=== PATIENT | female | born 1935 | race Caucasian/White ===

== ENCOUNTER 2016-04-11 16:10 | Emergency (ER) | payer MEDICARE ==
[2016-04-11 16:26] VITALS: TEMP 97
[2016-04-11] MEDS ORDERED: hydrALAZINE HCL 20 MG/ML 1 ML VIAL IVP STA ×3 (17:12→18:00)
[2016-04-11] MEDS ORDERED: SODIUM CHLORIDE 0.9% 1,000 ML IV STA (17:12)
--- NOTE | 2016-04-11 17:26 | ED ---
General Adult HPI - General Chief complaint: Headache Stated complaint: Dizzy, Blood Pressure Time Seen by Provider: 04/11/16 17:00 Source: patient, RN notes reviewed Mode of arrival: wheelchair Limitations: no limitations - History of Present Illness Initial comments: Patient is 80-year-old female who resents emergency room today with chief complaint of headaches off and on over the last week. She states seems to be there 1 day and gone the next. She states she noticed that today was elevated again. She states she talked to her niece who is a nurse [employer] to check her blood pressure. She states she noticed that her blood pressure was elevated. States is worse when she was standing better when she was laying down. She does admit that she's felt a little faint and dizzy today. Patient does admit to headache located in the front. She describes it as a sharp pain currently rates it a 4/10 and admitting that it does feel slightly better at this time. She denies any other complaints associated symptoms currently. - Related Data Home Medications Medication Instructions Recorded Confirmed Bimatoprost [Lumigan .01% Ophth 1 drop BOTH EYES HS 11/07/13 04/11/16 Soln] Furosemide [Lasix] 20 mg PO DAILY 11/07/13 04/11/16 Gabapentin [Neurontin] 600 mg PO DAILY 11/07/13 04/11/16 Isosorbide Mononitrate [Imdur] 60 mg PO QAM 11/07/13 04/11/16 Montelukast [Singulair] 10 mg PO HS 11/07/13 04/11/16 Warfarin [Coumadin] 5 mg PO SUWETHSA 11/07/13 04/11/16 Allopurinol [Zyloprim] 100 mg PO BID 07/09/14 04/11/16 Nitroglycerin Sl Tabs [Nitrostat] 0.4 mg SUBLINGUAL Q5M PRN 07/09/14 04/11/16 Warfarin [Coumadin] 2.5 mg PO MOTUFR 11/24/14 04/11/16 Budesonide [Pulmicort] 0.5 mg INHALATION RT-BID 03/29/16 04/11/16 HYDROcodone/APAP 7.5-325MG [[place] 1 tab PO Q6H PRN 03/29/16 04/11/16 7.5-325] Losartan-Hctz 50-12.5 mg [Hyzaar 1 tab PO DAILY 03/29/16 04/11/16 50-12.5] Meloxicam [Mobic] 15 mg PO DAILY 03/29/16 04/11/16 Metoprolol Tartrate [Lopressor] 25 mg PO BID 03/29/16 04/11/16 Omeprazole 20 mg PO BID 03/29/16 04/11/16 Simvastatin [Zocor] 40 mg PO HS 03/29/16 04/11/16 Sucralfate [Carafate] 1 gm PO AC-TID 03/29/16 04/11/16 traMADol HCL [Ultram] 50 mg PO Q8H PRN 03/29/16 04/11/16 Previous Rx's Medication Instructions Recorded Orphenadrine [Norflex] 100 mg PO Q12H #10 tablet.er 03/29/16 Allergies Allergy/AdvReac Type Severity Reaction Status Date / Time tape Allergy Unknown Uncoded 03/29/16 13:38 Review of Systems ROS Statement: Those systems with pertinent positive or pertinent negative responses have been documented in the HPI. ROS Other: All systems not noted in ROS Statement are negative. Past Medical History Past Medical History: Asthma, COPD, Hyperlipidemia, Hypertension, Osteoarthritis (OA) Additional Past Medical History / Comment(s): Hx. gout, osteoporosis, arthritis , deep venous thrombophletitis, hiatal hernial dermatitis glaucoma , pacemaker, degenerative disc disease History of Any Multi-Drug Resistant Organisms: None Reported Past Surgical History: Adenoidectomy, Appendectomy, Cholecystectomy, Hernia Repair, Orthopedic Surgery, Pacemaker, Tonsillectomy, Tubal Ligation Additional Past Surgical History / Comment(s): Hx throat nodule removed, mole left eye, D&C, bilat cataracts removed . RIGHT KNEE REPLACEMENT X 2. , hiatal hernia repair Past Anesthesia/Blood Transfusion Reactions: No Reported Reaction Type of Cardiac Device: Permanent Pacemaker Device Placement Date:: October 2012 Past Psychological History: No Psychological Hx Reported Smoking Status: Former smoker Past Alcohol Use History: None Reported Past Drug Use History: None Reported - Past Family History Father Additional Family Medical History / Comment(s): Mother-cardiac and cancer Father pulmonary fibrosis, Sister-melanoma 3 step siblings with cancer, dr oreilly told patient that she just clots fast but her siblings should be tested for MUTAHON-MTHFR gene General Exam - General Exam Comments Initial Comments: General: The patient is awake and alert, in no distress, and does not appear acutely ill. Eye: Pupils are equal, round and reactive to light, extra-ocular movements are intact. No nystagmus. There is normal conjunctiva bilaterally. No signs of icterus. Ears, nose, mouth and throat: There are moist mucous membranes and no oral lesions. Neck: The neck is supple, there is no tenderness or JVD. Cardiovascular: There is a regular rate and rhythm. No murmur, rub or gallop is appreciated. Respiratory: Lungs are clear to auscultation, respirations are non-labored, breath sounds are equal. No wheezes, stridor, rales, or rhonchi. Musculoskeletal: Normal ROM, no tenderness. Strength 5/5. Sensation intact. Pulses equal bilaterally 2+. Neurological: A&O x 3. CN II-XII intact, There are no obvious motor or sensory deficits. Coordination appears grossly intact. Speech is normal. Skin: Skin is warm and dry and no rashes or lesions are noted. Psychiatric: Cooperative, appropriate mood & affect, normal judgment. Limitations: no limitations Course Vital Signs 04/11/16 04/11/16 04/11/16 16:18 16:55 16:59 Temperature 97.0 F L Pulse Rate 80 77 65 Respiratory 16 18 18 Rate Blood Pressure 189/94 189/91 171/89 O2 Sat by Pulse 96 96 Oximetry 04/11/16 04/11/16 04/11/16 17:55 18:18 19:06 Temperature Pulse Rate 65 67 66 Respiratory 18 18 20 Rate Blood Pressure 176/87 160/76 188/76 O2 Sat by Pulse 98 98 98 Oximetry 04/11/16 04/11/16 04/11/16 19:31 19:55 20:25 Temperature Pulse Rate 77 76 79 Respiratory 20 18 22 Rate Blood Pressure 155/70 166/70 177/88 O2 Sat by Pulse 98 98 97 Oximetry EKG Findings - EKG Comments: EKG Findings:: EKG performed at 1900: Shows an electronically paced rhythm at 60 bpm. IL interval is 270. QRS 102. QT/QTc is 434/434. No acute ST changes. Medical Decision Making - Medical Decision Making Case discussed in detail with attending physician Dr. argueta. Patient's CAT scan negative for any acute abnormality. EKG shows electronically paced rhythm. Patient's labs been reviewed and are unremarkable. Patient blood pressure consistently 170s over 90s here in the emergency room. Given doses of hydralazine which she states made her feel "stuffy". Patient was given Benadryl which made her feel better. She was given her home medication as she states she is not taking her blood pressure medicines. She states she did not take them because she was not feeling well earlier. States she's noticed her blood pressure increases when she sits up or stands. Options were discussed with the patient about admission and stay in observation overnight if she was not feeling well. At this time she has been able to ambulate states she feels well to go home. Patient is advised to use her medications as prescribed and follow-up with her family doctor and room service waiter/waitress over the next 1-2 days. Advised to return if any symptoms increase or worsen or for any other concerns. - Lab Data Result diagrams: 04/11/16 Unknown 04/11/16 Unknown Lab Results 04/11/16 04/11/16 04/11/16 Range/Units Unknown Unknown Unknown WBC 8.4 (3.8-10.6) k/uL RBC 4.28 (3.80-5.40) m/uL Hgb 12.8 (11.4-16.0) gm/dL Hct 41.6 (34.0-46.0) % MCV 97.1 (80.0-100.0) fL MCH 29.8 (25.0-35.0) pg MCHC 30.7 L (31.0-37.0) g/dL RDW 14.3 (11.5-15.5) % Plt Count 403 (150-450) k/uL Neutrophils % 72 % Lymphocytes % 17 % Monocytes % 6 % Eosinophils % 3 % Basophils % 1 % Neutrophils # 6.0 (1.3-7.7) k/uL Lymphocytes # 1.5 (1.0-4.8) k/uL Monocytes # 0.5 (0-1.0) k/uL Eosinophils # 0.2 (0-0.7) k/uL Basophils # 0.1 (0-0.2) k/uL PT 11.9 (9.0-12.0) sec INR 1.2 (<1.1) APTT 26.1 (22.0-30.0) sec Sodium 142 (137-145) mmol/L Potassium 3.5 (3.5-5.1) mmol/L Chloride 107 (98-107) mmol/L Carbon Dioxide 25 (22-30) mmol/L Anion Gap 10 mmol/L BUN 20 H (7-17) mg/dL Creatinine 0.80 (0.52-1.04) mg/dL Est GFR (MDRD) Af Amer >60 (>60 ml/min/1.73 sqM) Est GFR (MDRD) Non-Af >60 (>60 ml/min/1.73 sqM) Glucose 86 (74-99) mg/dL Calcium 10.4 H (8.4-10.2) mg/dL Troponin I (0.000-0.034) ng/mL 04/11/16 Range/Units Unknown WBC (3.8-10.6) k/uL RBC (3.80-5.40) m/uL Hgb (11.4-16.0) gm/dL Hct (34.0-46.0) % MCV (80.0-100.0) fL MCH (25.0-35.0) pg MCHC (31.0-37.0) g/dL RDW (11.5-15.5) % Plt Count (150-450) k/uL Neutrophils % % Lymphocytes % % Monocytes % % Eosinophils % % Basophils % % Neutrophils # (1.3-7.7) k/uL Lymphocytes # (1.0-4.8) k/uL Monocytes # (0-1.0) k/uL Eosinophils # (0-0.7) k/uL Basophils # (0-0.2) k/uL PT (9.0-12.0) sec INR (<1.1) APTT (22.0-30.0) sec Sodium (137-145) mmol/L Potassium (3.5-5.1) mmol/L Chloride (98-107) mmol/L Carbon Dioxide (22-30) mmol/L Anion Gap mmol/L BUN (7-17) mg/dL Creatinine (0.52-1.04) mg/dL Est GFR (MDRD) Af Amer (>60 ml/min/1.73 sqM) Est GFR (MDRD) Non-Af (>60 ml/min/1.73 sqM) Glucose (74-99) mg/dL Calcium (8.4-10.2) mg/dL Troponin I <0.012 (0.000-0.034) ng/mL Disposition Clinical Impression: Hypertension, Lightheaded Disposition: HOME SELF-CARE Condition: Good Instructions: Lightheadedness (ED) Additional Instructions: Please follow-up with your family doctor and room service waiter/waitress over the next 1-2 days. Please use medications as previously prescribed for your blood pressure. Please return to emergency room if any symptoms increase or worsen or for any other concerns. Time of Disposition: 20:30
[2016-04-11 17:51] LABS: Basophils # (A) 0.1 k/uL (0-0.2); Basophils % (A) 1 %; CH 31.4; CHCM 32.5; Eosinophils # (A) 0.2 k/uL (0-0.7); Eosinophils % (A) 3 %; HCT 41.6 % (34.0-46.0); HDW 3.05; HGB 12.8 gm/dL (11.4-16.0); Luc # (Auto) 0.13; Luc % (Auto) 2; Lymphocytes # (A) 1.5 k/uL (1.0-4.8); Lymphocytes % (A) 17 %; MCH 29.8 pg (25.0-35.0); MCHC 30.7 g/dL (31.0-37.0); MCV 97.1 fL (80.0-100.0); Mean Platelet Volume 7.7; Monocytes # (A) 0.5 k/uL (0-1.0); Monocytes % (A) 6 %; Neutrophils % (A) 72 %; RBC 4.28 m/uL (3.80-5.40); RDW 14.3 % (11.5-15.5); WBC 8.4 k/uL (3.8-10.6); WBC (Perox) 8.53
--- NOTE | 2016-04-11 17:56 | CT ---
EXAMINATION TYPE: CT brain wo con DATE OF EXAM: 04/11/2016 5:48 PM COMPARISON: 02/15/2016 HISTORY: Patient complains of headache and high blood pressure. CT DLP: 1036 mGycm Automated exposure control for dose reduction was used. FINDINGS: There is cerebral cortical atrophy. There is no mass effect or midline shift. There is no sign of int racranial hemorrhage. The calvarium is intact. IMPRESSION: Cerebral atrophy. No acute intracranial abnormality. No change.
[2016-04-11 18:02] LABS: Anion Gap 10 mmol/L; Blood Urea Nitrogen 20 mg/dL (7-17); Calcium 10.4 mg/dL (8.4-10.2); Carbon Dioxide 25 mmol/L (22-30); Chloride 107 mmol/L (98-107); Glucose 86 mg/dL (74-99); INR 1.2 (<1.1); Non-African American GFR(MDRD) >60 (>60 ml/min/1.73 sqM); Partial Thromboplastin Time 26.1 sec (22.0-30.0); Potassium 3.5 mmol/L (3.5-5.1); Prothrombin Time 11.9 sec (9.0-12.0); Sodium 142 mmol/L (137-145)
[2016-04-11] MEDS ORDERED: diphenhydrAMINE 50 MG/ML 1 ML VIAL IVP STA (18:24)
[2016-04-11] MEDS ORDERED: ACETAMINOPHEN IV (For NPO) 1,000 MG in SALINE 100 100ML.BAG IVPB STA (18:36)
[2016-04-11] MEDS ORDERED: HYDROcodone/APAP 7.5-325MG 1 EACH TAB PO ONE (18:38)
[2016-04-11] MEDS ORDERED: LOSARTAN-HCTZ 50-12.5 MG 1 EACH TAB PO STA (19:09)
[2016-04-11] MEDS ORDERED: METOPROLOL TARTRATE 25 MG TAB PO STA (19:09)
[2016-04-11] MEDS ORDERED: LORazepam 2 MG/ML SYRINGE IV STA (19:10)
[2016-04-11 20:27] VITALS: BP 177/88; PULSE 79; RESP 22
== END 2016-04-11 20:46 | disposition home or self-care (01) ==
LOC: EC 16:10
DX: I10 Essential (primary) hypertension (principal); R51 Headache; G31.9 Degenerative disease of nervous system, unspecified; J44.9 Chronic obstructive pulmonary disease, unspecified; J45.909 Unspecified asthma, uncomplicated; M81.0 Age-related osteoporosis without current pathological fracture; M19.90 Unspecified osteoarthritis, unspecified site; H40.9 Unspecified glaucoma; Z95.0 Presence of cardiac pacemaker; Z79.01 Long term (current) use of anticoagulants; Z91.048 Other nonmedicinal substance allergy status; Z86.718 Personal history of other venous thrombosis and embolism; Z87.891 Personal history of nicotine dependence; Z79.899 Other long term (current) drug therapy
CPT/HCPCS: 99284; 96374; 96375 ×2; 96376; 96361 ×3; 36415; 93005; 80048; 84484; 85025; 85610; 85730; 70450; J2060; J0360; J1200

== ENCOUNTER 2016-04-12 09:36 | Observation (INO) | payer MEDICARE ==
[2016-04-12] MEDS ORDERED: METOCLOPRAMIDE 5 MG/ML 2 ML VIAL IVP STA (10:10)
[2016-04-12] MEDS ORDERED: MECLIZINE 12.5 MG TAB PO STA (10:10)
[2016-04-12] MEDS ORDERED: SODIUM CHLORIDE 0.9% 1,000 ML IV STA (10:10)
--- NOTE | 2016-04-12 10:51 | XR ---
EXAMINATION TYPE: XR chest 2V DATE OF EXAM: 04/12/2016 10:38 AM COMPARISON: November 26, 2014 HISTORY: Shortness of breath TECHNIQUE: Frontal and lateral views of the chest are obtained. FINDINGS: Scattered senescent parenchymal changes noted. Hyperinflation compatible with COPD. No evidence for infiltrate. No evidence for atelectasis. Heart size is stable. Mediastinal structures are stable and grossly unremarkable. No evidence for hilar prominence. Degenerative changes dorsal spine. IMPRESSION: 1. No evidence for acute pulmonary disease.
--- NOTE | 2016-04-12 10:52 | XR ---
EXAMINATION TYPE: XR KUB DATE OF EXAM: 04/12/2016 10:39 AM COMPARISON: NONE HISTORY: Pain TECHNIQUE: Single supine KUB image of the abdomen is obtained FINDINGS: Small bowel demonstrates no evidence for dilatation or air fluid levels. Gas and fecal material is seen in non-distended colon. No convincing evidence for pneumoperitoneum. No unusual calcifications. The lung bases are clear. The osseous structures are intact. IMPRESSION: 1. Overall nonobstructive bowel gas pattern.
[2016-04-12 10:54] LABS: Basophils # (A) 0.1 k/uL (0-0.2); Basophils % (A) 1 %; CHCM 32.7; Eosinophils # (A) 0.1 k/uL (0-0.7); Eosinophils % (A) 1 %; HCT 42.3 % (34.0-46.0); HDW 3.05; HGB 13.6 gm/dL (11.4-16.0); Luc # (Auto) 0.07; Luc % (Auto) 1; Lymphocytes # (A) 1.3 k/uL (1.0-4.8); Lymphocytes % (A) 13 %; MCH 30.8 pg (25.0-35.0); MCHC 32.2 g/dL (31.0-37.0); MCV 95.6 fL (80.0-100.0); Mean Platelet Volume 8.2; Monocytes # (A) 0.5 k/uL (0-1.0); Monocytes % (A) 6 %; Neutrophils # (A) 7.8 k/uL (1.3-7.7); Neutrophils % (A) 80 %; RBC 4.42 m/uL (3.80-5.40); RDW 14.5 % (11.5-15.5); WBC 9.8 k/uL (3.8-10.6); WBC (Perox) 9.77
[2016-04-12 11:03] LABS: ALT 37 U/L (9-52); AST 31 U/L (14-36); Alkaline Phosphatase 162 U/L (38-126); Amylase 115 U/L (30-110); Anion Gap 11 mmol/L; Blood Urea Nitrogen 16 mg/dL (7-17); Calcium 10.7 mg/dL (8.4-10.2); Carbon Dioxide 25 mmol/L (22-30); Chloride 108 mmol/L (98-107); Glucose 123 mg/dL (74-99); Non-African American GFR(MDRD) >60 (>60 ml/min/1.73 sqM); Potassium 4.1 mmol/L (3.5-5.1); Sodium 144 mmol/L (137-145); Total Bilirubin 0.7 mg/dL (0.2-1.3); Total Protein 7.5 g/dL (6.3-8.2)
--- NOTE | 2016-04-12 11:42 | ED ---
Nausea/Vomiting/Diarrhea HPI - General Chief complaint: Nausea/Vomiting/Diarrhea Stated complaint: Nausea/Vomiting Time Seen by Provider: 04/12/16 09:56 Source: patient, RN notes reviewed Mode of arrival: EMS Limitations: no limitations - History of Present Illness Initial comments: 80-year-old female presents emergency Department with chief complaint of nausea vomiting. Patient was seen here yesterday for dizziness. Patient states that she was not sent home been medications. He states that she continues to be dizzy. Patient states that she's been vomiting all night long. Patient states is exacerbated with movements. She denies any chest pain. Has any shortness of breath. Patient denies fever, chills, diarrhea. She states she is very nauseated and has a headache. Patient did have CT, lab work yesterday which showed no acute abnormality's. Patient states her blood pressure was elevated yesterday. - Related Data Home Medications Medication Instructions Recorded Confirmed Bimatoprost [[place] .01% Ophth 1 drop BOTH EYES HS 11/07/13 04/12/16 Soln] Furosemide [Lasix] 20 mg PO DAILY 11/07/13 04/12/16 Gabapentin [Neurontin] 600 mg PO DAILY 11/07/13 04/12/16 Isosorbide Mononitrate [Imdur] 60 mg PO QAM 11/07/13 04/12/16 Montelukast [Singulair] 10 mg PO HS 11/07/13 04/12/16 Warfarin [Coumadin] 5 mg PO SUWETHSA 11/07/13 04/12/16 Allopurinol [Zyloprim] 100 mg PO BID 07/09/14 04/12/16 Nitroglycerin Sl Tabs [Nitrostat] 0.4 mg SUBLINGUAL Q5M PRN 07/09/14 04/12/16 Warfarin [Coumadin] 2.5 mg PO MOTUFR 11/24/14 04/12/16 Budesonide [Pulmicort] 0.5 mg INHALATION RT-BID 03/29/16 04/12/16 HYDROcodone/APAP 7.5-325MG [[place] 1 tab PO Q6H PRN 03/29/16 04/12/16 7.5-325] Losartan-Hctz 50-12.5 mg [Hyzaar 1 tab PO DAILY 03/29/16 04/12/16 50-12.5] Meloxicam [Mobic] 15 mg PO DAILY 03/29/16 04/12/16 Metoprolol Tartrate [Lopressor] 25 mg PO BID 03/29/16 04/12/16 Omeprazole 20 mg PO BID 03/29/16 04/12/16 Simvastatin [Zocor] 40 mg PO HS 03/29/16 04/12/16 Sucralfate [Carafate] 1 gm PO AC-TID 03/29/16 04/12/16 traMADol HCL [Ultram] 50 mg PO Q8H PRN 03/29/16 04/12/16 Previous Rx's Medication Instructions Recorded Orphenadrine [Norflex] 100 mg PO Q12H #10 tablet.er 03/29/16 Allergies Allergy/AdvReac Type Severity Reaction Status Date / Time tape Allergy Unknown Uncoded 04/12/16 09:51 Review of Systems ROS Statement: Those systems with pertinent positive or pertinent negative responses have been documented in the HPI. ROS Other: All systems not noted in ROS Statement are negative. Past Medical History Past Medical History: Asthma, COPD, Hyperlipidemia, Hypertension, Osteoarthritis (OA) Additional Past Medical History / Comment(s): Hx. gout, osteoporosis, arthritis , deep venous thrombophletitis, hiatal hernial dermatitis glaucoma , pacemaker, degenerative disc disease History of Any Multi-Drug Resistant Organisms: None Reported Past Surgical History: Adenoidectomy, Appendectomy, Cholecystectomy, Hernia Repair, Orthopedic Surgery, Pacemaker, Tonsillectomy, Tubal Ligation Additional Past Surgical History / Comment(s): Hx throat nodule removed, mole left eye, D&C, bilat cataracts removed . RIGHT KNEE REPLACEMENT X 2. , hiatal hernia repair Past Anesthesia/Blood Transfusion Reactions: No Reported Reaction Type of Cardiac Device: Permanent Pacemaker Device Placement Date:: October 2012 Past Psychological History: No Psychological Hx Reported Smoking Status: Former smoker Past Alcohol Use History: None Reported Past Drug Use History: None Reported - Past Family History Father Additional Family Medical History / Comment(s): Mother-cardiac and cancer Father pulmonary fibrosis, Sister-melanoma 3 step siblings with cancer, dr oreilly told patient that she just clots fast but her siblings should be tested for MUTAHON-MTHFR gene General Exam Limitations: no limitations General appearance: alert, in no apparent distress Head exam: Present: atraumatic, normocephalic, normal inspection Eye exam: Present: normal appearance, PERRL, EOMI. Absent: scleral icterus, conjunctival injection, periorbital swelling ENT exam: Present: normal exam, normal oropharynx, mucous membranes moist, TM's normal bilaterally, normal external ear exam Neck exam: Present: normal inspection, full ROM. Absent: tenderness, meningismus, lymphadenopathy Respiratory exam: Present: normal lung sounds bilaterally. Absent: respiratory distress, wheezes, rales, rhonchi, stridor Cardiovascular Exam: Present: regular rate, normal rhythm, normal heart sounds. Absent: systolic murmur, diastolic murmur, rubs, gallop, clicks GI/Abdominal exam: Present: soft, normal bowel sounds. Absent: distended, tenderness, guarding, rebound, rigid Neurological exam: Present: alert, oriented X3, CN II-XII intact Skin exam: Present: warm, dry, intact, normal color. Absent: rash Course Vital Signs 04/12/16 09:48 Temperature 97 F L Pulse Rate 62 Respiratory 20 Rate Blood Pressure 184/82 O2 Sat by Pulse 96 Oximetry Medical Decision Making - Medical Decision Making 72-year-old female presented for dizziness. Patient UNABLE to ambulate here in emergency department. Patient fell outpatient treatment. Patient will be admitted at this time. - Lab Data Result diagrams: 04/12/16 10:23 04/12/16 10:23 Lab Results 04/12/16 04/12/16 04/12/16 Range/Units 10:23 10:23 10:23 WBC 9.8 (3.8-10.6) k/uL RBC 4.42 (3.80-5.40) m/uL Hgb 13.6 (11.4-16.0) gm/dL Hct 42.3 (34.0-46.0) % MCV 95.6 (80.0-100.0) fL MCH 30.8 (25.0-35.0) pg MCHC 32.2 (31.0-37.0) g/dL RDW 14.5 (11.5-15.5) % Plt Count 432 (150-450) k/uL Neutrophils % 80 % Lymphocytes % 13 % Monocytes % 6 % Eosinophils % 1 % Basophils % 1 % Neutrophils # 7.8 H (1.3-7.7) k/uL Lymphocytes # 1.3 (1.0-4.8) k/uL Monocytes # 0.5 (0-1.0) k/uL Eosinophils # 0.1 (0-0.7) k/uL Basophils # 0.1 (0-0.2) k/uL Sodium 144 (137-145) mmol/L Potassium 4.1 (3.5-5.1) mmol/L Chloride 108 H (98-107) mmol/L Carbon Dioxide 25 (22-30) mmol/L Anion Gap 11 mmol/L BUN 16 (7-17) mg/dL Creatinine 0.77 (0.52-1.04) mg/dL Est GFR (MDRD) Af Amer >60 (>60 ml/min/1.73 sqM) Est GFR (MDRD) Non-Af >60 (>60 ml/min/1.73 sqM) Glucose 123 H (74-99) mg/dL Calcium 10.7 H (8.4-10.2) mg/dL Total Bilirubin 0.7 (0.2-1.3) mg/dL AST 31 (14-36) U/L ALT 37 (9-52) U/L Alkaline Phosphatase 162 H (38-126) U/L Troponin I <0.012 (0.000-0.034) ng/mL Total Protein 7.5 (6.3-8.2) g/dL Albumin 4.1 (3.5-5.0) g/dL Amylase 115 H (30-110) U/L Lipase 86 (23-300) U/L Disposition Clinical Impression: Dizziness, Weakness, Hypertension Disposition: ADMITTED IP TO THIS [facility] Time of Disposition: 13:04
[2016-04-12] MEDS ORDERED: NALOXONE 0.4 MG/ML 1 ML VIAL IV PRN (13:04)
[2016-04-12] MEDS ORDERED: ONDANSETRON 4 MG/2 ML VIAL IVP PRN (13:04)
[2016-04-12] MEDS ORDERED: MECLIZINE 25 MG TAB PO PRN (13:05)
[2016-04-12 13:35] LABS: INR 1.2 (<1.1); Partial Thromboplastin Time 26.8 sec (22.0-30.0); Prothrombin Time 11.6 sec (9.0-12.0)
[2016-04-12] MEDS ORDERED: RX INFO: IV CONTRAST WAS GIVEN 1 EACH MISC MISCELLANE PRN (14:00)
[2016-04-12 14:08] LABS: Appearance,Urine Clear (Clear); Bilirubin,Urine Negative (Negative); Glucose,Urine (UA) Negative (Negative); Ketones,Urine Trace (Negative); Leukocyte Esterase,Urine Trace (Negative); Mucus,Urine Rare /hpf; Nitrite,Urine Negative (Negative); Particle Count 2494; Protein,Urine Negative (Negative); RBC,Urine 2 /hpf (0-5); Specific Gravity,Urine 1.015 (1.001-1.035); Squamous Epithelial Cell,Urine 3 /hpf (0-4); UA Billing (MACRO vs. MICRO) MICRO; Urobilinogen,Urine <2.0 mg/dL (<2.0); WBC,Urine 2 /hpf (0-5)
[2016-04-12] MEDS: SODIUM CHLORIDE 0.9% 1,000 ML IV SCH (14:20)
--- NOTE | 2016-04-12 15:09 | CT ---
EXAMINATION TYPE: CT brain w con DATE OF EXAM: 04/12/2016 2:56 PM COMPARISON: CT brain from yesterday HISTORY: Headache and dizziness. CT DLP: 1008.00 mGycm Automated exposure control for dose reduction was used. CONTRAST: CT scan of the head is performed with IV Contrast, patient injected with 100 mL of Omnipaque 300. FINDINGS: There is no abnormal enhancing mass or midline shift identified. There is ventricular and sulcal prom inence consistent with age-related cerebral atrophy. Neither lens is well-seen. Visualized paranasal sinuses are clear. IMPRESSION: No abnormal enhancing intraparenchymal mass is present. Moderate diffuse age-related atrophy is redem onstrated felt stable.
[2016-04-12] MEDS: PANTOPRAZOLE 40 MG TABLET PO SCH (17:19)
[2016-04-12] MEDS ORDERED: WARFARIN 2.5 MG TAB PO SCH (18:00)
[2016-04-12] MEDS ORDERED: traMADol 50 MG TAB PO PRN (19:48)
[2016-04-12] MEDS ORDERED: HYDROcodone/APAP 7.5-325MG 1 EACH TAB PO PRN (19:48)
[2016-04-12] MEDS: BUDESONIDE 0.5 MG/2 ML NEBU INHALATION SCH (20:23)
[2016-04-12] MEDS: WARFARIN 5 MG TAB PO SCH (20:48)
[2016-04-12] MEDS: ALLOPURINOL 100 MG TAB PO SCH (20:49)
[2016-04-12] MEDS: LOSARTAN-HCTZ 50-12.5 MG 1 EACH TAB PO SCH (20:49)
[2016-04-12] MEDS: CYCLOBENZAPRINE 10 MG TAB PO SCH (20:49)
[2016-04-12] MEDS: METOPROLOL TARTRATE 50 MG TAB PO SCH (20:49)
[2016-04-12] MEDS ORDERED: ATORVASTATIN 20 MG TAB PO SCH (21:00)
[2016-04-12] MEDS ORDERED: LATANOPROST 0.005% OPHTH DROPS 2.5 ML BTL BOTH EYES SCH (21:00)
[2016-04-12] MEDS ORDERED: METOPROLOL TARTRATE 25 MG TAB PO SCH (21:00)
[2016-04-12] MEDS ORDERED: MONTELUKAST 10 MG TAB PO SCH (21:00)
--- NOTE | 2016-04-12 22:57 | HP ---
DATE OF ADMISSION: 04/12/2016 PRESENTING COMPLAINT: Head trauma. HISTORY OF PRESENTING COMPLAINT: This is a 80-year-old patient of Dr. Cm whose chronic stable medical conditions include asthma, hyperlipidemia, osteoarthritis, irritable bowel syndrome. She states that her blood pressure runs on the higher side, presented with her head throbbing, n, and vomited last night, blood pressure was ( ) in the ER and patient admitted for the same. Denies any chest pain. Just feels rundown. No appetite, nauseated. REVIEW OF SYSTEMS: CONSTITUTIONAL: Tired. HEENT: As above. RESPIRATORY: None. CARDIOVASCULAR: None. GASTROINTESTINAL: As above. GENITOURINARY: None. MUSCULOSKELETAL: Aches and pains in multiple joints. Dermatological: None. HEMATOLOGICAL: None. LYMPHATICS: None. PSYCHIATRY: None. NEUROLOGICAL: No focal signs of headache is present. Past medical history of asthma, hyperlipidemia, hypertension, osteoarthritis, ( ) in the ( ) arm, permanent pacemaker, irritable bowel syndrome, osteoarthritis in hands, legs and the back. PAST SURGICAL HISTORY: Adenoidectomy, appendectomy, cholecystectomy, hernia repair, pacemaker, tonsillectomy, tubal ligation, history of throat nodule removed, molar left eyelid, bilateral cataract removal, right knee replacement x2, hiatal hernia repair, I&D of left ( ) abscess. Permanent pacemaker. SOCIAL HISTORY: Lives by herself. Uses a cane. Smoked a pack a day for 30 years; stopped in 1989. FAMILY HISTORY: Mother had ( ), father had pulmonary fibrosis, ( ) melanoma. Three stepsiblings also had cancer. Family is being checked for MTHFR gene mutation. HOME MEDICATIONS: 1. Ultram 50 mg p.o. q.8 p.r.n. 2. Coumadin 2.5 mg Tuesday, Tuesday, Tuesday and 5 mg on Tuesday, Tuesday and , Tuesday. 3. Carafate 1 gm p.o. a.c. t.i.d. 4. Zocor 40 mg p.o. q.h.s. 5. Norflex 1 mg p.o. q.12. 6. Omeprazole 20 mg p.o. b.i.d. 7. Nitrostat 0.4 sublingual q.5 p.r.n. 8. Singulair 10 mg at bedtime. 9. Lopressor 25 p.o. b.i.d. 10. Mobic 50 mg p.o. daily. 11. Hyzaar 50/12 .5, 1 tablet p.o. daily. 12. Imdur 60 mg p.o. daily. 13. [place] 7.5 1 tablets p.o. q.6 p.r.n. 14. Neurontin 600 mg p.o. daily. 15. Lasix 20 mg p.o. daily. 16. Pulmicort 0.5 mg inhalation b.i.d. 17. Lum[place] 0.01% one drop to both eyes q.h.s. 18. Allopurinol 100 mg p.o. b.i.d. ALLERGIES TO TAPE. On examination: vital signs: temperature 97, pulse 52, respiration 20, blood pressure 184/82, pulse ox 96% on room air. GENERAL APPEARANCE: Average build, sitting up, tired appearing. EYES: Pupils equal. Conjunctivae normal. HEENT: External appearance of nose and ears normal. Oral cavity normal. NECK: JVD not raised. Mass not palpable. RESPIRATORY: Effort normal. Lungs slight decreased breath sounds. CARDIOVASCULAR: First and second seconds are normal. No edema. ABDOMEN: Soft, nontender. Liver and spleen not palpable. LYMPHATIC: No lymph nodes palpable in the neck or axillae. PSYCHIATRY: Alert and oriented x3. Mood and affect normal. NEUROLOGICAL: Pupils equal. Cranial grossly intact. Power and sensation grossly intact. INVESTIGATIONS: White count 9.8, hemoglobin 13.6, potassium 4.1. BUN and creatinine normal. ASSESSMENT: 1. Accelerated hypertension, causing cephalgia. 2. Mild persistent asthma, chronic. 3. Hyperlipidemia. 4. Primary osteoarthritis in multiple joints including hands, legs, knees, bilateral. 5. Permanent pacemaker. 6. Chronic ( ). 7. Irritable bowel syndrome. PLAN: At this point, patient will be put on a full liquid diet, not able to tolerate much. We will increase the dose of Lopressor to 50 mg b.i.d. Also increase the Hyzaar to 50/12.5 twice a day. The patient also on Carafate that ( ) absorption of the medications, hence we will discontinue the Carafate. We will also discontinue patient's NSAIDS and give the patient Protonix and see how she fares. The patient INR on the lower side, we will increase Coumadin to 5 mg daily. Care was discussed with patient.
[2016-04-13] MEDS: SODIUM CHLORIDE 0.9% 1,000 ML IV SCH ×2 (05:02→14:20)
[2016-04-13 07:48] VITALS: RESP 16
[2016-04-13] MEDS: METOPROLOL TARTRATE 50 MG TAB PO SCH (08:23)
[2016-04-13] MEDS: ALLOPURINOL 100 MG TAB PO SCH (08:23)
[2016-04-13] MEDS: CYCLOBENZAPRINE 10 MG TAB PO SCH (08:23)
[2016-04-13] MEDS: PANTOPRAZOLE 40 MG TABLET PO SCH ×2 (08:24→17:23)
[2016-04-13] MEDS: LOSARTAN-HCTZ 50-12.5 MG 1 EACH TAB PO SCH (08:24)
[2016-04-13] MEDS ORDERED: LOSARTAN-HCTZ 50-12.5 MG 1 EACH TAB PO SCH (09:00)
[2016-04-13] MEDS ORDERED: MELOXICAM 7.5 MG TAB PO SCH (09:00)
[2016-04-13] MEDS ORDERED: ISOSORBIDE MONONITRATE ER 60 MG TAB.ER.24H PO SCH (09:00)
[2016-04-13] MEDS ORDERED: GABAPENTIN 300 MG CAP PO SCH (09:00)
[2016-04-13] MEDS ORDERED: FUROSEMIDE 20 MG TAB PO SCH (09:00)
[2016-04-13] MEDS: BUDESONIDE 0.5 MG/2 ML NEBU INHALATION SCH (10:06)
--- NOTE | 2016-04-13 10:23 | ECHOF ---
Referral Reason:htn MEASUREMENTS -------- HEIGHT: 154.9 cm WEIGHT: 93.9 kg BP: 143/64 RVIDd: 3.4 cm (< 3.3) IVSd: 1.3 cm (0.6 - 1.1) LVIDd: 4.4 cm (3.9 - 5.3) LVPWd: 1.3 cm (0.6 - 1.1) IVSs: 1.9 cm LVIDs: 3.2 cm LVPWs: 2.0 cm LA Diam: 3.8 cm (2.7 - 3.8) LAESV Index (A-L): 29.64 ml/m Ao Diam: 3.4 cm (2.0 - 3.7) AV Cusp: 2.2 cm (1.5 - 2.6) MV EXCURSION: 10.325 mm (> 18.000) MV EF SLOPE: 80 mm/s (70 - 150) EPSS: 0.8 cm MV E Juarez: 0.78 m/s MV DecT: 361 ms MV A Juarez: 1.13 m/s MV E/A Ratio: 0.69 RAP: 5.00 mmHg RVSP: 32.66 mmHg FINDINGS -------- Sinus rhythm. This was a technically good study. The left ventricular size is normal. There is mild concentric left ventricular hypertrophy. Overall left ventricular systolic function is normal with, an EF between 60 - 65 %. The right ventricle is mildly enlarged. LA is midly dilated 29-33ml/m2. The right atrium is normal in size. There is mild aortic valve sclerosis. The mitral valve leaflets are mildly thickened. Mild mitral annular calcification present. There is trace to mild mitral regurgitation. Mild tricuspid regurgitation present. Right ventricular systolic pressure is normal at < 35 mmHg. The pulmonic valve was not well visualized. The aortic root size is normal. The inferior vena cava is mildly dilated. There is no pericardial effusion. CONCLUSIONS -------- 1. Sinus rhythm. 2. The mitral valve leaflets are mildly thickened. 3. Mild mitral annular calcification present. 4. There is trace to mild mitral regurgitation. 5. Mild tricuspid regurgitation present. 6. Right ventricular systolic pressure is normal at < 35 mmHg. 7. The pulmonic valve was not well visualized. 8. The aortic root size is normal. 9. The inferior vena cava is mildly dilated. 10. There is no pericardial effusion. 11. This was a technically good study. 12. The left ventricular size is normal. 13. There is mild concentric left ventricular hypertrophy. 14. Overall left ventricular systolic function is normal with, an EF between 60 - 65 %. 15. The right ventricle is mildly enlarged. 16. LA is midly dilated 29-33ml/m2. 17. The right atrium is normal in size. 18. There is mild aortic valve sclerosis. TEMPLATE MAKER: Romelia Yang RDCS
[2016-04-13 10:27] VITALS: BMI 32.4
[2016-04-13 16:11] VITALS: BP 109/55; PULSE 67; TEMP 97.7
[2016-04-13] MEDS: WARFARIN 5 MG TAB PO SCH (17:23)
[2016-04-14] MEDS ORDERED: WARFARIN 5 MG TAB PO SCH (18:00)
--- NOTE | 2016-04-15 07:49 | DS ---
DATE OF ADMISSION: 04/12/2016 DATE OF DISCHARGE: 04/13/2016 FINAL DIAGNOSES: 1. Accelerated hypertension, causing cephalgia, present on admission. 2. Mild persistent asthma, chronic. 3. Hyperlipidemia. 4. Primary osteoarthritis multiple joints, hands, legs and knees, bilateral. 5. Permanent pacemaker. 6. Irritable bowel syndrome. HOSPITAL COURSE: This patient presented with uncontrolled blood pressure causing headache. Blood pressure medication adjusted to which she responded well, feeling much better. A 2-D echocardiogram showed EF of 60% to 65%. Patient was also taking Carafate, which ( ) interfere with absorption of the medication and that could be contributing to her high blood pressure; hence, that was discontinued. Also the patient is taking Mobic and given a history of GI bleed in the past, I did stop the Mobic too as patient is also taking Coumadin. This was explained to the patient in detail on the day of discharge. Patient has had other pain medications for her arthritis. Care was discussed. Patient feeling much better at the time of discharge. On examination, lungs are clear. CARDIOVASCULAR: First and second sounds normal. Discharge planning more than 35 minutes. DISCHARGE MEDICATIONS: 1. Lumigan 0.01% one drop to both eyes q.h.s. 2. Neurontin 600 mg p.o. daily. 3. Imdur 60 mg daily. 4. Singulair 10 mg p.o. q.h.s. 5. Coumadin 5 mg on Tuesday, Tuesday, , and Tuesday. 6. Allopurinol 100 mg p.o. b.i.d. 7. Nitrostat 0.4 sublingual q.5 p.r.n. 8. Coumadin 2.5 mg Tuesday, Tuesday, Tuesday. 9. Pulmicort 0.5 mg inhalation b.i.d. 10. [place] 7.5 one tablet q.6 p.r.n. 11. Omeprazole 20 mg p.o. b.i.d. 12. Norflex 100 mg q.12, ten tablets. 13. Zocor 40 mg p.o. q.h.s. 14. Ultram 50 mg q.8 p.r.n. 15. Hyzaar 50/12 .5 one tablet p.o. b.i.d. 16. Lopressor 25 p.o. t.i.d. Follow up with Dr. Cm on 04/20/16. Discharge planning more than 35 minutes.
== END 2016-04-13 17:43 | disposition home or self-care (01) ==
LOC: EC 09:36 → 4MS4W 13:04
PROVIDERS: ADMIT Hospitalist; ATTEND Hospitalist
DX: I10 Essential (primary) hypertension (principal); R51 Headache; J45.30 Mild persistent asthma, uncomplicated; E78.5 Hyperlipidemia, unspecified; M15.9 Polyosteoarthritis, unspecified; K58.0 Irritable bowel syndrome with diarrhea; J44.9 Chronic obstructive pulmonary disease, unspecified; M10.9 Gout, unspecified; M81.0 Age-related osteoporosis without current pathological fracture; H40.9 Unspecified glaucoma; Z95.0 Presence of cardiac pacemaker; Z96.651 Presence of right artificial knee joint; Z87.891 Personal history of nicotine dependence; Z79.899 Other long term (current) drug therapy; Z79.01 Long term (current) use of anticoagulants; Z82.49 Family history of ischemic heart disease and other diseases of the circulatory system; Z80.8 Family history of malignant neoplasm of other organs or systems
CPT/HCPCS: 99285; 96374; 96361; 36415; 94640 ×2; 93005; 93306; 80053; 82150; 83690; 84484; 85025; 85610; 85730; 81001; 71020; 74000; 70460; G0378 ×2; J2765; J2405; Q9967

== ENCOUNTER → 2016-05-13 | Outpatient (CLI) | payer MEDICARE ==
--- NOTE | 2016-05-13 16:26 | CT ---
EXAMINATION TYPE: CT cervical spine wo con DATE OF EXAM: 05/13/2016 2:55 PM COMPARISON: NONE HISTORY: Cervical radiculopathy CT DLP: 618 mGycm CONTRAST: Noncontrast CT of the cervical spine is performed in the axial plane at 2 mm thick sections. Reconstructed image s in the coronal, and sagittal plane are reviewed on the computer. No acute fractures are evident. Vertebral body alignment is straightened. There may be a mild anterior listhesis of C7 anterior and T 1 There is loss of disc height C4-5 C5-6. Endplate spurring is present C4-5. Vertebral body heights are preserved. No spinal canal stenosis is evident There is mild left foraminal narrowing C2-C3 secondary to facet hypertrophy at that level. Uncoverteb ral joint hypertrophy is present C4-C5 mild bilateral foraminal narrowing. Uncovertebral joint hypert rophy is present C5-6 without significant foraminal narrowing. Left C6-7 uncovertebral joint hypertro phy is present. IMPRESSIONS: 1. Degenerative disc changes greatest at C5-6 C6-7. 2. Grade 1 spondylolisthesis C7 on T1. 3. Mild foraminal narrowing within the mid cervical spine discussed above.
== END | disposition home or self-care (01) ==
LOC: RADCTMAIN 14:32
PROVIDERS: ATTEND Anesthesiology Pain Medicine
DX: M99.71 Connective tissue and disc stenosis of intervertebral foramina of cervical region (principal); M43.13 Spondylolisthesis, cervicothoracic region; M50.122 Cervical disc disorder at C5-C6 level with radiculopathy
CPT/HCPCS: 72125

== ENCOUNTER → 2016-06-21 | Outpatient (CLI) | payer MEDICARE ==
--- NOTE | 2016-06-21 10:34 | MM ---
Reason for exam: follow-up at short interval from prior study. Last mammogram was performed 1 year ago. History: Patient is postmenopausal. Physical Findings: Nurse did not find any significant physical abnormalities on exam. MG 3D Diag Mammo W/Cad STEPHANIE Bilateral CC and MLO view(s) were taken. Prior study comparison: June 12, 2015, bilateral MG 3d diag mammo w/cad STEPHANIE. December 31, 2010, mammogram, performed at [facility]. There are scattered fibroglandular densities. Finding: There are typically benign vascular, round calcifications in both breasts. There is no discrete abnormality. Left axillary pacemaker. These results were verbally communicated with the patient and result sheet given to the patient on 06/21/16. ASSESSMENT: Benign, BI-RAD 2 RECOMMENDATION: Routine screening mammogram of both breasts in 1 year.
--- NOTE | 2016-06-21 10:35 | USB ---
Reason for exam: follow-up at short interval from prior study. History: Patient is postmenopausal. US Breast LT Left breast ultrasound includes all four quadrants, the retroareolar region and axilla. Finding demonstrates no cystic or solid lesion seen. These results were verbally communicated with the patient and result sheet given to the patient on 06/21/16. ASSESSMENT: Negative, BI-RAD 1 RECOMMENDATION: Routine screening mammogram of both breasts in 1 year.
== END | disposition home or self-care (01) ==
LOC: RADMAMWWP 08:38
PROVIDERS: ATTEND Family Medicine
DX: N64.9 Disorder of breast, unspecified (principal)
CPT/HCPCS: 76641; G0204; G0279

== ENCOUNTER → 2017-01-10 | Outpatient (CLI) | payer MEDICARE ==
[~2017-01-10] MED LIST: DENOSUMAB 60 MG/ML 1 ML SYRINGE SQ ONE
[2017-01-10 10:24] VITALS: BP 150/75; PULSE 64; RESP 16; TEMP 98
== END | disposition home or self-care (01) ==
LOC: PROCWHC3 10:10
PROVIDERS: ATTEND Family Medicine
DX: M81.0 Age-related osteoporosis without current pathological fracture (principal)
CPT/HCPCS: 96372; J0897

== ENCOUNTER → 2017-04-28 | Outpatient (CLI) | payer MEDICARE ==
--- NOTE | 2017-04-28 16:40 | XR ---
EXAMINATION TYPE: XR hand complete LT DATE OF EXAM: 04/28/2017 CLINICAL HISTORY: pain TECHNIQUE: Frontal, lateral and oblique images of the left hand are obtained. COMPARISON: None. FINDINGS: There is no acute fracture/dislocation evident. The joint spaces appear moderately narrowe d. The overlying soft tissue appears unremarkable. IMPRESSION: There is no acute fracture or dislocation. ICD 10 NO FRACTURE, INITIAL EVALUATION
== END | disposition home or self-care (01) ==
LOC: RADXRMAIN 15:12
PROVIDERS: ATTEND Family Medicine
DX: M13.842 Other specified arthritis, left hand (principal)

== ENCOUNTER → 2017-07-01 | Outpatient (CLI) | payer MEDICARE ==
--- NOTE | 2017-07-01 12:54 | XR ---
EXAMINATION TYPE: XR knee complete LT DATE OF EXAM: 07/01/2017 CLINICAL HISTORY: pain TECHNIQUE: Three views of the left knee are obtained. COMPARISON: None. FINDINGS: There is no acute fracture/dislocation. The tri-compartment joint spaces appear moderatel y narrowed. Chondrocalcinosis of the menisci. Lateral subluxation of the patella. Severe narrowing pa tellofemoral joint space. Suprapatellar joint effusion with multiple small loose bodies suggested. IMPRESSION: There is no acute fracture or dislocation ICD 10 NO FRACTURE, INITIAL EVALUATION
== END | disposition home or self-care (01) ==
LOC: RADXRMAIN 12:00
PROVIDERS: ATTEND Physician Assistant
DX: M25.562 Pain in left knee (principal)

== ENCOUNTER → 2017-07-12 | Outpatient (CLI) | payer MEDICARE ==
[~2017-07-12] MED LIST changes: +DENOSUMAB 60 MG/ML 1 ML SYRINGE SQ NR; -DENOSUMAB 60 MG/ML 1 ML SYRINGE SQ ONE
[2017-07-12 11:16] VITALS: BP 141/69; PULSE 66; RESP 18; TEMP 98.5
== END | disposition home or self-care (01) ==
LOC: PROCWHC3 10:22
PROVIDERS: ATTEND Family Medicine
DX: M81.0 Age-related osteoporosis without current pathological fracture (principal)
CPT/HCPCS: 96372; J0897

== ENCOUNTER → 2017-07-29 | Outpatient (CLI) | payer MEDICARE ==
--- NOTE | 2017-07-29 11:17 | XR ---
EXAMINATION TYPE: XR bone survey complete DATE OF EXAM: 07/29/2017 COMPARISON: CT brain April 11, 2016. CT cervical spine May 13, 2016. Chest x-ray April 12, 2016 . HISTORY: Deep vein thrombosis of upper extremity, monoclonal gammopathy per order. Bony calvarium : 2 views of the bony calvarium demonstrate diffuse demineralization without discrete suspicious focal lytic lesion. Spine: Two views of the cervical, thoracic and lumbar spines are submitted. There is moderate to adv anced spurring and disc space narrowing C4-C5 through C6-C7 levels. Straightening alignment is presen t. Thoracic spine shows S-shaped scoliotic curvature upper to mid levels with moderate to severe spur ring lower thoracic levels. Lumbar spine shows moderate to advanced multilevel spurring and disc spac e narrowing. Chest x-ray: There is dual lead pacemaker in normal size heart. There is eventration of right hemidia phragm. There is chronic parenchymal change. No suspicious focal lytic or expansile lesion is clearly seen in the ribs. PELVIS: Single view of the pelvis demonstrates moderate to advanced joint space loss in both hips. Th ere is overlying vascular calcification. Demineralization is present. No suspicious focal lytic lesio ns clearly seen. Some lucency from overlying bowel gas makes evaluation suboptimal. UPPER EXTREMITIES: Two views of the bilateral upper extremities show demineralization without suspici ous focal lytic lesion. LOWER EXTREMITIES: 2 views of the lower extremities show advanced degenerative change left knee joint . There is metallic hardware right knee joint. Vascular calcification is present. Demineralization is seen. No discrete lucency is present. IMPRESSION: No definitive suspicious focal lytic lesion identified.
== END | disposition home or self-care (01) ==
LOC: RADXRMAIN 10:04
PROVIDERS: ATTEND Internal Medicine Hematology & Oncology
DX: I82.729 Chronic embolism and thrombosis of deep veins of unspecified upper extremity (principal); D47.2 Monoclonal gammopathy; M10.9 Gout, unspecified; J44.1 Chronic obstructive pulmonary disease with (acute) exacerbation
CPT/HCPCS: 77075

== ENCOUNTER 2017-08-30 11:22 | Inpatient (IN) | payer MEDICARE ==
[2017-08-30 13:06] VITALS: BMI 33.0
[2017-08-30] MEDS ORDERED: NALOXONE 0.4 MG/ML 1 ML VIAL IV PRN (16:22)
[2017-08-30] MEDS ORDERED: CALCIUM CARBONATE 500 MG CHEWABLE PO PRN (16:22)
[2017-08-30] MEDS ORDERED: MAGNESIUM HYDROXIDE 2,400 MG/10 ML CUP PO PRN (16:22)
[2017-08-30] MEDS ORDERED: ALPRAZolam 0.25 MG TAB PO PRN (16:22)
[2017-08-30] MEDS ORDERED: LACTULOSE 20 GM/30 ML CUP PO PRN (16:22)
[2017-08-30] MEDS ORDERED: ACETAMINOPHEN TAB 325 MG TAB PO PRN (16:22)
[2017-08-30] MEDS ORDERED: ONDANSETRON 4 MG/2 ML VIAL IVP PRN (16:22)
[2017-08-30] MEDS ORDERED: MELATONIN 3 MG TABLET PO PRN (16:22)
[2017-08-30 17:08] LABS: Basophils % (A) 0 %; Eosinophils # (A) 0.2 k/uL (0-0.7); Eosinophils % (A) 3 %; HGB 11.8 gm/dL (11.4-16.0); Lymphocytes # (A) 1.2 k/uL (1.0-4.8); Lymphocytes % (A) 16 %; MCH 31.3 pg (25.0-35.0); MCHC 32.8 g/dL (31.0-37.0); MCV 95.6 fL (80.0-100.0); Mean Platelet Volume 7.1; Monocytes # (A) 0.5 k/uL (0-1.0); Monocytes % (A) 7 %; Neutrophils # (A) 5.5 k/uL (1.3-7.7); Neutrophils % (A) 73 %; Platelet Count 290 k/uL (150-450); RBC 3.76 m/uL (3.80-5.40); RDW 14.6 % (11.5-15.5); WBC 7.5 k/uL (3.8-10.6)
[2017-08-30 17:20] LABS: INR 2.9 (<1.2); Prothrombin Time 25.7 sec (9.0-12.0)
[2017-08-30 17:25] LABS: Calcium 9.3 mg/dL (8.4-10.2); Total Bilirubin 0.2 mg/dL (0.2-1.3); Total Protein 5.4 g/dL (6.3-8.2)
[2017-08-30] MEDS: LACTATED RINGERS 1,000 ML IV SCH (17:25)
[2017-08-30] MEDS: PANTOPRAZOLE 40 MG TABLET PO SCH (17:49)
[2017-08-30] MEDS: WARFARIN 5 MG TAB PO SCH (17:49)
[2017-08-30] MEDS: METOPROLOL TARTRATE 25 MG TAB PO SCH ×2 (17:49→21:46)
[2017-08-30] MEDS: BUDESONIDE 0.5 MG/2 ML NEBU INHALATION SCH (19:40)
--- NOTE | 2017-08-30 21:07 | HP ---
HISTORY AND PHYSICAL DATE OF ADMISSION: August 30, 2017. DATE OF SERVICE: August 30, 2017. PRESENTING COMPLAINT: Positive blood culture in the left knee joint. HISTORY OF PRESENTING COMPLAINT: This 82-year-old patient of Dr. mC whose chronic stable medical conditions include hypertension, mild intermittent asthma, hyperlipidemia, irritable bowel syndrome. The patient also got osteoarthritis. For 4 weeks, having increasing pain in the left knee. The patient was sent by Dr. Cm down to non destructive evaluation technician Dr. Potter. Knee was tapped twice. Dr. Cm's PA Jean Carlos called me today that the cultures come back showing E coli and patient being admitted for septic arthritis. The patient denies any fever, chills, has had pain in the left knee and skin was not very red she describes. 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 Denies any chills. REVIEW OF SYSTEMS: Constitutional: No fever, chills. HEENT none. Respiratory none. Cardiovascular none. Gastrointestinal none. Genitourinary none. Musculoskeletal: Arthritic pain in joints especially the left knee. Dermatological none. Hematological none. Lymphatics none. Psychiatry none. Neurological none. 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 PAST SURGICAL HISTORY: Adenoidectomy, appendectomy, cholecystectomy, hernia repair, tubal ligation, throat nodule removed, mole of the left eyelid, bilateral cataract removed, right knee replacement x2, hiatal hernia repair, I and D of left inguinal abscess. SOCIAL HISTORY: Walks with a cane and a walker. The patient smoked from teens up to 1989. FAMILY HISTORY: Father pulmonary fibrosis. Sister had melanoma. Three stepsiblings with cancer. HOME MEDICATIONS: 1. Ultram 100 mg q.8h p.r.n. 2. Coumadin 2.5 mg Tuesday, Tuesday and 5 mg on Tuesday, Tuesday, Tuesday, , Tuesday. 3. Carafate 1 g p.o. daily. 4. Zocor 40 mg q.h.s. 5. Omeprazole 20 mg b.i.d. 6. Xolair 150 mg subcu Q 14 days. 7. Nitrostat 0.4 sublingual q.5 p.r.n. 8. Multivitamin 1 tablet p.o. daily. 9. Singulair 10 mg q.h.s. 10.Lopressor 25 p.o. t.i.d. 11.Hyzaar 50/12.5 one tab p.o. b.i.d. 12.Imdur 60 mg p.o. daily. 13.Neurontin 600 mg p.o. daily. 14.Prolia 60 mg subcu q 180 days. 15.Vitamin D3 1000 units p.o. daily. 16.Calcium 600 mg p.o. daily. 17.Pulmicort 0.5 inhalation b.i.d. 18.Lumigan 0.01% 1 drop to both eyes q.h.s. 19.Allopurinol 100 mg b.i.d. ALLERGIES: TO LUNA INHIBITOR, CODEINE, TAPE. PHYSICAL EXAMINATION: Temperature 97.7, pulse 72, respiration 16, blood pressure 130/76, pulse ox 96% on room air. GENERAL APPEARANCE: Average build, lying in bed, comfortable. BMI 33.3. EYES: Pupils equal. Conjunctivae normal. HEENT: External appearance of nose and ears normal. Oral cavity normal. NECK: JVD not raised. Mass not palpable. RESPIRATORY: Effort normal. LUNGS: Fair entry. CARDIOVASCULAR: 1st and second sounds normal. No edema. ABDOMEN: Soft, nontender. Liver and spleen not palpable. LYMPHATICS: No lymph nodes palpable in the neck, axillae or groin. PSYCHIATRY: Alert and oriented x3. Mood and affect normal. NEUROLOGICAL: Pupils equal. Cranial nerves grossly intact. Power and sensation grossly intact. MUSCULOSKELETAL: Bony prominences on the left knee, minimal increased local temperature. Minimal tenderness. Some limitation of movement of the left knee joint. Fullness in the back of the knee. INVESTIGATIONS: White count 7.5, hemoglobin 11.8, platelets 290. No left shift. INR 2.9, potassium 4, BUN 24, creatinine 0.90. ASSESSMENT: 1. Questionable septic arthritis. This is a patient with significant osteoarthritis of the left knee joint, has been tapped twice. The patient denies any fever, chills, but she was admitted for the cultures coming back positive for E coli. Though any organism is possible, gram-negative organism felt to be less likely in the clinical setting. Also having my doubts if this is really septic arthritis, but still possible and we cannot ignore positive culture. I will talk to Dr. Potter and find more of the clinical scenario around the presentation. 2. Essential hypertension. 3. Mild intermittent asthma. 4. Hyperlipidemia. 5. Primary osteoarthritis. 6. Permanent pacemaker. 7. History of deep vein thrombosis, left upper extremity with a clotting disorder for which patient is chronically on Coumadin. 8. Coumadin monitoring. 9. Irritable bowel syndrome. PLAN: Home medications are resumed. We will also order a [facility] Infectious Disease consultation. Care was discussed with the patient. Copy to Dr. Cm. MMJESSIL / RICHARDN: [id number] /
--- NOTE | 2017-08-30 21:13 | HP ---
HISTORY AND PHYSICAL ADDENDUM: DATE OF SERVICE: August 30, [address] Potter over the phone. She had tapped the knee on 08/08/17 and steroid injection was given. Subsequently the patient had presented to her again on August 24, 2017. The knee was rather inflamed, red, very painful, tender. At that time, labs were again done and the cell count came back now 26,000 up from 2600 from the previous visit. Crystals were negative. The cultures did come back from E coli. Also the fluid was rather cloudy. These labs had been done at [facility]. I am requesting these labs from there. MMJESSIL / IJN: [id number] /
[2017-08-30] MEDS: ATORVASTATIN 20 MG TAB PO SCH (21:45)
[2017-08-30] MEDS: MONTELUKAST 10 MG TAB PO SCH (21:45)
[2017-08-30] MEDS: ALLOPURINOL 100 MG TAB PO SCH (21:46)
[2017-08-30] MEDS: LOSARTAN-HCTZ 50-12.5 MG 1 EACH TAB PO SCH (21:46)
[2017-08-30] MEDS: LATANOPROST 0.005% OPHTH DROPS 2.5 ML BTL BOTH EYES SCH (22:14)
[2017-08-31] MEDS: LACTATED RINGERS 1,000 ML IV SCH ×2 (06:09→18:14)
[2017-08-31] MEDS: PANTOPRAZOLE 40 MG TABLET PO SCH (07:15)
[2017-08-31] MEDS: traMADol 50 MG TAB PO PRN ×2 (07:15→21:35)
[2017-08-31] MEDS: BUDESONIDE 0.5 MG/2 ML NEBU INHALATION SCH ×2 (07:34→19:31)
[2017-08-31] MEDS: LOSARTAN-HCTZ 50-12.5 MG 1 EACH TAB PO SCH ×2 (08:10→21:36)
[2017-08-31] MEDS: ALLOPURINOL 100 MG TAB PO SCH ×2 (08:10→21:36)
[2017-08-31] MEDS: GABAPENTIN 300 MG CAP PO SCH (08:10)
[2017-08-31] MEDS: ISOSORBIDE MONONITRATE ER 60 MG TAB.ER.24H PO SCH (08:10)
[2017-08-31] MEDS: METOPROLOL TARTRATE 25 MG TAB PO SCH ×3 (08:10→21:36)
[2017-08-31] MEDS: SUCRALFATE 1 GM TAB PO SCH (08:11)
[2017-08-31 08:44] LABS: INR 2.5 (<1.2); Prothrombin Time 22.3 sec (9.0-12.0)
--- NOTE | 2017-08-31 09:11 | XR ---
EXAMINATION TYPE: XR knee complete LT DATE OF EXAM: 08/31/2017 COMPARISON: 07/01/2017 HISTORY: Pain TECHNIQUE: 3 views left knee FINDINGS: There is joint space narrowing. Small calcifications are along the medial aspect of the humberto nt space. Some calcification may be within the lateral meniscus. The patella also is present on the o blique view. This is more normal appearance on the lateral view. No joint effusion is evident. No acute fractures are identified. IMPRESSION: 1. Moderate degenerative joint changes. 2. No acute osseous abnormality. 3. Exam is stable from comparison.
--- NOTE | 2017-08-31 09:22 | P.CONS ---
History of Present Illness - Reason for Consult Consult date: 08/31/17 Septic knee - History of Present Illness This is an 82-year-old female patient who gives history that for the past 6 weeks she has had what started out as edema to the lateral upper left knee. She went to Dr. Gibson and saw the PA or nurse practitioner and x-rays were done. She was ordered for physical therapy and at that time she had good range of motion. She continued to have problems and then was sent to Dr. Potter who she is seen in the past to rule out rheumatoid arthritis. Patient has not been diagnosed with rheumatoid arthritis but does have significant arthritis in her hands and wrist. Dr. Potter drained her left knee 2 weeks ago and she had some improvement and then it was done again last Tuesday which she did have significant improvement after that. She states she had full range of motion and it was not painful but the day before she could actually feel the knee filling up with fluid and it was so painful that she could not put any weight on it. She denies having any fever or chills. She does state a little off and not quite herself. She was then called by Dr. Potter that she has an infection in her left knee and her PCP was contacted and arrangements were made for her to be admitted. On her chart, there is an anaerobic culture that is showing no growth at 2 days. No aerobic culture is currently on her chart. Review of Systems All systems: negative Constitutional: Reports malaise, Denies anorexia, Denies chills, Denies fatigue , Denies fever, Denies lethargy, Denies poor appetite, Denies weakness, Denies weight loss Eyes: denies blurred vision, denies pain Ears, nose, mouth and throat: Denies dental pain, Denies headache, Denies mouth pain, Denies sore throat Cardiovascular: Denies chest pain, Denies decreased exercise tolerance, Denies dyspnea on exertion, Denies edema, Denies leg edema, Denies lightheadedness, Denies shortness of breath, Denies syncope Respiratory: Denies cough Gastrointestinal: Denies abdominal pain, Denies diarrhea, Denies nausea, Denies vomiting Genitourinary: Denies dysuria, Denies hematuria, Denies urgency Musculoskeletal: Denies myalgias Musculoskeletal: right: knee pain, knee stiffness, knee swelling Integumentary: Denies pruritus, Denies rash, Denies wounds Neurological: Denies numbness, Denies weakness Psychiatric: Denies anxiety, Denies depression Endocrine: Denies fatigue, Denies weight change Past Medical History Past Medical History: Asthma, COPD, Hyperlipidemia, Hypertension, Osteoarthritis (OA) Additional Past Medical History / Comment(s): Hx. gout, osteoporosis, arthritis , DVT L upper arm, "clots fast" pt states per Dr. Beatty, dermatitis, bilateral glaucoma, bradycardia- pacemaker, degenerative disc disease, cervical and back pain, History of Any Multi-Drug Resistant Organisms: None Reported Past Surgical History: Adenoidectomy, Appendectomy, Cholecystectomy, Hernia Repair, Orthopedic Surgery, Pacemaker, Tonsillectomy, Tubal Ligation Additional Past Surgical History / Comment(s): Hx throat nodule removed, mole left eyelid, D&C, bilat cataracts removed . RIGHT KNEE REPLACEMENT X 2. , hiatal hernia repair, I&D L inguinal abscess, aspiration left knee 2 in August 2017. Past Anesthesia/Blood Transfusion Reactions: No Reported Reaction, Motion Sickness Type of Cardiac Device: Permanent Pacemaker Device Placement Date:: October 2012 Past Psychological History: No Psychological Hx Reported Additional Psychological History / Comment(s): Pt resides alone. She has a cane and a walker. She ambulates usually with the walker. She drives. Smoking Status: Former smoker Past Alcohol Use History: None Reported Additional Past Alcohol Use History / Comment(s): Pt states she started smoking in her teens and quit in 1989 Past Drug Use History: None Reported - Past Family History Father Additional Family Medical History / Comment(s): Father pulmonary fibrosis, Sister-melanoma 3 step siblings with cancer, dr beatty told patient that she just clots fast but her siblings should be tested for MUTAHON-MTHFR gene Mother Family Medical History: Cancer Medications and Allergies Home Medications Medication Instructions Recorded Confirmed Type Bimatoprost [Lumigan .01% Ophth 1 drop BOTH EYES HS 11/07/13 08/30/17 History Soln] Gabapentin [Neurontin] 600 mg PO DAILY 11/07/13 08/30/17 History Isosorbide Mononitrate [Imdur] 60 mg PO QAM 11/07/13 08/30/17 History Montelukast [Singulair] 10 mg PO HS 11/07/13 08/30/17 History Warfarin [Coumadin] 5 mg PO SUTUWETHSA 11/07/13 08/30/17 History Allopurinol [Zyloprim] 100 mg PO BID 07/09/14 08/30/17 History Nitroglycerin Sl Tabs [Nitrostat] 0.4 mg SUBLINGUAL Q5M PRN 07/09/14 08/30/17 History Warfarin [Coumadin] 2.5 mg PO MOFR 11/24/14 08/30/17 History Budesonide [Pulmicort] 0.5 mg INHALATION RT-BID 03/29/16 08/30/17 History Omeprazole 20 mg PO BID 03/29/16 08/30/17 History Simvastatin [Zocor] 40 mg PO HS 03/29/16 08/30/17 History traMADol HCL [Ultram] 100 mg PO Q8H PRN 03/29/16 08/30/17 History Metoprolol Tartrate [Lopressor] 25 mg PO TID #0 04/13/16 08/30/17 Rx Calcium Carbonate [Calcium] 600 mg PO DAILY 08/30/17 08/30/17 History Cholecalciferol [Vitamin D3] 1,000 unit PO DAILY 08/30/17 08/30/17 History Denosumab [Prolia] 60 mg SQ Q180D 08/30/17 08/30/17 History Losartan-Hctz 50-12.5 mg [Hyzaar 1 tab PO BID 08/30/17 08/30/17 History 50-12.5] Multivitamins, Thera [Multivitamin 1 tab PO DAILY 08/30/17 08/30/17 History (formulary)] Omalizumab [Xolair] 150 mg SQ Q14D 08/30/17 08/30/17 History Sucralfate [Carafate] 1 gm PO DAILY 08/30/17 08/30/17 History Allergies Allergy/AdvReac Type Severity Reaction Status Date / Time LUNA Inhibitors AdvReac Cough Verified 08/30/17 13:04 codeine AdvReac Nausea Verified 08/30/17 13:04 tape Allergy Unknown Uncoded 07/12/17 11:01 Physical Exam Vitals: Vital Signs Temp Pulse Pulse Resp BP Pulse Ox 08/31/17 07:43 70 08/31/17 07:35 70 08/31/17 07:20 63 16 08/31/17 05:00 97.8 F 63 16 128/62 94 L 08/30/17 21:30 97.5 F L 64 17 128/71 97 08/30/17 19:51 68 08/30/17 19:40 64 08/30/17 15:15 70 16 08/30/17 12:18 97.7 F 70 16 138/76 96 Intake and Output 08/30/17 08/31/17 08/31/17 22:59 06:59 14:59 Intake Total 225 600 Balance 225 600 Intake: Intake, IV Titration 225 600 Amount Lactated Ringers 1,000 ml 225 600 @ 75 mls/hr IV .[id number] [facility] Rx#:[id number] Other: Voiding Method Toilet Toilet Toilet # Voids 1 1 Gen: This is an 82-year-old female. She is found sitting on the edge of the bed and appears to be comfortable and in no acute distress. HEENT: Head is atraumatic, normocephalic. Pupils equal, round. Sclerae is anicteric. Conjunctiva pink. Mucous members of the mouth are moist. No thrush noted. NECK: Supple. No JVD. No lymphadenopathy. No thyromegaly. LUNGS: Clear to auscultation. No wheezes or rhonchi. No intercostal retractions. HEART: Regular rate and rhythm. No murmur. ABDOMEN: Soft. Bowel sounds are present. No masses. No tenderness. EXTREMITIES: No pedal edema. No calf tenderness. Patient has noted to have surgical scar to the right knee. She has mild edema to the lateral upper area as well as the same on the left. Full range of motion to the left knee. No warmth to touch. No wounds. No erythema. Dorsalis pedis +2 bilaterally. NEUROLOGICAL: Patient is awake, alert and oriented x3. Cranial nerves 2 through 12 are grossly intact. Results Results: Laboratory Results WBC 7.5 k/uL (3.8-10.6) 08/30/17 16:43 RBC 3.76 m/uL (3.80-5.40) L 08/30/17 16:43 Hgb 11.8 gm/dL (11.4-16.0) 08/30/17 16:43 Hct 36.0 % (34.0-46.0) 08/30/17 16:43 MCV 95.6 fL (80.0-100.0) 08/30/17 16:43 MCH 31.3 pg (25.0-35.0) 08/30/17 16:43 MCHC 32.8 g/dL (31.0-37.0) 08/30/17 16:43 RDW 14.6 % (11.5-15.5) 08/30/17 16:43 Plt Count 290 k/uL (150-450) 08/30/17 16:43 Neutrophils % 73 % 08/30/17 16:43 Lymphocytes % 16 % 08/30/17 16:43 Monocytes % 7 % 08/30/17 16:43 Eosinophils % 3 % 08/30/17 16:43 Basophils % 0 % 08/30/17 16:43 Neutrophils # 5.5 k/uL (1.3-7.7) 08/30/17 16:43 Lymphocytes # 1.2 k/uL (1.0-4.8) 08/30/17 16:43 Monocytes # 0.5 k/uL (0-1.0) 08/30/17 16:43 Eosinophils # 0.2 k/uL (0-0.7) 08/30/17 16:43 Basophils # 0.0 k/uL (0-0.2) 08/30/17 16:43 ESR 50 mm/hr (0-20) H 08/30/17 16:43 PT 22.3 sec (9.0-12.0) H 08/31/17 08:18 INR 2.5 (<1.2) H 08/31/17 08:18 Sodium 140 mmol/L (137-145) 08/30/17 16:43 Potassium 4.0 mmol/L (3.5-5.1) 08/30/17 16:43 Chloride 105 mmol/L (98-107) 08/30/17 16:43 Carbon Dioxide 26 mmol/L (22-30) 08/30/17 16:43 Anion Gap 9 mmol/L 08/30/17 16:43 BUN 34 mg/dL (7-17) H 08/30/17 16:43 Creatinine 0.90 mg/dL (0.52-1.04) 08/30/17 16:43 Est GFR (CKD-EPI)AfAm 70 (>60 ml/min/1.73 sqM) 08/30/17 16:43 Est GFR (CKD-EPI)NonAf 61 (>60 ml/min/1.73 sqM) 08/30/17 16:43 Glucose 93 mg/dL (74-99) 08/30/17 16:43 Calcium 9.3 mg/dL (8.4-10.2) 08/30/17 16:43 Total Bilirubin 0.2 mg/dL (0.2-1.3) 08/30/17 16:43 AST 28 U/L (14-36) 08/30/17 16:43 ALT 51 U/L (9-52) 08/30/17 16:43 Alkaline Phosphatase 82 U/L (38-126) 08/30/17 16:43 Total Protein 5.4 g/dL (6.3-8.2) L 08/30/17 16:43 Albumin 3.0 g/dL (3.5-5.0) L 08/30/17 16:43 CBC & Chem 7: 08/30/17 16:43 08/30/17 16:43 Labs: Abnormal Lab Results - Last 24 Hours (Table) 08/30/17 08/30/17 08/30/17 Range/Units 16:43 16:43 16:43 RBC 3.76 L (3.80-5.40) m/uL ESR (0-20) mm/hr PT 25.7 H (9.0-12.0) sec INR 2.9 H (<1.2) BUN 34 H (7-17) mg/dL Total Protein 5.4 L (6.3-8.2) g/dL Albumin 3.0 L (3.5-5.0) g/dL 08/30/17 08/31/17 Range/Units 16:43 08:18 RBC (3.80-5.40) m/uL ESR 50 H (0-20) mm/hr PT 22.3 H (9.0-12.0) sec INR 2.5 H (<1.2) BUN (7-17) mg/dL Total Protein (6.3-8.2) g/dL Albumin (3.5-5.0) g/dL Assessment and Plan Plan: This is an 82-year-old female patient who has had problems with swelling to the left knee and has had aspiration done 2. She has been sent into the hospital as a reported E. coli in aspirate culture with concern for septic left knee. On her chart is an anaerobic culture that are showing no growth at 2 days. We will ask nursing staff to obtain aerobic culture from Dr. Potter's office. Antibiotics will be addressed. Consult is in place with orthopedics who is also evaluated the patient. Continue supportive care. Further recommendations as patient progresses. The above dictated assessment and findings were discussed with Dr. Patrick. The impression and plan of care have been directed as dictated. Alta Elder nurse practitioner acting as scribe for Dr. Patrick.
--- NOTE | 2017-08-31 10:56 | P.CNOR ---
History of Present Illness - HPI Consult date: 08/31/17 History of present illness: This is an 82-year-old female who is admitted for possible infection of the left knee. Patient states that she had her left knee aspirated and injected with cortisone by Dr. Potter. Patient states that the cultures taken from her left knee aspiration were positive. Patient states that she sees Dr. Cm as her primary care physician who admitted the patient for further evaluation of possible left knee infection. Patient states that the knee has been painful. Patient denies any swelling, erythema, fever or chills. Patient denies any injury of the left knee. Review of Systems See HPI. Past Medical History Past Medical History: Asthma, COPD, Hyperlipidemia, Hypertension, Osteoarthritis (OA) Additional Past Medical History / Comment(s): Hx. gout, osteoporosis, arthritis , DVT L upper arm, "clots fast" pt states per Dr. Beatty, dermatitis, bilateral glaucoma, bradycardia- pacemaker, degenerative disc disease, cervical and back pain, History of Any Multi-Drug Resistant Organisms: None Reported Past Surgical History: Adenoidectomy, Appendectomy, Cholecystectomy, Hernia Repair, Orthopedic Surgery, Pacemaker, Tonsillectomy, Tubal Ligation Additional Past Surgical History / Comment(s): Hx throat nodule removed, mole left eyelid, D&C, bilat cataracts removed . RIGHT KNEE REPLACEMENT X 2. , hiatal hernia repair, I&D L inguinal abscess. Past Anesthesia/Blood Transfusion Reactions: No Reported Reaction, Motion Sickness Type of Cardiac Device: Permanent Pacemaker Device Placement Date:: October 2012 Past Psychological History: No Psychological Hx Reported Additional Psychological History / Comment(s): Pt resides alone. She has a cane and a walker. She ambulates usually with the walker. She drives. Smoking Status: Former smoker Past Alcohol Use History: None Reported Additional Past Alcohol Use History / Comment(s): Pt states she started smoking in her teens and quit in 1989 Past Drug Use History: None Reported - Past Family History Father Additional Family Medical History / Comment(s): Father pulmonary fibrosis, Sister-melanoma 3 step siblings with cancer, dr beatty told patient that she just clots fast but her siblings should be tested for MUTAHON-MTHFR gene Mother Family Medical History: Cancer Medications and Allergies Home Medications Medication Instructions Recorded Confirmed Type Bimatoprost [Lumigan .01% Ophth 1 drop BOTH EYES HS 11/07/13 08/30/17 History Soln] Gabapentin [Neurontin] 600 mg PO DAILY 11/07/13 08/30/17 History Isosorbide Mononitrate [Imdur] 60 mg PO QAM 11/07/13 08/30/17 History Montelukast [Singulair] 10 mg PO HS 11/07/13 08/30/17 History Warfarin [Coumadin] 5 mg PO SUTUWETHSA 11/07/13 08/30/17 History Allopurinol [Zyloprim] 100 mg PO BID 07/09/14 08/30/17 History Nitroglycerin Sl Tabs [Nitrostat] 0.4 mg SUBLINGUAL Q5M PRN 07/09/14 08/30/17 History Warfarin [Coumadin] 2.5 mg PO MOFR 11/24/14 08/30/17 History Budesonide [Pulmicort] 0.5 mg INHALATION RT-BID 03/29/16 08/30/17 History Omeprazole 20 mg PO BID 03/29/16 08/30/17 History Simvastatin [Zocor] 40 mg PO HS 03/29/16 08/30/17 History traMADol HCL [Ultram] 100 mg PO Q8H PRN 03/29/16 08/30/17 History Metoprolol Tartrate [Lopressor] 25 mg PO TID #0 04/13/16 08/30/17 Rx Calcium Carbonate [Calcium] 600 mg PO DAILY 08/30/17 08/30/17 History Cholecalciferol [Vitamin D3] 1,000 unit PO DAILY 08/30/17 08/30/17 History Denosumab [Prolia] 60 mg SQ Q180D 08/30/17 08/30/17 History Losartan-Hctz 50-12.5 mg [Hyzaar 1 tab PO BID 08/30/17 08/30/17 History 50-12.5] Multivitamins, Thera [Multivitamin 1 tab PO DAILY 08/30/17 08/30/17 History (formulary)] Omalizumab [Xolair] 150 mg SQ Q14D 08/30/17 08/30/17 History Sucralfate [Carafate] 1 gm PO DAILY 08/30/17 08/30/17 History Allergies Allergy/AdvReac Type Severity Reaction Status Date / Time LUNA Inhibitors AdvReac Cough Verified 08/30/17 13:04 codeine AdvReac Nausea Verified 08/30/17 13:04 tape Allergy Unknown Uncoded 07/12/17 11:01 Physical Examination On exam patient is alert and oriented 3, lying in bed in no acute distress. On inspection of the left knee there is no erythema, effusion or ecchymosis. There is no tenderness to palpation. Calf is soft and nontender to palpation. Patient has full foot and ankle motion of the left lower extremity without pain or difficulty. Sensation intact. Neurovascular status and circulatory status are intact. Results X-rays of the left knee show moderate arthritic changes. No fracture or dislocation. - Labs Labs: Abnormal Lab Results - Last 24 Hours (Table) 08/30/17 08/30/17 08/30/17 Range/Units 16:43 16:43 16:43 RBC 3.76 L (3.80-5.40) m/uL ESR (0-20) mm/hr PT 25.7 H (9.0-12.0) sec INR 2.9 H (<1.2) BUN 34 H (7-17) mg/dL Total Protein 5.4 L (6.3-8.2) g/dL Albumin 3.0 L (3.5-5.0) g/dL 08/30/17 08/31/17 Range/Units 16:43 08:18 RBC (3.80-5.40) m/uL ESR 50 H (0-20) mm/hr PT 22.3 H (9.0-12.0) sec INR 2.5 H (<1.2) BUN (7-17) mg/dL Total Protein (6.3-8.2) g/dL Albumin (3.5-5.0) g/dL H & H 08/30/17 Range/Units 16:43 Hgb 11.8 (11.4-16.0) gm/dL Hct 36.0 (34.0-46.0) % Coagulation 08/30/17 08/31/17 Range/Units 16:43 08:18 INR 2.9 H 2.5 H (<1.2) Result Diagrams: 08/30/17 16:43 08/30/17 16:43 Assessment and Plan (1) Knee pain, left Current Visit: No Status: Acute Code(s): M25.562 - PAIN IN LEFT KNEE SNOMED Code(s): 35309458 (2) Primary osteoarthritis of left knee Current Visit: Yes Status: Acute Code(s): M17.12 - UNILATERAL PRIMARY OSTEOARTHRITIS, LEFT KNEE SNOMED Code(s): 482699427236210 Plan: 1. X-rays of the left knee show osteoarthritis. 2. Patient is well-appearing, afebrile and has a normal white blood cell count. On exam the left knee is negative for erythema, effusion or significant pain. Positive left knee culture for E. coli is likely contaminant. Low suspicion for septic arthritis. 3. No surgical intervention planned at this time. We'll continue to follow the patient closely.
[2017-08-31] MEDS: MULTIVITAMINS, THERA 1 EACH TAB PO SCH (11:09)
--- NOTE | 2017-08-31 12:59 | P.CONS ---
History of Present Illness - Reason for Consult Consult date: 08/31/17 possible septic arthritis Requesting physician: Ozzy Kitchen - Chief Complaint knee effusion and pain - History of Present Illness Patient is seen today as an inpatient consult. Patient is an 82 year old female with PMH of osteoarthritis, HTN, asthma, HLD, and IBS. Patient has been seen at our office for left knee effusion and osteoarthritis. Patient presented for follow up at our office on 08/08 and was found to have significant effusion of left knee which was aspirated and 52 cc of fluid was drained and a steroid was injected. Appearance of synovial fluid was hazy and cell count revealed WBC of 2,660 and culture was negative at that time. Patient returned on 08/24 for significant pain and was unable to bear any weight on the knee. Knee was significantly swollen and effusion was noted on the lateral part and was very tender to touch and warm as well. Patient was unable to ambulate at the time and needed a wheelchair. Aspiration was performed today and 35 cc of extremely cloudy fluid was obtained and I injected her left knee with steroid. Cell count of synovial fluid revealed WBC of 26,417 which may have been muted due to the steroid injections. Culture revealed 1+ E. Coli and anaerobic culture after 2 days was negative. Based on clinical findings at the time of aspiration there was high suspicion of septic arthritis. When E. coli cultures returned on Tuesday patient was notified of results and our office contacted patient's PCP to facilitate admission and orthopedic consult. Today patient states she feels fine and patient was prescribed [place] at our office for pain relief and was also prescribed tramadol for pain control by Dr. Cm. Patient in general feels well with no pain and has not noticed any swelling of the knee. Review of Systems Constitutional: Reports as per HPI Past Medical History Past Medical History: Asthma, COPD, Hyperlipidemia, Hypertension, Osteoarthritis (OA) Additional Past Medical History / Comment(s): Hx. gout, osteoporosis, arthritis , DVT L upper arm, "clots fast" pt states per Dr. Beatty, dermatitis, bilateral glaucoma, bradycardia- pacemaker, degenerative disc disease, cervical and back pain, History of Any Multi-Drug Resistant Organisms: None Reported Past Surgical History: Adenoidectomy, Appendectomy, Cholecystectomy, Hernia Repair, Orthopedic Surgery, Pacemaker, Tonsillectomy, Tubal Ligation Additional Past Surgical History / Comment(s): Hx throat nodule removed, mole left eyelid, D&C, bilat cataracts removed . RIGHT KNEE REPLACEMENT X 2. , hiatal hernia repair, I&D L inguinal abscess. Past Anesthesia/Blood Transfusion Reactions: No Reported Reaction, Motion Sickness Type of Cardiac Device: Permanent Pacemaker Device Placement Date:: October 2012 Past Psychological History: No Psychological Hx Reported Additional Psychological History / Comment(s): Pt resides alone. She has a cane and a walker. She ambulates usually with the walker. She drives. Smoking Status: Former smoker Past Alcohol Use History: None Reported Additional Past Alcohol Use History / Comment(s): Pt states she started smoking in her teens and quit in 1989 Past Drug Use History: None Reported - Past Family History Father Additional Family Medical History / Comment(s): Father pulmonary fibrosis, Sister-melanoma 3 step siblings with cancer, dr beatty told patient that she just clots fast but her siblings should be tested for MUTAHON-MTHFR gene Mother Family Medical History: Cancer Medications and Allergies Home Medications Medication Instructions Recorded Confirmed Type Bimatoprost [Lumigan .01% Ophth 1 drop BOTH EYES HS 11/07/13 08/30/17 History Soln] Gabapentin [Neurontin] 600 mg PO DAILY 11/07/13 08/30/17 History Isosorbide Mononitrate [Imdur] 60 mg PO QAM 11/07/13 08/30/17 History Montelukast [Singulair] 10 mg PO HS 11/07/13 08/30/17 History Warfarin [Coumadin] 5 mg PO SUTUWETHSA 11/07/13 08/30/17 History Allopurinol [Zyloprim] 100 mg PO BID 07/09/14 08/30/17 History Nitroglycerin Sl Tabs [Nitrostat] 0.4 mg SUBLINGUAL Q5M PRN 07/09/14 08/30/17 History Warfarin [Coumadin] 2.5 mg PO MOFR 11/24/14 08/30/17 History Budesonide [Pulmicort] 0.5 mg INHALATION RT-BID 03/29/16 08/30/17 History Omeprazole 20 mg PO BID 03/29/16 08/30/17 History Simvastatin [Zocor] 40 mg PO HS 03/29/16 08/30/17 History traMADol HCL [Ultram] 100 mg PO Q8H PRN 03/29/16 08/30/17 History Metoprolol Tartrate [Lopressor] 25 mg PO TID #0 04/13/16 08/30/17 Rx Calcium Carbonate [Calcium] 600 mg PO DAILY 08/30/17 08/30/17 History Cholecalciferol [Vitamin D3] 1,000 unit PO DAILY 08/30/17 08/30/17 History Denosumab [Prolia] 60 mg SQ Q180D 08/30/17 08/30/17 History Losartan-Hctz 50-12.5 mg [Hyzaar 1 tab PO BID 08/30/17 08/30/17 History 50-12.5] Multivitamins, Thera [Multivitamin 1 tab PO DAILY 08/30/17 08/30/17 History (formulary)] Omalizumab [Xolair] 150 mg SQ Q14D 08/30/17 08/30/17 History Sucralfate [Carafate] 1 gm PO DAILY 08/30/17 08/30/17 History Allergies Allergy/AdvReac Type Severity Reaction Status Date / Time LUNA Inhibitors AdvReac Cough Verified 08/30/17 13:04 codeine AdvReac Nausea Verified 08/30/17 13:04 tape Allergy Unknown Uncoded 07/12/17 11:01 Physical Exam Vitals: Vital Signs Temp Pulse Pulse Resp BP Pulse Ox 08/31/17 07:43 70 08/31/17 07:35 70 08/31/17 07:20 63 16 08/31/17 05:00 97.8 F 63 16 128/62 94 L 08/30/17 21:30 97.5 F L 64 17 128/71 97 08/30/17 19:51 68 08/30/17 19:40 64 08/30/17 15:15 70 16 Intake and Output 08/30/17 08/31/17 08/31/17 22:59 06:59 14:59 Intake Total 225 600 Balance 225 600 Intake: Intake, IV Titration 225 600 Amount Lactated Ringers 1,000 ml 225 600 @ 75 mls/hr IV .[id number] SUBHASH Rx#:[id number] Other: Voiding Method Toilet Toilet Toilet # Voids 1 1 On exam there is no palpable effusion and patient has good range of motion of bilateral knees with crepitus of the left. - EENT Eyes: no abnormal pupil, no anicteric sclerae, no disc margins sharp, no edentulous, EOMI, no PERRLA, no fundus normal, no photophobia, no dentition normal, no poor dentition, no ptosis, no scleral icterus, no normal appearance - Cardiovascular Rhythm: regular Heart sounds: normal: S1, S2 Abnormal Heart Sounds: no systolic murmur, no diastolic murmur, no rub, no S3 Gallop, no S4 Gallop, no click, no other - Musculoskeletal There is no palpable effusion of the knees bilaterally. Musculoskeletal: no gait normal, no generalized weakness, no strength equal bilaterally, no right sided weakness, no left sided weakness Results CBC & Chem 7: 08/30/17 16:43 08/30/17 16:43 Labs: Abnormal Lab Results - Last 24 Hours (Table) 08/30/17 08/30/17 08/30/17 Range/Units 16:43 16:43 16:43 RBC 3.76 L (3.80-5.40) m/uL ESR (0-20) mm/hr PT 25.7 H (9.0-12.0) sec INR 2.9 H (<1.2) BUN 34 H (7-17) mg/dL Total Protein 5.4 L (6.3-8.2) g/dL Albumin 3.0 L (3.5-5.0) g/dL 08/30/17 08/31/17 Range/Units 16:43 08:18 RBC (3.80-5.40) m/uL ESR 50 H (0-20) mm/hr PT 22.3 H (9.0-12.0) sec INR 2.5 H (<1.2) BUN (7-17) mg/dL Total Protein (6.3-8.2) g/dL Albumin (3.5-5.0) g/dL Assessment and Plan (1) Knee pain, acute Current Visit: Yes Status: Acute Priority: High Code(s): M25.569 - PAIN IN UNSPECIFIED KNEE SNOMED Code(s): 74776410 (2) Knee effusion, left Current Visit: Yes Status: Acute Priority: High Code(s): M25.462 - EFFUSION, LEFT KNEE SNOMED Code(s): 508996786 (3) Primary osteoarthritis of left knee Current Visit: Yes Status: Chronic Priority: Medium Code(s): M17.12 - UNILATERAL PRIMARY OSTEOARTHRITIS, LEFT KNEE SNOMED Code(s): 952713267433435 (4) Septic arthritis Current Visit: Yes Status: Suspected Priority: High Code(s): M00.9 - PYOGENIC ARTHRITIS, UNSPECIFIED SNOMED Code(s): 327725350 Plan: Patient is seen today as an inpatient consult. Patient is an 82 year old female with PMH of osteoarthritis, HTN, asthma, HLD, and IBS. Patient has been seen at our office for left knee effusion and osteoarthritis. Patient presented for follow up at our office on 08/08 and was found to have significant effusion of left knee which was aspirated and 52 cc of fluid was drained and a steroid was injected. Appearance of synovial fluid was hazy and cell count revealed WBC of 2,660 and culture was negative at that time. Patient returned on 08/24 for significant pain and was unable to bear any weight on the knee. Knee was significantly swollen and effusion was noted on the lateral part and was very tender to touch and warm as well. Patient was unable to ambulate at the time and needed a wheelchair. Aspiration was performed today and 35 cc of extremely cloudy fluid was obtained and I injected her left knee with steroid. Cell count of synovial fluid revealed WBC of 26,417 which may have been muted due to the steroid injections. Culture revealed 1+ E. Coli and anaerobic culture after 2 days was negative. Based on clinical findings at the time of aspiration there was high suspicion of septic arthritis. When E. coli cultures returned on Tuesday patient was notified of results and our office contacted patient's PCP to facilitate admission and orthopedic consult. Today patient states she feels fine and patient was prescribed [place] at our office for pain relief and was also prescribed tramadol for pain control by Dr. Cm. Patient in general feels well with no pain and has not noticed any swelling of the knee. On exam there is no palpable effusion and patient has good range of motion of bilateral knees with crepitus of the left. On review of labs, patient's WBC is 7.5, CBC otherwise is Patient's ESR is 50. Patient has had knee x-ray which revealed moderate arthritis and orthopedic consult states that most likely E. coli finding was a contaminant. Infectious disease has been consulted. Patient is currently afebrile and WBC is within normal limits. As patient had increasing WBC in synovial fluid of left knee and clinically presented with high suspicion of septic arthritis, I will order a UA for possible UTI due to E.coli culture and I recommend blood cultures x 2 for further evaluation. Time with Patient: Greater than 30
[2017-08-31 17:06] LABS: Appearance,Urine Clear (Clear); Bilirubin,Urine Negative (Negative); Blood,Urine Negative (Negative); Color,Urine Light Yellow; Glucose,Urine (UA) Negative (Negative); Ketones,Urine Negative (Negative); Leukocyte Esterase,Urine Negative (Negative); Nitrite,Urine Negative (Negative); Protein,Urine Negative (Negative); Specific Gravity,Urine 1.012 (1.001-1.035); Urobilinogen,Urine <2.0 mg/dL (<2.0)
[2017-08-31] MEDS: WARFARIN 5 MG TAB PO SCH (17:42)
[2017-08-31] MEDS ORDERED: cefTRIAXone 2,000 MG in SODIUM CHLORIDE 0.9% 100 ML IVPB SCH (19:45)
[2017-08-31] MEDS: cefTRIAXone IN SWFI 2,000 MG/20 ML SYRINGE IVP SCH (21:35)
[2017-08-31] MEDS: MONTELUKAST 10 MG TAB PO SCH (21:36)
[2017-08-31] MEDS: ATORVASTATIN 20 MG TAB PO SCH (21:36)
[2017-08-31] MEDS: LATANOPROST 0.005% OPHTH DROPS 2.5 ML BTL BOTH EYES SCH (21:36)
--- NOTE | 2017-08-31 22:37 | P.CON ---
Consult Note - . Consult date: 08/31/17 Assessment/Plan:: This is an 82-year-old female patient who gives history that for the past 6 weeks she has had what started out as edema to the lateral upper left knee. She went to Dr. Gibson and saw the PA or nurse practitioner and x-rays were done. She was ordered for physical therapy and at that time she had good range of motion. She continued to have problems and then was sent to Dr. Potter who she is seen in the past to rule out rheumatoid arthritis. Patient has not been diagnosed with rheumatoid arthritis but does have significant arthritis in her hands and wrist. Dr. Potter drained her left knee 2 weeks ago and she had some improvement and then it was done again last Tuesday which she did have significant improvement after that. She states she had full range of motion and it was not painful but the day before she could actually feel the knee filling up with fluid and it was so painful that she could not put any weight on it. She denies having any fever or chills. She does state a little off and not quite herself. She was then called by Dr. Potter that she has an infection in her left knee and her PCP was contacted and arrangements were made for her to be admitted. On her chart, there is an anaerobic culture that is showing no growth at 2 days. No aerobic culture is currently on her chart. Please see the consult note is dictated by nurse practitioner Alta Garciazack. This pleasant woman relates that last week she is having severe pain to her knee. Is able to bear weight to the knee and was seen by the scuba diving teacher. Joint fluid was aspirated sent to the laboratory and steroid with injection to the knee. Within 24 hours her pain was considerably improved after the aspiration and steroid injection although still painful she's had some ongoing improvement. The patient was directed to the hospital when he became evidence of E. coli within her knee joint evidence of a high white blood cell count of the joint fluid. She's now been admitted and infectious diseases consultation was requested. The patient's knee is still somewhat tender effusion is improved. The culture shows evidence of a gram-negative bacilli which is E. coli and will require treatment. Regretfully it is fluoroquinolone resistant and consequently well require intravenous antibiotic therapy. The patient is independent and drives. She is willing to drive to the infusion facility on a daily basis for the next several weeks to complete a course of treatment for what appears to be a gram-negative septic arthritis of her knee. We discussed that without antibiotic therapy she developed severe progressive arthritis of her knee and could require extensive surgical interventions in the future. She understands the importance of antibiotic therapy and agrees. Orthopedic has evaluated and does not believe she needs surgical intervention. I agree with evaluation, assessment and plan as dictated by nurse practitioner Mrs. Alta Elder.
--- NOTE | 2017-09-01 05:13 | PN ---
PROGRESS NOTE DATE OF SERVICE: 08/31/2017 PRESENTING COMPLAINT: Septic arthritis. INTERVAL HISTORY: This patient presented with septic arthritis of the left knee. Cultures positive for E coli. Seen by Dr. Patrick. The patient will be getting IV antibiotics. Pain is well controlled. Tolerating a diet. No fever or chills. REVIEW OF SYSTEMS: Review of systems done for constitutional, cardiovascular, GI, pulmonary; relevant findings as above. CURRENT MEDICATIONS: Current medications are reviewed that include IV ceftriaxone. PHYSICAL EXAMINATION: On examination, temperature 97.9, pulse 62, respiration 18, blood pressure 128/57, pulse ox 92% on room air. GENERAL APPEARANCE: Sitting up on the edge of the bed, comfortable. EYES: Pupils equal. Conjunctivae normal. HEENT: External appearance of nose and ears normal. Oral cavity normal. NECK: JVD not raised. Mass not palpable. RESPIRATORY: Effort normal. Lungs are clear. CARDIOVASCULAR: First and second sounds normal. No edema. ABDOMEN: Soft, nontender. Liver and spleen not palpable. PSYCHIATRY: Alert and oriented x3. Mood and affect normal. MUSCULOSKELETAL: Some tenderness on the left knee. INVESTIGATIONS: INR 2.5. UA negative. ASSESSMENT: 1. Left knee septic arthritis from Escherichia coli. 2. Essential hypertension. 3. Mild intermittent asthma. 4. Hyperlipidemia. 5. Primary osteoarthritis. 6. Permanent pacemaker. 7. 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 8. Coumadin monitoring. 9. Irritable bowel syndrome. PLAN: Continue current medication and treatment plan. Antibiotics have been coordinated by Dr. Patrick. Care was discussed with the patient. MMODL / IJN: [id number] /
[2017-09-01] MEDS: LACTATED RINGERS 1,000 ML IV SCH ×2 (07:12→20:06)
[2017-09-01] MEDS: ISOSORBIDE MONONITRATE ER 60 MG TAB.ER.24H PO SCH (07:13)
[2017-09-01] MEDS: ALLOPURINOL 100 MG TAB PO SCH ×2 (07:13→20:12)
[2017-09-01] MEDS: PANTOPRAZOLE 40 MG TABLET PO SCH (07:13)
[2017-09-01] MEDS: GABAPENTIN 300 MG CAP PO SCH (07:13)
[2017-09-01] MEDS: LOSARTAN-HCTZ 50-12.5 MG 1 EACH TAB PO SCH ×2 (07:13→20:12)
[2017-09-01] MEDS: METOPROLOL TARTRATE 25 MG TAB PO SCH ×3 (07:14→20:12)
[2017-09-01] MEDS: SUCRALFATE 1 GM TAB PO SCH (07:14)
[2017-09-01 07:23] LABS: INR 2.4 (<1.2); Prothrombin Time 21.2 sec (9.0-12.0)
[2017-09-01] MEDS: BUDESONIDE 0.5 MG/2 ML NEBU INHALATION SCH ×2 (07:32→20:21)
--- NOTE | 2017-09-01 08:21 | P.PN ---
Subjective Progress Note Date: 09/01/17 This is an 82-year-old female admitted for left knee infection. Patient states that today she is not having any pain in the left knee. Patient denies any new complaints. Patient denies any fever/chills, numbness, weakness, tingling, abdominal pain, shortness of breath or chest pain. Objective - Vital Signs Vital signs: Vital Signs Temp 97.1 F L 09/01/17 05:30 Pulse 68 09/01/17 07:40 Resp 16 09/01/17 05:30 BP 136/69 09/01/17 05:30 Pulse Ox 94 L 09/01/17 05:30 Intake & Output 08/31/17 09/01/17 09/01/17 18:59 06:59 18:59 Intake Total 815 Balance 815 Intake: Intake, IV Titration 225 Amount Lactated Ringers 1,000 ml 225 @ 75 mls/hr IV .[id number] SUBHASH Rx#:[id number] Oral 590 Other: Voiding Method Toilet Toilet Toilet # Voids 1 2 # Bowel Movements 1 - Exam On exam patient is alert and oriented 3 and lying comfortably in bed in no acute distress. There is no effusion, erythema or ecchymosis of the left knee. There is no tenderness to palpation. Calf is soft and nontender to palpation. Sensation intact. Neurovascular status and circulatory status are intact. - Labs CBC & Chem 7: 08/30/17 16:43 08/30/17 16:43 Labs: Abnormal Lab Results - Last 24 Hours (Table) 08/31/17 09/01/17 Range/Units 08:18 06:59 PT 22.3 H 21.2 H (9.0-12.0) sec INR 2.5 H 2.4 H (<1.2) Microbiology - Last 24 Hours (Table) 08/31/17 16:10 Urine Culture - Preliminary Urine,Clean Catch Assessment and Plan (1) Knee pain, left Current Visit: No Status: Acute Code(s): M25.562 - PAIN IN LEFT KNEE SNOMED Code(s): 55828552 (2) Primary osteoarthritis of left knee Current Visit: Yes Status: Chronic Priority: Medium Code(s): M17.12 - UNILATERAL PRIMARY OSTEOARTHRITIS, LEFT KNEE SNOMED Code(s): 527460601729253 Plan: 1. X-ray results were discussed with the patient. X-rays of the left knee show osteoarthritis. 2. No surgical intervention planned. Patient may follow up as an outpatient on an as-needed basis.
[2017-09-01] MEDS: MULTIVITAMINS, THERA 1 EACH TAB PO SCH (11:16)
[2017-09-01] MEDS ORDERED: LIDOCAINE 2% INJ 20 MG/ML (20 ML MDV) ONE (13:41)
[2017-09-01] MEDS ORDERED: LIDOCAINE 2% INJ 20 MG/ML SQ ONE (14:03)
--- NOTE | 2017-09-01 15:15 | IR ---
EXAMINATION TYPE: IR cvc insert >=5 years DATE OF EXAM: 09/01/2017 COMPARISON: NONE CLINICAL HISTORY: Infection Needs long-term intravenous access for antibiotics. PROCEDURE: After informed consent, the skin overlying the right basilic vein was localized with ultrasound and n oted to be compressible and patent. An ultrasound image was obtained and submitted on the patient's chart. The overlying skin was prepped and draped and Lidocaine was used for local anesthesia. A ski n mary was made with a scalpel. Access was gained to the vein under ultrasound guidance with a 21 ga uge needle and a 0.018 inch wire was advanced. Access site was dilated with Peel-Away sheath and cat heter tailored to the appropriate length and advanced such that the distal tip is at the cavoatrial j unction. Spot image was obtained verifying placement. Catheter was fixed to the skin and a sterile dressing was placed following hemostasis. Catheter was aspirated and flushed with saline. Patient w as discharged in stable condition without complication. Maximal barrier technique is utilized. Ultra sound image is documented on the chart. Ultrasound used with sterile technique. Fluoro time and fluoroscopic images submitted to document procedure: 0.2 minutes fluoroscopy time, 73 intraoperative images IMPRESSION: STATUS POST ULTRASOUND AND FLUOROSCOPIC GUIDED PICC LINE PLACEMENT, READY FOR USE. THIS PROCEDURE WAS PERFORMED BY THE UNDERSIGNED.
--- NOTE | 2017-09-01 17:44 | PN ---
PROGRESS NOTE DATE OF SERVICE: 09/01/2017. PRESENTING COMPLAINT: Septic arthritis. INTERVAL HISTORY: The patient with septic arthritis of the left knee. Pain is controlled. Getting treated for E coli. This afternoon patient is supposed to be going down for a PICC line. Otherwise patient is tolerating a diet. No other issues. REVIEW OF SYSTEMS: Done for constitutional, cardiovascular, GI, pulmonary, musculoskeletal; relevant findings as above. CURRENT MEDICATIONS: Reviewed, include IV ceftriaxone. PHYSICAL EXAMINATION: Temperature 97.5 pulse 55, respiratory rate 18, blood pressure 121/66, pulse 94%. GENERAL APPEARANCE: Sitting up at the edge of the bed, comfortable. EYES: Pupils equal. Conjunctivae normal. HEENT: External appearance of nose and ears normal. Oral cavity normal. NECK: JVD not raised. Mass not palpable. Respiratory effort normal. LUNGS: Clear. CARDIOVASCULAR: 1st and 2nd sounds normal. No edema. ABDOMEN: Soft, nontender. Liver and spleen not palpable. PSYCHIATRY: Alert and oriented x3. Mood and affect normal. INVESTIGATIONS: INR 2.4. ESR 39. ASSESSMENT: 1. Left knee septic arthritis. Cultures growing E coli. 2. Essential hypertension. 3. Mild intermittent asthma. 4. Hyperlipidemia. 5. Primary osteoarthritis. 6. Permanent pacemaker. 7. 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 8. Coumadin monitoring. 9. Irritable bowel syndrome. PLAN: Spoke to Dr. Brendan Mcclain earlier today. The patient will have a PICC line placed this afternoon. second worker is coordinating home antibiotics. Care was discussed with the patient with her friend at the bedside. MMODL / IJN: [id number] /
[2017-09-01] MEDS ORDERED: WARFARIN 5 MG TAB PO SCH (18:00)
[2017-09-01] MEDS: cefTRIAXone IN SWFI 2,000 MG/20 ML SYRINGE IVP SCH (20:11)
[2017-09-01] MEDS: ATORVASTATIN 20 MG TAB PO SCH (20:12)
[2017-09-01] MEDS: MONTELUKAST 10 MG TAB PO SCH (20:12)
[2017-09-01] MEDS: LATANOPROST 0.005% OPHTH DROPS 2.5 ML BTL BOTH EYES SCH (20:12)
--- NOTE | 2017-09-01 23:58 | P.PN ---
Subjective Progress Note Date: 09/01/17 This is an 82-year-old female patient who gives history that for the past 6 weeks she has had what started out as edema to the lateral upper left knee. She went to Dr. Gibson and saw the PA or nurse practitioner and x-rays were done. She was ordered for physical therapy and at that time she had good range of motion. She continued to have problems and then was sent to Dr. Potter who she is seen in the past to rule out rheumatoid arthritis. Patient has not been diagnosed with rheumatoid arthritis but does have significant arthritis in her hands and wrist. Dr. Potter drained her left knee 2 weeks ago and she had some improvement and then it was done again last Tuesday which she did have significant improvement after that. She states she had full range of motion and it was not painful but the day before she could actually feel the knee filling up with fluid and it was so painful that she could not put any weight on it. She denies having any fever or chills. She does state a little off and not quite herself. She was then called by Dr. Potter that she has an infection in her left knee and her PCP was contacted and arrangements were made for her to be admitted. On her chart, there is an anaerobic culture that is showing no growth at 2 days. No aerobic culture is currently on her chart. 09/01/2017 reveals the patient is feeling better. With antibiotic therapy in the recent steroid injection her pain is improved. She still elevating the knee and ice as needed times. Still has some pain with ambulation but is much better than she was last week. Wound culture shows evidence of E. coli from the aspiration of the knee. Objective - Vital Signs Vital signs: Vital Signs Temp 97.6 F 09/01/17 20:10 Pulse 61 09/01/17 23:09 Resp 17 09/01/17 23:09 BP 130/62 09/01/17 20:10 Pulse Ox 95 09/01/17 20:10 Intake & Output 09/01/17 09/01/17 09/02/17 06:59 18:59 06:59 Intake Total 815 300 Balance 815 300 Weight 92.76 kg Intake: Intake, IV Titration 225 300 Amount Lactated Ringers 1,000 ml 225 300 @ 75 mls/hr IV .[id number] [facility] Rx#:[id number] Oral 590 Other: Voiding Method Toilet Toilet Toilet # Voids 2 3 - Exam Gen: This is an 82-year-old female. She is found sitting on the edge of the bed and appears to be comfortable and in no acute distress. HEENT: Head is atraumatic, normocephalic. Pupils equal, round. Sclerae is anicteric. Conjunctiva pink. Mucous members of the mouth are moist. No thrush noted. NECK: Supple. No JVD. No lymphadenopathy. No thyromegaly. LUNGS: Clear to auscultation. No wheezes or rhonchi. No intercostal retractions. HEART: Regular rate and rhythm. No murmur. ABDOMEN: Soft. Bowel sounds are present. No masses. No tenderness. EXTREMITIES: No pedal edema. No calf tenderness. Patient has noted to have surgical scar to the right knee. She has mild edema to the lateral upper area as well as the same on the left. Full range of motion to the left knee. No warmth to touch. No wounds. No erythema. Dorsalis pedis +2 bilaterally. The left knee remains tender along the lateral aspect upon palpation. NEUROLOGICAL: Patient is awake, alert and oriented x3. - Labs CBC & Chem 7: 08/30/17 16:43 08/30/17 16:43 Labs: Abnormal Lab Results - Last 24 Hours (Table) 09/01/17 09/01/17 Range/Units 06:59 06:59 ESR 39 H (0-20) mm/hr PT 21.2 H (9.0-12.0) sec INR 2.4 H (<1.2) Microbiology - Last 24 Hours (Table) 08/31/17 16:10 Urine Culture - Final Urine,Clean Catch Laboratory Results WBC 7.5 k/uL (3.8-10.6) 08/30/17 16:43 RBC 3.76 m/uL (3.80-5.40) L 08/30/17 16:43 Hgb 11.8 gm/dL (11.4-16.0) 08/30/17 16:43 Hct 36.0 % (34.0-46.0) 08/30/17 16:43 MCV 95.6 fL (80.0-100.0) 08/30/17 16:43 MCH 31.3 pg (25.0-35.0) 08/30/17 16:43 MCHC 32.8 g/dL (31.0-37.0) 08/30/17 16:43 RDW 14.6 % (11.5-15.5) 08/30/17 16:43 Plt Count 290 k/uL (150-450) 08/30/17 16:43 Neutrophils % 73 % 08/30/17 16:43 Lymphocytes % 16 % 08/30/17 16:43 Monocytes % 7 % 08/30/17 16:43 Eosinophils % 3 % 08/30/17 16:43 Basophils % 0 % 08/30/17 16:43 Neutrophils # 5.5 k/uL (1.3-7.7) 08/30/17 16:43 Lymphocytes # 1.2 k/uL (1.0-4.8) 08/30/17 16:43 Monocytes # 0.5 k/uL (0-1.0) 08/30/17 16:43 Eosinophils # 0.2 k/uL (0-0.7) 08/30/17 16:43 Basophils # 0.0 k/uL (0-0.2) 08/30/17 16:43 ESR 39 mm/hr (0-20) H 09/01/17 06:59 PT 21.2 sec (9.0-12.0) H 09/01/17 06:59 INR 2.4 (<1.2) H 09/01/17 06:59 Sodium 140 mmol/L (137-145) 08/30/17 16:43 Potassium 4.0 mmol/L (3.5-5.1) 08/30/17 16:43 Chloride 105 mmol/L (98-107) 08/30/17 16:43 Carbon Dioxide 26 mmol/L (22-30) 08/30/17 16:43 Anion Gap 9 mmol/L 08/30/17 16:43 BUN 34 mg/dL (7-17) H 08/30/17 16:43 Creatinine 0.90 mg/dL (0.52-1.04) 08/30/17 16:43 Est GFR (CKD-EPI)AfAm 70 (>60 ml/min/1.73 sqM) 08/30/17 16:43 Est GFR (CKD-EPI)NonAf 61 (>60 ml/min/1.73 sqM) 08/30/17 16:43 Glucose 93 mg/dL (74-99) 08/30/17 16:43 Calcium 9.3 mg/dL (8.4-10.2) 08/30/17 16:43 Total Bilirubin 0.2 mg/dL (0.2-1.3) 08/30/17 16:43 AST 28 U/L (14-36) 08/30/17 16:43 ALT 51 U/L (9-52) 08/30/17 16:43 Alkaline Phosphatase 82 U/L (38-126) 08/30/17 16:43 C-Reactive Protein <5.0 mg/L (<10.0) 09/01/17 06:59 Total Protein 5.4 g/dL (6.3-8.2) L 08/30/17 16:43 Albumin 3.0 g/dL (3.5-5.0) L 08/30/17 16:43 Urine Color Light Yellow 08/31/17 16:10 Urine Appearance Clear (Clear) 08/31/17 16:10 Urine pH 6.0 (5.0-8.0) 08/31/17 16:10 Ur Specific [place] 1.012 (1.001-1.035) 08/31/17 16:10 Urine Protein Negative (Negative) 08/31/17 16:10 Urine Glucose (UA) Negative (Negative) 08/31/17 16:10 Urine Ketones Negative (Negative) 08/31/17 16:10 Urine Blood Negative (Negative) 08/31/17 16:10 Urine Nitrite Negative (Negative) 08/31/17 16:10 Urine Bilirubin Negative (Negative) 08/31/17 16:10 Urine Urobilinogen <2.0 mg/dL (<2.0) 08/31/17 16:10 Ur Leukocyte Esterase Negative (Negative) 08/31/17 16:10 Microbiology 08/31/17 16:10 Urine,Clean Catch Urine Culture - Final Outpatient culture synovial fluid left knee Escherichia coli. White blood cell count of 26,000 of the synovial fluid. Assessment and Plan (1) Septic arthritis Narrative/Plan: This pleasant woman relates that last week she is having severe pain to her knee. Is able to bear weight to the knee and was seen by the street department dispatcher. Joint fluid was aspirated sent to the laboratory and steroid with injection to the knee. Within 24 hours her pain was considerably improved after the aspiration and steroid injection although still painful she's had some ongoing improvement. The patient was directed to the hospital when he became evidence of E. coli within her knee joint evidence of a high white blood cell count of the joint fluid. She's now been admitted and infectious diseases consultation was requested. The patient's knee is still somewhat tender effusion is improved. The culture shows evidence of a gram-negative bacilli which is E. coli and will require treatment. Regretfully it is fluoroquinolone resistant and consequently well require intravenous antibiotic therapy. The patient is independent and drives. She is willing to drive to the infusion facility on a daily basis for the next several weeks to complete a course of treatment for what appears to be a gram-negative septic arthritis of her knee. We discussed that without antibiotic therapy she developed severe progressive arthritis of her knee and could require extensive surgical interventions in the future. She understands the importance of antibiotic therapy and agrees. Orthopedic has evaluated and does not believe she needs surgical intervention. 5 06/02/2017 the patient has improved. She has received her PICC line for her outpatient intravenous antibiotic therapy. Receiving insurance approval is occurring for her outpatient treatment. The patient has evidence of the outpatient culture with E. coli, this would never be considered a contaminant since gram-negative bacilli are never present in joint fluid unless there is an infection. Consequently 3 course of therapy is being planned at this point in time. Current Visit: Yes Status: Suspected Priority: High Code(s): M00.9 - PYOGENIC ARTHRITIS, UNSPECIFIED SNOMED Code(s): 216472605
[2017-09-02 06:05] VITALS: BP 157/77; TEMP 97.7
[2017-09-02] MEDS: BUDESONIDE 0.5 MG/2 ML NEBU INHALATION SCH (07:05)
[2017-09-02 07:07] VITALS: RESP 16
[2017-09-02 07:15] VITALS: PULSE 72
[2017-09-02] MEDS: GABAPENTIN 300 MG CAP PO SCH (07:26)
[2017-09-02] MEDS: ALLOPURINOL 100 MG TAB PO SCH (07:26)
[2017-09-02] MEDS: SUCRALFATE 1 GM TAB PO SCH (07:27)
[2017-09-02] MEDS: LOSARTAN-HCTZ 50-12.5 MG 1 EACH TAB PO SCH (07:27)
[2017-09-02] MEDS: METOPROLOL TARTRATE 25 MG TAB PO SCH (07:27)
[2017-09-02] MEDS: PANTOPRAZOLE 40 MG TABLET PO SCH (07:27)
[2017-09-02] MEDS: ISOSORBIDE MONONITRATE ER 60 MG TAB.ER.24H PO SCH (07:27)
[2017-09-02] MEDS: LACTATED RINGERS 1,000 ML IV SCH (07:29)
--- NOTE | 2017-09-02 08:27 | P.PN ---
Subjective Progress Note Date: 09/02/17 This is an 82-year-old female admitted for left knee infection. Patient denies any pain in the left knee today. Patient denies any new complaints today. Patient denies any fever/chills, numbness, weakness, tingling, abdominal pain, shortness of breath or chest pain. Objective - Vital Signs Vital signs: Vital Signs Temp 97.7 F 09/02/17 05:00 Pulse 72 09/02/17 07:15 Resp 16 09/02/17 07:15 BP 157/77 09/02/17 05:00 Pulse Ox 95 09/02/17 07:07 Intake & Output 09/01/17 09/02/17 09/02/17 18:59 06:59 18:59 Intake Total 1630 Balance 1630 Weight 92.76 kg Intake: Intake, IV Titration 1050 Amount Lactated Ringers 1,000 ml 1050 @ 75 mls/hr IV .[id number] [facility] Rx#:[id number] Oral 580 Other: Voiding Method Toilet Toilet Toilet # Voids 3 2 - Exam Vital signs are stable. On exam patient is alert and oriented 3 and sitting up in bed in no acute distress. There is no effusion, erythema or ecchymosis of the left knee. There is minimal tenderness to palpation along the medial joint line. Calf is soft and nontender to palpation. Sensation intact. Patient has full range of motion of the left lower extremity without pain or difficulty. Neurovascular status and circulatory status are intact. - Labs CBC & Chem 7: 08/30/17 16:43 08/30/17 16:43 Labs: Abnormal Lab Results - Last 24 Hours (Table) 09/01/17 Range/Units 06:59 ESR 39 H (0-20) mm/hr Microbiology - Last 24 Hours (Table) 08/31/17 16:10 Urine Culture - Final Urine,Clean Catch Assessment and Plan (1) Knee pain, left Current Visit: No Status: Acute Code(s): M25.562 - PAIN IN LEFT KNEE SNOMED Code(s): 28853746 (2) Primary osteoarthritis of left knee Current Visit: Yes Status: Chronic Priority: Medium Code(s): M17.12 - UNILATERAL PRIMARY OSTEOARTHRITIS, LEFT KNEE SNOMED Code(s): 914531107872506 Plan: 1. X-rays of the left knee show osteoarthritis. 2. No surgical intervention planned. Patient may follow up as an outpatient on an as-needed basis.
[2017-09-02 10:25] LABS: INR 2.3 (<1.2); Prothrombin Time 20.8 sec (9.0-12.0)
[2017-09-02] MEDS: MULTIVITAMINS, THERA 1 EACH TAB PO SCH (10:42)
[2017-09-02] MEDS: cefTRIAXone IN SWFI 2,000 MG/20 ML SYRINGE IVP SCH (15:25)
[2017-09-02] MEDS ORDERED: WARFARIN 2.5 MG TAB PO SCH ×2 (18:00)
--- NOTE | 2017-09-02 23:16 | DS ---
DISCHARGE SUMMARY DATE OF ADMISSION: 08/30/2017. DATE OF DISCHARGE: 09/02/2017 FINAL DIAGNOSES: 1. Left knee septic arthritis, cultures growing Escherichia coli. 2. Essential hypertension. 3. Mild intermittent asthma. 4. Hyperlipidemia. 5. Primary osteoarthritis, multiple joints. 6. Permanent pacemaker. 7. 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 8. Coumadin monitoring. 9. Irritable bowel syndrome .. CONSULTATIONS: Dr. Patrick from infectious disease, Dr. Fuller from orthopedics and Dr. Potter from rheumatology. HOSPITAL COURSE: This patient, who has had pain, swelling in the left knee saw Dr. Potter in the office, who had tapped the knee. The patient did get a steroid injection x2. The fluid was cloudy-appearing. Cultures did come back showing E coli for which the patient is admitted for septic arthritis, started on antibiotics by Dr. Patrick. Did get a PICC line placed. Doing much better at the time of discharge afebrile, normal white count. INR was therapeutic. EXAM: Lungs are clear. CARDIOVASCULAR: First and second sounds normal. Minimal tenderness in the left knee. DISCHARGE MEDICATIONS: 1. Lumigan 0.01% 1 drop to both eyes q.h.s. 2. Neurontin 600 mg p.o. daily. 3. Imdur 60 mg daily. 4. Singulair 10 mg q.h.s. 5. Coumadin 5 mg Tuesday, Tuesday, Tuesday, , Tuesday. 6. Allopurinol 100 mg p.o. b.i.d. 7. Nitrostat 0.4 sublingual q.5 p.r.n. 8. Coumadin 2.5 mg Tuesday and Tuesday. 9. Pulmicort 0.5 mg b.i.d. 10.Omeprazole 20 mg b.i.d. 11.Zocor 40 mg q.h.s. 12.Ultram 100 mg q.8h p.r.n. 13.Lopressor 25 p.o. t.i.d. 14.Calcium 600 mg p.o. daily. 15.Vitamin D3 1000 units p.o. daily. 16.Prolia 60 mg subcu every 180 days. 17.Hyzaar 50/12.5 one tab p.o. b.i.d. 18.Multivitamin 1 tablet p.o. daily. 19.Xolair 150 mg subcu 14 days. 20.Carafate 1 g p.o. daily. 21.Ceftriaxone 2 g IV piggyback q.24 for a total of 21 days. FOLLOWUP: With Dr. Patrick on 09/21/2017, Dr. Cm on 09/03/2017, Dr. Leonel Birch p.r.nGeno LABS: BMP, CBC in 1 week. The patient will be followed by Dr. Patrick' office for the infusion. Discussion and discharge planning more than 35 minutes. MMODL / IJN: [id number] /
== END 2017-09-02 16:20 | disposition home or self-care (01) | DRG 549 ==
LOC: 5MS5E 12:06
PROVIDERS: ADMIT Hospitalist; ATTEND Hospitalist
PROC: 02HV33Z Insertion of Infusion Device into Superior Vena Cava, Percutaneous Approach (ICD-10-PCS; principal; 2017-09-01 11:30)
DX: M00.9 Pyogenic arthritis, unspecified (principal); D68.9 Coagulation defect, unspecified; I10 Essential (primary) hypertension; J45.20 Mild intermittent asthma, uncomplicated; E78.5 Hyperlipidemia, unspecified; K58.9 Irritable bowel syndrome, unspecified; B96.20 Unspecified Escherichia coli [E. coli] as the cause of diseases classified elsewhere; Z96.651 Presence of right artificial knee joint; Z16.23 Resistance to quinolones and fluoroquinolones; M81.0 Age-related osteoporosis without current pathological fracture; M10.9 Gout, unspecified; J44.9 Chronic obstructive pulmonary disease, unspecified; H40.9 Unspecified glaucoma; M17.12 Unilateral primary osteoarthritis, left knee; M71.20 Synovial cyst of popliteal space [Baker], unspecified knee; M50.30 Other cervical disc degeneration, unspecified cervical region; M19.042 Primary osteoarthritis, left hand; M19.041 Primary osteoarthritis, right hand; M19.039 Primary osteoarthritis, unspecified wrist; Z87.891 Personal history of nicotine dependence; Z80.8 Family history of malignant neoplasm of other organs or systems; Z79.899 Other long term (current) drug therapy; Z95.0 Presence of cardiac pacemaker; Z86.718 Personal history of other venous thrombosis and embolism; Z79.01 Long term (current) use of anticoagulants; Z98.42 Cataract extraction status, left eye; Z98.41 Cataract extraction status, right eye; Z98.51 Tubal ligation status
CPT/HCPCS: 36569; 76937; 77001; 80053; 81003; 85025; 85610; 85652; 86140; 87086; 94640; 94760

== ENCOUNTER 2017-10-03 12:36 | Emergency (ER) | payer MEDICARE ==
[2017-10-03 13:04] VITALS: RESP 16
[2017-10-03] MEDS ORDERED: OXYMETAZOLINE 0.05% NASL SPRAY 1 SPRAY BOTTLE NASAL STA (14:03)
--- NOTE | 2017-10-03 14:20 | ED ---
ENT HPI - General Chief complaint: ENT Stated complaint: bloody nose Time Seen by Provider: 10/03/17 13:52 Source: patient, RN notes reviewed Mode of arrival: ambulatory Limitations: no limitations - History of Present Illness Initial comments: This is a 82-year-old female past medical history of atrial fibrillation on Coumadin who presents today for chief complaint of nosebleed 6 hours. Patient states that she woke up this morning and when she sat her nose began to moderately bleed she believes that it started some time shortly before she woke up, there is no evidence of bleeding on her pillow or bedding. Patient denies any fall or trauma. Patient had an appointment in [facility] for her atrial fibrillation where she had her INR checked she states that it was around 3. Is instructed to skip her dosage of Coumadin for the day. Patient was bleeding at the time of the appointment and was instructed to emergency department if it didn't stop. Patient presents to the emergency department today in stable condition with mild active nosebleed. Patient denies dizziness , chest pain, palpitations, difficulty breathing, dyspnea, fever, chills, back pain, abdominal pain, nausea or vomiting, numbness or tingling, dysuria or hematuria, constipation or diarrhea, headaches or visual changes, or any other complaints. - Related Data Home Medications Medication Instructions Recorded Confirmed Bimatoprost [Lumigan .01% Ophth 1 drop BOTH EYES HS 11/07/13 10/03/17 Soln] Gabapentin [Neurontin] 600 mg PO DAILY 11/07/13 10/03/17 Isosorbide Mononitrate [Imdur] 60 mg PO QAM 11/07/13 10/03/17 Montelukast [Singulair] 10 mg PO HS 11/07/13 10/03/17 Warfarin [Coumadin] 5 mg PO SUTUWETHSA 11/07/13 10/03/17 Allopurinol [Zyloprim] 200 mg PO BID 07/09/14 10/03/17 Nitroglycerin Sl Tabs [Nitrostat] 0.4 mg SUBLINGUAL Q5M PRN 07/09/14 10/03/17 Warfarin [Coumadin] 2.5 mg PO MOFR 11/24/14 10/03/17 Budesonide [Pulmicort] 0.5 mg INHALATION RT-BID 03/29/16 10/03/17 Omeprazole 20 mg PO BID 03/29/16 10/03/17 Simvastatin [Zocor] 40 mg PO HS 03/29/16 10/03/17 Calcium Carbonate [Calcium] 600 mg PO DAILY 08/30/17 10/03/17 Cholecalciferol [Vitamin D3] 1,000 unit PO DAILY 08/30/17 10/03/17 Denosumab [Prolia] 60 mg SQ Q180D 08/30/17 10/03/17 Losartan-Hctz 50-12.5 mg [Hyzaar 1 tab PO BID 08/30/17 10/03/17 50-12.5] Multivitamins, Thera [Multivitamin 1 tab PO DAILY 08/30/17 10/03/17 (formulary)] Sucralfate [Carafate] 1 gm PO DAILY 08/30/17 10/03/17 Cefadroxil [Duricef] 500 mg PO Q12HR 10/03/17 10/03/17 Previous Rx's Medication Instructions Recorded Metoprolol Tartrate [Lopressor] 25 mg PO TID #0 04/13/16 Allergies Allergy/AdvReac Type Severity Reaction Status Date / Time LUNA Inhibitors AdvReac Cough Verified 10/03/17 14:00 codeine AdvReac Nausea Verified 10/03/17 14:00 tape Allergy Unknown Uncoded 10/03/17 13:04 Review of Systems ROS Statement: Those systems with pertinent positive or pertinent negative responses have been documented in the HPI. ROS Other: All systems not noted in ROS Statement are negative. Constitutional: Denies: fever, chills Cardiovascular: Denies: chest pain, palpitations, dyspnea on exertion Past Medical History Past Medical History: Asthma, COPD, Hyperlipidemia, Hypertension, Osteoarthritis (OA) Additional Past Medical History / Comment(s): Hx. gout, osteoporosis, arthritis , DVT L upper arm, "clots fast" pt states per Dr. Beatty, dermatitis, bilateral glaucoma, bradycardia- pacemaker, degenerative disc disease, cervical and back pain History of Any Multi-Drug Resistant Organisms: None Reported Past Surgical History: Adenoidectomy, Appendectomy, Cholecystectomy, Hernia Repair, Orthopedic Surgery, Pacemaker, Tonsillectomy, Tubal Ligation Additional Past Surgical History / Comment(s): Hx throat nodule removed, mole left eyelid, D&C, bilat cataracts removed . RIGHT KNEE REPLACEMENT X 2. , hiatal hernia repair, I&D L inguinal abscess, aspiration left knee 2 in August 2017. Past Anesthesia/Blood Transfusion Reactions: No Reported Reaction, Motion Sickness Type of Cardiac Device: Permanent Pacemaker Device Placement Date:: October 2012 Past Psychological History: No Psychological Hx Reported Smoking Status: Former smoker Past Alcohol Use History: None Reported Past Drug Use History: None Reported - Past Family History Father Additional Family Medical History / Comment(s): Father pulmonary fibrosis, Sister-melanoma 3 step siblings with cancer, dr beatty told patient that she just clots fast but her siblings should be tested for MUTAHON-MTHFR gene Mother Family Medical History: Cancer General Exam - General Exam Comments Initial Comments: General: The patient is awake and alert, in no distress, and does not appear acutely ill. Eye: Pupils are equal, round and reactive to light, extra-ocular movements are intact. No nystagmus. There is normal conjunctiva bilaterally. No signs of icterus. Ears, nose, mouth and throat: There are moist mucous membranes and no oral lesions. Nose and midline, No lesions masses or external nares. There is mild bleeding present in the nares bilaterally, no evidence of septal hematoma. There is no displacement of the bone or cartilage, septum midline. Patient denies any tenderness to palpation of the nares. There is very mild posterior epistaxis, on oropharynx examination. Source of anterior bleeding not identified. Neck: The neck is supple, there is no tenderness or JVD. Cardiovascular: There is a irregular rhythm with regular rate- this is patients baseline. No murmur, rub or gallop is appreciated. Respiratory: Lungs are clear to auscultation, respirations are non-labored, breath sounds are equal. No wheezes, stridor, rales, or rhonchi. Gastrointestinal: [Soft, non-distended, non-tender abdomen without masses or organomegaly noted. There is no rebound or guarding present. No CVA tenderness. Bowel sounds are unremarkable.] Musculoskeletal: Normal ROM, no tenderness. Strength 5/5. Sensation intact. Pulses equal bilaterally 2+. Neurological: A&O x 3. CN II-XII intact, There are no obvious motor or sensory deficits. Coordination appears grossly intact. Speech is normal. Skin: Skin is warm and dry and no rashes or lesions are noted. Psychiatric: Cooperative, appropriate mood & affect, normal judgment. Limitations: no limitations Course Vital Signs 10/03/17 10/03/17 13:02 15:31 Temperature 98.2 F 97 F L Pulse Rate 78 71 Respiratory 16 16 Rate Blood Pressure 151/76 126/69 O2 Sat by Pulse 96 97 Oximetry Medical Decision Making - Medical Decision Making This is a 82-year-old female past medical history of atrial fibrillation on Coumadin who presents today for chief complaint of nosebleed 6 hours. Patient states that she woke up this morning and when she sat her nose began to moderately bleed she believes that it started some time shortly before she woke up, there is no evidence of bleeding on her pillow or bedding. Patient denies any fall or trauma. Patient had an appointment in cardiology associates for her atrial fibrillation where she had her INR checked she states that it was around 3. Is instructed to skip her dosage of Coumadin for the day. Patient was bleeding at the time of the appointment and was instructed to emergency department if it didn't stop. Patient presents to the emergency department today in stable condition with mild active nosebleed. Patient denies dizziness , chest pain, palpitations, difficulty breathing, dyspnea, fever, chills, back pain, abdominal pain, nausea or vomiting, numbness or tingling, dysuria or hematuria, constipation or diarrhea, headaches or visual changes, or any other complaints. Upon presentation to the emergency department patient's vital signs stable. Upon physical examination here are moist mucous membranes and no oral lesions. Nose and midline, no lesions masses of the internal or external nares. There is mild bleeding present in the nares bilaterally, no evidence of septal hematoma. There is no displacement of the bone or cartilage, septum midline. Patient denies any tenderness to palpation of the nares. There is very mild posterior epistaxis, on oropharynx examination. Source of anterior bleeding not identified. Pressure was applied using nasal clamp for 15-20 minutes the nares, after pressure continued to bleed very mildly, Afrin was applied to the nares bilaterally by the patient continued to apply pressure with a nasal clamp. A CBC and coags were obtained. INR elevated at 3.1, PT elevated at 28.1, APTT 34.2. Hemoglobin 12.2. After the Afrin spray was applied and he continues pressure to the nares anterior bleeding. There is no evidence of active posterior bleeding. Patient states that she is ready for discharge the case was discussed in detail with Dr. Sanchez physician assessment the patient is stable and ready for discharge. She is to return if the bleeding returns and is not relieved with 20 minutes of direct pressure. Patient is advised to follow up with ENT as well as her family practitioner - Lab Data Result diagrams: 10/03/17 14:14 Lab Results 10/03/17 10/03/17 Range/Units 14:14 14:14 WBC 10.5 (3.8-10.6) k/uL RBC 3.87 (3.80-5.40) m/uL Hgb 12.2 (11.4-16.0) gm/dL Hct 37.4 (34.0-46.0) % MCV 96.5 (80.0-100.0) fL MCH 31.6 (25.0-35.0) pg MCHC 32.7 (31.0-37.0) g/dL RDW 15.9 H (11.5-15.5) % Plt Count 307 (150-450) k/uL PT 28.1 H (9.0-12.0) sec INR 3.1 H (<1.2) APTT 34.2 H (22.0-30.0) sec Disposition Clinical Impression: Epistaxis not due to trauma Disposition: HOME SELF-CARE Condition: Good Instructions: Nosebleed (ED) Additional Instructions: Please use medication and nose clamp as discussed. Please follow-up with family doctor in the next 2 days of symptoms have not improved, please contact ENT for follow-up in problem persists. Please return to emergency room if the symptoms increase or worsen or for any other concerns. Is patient prescribed a controlled substance at d/c from ED?: No Referrals: Chalo Cm DO [Primary Care Provider] - 1-2 days Esau Gomez MD [STAFF PHYSICIAN] - 1-2 days Time of Disposition: 15:36
[2017-10-03 14:32] LABS: HCT 37.4 % (34.0-46.0); HGB 12.2 gm/dL (11.4-16.0); MCH 31.6 pg (25.0-35.0); MCHC 32.7 g/dL (31.0-37.0); MCV 96.5 fL (80.0-100.0); Mean Platelet Volume 7.5; Platelet Count 307 k/uL (150-450); RBC 3.87 m/uL (3.80-5.40); RDW 15.9 % (11.5-15.5); WBC 10.5 k/uL (3.8-10.6)
[2017-10-03 14:40] LABS: INR 3.1 (<1.2); Partial Thromboplastin Time 34.2 sec (22.0-30.0); Prothrombin Time 28.1 sec (9.0-12.0)
[2017-10-03 15:33] VITALS: BP 126/69; PULSE 71; TEMP 97
== END 2017-10-03 15:59 | disposition home or self-care (01) ==
LOC: EC 12:36
DX: R04.0 Epistaxis (principal); J44.9 Chronic obstructive pulmonary disease, unspecified; I48.91 Unspecified atrial fibrillation; E78.5 Hyperlipidemia, unspecified; I10 Essential (primary) hypertension; M19.90 Unspecified osteoarthritis, unspecified site; M10.9 Gout, unspecified; M81.0 Age-related osteoporosis without current pathological fracture; Z86.718 Personal history of other venous thrombosis and embolism; Z87.891 Personal history of nicotine dependence; Z90.49 Acquired absence of other specified parts of digestive tract; Z98.51 Tubal ligation status; Z98.890 Other specified postprocedural states; Z79.01 Long term (current) use of anticoagulants; Z79.899 Other long term (current) drug therapy; Z88.5 Allergy status to narcotic agent; Z88.8 Allergy status to other drugs, medicaments and biological substances; Z91.048 Other nonmedicinal substance allergy status
CPT/HCPCS: 36415; 85027; 85610; 85730; 99283

== ENCOUNTER 2017-10-22 23:22 | Observation (INO) | payer MEDICARE ==
--- NOTE | 2017-10-23 00:22 | ED ---
General Adult HPI - General Chief complaint: Chest Pain Stated complaint: heart racing Time Seen by Provider: 10/22/17 23:27 Source: patient, family Mode of arrival: ambulatory Limitations: no limitations - History of Present Illness Initial comments: Fabby is an 82-year-old female who lives independently, she presents to the emergency department today via private vehicle for evaluation of chest pain and palpitations. Patient reports that she underwent a cardiac evaluation earlier in the week, she states she had a stress test on Tuesday and an echo on Tuesday but has not received results of either she has scheduled follow-up with her customer marketing intern on Tuesday of this week. Patient reports that she was in her usual state of health throughout the week. She is feeling quite well today, she did perform some normal activities including cleaning her home. She states that she eat a normal diet and this evening she laid down to go to bed when she began experiencing palpitations. Patient reports that she felt as though her heart was racing and that it began beating so fast that she began to have aching in her chest. Patient reports that this went on for long enough that she became concerned and called her son so that she wanted be alone. Her son states that his mother rarely complains so when she called late at night to see she's had a chest pain he rushed over. She was still complaining of some aching in her chest when he arrives we brought her to the ER for further evaluation. Patient reports upon arrival her palpitations have subsided significantly, she is no longer having aching in her chest. The symptoms were not associated with any diaphoresis, lightheadedness or shortness of breath. Patient reports that she drinks 2 cups of coffee daily, no other caffeine intake , no dietary supplements or stimulant intake, no alcohol intake. No history of palpitations in the past. - Related Data Home Medications Medication Instructions Recorded Confirmed Bimatoprost [Lumigan .01% Ophth 1 drop BOTH EYES HS 11/07/13 10/22/17 Soln] Gabapentin [Neurontin] 600 mg PO DAILY 11/07/13 10/22/17 Isosorbide Mononitrate [Imdur] 60 mg PO QAM 11/07/13 10/22/17 Montelukast [Singulair] 10 mg PO HS 11/07/13 10/22/17 Warfarin [Coumadin] 5 mg PO SUTUWETHSA 11/07/13 10/22/17 Allopurinol [Zyloprim] 200 mg PO BID 07/09/14 10/22/17 Nitroglycerin Sl Tabs [Nitrostat] 0.4 mg SUBLINGUAL Q5M PRN 07/09/14 10/22/17 Warfarin [Coumadin] 2.5 mg PO MOFR 11/24/14 10/22/17 Budesonide [Pulmicort] 0.5 mg INHALATION RT-BID 03/29/16 10/22/17 Omeprazole 20 mg PO BID 03/29/16 10/22/17 Simvastatin [Zocor] 40 mg PO HS 03/29/16 10/22/17 Calcium Carbonate [Calcium] 600 mg PO DAILY 08/30/17 10/22/17 Cholecalciferol [Vitamin D3] 1,000 unit PO DAILY 08/30/17 10/22/17 Denosumab [Prolia] 60 mg SQ Q180D 08/30/17 10/22/17 Losartan-Hctz 50-12.5 mg [Hyzaar 1 tab PO BID 08/30/17 10/22/17 50-12.5] Multivitamins, Thera [Multivitamin 1 tab PO DAILY 08/30/17 10/22/17 (formulary)] Sucralfate [Carafate] 1 gm PO DAILY 08/30/17 10/22/17 Cefadroxil [Duricef] 500 mg PO Q12HR 10/03/17 10/22/17 Previous Rx's Medication Instructions Recorded Metoprolol Tartrate [Lopressor] 25 mg PO TID #0 04/13/16 Allergies Allergy/AdvReac Type Severity Reaction Status Date / Time LUNA Inhibitors AdvReac Cough Verified 10/22/17 23:28 codeine AdvReac Nausea Verified 10/22/17 23:28 tape Allergy Unknown Uncoded 10/22/17 23:28 Review of Systems ROS Statement: Those systems with pertinent positive or pertinent negative responses have been documented in the HPI. ROS Other: All systems not noted in ROS Statement are negative. Constitutional: Denies: fever, chills ENT: Denies: throat pain Respiratory: Denies: cough, dyspnea Cardiovascular: Reports: chest pain, palpitations. Denies: dyspnea on exertion , syncope Endocrine: Denies: fatigue Gastrointestinal: Denies: abdominal pain, nausea, vomiting Genitourinary: Denies: urgency, dysuria Musculoskeletal: Denies: back pain Skin: Denies: rash Neurological: Denies: headache Psychiatric: Denies: anxiety, depression Hematological/Lymphatic: Reports: easy bleeding, easy bruising Past Medical History Past Medical History: Asthma, COPD, Hyperlipidemia, Hypertension, Osteoarthritis (OA) Additional Past Medical History / Comment(s): Hx. gout, osteoporosis, arthritis , DVT L upper arm, "clots fast" pt states per Dr. Beatty, dermatitis, bilateral glaucoma, bradycardia- pacemaker, degenerative disc disease, cervical and back pain History of Any Multi-Drug Resistant Organisms: None Reported Past Surgical History: Adenoidectomy, Appendectomy, Cholecystectomy, Hernia Repair, Orthopedic Surgery, Pacemaker, Tonsillectomy, Tubal Ligation Additional Past Surgical History / Comment(s): Hx throat nodule removed, mole left eyelid, D&C, bilat cataracts removed . RIGHT KNEE REPLACEMENT X 2. , hiatal hernia repair, I&D L inguinal abscess, aspiration left knee 2 in August 2017. Past Anesthesia/Blood Transfusion Reactions: No Reported Reaction, Motion Sickness Type of Cardiac Device: Permanent Pacemaker Device Placement Date:: October 2012 Past Psychological History: No Psychological Hx Reported Smoking Status: Former smoker Past Alcohol Use History: None Reported Past Drug Use History: None Reported - Past Family History Father Additional Family Medical History / Comment(s): Father pulmonary fibrosis, Sister-melanoma 3 step siblings with cancer, dr beatty told patient that she just clots fast but her siblings should be tested for MUTAHON-MTHFR gene Mother Family Medical History: Cancer General Exam Limitations: no limitations General appearance: alert, in no apparent distress Head exam: Present: atraumatic, normocephalic Eye exam: Present: normal appearance, PERRL ENT exam: Present: normal exam Neck exam: Present: normal inspection Respiratory exam: Absent: respiratory distress Cardiovascular Exam: Present: regular rate, normal rhythm GI/Abdominal exam: Present: soft. Absent: distended Rectal exam: Present: deferred Extremities exam: Present: full ROM Back exam: Present: normal inspection Neurological exam: Present: alert, oriented X3 Psychiatric exam: Present: normal affect, normal mood Skin exam: Present: warm, dry, other (Small bruises on bilateral arms, patient is on Coumadin) Course Vital Signs 10/22/17 10/22/17 23:25 23:38 Temperature 97.7 F Pulse Rate 67 Pulse Rate [ 63 Pulse Oximetery ] Respiratory 20 Rate Blood Pressure 164/85 O2 Sat by Pulse 97 Oximetry EKG Findings - EKG Comments: EKG Findings:: EKG reveals a atrial paced rhythm with induction, prolonged TX, no acute ST elevations or depressions. When compared to previous EKG the paced rhythm has replaced the sinus rhythm previously noted however the patient continues to have TX prolongation. Medical Decision Making - Medical Decision Making The patient was seen and evaluated, history is obtained from the patient and son at bedside. 82-year-old female presenting with palpitations and chest pressure she describes as aching which occurred after the palpitations started Patient symptoms resolved prior to arrival She with no shortness of breath, no palpitations or tachycardia on arrival here , patient is anticoagulated on Coumadin reports she has been compliant with this medication Labs and imaging were ordered Chest x-ray is unremarkable EKG with no significant change from previous Labs reveal elevated INR at 3.2, normal troponin Considering the patient's advanced age and development of chest pain while having episodes of palpitations do feel that she should be evaluated by cardiology. Patient agreeable to staying in observation unit for evaluation by cardiology. - Lab Data Result diagrams: 10/22/17 23:45 10/22/17 23:45 Lab Results 10/22/17 10/22/17 10/22/17 Range/Units 23:45 23:45 23:45 WBC 7.4 (3.8-10.6) k/uL RBC 3.83 (3.80-5.40) m/uL Hgb 11.9 (11.4-16.0) gm/dL Hct 37.0 (34.0-46.0) % MCV 96.7 (80.0-100.0) fL MCH 31.1 (25.0-35.0) pg MCHC 32.2 (31.0-37.0) g/dL RDW 15.5 (11.5-15.5) % Plt Count 323 (150-450) k/uL Neutrophils % 63 % Lymphocytes % 21 % Monocytes % 9 % Eosinophils % 3 % Basophils % 1 % Neutrophils # 4.7 (1.3-7.7) k/uL Lymphocytes # 1.6 (1.0-4.8) k/uL Monocytes # 0.7 (0-1.0) k/uL Eosinophils # 0.2 (0-0.7) k/uL Basophils # 0.1 (0-0.2) k/uL PT (9.0-12.0) sec INR (<1.2) APTT (22.0-30.0) sec Sodium 141 (137-145) mmol/L Potassium 3.8 (3.5-5.1) mmol/L Chloride 111 H (98-107) mmol/L Carbon Dioxide 23 (22-30) mmol/L Anion Gap 7 mmol/L BUN 25 H (7-17) mg/dL Creatinine 1.10 H (0.52-1.04) mg/dL Est GFR (CKD-EPI)AfAm 55 (>60 ml/min/1.73 sqM) Est GFR (CKD-EPI)NonAf 48 (>60 ml/min/1.73 sqM) Glucose 97 (74-99) mg/dL Calcium 10.1 (8.4-10.2) mg/dL Magnesium 1.2 L (1.6-2.3) mg/dL Total Bilirubin 0.3 (0.2-1.3) mg/dL AST 27 (14-36) U/L ALT 38 (9-52) U/L Alkaline Phosphatase 96 (38-126) U/L Total Creatine Kinase 38 (30-135) U/L CK-MB (CK-2) 1.1 (0.0-2.4) ng/mL CK-MB (CK-2) Rel Index 2.9 Troponin I <0.012 (0.000-0.034) ng/mL Total Protein 6.6 (6.3-8.2) g/dL Albumin 4.0 (3.5-5.0) g/dL 10/22/17 Range/Units 23:45 WBC (3.8-10.6) k/uL RBC (3.80-5.40) m/uL Hgb (11.4-16.0) gm/dL Hct (34.0-46.0) % MCV (80.0-100.0) fL MCH (25.0-35.0) pg MCHC (31.0-37.0) g/dL RDW (11.5-15.5) % Plt Count (150-450) k/uL Neutrophils % % Lymphocytes % % Monocytes % % Eosinophils % % Basophils % % Neutrophils # (1.3-7.7) k/uL Lymphocytes # (1.0-4.8) k/uL Monocytes # (0-1.0) k/uL Eosinophils # (0-0.7) k/uL Basophils # (0-0.2) k/uL PT 30.2 H (9.0-12.0) sec INR 3.4 H (<1.2) APTT 34.8 H (22.0-30.0) sec Sodium (137-145) mmol/L Potassium (3.5-5.1) mmol/L Chloride (98-107) mmol/L Carbon Dioxide (22-30) mmol/L Anion Gap mmol/L BUN (7-17) mg/dL Creatinine (0.52-1.04) mg/dL Est GFR (CKD-EPI)AfAm (>60 ml/min/1.73 sqM) Est GFR (CKD-EPI)NonAf (>60 ml/min/1.73 sqM) Glucose (74-99) mg/dL Calcium (8.4-10.2) mg/dL Magnesium (1.6-2.3) mg/dL Total Bilirubin (0.2-1.3) mg/dL AST (14-36) U/L ALT (9-52) U/L Alkaline Phosphatase (38-126) U/L Total Creatine Kinase (30-135) U/L CK-MB (CK-2) (0.0-2.4) ng/mL CK-MB (CK-2) Rel Index Troponin I (0.000-0.034) ng/mL Total Protein (6.3-8.2) g/dL Albumin (3.5-5.0) g/dL Disposition Clinical Impression: Chest pain, Heart palpitations Disposition: ADMITTED IP TO THIS HOSP Condition: Good Referrals: Chalo Cm DO [Primary Care Provider] - 1-2 days Decision Time: 01:02
[2017-10-23 00:25] LABS: Basophils # (A) 0.1 k/uL (0-0.2); Basophils % (A) 1 %; Eosinophils # (A) 0.2 k/uL (0-0.7); Eosinophils % (A) 3 %; HGB 11.9 gm/dL (11.4-16.0); Lymphocytes # (A) 1.6 k/uL (1.0-4.8); Lymphocytes % (A) 21 %; MCH 31.1 pg (25.0-35.0); MCHC 32.2 g/dL (31.0-37.0); MCV 96.7 fL (80.0-100.0); Mean Platelet Volume 7.4; Monocytes # (A) 0.7 k/uL (0-1.0); Monocytes % (A) 9 %; Neutrophils # (A) 4.7 k/uL (1.3-7.7); Neutrophils % (A) 63 %; Platelet Count 323 k/uL (150-450); RBC 3.83 m/uL (3.80-5.40); RDW 15.5 % (11.5-15.5); WBC 7.4 k/uL (3.8-10.6)
[2017-10-23 00:33] LABS: INR 3.4 (<1.2); Partial Thromboplastin Time 34.8 sec (22.0-30.0); Prothrombin Time 30.2 sec (9.0-12.0)
[2017-10-23 00:39] LABS: Calcium 10.1 mg/dL (8.4-10.2); Magnesium 1.2 mg/dL (1.6-2.3); Potassium 3.8 mmol/L (3.5-5.1); Total Bilirubin 0.3 mg/dL (0.2-1.3); Total Protein 6.6 g/dL (6.3-8.2)
[2017-10-23 00:46] LABS: Creatine Kinase 38 U/L (30-135)
[2017-10-23] MEDS ORDERED: NITROGLYCERIN SL TABS 0.4 MG TAB SUBLINGUAL PRN (00:51)
[2017-10-23 00:59] LABS: Creatine Kinase MB 1.1 ng/mL (0.0-2.4); Troponin I <0.012 ng/mL (0.000-0.034)
--- NOTE | 2017-10-23 01:27 | XR ---
EXAMINATION TYPE: XR chest 2V DATE OF EXAM: 10/23/2017 COMPARISON: 04/12/2016 HISTORY: Chest pain TECHNIQUE: Frontal and lateral views of the chest are obtained. FINDINGS: There is no heart failure nor confluent pneumonic infiltrate. Heart size is normal. There is left axillary pacemaker with the lead tips in the right ventricle. There is some scalloping of the right hemidiaphragm. Bony thorax appears intact. IMPRESSION: No active cardiopulmonary disease. No change.
[2017-10-23 02:58] VITALS: BMI 34.3
[2017-10-23 04:17] VITALS: PULSE 69; RESP 17
[2017-10-23 06:24] LABS: Creatine Kinase 28 U/L (30-135)
[2017-10-23 06:37] LABS: Creatine Kinase MB 0.8 ng/mL (0.0-2.4); Troponin I <0.012 ng/mL (0.000-0.034)
--- NOTE | 2017-10-23 11:22 | CONS ---
CONSULTATION ATTENDING PHYSICIAN: Dr. Cm Mrs. Hanley is an 82-year-old female with known history of hypertension, paroxysmal atrial fibrillation, permanent pacemaker implantation, who is followed by Dr. Trotter on a regular basis, who presented with symptoms of palpitations. When she went to bed, she felt palpitation, was anxious and came into the emergency room. She has no symptoms of chest pain. She has no change in breathing. No dizziness. No syncope. No PND, orthopnea, or peripheral edema. She has underwent stress test and echocardiogram last year, but the results are not available. Her coronary risk factors are remarkable for the hypertension and hyperlipidemia. She is a nonsmoker and nondiabetic. MEDICATION: Include Coumadin, Carafate, Zocor 40 mg daily, singular 10 mg daily, metoprolol tartrate 25 mg 3 times a day, losartan HCT 50/12.5 mg daily, Imdur, Prolia, vitamin D, calcium, Pulmicort and Zyloprim. REVIEW OF SYSTEMS: RESPIRATORY system: No recent wheezing. No cough. No history of documented obstructive lung disease. GI system: No recent GI bleed. No peptic ulcer disease. system: No dysuria or hematuria. Nervous system: No stroke or seizure. PHYSICAL EXAMINATION: 82-year-old female, alert, oriented, in no apparent distress. Blood pressure 162/70 with a heart rate in the 60s. HEAD: Normocephalic. Eyes sclerae anicteric. Neck good upstroke. No jugular venous distention. Lungs clear to auscultation. HEART: Regular rate and rhythm, S1, S2. No S3. No rub. ABDOMEN: Soft, nontender, obese. Positive bowel sounds. No organomegaly. EXTREMITIES: No edema. Intact distal pulses. LAB DATA: Lab data revealed troponin less than 0.012 for 2 samples, BUN and creatinine 25 and 1.1. INR of 3.4, hemoglobin of 11.9. EKG reveals sinus mechanism with rare PACs with a borderline left axis deviation. Evidence left ventricular hypertrophy. Chest x-ray shows no infiltrate. IMPRESSION: 1. Symptoms of palpitation in a patient with history of paroxysmal fibrillation, anticoagulated with no evidence of recurrent atrial fibrillation at this time. 2. Hypertension. 3. Hyperlipidemia. RECOMMENDATION: From the cardiac standpoint, I will resume her present medical regimen. Increase her level of activity. If she is stable, I would expect she should be able to be discharged home and follow up as an outpatient with Dr. Trotter as scheduled this coming Tuesday to review the results of her testing. JHOANA / NOEMÍ: [id number] /
[2017-10-23] MEDS ORDERED: ISOSORBIDE MONONITRATE ER 60 MG TAB.ER.24H PO SCH (12:00)
[2017-10-23] MEDS ORDERED: CHOLECALCIFEROL 1,000 UNIT TAB PO SCH (12:00)
[2017-10-23] MEDS ORDERED: PANTOPRAZOLE 40 MG TABLET PO SCH ×2 (12:00→21:00)
[2017-10-23] MEDS ORDERED: ALLOPURINOL 100 MG TAB PO SCH ×2 (12:00→21:00)
[2017-10-23] MEDS ORDERED: METOPROLOL TARTRATE 25 MG TAB PO SCH ×2 (12:00→16:00)
[2017-10-23] MEDS ORDERED: SUCRALFATE 1 GM TAB PO SCH (12:00)
[2017-10-23] MEDS ORDERED: CALCIUM CARBONATE 500 MG CHEWABLE PO SCH (12:00)
[2017-10-23] MEDS ORDERED: GABAPENTIN 300 MG CAP PO SCH (12:00)
[2017-10-23] MEDS ORDERED: LOSARTAN-HCTZ 50-12.5 MG 1 EACH TAB PO SCH ×2 (12:00→21:00)
[2017-10-23 12:58] LABS: Creatine Kinase 34 U/L (30-135)
[2017-10-23 13:12] LABS: Creatine Kinase MB 0.8 ng/mL (0.0-2.4); Troponin I <0.012 ng/mL (0.000-0.034)
[2017-10-23 14:00] VITALS: BP 165/77; TEMP 97.6
--- NOTE | 2017-10-23 15:43 | P.HPIM ---
History of Present Illness 82-year-old female came in with compensative palpitations, and chest pressure like sensation patient had a recent stress test is negative. Patient spontaneously converted to sinus rhythm. Patient's INR is bit elevated about 3 because of which are patient's 5 mg daily Coumadin is being changed to 5 mg 5 times a week and 2.5 mg for restless rest of the 2 days in a week. And patient will need a repeat INR which is patient is chest pain-free patient denied any shortness of breath fever chills or signs or symptoms of sepsis and patient was evaluated by cardiology cleared for discharge patient is being discharged in stable medical condition to home patient is presently sinus rhythm with rare PACs not in significant A. fib even on the admission EKG. Review of Systems REVIEW OF SYSTEMS: CONSTITUTIONAL: No fever, no malaise, no fatigue. HEENT: No recent visual problems or hearing problems. Denied any sore throat. CARDIOVASCULAR: No chest pain, orthopnea, PND, no syncope. PULMONARY: No shortness of breath, no cough, no hemoptysis. GASTROINTESTINAL: No diarrhea, no nausea, no vomiting, no abdominal pain. Normoactive bowel sounds. NEUROLOGICAL: No headaches, no weakness, no numbness. HEMATOLOGICAL: Denies any bleeding or petechiae. GENITOURINARY: Denies any burning micturition, frequency, or urgency. MUSCULOSKELETAL/RHEUMATOLOGICAL: Denies any joint pain, swelling, or any muscle pain. ENDOCRINE: Denies any polyuria or polydipsia. The rest of the 14-point review of systems is negative. Past Medical History Past Medical History: Asthma, COPD, Hyperlipidemia, Hypertension, Osteoarthritis (OA) Additional Past Medical History / Comment(s): Hx. gout, osteoporosis, arthritis , DVT L upper arm, "clots fast" pt states per Dr. Beatty, dermatitis, bilateral glaucoma, bradycardia- pacemaker, degenerative disc disease, cervical and back pain History of Any Multi-Drug Resistant Organisms: None Reported Past Surgical History: Adenoidectomy, Appendectomy, Cholecystectomy, Hernia Repair, Orthopedic Surgery, Pacemaker, Tonsillectomy, Tubal Ligation Additional Past Surgical History / Comment(s): Hx throat nodule removed, mole left eyelid, D&C, bilat cataracts removed . RIGHT KNEE REPLACEMENT X 2. , hiatal hernia repair, I&D L inguinal abscess, aspiration left knee 2 in August 2017. Past Anesthesia/Blood Transfusion Reactions: No Reported Reaction Type of Cardiac Device: Permanent Pacemaker Device Placement Date:: October 2012 Smoking Status: Former smoker - Past Family History Father Additional Family Medical History / Comment(s): Father pulmonary fibrosis Mother Family Medical History: Cancer Sister(s) Additional Family Medical History / Comment(s): melanoma Medications and Allergies Home Medications Medication Instructions Recorded Confirmed Type Bimatoprost [Lumigan .01% Ophth 1 drop BOTH EYES HS 11/07/13 10/23/17 History Soln] Gabapentin [Neurontin] 600 mg PO DAILY 11/07/13 10/23/17 History Isosorbide Mononitrate [Imdur] 60 mg PO QAM 11/07/13 10/23/17 History Montelukast [Singulair] 10 mg PO HS 11/07/13 10/23/17 History Allopurinol [Zyloprim] 200 mg PO BID 07/09/14 10/23/17 History Nitroglycerin Sl Tabs [Nitrostat] 0.4 mg SUBLINGUAL Q5M PRN 07/09/14 10/23/17 History Budesonide [Pulmicort] 0.5 mg INHALATION RT-BID 03/29/16 10/23/17 History Omeprazole 20 mg PO BID 03/29/16 10/23/17 History Simvastatin [Zocor] 40 mg PO HS 03/29/16 10/23/17 History Metoprolol Tartrate [Lopressor] 25 mg PO TID #0 04/13/16 10/23/17 Rx Calcium Carbonate [Calcium] 600 mg PO DAILY 08/30/17 10/23/17 History Cholecalciferol [Vitamin D3] 1,000 unit PO DAILY 08/30/17 10/23/17 History Denosumab [Prolia] 60 mg SQ Q180D 08/30/17 10/23/17 History Losartan-Hctz 50-12.5 mg [Hyzaar 1 tab PO BID 08/30/17 10/23/17 History 50-12.5] Multivitamins, Thera [Multivitamin 1 tab PO DAILY 08/30/17 10/23/17 History (formulary)] Sucralfate [Carafate] 1 gm PO DAILY 08/30/17 10/23/17 History Warfarin [Coumadin] 2.5 mg PO MoFr@1800 tab 10/23/17 Rx Warfarin [Coumadin] 5 mg PO SuTuWeThSa@1800 tab 10/23/17 Rx Allergies Allergy/AdvReac Type Severity Reaction Status Date / Time LUNA Inhibitors AdvReac Cough Verified 10/23/17 12:11 codeine AdvReac Nausea Verified 10/23/17 12:11 tape Allergy Unknown Uncoded 10/23/17 02:50 Physical Exam Vitals: Vital Signs Temp Pulse Pulse Resp BP BP Pulse Ox 10/23/17 12:00 97.6 F 67 16 165/77 97 10/23/17 07:39 98.1 F 66 16 162/75 95 10/23/17 04:00 97.1 F L 69 17 185/82 96 10/22/17 23:38 63 10/22/17 23:25 97.7 F 67 20 164/85 97 Intake and Output 10/23/17 10/23/17 10/23/17 06:59 14:59 22:59 Intake Total 240 Balance 240 Intake: Oral 240 Other: Voiding Method Toilet Toilet # Voids 0 Weight 96.5 kg PHYSICAL EXAMINATION: GENERAL: The patient is alert and oriented x3, not in any acute distress. Well developed, well nourished. HEENT: Pupils are round and equally reacting to light. EOMI. No scleral icterus. No conjunctival pallor. Normocephalic, atraumatic. No pharyngeal erythema. No thyromegaly. CARDIOVASCULAR: S1 and S2 present. No murmurs, rubs, or gallops. PULMONARY: Chest is clear to auscultation, no wheezing or crackles. ABDOMEN: Soft, nontender, nondistended, normoactive bowel sounds. No palpable organomegaly. MUSCULOSKELETAL: No joint swelling or deformity. EXTREMITIES: No cyanosis, clubbing, or pedal edema. NEUROLOGICAL: Gross neurological examination did not reveal any focal deficits. SKIN: No rashes. Results CBC & Chem 7: 10/22/17 23:45 10/22/17 23:45 Labs: Abnormal Lab Results - Last 24 Hours (Table) 10/22/17 10/22/17 10/23/17 Range/Units 23:45 23:45 05:20 PT 30.2 H (9.0-12.0) sec INR 3.4 H (<1.2) APTT 34.8 H (22.0-30.0) sec Chloride 111 H (98-107) mmol/L BUN 25 H (7-17) mg/dL Creatinine 1.10 H (0.52-1.04) mg/dL Magnesium 1.2 L (1.6-2.3) mg/dL Total Creatine Kinase 28 L (30-135) U/L Thrombosis Risk Factor Assmnt - Choose All That Apply Any of the Below Risk Factors Present?: Yes Each Factor Represents 1 point: Obesity (BMI >25) Each Risk Factor Represents 3 Points: Age 75 years or older, History of DVT/PE Other congenital or acquired thrombophilia - If yes, enter type in comment: No Thrombosis Risk Factor Assessment Total Risk Factor Score: 7 Thrombosis Risk Factor Assessment Level: High Risk Assessment and Plan Plan: -Palpitations: Patient had mostly PACs but does have history of atrial fibrillation so further but cannot further management as mentioned above no change in rate control medications are being made at this time -Hypertension -Hyperlipidemia -Mild intermittent asthma without any acute exacerbation Primary osteoarthritis -Pacemaker -History of DVT in the past -Valvular proximal A. fib
--- NOTE | 2017-10-23 15:44 | P.DS ---
Providers Date of admission: 10/23/17 00:53 Attending physician: Justice Cortez Consults: 10/23/17 00:51 Consult Physician Urgent Consulting Provider: [facility] Consult Reason/Comments: established patient, chest pain/palpitations Do you want consulting provider notified?: Yes, Notify in am Primary care physician: Chalo [facility] Course: Please refer to my HPI Patient Condition at Discharge: Good Plan - Discharge Summary New Discharge Prescriptions: New Warfarin [Coumadin] 2.5 mg PO MoFr@1800 tab Warfarin [Coumadin] 5 mg PO SuTuWeThSa@1800 tab Continue Gabapentin [Neurontin] 600 mg PO DAILY Isosorbide Mononitrate [Imdur] 60 mg PO QAM Bimatoprost [Lumigan .01% Ophth Soln] 1 drop BOTH EYES HS Montelukast [Singulair] 10 mg PO HS Nitroglycerin Sl Tabs [Nitrostat] 0.4 mg SUBLINGUAL Q5M PRN PRN Reason: Chest Pain Allopurinol [Zyloprim] 200 mg PO BID Simvastatin [Zocor] 40 mg PO HS Omeprazole 20 mg PO BID Budesonide [Pulmicort] 0.5 mg INHALATION RT-BID Metoprolol Tartrate [Lopressor] 25 mg PO TID #0 Cholecalciferol [Vitamin D3] 1,000 unit PO DAILY Sucralfate [Carafate] 1 gm PO DAILY Multivitamins, Thera [Multivitamin (formulary)] 1 tab PO DAILY Denosumab [Prolia] 60 mg SQ Q180D Calcium Carbonate [Calcium] 600 mg PO DAILY Losartan-Hctz 50-12.5 mg [Hyzaar 50-12.5] 1 tab PO BID Discontinued Warfarin [Coumadin] 5 mg PO HS Cefadroxil [Duricef] 500 mg PO Q12HR Discharge Medication List Bimatoprost [Lumigan .01% Ophth Soln] 1 drop BOTH EYES HS 11/07/13 [History] Gabapentin [Neurontin] 600 mg PO DAILY 11/07/13 [History] Isosorbide Mononitrate [Imdur] 60 mg PO QAM 11/07/13 [History] Montelukast [Singulair] 10 mg PO HS 11/07/13 [History] Allopurinol [Zyloprim] 200 mg PO BID 07/09/14 [History] Nitroglycerin Sl Tabs [Nitrostat] 0.4 mg SUBLINGUAL Q5M PRN 07/09/14 [History] Budesonide [Pulmicort] 0.5 mg INHALATION RT-BID 03/29/16 [History] Omeprazole 20 mg PO BID 03/29/16 [History] Simvastatin [Zocor] 40 mg PO HS 03/29/16 [History] Metoprolol Tartrate [Lopressor] 25 mg PO TID #0 04/13/16 [Rx] Calcium Carbonate [Calcium] 600 mg PO DAILY 08/30/17 [History] Cholecalciferol [Vitamin D3] 1,000 unit PO DAILY 08/30/17 [History] Denosumab [Prolia] 60 mg SQ Q180D 08/30/17 [History] Losartan-Hctz 50-12.5 mg [Hyzaar 50-12.5] 1 tab PO BID 08/30/17 [History] Multivitamins, Thera [Multivitamin (formulary)] 1 tab PO DAILY 08/30/17 [History ] Sucralfate [Carafate] 1 gm PO DAILY 08/30/17 [History] Warfarin [Coumadin] 2.5 mg PO MoFr@1800 tab 10/23/17 [Rx] Warfarin [Coumadin] 5 mg PO SuTuWeThSa@1800 tab 10/23/17 [Rx] Follow up Appointment(s)/Referral(s): Chalo Cm DO [Primary Care Provider] - 3 Days (call tuesday for appt) Discharge Disposition: HOME SELF-CARE
[2017-10-23] MEDS ORDERED: BUDESONIDE 0.5 MG/2 ML NEBU INHALATION SCH (20:00)
[2017-10-23] MEDS ORDERED: MONTELUKAST 10 MG TAB PO SCH (21:00)
[2017-10-23] MEDS ORDERED: ATORVASTATIN 20 MG TAB PO SCH (21:00)
[2017-10-23] MEDS ORDERED: LATANOPROST 0.005% OPHTH DROPS 2.5 ML BTL BOTH EYES SCH (21:00)
[2017-10-24] MEDS ORDERED: ASPIRIN 325 MG TAB PO SCH (09:00)
[2017-10-24] MEDS ORDERED: GABAPENTIN 300 MG CAP PO SCH (09:00)
[2017-10-24] MEDS ORDERED: SUCRALFATE 1 GM TAB PO SCH (09:00)
[2017-10-24] MEDS ORDERED: CHOLECALCIFEROL 1,000 UNIT TAB PO SCH (09:00)
[2017-10-24] MEDS ORDERED: CALCIUM CARBONATE 500 MG CHEWABLE PO SCH (09:00)
[2017-10-24] MEDS ORDERED: ISOSORBIDE MONONITRATE ER 60 MG TAB.ER.24H PO SCH (09:00)
[2017-10-24] MEDS ORDERED: WARFARIN 2.5 MG TAB PO SCH (18:00)
[2017-10-25] MEDS ORDERED: WARFARIN 5 MG TAB PO SCH (18:00)
== END 2017-10-23 14:24 | disposition home or self-care (01) ==
LOC: EC 23:22 → 6SEL 10-23 00:53
PROVIDERS: ADMIT Hospitalist; ATTEND Hospitalist
DX: R07.89 Other chest pain (principal); I49.3 Ventricular premature depolarization; R79.1 Abnormal coagulation profile; J44.9 Chronic obstructive pulmonary disease, unspecified; I48.0 Paroxysmal atrial fibrillation; J45.20 Mild intermittent asthma, uncomplicated; M19.91 Primary osteoarthritis, unspecified site; I10 Essential (primary) hypertension; E78.5 Hyperlipidemia, unspecified; M19.90 Unspecified osteoarthritis, unspecified site; M81.0 Age-related osteoporosis without current pathological fracture; H40.9 Unspecified glaucoma; M54.9 Dorsalgia, unspecified; M50.30 Other cervical disc degeneration, unspecified cervical region; E66.9 Obesity, unspecified; Z68.34 Body mass index [BMI] 34.0-34.9, adult; M10.9 Gout, unspecified; Z79.01 Long term (current) use of anticoagulants; Z79.51 Long term (current) use of inhaled steroids; Z79.899 Other long term (current) drug therapy; Z88.5 Allergy status to narcotic agent; Z88.8 Allergy status to other drugs, medicaments and biological substances; Z91.048 Other nonmedicinal substance allergy status; Z95.0 Presence of cardiac pacemaker; Z90.49 Acquired absence of other specified parts of digestive tract; Z98.42 Cataract extraction status, left eye; Z98.41 Cataract extraction status, right eye; Z96.651 Presence of right artificial knee joint; Z90.89 Acquired absence of other organs; Z87.891 Personal history of nicotine dependence; Z86.718 Personal history of other venous thrombosis and embolism; Z80.8 Family history of malignant neoplasm of other organs or systems; Z83.6 Family history of other diseases of the respiratory system
CPT/HCPCS: 99285 ×2; 36415; 93005; 80053; 84443; 82550; 82553; 83735; 84484; 85025; 85610; 85730; 71046; G0378

== ENCOUNTER → 2018-01-12 | Outpatient (CLI) | payer MEDICARE ==
[~2018-01-12] MED LIST changes: -DENOSUMAB 60 MG/ML 1 ML SYRINGE SQ NR; +DENOSUMAB 60 MG/ML 1 ML SYRINGE SQ ONE
[2018-01-12 10:37] VITALS: BP 131/78; PULSE 68; RESP 16; TEMP 98
== END | disposition home or self-care (01) ==
LOC: PROCWHC3 10:16
PROVIDERS: ATTEND Family Medicine
DX: M81.0 Age-related osteoporosis without current pathological fracture (principal)
CPT/HCPCS: 96372; J0897

== ENCOUNTER → 2018-02-28 | Outpatient (CLI) | payer MEDICARE ==
[2018-02-28 12:27] LABS: HCT 38.4 % (34.0-46.0); HGB 12.7 gm/dL (11.4-16.0); MCH 32.3 pg (25.0-35.0); MCHC 33.1 g/dL (31.0-37.0); MCV 97.5 fL (80.0-100.0); Mean Platelet Volume 7.1; Platelet Count 278 k/uL (150-450); RBC 3.94 m/uL (3.80-5.40); RDW 14.5 % (11.5-15.5); WBC 8.6 k/uL (3.8-10.6)
[2018-02-28 17:49] LABS: Anion Gap 6.4 mmol/L (4.00-12.00); Carbon Dioxide 27.6 mmol/L (21.6-31.8)
== END | disposition home or self-care (01) ==
LOC: LABPAT 11:16
PROVIDERS: ATTEND Internal Medicine Interventional Cardiology
DX: Z01.812 Encounter for preprocedural laboratory examination (principal); E78.1 Pure hyperglyceridemia; I10 Essential (primary) hypertension; I25.10 Atherosclerotic heart disease of native coronary artery without angina pectoris
CPT/HCPCS: 36415; 80051; 82565; 84520; 85027

== ENCOUNTER → 2018-07-17 | Outpatient (CLI) | payer MEDICARE ==
[2018-07-17 13:04] VITALS: BP 119/73; PULSE 63; RESP 16; TEMP 97.4
== END ==
LOC: PROCWHC3 12:48
PROVIDERS: ATTEND Family Medicine
DX: M81.0 Age-related osteoporosis without current pathological fracture (principal)
CPT/HCPCS: 96372; J0897

== ENCOUNTER 2018-11-22 14:39 | Emergency (ER) | payer MEDICARE ==
[2018-11-22 15:08] VITALS: RESP 18
[2018-11-22 16:30] LABS: Anisocytosis Slight; Basophils % (A) 1 %; Eosinophils # (A) 0.2 k/uL (0-0.7); Eosinophils % (A) 3 %; HCT 32.8 % (34.0-46.0); HGB 10.7 gm/dL (11.4-16.0); Lymphocytes % (A) 13 %; MCH 32.1 pg (25.0-35.0); MCHC 32.7 g/dL (31.0-37.0); MCV 98.2 fL (80.0-100.0); Macrocytosis Slight; Mean Platelet Volume 7.4; Monocytes # (A) 0.5 k/uL (0-1.0); Monocytes % (A) 7 %; Neutrophils # (A) 5.6 k/uL (1.3-7.7); Neutrophils % (A) 74 %; Platelet Count 438 k/uL (150-450); RBC 3.34 m/uL (3.80-5.40); RDW 16.2 % (11.5-15.5); WBC 7.5 k/uL (3.8-10.6)
[2018-11-22] MEDS ORDERED: MORPHINE SULFATE 2 MG/ML SYRINGE IVP STA (16:37)
[2018-11-22] MEDS ORDERED: DIPH,PERTUS(ACELL)TETVAC-LF 0.5 ML VIAL IM ONE (16:37)
[2018-11-22 16:38] LABS: INR 2.5 (<1.2); Partial Thromboplastin Time 41.5 sec (22.0-30.0); Prothrombin Time 24.5 sec (9.0-12.0)
--- NOTE | 2018-11-22 16:42 | ED ---
General Adult HPI - General Chief complaint: Extremity Injury, Lower Stated complaint: Infection on leg Time Seen by Provider: 11/22/18 15:28 Source: patient, RN notes reviewed, old records reviewed Mode of arrival: wheelchair Limitations: no limitations - History of Present Illness Initial comments: 83-year-old female patient anticoagulated on Coumadin for previous DVT approximately 5 years ago presents to ED for left lower extremity pain and discomfort. Patient reports that she has an abrasion on the posterior aspect of her left calf from when she bumped it on her scooter. Patient reports that she has had pain in her posterior left calf as well as her groin region on the left side. Patient denies any chest pain or shortness of breath. Patient reports that this abrasion occurred approximately one week ago. Denies any other complaints at this time. Deneis any systemic signs of infection. Systemic: Pt denies fatigue, fever/chills, rash. Pt denies weakness, night sweats, weight loss. Neuro: Pt denies headache, visual disturbances, syncope or pre-syncope. HEENT: Pt denies ocular discharge or irritation, otalgia, rhinorrhea, pharyngitis or notable lymphadenopathy. Cardiopulmonary: Pt denies chest pain, SOB, heart palpitations, dyspnea on exertion. Abdominal/GI: Pt denies abdominal pain, n/v/d. : Pt denies dysuria, burning w/ urination, frequency/urgency. Denies new onset urinary or bowel incontinence. MSK: Pt denies myalgia, loss of strength or function in extremities. Neuro: Pt denies new onset weakness, paresthesias. - Related Data Home Medications Medication Instructions Recorded Confirmed Bimatoprost [Lumigan .01% Ophth 1 drop BOTH EYES HS 11/07/13 11/22/18 Soln] Gabapentin [Neurontin] 600 mg PO BID 11/07/13 11/22/18 Isosorbide Mononitrate [Imdur] 60 mg PO DAILY 11/07/13 11/22/18 Montelukast [Singulair] 10 mg PO HS 11/07/13 11/22/18 Allopurinol [Zyloprim] 100 mg PO BID 07/09/14 11/22/18 Budesonide [Pulmicort] 0.5 mg INHALATION RT-BID 03/29/16 11/22/18 Omeprazole 20 mg PO BID 03/29/16 11/22/18 Simvastatin [Zocor] 40 mg PO HS 03/29/16 11/22/18 Sucralfate [Carafate] 1 gm PO DAILY 08/30/17 11/22/18 ALPRAZolam [Xanax] 0.25 mg PO HS PRN 07/17/18 11/22/18 Folic Acid 1 mg PO DAILY 07/17/18 11/22/18 Methotrexate Sodium [Methotrexate] 17.5 mg PO MO 07/17/18 11/22/18 DULoxetine HCL [Cymbalta] 60 mg PO HS 11/22/18 11/22/18 Hydrochlorothiazide [Hydrodiuril] 12.5 mg PO BID 11/22/18 11/22/18 Losartan [Cozaar] 50 mg PO BID 11/22/18 11/22/18 Warfarin [Coumadin] 2.5 mg PO MO@1800 11/22/18 11/22/18 Warfarin [Coumadin] 5 mg PO SUTUWETHFRSA@1800 11/22/18 11/22/18 Previous Rx's Medication Instructions Recorded Metoprolol Tartrate [Lopressor] 25 mg PO TID #0 04/13/16 Cephalexin [Keflex] 500 mg PO Q6HR 10 Days #40 cap 11/22/18 Allergies Allergy/AdvReac Type Severity Reaction Status Date / Time LUNA Inhibitors AdvReac Cough Verified 11/22/18 15:40 codeine AdvReac Nausea Verified 11/22/18 15:40 tape Allergy Unknown Uncoded 07/17/18 12:52 Review of Systems ROS Statement: Those systems with pertinent positive or pertinent negative responses have been documented in the HPI. ROS Other: All systems not noted in ROS Statement are negative. Past Medical History Past Medical History: Asthma, COPD, Hyperlipidemia, Hypertension, Osteoarthritis (OA) Additional Past Medical History / Comment(s): Hx. gout, osteoporosis, arthritis, DVT L upper arm, "clots fast" pt states per Dr. Beatty, dermatitis, bilateral glaucoma, bradycardia- pacemaker, degenerative disc disease, cervical and back pain, History of Any Multi-Drug Resistant Organisms: None Reported Past Surgical History: Adenoidectomy, Appendectomy, Cholecystectomy, Hernia Repair, Orthopedic Surgery, Pacemaker, Tonsillectomy, Tubal Ligation Additional Past Surgical History / Comment(s): Hx throat nodule removed, mole left eyelid, D&C, bilat cataracts removed . RIGHT KNEE REPLACEMENT X 2. , hiatal hernia repair, I&D L inguinal abscess. Past Anesthesia/Blood Transfusion Reactions: No Reported Reaction, Motion Sickness Type of Cardiac Device: Permanent Pacemaker Device Placement Date:: October 2012 Past Psychological History: No Psychological Hx Reported Smoking Status: Former smoker Past Alcohol Use History: None Reported Past Drug Use History: None Reported - Past Family History Father Additional Family Medical History / Comment(s): Father pulmonary fibrosis Mother Family Medical History: Cancer Sister(s) Additional Family Medical History / Comment(s): melanoma General Exam - General Exam Comments Initial Comments: Constitutional: NAD, AOX3, Pt has pleasant affect. HEENT: NC/AT, trachea midline, neck supple, no lymphadenopathy. Posterior pharynx non erythematous, without exudates. External ears appear normal, without discharge. Mucous membranes moist. Eyes PERRLA, EOM intact. There is no scleral icterus. No pallor noted. Cardiopulmonary: RRR, no murmurs, rubs or gallops, no JVD noted. Lungs CTAB in anterior and posterior monique. No peripheral edema. Abdominal exam: Abdomen soft and non-distended. Abdomen non-tender to palpation in all 4 quadrants. Bowel sounds active in LLQ. No hepatosplenomegaly. No ecchymosis Neuro: CN II-XII grossly intact. No nuchal rigidity. No raccon eyes, no sultana sign, no hemotympanum. No cervical spinal tenderness. MSK: Left posterior calf mildly tender to palpation, Homans sign negative. Right posterior calf nontender to palpation, Homans sign negative. Distal pulses intact and equal. Abrasion mild amount of erythema around abrasion, no streaking, no fluctuance. Sensation intact in upper and lower extremities. Full active ROM in upper and lower extremities, 5/5 stregnth. Limitations: no limitations Course Vital Signs 11/22/18 11/22/18 15:01 17:00 Temperature 98.6 F 97.9 F Pulse Rate 74 73 Respiratory 18 18 Rate Blood Pressure 133/74 110/55 O2 Sat by Pulse 96 98 Oximetry Medical Decision Making - Medical Decision Making 83-year-old female patient anticoagulated on Coumadin for previous DVT approximately 5 years ago presents to ED for left lower extremity pain and disc omfort. Patient reports that she has an abrasion on the posterior aspect of her left calf from when she bumped it on her scooter. Patient reports that she has had pain in her posterior left calf as well as her groin region on the left side. Patient denies any chest pain or shortness of breath. Patient reports that this abrasion occurred approximately one week ago. Denies any other complaints at this time. Deneis any systemic signs of infection. Pt VSS, afebrile. Physical exam displayed: Left posterior calf mildly tender to palpation, Homans sign negative. Right posterior calf nontender to palpation, Homans sign negative. Distal pulses intact and equal. Abrasion mild amount of erythema around abrasion, no streaking, no fluctuance. Sensation intact in upper and lower extremities. Full active ROM in upper and lower extremities, 5/5 stregnth. Laboratory investigations noncompressive, patient therapeutic INR. Her son negative for DVT, patient discharged with Keflex for sialitis, close outpatient follow-up with primary care provider, return precautions discussed, case discussed with Dr. Pascal. - Lab Data Result diagrams: 11/22/18 16:25 11/22/18 16:25 Lab Results 11/22/18 11/22/18 11/22/18 Range/Units 16:25 16:25 16:25 WBC 7.5 (3.8-10.6) k/uL RBC 3.34 L (3.80-5.40) m/uL Hgb 10.7 L (11.4-16.0) gm/dL Hct 32.8 L (34.0-46.0) % MCV 98.2 (80.0-100.0) fL MCH 32.1 (25.0-35.0) pg MCHC 32.7 (31.0-37.0) g/dL RDW 16.2 H (11.5-15.5) % Plt Count 438 (150-450) k/uL Neutrophils % 74 % Lymphocytes % 13 % Monocytes % 7 % Eosinophils % 3 % Basophils % 1 % Neutrophils # 5.6 (1.3-7.7) k/uL Lymphocytes # 1.0 (1.0-4.8) k/uL Monocytes # 0.5 (0-1.0) k/uL Eosinophils # 0.2 (0-0.7) k/uL Basophils # 0.0 (0-0.2) k/uL Anisocytosis Slight Macrocytosis Slight PT 24.5 H (9.0-12.0) sec INR 2.5 H (<1.2) APTT 41.5 H (22.0-30.0) sec Sodium 138 (137-145) mmol/L Potassium 3.7 (3.5-5.1) mmol/L Chloride 105 (98-107) mmol/L Carbon Dioxide 27 (22-30) mmol/L Anion Gap 6 mmol/L BUN 36 H (7-17) mg/dL Creatinine 0.89 (0.52-1.04) mg/dL Est GFR (CKD-EPI)AfAm 70 (>60 ml/min/1.73 sqM) Est GFR (CKD-EPI)NonAf 61 (>60 ml/min/1.73 sqM) Glucose 98 (74-99) mg/dL Calcium 9.7 (8.4-10.2) mg/dL Total Bilirubin 0.4 (0.2-1.3) mg/dL AST 28 (14-36) U/L ALT 34 (9-52) U/L Alkaline Phosphatase 110 (38-126) U/L Total Protein 6.3 (6.3-8.2) g/dL Albumin 3.5 (3.5-5.0) g/dL Disposition Clinical Impression: Cellulitis, Myalgia Disposition: HOME SELF-CARE Condition: Stable Instructions (If sedation given, give patient instructions): Cellulitis (ED) Additional Instructions: Patient to adhere to previously discussed treatment plan and will take medication(s) as directed. Patient to follow up with PCP in 1-2 days. Patient to return to ED if symptoms do not improve. Prescriptions: Cephalexin [Keflex] 500 mg PO Q6HR 10 Days #40 cap Is patient prescribed a controlled substance at d/c from ED?: No Referrals: Chalo Cm DO [Primary Care Provider] - 1-2 days
[2018-11-22 16:49] LABS: Albumin 3.5 g/dL (3.5-5.0); Calcium 9.7 mg/dL (8.4-10.2); Potassium 3.7 mmol/L (3.5-5.1); Total Bilirubin 0.4 mg/dL (0.2-1.3); Total Protein 6.3 g/dL (6.3-8.2)
[2018-11-22] MEDS ORDERED: CEPHALEXIN 500MG STARTER PACK 4 CAP BTL PO STA (17:20)
[2018-11-22] MEDS ORDERED: CEPHALEXIN 500 MG CAP PO STA (17:20)
--- NOTE | 2018-11-22 17:20 | US ---
EXAMINATION TYPE: US venous doppler duplex LE LT DATE OF EXAM: 11/22/2018 5:06 PM COMPARISON: NONE CLINICAL HISTORY: Pain. SIDE PERFORMED: Left TECHNIQUE: The lower extremity deep venous system is examined utilizing real time linear array sonog yissel with graded compression, doppler sonography and color-flow sonography. VESSELS IMAGED: External Iliac Vein (EIV) Common Femoral Vein Deep Femoral Vein Greater Saphenous Vein * Femoral Vein Popliteal Vein Small Saphenous Vein * Proximal Calf Veins (* superficial vessels) Left Leg: Negative for DVT IMPRESSION: Normal left leg duplex venous sonogram.
[2018-11-22] MEDS ORDERED: ACET/COD 300 MG/30 MG STARTER PACK 6 TAB BTL PO STA (17:26)
[2018-11-22] MEDS ORDERED: MORPHINE SULFATE 2 MG/ML SYRINGE IM STA (17:50)
[2018-11-22 17:55] VITALS: BP 110/55; PULSE 73; TEMP 97.9
== END 2018-11-22 17:55 | disposition home or self-care (01) ==
LOC: EC 14:39
DX: L03.116 Cellulitis of left lower limb (principal); M79.10 Myalgia, unspecified site; S80.812A Abrasion, left lower leg, initial encounter; R10.32 Left lower quadrant pain; J44.9 Chronic obstructive pulmonary disease, unspecified; E78.5 Hyperlipidemia, unspecified; I10 Essential (primary) hypertension; M10.9 Gout, unspecified; H40.9 Unspecified glaucoma; M19.90 Unspecified osteoarthritis, unspecified site; Z86.718 Personal history of other venous thrombosis and embolism; Z23 Encounter for immunization; Z95.0 Presence of cardiac pacemaker; Z96.651 Presence of right artificial knee joint; Z87.891 Personal history of nicotine dependence; Z79.51 Long term (current) use of inhaled steroids; Z79.01 Long term (current) use of anticoagulants; Z79.899 Other long term (current) drug therapy; Z88.8 Allergy status to other drugs, medicaments and biological substances; Z88.5 Allergy status to narcotic agent; Z91.048 Other nonmedicinal substance allergy status; W22.8XXA Striking against or struck by other objects, initial encounter; Z53.8 Procedure and treatment not carried out for other reasons
CPT/HCPCS: 36415; 80053; 85025; 85610; 85730; 90471; 90715; 99284

== ENCOUNTER → 2019-01-23 | Outpatient (CLI) | payer MEDICARE ==
[2019-01-23 14:04] VITALS: BP 122/58; PULSE 63; RESP 16; TEMP 97.8
== END | disposition home or self-care (01) ==
LOC: PROCWHC3 13:30
PROVIDERS: ATTEND Family Medicine
DX: M81.0 Age-related osteoporosis without current pathological fracture (principal)
CPT/HCPCS: 96372; J0897

== ENCOUNTER 2019-06-10 16:58 | Emergency (ER) | payer MEDICARE ==
[2019-06-10 17:04] VITALS: BP 136/79; PULSE 75; RESP 20; TEMP 97.9
--- NOTE | 2019-06-10 17:26 | ED ---
General Adult HPI - General Chief complaint: Skin/Abscess/Foreign Body Stated complaint: Left Arm Laceration Time Seen by Provider: 06/10/19 17:04 Source: patient, RN notes reviewed Mode of arrival: ambulatory Limitations: no limitations - History of Present Illness Initial comments: Patient is a pleasant 83-year-old female presenting to the emergency Department with skin tears the left arm. Incident occurred 8 days ago. Patient fell and struck a railing. Patient has been gently washing it and using some Neosporin ointment. Patient has noticed some mild redness over the past day to 2. No history of similar symptoms previously. No other area of injury or concern. Last immunization of tetanus was less than one year - Related Data Home Medications Medication Instructions Recorded Confirmed Bimatoprost [Lumigan .01% Ophth 1 drop BOTH EYES HS 11/07/13 01/23/19 Soln] Gabapentin [Neurontin] 600 mg PO BID 11/07/13 01/23/19 Isosorbide Mononitrate [Imdur] 60 mg PO DAILY 11/07/13 01/23/19 Montelukast [Singulair] 10 mg PO HS 11/07/13 01/23/19 Allopurinol [Zyloprim] 100 mg PO BID 07/09/14 01/23/19 Budesonide [Pulmicort] 0.5 mg INHALATION RT-BID 03/29/16 01/23/19 Omeprazole 20 mg PO BID 03/29/16 01/23/19 Simvastatin [Zocor] 40 mg PO HS 03/29/16 01/23/19 Sucralfate [Carafate] 1 gm PO DAILY 08/30/17 01/23/19 ALPRAZolam [Xanax] 0.25 mg PO HS PRN 07/17/18 01/23/19 Folic Acid 1 mg PO DAILY 07/17/18 01/23/19 Methotrexate Sodium [Methotrexate] 17.5 mg PO MO 07/17/18 01/23/19 DULoxetine HCL [Cymbalta] 60 mg PO HS 11/22/18 01/23/19 Hydrochlorothiazide [Hydrodiuril] 12.5 mg PO BID 11/22/18 01/23/19 Losartan [Cozaar] 50 mg PO BID 11/22/18 01/23/19 Warfarin [Coumadin] 2.5 mg PO MO@1800 11/22/18 01/23/19 Warfarin [Coumadin] 5 mg PO SUTUWETHFRSA@1800 11/22/18 01/23/19 Previous Rx's Medication Instructions Recorded Metoprolol Tartrate [Lopressor] 25 mg PO TID #0 04/13/16 Cephalexin [Keflex] 500 mg PO Q6HR 10 Days #40 cap 11/22/18 Cephalexin [Keflex] 500 mg PO TID #21 cap 06/10/19 Mupirocin 2% Oint [Bactroban 2% 1 applic TOPICAL BID #30 gm 06/10/19 Oint] Allergies Allergy/AdvReac Type Severity Reaction Status Date / Time LUNA Inhibitors AdvReac Cough Verified 06/10/19 17:04 codeine AdvReac Nausea Verified 06/10/19 17:04 tape Allergy Unknown Uncoded 06/10/19 17:04 Review of Systems ROS Statement: Those systems with pertinent positive or pertinent negative responses have been documented in the HPI. ROS Other: All systems not noted in ROS Statement are negative. Constitutional: Denies: fever Eyes: Denies: eye pain ENT: Denies: ear pain Respiratory: Denies: cough Cardiovascular: Denies: chest pain Endocrine: Denies: fatigue Gastrointestinal: Denies: abdominal pain Genitourinary: Denies: dysuria Musculoskeletal: Denies: back pain Skin: Reports: rash Neurological: Denies: weakness Past Medical History Past Medical History: Asthma, COPD, Deep Vein Thrombosis (DVT), Hyperlipidemia, Hypertension, Osteoarthritis (OA), Skin Disorder Additional Past Medical History / Comment(s): Hx. gout, osteoporosis, arthritis, DVT L upper arm, dermatitis, bilateral glaucoma, bradycardia- pacemaker, degenerative disc disease, cervical and back pain, History of Any Multi-Drug Resistant Organisms: None Reported Past Surgical History: Adenoidectomy, Appendectomy, Cholecystectomy, Hernia Repair, Orthopedic Surgery, Pacemaker, Tonsillectomy, Tubal Ligation Additional Past Surgical History / Comment(s): Hx throat nodule removed, mole left eyelid, D&C, bilat cataracts removed . RIGHT KNEE REPLACEMENT X 2. , hiatal hernia repair, I&D L inguinal abscess. Past Anesthesia/Blood Transfusion Reactions: No Reported Reaction, Motion Sickness Type of Cardiac Device: Permanent Pacemaker Device Placement Date:: October 2012 Past Psychological History: No Psychological Hx Reported Smoking Status: Former smoker Past Alcohol Use History: None Reported Past Drug Use History: None Reported - Past Family History Father Additional Family Medical History / Comment(s): Father pulmonary fibrosis Mother Family Medical History: Cancer Sister(s) Additional Family Medical History / Comment(s): melanoma General Exam Limitations: no limitations General appearance: alert, in no apparent distress Head exam: Present: normocephalic Eye exam: Present: normal appearance Respiratory exam: Present: normal lung sounds bilaterally Cardiovascular Exam: Present: regular rate, normal rhythm Extremities exam: Present: other (Left forearm with approximately 5 cm skin tear. There is minimal surrounding erythema. Distally the extremity is neurovascularly intact) Neurological exam: Present: alert Psychiatric exam: Present: normal affect, normal mood Skin exam: Present: erythema (Surrounding skin tear) Course Vital Signs 06/10/19 17:00 Temperature 97.9 F Pulse Rate 75 Respiratory 20 Rate Blood Pressure 136/79 O2 Sat by Pulse 96 Oximetry Procedures - Procedures Initial comment: Verbal informed consent given. Timeout done. Skin debridement: Area was cleansed with water and gauze. Small amount of skin was dried and using forceps and scissors. Wound was dressed. No Complication. Disposition Clinical Impression: Cellulitis Disposition: HOME SELF-CARE Condition: Stable Instructions (If sedation given, give patient instructions): Cellulitis (ED) Additional Instructions: Please follow-up with primary care physician in the next couple of days for recheck. Twice daily wash arm with soap and water, apply antibiotic ointment, and bandage. Return for fevers, increased pain or redness or swelling, worsening symptoms or other concerns. Prescription sent to [facility] on Prescriptions: Mupirocin 2% Oint [Bactroban 2% Oint] 1 applic TOPICAL BID #30 gm Cephalexin [Keflex] 500 mg PO TID #21 cap Is patient prescribed a controlled substance at d/c from ED?: No Referrals: Chalo Cm DO [Primary Care Provider] - 1-2 days Time of Disposition: 17:26
[2019-06-10] MEDS ORDERED: CEPHALEXIN 500MG STARTER PACK 4 CAP BTL PO STA (17:28)
== END 2019-06-10 17:45 | disposition home or self-care (01) ==
LOC: EC 16:58
DX: L03.114 Cellulitis of left upper limb (principal); S41.112A Laceration without foreign body of left upper arm, initial encounter; E78.5 Hyperlipidemia, unspecified; I10 Essential (primary) hypertension; J44.9 Chronic obstructive pulmonary disease, unspecified; M10.9 Gout, unspecified; M19.90 Unspecified osteoarthritis, unspecified site; M81.0 Age-related osteoporosis without current pathological fracture; H40.9 Unspecified glaucoma; Z79.01 Long term (current) use of anticoagulants; Z79.899 Other long term (current) drug therapy; Z88.5 Allergy status to narcotic agent; Z91.048 Other nonmedicinal substance allergy status; Z88.8 Allergy status to other drugs, medicaments and biological substances; Z96.653 Presence of artificial knee joint, bilateral; Z86.718 Personal history of other venous thrombosis and embolism; Z95.0 Presence of cardiac pacemaker; Z87.891 Personal history of nicotine dependence; Z98.890 Other specified postprocedural states; W18.09XA Striking against other object with subsequent fall, initial encounter; Y92.69 Other specified industrial and construction area as the place of occurrence of the external cause
CPT/HCPCS: 11042; 99282

== ENCOUNTER → 2019-09-13 | Outpatient (CLI) | payer MEDICARE ==
[~2019-09-13] MED LIST changes: +DENOSUMAB 60 MG/ML 1 ML SYRINGE SQ NR
[2019-09-13 10:20] VITALS: BP 138/79; PULSE 62; RESP 16; TEMP 98.1
== END | disposition home or self-care (01) ==
LOC: PROCWHC3 10:01
PROVIDERS: ATTEND Family Medicine
DX: M81.0 Age-related osteoporosis without current pathological fracture (principal)
CPT/HCPCS: 96372; J0897

== ENCOUNTER 2019-12-31 17:14 | Emergency (ER) | payer OTHER, MEDICARE ==
[2019-12-31 17:22] VITALS: RESP 16; TEMP 97
[2019-12-31 18:33] LABS: INR 2.7 (<1.2); Partial Thromboplastin Time 37.7 sec (22.0-30.0)
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
[2019-12-31 19:48] VITALS: BP 148/81; PULSE 67
== END 2019-12-31 19:55 | disposition home or self-care (01) ==
LOC: EC 17:14
DX: S46.912A Strain of unspecified muscle, fascia and tendon at shoulder and upper arm level, left arm, initial encounter (principal); J44.9 Chronic obstructive pulmonary disease, unspecified; E78.5 Hyperlipidemia, unspecified; I10 Essential (primary) hypertension; M19.90 Unspecified osteoarthritis, unspecified site; Z95.0 Presence of cardiac pacemaker; Z79.51 Long term (current) use of inhaled steroids; Z79.899 Other long term (current) drug therapy; Z79.01 Long term (current) use of anticoagulants; Z86.718 Personal history of other venous thrombosis and embolism; Z88.5 Allergy status to narcotic agent; Z88.8 Allergy status to other drugs, medicaments and biological substances; Z91.048 Other nonmedicinal substance allergy status; Z98.42 Cataract extraction status, left eye; Z98.41 Cataract extraction status, right eye; Z96.651 Presence of right artificial knee joint; V43.52XA Car driver injured in collision with other type car in traffic accident, initial encounter; Y93.89 Activity, other specified; Y92.410 Unspecified street and highway as the place of occurrence of the external cause; Y99.9 Unspecified external cause status
CPT/HCPCS: 36415; 70450; 72125; 85610; 85730; 99285

== ENCOUNTER 2020-01-27 08:53 | Emergency (ER) | payer MEDICARE ==
[2020-01-27 08:59] VITALS: RESP 18
[2020-01-27] MEDS ORDERED: HYDROmorphone 1 MG/ML 1 ML SYRINGE IM STA (09:10)
--- NOTE | 2020-01-27 09:44 | ED ---
Extremity Problem HPI - General Chief complaint: Extremity Problem,Nontraumatic Stated complaint: L Wrist Injury Time Seen by Provider: 01/27/20 09:01 Source: patient, RN notes reviewed Mode of arrival: wheelchair Limitations: physical limitation - History of Present Illness Initial comments: This an 84-year-old female presents emergency Department with chief complaint of left wrist pain. Patient states that woke her up around 2:30 with severe pain. Patient states that she tripped a few days ago of her door wall and caught herself with her left arm states that she did not have this pain but it was sore. Patient states that she wear brace on her last night to help with symptoms. It is better once elevated. She has any discoloration significant swelling fevers or chills. She has meant that she has rheumatoid arthritis and her wrists are usually mildly swollen. Patient denies upper arm pain, chest pain, shortness of breath - Related Data Home Medications Medication Instructions Recorded Confirmed Bimatoprost [Lumigan .01% Ophth 1 drop BOTH EYES HS 11/07/13 01/27/20 Soln] Gabapentin [Neurontin] 600 mg PO BID 11/07/13 01/27/20 Isosorbide Mononitrate [Imdur] 60 mg PO DAILY 11/07/13 01/27/20 Montelukast [Singulair] 10 mg PO HS 11/07/13 01/27/20 allopurinoL [Zyloprim] 100 mg PO BID 07/09/14 01/27/20 Budesonide [Pulmicort] 0.5 mg INHALATION RT-BID 03/29/16 01/27/20 Omeprazole 20 mg PO BID 03/29/16 01/27/20 Sucralfate [Carafate] 3 mg PO DAILY 08/30/17 01/27/20 ALPRAZolam [Xanax] 0.25 mg PO HS PRN 07/17/18 01/27/20 metHOTREXate sodium [Methotrexate] 25 mg PO FR 07/17/18 01/27/20 DULoxetine HCL [Cymbalta] 60 mg PO HS 11/22/18 01/27/20 Losartan [Cozaar] 50 mg PO DAILY 11/22/18 01/27/20 Warfarin [Coumadin] 5 mg PO SUMOTUWETHSA 11/22/18 01/27/20 Buprenorphine [Butrans 5 MCG/HR] 1 patch TRANSDERM TU 01/27/20 01/27/20 Simvastatin [Zocor] 40 mg PO HS 01/27/20 01/27/20 Warfarin [Coumadin] 2.5 mg PO FR 01/27/20 01/27/20 hydroCHLOROthiazide [Hydrodiuril] 12.5 mg PO BID 01/27/20 01/27/20 Previous Rx's Medication Instructions Recorded Metoprolol Tartrate [Lopressor] 25 mg PO TID #0 04/13/16 Cephalexin [Keflex] 500 mg PO Q6HR #28 cap 01/27/20 Allergies Allergy/AdvReac Type Severity Reaction Status Date / Time LUNA Inhibitors AdvReac Cough Verified 01/27/20 10:09 codeine AdvReac Nausea Verified 01/27/20 10:09 tape Allergy Unknown Uncoded 01/27/20 08:58 Review of Systems ROS Statement: Those systems with pertinent positive or pertinent negative responses have been documented in the HPI. ROS Other: All systems not noted in ROS Statement are negative. Past Medical History Past Medical History: Asthma, COPD, Deep Vein Thrombosis (DVT), Hyperlipidemia, Hypertension, Osteoarthritis (OA), Skin Disorder Additional Past Medical History / Comment(s): Hx. gout, osteoporosis, arthritis, DVT L upper arm, dermatitis, bilateral glaucoma, bradycardia- pacemaker, degenerative disc disease, cervical and back pain, History of Any Multi-Drug Resistant Organisms: None Reported Past Surgical History: Adenoidectomy, Appendectomy, Cholecystectomy, Hernia Repair, Orthopedic Surgery, Pacemaker, Tonsillectomy, Tubal Ligation Additional Past Surgical History / Comment(s): Hx throat nodule removed, mole left eyelid, D&C, bilat cataracts removed . RIGHT KNEE REPLACEMENT X 2. , hia taiwo hernia repair, I&D L inguinal abscess. Past Anesthesia/Blood Transfusion Reactions: No Reported Reaction, Motion Sickness Type of Cardiac Device: Permanent Pacemaker Device Placement Date:: October 2012 Past Psychological History: No Psychological Hx Reported Smoking Status: Never smoker Past Alcohol Use History: None Reported Past Drug Use History: None Reported - Past Family History Father Additional Family Medical History / Comment(s): Father pulmonary fibrosis Mother Family Medical History: Cancer Sister(s) Additional Family Medical History / Comment(s): melanoma General Exam Limitations: physical limitation General appearance: alert, in no apparent distress Head exam: Present: atraumatic, normocephalic, normal inspection Eye exam: Present: normal appearance, PERRL, EOMI. Absent: scleral icterus, conjunctival injection, periorbital swelling ENT exam: Present: normal exam, normal oropharynx, mucous membranes moist Neck exam: Present: full ROM. Absent: tenderness Respiratory exam: Present: normal lung sounds bilaterally. Absent: respiratory distress, wheezes, rales, rhonchi, stridor Cardiovascular Exam: Present: regular rate, normal rhythm, normal heart sounds. Absent: systolic murmur, diastolic murmur, rubs, gallop, clicks Extremities exam: Present: other (There is minimal swelling to the left wrist both wrists are deformed secondary to arthritis, radial pulses equal bilaterally Refill less than 2 seconds patient's pain with range of motion of the wrist there is small abrasion noted no significant erythema extending) Skin exam: Present: warm, dry, intact, normal color. Absent: rash Course Vital Signs 01/27/20 08:56 Temperature 97.6 F Pulse Rate 71 Respiratory 18 Rate Blood Pressure 154/81 O2 Sat by Pulse 96 Oximetry Medical Decision Making - Medical Decision Making 84-year-old female presents emergency from with chief complaint of left wrist pain. X-ray shows no acute changes. Patient pain may related to her rheumatoid arthritis there is small abrasion on the dorsal aspect of the wrist which also raises suspicion for infection though felt less likely. Patient will be started antibiotics, follow-up with Dr. 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 - Lab Data Result diagrams: 01/27/20 10:34 Lab Results 01/27/20 Range/Units 10:34 WBC 12.4 H (3.8-10.6) k/uL RBC 3.64 L (3.80-5.40) m/uL Hgb 12.0 (11.4-16.0) gm/dL Hct 37.5 (34.0-46.0) % MCV 102.8 H (80.0-100.0) fL MCH 32.9 (25.0-35.0) pg MCHC 32.0 (31.0-37.0) g/dL RDW 15.4 (11.5-15.5) % Plt Count 412 (150-450) k/uL Neutrophils % 84 % Lymphocytes % 9 % Monocytes % 4 % Eosinophils % 1 % Basophils % 1 % Neutrophils # 10.3 H (1.3-7.7) k/uL Lymphocytes # 1.1 (1.0-4.8) k/uL Monocytes # 0.5 (0-1.0) k/uL Eosinophils # 0.2 (0-0.7) k/uL Basophils # 0.1 (0-0.2) k/uL Hypochromasia Slight Macrocytosis Slight Disposition Clinical Impression: Left wrist pain Disposition: HOME SELF-CARE Condition: Stable Instructions (If sedation given, give patient instructions): Swollen Joint (ED) Additional Instructions: Please return to the Emergency Department if symptoms worsen or any other concerns. Prescriptions: Cephalexin [Keflex] 500 mg PO Q6HR #28 cap Is patient prescribed a controlled substance at d/c from ED?: No Referrals: Chalo Cm DO [Primary Care Provider] - 1-2 days Monique Oliveira DO [Doctor of Osteopathic Medicine] - 1-2 days Marylin Potter MD [STAFF PHYSICIAN] - 1-2 days Time of Disposition: 10:52
--- NOTE | 2020-01-27 09:47 | XR ---
EXAMINATION TYPE: XR wrist complete LT DATE OF EXAM: 01/27/2020 CLINICAL HISTORY: Pain and swelling. TECHNIQUE: Frontal, lateral and oblique images of the left wrist are obtained. COMPARISON: Left hand x-ray April 28, 2017 FINDINGS: There is no acute fracture/dislocation evident in the left wrist. Osseous structures ar e demineralized. Moderate to severe narrowing and spurring base of first metacarpal redemonstrated. M oderate to severe triscaphe joint space loss redemonstrated. Radiocarpal joint space narrowing redemo nstrated. Persistent scapholunate joint space widening. Stable volar positioning or angulation of the lunate. Mild to moderate diffuse subcutaneous edema. IMPRESSION: As above. No significant change from 2018 hand xray.
[2020-01-27 10:41] LABS: Basophils # (A) 0.1 k/uL (0-0.2); Basophils % (A) 1 %; Eosinophils # (A) 0.2 k/uL (0-0.7); Eosinophils % (A) 1 %; HCT 37.5 % (34.0-46.0); Hypochromasia Slight; Lymphocytes # (A) 1.1 k/uL (1.0-4.8); Lymphocytes % (A) 9 %; MCH 32.9 pg (25.0-35.0); MCV 102.8 fL (80.0-100.0); Macrocytosis Slight; Mean Platelet Volume 7.6; Monocytes # (A) 0.5 k/uL (0-1.0); Monocytes % (A) 4 %; Neutrophils # (A) 10.3 k/uL (1.3-7.7); Neutrophils % (A) 84 %; Platelet Count 412 k/uL (150-450); RBC 3.64 m/uL (3.80-5.40); RDW 15.4 % (11.5-15.5); WBC 12.4 k/uL (3.8-10.6)
[2020-01-27] MEDS ORDERED: DEXAMETHASONE SOD PHOSPHATE 10 MG/ML 1 ML VIAL IV STA (10:50)
[2020-01-27] MEDS ORDERED: cefTRIAXone IN SWFI 1,000 MG/10 ML SYRINGE IVP STA (10:50)
[2020-01-27] MEDS ORDERED: traMADol 50 MG STARTER PACK 3 TAB BTL PO STA (10:50)
[2020-01-27] MEDS ORDERED: HYDROmorphone 0.5 MG/0.5 ML SYRINGE IVP STA (10:50)
[2020-01-27 11:00] LABS: Potassium 3.8 mmol/L (3.5-5.1)
[2020-01-27 11:42] VITALS: BP 149/79; PULSE 62
[2020-01-27 11:43] VITALS: TEMP 98.2
== END 2020-01-27 11:30 | disposition home or self-care (01) ==
LOC: EC 08:53
DX: S60.812A Abrasion of left wrist, initial encounter (principal); I10 Essential (primary) hypertension; J44.9 Chronic obstructive pulmonary disease, unspecified; H40.9 Unspecified glaucoma; E78.5 Hyperlipidemia, unspecified; M10.9 Gout, unspecified; M19.90 Unspecified osteoarthritis, unspecified site; M54.2 Cervicalgia; M54.9 Dorsalgia, unspecified; M81.0 Age-related osteoporosis without current pathological fracture; Z79.899 Other long term (current) drug therapy; Z79.01 Long term (current) use of anticoagulants; Z79.891 Long term (current) use of opiate analgesic; Z79.51 Long term (current) use of inhaled steroids; Z88.8 Allergy status to other drugs, medicaments and biological substances; Z88.5 Allergy status to narcotic agent; Z91.048 Other nonmedicinal substance allergy status; Z86.718 Personal history of other venous thrombosis and embolism; Z96.651 Presence of right artificial knee joint; W22.8XXA Striking against or struck by other objects, initial encounter
CPT/HCPCS: 36415; 80048; 85025; 87040; 73110; 99284; 96374; 96375 ×2; 96372; J1100; J0696; J1170 ×2

== ENCOUNTER 2020-02-10 09:10 | Inpatient (IN) | payer MEDICARE ==
[2020-02-10] MEDS ORDERED: SODIUM CHLORIDE 0.9% 1,000 ML IV STA ×2 (09:47)
[2020-02-10] MEDS ORDERED: KETOROLAC 15 MG/ML 1 ML VIAL IVP STA (09:49)
--- NOTE | 2020-02-10 09:51 | ED ---
Abdominal Pain HPI - General Chief Complaint: Abdominal Pain Stated Complaint: Constipation Time Seen by Provider: 02/10/20 09:25 Source: patient, RN notes reviewed Mode of arrival: wheelchair Limitations: no limitations - History of Present Illness Initial Comments: This 84-year-old female with a prior history of cholecystectomy and appendectomy who states she's had 2 days of abdominal pain mostly lower most and the left she states she has no prior history of diverticular disease. Just the pain is sometimes sharp stabbing sometimes achy and is worse 10/10 currently she is about 5-6/10 severity. No dysuria no hematuria no overt fevers chills or sweats some nausea. He states she's had prior to this some episodes of diarrhea with alternate cycles of hard stool. No other complaints or modifying factors at this time MD Complaint: abdominal pain - Related Data Home Medications Medication Instructions Recorded Confirmed Bimatoprost [Lumigan .01% Ophth 1 drop BOTH EYES HS 11/07/13 01/27/20 Soln] Gabapentin [Neurontin] 600 mg PO BID 11/07/13 01/27/20 Isosorbide Mononitrate [Imdur] 60 mg PO DAILY 11/07/13 01/27/20 Montelukast [Singulair] 10 mg PO HS 11/07/13 01/27/20 allopurinoL [Zyloprim] 100 mg PO BID 07/09/14 01/27/20 Budesonide [Pulmicort] 0.5 mg INHALATION RT-BID 03/29/16 01/27/20 Omeprazole 20 mg PO BID 03/29/16 01/27/20 Sucralfate [Carafate] 3 mg PO DAILY 08/30/17 01/27/20 ALPRAZolam [Xanax] 0.25 mg PO HS PRN 07/17/18 01/27/20 metHOTREXate sodium [Methotrexate] 25 mg PO FR 07/17/18 01/27/20 DULoxetine HCL [Cymbalta] 60 mg PO HS 11/22/18 01/27/20 Losartan [Cozaar] 50 mg PO DAILY 11/22/18 01/27/20 Warfarin [Coumadin] 5 mg PO SUMOTUWETHSA 11/22/18 01/27/20 Buprenorphine [Butrans 5 MCG/HR] 1 patch TRANSDERM TU 01/27/20 01/27/20 Simvastatin [Zocor] 40 mg PO HS 01/27/20 01/27/20 Warfarin [Coumadin] 2.5 mg PO FR 01/27/20 01/27/20 hydroCHLOROthiazide [Hydrodiuril] 12.5 mg PO BID 01/27/20 01/27/20 Previous Rx's Medication Instructions Recorded Metoprolol Tartrate [Lopressor] 25 mg PO TID #0 04/13/16 Cephalexin [Keflex] 500 mg PO Q6HR #28 cap 01/27/20 Allergies Allergy/AdvReac Type Severity Reaction Status Date / Time LUNA Inhibitors AdvReac Cough Verified 02/10/20 09:14 codeine AdvReac Nausea Verified 02/10/20 09:14 tape Allergy Unknown Uncoded 02/10/20 09:14 Review of Systems ROS Statement: Those systems with pertinent positive or pertinent negative responses have been documented in the HPI. ROS Other: All systems not noted in ROS Statement are negative. Past Medical History Past Medical History: Asthma, COPD, Deep Vein Thrombosis (DVT), Hyperlipidemia, Hypertension, Osteoarthritis (OA), Skin Disorder Additional Past Medical History / Comment(s): Hx. gout, osteoporosis, arthritis, DVT L upper arm, dermatitis, bilateral glaucoma, bradycardia- pacemaker, degenerative disc disease, cervical and back pain, History of Any Multi-Drug Resistant Organisms: None Reported Past Surgical History: Adenoidectomy, Appendectomy, Cholecystectomy, Hernia Repair, Orthopedic Surgery, Pacemaker, Tonsillectomy, Tubal Ligation Additional Past Surgical History / Comment(s): Hx throat nodule removed, mole left eyelid, D&C, bilat cataracts removed . RIGHT KNEE REPLACEMENT X 2. , hiatal hernia repair, I&D L inguinal abscess. Past Anesthesia/Blood Transfusion Reactions: No Reported Reaction, Motion Sickness Type of Cardiac Device: Permanent Pacemaker Device Placement Date:: October 2012 Past Psychological History: No Psychological Hx Reported Smoking Status: Former smoker Past Alcohol Use History: None Reported Past Drug Use History: None Reported - Past Family History Father Additional Family Medical History / Comment(s): Father pulmonary fibrosis Mother Family Medical History: Cancer Sister(s) Additional Family Medical History / Comment(s): melanoma General Exam - General Exam Comments Initial Comments: This is a well-developed well-nourished awake alert oriented 3 female Limitations: no limitations General appearance: alert, in no apparent distress Head exam: Present: atraumatic, normocephalic, normal inspection Eye exam: Present: normal appearance, PERRL, EOMI. Absent: scleral icterus, conjunctival injection, periorbital swelling ENT exam: Present: mucous membranes dry Neck exam: Present: normal inspection. Absent: tenderness, meningismus, lymphadenopathy Respiratory exam: Present: normal lung sounds bilaterally. Absent: respiratory distress, wheezes, rales, rhonchi, stridor Cardiovascular Exam: Present: regular rate, normal rhythm, normal heart sounds. Absent: systolic murmur, diastolic murmur, rubs, gallop, clicks GI/Abdominal exam: Present: soft, tenderness (Tennis palpation along the left lower quadrant and some over the mid and right lower quadrant area. No overt guarding rebound masses or bruits however.), normal bowel sounds. Absent: distended, guarding, rebound, rigid Rectal exam: Present: deferred Extremities exam: Present: normal inspection, full ROM, normal capillary refill. Absent: tenderness, pedal edema, joint swelling, calf tenderness Back exam: Present: normal inspection Neurological exam: Present: alert, oriented X3, CN II-XII intact Psychiatric exam: Present: normal affect, normal mood Skin exam: Present: warm, dry, intact, normal color. Absent: rash Course Vital Signs 02/10/20 02/10/20 09:12 11:38 Temperature 97.0 F L Pulse Rate 53 L 66 Respiratory 18 16 Rate Blood Pressure 104/54 111/58 O2 Sat by Pulse 97 99 Oximetry Medical Decision Making - Medical Decision Making I did review the imaging and report evidence of diverticulitis with no perforation. I did discuss the case with Dr. Arellano. Also with patient she'll be admitted for IV antibiotics - Lab Data Result diagrams: 02/10/20 10:10 02/10/20 10:10 Lab Results 02/10/20 02/10/20 02/10/20 Range/Units 10:10 10:10 10:10 WBC 19.4 H (3.8-10.6) k/uL RBC 4.08 (3.80-5.40) m/uL Hgb 12.9 (11.4-16.0) gm/dL Hct 42.0 (34.0-46.0) % MCV 102.9 H (80.0-100.0) fL MCH 31.5 (25.0-35.0) pg MCHC 30.6 L (31.0-37.0) g/dL RDW 16.1 H (11.5-15.5) % Plt Count 364 (150-450) k/uL Neutrophils % 86 % Lymphocytes % 7 % Monocytes % 3 % Eosinophils % 2 % Basophils % 0 % Neutrophils # 16.7 H (1.3-7.7) k/uL Lymphocytes # 1.4 (1.0-4.8) k/uL Monocytes # 0.6 (0-1.0) k/uL Eosinophils # 0.4 (0-0.7) k/uL Basophils # 0.1 (0-0.2) k/uL Anisocytosis Slight Macrocytosis Moderate Sodium 135 L (137-145) mmol/L Potassium 4.3 (3.5-5.1) mmol/L Chloride 102 (98-107) mmol/L Carbon Dioxide 26 (22-30) mmol/L Anion Gap 7 mmol/L BUN 31 H (7-17) mg/dL Creatinine 0.91 (0.52-1.04) mg/dL Est GFR (CKD-EPI)AfAm 68 (>60 ml/min/1.73 sqM) Est GFR (CKD-EPI)NonAf 59 (>60 ml/min/1.73 sqM) Glucose 104 H (74-99) mg/dL Plasma Lactic Acid Lalit (0.7-2.0) mmol/L Calcium 9.9 (8.4-10.2) mg/dL Total Bilirubin 0.5 (0.2-1.3) mg/dL AST 33 (14-36) U/L ALT 28 (4-34) U/L Alkaline Phosphatase 105 (38-126) U/L Creatine Kinase 27 L (30-135) U/L Total Protein 6.7 (6.3-8.2) g/dL Albumin 3.8 (3.5-5.0) g/dL Amylase 88 (30-110) U/L Lipase 100 (23-300) U/L Urine Color Yellow Urine Appearance Clear (Clear) Urine pH 6.0 (5.0-8.0) Ur Specific [place] 1.025 (1.001-1.035) Urine Protein Trace H (Negative) Urine Glucose (UA) Negative (Negative) Urine Ketones Negative (Negative) Urine Blood Trace H (Negative) Urine Nitrite Negative (Negative) Urine Bilirubin Negative (Negative) Urine Urobilinogen 2.0 (<2.0) mg/dL Ur Leukocyte Esterase Small H (Negative) Urine RBC 4 (0-5) /hpf Urine WBC 5 (0-5) /hpf Ur Squamous Epith Cells 3 (0-4) /hpf Hyaline Casts 1 (0-2) /lpf Urine Mucus Rare H (None) /hpf 02/10/20 Range/Units 10:10 WBC (3.8-10.6) k/uL RBC (3.80-5.40) m/uL Hgb (11.4-16.0) gm/dL Hct (34.0-46.0) % MCV (80.0-100.0) fL MCH (25.0-35.0) pg MCHC (31.0-37.0) g/dL RDW (11.5-15.5) % Plt Count (150-450) k/uL Neutrophils % % Lymphocytes % % Monocytes % % Eosinophils % % Basophils % % Neutrophils # (1.3-7.7) k/uL Lymphocytes # (1.0-4.8) k/uL Monocytes # (0-1.0) k/uL Eosinophils # (0-0.7) k/uL Basophils # (0-0.2) k/uL Anisocytosis Macrocytosis Sodium (137-145) mmol/L Potassium (3.5-5.1) mmol/L Chloride (98-107) mmol/L Carbon Dioxide (22-30) mmol/L Anion Gap mmol/L BUN (7-17) mg/dL Creatinine (0.52-1.04) mg/dL Est GFR (CKD-EPI)AfAm (>60 ml/min/1.73 sqM) Est GFR (CKD-EPI)NonAf (>60 ml/min/1.73 sqM) Glucose (74-99) mg/dL Plasma Lactic Acid Lalit 1.4 (0.7-2.0) mmol/L Calcium (8.4-10.2) mg/dL Total Bilirubin (0.2-1.3) mg/dL AST (14-36) U/L ALT (4-34) U/L Alkaline Phosphatase (38-126) U/L Creatine Kinase (30-135) U/L Total Protein (6.3-8.2) g/dL Albumin (3.5-5.0) g/dL Amylase (30-110) U/L Lipase (23-300) U/L Urine Color Urine Appearance (Clear) Urine pH (5.0-8.0) Ur Specific [place] (1.001-1.035) Urine Protein (Negative) Urine Glucose (UA) (Negative) Urine Ketones (Negative) Urine Blood (Negative) Urine Nitrite (Negative) Urine Bilirubin (Negative) Urine Urobilinogen (<2.0) mg/dL Ur Leukocyte Esterase (Negative) Urine RBC (0-5) /hpf Urine WBC (0-5) /hpf Ur Squamous Epith Cells (0-4) /hpf Hyaline Casts (0-2) /lpf Urine Mucus (None) /hpf - Radiology Data Radiology results: report reviewed (I did review the imaging and report evidence of diverticulitis no evidence of perforation.), image reviewed Disposition Clinical Impression: Diverticulitis, Abdominal pain, Leukocytosis Disposition: ADMITTED IP TO THIS [facility] Condition: Fair Referrals: Chalo Cm DO [Primary Care Provider] - 1-2 days
[2020-02-10 10:19] LABS: Anisocytosis Slight; Basophils # (A) 0.1 k/uL (0-0.2); Basophils % (A) 0 %; Eosinophils # (A) 0.4 k/uL (0-0.7); Eosinophils % (A) 2 %; HGB 12.9 gm/dL (11.4-16.0); Lymphocytes # (A) 1.4 k/uL (1.0-4.8); Lymphocytes % (A) 7 %; MCH 31.5 pg (25.0-35.0); MCHC 30.6 g/dL (31.0-37.0); MCV 102.9 fL (80.0-100.0); Macrocytosis Moderate; Mean Platelet Volume 7.4; Monocytes # (A) 0.6 k/uL (0-1.0); Monocytes % (A) 3 %; Neutrophils # (A) 16.7 k/uL (1.3-7.7); Neutrophils % (A) 86 %; Platelet Count 364 k/uL (150-450); RBC 4.08 m/uL (3.80-5.40); RDW 16.1 % (11.5-15.5); WBC 19.4 k/uL (3.8-10.6)
[2020-02-10 10:23] LABS: Appearance,Urine Clear (Clear); Bilirubin,Urine Negative (Negative); Blood,Urine Trace (Negative); Color,Urine Yellow; Glucose,Urine (UA) Negative (Negative); Hyaline Casts,Urine 1 /lpf (0-2); Ketones,Urine Negative (Negative); Leukocyte Esterase,Urine Small (Negative); Mucus,Urine Rare /hpf; Nitrite,Urine Negative (Negative); Protein,Urine Trace (Negative); RBC,Urine 4 /hpf (0-5); Specific Gravity,Urine 1.025 (1.001-1.035); Squamous Epithelial Cell,Urine 3 /hpf (0-4); WBC,Urine 5 /hpf (0-5)
--- NOTE | 2020-02-10 10:38 | XR ---
EXAMINATION TYPE: XR KUB DATE OF EXAM: 02/10/2020 COMPARISON: 04/12/2016 HISTORY: Pain TECHNIQUE: Single supine KUB image of the abdomen is obtained FINDINGS: Small bowel demonstrates no evidence for dilatation or air fluid levels. Gas and fecal material is seen in non-distended colon. No convincing evidence for pneumoperitoneum. No unusual calcifications. The lung bases are clear. The osseous structures are intact. IMPRESSION: 1. Overall nonobstructive bowel gas pattern.
[2020-02-10 10:40] LABS: Albumin 3.8 g/dL (3.5-5.0); Calcium 9.9 mg/dL (8.4-10.2); Potassium 4.3 mmol/L (3.5-5.1); Total Bilirubin 0.5 mg/dL (0.2-1.3); Total Protein 6.7 g/dL (6.3-8.2)
--- NOTE | 2020-02-10 12:24 | CT ---
EXAMINATION TYPE: CT abdomen pelvis w con DATE OF EXAM: 02/10/2020 COMPARISON: None HISTORY: LLQ pain CT DLP: 1813.1 mGycm CONTRAST: CT scan of the abdomen and pelvis is performed without Oral Contrast and with IV Contrast, patient in jected with 100 mL of Isovue 300. FINDINGS: LUNG BASES-: No visible nodule. No infiltrate. LIVER/GB: The gallbladder is surgically absent. No space occupying hepatic lesion. Biliary tree is of normal caliber. PANCREAS: No inflammation. No distinct mass. SPLEEN: No splenic enlargement. No lesion seen. ADRENALS: No nodule. No thickening. KIDNEYS/BLADDER: No hydronephrosis. No nephrolithiasis. Renal cystic changes are noted. Urinary izabela dder grossly unremarkable. BOWEL: Normal appendix. There is inflammatory change noted adjacent to the distal descending colon co mpatible with acute diverticulitis. No evidence for abscess or free air at this time. GENITAL ORGANS: No gross abnormality. LYMPH NODES: No greater than 1cm abdominal or pelvic lymph nodes are appreciated. AORTA: No significant abnormality. OSSEOUS STRUCTURES: No significant abnormality is seen. OTHER: No significant additional abnormality is seen. IMPRESSION: 1. There is inflammatory change noted adjacent to the distal descending colon compatible with acute d iverticulitis.
[2020-02-10] MEDS ORDERED: PIPERACILLIN-TAZOBACTAM 3.375 GM in SODIUM CHLORIDE 0.9% 100 ML IVPB STA (12:38)
[2020-02-10] MEDS ORDERED: ONDANSETRON 4 MG/2 ML VIAL IVP PRN (13:06)
[2020-02-10] MEDS ORDERED: NALOXONE 0.4 MG/ML 1 ML VIAL IV PRN (13:06)
[2020-02-10] MEDS ORDERED: ALPRAZolam 0.25 MG TAB PO PRN (13:08)
[2020-02-10] MEDS ORDERED: WARFARIN 5 MG TAB PO SCH (13:15)
[2020-02-10 14:52] LABS: INR 3.8 (<1.2); Prothrombin Time 37.7 sec (9.0-12.0)
[2020-02-10] MEDS: SODIUM CHLORIDE 0.9% 1,000 ML IV SCH (15:45)
[2020-02-10] MEDS: METOPROLOL TARTRATE 25 MG TAB PO SCH ×2 (16:10→20:49)
[2020-02-10] MEDS: HYDROmorphone 1 MG/ML 1 ML SYRINGE IVP PRN ×2 (16:24→19:10)
[2020-02-10] MEDS ORDERED: WARFARIN 0.5 MG TAB PO ONE (18:00)
[2020-02-10] MEDS: BUDESONIDE 0.5 MG/2 ML NEBU INHALATION SCH (20:36)
[2020-02-10] MEDS: ATORVASTATIN 20 MG TAB PO SCH (20:48)
[2020-02-10] MEDS: MONTELUKAST 10 MG TAB PO SCH (20:49)
[2020-02-10] MEDS: allopurinoL 100 MG TAB PO SCH (20:49)
[2020-02-10] MEDS: PIPERACILLIN-TAZOBACTAM 3.375 GM in SODIUM CHLORIDE 0.9% 100 ML IVPB SCH (20:49)
[2020-02-10] MEDS: hydroCHLOROthiazide 12.5 MG CAP PO SCH (20:49)
[2020-02-10] MEDS: DULoxetine HCL 60 MG CAPSULE.DR PO SCH (20:49)
[2020-02-10] MEDS: GABAPENTIN 300 MG CAP PO SCH (20:49)
[2020-02-10] MEDS: LATANOPROST 0.005% OPHTH DROPS 2.5 ML BTL BOTH EYES SCH (21:25)
--- NOTE | 2020-02-11 00:05 | P.HPIM ---
History of Present Illness H&P Date: 02/10/20 Chief Complaint: Left lower abdominal pain Ms. Hanley is an 84-year-old female with a past medical history of out,c PT, DVT, hypertension, hyperlipidemia, osteoarthritis, degenerative joint disease, bradycardia status post pacemaker placement, admitted to the hospital with a chief complaint of left lower abdominal pain for the past 2 days. Patient states that she started to notice mild pain in the left lower quadrant of her abdomen that has progressively gotten worse. Patient states that her pain was 10 out of 10 associated with some nausea. Patient denies having any episodes of throwing up. She denies having any diarrhea or constipation. Her last bowel movement was yesterday morning. She denies having any blood in her stool. Patient denies having any hematuria or dysuria. No vaginal discharge. She denies having any fevers chills or rigors. In the emergency at the time of admission patient's vitals temperature [id number] respiratory rate 18 blood pressure 104/54, saturating at 92%. She had KUB x-ray showing nonobstructive bowel gas pattern and an abdominal CAT scan inflammatory images adjacent to the distal descending colon compatible with acute diverticulitis. Patient had labs done showing white count of 19.4, hemoglobin 12.9, platelets 364. Sodium of 135, potassium 4.3, chloride 102, bicarb 26, BUN 31, creatinine 0.91. Lactic acid of 1.4 urine analysis showing small leukocyte esterase and negative for nitrites. Review of Systems REVIEW OF SYSTEMS: CONSTITUTIONAL: No fever, no malaise, no fatigue. HEENT: No recent visual problems or hearing problems. Denied any sore throat. CARDIOVASCULAR: No chest pain or palpitations PULMONARY: no cough, no hemoptysis. GASTROINTESTINAL: As per HPI. NEUROLOGICAL: No headaches, no weakness, no numbness. HEMATOLOGICAL: Denies any bleeding or petechiae. GENITOURINARY: Denies any burning micturition, frequency, or urgency. MUSCULOSKELETAL/RHEUMATOLOGICAL: Denies any acute joint pain, swelling, or any muscle pain. ENDOCRINE: Denies any polyuria or polydipsia. The rest of the 14-point review of systems is negative. Past Medical History Past Medical History: Asthma, COPD, Deep Vein Thrombosis (DVT), Hyperlipidemia, Hypertension, Osteoarthritis (OA), Skin Disorder Additional Past Medical History / Comment(s): Hx. gout, osteoporosis, arthritis, DVT L upper arm, dermatitis, bilateral glaucoma, bradycardia- pacemaker, degenerative disc disease, cervical and back pain, History of Any Multi-Drug Resistant Organisms: None Reported Past Surgical History: Adenoidectomy, Appendectomy, Cholecystectomy, Hernia Repair, Orthopedic Surgery, Pacemaker, Tonsillectomy, Tubal Ligation Additional Past Surgical History / Comment(s): Hx throat nodule removed, mole left eyelid, D&C, bilat cataracts removed . RIGHT KNEE REPLACEMENT X 2. , hiatal hernia repair, I&D L inguinal abscess. Past Anesthesia/Blood Transfusion Reactions: No Reported Reaction, Motion Sickness Type of Cardiac Device: Permanent Pacemaker Device Placement Date:: October 2012 Past Psychological History: No Psychological Hx Reported Smoking Status: Former smoker Past Alcohol Use History: None Reported Past Drug Use History: None Reported - Past Family History Father Additional Family Medical History / Comment(s): Father pulmonary fibrosis Mother Family Medical History: Cancer Sister(s) Additional Family Medical History / Comment(s): melanoma Medications and Allergies Home Medications Medication Instructions Recorded Confirmed Type Bimatoprost [Lumigan .01% Ophth 1 drop BOTH EYES HS 11/07/13 02/10/20 History Soln] Gabapentin [Neurontin] 600 mg PO BID 11/07/13 02/10/20 History Isosorbide Mononitrate [Imdur] 60 mg PO DAILY 11/07/13 02/10/20 History Montelukast [Singulair] 10 mg PO HS 11/07/13 02/10/20 History allopurinoL [Zyloprim] 100 mg PO BID 07/09/14 02/10/20 History Budesonide [Pulmicort] 0.5 mg INHALATION RT-BID 03/29/16 02/10/20 History Omeprazole 20 mg PO BID 03/29/16 02/10/20 History Metoprolol Tartrate [Lopressor] 25 mg PO TID #0 04/13/16 02/10/20 Rx Sucralfate [Carafate] 1 gm PO TID 08/30/17 02/10/20 History ALPRAZolam [Xanax] 0.25 mg PO HS PRN 07/17/18 02/10/20 History metHOTREXate sodium [Methotrexate] 25 mg PO FR 07/17/18 02/10/20 History DULoxetine HCL [Cymbalta] 60 mg PO HS 11/22/18 02/10/20 History Losartan [Cozaar] 50 mg PO DAILY 11/22/18 02/10/20 History Warfarin [Coumadin] 5 mg PO SUMOTUWETHSA@1700 11/22/18 02/10/20 History Simvastatin [Zocor] 40 mg PO W/SUPPER 01/27/20 02/10/20 History Warfarin [Coumadin] 2.5 mg PO FR@1700 01/27/20 02/10/20 History hydroCHLOROthiazide [Hydrodiuril] 12.5 mg PO BID 01/27/20 02/10/20 History Buprenorphine [Butrans 10 MCG/HOUR] 1 patch TRANSDERM TU 02/10/20 02/10/20 History Calcium Carbonate/Vitamin D3 1 tab PO DAILY 02/10/20 02/10/20 History [Calcium 600-D3 20Mcg(800 Unit)] Denosumab [Prolia] 60 mg SQ Q180D 02/10/20 02/10/20 History Folic Acid 1 mg PO DAILY 02/10/20 02/10/20 History L.acidoph,Paracasei, B.lactis 1 cap PO DAILY 02/10/20 02/10/20 History [Probiotic] Multivitamins, Thera [Multivitamin 1 tab PO DAILY 02/10/20 02/10/20 History (formulary)] Nitroglycerin Sl Tabs [Nitrostat] 0.4 mg SUBLINGUAL Q5M PRN 02/10/20 02/10/20 History Allergies Allergy/AdvReac Type Severity Reaction Status Date / Time LUNA Inhibitors AdvReac Cough Verified 02/10/20 14:29 codeine AdvReac Nausea Verified 02/10/20 14:29 tape Allergy Unknown Uncoded 02/10/20 14:29 Physical Exam Vitals: Vital Signs Temp Pulse Pulse Resp BP BP Pulse Ox 02/10/20 17:50 97.8 F 62 18 138/78 97 02/10/20 15:45 97.6 F 65 17 120/60 96 02/10/20 11:38 66 16 111/58 99 02/10/20 09:12 97.0 F L 53 L 18 104/54 97 Intake and Output 02/10/20 02/10/20 02/10/20 06:59 14:59 22:59 Other: Weight 92.533 kg PHYSICAL EXAMINATION: GENERAL: The patient is alert and oriented x3, not in any acute distress. Well developed, well nourished. HEENT: Pupils are round and equally reacting to light. EOMI. No scleral icterus. No conjunctival pallor. Normocephalic, atraumatic. No pharyngeal erythema. No thyromegaly. CARDIOVASCULAR: S1 and S2 present. Tachycardia PULMONARY: Bilateral BS positive, no wheeze or crackles ABDOMEN: Soft, + tenderness in th eleft lower quadrant , nondistended, hypoactive bowel sounds. MUSCULOSKELETAL: No joint swelling or deformity. EXTREMITIES: no pedal edema NEUROLOGICAL: Gross neurological examination did not reveal any focal deficits. SKIN: No rashes. Results CBC & Chem 7: 02/10/20 10:10 02/10/20 10:10 Labs: Abnormal Lab Results - Last 24 Hours (Table) 02/10/20 02/10/20 02/10/20 Range/Units 10:10 10:10 10:10 WBC 19.4 H (3.8-10.6) k/uL MCV 102.9 H (80.0-100.0) fL MCHC 30.6 L (31.0-37.0) g/dL RDW 16.1 H (11.5-15.5) % Neutrophils # 16.7 H (1.3-7.7) k/uL PT (9.0-12.0) sec INR (<1.2) Sodium 135 L (137-145) mmol/L BUN 31 H (7-17) mg/dL Glucose 104 H (74-99) mg/dL Creatine Kinase 27 L (30-135) U/L Urine Protein Trace H (Negative) Urine Blood Trace H (Negative) Ur Leukocyte Esterase Small H (Negative) Urine Mucus Rare H (None) /hpf 02/10/20 Range/Units 14:32 WBC (3.8-10.6) k/uL MCV (80.0-100.0) fL MCHC (31.0-37.0) g/dL RDW (11.5-15.5) % Neutrophils # (1.3-7.7) k/uL PT 37.7 H (9.0-12.0) sec INR 3.8 H (<1.2) Sodium (137-145) mmol/L BUN (7-17) mg/dL Glucose (74-99) mg/dL Creatine Kinase (30-135) U/L Urine Protein (Negative) Urine Blood (Negative) Ur Leukocyte Esterase (Negative) Urine Mucus (None) /hpf Assessment and Plan Assessment: ASSESSMENT Acute left-sided diverticulitis Atrial fibrillation on anticoagulation with Coumadin Hypertension Hyperlipidemia Mild intermittent asthma without acute exacerbation Multiple joint osteoarthritis History of DVT Osteoporosis Bilateral glaucoma Right knee replacement x2 Obesity with BMI of 32.9 PLAN: Patient has been started on Zosyn for acute diverticulitis. Symptomatic management of pain. Patient's INR is 3.8, will hold the dose of Coumadin today. Patient has been restarted on home medications. Further recommendations depending on the progress of the patient.
[2020-02-11] MEDS: HYDROmorphone 1 MG/ML 1 ML SYRINGE IVP PRN ×5 (03:01→21:38)
[2020-02-11] MEDS: SODIUM CHLORIDE 0.9% 1,000 ML IV SCH ×3 (05:01→19:25)
[2020-02-11] MEDS: PIPERACILLIN-TAZOBACTAM 3.375 GM in SODIUM CHLORIDE 0.9% 100 ML IVPB SCH ×3 (05:44→21:32)
[2020-02-11 06:33] LABS: Basophils # (A) 0.1 k/uL (0-0.2); Basophils % (A) 1 %; Eosinophils # (A) 0.3 k/uL (0-0.7); Eosinophils % (A) 3 %; HCT 36.7 % (34.0-46.0); HGB 11.6 gm/dL (11.4-16.0); Hypochromasia Slight; Lymphocytes # (A) 1.1 k/uL (1.0-4.8); Lymphocytes % (A) 13 %; MCH 32.6 pg (25.0-35.0); MCHC 31.6 g/dL (31.0-37.0); MCV 103.2 fL (80.0-100.0); Macrocytosis Moderate; Mean Platelet Volume 7.7; Monocytes # (A) 0.3 k/uL (0-1.0); Monocytes % (A) 3 %; Neutrophils % (A) 79 %; Platelet Count 284 k/uL (150-450); RBC 3.56 m/uL (3.80-5.40); RDW 15.5 % (11.5-15.5); WBC 8.9 k/uL (3.8-10.6)
[2020-02-11] MEDS: BUDESONIDE 0.5 MG/2 ML NEBU INHALATION SCH ×2 (09:21→20:27)
[2020-02-11 09:25] LABS: INR 2.86 (0.90-1.11); Prothrombin Time 29.1 sec (9.9-11.9)
[2020-02-11] MEDS: ISOSORBIDE MONONITRATE ER 60 MG TAB.ER.24H PO SCH (09:33)
[2020-02-11] MEDS: GABAPENTIN 300 MG CAP PO SCH ×2 (09:33→21:32)
[2020-02-11] MEDS: allopurinoL 100 MG TAB PO SCH ×2 (09:34→21:31)
[2020-02-11] MEDS: METOPROLOL TARTRATE 25 MG TAB PO SCH ×3 (09:34→21:31)
[2020-02-11] MEDS: hydroCHLOROthiazide 12.5 MG CAP PO SCH ×2 (09:34→21:32)
[2020-02-11] MEDS: LOSARTAN 50 MG TAB PO SCH (09:34)
[2020-02-11] MEDS: PANTOPRAZOLE 40 MG TABLET PO SCH (09:35)
[2020-02-11] MEDS: SUCRALFATE 1 GM TAB PO SCH (09:35)
[2020-02-11] MEDS: FOLIC ACID 1 MG TAB PO SCH (09:35)
[2020-02-11 10:13] LABS: African American GFR (CKD) 79.6 (60.0-200.0); Anion Gap 6.7 mmol/L (4.00-12.00); BUN/Creat Ratio 27.5 Ratio (12.00-20.00); Calcium 9.2 mg/dL (8.7-10.3); Carbon Dioxide 25.3 mmol/L (21.6-31.8); Non-African American GFR(CKD) 68.7 (60.0-200.0); Potassium 4.5 mmol/L (3.5-5.5)
--- NOTE | 2020-02-11 14:46 | P.GSCN ---
<Avani Travis - Last Filed: 02/11/20 14:36> History of Present Illness Consult date: 02/11/20 History of present illness: CHIEF COMPLAINT: Abdominal pain HISTORY OF PRESENT ILLNESS: This is a 84-year-old female with a known history of DVT, hypertension, hyperlipidemia, atrial fibrillation anticoagulated with Coumadin, repair of large hiatal hernia with mesh, appendectomy and cholecystectomy. Patient presents to the emergency room with complaints of left lower quadrant abdominal pain for 2 days. She has no prior history of diverticulitis. She reported the pain as sharp and stabbing and radiated at 10 out of 10. She did have nausea. Her pain has shown improvement since admission. She had a computed tomography scan of the abdomen and pelvis showing inflammatory change noted adjacent to the distal descending colon compatible with acute diverticulitis. WBC elevated at 19.4 on admission. She had been started on IV Zosyn. She denies any fever, chills or sweats. Denies any blood in her stools. PAST MEDICAL HISTORY: See list. PAST SURGICAL HISTORY: See list. MEDICATIONS: See list. ALLERGIES: See list. SOCIAL HISTORY: No illicit drug use. REVIEW OF SYSTEMS: CONSTITUTIONAL: Denies fever or chills. HEENT: Denies blurred vision, vision changes, or eye pain. Denies hemoptysis CARDIOVASCULAR: Denies chest pain or pressure. RESPIRATORY: No shortness of breath. GASTROINTESTINAL: See HPI for pertinent findings HEMATOLOGIC: Denies bleeding disorders. GENITOURINARY: Denies any blood in urine or increased urinary frequency. SKIN: Denies pruitis. Denies rash. PHYSICAL EXAM: VITAL SIGNS: Reviewed GENERAL: Well-developed in no acute distress. HEENT: No sclera icterus. Extraocular movements grossly intact. Moist buccal mucosa. Head is atraumatic, normocephalic. No nasal drainage. ABDOMEN: Soft. Nondistended. Left lower quadrant tenderness with palpation. Right-sided abdominal wall hernia present NEUROLOGIC: Alert and oriented. Cranial nerves II through XII grossly intact. LABORATORY DATA: WBC 19.4 down to 8.9 hemoglobin 11.6 INR 2.86 LFTs normal lipase 100 IMAGING: computed tomography scan of the abdomen and pelvis showing inflammatory change noted adjacent to the distal descending colon compatible with acute diverticulitis ASSESSMENT: 1. Acute diverticulitis of the distal descending colon 2. History of paroxysmal atrial fibrillation anticoagulated with Coumadin 3. History of repair of large hiatal hernia with mesh in 2013 PLAN: -Continue conservative management of diverticulitis -Continue IV Zosyn -Continue IV fluids -Continue pain medication as needed -Continue a clear liquid diet Thank you for this consultation Physician Medical Superintendent note has been reviewed by physician. Signing provider agrees with the documented findings, assessment, and plan of care. Past Medical History Past Medical History: Asthma, COPD, Deep Vein Thrombosis (DVT), Hyperlipidemia, Hypertension, Osteoarthritis (OA), Skin Disorder Additional Past Medical History / Comment(s): Hx. gout, osteoporosis, arthritis, DVT L upper arm, dermatitis, bilateral glaucoma, bradycardia- pacemaker, degenerative disc disease, cervical and back pain, History of Any Multi-Drug Resistant Organisms: None Reported Past Surgical History: Adenoidectomy, Appendectomy, Cholecystectomy, Hernia Repair, Orthopedic Surgery, Pacemaker, Tonsillectomy, Tubal Ligation Additional Past Surgical History / Comment(s): Hx throat nodule removed, mole left eyelid, D&C, bilat cataracts removed . RIGHT KNEE REPLACEMENT X 2. , hiatal hernia repair, I&D L inguinal abscess. Past Anesthesia/Blood Transfusion Reactions: No Reported Reaction, Motion Sickness Type of Cardiac Device: Permanent Pacemaker Device Placement Date:: October 2012 Past Psychological History: No Psychological Hx Reported Smoking Status: Former smoker Past Alcohol Use History: None Reported Past Drug Use History: None Reported - Past Family History Father Additional Family Medical History / Comment(s): Father pulmonary fibrosis Mother Family Medical History: Cancer Sister(s) Additional Family Medical History / Comment(s): melanoma Medications and Allergies Home Medications Medication Instructions Recorded Confirmed Type Bimatoprost [Lumigan .01% Ophth 1 drop BOTH EYES HS 11/07/13 02/10/20 History Soln] Gabapentin [Neurontin] 600 mg PO BID 11/07/13 02/10/20 History Isosorbide Mononitrate [Imdur] 60 mg PO DAILY 11/07/13 02/10/20 History Montelukast [Singulair] 10 mg PO HS 11/07/13 02/10/20 History allopurinoL [Zyloprim] 100 mg PO BID 07/09/14 02/10/20 History Budesonide [Pulmicort] 0.5 mg INHALATION RT-BID 03/29/16 02/10/20 History Omeprazole 20 mg PO BID 03/29/16 02/10/20 History Metoprolol Tartrate [Lopressor] 25 mg PO TID #0 04/13/16 02/10/20 Rx Sucralfate [Carafate] 1 gm PO TID 08/30/17 02/10/20 History ALPRAZolam [Xanax] 0.25 mg PO HS PRN 07/17/18 02/10/20 History metHOTREXate sodium [Methotrexate] 25 mg PO FR 07/17/18 02/10/20 History DULoxetine HCL [Cymbalta] 60 mg PO HS 11/22/18 02/10/20 History Losartan [Cozaar] 50 mg PO DAILY 11/22/18 02/10/20 History Warfarin [Coumadin] 5 mg PO SUMOTUWETHSA@1700 11/22/18 02/10/20 History Simvastatin [Zocor] 40 mg PO W/SUPPER 01/27/20 02/10/20 History Warfarin [Coumadin] 2.5 mg PO FR@1700 01/27/20 02/10/20 History hydroCHLOROthiazide [Hydrodiuril] 12.5 mg PO BID 01/27/20 02/10/20 History Buprenorphine [Butrans 10 MCG/HOUR] 1 patch TRANSDERM TU 02/10/20 02/10/20 History Calcium Carbonate/Vitamin D3 1 tab PO DAILY 02/10/20 02/10/20 History [Calcium 600-D3 20Mcg(800 Unit)] Denosumab [Prolia] 60 mg SQ Q180D 02/10/20 02/10/20 History Folic Acid 1 mg PO DAILY 02/10/20 02/10/20 History L.acidoph,Paracasei, B.lactis 1 cap PO DAILY 02/10/20 02/10/20 History [Probiotic] Multivitamins, Thera [Multivitamin 1 tab PO DAILY 02/10/20 02/10/20 History (formulary)] Nitroglycerin Sl Tabs [Nitrostat] 0.4 mg SUBLINGUAL Q5M PRN 02/10/20 02/10/20 History Allergies Allergy/AdvReac Type Severity Reaction Status Date / Time LUNA Inhibitors AdvReac Cough Verified 02/10/20 14:29 codeine AdvReac Nausea Verified 02/10/20 14:29 tape Allergy Unknown Uncoded 02/10/20 14:29 Surgical - Exam Vital Signs Temp Pulse Resp BP Pulse Ox 97.0 F L 53 L 18 104/54 97 02/10/20 09:12 02/10/20 09:12 02/10/20 09:12 02/10/20 09:12 02/10/20 09:12 Results - Labs 02/11/20 05:33 02/11/20 05:33 Abnormal Lab Results - Last 24 Hours (Table) 02/10/20 02/11/20 02/11/20 Range/Units 14:32 05:33 05:33 RBC 3.56 L (3.80-5.40) m/uL MCV 103.2 H (80.0-100.0) fL PT 37.7 H 29.1 H (9.0-12.0) sec INR 3.8 H 2.86 H (<1.2) BUN/Creatinine Ratio (12.00-20.00) Ratio 02/11/20 Range/Units 05:33 RBC (3.80-5.40) m/uL MCV (80.0-100.0) fL PT (9.0-12.0) sec INR (<1.2) BUN/Creatinine Ratio 27.50 H (12.00-20.00) Ratio Diabetes panel 02/11/20 Range/Units 05:33 Sodium 138 (135-145) mmol/L Potassium 4.5 (3.5-5.5) mmol/L Chloride 106 (96-109) mmol/L Carbon Dioxide 25.3 (21.6-31.8) mmol/L BUN 22.0 (9.0-27.0) mg/dL Creatinine 0.8 (0.6-1.5) mg/dL Glucose 87 (70-110) mg/dL Calcium 9.2 (8.7-10.3) mg/dL Calcium panel 02/11/20 Range/Units 05:33 Calcium 9.2 (8.7-10.3) mg/dL Pituitary panel 02/11/20 Range/Units 05:33 Sodium 138 (135-145) mmol/L Potassium 4.5 (3.5-5.5) mmol/L Chloride 106 (96-109) mmol/L Carbon Dioxide 25.3 (21.6-31.8) mmol/L BUN 22.0 (9.0-27.0) mg/dL Creatinine 0.8 (0.6-1.5) mg/dL Glucose 87 (70-110) mg/dL Calcium 9.2 (8.7-10.3) mg/dL Adrenal panel 02/11/20 Range/Units 05:33 Sodium 138 (135-145) mmol/L Potassium 4.5 (3.5-5.5) mmol/L Chloride 106 (96-109) mmol/L Carbon Dioxide 25.3 (21.6-31.8) mmol/L BUN 22.0 (9.0-27.0) mg/dL Creatinine 0.8 (0.6-1.5) mg/dL Glucose 87 (70-110) mg/dL Calcium 9.2 (8.7-10.3) mg/dL <Edgardo Mancuso - Last Filed: 02/11/20 14:54> History of Present Illness History of present illness: As above. Patient with left lower quadrant pain and tenderness. CAT scan findings reviewed with the patient. Patient with mild to moderate diverticulitis involving the distals descending colon. No free air seen. Continue antibiotics. Continue liquid diet. We'll follow. Surgical - Exam Vital Signs Temp Pulse Resp BP Pulse Ox 97.0 F L 53 L 18 104/54 97 02/10/20 09:12 02/10/20 09:12 02/10/20 09:12 02/10/20 09:12 02/10/20 09:12 Results - Labs 02/11/20 05:33 02/11/20 05:33 Abnormal Lab Results - Last 24 Hours (Table) 02/10/20 02/11/20 02/11/20 Range/Units 14:32 05:33 05:33 RBC 3.56 L (3.80-5.40) m/uL MCV 103.2 H (80.0-100.0) fL PT 37.7 H 29.1 H (9.0-12.0) sec INR 3.8 H 2.86 H (<1.2) BUN/Creatinine Ratio (12.00-20.00) Ratio 02/11/20 Range/Units 05:33 RBC (3.80-5.40) m/uL MCV (80.0-100.0) fL PT (9.0-12.0) sec INR (<1.2) BUN/Creatinine Ratio 27.50 H (12.00-20.00) Ratio Diabetes panel 02/11/20 Range/Units 05:33 Sodium 138 (135-145) mmol/L Potassium 4.5 (3.5-5.5) mmol/L Chloride 106 (96-109) mmol/L Carbon Dioxide 25.3 (21.6-31.8) mmol/L BUN 22.0 (9.0-27.0) mg/dL Creatinine 0.8 (0.6-1.5) mg/dL Glucose 87 (70-110) mg/dL Calcium 9.2 (8.7-10.3) mg/dL Calcium panel 02/11/20 Range/Units 05:33 Calcium 9.2 (8.7-10.3) mg/dL Pituitary panel 02/11/20 Range/Units 05:33 Sodium 138 (135-145) mmol/L Potassium 4.5 (3.5-5.5) mmol/L Chloride 106 (96-109) mmol/L Carbon Dioxide 25.3 (21.6-31.8) mmol/L BUN 22.0 (9.0-27.0) mg/dL Creatinine 0.8 (0.6-1.5) mg/dL Glucose 87 (70-110) mg/dL Calcium 9.2 (8.7-10.3) mg/dL Adrenal panel 02/11/20 Range/Units 05:33 Sodium 138 (135-145) mmol/L Potassium 4.5 (3.5-5.5) mmol/L Chloride 106 (96-109) mmol/L Carbon Dioxide 25.3 (21.6-31.8) mmol/L BUN 22.0 (9.0-27.0) mg/dL Creatinine 0.8 (0.6-1.5) mg/dL Glucose 87 (70-110) mg/dL Calcium 9.2 (8.7-10.3) mg/dL
[2020-02-11] MEDS ORDERED: WARFARIN 2.5 MG TAB PO ONE (18:00)
[2020-02-11] MEDS: LATANOPROST 0.005% OPHTH DROPS 2.5 ML BTL BOTH EYES SCH (21:29)
[2020-02-11] MEDS: MONTELUKAST 10 MG TAB PO SCH (21:32)
[2020-02-11] MEDS: ATORVASTATIN 20 MG TAB PO SCH (21:32)
[2020-02-11] MEDS: DULoxetine HCL 60 MG CAPSULE.DR PO SCH (21:32)
--- NOTE | 2020-02-12 00:17 | P.PN ---
Subjective Progress Note Date: 02/11/20 Principal diagnosis: Acute Diverticulitis Ms. Hanley is an 84-year-old female with a past medical history of out,c PT, DVT, hypertension, hyperlipidemia, osteoarthritis, degenerative joint disease, bradycardia status post pacemaker placement, admitted to the hospital with a chief complaint of left lower abdominal pain for the past 2 days. Patient states that she started to notice mild pain in the left lower quadrant of her abdomen that has progressively gotten worse. Patient states that her pain was 10 out of 10 associated with some nausea. Patient denies having any episodes of throwing up. She denies having any diarrhea or constipation. Her last bowel m ovement was yesterday morning. She denies having any blood in her stool. Patient denies having any hematuria or dysuria. No vaginal discharge. She denies having any fevers chills or rigors. In the emergency at the time of admission patient's vitals temperature 9753 respiratory rate 18 blood pressure 104/54, saturating at 92%. She had KUB x-ray showing nonobstructive bowel gas pattern and an abdominal CAT scan inflammatory images adjacent to the distal descending colon compatible with acute diverticulitis. Patient had labs done showing white count of 19.4, hemoglobin 12.9, platelets 364. Sodium of 135, potassium 4.3, chloride 102, bicarb 26, BUN 31, creatinine 0.91. Lactic acid of 1.4 urine analysis showing small leukocyte esterase and negative for nitrites. On 02/11/2020 patient is sitting up in her bed appears to be in no acute distress. She states that her left lower quadrant abdominal pain is improving but still has tenderness on bending towards the left side. Patient denies having any fevers chills or rigors. No nausea or vomiting. She did not have a bowel movement. On reviewing the vitals T-max of 97.9, heart rate of 68 respiratory rate of 18, blood pressure 141 x 83 saturating at 96% on room air. On reviewing the labs white count decreased from 19-8.9. Hemoglobin is 9.6, platelets 284. INR of 2.83. Sodium 138, potassium 4.8, chloride 106, bicarb 25, BUN 22, creatinine 0.8. Active Medications Allopurinol (Allopurinol 100 Mg Tab) 100 mg PO BID [facility] Last Admin: 02/11/20 21:31 Dose: 100 mg Documented by: Alprazolam (Alprazolam 0.25 Mg Tab) 0.25 mg PO HS PRN PRN Reason: Insomnia Atorvastatin Calcium (Atorvastatin 20 Mg Tab) 20 mg PO HS [facility] Last Admin: 02/11/20 21:32 Dose: 20 mg Documented by: Budesonide (Budesonide 0.5 Mg/2 Ml Nebu) 0.5 mg INHALATION RT-BID [facility] Last Admin: 02/11/20 20:27 Dose: 0.5 mg Documented by: Duloxetine HCl (Duloxetine Hcl 60 Mg Capsule.Dr) 60 mg PO HS [facility] Last Admin: 02/11/20 21:32 Dose: 60 mg Documented by: Folic Acid (Folic Acid 1 Mg Tab) 1 mg PO DAILY [facility] Last Admin: 02/11/20 09:35 Dose: 1 mg Documented by: Gabapentin (Gabapentin 300 Mg Cap) 600 mg PO BID [facility] Last Admin: 02/11/20 21:32 Dose: 600 mg Documented by: Hydrochlorothiazide (Hydrochlorothiazide 12.5 Mg Cap) 12.5 mg PO BID [facility] Last Admin: 02/11/20 21:32 Dose: 12.5 mg Documented by: Hydromorphone HCl (Hydromorphone 1 Mg/Ml 1 Ml Syringe) 1 mg IVP Q3HR PRN PRN Reason: Severe Pain Last Admin: 02/11/20 21:38 Dose: 1 mg Documented by: Sodium Chloride (Saline 0.9%) 1,000 mls @ 100 mls/hr IV .Q10H [facility] Last Admin: 02/11/20 19:25 Dose: Not Given Documented by: Piperacillin Sod/Tazobactam (Sod 3.375 gm/ Sodium Chloride) 100 mls @ 25 mls/hr IVPB Q8H [facility] Last Admin: 02/11/20 21:32 Dose: 25 mls/hr Documented by: Isosorbide Mononitrate (Isosorbide Mononitrate Er 60 Mg Tab.Er.24h) 60 mg PO DAILY [facility] Last Admin: 02/11/20 09:33 Dose: 60 mg Documented by: Latanoprost (Latanoprost 0.005% Ophth Drops 2.5 Ml Btl) 1 drops BOTH EYES [facility] Last Admin: 02/11/20 21:29 Dose: 1 drops Documented by: Losartan Potassium (Losartan 50 Mg Tab) 50 mg PO DAILY [facility] Last Admin: 02/11/20 09:34 Dose: 50 mg Documented by: Metoprolol Tartrate (Metoprolol Tartrate 25 Mg Tab) 25 mg PO TID [facility] Last Admin: 02/11/20 21:31 Dose: 25 mg Documented by: Miscellaneous Information (Warfarin Per Pharmacy) 0 each MISCELLANE DIRECTED PRN PRN Reason: ANTICOAG Montelukast Sodium (Montelukast 10 Mg Tab) 10 mg PO [facility] Last Admin: 02/11/20 21:32 Dose: 10 mg Documented by: Naloxone HCl (Naloxone 0.4 Mg/Ml 1 Ml Vial) 0.2 mg IV Q2M PRN PRN Reason: Opioid Reversal Non-Formulary Medication (Buprenorphine [Butrans 5 Mcg/Hr]) 1 [place] [facility] [place]ine [ Butrans 10 Mcg/Hour] 10 Mcg/Hour Patch. [facility] 1 patch [place] [facility] [place] Ondansetron HCl (Ondansetron 4 Mg/2 Ml Vial) 4 mg IVP Q8HR PRN PRN Reason: Nausea And Vomiting Pantoprazole Sodium (Pantoprazole 40 Mg Tablet) 40 mg PO AC-BRKFST [facility] Last Admin: 02/11/20 09:35 Dose: 40 mg Documented by: Sucralfate (Sucralfate 1 Gm Tab) 1 gm PO DAILY [facility] Last Admin: 02/11/20 09:35 Dose: 1 gm Documented by: Objective - Vital Signs Vital signs: Vital Signs Temp 97.9 F 02/11/20 07:00 Pulse 68 02/11/20 09:30 Resp 18 02/11/20 07:00 BP 120/67 02/11/20 07:00 Pulse Ox 97 02/11/20 07:00 Intake & Output 02/10/20 02/11/20 02/11/20 18:59 06:59 18:59 Weight 92.533 kg Other: Voiding Method Toilet # Voids 1 - Exam PHYSICAL EXAMINATION: GENERAL: The patient is alert and oriented x3, not in any acute distress. Well developed, well nourished. HEENT: No pallor or icterus CARDIOVASCULAR: S1 and S2 present. PULMONARY: Bilateral BS positive, no wheeze or crackles ABDOMEN: Soft, + tenderness in the left lower quadrant , nondistended, hypoactive bowel sounds. MUSCULOSKELETAL: No joint swelling or deformity. EXTREMITIES: no pedal edema NEUROLOGICAL: Gross neurological examination did not reveal any focal deficits. - Labs CBC & Chem 7: 02/11/20 05:33 02/11/20 05:33 Labs: Abnormal Lab Results - Last 24 Hours (Table) 02/10/20 02/11/20 02/11/20 Range/Units 14:32 05:33 05:33 RBC 3.56 L (3.80-5.40) m/uL MCV 103.2 H (80.0-100.0) fL PT 37.7 H 29.1 H (9.0-12.0) sec INR 3.8 H 2.86 H (<1.2) BUN/Creatinine Ratio (12.00-20.00) Ratio 02/11/20 Range/Units 05:33 RBC (3.80-5.40) m/uL MCV (80.0-100.0) fL PT (9.0-12.0) sec INR (<1.2) BUN/Creatinine Ratio 27.50 H (12.00-20.00) Ratio Assessment and Plan Assessment: ASSESSMENT Acute left-sided diverticulitis Atrial fibrillation on anticoagulation with Coumadin Hypertension Hyperlipidemia Mild intermittent asthma without acute exacerbation Multiple joint osteoarthritis History of DVT Osteoporosis Bilateral glaucoma Right knee replacement x2 Obesity with BMI of 32.9 PLAN: Patient's white count has been trending down from 19-8.9 today. Patient has been afebrile. Blood cultures still pending. Continue with Zosyn for now. Patient's Coumadin INR was elevated at 3.8 yesterday. Today it is at 2.86. General surgery consult was obtained as the patient still has some residual pain. If there are no plans of any surgical intervention patient can be restart ed on her Coumadin. Continue with the rest of her current medication regimen. Further recommendations depending on the progress of the patient.
[2020-02-12] MEDS: PIPERACILLIN-TAZOBACTAM 3.375 GM in SODIUM CHLORIDE 0.9% 100 ML IVPB SCH ×3 (04:17→21:00)
[2020-02-12] MEDS: SODIUM CHLORIDE 0.9% 1,000 ML IV SCH ×2 (04:17→16:42)
[2020-02-12] MEDS: HYDROmorphone 1 MG/ML 1 ML SYRINGE IVP PRN ×3 (04:49→18:18)
[2020-02-12] MEDS: BUDESONIDE 0.5 MG/2 ML NEBU INHALATION SCH ×2 (07:29→21:48)
[2020-02-12 08:27] LABS: Basophils # (A) 0.2 k/uL (0-0.2); Basophils % (A) 2 %; Eosinophils # (A) 0.4 k/uL (0-0.7); Eosinophils % (A) 6 %; HCT 37.6 % (34.0-46.0); HGB 11.5 gm/dL (11.4-16.0); Hypochromasia Marked; Lymphocytes # (A) 0.8 k/uL (1.0-4.8); Lymphocytes % (A) 11 %; MCH 34.1 pg (25.0-35.0); MCHC 30.6 g/dL (31.0-37.0); Macrocytosis Marked; Mean Platelet Volume 8.5; Monocytes # (A) 0.3 k/uL (0-1.0); Monocytes % (A) 4 %; Neutrophils # (A) 5.2 k/uL (1.3-7.7); Neutrophils % (A) 75 %; Platelet Count 332 k/uL (150-450); RBC 3.38 m/uL (3.80-5.40); RDW 15.5 % (11.5-15.5)
[2020-02-12 08:29] LABS: MCV 111.5 fL (80.0-100.0)
[2020-02-12] MEDS: GABAPENTIN 300 MG CAP PO SCH ×2 (08:33→20:53)
[2020-02-12] MEDS: hydroCHLOROthiazide 12.5 MG CAP PO SCH ×2 (08:33→20:52)
[2020-02-12] MEDS: ISOSORBIDE MONONITRATE ER 60 MG TAB.ER.24H PO SCH (08:33)
[2020-02-12] MEDS: METOPROLOL TARTRATE 25 MG TAB PO SCH ×3 (08:34→21:02)
[2020-02-12] MEDS: PANTOPRAZOLE 40 MG TABLET PO SCH (08:34)
[2020-02-12] MEDS: SUCRALFATE 1 GM TAB PO SCH (08:34)
[2020-02-12] MEDS: LOSARTAN 50 MG TAB PO SCH (08:34)
[2020-02-12] MEDS: FOLIC ACID 1 MG TAB PO SCH (08:35)
[2020-02-12] MEDS: allopurinoL 100 MG TAB PO SCH ×2 (08:56→20:53)
[2020-02-12] MEDS ORDERED: BUPRENORPHINE TOPICAL SCH ×2 (09:00)
[2020-02-12 10:50] LABS: African American GFR (CKD) 79.6 (60.0-200.0); Anion Gap 8.2 mmol/L (4.00-12.00); Calcium 8.8 mg/dL (8.7-10.3); Carbon Dioxide 23.8 mmol/L (21.6-31.8); Non-African American GFR(CKD) 68.7 (60.0-200.0); Potassium 4.1 mmol/L (3.5-5.5)
[2020-02-12 10:53] LABS: INR 2.9 (0.90-1.11); Prothrombin Time 28.9 sec (9.9-11.9)
--- NOTE | 2020-02-12 15:00 | P.PN ---
Subjective Progress Note Date: 02/12/20 Principal diagnosis: Diverticulitis Patient doing better today. Says her pain has moved up somewhat to the left midabdomen. Left lower quadrant pain she says has resolved. Pain is 4 out of 10 today. It was worse yesterday. She is tolerating clear liquids. She has had bowel movements today. She is afebrile. White blood cell count is normal. Objective - Vital Signs Vital signs: Vital Signs Temp 97.4 F L 02/12/20 14:37 Pulse 60 02/12/20 14:37 Resp 18 02/12/20 14:37 BP 107/60 02/12/20 14:37 Pulse Ox 94 L 02/12/20 14:37 Intake & Output 02/11/20 02/12/20 02/12/20 18:59 06:59 18:59 Intake Total 900 Balance 900 Intake: Intake, IV Titration 900 Amount Piperacillin-Tazobactam 3 100 .375 gm In Sodium Chloride 0.9% 100 ml @ 25 mls/hr IVPB Q8H [facility] Rx#: [id number] Sodium Chloride 0.9% 1, 800 000 ml @ 100 mls/hr IV . Q10H [facility] Rx#:[id number] Other: Voiding Method Toilet # Voids 2 2 # Bowel Movements 0 - Exam Abdomen: Soft, nondistended, left mid abdominal tenderness noted - Labs CBC & Chem 7: 02/12/20 06:35 02/12/20 06:35 Labs: Abnormal Lab Results - Last 24 Hours (Table) 02/12/20 02/12/20 Range/Units 06:35 06:35 RBC 3.38 L (3.80-5.40) m/uL MCV 111.5 H D (80.0-100.0) fL MCHC 30.6 L (31.0-37.0) g/dL Lymphocytes # 0.8 L (1.0-4.8) k/uL Macrocytosis Marked A PT 28.9 H (9.9-11.9) sec INR 2.90 H (0.90-1.11) Microbiology - Last 24 Hours (Table) 02/10/20 13:04 Blood Culture - Preliminary Blood No Growth after 24 hours Assessment and Plan (1) Diverticulitis Narrative/Plan: Patient overall doing fairly well. Will increase diet. Continue IV antibiotics. Current Visit: Yes Status: Acute Code(s): K57.92 - DVTRCLI OF INTEST, PART UNSP, W/O PERF OR ABSCESS W/O BLEED SNOMED Code(s): 929223272
[2020-02-12] MEDS ORDERED: WARFARIN 2.5 MG TAB PO ONE (18:00)
--- NOTE | 2020-02-12 20:21 | P.PN ---
Subjective Ms. Hanley is an 84-year-old female with a past medical history of out,c PT, DVT, hypertension, hyperlipidemia, osteoarthritis, degenerative joint disease, bradycardia status post pacemaker placement, admitted to the hospital with a chief complaint of left lower abdominal pain for the past 2 days. Patient states that she started to notice mild pain in the left lower quadrant of her abdomen that has progressively gotten worse. Patient states that her pain was 10 out of 10 associated with some nausea. Patient denies having any episodes of throwing up. She denies having any diarrhea or constipation. Her last bowel movement was yesterday morning. She denies having any blood in her stool. Patient denies having any hematuria or dysuria. No vaginal discharge. She denies having any fevers chills or rigors. In the emergency at the time of admission patient's vitals temperature 9753 respiratory rate 18 blood pressure 104/54, saturating at 92%. She had KUB x-ray showing nonobstructive bowel gas pattern and an abdominal CAT scan inflammatory images adjacent to the distal descending colon compatible with acute diverticulitis. Patient had labs done showing white count of 19.4, hemoglobin 12.9, platelets 364. Sodium of 135, potassium 4.3, chloride 102, bicarb 26, BUN 31, creatinine 0.91. Lactic acid of 1.4 urine analysis showing small leukocyte esterase and negative for nitrites. 02/12/2020 This is a pleasant 84 years old female with multiple medical problems she was admitted with left lower quadrant abdominal pain secondary to diverticulitis, she still rates her abdominal pain is 4/10 which causing her some distress. Patient however had a good bowel movement this afternoon, it was very loose but no blood. The patient continue a liquid diet with no nausea vomiting. She is hemodynamically stable. No changes in the labs. Surgery team R following the case closely Patient remains on Zosyn and normal saline at 130, which is stopped today Review of Systems malaise, no fatigue. HEENT: No recent visual problems or hearing problems. Denied any sore throat. CARDIOVASCULAR: No chest pain or palpitations PULMONARY: no cough, no hemoptysis. GASTROINTESTINAL: As per HPI. NEUROLOGICAL: No headaches, no weakness, no numbness. Active Medications Generic Name Dose Route Start Last Admin Trade Name Freq PRN Reason Stop Dose Admin Allopurinol 100 mg 02/10/20 21:00 02/12/20 08:56 Allopurinol 100 Mg Tab PO 100 mg BID [facility] Administration Alprazolam 0.25 mg 02/10/20 13:08 Alprazolam 0.25 Mg Tab PO HS PRN Insomnia Atorvastatin Calcium 20 mg 02/10/20 21:00 02/11/20 21:32 Atorvastatin 20 Mg Tab PO 20 mg HS [facility] Administration Budesonide 0.5 mg 02/10/20 20:00 02/12/20 07:29 Budesonide 0.5 Mg/2 Ml Nebu INHALATION 0.5 mg RT-BID [facility] Administration Duloxetine HCl 60 mg 02/10/20 21:00 02/11/20 21:32 Duloxetine Hcl 60 Mg Capsule.Dr PO 60 mg HS [facility] Administration Folic Acid 1 mg 02/11/20 09:00 02/12/20 08:35 Folic Acid 1 Mg Tab PO 1 mg DAILY [facility] Administration Gabapentin 600 mg 02/10/20 21:00 02/12/20 08:33 Gabapentin 300 Mg Cap PO 600 mg BID [facility] Administration Hydrochlorothiazide 12.5 mg 02/10/20 21:00 02/12/20 08:33 Hydrochlorothiazide 12.5 Mg Cap PO 12.5 mg BID [facility] Administration Hydromorphone HCl 1 mg 02/10/20 13:06 02/12/20 18:18 Hydromorphone 1 Mg/Ml 1 Ml Syringe IVP 1 mg Q3HR PRN Administration Severe Pain Sodium Chloride 1,000 mls @ 100 mls/hr 02/10/20 13:15 02/12/20 16:42 Saline 0.9% IV 100 mls/hr .Q10H [facility] Administration Piperacillin Sod/Tazobactam 100 mls @ 25 mls/hr 02/10/20 21:00 02/12/20 12:40 Sod 3.375 gm/ Sodium Chloride IVPB 25 mls/hr Q8H [facility] Administration Isosorbide Mononitrate 60 mg 02/11/20 09:00 02/12/20 08:33 Isosorbide Mononitrate Er 60 Mg Tab.Er.24h PO 60 mg DAILY [facility] Administration Latanoprost 1 drops 02/10/20 21:00 02/11/20 21:29 Latanoprost 0.005% Ophth Drops 2.5 Ml Btl BOTH EYES 1 drops HS [facility] Administration Losartan Potassium 50 mg 02/11/20 09:00 02/12/20 08:34 Losartan 50 Mg Tab PO 50 mg DAILY [facility] Administration Metoprolol Tartrate 25 mg 02/10/20 16:00 02/12/20 16:41 Metoprolol Tartrate 25 Mg Tab PO 25 mg TID [facility] Administration Miscellaneous Information 0 each 02/10/20 16:11 Warfarin Per Pharmacy MISCELLANE DIRECTED PRN ANTICOAG Montelukast Sodium 10 mg 02/10/20 21:00 02/11/20 21:32 Montelukast 10 Mg Tab PO 10 mg HS [facility] Administration Naloxone HCl 0.2 mg 02/10/20 13:06 Naloxone 0.4 Mg/Ml 1 Ml Vial IV Q2M PRN Opioid Reversal Non-Formulary Medication 1 patch 02/12/20 09:00 02/12/20 08:35 Buprenorphine [Butrans 5 Mcg/Hr] TOPICAL Not Given [facility] [place] Buprenorphine [ 1 patch 02/12/20 09:00 02/12/20 08:35 Butrans 10 Mcg/Hour] TOPICAL Not Given 10 Mcg/Hour Patch. [facility] [place] Tdwk Ondansetron HCl 4 mg 02/10/20 13:06 Ondansetron 4 Mg/2 Ml Vial IVP Q8HR PRN Nausea And Vomiting Pantoprazole Sodium 40 mg 02/11/20 07:30 02/12/20 08:34 Pantoprazole 40 Mg Tablet PO 40 mg AC-BRKFST [facility] Administration Sucralfate 1 gm 02/11/20 09:00 02/12/20 08:34 Sucralfate 1 Gm Tab PO 1 gm DAILY [facility] Administration Objective - Vital Signs Vital signs: Vital Signs Temp 97.4 F L 02/12/20 14:37 Pulse 60 02/12/20 14:37 Resp 18 02/12/20 16:00 BP 107/60 02/12/20 14:37 Pulse Ox 94 L 02/12/20 14:37 Intake & Output 02/12/20 02/12/20 02/13/20 06:59 18:59 06:59 Intake Total 900 Balance 900 Intake: Intake, IV Titration 900 Amount Piperacillin-Tazobactam 3 100 .375 gm In Sodium Chloride 0.9% 100 ml @ 25 mls/hr IVPB Q8H [facility] Rx#: [id number] Sodium Chloride 0.9% 1, 800 000 ml @ 100 mls/hr IV . Q10H [facility] Rx#:[id number] Other: Voiding Method Toilet # Voids 2 1 # Bowel Movements 0 2 - Exam -GENERAL: The patient is alert and oriented x3, not in any acute distress. Obese HEENT: Pupils are round and equally reacting to light. EOMI. No scleral icterus. No conjunctival pallor. Normocephalic, atraumatic. No pharyngeal erythema. No thyromegaly. CARDIOVASCULAR: S1 and S2 present. No murmurs, rubs, or gallops. PULMONARY: Chest is clear to auscultation, no wheezing or crackles. -ABDOMEN: Soft, LLQ tenderness, nondistended, normoactive bowel sounds. No palpable organomegaly. MUSCULOSKELETAL: No joint swelling or deformity. EXTREMITIES: No cyanosis, clubbing, or pedal edema. NEUROLOGICAL: Gross neurological examination did not reveal any focal deficits. SKIN: No rashes. no petechiae. - Labs CBC & Chem 7: 02/12/20 06:35 02/12/20 06:35 Labs: Abnormal Lab Results - Last 24 Hours (Table) 02/12/20 02/12/20 Range/Units 06:35 06:35 RBC 3.38 L (3.80-5.40) m/uL MCV 111.5 H D (80.0-100.0) fL MCHC 30.6 L (31.0-37.0) g/dL Lymphocytes # 0.8 L (1.0-4.8) k/uL Macrocytosis Marked A PT 28.9 H (9.9-11.9) sec INR 2.90 H (0.90-1.11) Microbiology - Last 24 Hours (Table) 02/10/20 13:04 Blood Culture - Preliminary Blood No Growth after 48 hours Assessment and Plan Assessment: Acute left-sided diverticulitis Atrial fibrillation on anticoagulation with Coumadin Hypertension Hyperlipidemia Mild intermittent asthma without acute exacerbation Multiple joint osteoarthritis History of DVT Osteoporosis Bilateral glaucoma Right knee replacement x2 Obesity with BMI of 32.9 Plan: PLAN: Patient has been started on Zosyn for acute diverticulitis. Symptomatic management of pain. Patient's INR is 3.8, will hold the dose of Coumadin today. Patient has been restarted on home medications. Further recommendations depending on the progress of the patient. This is a pleasant 84 years old female who presents with acute diverticulitis, continue with antibiotic, advance diet as tolerated. Surgery team on the case. Continue to monitor the patient. Follow-up INR level Labs and medication were reviewed.. Continue same treatment. Continue with symptomatic treatment. Resume home medication. Monitor lytes and vitals. DVT and GI prophylaxis. Further recommendationsas per clinical course of the patient DVT prophylaxis: Warfarin GI Prophylaxis: Ppi
[2020-02-12] MEDS: MONTELUKAST 10 MG TAB PO SCH (20:52)
[2020-02-12] MEDS: DULoxetine HCL 60 MG CAPSULE.DR PO SCH (20:53)
[2020-02-12] MEDS: ATORVASTATIN 20 MG TAB PO SCH (20:53)
[2020-02-12] MEDS: LATANOPROST 0.005% OPHTH DROPS 2.5 ML BTL BOTH EYES SCH (20:54)
[2020-02-13] MEDS: SODIUM CHLORIDE 0.9% 1,000 ML IV SCH ×3 (02:04→16:29)
[2020-02-13] MEDS: PIPERACILLIN-TAZOBACTAM 3.375 GM in SODIUM CHLORIDE 0.9% 100 ML IVPB SCH ×3 (04:10→21:21)
[2020-02-13] MEDS: BUDESONIDE 0.5 MG/2 ML NEBU INHALATION SCH ×2 (07:09→21:18)
[2020-02-13] MEDS: GABAPENTIN 300 MG CAP PO SCH ×2 (08:23→21:31)
[2020-02-13] MEDS: hydroCHLOROthiazide 12.5 MG CAP PO SCH ×2 (08:23→21:22)
[2020-02-13] MEDS: FOLIC ACID 1 MG TAB PO SCH (08:23)
[2020-02-13] MEDS: allopurinoL 100 MG TAB PO SCH ×2 (08:23→21:22)
[2020-02-13] MEDS: PANTOPRAZOLE 40 MG TABLET PO SCH (08:23)
[2020-02-13] MEDS: LOSARTAN 50 MG TAB PO SCH (08:24)
[2020-02-13] MEDS: METOPROLOL TARTRATE 25 MG TAB PO SCH ×3 (08:24→21:23)
[2020-02-13] MEDS: ISOSORBIDE MONONITRATE ER 60 MG TAB.ER.24H PO SCH (08:24)
[2020-02-13] MEDS: SUCRALFATE 1 GM TAB PO SCH (08:24)
--- NOTE | 2020-02-13 09:33 | P.PN ---
Subjective Progress Note Date: 02/13/20 CHIEF COMPLAINT: Diverticulitis HISTORY OF PRESENT ILLNESS: Patient is feeling better today. She has had some improvement in her pain. Her pain is located in left mid abdomen pain. She is tolerating a full liquid diet. She is having bowel movements that are loose. No blood noted in stool. Afebrile. PHYSICAL EXAM: VITAL SIGNS: Reviewed. GENERAL: Well-developed in no acute distress. HEENT: No sclera icterus. Extraocular movements grossly intact. Moist buccal mucosa. Head is atraumatic, normocephalic. ABDOMEN: Soft. Nondistended. Left mid abdominal tenderness NEUROLOGIC: Alert and oriented. Cranial nerves II through XII grossly intact. ASSESSMENT: 1. Acute diverticulitis PLAN: -Advance diet to regular -Continue IV antibiotics Physician Validation Intern note has been reviewed by physician. Signing provider agrees with the documented findings, assessment, and plan of care. Objective - Vital Signs Vital signs: Vital Signs Temp 98.2 F 02/13/20 07:16 Pulse 64 02/13/20 07:24 Resp 16 02/13/20 07:16 BP 130/67 02/13/20 07:16 Pulse Ox 97 02/13/20 07:16 Intake & Output 02/12/20 02/13/20 02/13/20 18:59 06:59 18:59 Intake Total 900 Balance 900 Intake: Intake, IV Titration 900 Amount Piperacillin-Tazobactam 3 100 .375 gm In Sodium Chloride 0.9% 100 ml @ 25 mls/hr IVPB Q8H [facility] Rx#: [id number] Sodium Chloride 0.9% 1, 800 000 ml @ 100 mls/hr IV . Q10H [facility] Rx#:[id number] Other: Voiding Method Toilet # Voids 1 1 # Bowel Movements 2 - Labs CBC & Chem 7: 02/12/20 06:35 02/12/20 06:35 Labs: Abnormal Lab Results - Last 24 Hours (Table) 02/12/20 Range/Units 06:35 PT 28.9 H (9.9-11.9) sec INR 2.90 H (0.90-1.11) Microbiology - Last 24 Hours (Table) 02/10/20 13:04 Blood Culture - Preliminary Blood No Growth after 48 hours
[2020-02-13 11:12] LABS: INR 2.63 (0.90-1.11); Prothrombin Time 26.4 sec (9.9-11.9)
--- NOTE | 2020-02-13 11:33 | P.PN ---
Subjective Ms. Hanley is an 84-year-old female with a past medical history of out,c PT, DVT, hypertension, hyperlipidemia, osteoarthritis, degenerative joint disease, bradycardia status post pacemaker placement, admitted to the hospital with a chief complaint of left lower abdominal pain for the past 2 days. Patient states that she started to notice mild pain in the left lower quadrant of her abdomen that has progressively gotten worse. Patient states that her pain was 10 out of 10 associated with some nausea. Patient denies having any episodes of throwing up. She denies having any diarrhea or constipation. Her last bowel movement was yesterday morning. She denies having any blood in her stool. Patient denies having any hematuria or dysuria. No vaginal discharge. She denies having any fevers chills or rigors. In the emergency at the time of admission patient's vitals temperature 9753 respiratory rate 18 blood pressure 104/54, saturating at 92%. She had KUB x-ray showing nonobstructive bowel gas pattern and an abdominal CAT scan inflammatory images adjacent to the distal descending colon compatible with acute diverticulitis. Patient had labs done showing white count of 19.4, hemoglobin 12.9, platelets 364. Sodium of 135, potassium 4.3, chloride 102, bicarb 26, BUN 31, creatinine 0.91. Lactic acid of 1.4 urine analysis showing small leukocyte esterase and negative for nitrites. 02/12/2020 This is a pleasant 84 years old female with multiple medical problems she was admitted with left lower quadrant abdominal pain secondary to diverticulitis, she still rates her abdominal pain is 4/10 which causing her some distress. Patient however had a good bowel movement this afternoon, it was very loose but no blood. The patient continue a liquid diet with no nausea vomiting. She is hemodynamically stable. No changes in the labs. Surgery team R following the case closely Patient remains on Zosyn and normal saline at 130, which is stopped today 02/13/2020 Patient feels better today and her left lower quadrant abdominal pain is down to 3/10, she has frequent bowel movements which were watery and loose pieces yesterday she had 5 and this morning she has 1. No nausea vomiting and she is tolerating full liquid diet. However patient does not feel she is ready to go home yet and she wants to wait for 1-2 days. Surgery team on the case as well and they haven't cleared the patient for discharge at. INR is 2.6 today. Objective - Vital Signs Vital signs: Vital Signs Temp 98.2 F 02/13/20 07:16 Pulse 64 02/13/20 07:24 Resp 16 02/13/20 07:16 BP 130/67 02/13/20 07:16 Pulse Ox 97 02/13/20 07:16 Intake & Output 02/12/20 02/13/20 02/13/20 18:59 06:59 18:59 Intake Total 900 Balance 900 Intake: Intake, IV Titration 900 Amount Piperacillin-Tazobactam 3 100 .375 gm In Sodium Chloride 0.9% 100 ml @ 25 mls/hr IVPB Q8H SUBH[facility] Rx#: [id number] Sodium Chloride 0.9% 1, 800 000 ml @ 100 mls/hr IV . Q10H [facility] Rx#:[id number] Other: Voiding Method Toilet Toilet # Voids 1 1 # Bowel Movements 2 - Exam -GENERAL: The patient is alert and oriented x3, not in any acute distress. Obese HEENT: Pupils are round and equally reacting to light. EOMI. No scleral icterus. No conjunctival pallor. Normocephalic, atraumatic. No pharyngeal erythema. No thyromegaly. CARDIOVASCULAR: S1 and S2 present. No murmurs, rubs, or gallops. PULMONARY: Chest is clear to auscultation, no wheezing or crackles. -ABDOMEN: Soft, LLQ tenderness, nondistended, normoactive bowel sounds. No palpable organomegaly. MUSCULOSKELETAL: No joint swelling or deformity. EXTREMITIES: No cyanosis, clubbing, or pedal edema. NEUROLOGICAL: Gross neurological examination did not reveal any focal deficits. SKIN: No rashes. no petechiae. - Labs CBC & Chem 7: 02/12/20 06:35 02/12/20 06:35 Labs: Abnormal Lab Results - Last 24 Hours (Table) 02/13/20 Range/Units 06:55 PT 26.4 H (9.9-11.9) sec INR 2.63 H (0.90-1.11) Microbiology - Last 24 Hours (Table) 02/10/20 13:04 Blood Culture - Preliminary Blood No Growth after 48 hours Assessment and Plan Assessment: Acute left-sided diverticulitis Atrial fibrillation on anticoagulation with Coumadin Hypertension Hyperlipidemia Mild intermittent asthma without acute exacerbation Multiple joint osteoarthritis History of DVT Osteoporosis Bilateral glaucoma Right knee replacement x2 Obesity with BMI of 32.9 Plan: PLAN: Patient has been started on Zosyn for acute diverticulitis. Symptomatic management of pain. Patient's INR is 3.8, will hold the dose of Coumadin today. Patient has been restarted on home medications. Further recommendations depending on the progress of the patient. This is a pleasant 84 years old female who presents with acute diverticulitis, continue with antibiotic, advance diet as tolerated. Surgery team on the case. Continue to monitor the patient. Follow-up INR level Labs and medication were reviewed.. Continue same treatment. Continue with symptomatic treatment. Resume home medication. Monitor lytes and vitals. DVT and GI prophylaxis. Further recommendationsas per clinical course of the patient DVT prophylaxis: Warfarin GI Prophylaxis: Ppi
--- NOTE | 2020-02-13 16:53 | CDI ---
Documentation Clarification Form Date: 02/13/2020 04:43:19 PM From: Simran Key CCS, CCDS Admit Date: 02/10/2020 01:11:00 PM Patient Name: Fabby Hanley I Visit Number: [id number] Discharge Date: ATTENTION: The Clinical Documentation Specialists (CDI) and [facility] Coding Staff appreciate your assistance in clarifying documentation. Please respond to the clarification below the line at the bottom and electronically sign. The CDI & [facility] Coding staff will review the response and follow-up if needed. Please note: Queries are made part of the Legal Health Record. If you have any questions, please contact the author of this message via ITS. Dr. Cooper Amaya. Sheet: Per the 02/09 History & Physical and subsequent Progress Notes: "Patient has been started on Zosyn for acute diverticulitis. Symptomatic management of pain. Patient's INR is 3.8, will hold the dose of Coumadin today." History/Risk Factors: Paroxysmal Atrial Fibrillation on penitentiary anticoagulation, DVT, COPD, Obesity w/BMI >30, Mild Intermittent Asthma, Hyperlipidemia, Hypertension. Clinical indicators: Presented to the ED on 02/09 with abdominal pain & constipation, some diarrhea. Admitted with Diverticulitis. Labs 02/09: PT 37.7^, INR 3.8^. 02/10: PT 29.1^, INR 2.86^ 02/11: PT 28.9^, INR 2.90^ 02/12: PT 26.4^, INR 2.63^ Treatment on admission: IV fluid 1,000 mls @ 999 mls/hr, IV fluid 1,000 mls @ 130, IV Toradol, IV Zosyn, IV Dilaudid. Coumadin held, restarted 02/10: 2.5 mg po daily. Clinical significance of diagnostic testing and treatment CANNOT be assumed or coded without physician documentation of significance if any. Please clarify what abnormal laboratory signifies: Abnormal Lab Value, please specify associated condition: Other, please specify Unable to determine (Last Revision: January 2017) the lab value is theraputic level rather than abnormal MTDD
[2020-02-13] MEDS: HYDROcodone/APAP 5-325MG 1 EACH TAB PO PRN ×2 (17:14→21:23)
[2020-02-13] MEDS ORDERED: WARFARIN 2.5 MG TAB PO ONE (18:00)
[2020-02-13 21:21] VITALS: RESP 16
[2020-02-13] MEDS: ATORVASTATIN 20 MG TAB PO SCH (21:22)
[2020-02-13] MEDS: DULoxetine HCL 60 MG CAPSULE.DR PO SCH (21:22)
[2020-02-13] MEDS: LATANOPROST 0.005% OPHTH DROPS 2.5 ML BTL BOTH EYES SCH (21:23)
[2020-02-13] MEDS: MONTELUKAST 10 MG TAB PO SCH (21:23)
[2020-02-14] MEDS: PIPERACILLIN-TAZOBACTAM 3.375 GM in SODIUM CHLORIDE 0.9% 100 ML IVPB SCH ×2 (04:12→13:36)
[2020-02-14] MEDS: FOLIC ACID 1 MG TAB PO SCH (07:11)
[2020-02-14] MEDS: ISOSORBIDE MONONITRATE ER 60 MG TAB.ER.24H PO SCH (07:11)
[2020-02-14] MEDS: PANTOPRAZOLE 40 MG TABLET PO SCH (07:11)
[2020-02-14] MEDS: GABAPENTIN 300 MG CAP PO SCH (07:11)
[2020-02-14] MEDS: hydroCHLOROthiazide 12.5 MG CAP PO SCH (07:11)
[2020-02-14] MEDS: LOSARTAN 50 MG TAB PO SCH (07:11)
[2020-02-14] MEDS: METOPROLOL TARTRATE 25 MG TAB PO SCH (07:11)
[2020-02-14] MEDS: SUCRALFATE 1 GM TAB PO SCH (07:12)
[2020-02-14] MEDS: allopurinoL 100 MG TAB PO SCH (07:12)
[2020-02-14 07:46] VITALS: BP 158/82; TEMP 97.9
[2020-02-14] MEDS: BUDESONIDE 0.5 MG/2 ML NEBU INHALATION SCH (08:30)
[2020-02-14 08:49] VITALS: PULSE 76
[2020-02-14 10:45] LABS: INR 2.6 (<1.2); Prothrombin Time 25.6 sec (9.0-12.0)
--- NOTE | 2020-02-14 13:41 | P.PN ---
Subjective Progress Note Date: 02/14/20 CHIEF COMPLAINT: Diverticulitis HISTORY OF PRESENT ILLNESS: Patient is followed for her diverticulitis. She has no abdominal pain this morning. She was able to tolerate a regular diet at dinner. She denies any nausea vomiting. She has been having loose stools. She had 3 loose stools yesterday. No blood reported. Denies any nausea or vomiting. Afebrile INR 2.6 PHYSICAL EXAM: VITAL SIGNS: Reviewed. GENERAL: Well-developed in no acute distress. HEENT: No sclera icterus. Extraocular movements grossly intact. Moist buccal mucosa. Head is atraumatic, normocephalic. ABDOMEN: Soft. Nondistended. Nontender NEUROLOGIC: Alert and oriented. Cranial nerves II through XII grossly intact. ASSESSMENT: 1. Acute diverticulitis PLAN: -Continue regular diet -Continue Augmentin for 7 days -Okay to discharge from surgical standpoint Physician Youth Manager note has been reviewed by physician. Signing provider agrees with the documented findings, assessment, and plan of care. Objective - Vital Signs Vital signs: Vital Signs Temp 97.9 F 02/14/20 07:00 Pulse 76 02/14/20 08:48 Resp 16 02/14/20 00:00 BP 158/82 02/14/20 07:00 Pulse Ox 93 L 02/14/20 07:00 Intake & Output 02/13/20 02/14/20 02/14/20 18:59 06:59 18:59 Other: Voiding Method Toilet Toilet # Voids 2 1 - Labs CBC & Chem 7: 02/12/20 06:35 02/12/20 06:35 Labs: Abnormal Lab Results - Last 24 Hours (Table) 02/14/20 Range/Units 09:53 PT 25.6 H (9.0-12.0) sec INR 2.6 H (<1.2) Microbiology - Last 24 Hours (Table) 02/10/20 13:04 Blood Culture - Preliminary Blood No Growth after 72 hours
[2020-02-14] MEDS ORDERED: WARFARIN 2.5 MG TAB PO ONE (18:00)
[2020-02-15] MEDS ORDERED: WARFARIN 5 MG TAB PO SCH (13:08)
--- NOTE | 2020-02-15 21:42 | P.DS ---
Providers Date of admission: 02/10/20 13:11 Expected date of discharge: 02/14/20 Attending physician: Ozzy Kitchen Consults: 02/11/20 14:35 Consult Physician Routine Consulting Provider: Edgardo Mancuso Consult Reason/Comments: abdominal pain Do you want consulting provider notified?: Already Contacted Primary care physician: Chalo [facility] Course: Presenting complaint: Abdominal pain History of presenting complaint: Ms. Hanley is an 84-year-old female with a past medical history of COPD,, DVT, hypertension, hyperlipidemia, osteoarthritis, degenerative joint disease, bradycardia status post pacemaker placement, admitted to the hospital with a chief complaint of left lower abdominal pain for the past 2 days. Patient states that she started to notice mild pain in the left lower quadrant of her abdomen that has progressively gotten worse. Patient states that her pain was 10 out of 10 associated with some nausea. Patient denies having any episodes of throwing up. She denies having any diarrhea or constipation. Her last bowel movement was yesterday morning. She denies having any blood in her stool. Patient denies having any hematuria or dysuria. No vaginal discharge. She denies having any fevers chills or rigors. Admitted with acute diverticulitis. Started on Zosyn Today-doing well. Tolerating a regular diet. Had a soft bowel movement. No abdominal pain. No fever no chills. Cleared by general surgery. Care was discussed with the patient. Questions answered. Consultation: Dr. Mata from general surgery On examination: VITAL SIGNS: 97.9, 81, 16, 158/82, 93% room air GENERAL APPEARANCE: Sitting up in a chair, comfortable HEENT: Normal external appearance of nose and ear. Oral cavity normal EYES: Pupils equal. Conjunctiva normal. NECK: JVD not raised. Mass not palpable. RESPIRATORY: Respiratory effort normal. Lungs clear to auscultation. CARDIOVASCULAR: First and second sounds normal. No edema. ABDOMEN: Soft. Liver and spleen not palpable. No tenderness. No mass palpable. PSYCHIATRY: Alert and oriented x3. Mood and affect normal. Investigations: White count 7 hemoglobin 11.5 platelets 332 INR 2.6 creatinine 0.8 Computed tomography scan of the abdomen-inflammatory changes in the distal descending colon. No evidence of abscess or free air. Assessment: -Acute colonic diverticulitis -COPD in an ex-smoker -Essential hypertension-hyperlipidemia -Primary osteoarthritis -Pacemaker for bradycardia -DJD -Chronic DVT for which patient is on Coumadin Disposition: Home Patient Condition at Discharge: Stable Plan - Discharge Summary Discharge Rx Participant: Yes New Discharge Prescriptions: New Amoxicillin/Potassium Clav [Augmentin 875-125 Tablet] 1 tab PO BID #14 tab Continue Gabapentin [Neurontin] 600 mg PO BID Isosorbide Mononitrate [Imdur] 60 mg PO DAILY Bimatoprost [Lumigan .01% Ophth Soln] 1 drop BOTH EYES HS Montelukast [Singulair] 10 mg PO HS allopurinoL [Zyloprim] 100 mg PO BID Omeprazole 20 mg PO BID Budesonide [Pulmicort] 0.5 mg INHALATION RT-BID Metoprolol Tartrate [Lopressor] 25 mg PO TID #0 ALPRAZolam [Xanax] 0.25 mg PO HS PRN PRN Reason: Insomnia DULoxetine HCL [Cymbalta] 60 mg PO HS Losartan [Cozaar] 50 mg PO DAILY Warfarin [Coumadin] 5 mg PO SUMOTUWETHSA@1700 hydroCHLOROthiazide [Hydrodiuril] 12.5 mg PO BID Simvastatin [Zocor] 40 mg PO W/SUPPER Warfarin [Coumadin] 2.5 mg PO FR@1700 Buprenorphine [Butrans 10 MCG/HOUR] 1 patch TRANSDERM TU Nitroglycerin Sl Tabs [Nitrostat] 0.4 mg SUBLINGUAL Q5M PRN PRN Reason: Chest Pain Denosumab [Prolia] 60 mg SQ Q180D Multivitamins, Thera [Multivitamin (formulary)] 1 tab PO DAILY L.acidoph,Paracasei, B.lactis [Probiotic] 1 cap PO DAILY Folic Acid 1 mg PO DAILY Calcium Carbonate/Vitamin D3 [Calcium 600-D3 20Mcg(800 Unit)] 1 tab PO DAILY Discontinued Sucralfate [Carafate] 1 gm PO TID No Action metHOTREXate sodium [Methotrexate] 25 mg PO FR Discharge Medication List Bimatoprost [Lumigan .01% Ophth Soln] 1 drop BOTH EYES HS 11/07/13 [History] Gabapentin [Neurontin] 600 mg PO BID 11/07/13 [History] Isosorbide Mononitrate [Imdur] 60 mg PO DAILY 11/07/13 [History] Montelukast [Singulair] 10 mg PO HS 11/07/13 [History] allopurinoL [Zyloprim] 100 mg PO BID 07/09/14 [History] Budesonide [Pulmicort] 0.5 mg INHALATION RT-BID 03/29/16 [History] Omeprazole 20 mg PO BID 03/29/16 [History] Metoprolol Tartrate [Lopressor] 25 mg PO TID #0 04/13/16 [Rx] ALPRAZolam [Xanax] 0.25 mg PO HS PRN 07/17/18 [History] metHOTREXate sodium [Methotrexate] 25 mg PO FR 07/17/18 [History] DULoxetine HCL [Cymbalta] 60 mg PO HS 11/22/18 [History] Losartan [Cozaar] 50 mg PO DAILY 11/22/18 [History] Warfarin [Coumadin] 5 mg PO SUMOTUWETHSA@1700 11/22/18 [History] Simvastatin [Zocor] 40 mg PO W/SUPPER 01/27/20 [History] Warfarin [Coumadin] 2.5 mg PO FR@1700 01/27/20 [History] hydroCHLOROthiazide [Hydrodiuril] 12.5 mg PO BID 01/27/20 [History] Buprenorphine [Butrans 10 MCG/HOUR] 1 patch TRANSDERM TU 02/10/20 [History] Calcium Carbonate/Vitamin D3 [Calcium 600-D3 20Mcg(800 Unit)] 1 tab PO DAILY 02/10/20 [History] Denosumab [Prolia] 60 mg SQ Q180D 02/10/20 [History] Folic Acid 1 mg PO DAILY 02/10/20 [History] L.acidoph,Paracasei, B.lactis [Probiotic] 1 cap PO DAILY 02/10/20 [History] Multivitamins, Thera [Multivitamin (formulary)] 1 tab PO DAILY 02/10/20 [History] Nitroglycerin Sl Tabs [Nitrostat] 0.4 mg SUBLINGUAL Q5M PRN 02/10/20 [History] Amoxicillin/Potassium Clav [Augmentin 875-125 Tablet] 1 tab PO BID #14 tab 02/14/20 [Rx] Follow up Appointment(s)/Referral(s): Edgardo Mancuso MD [Medical Doctor] - 02/21/20 10:45 am Chalo Cm DO [Primary Care Provider] - 02/19/20 10:15 am (This will be a telehealth visit. Dr. Cm will call you at this time and date for your appointment. Thank you.) Patient Instructions/Handouts: Diverticulitis (DC), Diverticulitis Diet (DC) Activity/Diet/Wound Care/Special Instructions: soft bland diet Discharge Disposition: HOME SELF-CARE
== END 2020-02-14 14:55 | disposition home or self-care (01) | DRG 392 ==
LOC: EC 09:10 → 4SSUR 13:11
PROVIDERS: ADMIT Hospitalist; ATTEND Hospitalist
DX: K57.32 Diverticulitis of large intestine without perforation or abscess without bleeding (principal); K59.00 Constipation, unspecified; I48.0 Paroxysmal atrial fibrillation; E66.9 Obesity, unspecified; Z68.32 Body mass index [BMI] 32.0-32.9, adult; E78.5 Hyperlipidemia, unspecified; G47.00 Insomnia, unspecified; H40.9 Unspecified glaucoma; I10 Essential (primary) hypertension; J44.9 Chronic obstructive pulmonary disease, unspecified; J45.20 Mild intermittent asthma, uncomplicated; M81.0 Age-related osteoporosis without current pathological fracture; M50.30 Other cervical disc degeneration, unspecified cervical region; M54.9 Dorsalgia, unspecified; M10.9 Gout, unspecified; Z88.5 Allergy status to narcotic agent; Z88.0 Allergy status to penicillin; Z79.01 Long term (current) use of anticoagulants; Z79.51 Long term (current) use of inhaled steroids; Z79.899 Other long term (current) drug therapy; K43.9 Ventral hernia without obstruction or gangrene; Z80.8 Family history of malignant neoplasm of other organs or systems; Z83.6 Family history of other diseases of the respiratory system; Z86.718 Personal history of other venous thrombosis and embolism; Z87.891 Personal history of nicotine dependence; Z90.49 Acquired absence of other specified parts of digestive tract; Z95.0 Presence of cardiac pacemaker; Z96.651 Presence of right artificial knee joint; Z98.42 Cataract extraction status, left eye; Z98.41 Cataract extraction status, right eye; Z90.89 Acquired absence of other organs
CPT/HCPCS: 36415; 74018; 74177; 80048; 80053; 81001; 82150; 82550; 83605; 83690; 85025; 85610; 87040; 94640; 96361; 96365; 96366; 96375; 99285

== ENCOUNTER 2020-02-27 13:42 | Inpatient (IN) | payer MEDICARE ==
[2020-02-27] MEDS ORDERED: MORPHINE SULFATE 2 MG/ML SYRINGE IVP STA (14:28)
[2020-02-27] MEDS ORDERED: ONDANSETRON 4 MG/2 ML VIAL IVP STA (14:28)
[2020-02-27] MEDS ORDERED: SODIUM CHLORIDE 0.9% 500 ML 500 ML IV STA (14:28)
--- NOTE | 2020-02-27 15:21 | ED ---
General Adult HPI <Pete Ambrosio - Last Filed: 02/27/20 17:34> - General Source: patient Mode of arrival: ambulatory Limitations: no limitations <Kelly Cantor - Last Filed: 02/27/20 19:02> - General Chief complaint: Weakness Stated complaint: Weakness Time Seen by Provider: 02/27/20 14:07 - History of Present Illness Initial comments: 84-year-old female presents to the emergency Department with complaints of left lower quadrant abdominal pain accompanied by nausea and weakness. States she w as hospitalized 2 weeks ago for diverticulitis and continues to have discomfort associated with this diagnosis; denies taking any medication to treat discomfort. Patient also states that she has become progressively weaker since discharge from the hospital. Reports multiple episodes of diarrhea per day and is experiencing fatigue and dizziness. Also complains of a poor appetite. Patient denies any recent rash, fever, chills, cough, shortness of breath, chest pain, constipation, back pain, numbness, tingling, hematuria, dysuria, urinary urgency, urinary frequency, headache, visual changes, or any other complaints. (Kelly Cantor) - Related Data Home Medications Medication Instructions Recorded Confirmed Bimatoprost [Lumigan .01% Ophth 1 drop BOTH EYES HS 11/07/13 02/27/20 Soln] Gabapentin [Neurontin] 600 mg PO BID 11/07/13 02/27/20 Isosorbide Mononitrate [Imdur] 60 mg PO DAILY 11/07/13 02/27/20 Montelukast [Singulair] 10 mg PO HS 11/07/13 02/27/20 allopurinoL [Zyloprim] 100 mg PO BID 07/09/14 02/27/20 Budesonide [Pulmicort] 0.5 mg INHALATION RT-BID 03/29/16 02/27/20 Omeprazole 20 mg PO BID 03/29/16 02/27/20 metHOTREXate sodium [Methotrexate] 25 mg PO FR 07/17/18 02/27/20 DULoxetine HCL [Cymbalta] 60 mg PO HS 11/22/18 02/27/20 Losartan [Cozaar] 50 mg PO DAILY 11/22/18 02/27/20 Warfarin [Coumadin] 5 mg PO SUMOTUWETHSA@1700 11/22/18 02/27/20 Simvastatin [Zocor] 40 mg PO W/SUPPER 01/27/20 02/27/20 Warfarin [Coumadin] 2.5 mg PO FR@1700 01/27/20 02/27/20 hydroCHLOROthiazide [Hydrodiuril] 12.5 mg PO BID 01/27/20 02/27/20 Buprenorphine [Butrans 10 MCG/HOUR] 1 patch TRANSDERM TH 02/10/20 02/27/20 Calcium Carbonate/Vitamin D3 1 tab PO DAILY 02/10/20 02/27/20 [Calcium 600-D3 20Mcg(800 Unit)] Denosumab [Prolia] 60 mg SQ Q180D 02/10/20 02/27/20 Folic Acid 1 mg PO DAILY 02/10/20 02/27/20 L.acidoph,Paracasei, B.lactis 1 cap PO DAILY 02/10/20 02/27/20 [Probiotic] Multivitamins, Thera [Multivitamin 1 tab PO DAILY 02/10/20 02/27/20 (formulary)] Nitroglycerin Sl Tabs [Nitrostat] 0.4 mg SUBLINGUAL Q5M PRN 02/10/20 02/27/20 Ondansetron Odt [Zofran Odt] 4 mg PO Q4H PRN 02/27/20 02/27/20 Triamcinolone 0.1% Cream [Kenalog 1 applicatio TOPICAL BID PRN 02/27/20 02/27/20 0.1% Cream] Previous Rx's Medication Instructions Recorded Metoprolol Tartrate [Lopressor] 25 mg PO TID #0 04/13/16 Allergies Allergy/AdvReac Type Severity Reaction Status Date / Time LUNA Inhibitors AdvReac Cough Verified 02/27/20 15:54 codeine AdvReac Nausea Verified 02/27/20 15:54 tape Allergy Unknown Uncoded 02/27/20 13:54 Review of Systems ROS Other: All systems not noted in ROS Statement are negative. <Pete Ambrosio - Last Filed: 02/27/20 17:34> ROS Other: All systems not noted in ROS Statement are negative. <Kelly Cantor - Last Filed: 02/27/20 19:02> ROS Statement: Those systems with pertinent positive or pertinent negative responses have been documented in the HPI. Past Medical History Past Medical History: Asthma, COPD, Deep Vein Thrombosis (DVT), Hyperlipidemia, Hypertension, Osteoarthritis (OA), Skin Disorder Additional Past Medical History / Comment(s): Hx. gout, osteoporosis, arthritis, DVT L upper arm, dermatitis, bilateral glaucoma, bradycardia- pacemaker, degenerative disc disease, cervical and back pain, History of Any Multi-Drug Resistant Organisms: None Reported Past Surgical History: Adenoidectomy, Appendectomy, Cholecystectomy, Hernia Repair, Orthopedic Surgery, Pacemaker, Tonsillectomy, Tubal Ligation Additional Past Surgical History / Comment(s): Hx throat nodule removed, mole left eyelid, D&C, bilat cataracts removed . RIGHT KNEE REPLACEMENT X 2. , hiatal hernia repair, I&D L inguinal abscess. Past Anesthesia/Blood Transfusion Reactions: No Reported Reaction, Motion Sickness Type of Cardiac Device: Permanent Pacemaker Device Placement Date:: October 2012 Past Psychological History: No Psychological Hx Reported Smoking Status: Former smoker Past Alcohol Use History: None Reported Past Drug Use History: None Reported - Past Family History Father Additional Family Medical History / Comment(s): Father pulmonary fibrosis Mother Family Medical History: Cancer Sister(s) Additional Family Medical History / Comment(s): melanoma <Kelly Cantor - Last Filed: 02/27/20 19:02> General Exam Limitations: no limitations (Well-developed, well-nourished female in no acute distress. Initial temperature 98.2, pulse 64, respirations 18, blood pressure 84/53, pulse ox 98% on room air.) General appearance: alert, in no apparent distress Eye exam: Present: normal appearance, PERRL ENT exam: Present: mucous membranes dry Respiratory exam: Present: normal lung sounds bilaterally. Absent: respiratory distress, wheezes, rales, rhonchi, stridor Cardiovascular Exam: Present: regular rate, normal rhythm, normal heart sounds. Absent: systolic murmur, diastolic murmur, rubs, gallop, clicks GI/Abdominal exam: Present: soft, tenderness (Left lower quadrant abdominal tenderness upon palpation), normal bowel sounds Neurological exam: Present: alert, oriented X3, CN II-XII intact Psychiatric exam: Present: normal affect, normal mood Skin exam: Present: warm, dry, intact, pallor <Kelly Cantor Last Filed: 02/27/20 19:02> Course <Pete Ambrosio - Last Filed: 02/27/20 17:34> Vital Signs 02/27/20 02/27/20 02/27/20 13:52 16:34 17:00 Temperature 98.2 F Pulse Rate 64 61 62 Respiratory 18 16 16 Rate Blood Pressure 84/53 100/47 112/49 O2 Sat by Pulse 98 95 94 L Oximetry 02/27/20 18:45 Temperature Pulse Rate 60 Respiratory 16 Rate Blood Pressure 124/62 O2 Sat by Pulse 97 Oximetry - Reevaluation(s) Reevaluation #1: 02/27/20 17:34 [employer] provision: Did review the case and did discuss the findings the patient will be admitted to Dr. Cortez's group. (HebertPete) Medical Decision Making - Lab Data Result diagrams: 02/27/20 15:06 02/27/20 15:06 <Pete Ambrosio - Last Filed: 02/27/20 17:34> - Lab Data Result diagrams: 02/27/20 15:06 02/27/20 15:06 - EKG Data EKG shows normal: sinus rhythm (Atrial paced), axis (Left axis deviation) Rate: normal - Radiology Data Radiology results: report reviewed <Kelly Cantor - Last Filed: 02/27/20 19:02> - Medical Decision Making 84-year-old female with a history of multiple abdominal surgeries, diverticulitis, COPD, and chronic DVT presents to the emergency department with complaints of left lower quadrant abdominal pain accompanied by persistent weakness, nausea, and decreased appetite. Patient states she was recently hospitalized for diverticulitis and has continued to have up to 4 episodes of diarrhea per day. Patient does appear pale and moderately uncomfortable; initially she was hypotensive which resolved with IV fluids. Patient was given morphine and Zofran with much improvement in discomfort. CT of the abdomen and pelvis was obtained with contrast and shows evidence of sigmoid diverticulosis and improving diverticulitis. Patient was found to have an elevated PT and INR, and a magnesium of 1.3. 2 g of magnesium were administered in the emergency department. This patient's care was discussed with my attending. Patient will be admitted for further evaluation and treatment; she is agreeable with this plan. (Kelly Cantor) - Lab Data Lab Results 11/25/20 11/25/20 11/25/20 Range/Units 15:06 15:06 15:06 WBC 5.9 (3.8-10.6) k/uL RBC 3.97 (3.80-5.40) m/uL Hgb 12.6 (11.4-16.0) gm/dL Hct 38.8 (34.0-46.0) % MCV 97.7 D (80.0-100.0) fL MCH 31.8 (25.0-35.0) pg MCHC 32.5 (31.0-37.0) g/dL RDW 15.8 H (11.5-15.5) % Plt Count 291 (150-450) k/uL MPV 7.9 Neutrophils % 61 % Lymphocytes % 20 % Monocytes % 17 % Eosinophils % 0 % Basophils % 1 % Neutrophils # 3.6 (1.3-7.7) k/uL Lymphocytes # 1.2 (1.0-4.8) k/uL Monocytes # 1.0 (0-1.0) k/uL Eosinophils # 0.0 (0-0.7) k/uL Basophils # 0.0 (0-0.2) k/uL Macrocytosis Slight PT 76.1 H (9.0-12.0) sec INR 7.4 H* (<1.2) APTT 55.3 H (22.0-30.0) sec Sodium (137-145) mmol/L Potassium (3.5-5.1) mmol/L Chloride (98-107) mmol/L Carbon Dioxide (22-30) mmol/L Anion Gap mmol/L BUN (7-17) mg/dL Creatinine (0.52-1.04) mg/dL Est GFR (CKD-EPI)AfAm (>60 ml/min/1.73 sqM) Est GFR (CKD-EPI)NonAf (>60 ml/min/1.73 sqM) Glucose (74-99) mg/dL Plasma Lactic Acid Lalit (0.7-2.0) mmol/L Calcium (8.4-10.2) mg/dL Magnesium (1.6-2.3) mg/dL Total Bilirubin (0.2-1.3) mg/dL AST (14-36) U/L ALT (4-34) U/L Alkaline Phosphatase (38-126) U/L Troponin I (0.000-0.034) ng/mL Total Protein (6.3-8.2) g/dL Albumin (3.5-5.0) g/dL Urine Color Yellow Urine Appearance Clear (Clear) Urine pH 5.5 (5.0-8.0) Ur Specific [place] 1.017 (1.001-1.035) Urine Protein Trace H (Negative) Urine Glucose (UA) Negative (Negative) Urine Ketones Negative (Negative) Urine Blood Negative (Negative) Urine Nitrite Negative (Negative) Urine Bilirubin Negative (Negative) Urine Urobilinogen <2.0 (<2.0) mg/dL Ur Leukocyte Esterase Negative (Negative) 02/27/20 02/27/20 02/27/20 Range/Units 15:06 15:06 15:06 WBC (3.8-10.6) k/uL RBC (3.80-5.40) m/uL Hgb (11.4-16.0) gm/dL Hct (34.0-46.0) % MCV (80.0-100.0) fL MCH (25.0-35.0) pg MCHC (31.0-37.0) g/dL RDW (11.5-15.5) % Plt Count (150-450) k/uL MPV Neutrophils % % Lymphocytes % % Monocytes % % Eosinophils % % Basophils % % Neutrophils # (1.3-7.7) k/uL Lymphocytes # (1.0-4.8) k/uL Monocytes # (0-1.0) k/uL Eosinophils # (0-0.7) k/uL Basophils # (0-0.2) k/uL Macrocytosis PT (9.0-12.0) sec INR (<1.2) APTT (22.0-30.0) sec Sodium 133 L (137-145) mmol/L Potassium 3.6 (3.5-5.1) mmol/L Chloride 100 (98-107) mmol/L Carbon Dioxide 25 (22-30) mmol/L Anion Gap 8 mmol/L BUN 31 H (7-17) mg/dL Creatinine 1.35 H (0.52-1.04) mg/dL Est GFR (CKD-EPI)AfAm 42 (>60 ml/min/1.73 sqM) Est GFR (CKD-EPI)NonAf 37 (>60 ml/min/1.73 sqM) Glucose 105 H (74-99) mg/dL Plasma Lactic Acid Lalit 1.6 (0.7-2.0) mmol/L Calcium 9.0 (8.4-10.2) mg/dL Magnesium 1.3 L (1.6-2.3) mg/dL Total Bilirubin 0.4 (0.2-1.3) mg/dL AST 43 H (14-36) U/L ALT 33 (4-34) U/L Alkaline Phosphatase 122 (38-126) U/L Troponin I <0.012 (0.000-0.034) ng/mL Total Protein 6.3 (6.3-8.2) g/dL Albumin 3.5 (3.5-5.0) g/dL Urine Color Urine Appearance (Clear) Urine pH (5.0-8.0) Ur Specific [place] (1.001-1.035) Urine Protein (Negative) Urine Glucose (UA) (Negative) Urine Ketones (Negative) Urine Blood (Negative) Urine Nitrite (Negative) Urine Bilirubin (Negative) Urine Urobilinogen (<2.0) mg/dL Ur Leukocyte Esterase (Negative) - EKG Data EKG Comments: EKG was obtained at 1453 and shows an atrial paced rhythm with prolonged AV conduction, left axis deviation, and right bundle branch block. Ventricular rate is 60, NJ interval 220, QRS duration 168, QT/QTc 430/130. Interpretation is abnormal ECG (Kelly Cantor) - Radiology Data CT of the abdomen and pelvis was obtained with contrast. Impression per Dr. Hayes includes sigmoid diverticulosis. There is clearing of the divert iculitis of the proximal sigmoid colon compared to prior imaging. (Kelly Cantor) Disposition <Peet Ambrosio - Last Filed: 02/27/20 17:34> Decision to Admit Reason: Admit from EC Decision Date: 02/27/20 Decision Time: 17:51 <Kelly Cantor - Last Filed: 02/27/20 19:02> Clinical Impression: Hypomagnesemia, Abdominal pain, Hypercoagulopathy, Diarrhea Disposition: ADMITTED IP TO THIS [facility] Condition: Serious
[2020-02-27 15:33] LABS: Basophils % (A) 1 %; Eosinophils % (A) 0 %; HCT 38.8 % (34.0-46.0); HGB 12.6 gm/dL (11.4-16.0); Lymphocytes # (A) 1.2 k/uL (1.0-4.8); Lymphocytes % (A) 20 %; MCH 31.8 pg (25.0-35.0); MCHC 32.5 g/dL (31.0-37.0); Macrocytosis Slight; Mean Platelet Volume 7.9; Monocytes % (A) 17 %; Neutrophils # (A) 3.6 k/uL (1.3-7.7); Neutrophils % (A) 61 %; Partial Thromboplastin Time 55.3 sec (22.0-30.0); Platelet Count 291 k/uL (150-450); Prothrombin Time 76.1 sec (9.0-12.0); RBC 3.97 m/uL (3.80-5.40); RDW 15.8 % (11.5-15.5); WBC 5.9 k/uL (3.8-10.6)
[2020-02-27 15:37] LABS: INR 7.4 (<1.2)
[2020-02-27 15:38] LABS: MCV 97.7 fL (80.0-100.0)
[2020-02-27 15:51] LABS: Albumin 3.5 g/dL (3.5-5.0); Magnesium 1.3 mg/dL (1.6-2.3); Potassium 3.6 mmol/L (3.5-5.1); Total Bilirubin 0.4 mg/dL (0.2-1.3); Total Protein 6.3 g/dL (6.3-8.2)
[2020-02-27 16:22] LABS: Appearance,Urine Clear (Clear); Bilirubin,Urine Negative (Negative); Blood,Urine Negative (Negative); Color,Urine Yellow; Glucose,Urine (UA) Negative (Negative); Ketones,Urine Negative (Negative); Leukocyte Esterase,Urine Negative (Negative); Nitrite,Urine Negative (Negative); PH, Urine 5.5 (5.0-8.0); Protein,Urine Trace (Negative); Specific Gravity,Urine 1.017 (1.001-1.035); Urobilinogen,Urine <2.0 mg/dL (<2.0)
--- NOTE | 2020-02-27 17:01 | CT ---
EXAMINATION TYPE: CT abdomen pelvis wo con DATE OF EXAM: 02/27/2020 COMPARISON: 02/10/2020 HISTORY: Left lower quadrant abdominal pain. History of diverticulitis. CT DLP: 964.8 mGycm Automated exposure control for dose reduction was used. Images obtained from the diaphragm to the floor the pelvis without contrast. There is some fibrotic changes at the lung bases. There is subsegmental atelectasis. There is pulmona ry emphysema. There is no pericardial effusion. There is no pleural effusion. There is mild pleural t hickening at the lung bases. There are clips from cholecystectomy. Liver shows no focal defect. Spleen is intact. There is no evid ence of pancreatic mass. Stomach is intact. There is no adrenal mass. Kidneys have normal size. There is 3 similar cortical cyst anterior upper p ole left kidney unchanged. There is no hydronephrosis. Ureters are not dilated. There is no retroperi toneal adenopathy. Bladder distends smoothly. There is no inguinal hernia. There is no free fluid in the pelvis. There are sigmoid diverticula without sign of diverticulitis. There is no mesenteric edema. There is no ascites or free air. There is no sign of a bowel obstructio n. Appendix is not seen. There is no sign of thickened appendix. There is marked thinning of the ante rior abdominal wall on the right side with atrophy of the anterior abdominal wall musculature. The lumbar vertebra show normal alignment. There is narrowing of disc spaces throughout the lumbar sp ine. There is no compression fracture. The hip joints are intact. Pelvic ring is intact. IMPRESSION: Sigmoid diverticulosis. There is clearing of the diverticulitis of the proximal sigmoid colon compare d to recent exam. COPD and pulmonary fibrosis. Atherosclerotic vascular disease.
[2020-02-27] MEDS: MAGNESIUM SULFATE-D5W PMX 1 GM in DEXTROSE/WATER 1 100ML.BAG IVPB SCH ×2 (17:41→18:45)
[2020-02-27] MEDS ORDERED: NALOXONE 0.4 MG/ML 1 ML VIAL IV PRN (17:49)
[2020-02-27] MEDS ORDERED: ONDANSETRON 4 MG/2 ML VIAL IVP PRN (17:49)
[2020-02-27] MEDS ORDERED: MORPHINE SULFATE 4 MG/ML SYRINGE IV PRN (17:49)
[2020-02-27] MEDS ORDERED: TRIAMCINOLONE 0.1% CREAM 80 GM TUBE TOPICAL PRN (19:04)
[2020-02-27] MEDS ORDERED: NITROGLYCERIN SL TABS 0.4 MG TAB SUBLINGUAL PRN (19:04)
[2020-02-27] MEDS ORDERED: ALPRAZolam 0.25 MG TAB PO PRN (19:07)
[2020-02-27] MEDS ORDERED: TEMAZEPAM 15 MG CAP PO PRN (19:07)
[2020-02-27] MEDS ORDERED: Potassium Replacement Protocol 1 EACH MISC MISCELLANE PRN (19:09)
[2020-02-27] MEDS ORDERED: Magnesium Replacement Protocol 1 EACH MISC MISCELLANE PRN (19:09)
[2020-02-27] MEDS: SODIUM CHLORIDE 0.9% 1,000 ML IV SCH (19:40)
[2020-02-27] MEDS ORDERED: BUDESONIDE 0.5 MG/2 ML NEBU INHALATION SCH (20:00)
[2020-02-27] MEDS: allopurinoL 100 MG TAB PO SCH (20:25)
[2020-02-27] MEDS: GABAPENTIN 300 MG CAP PO SCH (20:25)
[2020-02-27] MEDS: DULoxetine HCL 60 MG CAPSULE.DR PO SCH (20:25)
[2020-02-27] MEDS: MONTELUKAST 10 MG TAB PO SCH (20:25)
[2020-02-27] MEDS: METOPROLOL TARTRATE 25 MG TAB PO SCH (20:26)
[2020-02-27] MEDS: PANTOPRAZOLE 40 MG/10 ML VIAL IVP SCH (20:26)
[2020-02-27] MEDS: LATANOPROST 0.005% OPHTH DROPS 2.5 ML BTL BOTH EYES SCH (20:26)
[2020-02-27] MEDS: VANCOMYCIN ORAL SOLUTION 250 MG/5 ML BOTTLE PO SCH (20:50)
--- NOTE | 2020-02-27 20:57 | HP ---
HISTORY AND PHYSICAL CHIEF COMPLAINTS: Diarrhea, abdominal discomfort and weakness. HISTORY OF PRESENT ILLNESS: This 84-year-old woman with a past medical history of multiple medical problems, including asthma, COPD, DVT, hypertension, hyperlipidemia, DJD, being followed by Dr. Chalo Cm in the outpatient setting, was recently admitted with features of diverticulitis. Patient was treated with antibiotics. Patient was also given a course of Augmentin. The patient continued to have diarrhea, nausea and weakness, and because of increasing difficulty, the patient went to Dr. Mancuso's office and was directed to report to [facility] as a direct admission at this time. A CT scan of the abdomen was repeated which showed resolution of the colitis process. The patient is admitted for further evaluation and treatment. There is no history of any fever, rigor or chills. No history of headache, loss of consciousness, seizures. The patient also was noted to have Coumadin coagulopathy. PAST MEDICAL HISTORY: Asthma, COPD, DVT, hypertension, hyperlipidemia, history of DJD. HOME MEDICATIONS: Home medications are reviewed and include methotrexate, HydroDIURIL, Zyloprim, Coumadin, Kenalog, Zocor, Zofran, Nitrostat, multivitamins, Singulair, Lopressor, Cozaar, probiotic, Imdur, Neurontin, folic acid, Prolia, Cymbalta, calcium with vitamin D, Butrans, Pulmicort, Lumigan. ALLERGIES: LUNA INHIBITORS, CODEINE and TAPE. FAMILY HISTORY: History of cancer and pulmonary fibrosis in the family. SOCIAL HISTORY: Previous history of smoking. No history of current smoking or alcohol intake. REVIEW OF SYSTEMS: ENT: Diminished hearing. Diminished vision. CARDIOVASCULAR SYSTEM: No angina, palpitations. RESPIRATORY SYSTEM: No cough, hemoptysis. GI: As mentioned earlier. : No dysuria or retention. NERVOUS SYSTEM: No numbness, weakness. ALLERGY/IMMUNOLOGY: No asthma, hayfever. MUSCULOSKELETAL: As mentioned earlier. HEMATOLOGY/ONCOLOGY: No history of anemia. ENDOCRINE: No history of diabetes, hypothyroidism. CONSTITUTIONAL: As mentioned earlier. DERMATOLOGY: Negative. RHEUMATOLOGY: Negative. PSYCHIATRY: As mentioned earlier. PHYSICAL EXAMINATION: Patient is alert, oriented x3. Pulse 60, blood pressure 124/62, respirations 16, temperature 98.2, pulse ox 97% on 2 L. HEENT: Conjunctivae normal. NECK: No jugular venous distention. CARDIOVASCULAR SYSTEM: S1, S2 muffled. RESPIRATORY SYSTEM: Breath sounds diminished at the bases. A few scattered rhonchi and crackles. ABDOMEN: Soft. Mild diffuse discomfort. No guarding. No rigidity. No mass palpable. LEGS: No edema. No swelling. NERVOUS SYSTEM: Higher functions as mentioned earlier. Moves all 4 limbs. No focal motor or sensory deficit. LYMPHATICS: No lymph node palpable in neck, axillae or groin. SKIN: No ulcer, rash, bleeding. JOINTS: No active deforming arthropathy. LABS: CBC within normal limits. INR 7.4. Sodium 133, creatinine 1.35. Other labs are noted. ASSESSMENT: 1. Acute diarrhea, weakness with severe dehydration. 2. Acute renal failure secondary to prerenal acute tubular necrosis. 3. Hypomagnesemia. 4. Coumadin coagulopathy. 5. History of recent diverticulitis. 6. History of asthma, chronic obstructive pulmonary disease. 7. History of deep venous thrombosis. 8. Hypertension. 9. Hyperlipidemia. 10.History of degenerative joint disease. 11.History of gout. 12.History of dermatitis. 13.History of bilateral glaucoma. 14.History of bradycardia and pacemaker implantation. 15.History of cholecystectomy. 16.Remote history of nicotine dependence. 17.Obesity with body mass index of 33.9. 18.FULL CODE. RECOMMENDATIONS AND DISCUSSION: In this 84-year-old woman who presented with multiple complex medical issues, we will monitor the patient closely, continue the current medications, supplement magnesium. Will check the magnesium and monitor closely. Otherwise, continue the IV fluids. PT/OT evaluation. I would also recommend stool for C difficile colitis and I would also recommend COVID-19 testing. We will follow the patient closely with Dr. Mancuso. Prognosis is guarded because of multiple complex medical issues. Discussed with the patient and family at the bedside. A copy of this dictation is being forwarded to Dr. Cm, who is the primary physician. MMODL / IJN: [id number] /
[2020-02-28] MEDS: VANCOMYCIN ORAL SOLUTION 250 MG/5 ML BOTTLE PO SCH ×4 (03:10→20:39)
[2020-02-28] MEDS: CHERRY FLAVOR 60 ML BOTTLE PO PRN ×2 (03:10→20:39)
[2020-02-28] MEDS: MULTIVITAMINS, THERA 1 EACH TAB PO SCH (08:51)
[2020-02-28] MEDS: FOLIC ACID 1 MG TAB PO SCH (08:51)
[2020-02-28] MEDS: ISOSORBIDE MONONITRATE ER 60 MG TAB.ER.24H PO SCH (08:52)
[2020-02-28] MEDS: LACTOBACILLUS ACIDOPH & BULGAR 1 EACH PACKET PO SCH (08:52)
[2020-02-28] MEDS: CALCIUM CARB-VIT D 500MG-200UN 1 EACH TAB PO SCH (08:52)
[2020-02-28] MEDS: METOPROLOL TARTRATE 25 MG TAB PO SCH ×3 (08:52→23:49)
[2020-02-28] MEDS: GABAPENTIN 300 MG CAP PO SCH ×2 (08:52→20:40)
[2020-02-28] MEDS: SODIUM CHLORIDE 0.9% 1,000 ML IV SCH ×2 (08:52→23:52)
[2020-02-28] MEDS: allopurinoL 100 MG TAB PO SCH ×2 (08:52→20:40)
[2020-02-28] MEDS ORDERED: BUPRENORPHINE TOPICAL SCH (09:00)
[2020-02-28 09:06] LABS: Basophils % (A) 1 %; Eosinophils % (A) 1 %; HCT 33.3 % (34.0-46.0); HGB 10.7 gm/dL (11.4-16.0); Lymphocytes # (A) 0.9 k/uL (1.0-4.8); Lymphocytes % (A) 25 %; MCH 31.8 pg (25.0-35.0); MCV 99.2 fL (80.0-100.0); Macrocytosis Slight; Monocytes # (A) 0.6 k/uL (0-1.0); Monocytes % (A) 17 %; Neutrophils # (A) 1.8 k/uL (1.3-7.7); Neutrophils % (A) 54 %; Platelet Count 247 k/uL (150-450); RBC 3.36 m/uL (3.80-5.40); RDW 15.7 % (11.5-15.5); WBC 3.4 k/uL (3.8-10.6)
[2020-02-28] MEDS: FLUTICASONE 110 MCG INHALER INHALATION SCH ×2 (09:41→18:56)
[2020-02-28] MEDS: PANTOPRAZOLE 40 MG/10 ML VIAL IVP SCH ×2 (09:58→20:39)
--- NOTE | 2020-02-28 11:10 | P.GSCN ---
History of Present Illness Consult date: 02/28/20 Reason for Consult: Diarrhea History of present illness: This is an 84-year-old female who has a known history of diverticulitis. Patient presented to the hospital with complaints of abdominal pain and diarrhea. The patient's current CAT scan shows evidence of diverticulosis without evidence of diverticulitis. Patient states that she has had no further diarrhea since admission last night. Past Medical History Past Medical History: Asthma, COPD, Deep Vein Thrombosis (DVT), Hyperlipidemia, Hypertension, Osteoarthritis (OA), Skin Disorder Additional Past Medical History / Comment(s): Hx. gout, osteoporosis, RA, DVT L upper arm, dermatitis, bilateral glaucoma, bradycardia- pacemaker, degenerative disc disease, cervical and back pain History of Any Multi-Drug Resistant Organisms: None Reported Past Surgical History: Adenoidectomy, Appendectomy, Cholecystectomy, Hernia Repair, Orthopedic Surgery, Pacemaker, Tonsillectomy, Tubal Ligation Additional Past Surgical History / Comment(s): Hx throat nodule removed, mole left eyelid, D&C, bilat cataracts removed . RIGHT KNEE REPLACEMENT X 2., sh oulder surgeries , hiatal hernia repair, I&D L inguinal abscess. Past Anesthesia/Blood Transfusion Reactions: No Reported Reaction Type of Cardiac Device: Permanent Pacemaker Device Placement Date:: October 2012 Past Psychological History: No Psychological Hx Reported Additional Psychological History / Comment(s): . Smoking Status: Former smoker Past Alcohol Use History: None Reported Additional Past Alcohol Use History / Comment(s): Pt states she started smoking in her teens and quit in 1989 Past Drug Use History: None Reported - Past Family History Father Additional Family Medical History / Comment(s): Father pulmonary fibrosis Mother Family Medical History: Cancer Sister(s) Additional Family Medical History / Comment(s): melanoma Medications and Allergies Home Medications Medication Instructions Recorded Confirmed Type Bimatoprost [[place]umigan .01% Ophth 1 drop BOTH EYES HS 11/07/13 02/27/20 History Soln] Gabapentin [Neurontin] 600 mg PO BID 11/07/13 02/27/20 History Isosorbide Mononitrate [Imdur] 60 mg PO DAILY 11/07/13 02/27/20 History Montelukast [Singulair] 10 mg PO HS 11/07/13 02/27/20 History allopurinoL [Zyloprim] 100 mg PO BID 07/09/14 02/27/20 History Budesonide [Pulmicort] 0.5 mg INHALATION RT-BID 03/29/16 02/27/20 History Omeprazole 20 mg PO BID 03/29/16 02/27/20 History Metoprolol Tartrate [Lopressor] 25 mg PO TID #0 04/13/16 02/27/20 Rx metHOTREXate sodium [Methotrexate] 25 mg PO FR 07/17/18 02/27/20 History DULoxetine HCL [Cymbalta] 60 mg PO HS 11/22/18 02/27/20 History Losartan [Cozaar] 50 mg PO DAILY 11/22/18 02/27/20 History Warfarin [Coumadin] 5 mg PO SUMOTUWETHSA@1700 11/22/18 02/27/20 History Simvastatin [Zocor] 40 mg PO W/SUPPER 01/27/20 02/27/20 History Warfarin [Coumadin] 2.5 mg PO FR@1700 01/27/20 02/27/20 History hydroCHLOROthiazide [Hydrodiuril] 12.5 mg PO BID 01/27/20 02/27/20 History Buprenorphine [Butrans 10 MCG/HOUR] 1 patch TRANSDERM TH 02/10/20 02/27/20 History Calcium Carbonate/Vitamin D3 1 tab PO DAILY 02/10/20 02/27/20 History [Calcium 600-D3 20Mcg(800 Unit)] Denosumab [Prolia] 60 mg SQ Q180D 02/10/20 02/27/20 History Folic Acid 1 mg PO DAILY 02/10/20 02/27/20 History L.acidoph,Paracasei, B.lactis 1 cap PO DAILY 02/10/20 02/27/20 History [Probiotic] Multivitamins, Thera [Multivitamin 1 tab PO DAILY 02/10/20 02/27/20 History (formulary)] Nitroglycerin Sl Tabs [Nitrostat] 0.4 mg SUBLINGUAL Q5M PRN 02/10/20 02/27/20 History Ondansetron Odt [Zofran Odt] 4 mg PO Q4H PRN 02/27/20 02/27/20 History Triamcinolone 0.1% Cream [Kenalog 1 applicatio TOPICAL BID PRN 02/27/20 02/27/20 History 0.1% Cream] Allergies Allergy/AdvReac Type Severity Reaction Status Date / Time LUNA Inhibitors AdvReac Cough Verified 02/27/20 15:54 codeine AdvReac Nausea Verified 02/27/20 15:54 tape Allergy Unknown Uncoded 02/27/20 13:54 Surgical - Exam Vital Signs Temp Pulse Resp BP Pulse Ox 98.2 F 64 18 84/53 98 02/27/20 13:52 02/27/20 13:52 02/27/20 13:52 02/27/20 13:52 02/27/20 13:52 - General well developed, well nourished, no distress - Eyes PERRL - ENT normal pinna - Neck no masses - Respiratory normal expansion - Cardiovascular Rhythm: regular - Abdomen Abdomen: soft, non tender Results - Labs 02/28/20 07:21 02/27/20 15:06 Abnormal Lab Results - Last 24 Hours (Table) 02/27/20 02/27/20 02/27/20 Range/Units 15:06 15:06 15:06 WBC (3.8-10.6) k/uL RBC (3.80-5.40) m/uL Hgb (11.4-16.0) gm/dL Hct (34.0-46.0) % RDW 15.8 H (11.5-15.5) % Lymphocytes # (1.0-4.8) k/uL PT 76.1 H (9.0-12.0) sec INR 7.4 H* (<1.2) APTT 55.3 H (22.0-30.0) sec Sodium (137-145) mmol/L BUN (7-17) mg/dL Creatinine (0.52-1.04) mg/dL Glucose (74-99) mg/dL Magnesium (1.6-2.3) mg/dL AST (14-36) U/L Urine Protein Trace H (Negative) Coronavirus (PCR) (Not Detectd) 02/27/20 02/27/20 02/28/20 Range/Units 15:06 22:33 07:21 WBC 3.4 L (3.8-10.6) k/uL RBC 3.36 L (3.80-5.40) m/uL Hgb 10.7 L (11.4-16.0) gm/dL Hct 33.3 L (34.0-46.0) % RDW 15.7 H (11.5-15.5) % Lymphocytes # 0.9 L (1.0-4.8) k/uL PT (9.0-12.0) sec INR (<1.2) APTT (22.0-30.0) sec Sodium 133 L (137-145) mmol/L BUN 31 H (7-17) mg/dL Creatinine 1.35 H (0.52-1.04) mg/dL Glucose 105 H (74-99) mg/dL Magnesium 1.3 L (1.6-2.3) mg/dL AST 43 H (14-36) U/L Urine Protein (Negative) Coronavirus (PCR) Detected A (Not Detectd) Diabetes panel 02/27/20 Range/Units 15:06 Sodium 133 L (137-145) mmol/L Potassium 3.6 (3.5-5.1) mmol/L Chloride 100 (98-107) mmol/L Carbon Dioxide 25 (22-30) mmol/L BUN 31 H (7-17) mg/dL Creatinine 1.35 H (0.52-1.04) mg/dL Glucose 105 H (74-99) mg/dL Calcium 9.0 (8.4-10.2) mg/dL AST 43 H (14-36) U/L ALT 33 (4-34) U/L Alkaline Phosphatase 122 (38-126) U/L Total Protein 6.3 (6.3-8.2) g/dL Albumin 3.5 (3.5-5.0) g/dL Calcium panel 02/27/20 Range/Units 15:06 Calcium 9.0 (8.4-10.2) mg/dL Albumin 3.5 (3.5-5.0) g/dL Pituitary panel 02/27/20 Range/Units 15:06 Sodium 133 L (137-145) mmol/L Potassium 3.6 (3.5-5.1) mmol/L Chloride 100 (98-107) mmol/L Carbon Dioxide 25 (22-30) mmol/L BUN 31 H (7-17) mg/dL Creatinine 1.35 H (0.52-1.04) mg/dL Glucose 105 H (74-99) mg/dL Calcium 9.0 (8.4-10.2) mg/dL Adrenal panel 02/27/20 Range/Units 15:06 Sodium 133 L (137-145) mmol/L Potassium 3.6 (3.5-5.1) mmol/L Chloride 100 (98-107) mmol/L Carbon Dioxide 25 (22-30) mmol/L BUN 31 H (7-17) mg/dL Creatinine 1.35 H (0.52-1.04) mg/dL Glucose 105 H (74-99) mg/dL Calcium 9.0 (8.4-10.2) mg/dL Total Bilirubin 0.4 (0.2-1.3) mg/dL AST 43 H (14-36) U/L ALT 33 (4-34) U/L Alkaline Phosphatase 122 (38-126) U/L Total Protein 6.3 (6.3-8.2) g/dL Albumin 3.5 (3.5-5.0) g/dL Assessment and Plan Assessment: Resolving diarrhea. Patient will receive port therapy. No surgical intervention is planned.
[2020-02-28 12:16] LABS: African American GFR (CKD) 54.1 (60.0-200.0); Anion Gap 5.4 mmol/L (4.00-12.00); BUN/Creat Ratio 21.82 Ratio (12.00-20.00); Calcium 8.2 mg/dL (8.7-10.3); Carbon Dioxide 26.6 mmol/L (21.6-31.8); Magnesium 1.5 mg/dL (1.5-2.4); Non-African American GFR(CKD) 46.7 (60.0-200.0); Potassium 3.3 mmol/L (3.5-5.5)
[2020-02-28] MEDS: ATORVASTATIN 20 MG TAB PO SCH (15:50)
[2020-02-28] MEDS: HYDROcodone/APAP 5-325MG 1 EACH TAB PO PRN (15:55)
--- NOTE | 2020-02-28 16:06 | XR ---
EXAMINATION TYPE: XR knee 4V LT DATE OF EXAM: 02/28/2020 CLINICAL HISTORY: Pain. TECHNIQUE: Four views of the left knee are obtained. COMPARISON: Left knee x-ray August 31, 2017 FINDINGS: There is no acute fracture/dislocation evident in left knee. Meniscal calcification. Moder ate to severe tricompartment joint space loss greatest patellofemoral compartment with interval progr ession from 2018 study. Patellar articulation satisfactory and stable on the sunrise view. Overlying soft tissue is unremarkable. IMPRESSION: As above.
[2020-02-28] MEDS: MAGNESIUM SULFATE-D5W PMX 1 GM in DEXTROSE/WATER 1 100ML.BAG IVPB SCH ×2 (17:10→17:58)
--- NOTE | 2020-02-28 19:39 | XR ---
EXAMINATION TYPE: XR chest 1V portable DATE OF EXAM: 02/28/2020 CLINICAL HISTORY: Difficulty breathing progress study. TECHNIQUE: Single AP portable upright view of the chest is obtained. COMPARISON: Chest x-ray from October 23, 2017 FINDINGS: Elevated and eventrated right hemidiaphragm redemonstrated. Chronic right pleural changes bilaterally without suspicious new focal airspace opacity, pleural effusion, or pneumothorax seen. Mi ld cardiomegaly with dual-lead pacemaker and atherosclerotic aorta. Cholecystectomy clips. Degenerati ve change bilateral shoulders. IMPRESSION: Chronic changes and mild cardiomegaly without new suspicious acute pulmonary process.
[2020-02-28] MEDS: LATANOPROST 0.005% OPHTH DROPS 2.5 ML BTL BOTH EYES SCH (20:39)
[2020-02-28] MEDS: POTASSIUM CHLORIDE ER 20 MEQ TAB.ER PO SCH ×2 (20:40→23:49)
[2020-02-28] MEDS: MONTELUKAST 10 MG TAB PO SCH (20:40)
[2020-02-28] MEDS: DULoxetine HCL 60 MG CAPSULE.DR PO SCH (20:40)
[2020-02-28 20:42] LABS: C Reactive Protein 9.4 mg/L (<10.0)
[2020-02-28 20:49] LABS: Glucose,Whole Blood 111 mg/dL (75-99)
[2020-02-28] MEDS: INSULIN ASPART (NovoLOG) 100 UNIT/ML VIAL SQ SCH (21:31)
--- NOTE | 2020-02-28 23:39 | PN ---
PROGRESS NOTE DATE OF SERVICE: 02/28/2020 This 84-year-old woman was admitted with acute diarrhea, was found to be COVID- 19 positive, which could be an unusual presentation of COVID. The patient is complaining of severe tiredness and weakness because of diarrhea. Patient also complaining of significant swelling of the left knee also. The knee x-ray was done today which showed significant to moderate to severe intracompartmental joint space DJD, which is progress from the previous study. No joint effusion is obvious from the clinical exam. Orthopedic consultation has been sought. Patient will be closely monitored. Patient also had a surgical evaluation as well and as well as infectious disease evaluation. PAST MEDICAL HISTORY: Reviewed. REVIEW OF SYSTEMS: CARDIOVASCULAR SYSTEM: No angina. RESPIRATORY SYSTEM: As mentioned earlier. GI: As mentioned earlier. : No dysuria. NERVOUS SYSTEM: No numbness, weakness. CURRENT MEDICATIONS: Current medications are reviewed and include: [place], Zyloprim, Xanax, Lipitor, Os-Pablito with vitamin D5, folic acid, Neurontin, Imdur, Lactinex. PHYSICAL EXAMINATION: Patient is alert and oriented x3. Pulse is 64, blood pressure 128/67, respiration 20, temperature 98.3, pulse ox 97% on 2 L. HEENT: Conjunctivae normal. NECK: No jugular venous distention. CARDIOVASCULAR: S1, S2 muffled. RESPIRATORY: Breath sounds diminished at the bases. Scattered rhonchi and crackles. ABDOMEN: Soft, nontender. LEGS: No edema. No swelling. NERVOUS SYSTEM: No focal deficits. LABS: WBC 3.4, hemoglobin 10.7. INR is 6.71. Creatinine is . COVID-19 is positive from the [facility]. ASSESSMENT: 1. Acute COVID-19 infection with significant diarrhea, weakness, and severe dehydration with possibly gastrointestinal involvement. 2. Acute renal failure secondary to prerenal acute tubular necrosis. 3. Coumadin coagulopathy. 4. Hypomagnesemia. 5. Coumadin coagulopathy. 6. History of recent diverticulitis. 7. History of asthma, chronic obstructive pulmonary disease. 8. History of deep vein thrombosis. 9. Hypertension. 10.Hyperlipidemia. 11.History of degenerative joint disease. 12.History of gout. 13.History of dermatitis. 14.History of bilateral glaucoma. 15.History of bradycardia with pacemaker implantation. 16.History of cholecystectomy. 17.Remote history of nicotine dependence. 18.Obesity with body mass index of 33.9. 19.FULL CODE. RECOMMENDATIONS AND DISCUSSION: Recommend to continue current medications, continue symptomatic treatment. Otherwise, I would initiate symptomatic treatment including empiric vancomycin. Otherwise, continue with zinc and other conservative line of management. Prognosis guarded. Further recommendations to follow. MMODL / IJN: [id number] / MTDD
[2020-02-28] MEDS: ZINC SULFATE 220 MG CAP PO SCH (23:49)
[2020-02-28] MEDS: dexAMETHasone 2 MG TAB PO SCH (23:49)
[2020-02-29] MEDS: CHERRY FLAVOR 60 ML BOTTLE PO PRN (02:33)
[2020-02-29] MEDS: VANCOMYCIN ORAL SOLUTION 250 MG/5 ML BOTTLE PO SCH ×4 (02:33→20:39)
[2020-02-29 07:00] LABS: Basophils # (A) 0.1 k/uL (0-0.2); Basophils % (A) 1 %; Eosinophils % (A) 0 %; HCT 33.1 % (34.0-46.0); HGB 10.9 gm/dL (11.4-16.0); Lymphocytes # (A) 0.6 k/uL (1.0-4.8); Lymphocytes % (A) 10 %; MCH 32.3 pg (25.0-35.0); MCV 97.7 fL (80.0-100.0); Mean Platelet Volume 7.5; Monocytes # (A) 0.6 k/uL (0-1.0); Monocytes % (A) 10 %; Neutrophils # (A) 4.6 k/uL (1.3-7.7); Neutrophils % (A) 78 %; Platelet Count 281 k/uL (150-450); RBC 3.39 m/uL (3.80-5.40); RDW 15.2 % (11.5-15.5); WBC 5.9 k/uL (3.8-10.6)
[2020-02-29 07:27] LABS: Glucose,Whole Blood 177 mg/dL (75-99)
[2020-02-29] MEDS: FLUTICASONE 110 MCG INHALER INHALATION SCH ×2 (08:25→19:49)
[2020-02-29] MEDS: ZINC SULFATE 220 MG CAP PO SCH (08:42)
[2020-02-29] MEDS: FOLIC ACID 1 MG TAB PO SCH (08:42)
[2020-02-29] MEDS: GABAPENTIN 300 MG CAP PO SCH ×2 (08:42→20:39)
[2020-02-29] MEDS: METOPROLOL TARTRATE 25 MG TAB PO SCH ×3 (08:42→20:39)
[2020-02-29] MEDS: ISOSORBIDE MONONITRATE ER 60 MG TAB.ER.24H PO SCH (08:42)
[2020-02-29] MEDS: dexAMETHasone 2 MG TAB PO SCH (08:42)
[2020-02-29] MEDS: LACTOBACILLUS ACIDOPH & BULGAR 1 EACH PACKET PO SCH (08:42)
[2020-02-29] MEDS: CALCIUM CARB-VIT D 500MG-200UN 1 EACH TAB PO SCH (08:42)
[2020-02-29] MEDS: CHOLECALCIFEROL 1,000 UNIT TAB PO SCH (08:42)
[2020-02-29] MEDS: MULTIVITAMINS, THERA 1 EACH TAB PO SCH (08:42)
[2020-02-29] MEDS: allopurinoL 100 MG TAB PO SCH ×2 (08:43→20:39)
[2020-02-29] MEDS: ASCORBIC ACID 500 MG TAB PO SCH (08:43)
[2020-02-29] MEDS: INSULIN ASPART (NovoLOG) 100 UNIT/ML VIAL SQ SCH ×4 (08:43→20:40)
[2020-02-29] MEDS: PANTOPRAZOLE 40 MG/10 ML VIAL IVP SCH ×2 (08:43→20:39)
[2020-02-29 08:58] LABS: INR 6.71 (0.90-1.11); Prothrombin Time 62.9 sec (9.9-11.9)
[2020-02-29] MEDS: HYDROcodone/APAP 5-325MG 1 EACH TAB PO PRN ×2 (09:01→16:50)
[2020-02-29 09:30] LABS: African American GFR (CKD) 60.8 (60.0-200.0); Anion Gap 4.7 mmol/L (4.00-12.00); Calcium 8.4 mg/dL (8.7-10.3); Carbon Dioxide 26.3 mmol/L (21.6-31.8); Non-African American GFR(CKD) 52.4 (60.0-200.0); Potassium 3.7 mmol/L (3.5-5.5)
[2020-02-29] MEDS ORDERED: Magnesium Replacement Protocol 1 EACH MISC MISCELLANE PRN (11:33)
[2020-02-29 11:43] LABS: Glucose,Whole Blood 136 mg/dL (75-99)
[2020-02-29] MEDS: SODIUM CHLORIDE 0.9% 1,000 ML IV SCH (11:43)
[2020-02-29] MEDS: MAGNESIUM SULFATE-D5W PMX 1 GM in DEXTROSE/WATER 1 100ML.BAG IVPB SCH ×2 (11:43→13:54)
--- NOTE | 2020-02-29 11:46 | CONS ---
CONSULTATION DATE OF SERVICE: 02/28/2020. REASON FOR CONSULTATION: COVID-19 infection. HISTORY OF PRESENT ILLNESS: The patient is an 84-year-old female who was recently admitted to this facility and was treated for diverticulitis and subsequently discharged home on oral antibiotic. Patient now presenting back to the hospital yesterday after for evaluation of left lower quadrant abdominal pain and associated nausea and vomiting that has been progressing getting worse for the last week since the patient discharged from the hospital. The patient is currently complaining of pain to the left lower quadrant, more of a dull aching intensity about 5 to 6/10 and no radiation. No associated nausea, vomiting. Denies having any constipation. Did have some diarrhea. The patient denies having any chest pain. She also complaining of minimal shortness of breath and occasional cough. No sputum production. No URI symptoms. The patient is also complaining of pain to the left knee area that has been getting worse for the last few days. The patient denies any history of any trauma and extremity pain to the knee to be more of a sharp to dull aching and worse with movement or touching the knee. Currently did not have any swelling or redness to the knee area. On arrival to the ER, the patient was afebrile and no fever has been recorded. She is currently on 2 L nasal cannula saturating 97%. The patient did have a normal white count. Did not have admission. D-dimer was normal. CRP 9.4. Urine is negative. The patient did have a positive COVID testing. The patient did have a CT of abdomen and pelvis showing mild diverticulosis and clearing of the diverticulitis of proximal sigmoid colon compared to the recent exam. Significant pulmonary fibrosis. The patient did have a chest x-ray, chronic changes and mild cardiomegaly without new suspicion of acute pulmonary process. Infectious Disease was consulted with concern for positive COVID testing. REVIEW OF SYSTEMS: Positive points have been mentioned in HPI. Rest of the systems are negative. PAST MEDICAL HISTORY: Asthma, COPD, DVT, hypertension, hyperlipidemia, osteoarthritis and diverticulitis. PAST SURGICAL HISTORY: Adenoidectomy, appendectomy, cholecystectomy, hernia repair, pacemaker placement, tonsillectomy, tubal ligation. SOCIAL HISTORY: Remote history of smoking. No drinking or drug use. FAMILY HISTORY: Father with history of pulmonary fibrosis. ALLERGIES: LUNA INHIBITORS AND CODEINE. MEDICATIONS: The patient is currently on [place], Zyloprim, Xanax, vitamin C, Lipitor, dexamethasone, NovoLog, Lopressor. Singulair, Narcan, Nitrostat, Zofran, Protonix, Restoril, zinc sulfate and vancomycin 250 p.o. q.6 hours. PHYSICAL EXAMINATION: VITAL SIGNS: Blood pressure 128/67 with a pulse of 64, temperature 98.2. She is 97% on 2 L nasal cannula. GENERAL DESCRIPTION: An elderly female lying in bed in no distress. No tachypnea or accessory muscles of respiration use. HEENT: Shows pallor. No scleral icterus. Oral mucous membranes are dry. NECK: Trachea central. No thyromegaly. LUNGS: Unlabored breathing, decreased breath sounds in the base, with no wheeze. HEART S1, S2. Regular rate and rhythm. ABDOMEN: Soft, no tenderness. No guarding or rigidity. EXTREMITIES: No edema of the feet. SKIN: No rash or mass palpable. NEUROLOGICAL: The patient is awake, alert, oriented. Mood and affect normal. LABS: Hemoglobin is 10.8, white count 3.4, , INR 6.7. D-dimer is normal. Liver enzymes and AST mildly elevated, CRP is only 9.4. Urine is negative. Chest x-ray not showing acute changes. IMPRESSION/PLAN: 1. Patient admitted to the hospital with predominantly left lower abdominal pain and this patient with recent admission for acute diverticulitis with overall clearing of the diverticulitis on the CT. 2. The patient with COVID testing positive. Mild respiratory symptoms. No significant hypoxemia and the patient did have a normal CRP and chest x-ray was negative for any acute infiltrate. Clinically doubt acute COVID-19 infection with the positive test from infection that the patient may have acquired previously and already recovered from it. PLAN: 1. The patient has been started on dexamethasone and she is to continue. She is already supratherapeutic on her INR. 2. Droplet isolation and respiratory support. 3. We will follow on her clinical condition to further adjust medication if needed. Thank you for this consultation. Will follow this patient along with you. MMODL / IJN: [id number] /
--- NOTE | 2020-02-29 12:09 | P.PN ---
Progress Note - Text Progress Note Date: 02/29/20 Patient states he feels better. She denies any significant bowel movements. On exam her vital signs are stable. Abdomen soft. Resolving diarrhea. Patient will have her diet advanced.
[2020-02-29] MEDS: DOCUSATE 100 MG CAP PO SCH ×2 (13:53→13:59)
[2020-02-29] MEDS ORDERED: DOCUSATE 100 MG CAP PO PRN (13:59)
[2020-02-29 16:14] LABS: INR 6.14 (0.90-1.11)
[2020-02-29 16:43] LABS: Glucose,Whole Blood 141 mg/dL (75-99)
[2020-02-29] MEDS: ATORVASTATIN 20 MG TAB PO SCH (16:43)
--- NOTE | 2020-02-29 16:43 | PN ---
PROGRESS NOTE DATE OF SERVICE: 02/29/2020 This 84-year-old woman who was admitted with acute COVID-19 infection and significant diarrhea also had possibly an abnormal presentation of COVID-19. The patient also had severe dehydration and gastrointestinal involvement. The patient also has significant gait dysfunction and significant difficulties with left knee joint with swelling. Orthopedics has recommended outpatient followup. Past medical history reviewed. Dr. Salas has also seen the patient. REVIEW OF SYSTEMS: CARDIOVASCULAR SYSTEM: No angina, palpitations. RESPIRATORY SYSTEM: As mentioned earlier. GI: As mentioned earlier. : No dysuria or retention. NERVOUS SYSTEM: No numbness, weakness. CURRENT MEDICATIONS: Reviewed. They include [place], Zyloprim, Xanax, vitamin C, Lipitor, Os-Pablito with vitamin D, michelle syrup, vitamin D3, Hexadrol, NovoLog, Imdur. Doses are reviewed. PHYSICAL EXAMINATION: Patient is alert, oriented x3. The pulse is 64, blood pressure 120/66, respirations 16, temperature 98.1, pulse ox 94% on room air. HEENT: Conjunctivae normal. NECK: No jugular venous distention. CARDIOVASCULAR SYSTEM: S1, S2 muffled. RESPIRATORY SYSTEM: Breath sounds diminished at the bases. A few scattered rhonchi. ABDOMEN: Soft, non-tender. NERVOUS SYSTEM: No focal deficit. LABS: Hemoglobin 10.9, INR 6.14. Otherwise, Accu-Cheks are noted. ASSESSMENT: 1. Acute COVID-19 infection with significant diarrhea, weakness, severe dehydration with possible gastrointestinal involvement. 2. Acute renal failure, possibly secondary to prerenal acute tubular necrosis. 3. Coumadin coagulopathy. 4. Hypomagnesemia. 5. History of recent diverticulitis. 6. History of asthma, chronic obstructive pulmonary disease. 7. History of deep vein thrombosis. 8. Hypertension. 9. Hyperlipidemia. 10.History of degenerative joint disease. 11.History of gout. 12.History of dermatitis. 13.History of bilateral glaucoma. 14.History of bradycardia and pacemaker implantation. 15.History of cholecystectomy. 16.Remote history of nicotine dependence. 17.Obesity with a body mass index of 33.9. 18.FULL CODE. RECOMMENDATIONS AND DISCUSSION: I recommend to continue current medications, continue with the monitoring, symptomatic treatment. Continue with dexamethasone. Hold Coumadin. Monitor PT and INR closely. There is no active bleeding. Prognosis is extremely guarded because of multiple complex medical issues, as mentioned earlier. Closely follow with Infectious Disease. Guarded prognosis. Further recommendations to follow. MMODL / IJN: [id number] /
[2020-02-29 20:12] LABS: Glucose,Whole Blood 156 mg/dL (75-99)
[2020-02-29] MEDS: MONTELUKAST 10 MG TAB PO SCH (20:39)
[2020-02-29] MEDS: LATANOPROST 0.005% OPHTH DROPS 2.5 ML BTL BOTH EYES SCH (21:21)
[2020-02-29] MEDS: DULoxetine HCL 60 MG CAPSULE.DR PO SCH (21:21)
--- NOTE | 2020-02-29 22:46 | PN ---
PROGRESS NOTE DATE OF SERVICE: 02/29/2020 REASON FOR FOLLOWUP: [id number]. INTERVAL HISTORY: The patient is currently afebrile. The patient is feeling better. She is breathing comfortably, currently on room air. Denies having any chest pain or cough. No nausea, no vomiting. Abdominal pain is improved. No diarrhea. PHYSICAL EXAMINATION: Blood pressure 137/73 with a pulse of 63, temperature 98.2. She is 94% on room air. General description is an elderly female lying in bed in no distress. RESPIRATORY SYSTEM: Unlabored breathing with decreased intensity of breath sounds. No wheeze. HEART: S1, S2. Regular rate and rhythm. ABDOMEN: Soft. No tenderness. LABS: Hemoglobin is 10.9, white count 5.9. D-dimer was negative. Creatinine 1.0. DIAGNOSTIC IMPRESSION AND PLAN: 1. Patient admitted to hospital predominantly with abdominal pain in this patient recently treated for diverticulitis. CT did show overall resolution of diverticulitis and there was no evidence of any colitis. Clinically doubt C difficile colitis; hence vancomycin should be discontinued. 2. Positive COVID testing with minimal infiltrate on chest x-ray. Patient's symptoms have resolved and she is feeling better. Currently being treated with dexamethasone, zinc sulfate and Lovenox; to continue and monitor her clinical course closely. MMODL / IJN: [id number] /
[2020-03-01] MEDS: SODIUM CHLORIDE 0.9% 1,000 ML IV SCH ×3 (02:49→23:56)
[2020-03-01 06:45] LABS: Basophils % (A) 0 %; Eosinophils % (A) 0 %; HCT 33.2 % (34.0-46.0); HGB 10.9 gm/dL (11.4-16.0); Lymphocytes # (A) 0.6 k/uL (1.0-4.8); Lymphocytes % (A) 9 %; MCV 97.1 fL (80.0-100.0); Mean Platelet Volume 7.3; Monocytes # (A) 0.5 k/uL (0-1.0); Monocytes % (A) 8 %; Neutrophils # (A) 5.9 k/uL (1.3-7.7); Neutrophils % (A) 83 %; Platelet Count 302 k/uL (150-450); RBC 3.41 m/uL (3.80-5.40); RDW 15.2 % (11.5-15.5); WBC 7.2 k/uL (3.8-10.6)
[2020-03-01 07:08] LABS: Glucose,Whole Blood 141 mg/dL (75-99)
[2020-03-01] MEDS: FLUTICASONE 110 MCG INHALER INHALATION SCH ×2 (08:10→19:12)
[2020-03-01] MEDS: PANTOPRAZOLE 40 MG/10 ML VIAL IVP SCH ×2 (08:49→20:35)
[2020-03-01] MEDS: ASCORBIC ACID 500 MG TAB PO SCH (08:49)
[2020-03-01] MEDS: dexAMETHasone 2 MG TAB PO SCH (08:49)
[2020-03-01] MEDS: CALCIUM CARB-VIT D 500MG-200UN 1 EACH TAB PO SCH (08:49)
[2020-03-01] MEDS: ZINC SULFATE 220 MG CAP PO SCH (08:49)
[2020-03-01] MEDS: CHOLECALCIFEROL 1,000 UNIT TAB PO SCH (08:50)
[2020-03-01] MEDS: FOLIC ACID 1 MG TAB PO SCH (08:50)
[2020-03-01] MEDS: MULTIVITAMINS, THERA 1 EACH TAB PO SCH (08:50)
[2020-03-01] MEDS: GABAPENTIN 300 MG CAP PO SCH ×2 (08:50→20:34)
[2020-03-01] MEDS: INSULIN ASPART (NovoLOG) 100 UNIT/ML VIAL SQ SCH ×4 (08:50→20:35)
[2020-03-01] MEDS: ISOSORBIDE MONONITRATE ER 60 MG TAB.ER.24H PO SCH (08:50)
[2020-03-01] MEDS: LACTOBACILLUS ACIDOPH & BULGAR 1 EACH PACKET PO SCH (08:50)
[2020-03-01] MEDS: METOPROLOL TARTRATE 25 MG TAB PO SCH ×3 (08:50→20:34)
[2020-03-01] MEDS: allopurinoL 100 MG TAB PO SCH ×2 (08:50→20:34)
[2020-03-01 08:53] LABS: African American GFR (CKD) 93.5 (60.0-200.0); BUN/Creat Ratio 27.14 Ratio (12.00-20.00); Calcium 8.4 mg/dL (8.7-10.3); Magnesium 1.7 mg/dL (1.5-2.4); Non-African American GFR(CKD) 80.7 (60.0-200.0); Potassium 3.9 mmol/L (3.5-5.5)
[2020-03-01 11:18] LABS: Glucose,Whole Blood 113 mg/dL (75-99)
[2020-03-01] MEDS ORDERED: PHYTONADIONE ORAL 5 MG/5 ML ORAL.SYRG PO STA ×2 (12:15→19:54)
--- NOTE | 2020-03-01 12:22 | P.PN ---
Progress Note - Text Progress Note Date: 03/01/20 The patient is doing better. She's had a few bowel movements overnight. On exam vital signs are stable. Abdomen soft. Resolving diarrhea. Patient will mostly be discharged home the next 48 hours.
[2020-03-01] MEDS ORDERED: PHYTONADIONE ORAL 5 MG/5 ML ORAL.SYRG PO ONE (13:45)
[2020-03-01 16:38] LABS: Glucose,Whole Blood 118 mg/dL (75-99)
[2020-03-01] MEDS: ATORVASTATIN 20 MG TAB PO SCH (16:55)
[2020-03-01 19:29] LABS: Prothrombin Time 56.9 sec (9.0-12.0)
[2020-03-01 19:43] LABS: INR 5.7 (<1.2)
[2020-03-01 20:28] LABS: Glucose,Whole Blood 124 mg/dL (75-99)
[2020-03-01] MEDS: MONTELUKAST 10 MG TAB PO SCH (20:34)
[2020-03-01] MEDS: LATANOPROST 0.005% OPHTH DROPS 2.5 ML BTL BOTH EYES SCH (20:34)
[2020-03-01] MEDS: DULoxetine HCL 60 MG CAPSULE.DR PO SCH (20:34)
--- NOTE | 2020-03-01 23:04 | PN ---
PROGRESS NOTE DATE OF SERVICE: 03/01/2020 This 84-year-old woman who was admitted Covid 19 infection with significant diarrhea and GI manifestation. Patient being closely monitored. Patient also had acute renal failure. The patient also has significant diarrhea, which is improving at this time. Dr. Salas is following the patient. INR is 6.20. The patient has epistaxis. Vitamin K has been given. Past medical history reviewed. REVIEW OF SYSTEMS: ENT as mentioned earlier. Cardiovascular: No angina or palpitations. Respirations as mentioned earlier. GI: As mentioned earlier. : No dysuria. MEDICATIONS: Reviewed and include: [place] 5 mg. Zyloprim, Xanax. Vitamin C, Lipitor, Os-Pablito with vitamin D, Colace, Cymbalta, folic acid, Lactinex, Lopressor, multivitamins, Narcan, Zofran. Protonix. PHYSICAL EXAM: Patient is alert and oriented times three. Pulse 68, blood pressure 172/80, respiration 18, temperature 97.2, pulse ox 94% on room air. HEENT: Conjunctivae normal. NECK: No JVD. CARDIOVASCULAR: S1, S2 muffled. RESPIRATORY SYSTEM: Breath sounds diminished at the bases. A few scattered rhonchi and crackles. ABDOMEN: Soft. Nervous system: No focal deficits. LABS: Labs are at this time shows WBC 7.2, hemoglobin 10.9. Yesterday's hemoglobin was 10.9 and INR 6.2. Sodium 130, potassium 3.9, glucose 146 and calcium is 8.4, and COVID-19 positive. ASSESSMENT: 1. Acute COVID-19 infection with significant diarrhea, weakness, severe dehydration with possible GI symptoms involvement. 2. Acute renal failure possibly secondary to prerenal acute tubular necrosis. 3. Acute epistaxis. 4. Coumadin coagulopathy. 5. Hypomagnesemia. 6. History of recent diverticulitis. 7. History of asthma, chronic obstructive pulmonary disease. 8. History of deep vein thrombosis. 9. Hypertension. 10.Hyperlipidemia. 11.Gait dysfunction. 12.History of degenerative joint disease. 13.History of gout. 14.History of dermatitis. 15.History of bilateral glaucoma. 16.History of bradycardia. Pacemaker implantation. 17.History of cholecystectomy. 18.Remote history of nicotine dependence. 19.Obesity with body mass index of 33.9. 20.FULL CODE. RECOMMENDATIONS AND DISCUSSION: I recommend to continue current medications, management and symptomatic treatment. Otherwise at this time, the CRP is within normal limits. I would also recommend serum uric acid. Otherwise, vitamin K 5 mg and repeat PT/INR and local treatment for epistaxis. Guarded prognosis. Further recommendations will follow. Repeat labs will be ordered. MMODL / IJN: [id number] /
--- NOTE | 2020-03-02 04:43 | PN ---
PROGRESS NOTE DATE OF SERVICE: 03/01/2020 REASON FOR FOLLOW UP: 1. Positive COVID-19 testing. 2. Diarrhea. INTERVAL HISTORY: The patient is currently afebrile. She is breathing comfortably. Patient denies having any chest pain, shortness of breath or cough. No abdominal pain. Did have some diarrhea, about three stools today. PHYSICAL EXAMINATION: Her blood pressure is 148/84 with a pulse of 61, temperature 97.6. She is 95% on room air. General description is a middle-aged female lying in bed in no distress. Respiratory system: Unlabored breathing, decreased breath sounds at the bases. No wheeze. HEART: S1, S2. Regular rate and rhythm. ABDOMEN: Soft, no tenderness. LABS: No new labs have been obtained today. IMPRESSION/PLAN: 1. Patient admitted to the hospital with generalized weakness, no energy and abdominal pain with recent treatment for diverticulitis and also complaining of some diarrhea. Will add Questran for symptomatic relief. 2. Patient with positive COVID testing. No evidence of multifocal infiltrate seen on the chest x-ray and patient not hypoxic. Continue with dexamethasone, zinc and Lovenox and continue supportive care. MMODL / IJN: [id number] /
[2020-03-02 05:58] LABS: Basophils % (A) 0 %; Eosinophils % (A) 0 %; HCT 30.8 % (34.0-46.0); HGB 10.3 gm/dL (11.4-16.0); Lymphocytes # (A) 0.6 k/uL (1.0-4.8); Lymphocytes % (A) 8 %; MCH 32.4 pg (25.0-35.0); MCHC 33.6 g/dL (31.0-37.0); MCV 96.5 fL (80.0-100.0); Mean Platelet Volume 7.8; Monocytes # (A) 0.7 k/uL (0-1.0); Monocytes % (A) 9 %; Neutrophils # (A) 6.7 k/uL (1.3-7.7); Neutrophils % (A) 82 %; Platelet Count 349 k/uL (150-450); RBC 3.19 m/uL (3.80-5.40); RDW 15.2 % (11.5-15.5); WBC 8.1 k/uL (3.8-10.6)
[2020-03-02 07:05] LABS: Glucose,Whole Blood 125 mg/dL (75-99)
[2020-03-02] MEDS: INSULIN ASPART (NovoLOG) 100 UNIT/ML VIAL SQ SCH ×4 (08:03→20:44)
[2020-03-02] MEDS: allopurinoL 100 MG TAB PO SCH ×2 (08:33→20:43)
[2020-03-02] MEDS: METOPROLOL TARTRATE 25 MG TAB PO SCH ×3 (08:33→20:43)
[2020-03-02] MEDS: PANTOPRAZOLE 40 MG/10 ML VIAL IVP SCH (08:33)
[2020-03-02] MEDS: MULTIVITAMINS, THERA 1 EACH TAB PO SCH (08:33)
[2020-03-02] MEDS: LACTOBACILLUS ACIDOPH & BULGAR 1 EACH PACKET PO SCH (08:33)
[2020-03-02] MEDS: FOLIC ACID 1 MG TAB PO SCH (08:33)
[2020-03-02] MEDS: dexAMETHasone 2 MG TAB PO SCH (08:33)
[2020-03-02] MEDS: CALCIUM CARB-VIT D 500MG-200UN 1 EACH TAB PO SCH (08:34)
[2020-03-02] MEDS: ISOSORBIDE MONONITRATE ER 60 MG TAB.ER.24H PO SCH (08:34)
[2020-03-02] MEDS: CHOLECALCIFEROL 1,000 UNIT TAB PO SCH (08:34)
[2020-03-02] MEDS: ZINC SULFATE 220 MG CAP PO SCH (08:34)
[2020-03-02] MEDS: GABAPENTIN 300 MG CAP PO SCH ×2 (08:34→20:44)
[2020-03-02] MEDS: FLUTICASONE 110 MCG INHALER INHALATION SCH ×2 (08:35→19:23)
[2020-03-02] MEDS: CHOLESTYRAMINE (WITH SUGAR) 4 GM PACKET PO SCH ×2 (10:12→17:25)
[2020-03-02 10:49] LABS: INR 2.45 (0.90-1.11); Prothrombin Time 24.8 sec (9.9-11.9)
[2020-03-02 11:06] LABS: African American GFR (CKD) 79.6 (60.0-200.0); Anion Gap 6.6 mmol/L (4.00-12.00); Calcium 8.5 mg/dL (8.7-10.3); Carbon Dioxide 23.4 mmol/L (21.6-31.8); Non-African American GFR(CKD) 68.7 (60.0-200.0); Potassium 3.8 mmol/L (3.5-5.5)
[2020-03-02 11:38] LABS: Glucose,Whole Blood 101 mg/dL (75-99)
[2020-03-02] MEDS: HYDROcodone/APAP 5-325MG 1 EACH TAB PO PRN (11:38)
[2020-03-02] MEDS: SODIUM CHLORIDE 0.9% 1,000 ML IV SCH (11:38)
[2020-03-02] MEDS ORDERED: FUROSEMIDE 10 MG/ML 4 ML VIAL IV STA (13:31)
--- NOTE | 2020-03-02 13:59 | P.PN ---
Progress Note - Text Progress Note Date: 03/02/20 Patient states her diarrhea is improved. Her stool is more formed. On exam vital signs are stable. Abdomen soft. Resolving diarrhea. Patiently discharged home per medicine.
--- NOTE | 2020-03-02 13:59 | XR ---
EXAMINATION TYPE: XR chest 1V portable DATE OF EXAM: 03/02/2020 CLINICAL HISTORY: Difficulty breathing an CHF progress study. TECHNIQUE: Single AP portable upright view of the chest is obtained. COMPARISON: Chest x-ray from 3 days earlier and older studies FINDINGS: Elevated and eventrated right hemidiaphragm redemonstrated. Chronic parenchymal changes bi laterally without suspicious new focal airspace opacity, pleural effusion, or pneumothorax seen bilat erally. Mild cardiomegaly with dual-lead pacemaker and atherosclerotic aorta is redemonstrated. Ximena cystectomy clips. Degenerative change bilateral shoulders. Osseous structures are demineralized. IMPRESSION: Chronic parenchymal changes and mild cardiomegaly without acute pulmonary process. No sig nificant change from most recent prior chest x-ray.
[2020-03-02 16:34] LABS: Glucose,Whole Blood 107 mg/dL (75-99)
[2020-03-02] MEDS: ATORVASTATIN 20 MG TAB PO SCH (17:25)
--- NOTE | 2020-03-02 17:50 | PN ---
PROGRESS NOTE DATE OF SERVICE: 03/02/2020 INTERVAL HISTORY: This 84-year-old woman who was admitted with acute COVID-19 pneumonia also had significant dehydration also. The patient also has some diarrhea. The patient also had acute renal failure. Patient also had epistaxis, which is improving at this time on Coumadin. The patient also had Coumadin coagulopathy. Vitamin K has been given yesterday and today the INR is 2.45 at this time. Accu-Cheks elevated. Past medical history reviewed. REVIEW OF SYSTEMS: ENT as mentioned. Cardiovascular as mentioned. RESPIRATORY as mentioned earlier. GI: As mentioned earlier. Nervous system: Very diffusely significant weakness. CURRENT MEDICATIONS: [place] 5 mg. Zyloprim, Xanax. Lipitor. Os-[place] with vitamin D, Colace, Cymbalta, Flovent, NovoLog, p.r.n. medications. Doses are reviewed. PHYSICAL EXAMINATION: Alert and oriented times three. Pulse 61, blood pressure 176/86, respirations 16, temperature 97.9, pulse ox 98% on room air. HEENT: Conjunctivae normal. NECK: No JVD. CARDIOVASCULAR: S1, S2 muffled. RESPIRATORY: Breath sounds diminished in the bases. A few scattered rhonchi and crackles. ABDOMEN: Soft, nontender. LEGS are no edema. No swelling. NERVOUS SYSTEM: Diffusely weak. LABS: INR 2.4, hemoglobin 10.8. Accu-Cheks noted. ASSESSMENT: 1. Acute COVID-19 infection with significant diarrhea, weakness, severe dehydration with possible gastrointestinal involvement. 2. Acute renal failure possibly secondary to prerenal acute tubular necrosis. 3. Acute epistaxis, controlled. 4. Coumadin coagulopathy, improved. 5. Hypomagnesemia. 6. History of recent diverticulitis. 7. History of asthma/chronic obstructive pulmonary disease. 8. History of deep vein thrombosis. 9. Hypertension. 10.Hyperlipidemia. 11.Gait dysfunction. 12.History of degenerative joint disease. 13.History of gout. 14.History of dermatitis. 15.History of bilateral glaucoma. 16.History of bradycardia/pacemaker implantation. 17.History of cholecystectomy. 18.Remote history of nicotine dependence. 19.Obesity with body mass index of 33.9. 20.FULL CODE. RECOMMENDATIONS AND DISCUSSION: In this 84-year-old woman who presented with multiple medical issues, at this time I recommend to continue current medications, symptomatic treatment. Otherwise at this time, PT/OT evaluation, possible ECF rehab. Monitor labs closely. We will repeat PT/INR and hold off antiplatelet agents. Otherwise guarded prognosis because of multiple complex medical issues. Further recommendations to follow. We will closely follow with multiple consultants. JHOANA / NOEMÍ: [id number] /
[2020-03-02 20:09] LABS: Glucose,Whole Blood 119 mg/dL (75-99)
[2020-03-02] MEDS: PANTOPRAZOLE 40 MG TABLET PO SCH (20:43)
[2020-03-02] MEDS: DULoxetine HCL 60 MG CAPSULE.DR PO SCH (20:43)
[2020-03-02] MEDS: MONTELUKAST 10 MG TAB PO SCH (20:43)
[2020-03-02] MEDS: LATANOPROST 0.005% OPHTH DROPS 2.5 ML BTL BOTH EYES SCH (20:44)
--- NOTE | 2020-03-03 04:28 | PN ---
PROGRESS NOTE DATE OF SERVICE: 03/02/2020 REASON FOR FOLLOW UP: 1. Positive COVID test. 2. Diarrhea. INTERVAL HISTORY: The patient is currently afebrile. The patient is breathing comfortably. Denies having any chest pain. Minimal cough. No nausea, no vomiting, no abdominal pain. Diarrhea has improved. PHYSICAL EXAMINATION: Blood pressure 155/87, pulse of 60, temperature 97.8. She is 95% on room air. General description is an elderly female lying in bed in no distress. Respiratory system: Unlabored breathing, decreased breath sounds in the base, no wheeze. Heart S1, S2. Regular rate and rhythm. Abdomen soft, no tenderness. LABS: Hemoglobin is 10.1, white count of 8.1. BUN of 28, creatinine 0.8. DIAGNOSTIC IMPRESSION AND PLAN: 1. Patient with a positive COVID test and this patient currently did not have significant respiratory symptoms. Chest x-ray negative for any acute findings. The patient is on room air. She is already on Coumadin and is covered with dexamethasone, to continue. 2. Diarrhea. Continue with symptomatic treatment with Lactinex and Questran as the patient seemed to have shown overall clinical improvement. MMODL / IJN: [id number] /
[2020-03-03 06:53] LABS: Basophils % (A) 0 %; Eosinophils % (A) 0 %; HGB 10.9 gm/dL (11.4-16.0); Lymphocytes # (A) 0.8 k/uL (1.0-4.8); Lymphocytes % (A) 11 %; MCHC 32.1 g/dL (31.0-37.0); MCV 96.6 fL (80.0-100.0); Mean Platelet Volume 7.4; Monocytes # (A) 0.6 k/uL (0-1.0); Monocytes % (A) 9 %; Neutrophils # (A) 5.7 k/uL (1.3-7.7); Neutrophils % (A) 79 %; Platelet Count 355 k/uL (150-450); RBC 3.53 m/uL (3.80-5.40); RDW 15.2 % (11.5-15.5); WBC 7.3 k/uL (3.8-10.6)
[2020-03-03 07:01] LABS: Glucose,Whole Blood 130 mg/dL (75-99)
[2020-03-03] MEDS: INSULIN ASPART (NovoLOG) 100 UNIT/ML VIAL SQ SCH ×4 (07:09→21:04)
[2020-03-03] MEDS: MULTIVITAMINS, THERA 1 EACH TAB PO SCH (08:46)
[2020-03-03] MEDS: ISOSORBIDE MONONITRATE ER 60 MG TAB.ER.24H PO SCH (08:46)
[2020-03-03] MEDS: LACTOBACILLUS ACIDOPH & BULGAR 1 EACH PACKET PO SCH (08:46)
[2020-03-03] MEDS: GABAPENTIN 300 MG CAP PO SCH ×2 (08:46→20:03)
[2020-03-03] MEDS: CHOLECALCIFEROL 1,000 UNIT TAB PO SCH (08:46)
[2020-03-03] MEDS: allopurinoL 100 MG TAB PO SCH ×2 (08:46→20:03)
[2020-03-03] MEDS: CALCIUM CARB-VIT D 500MG-200UN 1 EACH TAB PO SCH (08:46)
[2020-03-03] MEDS: ZINC SULFATE 220 MG CAP PO SCH (08:46)
[2020-03-03] MEDS: PANTOPRAZOLE 40 MG TABLET PO SCH ×2 (08:46→20:04)
[2020-03-03] MEDS: FOLIC ACID 1 MG TAB PO SCH (08:46)
[2020-03-03] MEDS: CHOLESTYRAMINE (WITH SUGAR) 4 GM PACKET PO SCH ×2 (08:46→17:09)
[2020-03-03] MEDS: dexAMETHasone 2 MG TAB PO SCH (08:47)
[2020-03-03] MEDS: METOPROLOL TARTRATE 25 MG TAB PO SCH ×3 (08:47→20:03)
[2020-03-03 09:52] LABS: African American GFR (CKD) 79.6 (60.0-200.0); Anion Gap 8.1 mmol/L (4.00-12.00); BUN/Creat Ratio 37.5 Ratio (12.00-20.00); Calcium 8.8 mg/dL (8.7-10.3); Carbon Dioxide 23.9 mmol/L (21.6-31.8); Non-African American GFR(CKD) 68.7 (60.0-200.0); Potassium 3.6 mmol/L (3.5-5.5)
[2020-03-03] MEDS: FLUTICASONE 110 MCG INHALER INHALATION SCH ×2 (09:57→19:32)
[2020-03-03 10:17] VITALS: RESP 18
[2020-03-03 10:18] LABS: INR 6.2 (0.90-1.11); Prothrombin Time 58.5 sec (9.9-11.9)
[2020-03-03 11:40] LABS: Glucose,Whole Blood 83 mg/dL (75-99)
--- NOTE | 2020-03-03 11:42 | P.PN ---
Subjective Progress Note Date: 03/03/20 Principal diagnosis: Recent diverticulitis Patient hospitalized last week after being seen in the office. Patient was found to be Covid positive. Says her profound fatigue has improved. Denies abdominal pain. Is having some constipation issues. Small bowel movement earlier today. Objective - Vital Signs Vital signs: Vital Signs Temp 98.6 F 03/03/20 10:00 Pulse 65 03/03/20 10:00 Resp 18 03/03/20 10:00 BP 186/100 03/03/20 10:00 Pulse Ox 97 03/03/20 10:00 Intake & Output 03/02/20 03/03/20 03/03/20 18:59 06:59 18:59 Intake Total 1320 400 Output Total 4 300 Balance 1316 400 -300 Intake: Intake, IV Titration 600 Amount Sodium Chloride 0.9% 1, 600 000 ml @ 75 mls/hr IV . [id number] [facility] Rx#:[id number] Oral 720 400 Output: Urine 300 Urine/Stool Mix 4 Other: # Voids 7 1 1 # Bowel Movements 1 - Exam Abdomen: Soft, nontender, nondistended - Labs CBC & Chem 7: 03/03/20 06:03 03/03/20 06:03 Labs: Abnormal Lab Results - Last 24 Hours (Table) 03/01/20 03/02/20 03/02/20 Range/Units 06:25 16:33 20:03 RBC (3.80-5.40) m/uL Hgb (11.4-16.0) gm/dL Lymphocytes # (1.0-4.8) k/uL PT 58.5 H* (9.9-11.9) sec INR 6.20 H* (0.90-1.11) BUN (9.0-27.0) mg/dL BUN/Creatinine Ratio (12.00-20.00) Ratio Glucose (70-110) mg/dL POC Glucose (mg/dL) 107 H 119 H (75-99) mg/dL 03/03/20 03/03/20 03/03/20 Range/Units 06:03 06:03 06:54 RBC 3.53 L (3.80-5.40) m/uL Hgb 10.9 L (11.4-16.0) gm/dL Lymphocytes # 0.8 L (1.0-4.8) k/uL PT (9.9-11.9) sec INR (0.90-1.11) BUN 30.0 H (9.0-27.0) mg/dL BUN/Creatinine Ratio 37.50 H (12.00-20.00) Ratio Glucose 149 H (70-110) mg/dL POC Glucose (mg/dL) 130 H (75-99) mg/dL Microbiology - Last 24 Hours (Table) 02/27/20 15:06 Blood Culture - Preliminary Blood No Growth after 96 hours Assessment and Plan (1) Diverticulitis Narrative/Plan: Continue diet as ordered. Increased stool softeners for now. Continue physical therapy. Current Visit: No Status: Acute Code(s): K57.92 - DVTRCLI OF INTEST, PART UNSP, W/O PERF OR ABSCESS W/O BLEED SNOMED Code(s): 734674727
[2020-03-03 16:25] LABS: Glucose,Whole Blood 96 mg/dL (75-99)
[2020-03-03] MEDS: ATORVASTATIN 20 MG TAB PO SCH (17:09)
[2020-03-03] MEDS: DULoxetine HCL 60 MG CAPSULE.DR PO SCH (20:03)
[2020-03-03] MEDS: LATANOPROST 0.005% OPHTH DROPS 2.5 ML BTL BOTH EYES SCH (20:04)
[2020-03-03] MEDS: MONTELUKAST 10 MG TAB PO SCH (20:04)
[2020-03-03 21:00] LABS: Glucose,Whole Blood 105 mg/dL (75-99)
--- NOTE | 2020-03-03 23:18 | P.PN ---
Progress Note - Text Progress Note Date: 03/03/20 presenting complaint: Tired Interval history: Ms. Hanley is an 84-year-old female with a past medical history of COPD,, DVT, hypertension, hyperlipidemia, osteoarthritis, degenerative joint disease, bradycardia status post pacemaker placement, . Recently discharged from the hospital on February 14 with acute diverticulitis. now presented with weakness tiredness. Some abdominal pain.computed tomography scan of the abdomen showed clearing of diverticulitis.patient also tested for COVID without any pages symptoms. Also some diarrhea that was treated symptomatically. Today-feeling better.slight nausea.oral intake is really improved. Up to the bathroom. No bowel movement today. Review of systems: Was done for constitutional, cardiovascular, GI, pulmonary. relevant finding as above Active Medications Allopurinol (Allopurinol 100 Mg Tab) 100 mg PO BID [facility] Last Admin: 03/03/20 20:03 Dose: 100 mg Documented by: Alprazolam (Alprazolam 0.25 Mg Tab) 0.25 mg PO TID PRN PRN Reason: Anxiety Atorvastatin Calcium (Atorvastatin 20 Mg Tab) 20 mg PO W/SUPPER [facility] Last Admin: 03/03/20 17:09 Dose: 20 mg Documented by: Calcium Carbonate (Calcium Carb-Vit D 500mg-200un 1 Each Tab) 1 each PO DAILY [facility] Last Admin: 03/03/20 08:46 Dose: 1 each Documented by: [place] Syrup ([place] Flavor 60 Ml Bottle) 5 ml PO Q6H PRN PRN Reason: FOR TASTE WITH ORAL VANCO Last Admin: 02/29/20 02:33 Dose: 5 ml Documented by: Cholecalciferol (Cholecalciferol 1,000 Unit Tab) 1,000 unit PO DAILY [facility] Last Admin: 03/03/20 08:46 Dose: 1,000 unit Documented by: Cholestyramine Resin (Cholestyramine (With Sugar) 4 Gm Packet) 4 gm PO BID@1000,1800 [facility] Last Admin: 03/03/20 17:09 Dose: 4 gm Documented by: Dexamethasone (Dexamethasone 2 Mg Tab) 6 mg PO DAILY [facility] Last Admin: 03/03/20 08:47 Dose: 6 mg Documented by: Docusate Sodium (Docusate 100 Mg Cap) 100 mg PO BID PRN PRN Reason: Constipation Duloxetine HCl (Duloxetine Hcl 60 Mg Capsule.Dr) 60 mg PO HS [facility] Last Admin: 03/03/20 20:03 Dose: 60 mg Documented by: Fluticasone Propionate (Fluticasone 110 Mcg Inhaler) 2 puff INHALATION RT-BID [facility] Last Admin: 03/03/20 19:32 Dose: 2 puff Documented by: Folic Acid (Folic Acid 1 Mg Tab) 1 mg PO DAILY [facility] Last Admin: 03/03/20 08:46 Dose: 1 mg Documented by: Gabapentin (Gabapentin 300 Mg Cap) 600 mg PO BID [facility] Last Admin: 03/03/20 20:03 Dose: 600 mg Documented by: Insulin Aspart (Insulin Aspart (Novolog) 100 Unit/Ml Vial) 0 unit SQ ACHS [facility]; Protocol Last Admin: 03/03/20 21:04 Dose: Not Given Documented by: Isosorbide Mononitrate (Isosorbide Mononitrate Er 60 Mg Tab.Er.24h) 60 mg PO DAILY [facility] Last Admin: 03/03/20 08:46 Dose: 60 mg Documented by: Lactobacillus Acidoph/Bulgaricus (Lactobacillus Acidoph & Bulgar 1 Each Packet) 1 each PO DAILY [facility] Last Admin: 03/03/20 08:46 Dose: 1 each Documented by: Latanoprost (Latanoprost 0.005% Ophth Drops 2.5 Ml Btl) 1 drops BOTH EYES [facility] Last Admin: 03/03/20 20:04 Dose: 1 drops Documented by: Metoprolol Tartrate (Metoprolol Tartrate 25 Mg Tab) 25 mg PO TID [facility] Last Admin: 03/03/20 20:03 Dose: 25 mg Documented by: Miscellaneous Information (Magnesium Replacement Protocol 1 Each Misc) 1 each MISCELLANE DAILY PRN; Protocol PRN Reason: Per Protocol Miscellaneous Information (Potassium Replacement Protocol 1 Each Misc) 1 each MISCELLANE DAILY PRN; Protocol PRN Reason: Per Protocol Miscellaneous Information (Magnesium Replacement Protocol 1 Each Misc) 1 each MISCELLANE DAILY PRN; Protocol PRN Reason: Per Protocol Montelukast Sodium (Montelukast 10 Mg Tab) 10 mg PO [facility] Last Admin: 03/03/20 20:04 Dose: 10 mg Documented by: Multivitamins (Multivitamins, Thera 1 Each Tab) 1 each PO DAILY [facility] Last Admin: 03/03/20 08:46 Dose: 1 each Documented by: Naloxone HCl (Naloxone 0.4 Mg/Ml 1 Ml Vial) 0.2 mg IV Q2M PRN PRN Reason: Opioid Reversal Nitroglycerin (Nitroglycerin Sl Tabs 0.4 Mg Tab) 0.4 mg SUBLINGUAL Q5M PRN PRN Reason: Chest Pain Buprenorphine [ Butrans 10 Mcg/Hour] 10 Mcg/Hour Patch. Tdwk) 1 patch TOPICAL TH [facility] Last Admin: 02/28/20 08:52 Dose: Not Given Documented by: Ondansetron HCl (Ondansetron 4 Mg/2 Ml Vial) 4 mg IVP Q8HR PRN PRN Reason: Nausea And Vomiting Pantoprazole Sodium (Pantoprazole 40 Mg Tablet) 40 mg PO BID [facility] Last Admin: 03/03/20 20:04 Dose: 40 mg Documented by: Temazepam (Temazepam 15 Mg Cap) 15 mg PO HS PRN PRN Reason: Insomnia Triamcinolone Acetonide (Triamcinolone 0.1% Cream 80 Gm Tube) 1 applic TOPICAL BID PRN PRN Reason: Rash Zinc Sulfate (Zinc Sulfate 220 Mg Cap) 220 mg PO DAILY [facility] Last Admin: 03/03/20 08:46 Dose: 220 mg Documented by: On examination: VITAL SIGNS: 97.7, 66, 18, 1 53 x 84, 95% room air GENERAL APPEARANCE: Sitting up in a chair, comfortable PSYCHIATRY: Alert and oriented x3. Mood and affect normal. rest of the examper other consultants Investigations: white count 7.3 hemoglobin 10.9 potassium 3.6 creatinine 0.8INR 2.45 Computed tomography scan of the abdomen-no diabetes mellitus Previous testing: INR 5.7 uric acid is 4.7 COVID 19 P/Cr-detected Assessment: -Acute diarrhea likely from COVID 19. Symptomatic management -Sigmoid diverticulosis -COPD in an ex-smoker -Essential hypertension --hyperlipidemia -Primary osteoarthritis -Pacemaker for bradycardia -DJD -Chronic DVT for which patient is on Coumadin -Coumadin toxicity, for which patient received vitamin K Plan: Oral patient doing better. Oral intake is improving. Encouraged to move about. Hopefully can be discharged tomorrow. Follow INR.
--- NOTE | 2020-03-04 00:12 | PN ---
PROGRESS NOTE DATE OF SERVICE: 03/03/2020 REASON FOR FOLLOWUP: COVID-19 vomiting and diarrhea. INTERVAL HISTORY: The patient is currently afebrile. Patient has been breathing comfortably, currently on 96% on room air. The patient denies having any chest pain. Minimal shortness of breath on exertion. No nausea, no vomiting. No abdominal pain and diarrhea has resolved. PHYSICAL EXAMINATION: Blood pressure 160/78 with a pulse of 68, temperature 97.8. She is 96% on room air. General description is an elderly female lying in bed in no distress. RESPIRATORY SYSTEM: Unlabored breathing, decreased intensity of breath sounds. No wheeze. HEART: S1, S2. Regular rate and rhythm. ABDOMEN: Soft, no tenderness. LABS: Hemoglobin is 10.9, white count 7.3, BUN of 30, creatinine 0.8. Blood culture has been negative. DIAGNOSTIC IMPRESSION AND PLAN: 1. Patient with positive COVID test in this patient did not have significant respiratory distress or acute finding on the x-ray, saturating currently 98% on room air. The patient has been treated with dexamethasone, Lovenox and zinc sulfate to continue. 2. Patient with diarrhea resolved currently on Questran to use as needed. MMODL / IJN: [id number] /
[2020-03-04 06:16] LABS: Basophils # (A) 0.2 k/uL (0-0.2); Basophils % (A) 2 %; Eosinophils % (A) 0 %; Lymphocytes # (A) 0.9 k/uL (1.0-4.8); Lymphocytes % (A) 9 %; MCH 31.3 pg (25.0-35.0); MCHC 32.5 g/dL (31.0-37.0); MCV 96.5 fL (80.0-100.0); Mean Platelet Volume 7.3; Monocytes % (A) 10 %; Neutrophils # (A) 7.7 k/uL (1.3-7.7); Neutrophils % (A) 78 %; Platelet Count 364 k/uL (150-450); RBC 3.84 m/uL (3.80-5.40); RDW 15.2 % (11.5-15.5)
[2020-03-04 07:11] LABS: Glucose,Whole Blood 109 mg/dL (75-99)
[2020-03-04] MEDS: INSULIN ASPART (NovoLOG) 100 UNIT/ML VIAL SQ SCH (07:19)
[2020-03-04] MEDS: MULTIVITAMINS, THERA 1 EACH TAB PO SCH (08:35)
[2020-03-04] MEDS: ISOSORBIDE MONONITRATE ER 60 MG TAB.ER.24H PO SCH (08:35)
[2020-03-04] MEDS: PANTOPRAZOLE 40 MG TABLET PO SCH (08:35)
[2020-03-04] MEDS: dexAMETHasone 2 MG TAB PO SCH (08:35)
[2020-03-04] MEDS: GABAPENTIN 300 MG CAP PO SCH (08:35)
[2020-03-04] MEDS: ZINC SULFATE 220 MG CAP PO SCH (08:35)
[2020-03-04] MEDS: METOPROLOL TARTRATE 25 MG TAB PO SCH (08:36)
[2020-03-04] MEDS: LACTOBACILLUS ACIDOPH & BULGAR 1 EACH PACKET PO SCH (08:36)
[2020-03-04] MEDS: CALCIUM CARB-VIT D 500MG-200UN 1 EACH TAB PO SCH (08:36)
[2020-03-04] MEDS: CHOLESTYRAMINE (WITH SUGAR) 4 GM PACKET PO SCH (08:36)
[2020-03-04] MEDS: allopurinoL 100 MG TAB PO SCH (08:36)
[2020-03-04] MEDS: FOLIC ACID 1 MG TAB PO SCH (08:36)
[2020-03-04] MEDS: CHOLECALCIFEROL 1,000 UNIT TAB PO SCH (08:36)
[2020-03-04] MEDS: FLUTICASONE 110 MCG INHALER INHALATION SCH (08:45)
[2020-03-04 10:14] LABS: African American GFR (CKD) 79.6 (60.0-200.0); Anion Gap 7.3 mmol/L (4.00-12.00); BUN/Creat Ratio 36.25 Ratio (12.00-20.00); Carbon Dioxide 25.7 mmol/L (21.6-31.8); Non-African American GFR(CKD) 68.7 (60.0-200.0)
[2020-03-04 11:03] LABS: INR 1.32 (0.90-1.11)
[2020-03-04 11:04] VITALS: BP 152/91; PULSE 67; TEMP 97.8
[2020-03-04] MEDS ORDERED: CHLORTHALIDONE 25 MG TAB PO SCH (11:15)
[2020-03-04] MEDS ORDERED: LOSARTAN 50 MG TAB PO SCH (11:15)
[2020-03-04 11:47] LABS: Glucose,Whole Blood 88 mg/dL (75-99)
--- NOTE | 2020-03-04 20:58 | P.DS ---
Providers Date of admission: 02/27/20 17:33 Expected date of discharge: 03/04/20 Attending physician: Ozzy Kitchen Consults: 02/27/20 17:57 Consult Physician Stat Consulting Provider: Edgardo Mancuso Consult Reason/Comments: Abd pain; diarrhea Do you want consulting provider notified?: Yes 02/28/20 15:09 Consult Physician Routine Consulting Provider: Flower Salas Consult Reason/Comments: Covid Do you want consulting provider notified?: Yes Primary care physician: Chalo [facility] Course: presenting complaint: Tired Interval history: Ms. Hanley is an 84-year-old female with a past medical history of COPD,, DVT, hypertension, hyperlipidemia, osteoarthritis, degenerative joint disease, bradycardia status post pacemaker placement, . Recently discharged from the hospital on February 14 with acute diverticulitis. now presented with weakness tiredness. Some abdominal pain.computed tomography scan of the abdomen showed clearing of diverticulitis.patient also tested for COVID without any respiratory symptoms. Also some diarrhea that was treated symptomatically. Blood cultures negative Today-sitting up in a chair. Much improved. Oral intake is good. Care was discussed with the patient. Patient told to hold off on methotrexate to follow- up with PCP-until infection is cleared. Consultation: Dr. Salas from ID Dr. Mata from general surgery On examination: VITAL SIGNS: 97.8, 67, 18, 152/91, 98% room air GENERAL APPEARANCE: Sitting up in a chair, feeling much improved PSYCHIATRY: Alert and oriented x3. Mood and affect normal. rest of the exam per other consultants Investigations: White count and hemoglobin 12 potassium 4 creatinine 0.8 INR 1.3 to white count 7.3 hemoglobin 10.9 potassium 3.6 creatinine 0.8INR 2.45 Computed tomography scan of the abdomen-no diabetes mellitus Previous testing: INR 5.7 uric acid is 4.7 Coronavirus PCR-detected Blood culture-negative Assessment: -Acute diarrhea likely from COVID 19. Symptomatic management -Sigmoid diverticulosis -COPD in an ex-smoker -Essential hypertension --hyperlipidemia -Primary osteoarthritis -Pacemaker for bradycardia -DJD -Chronic DVT for which patient is on Coumadin -Coumadin toxicity, for which patient received vitamin K Disposition: Home Labs: CBC, BMP, INR-in 5 days Patient Condition at Discharge: Stable Plan - Discharge Summary New Discharge Prescriptions: New Melatonin 3 mg PO HS #30 tablet Zinc Sulfate [Orazinc] 220 mg PO DAILY #30 cap Cholecalciferol [Vitamin D3 (25 Mcg = 1000 Iu)] 1,000 unit PO DAILY #30 tab Diclofenac Sodium Gel [Voltaren Gel] 4 gm TOPICAL QID #1 tub Chlorthalidone 25 mg PO DAILY #30 tab Continue Gabapentin [Neurontin] 600 mg PO BID Isosorbide Mononitrate [Imdur] 60 mg PO DAILY Bimatoprost [[place] .01% Ophth Soln] 1 drop BOTH EYES HS Montelukast [Singulair] 10 mg PO HS allopurinoL [Zyloprim] 100 mg PO BID Omeprazole 20 mg PO BID Budesonide [Pulmicort] 0.5 mg INHALATION RT-BID Metoprolol Tartrate [Lopressor] 25 mg PO TID #0 DULoxetine HCL [Cymbalta] 60 mg PO HS Losartan [Cozaar] 50 mg PO DAILY Simvastatin [Zocor] 40 mg PO W/SUPPER Buprenorphine [Butrans 10 MCG/HOUR] 1 patch TRANSDERM TH Nitroglycerin Sl Tabs [Nitrostat] 0.4 mg SUBLINGUAL Q5M PRN PRN Reason: Chest Pain Multivitamins, Thera [Multivitamin (formulary)] 1 tab PO DAILY L.acidoph,Paracasei, B.lactis [Probiotic] 1 cap PO DAILY Folic Acid 1 mg PO DAILY Calcium Carbonate/Vitamin D3 [Calcium 600-D3 20Mcg(800 Unit)] 1 tab PO DAILY Triamcinolone 0.1% Cream [Kenalog 0.1% Cream] 1 applicatio TOPICAL BID PRN PRN Reason: Rash Ondansetron Odt [Zofran ODT] 4 mg PO Q4H PRN PRN Reason: Nausea Changed Warfarin [Coumadin] 2.5 mg PO DAILY #0 Discontinued Warfarin [Coumadin] 5 mg PO SUMOTUWETHSA@1700 hydroCHLOROthiazide [Hydrodiuril] 12.5 mg PO BID No Action metHOTREXate sodium [Methotrexate] 25 mg PO FR Denosumab [Prolia] 60 mg SQ Q180D Discharge Medication List Bimatoprost [[place] .01% Ophth Soln] 1 drop BOTH EYES HS 11/07/13 [History] Gabapentin [Neurontin] 600 mg PO BID 11/07/13 [History] Isosorbide Mononitrate [Imdur] 60 mg PO DAILY 11/07/13 [History] Montelukast [Singulair] 10 mg PO HS 11/07/13 [History] allopurinoL [Zyloprim] 100 mg PO BID 07/09/14 [History] Budesonide [Pulmicort] 0.5 mg INHALATION RT-BID 03/29/16 [History] Omeprazole 20 mg PO BID 03/29/16 [History] Metoprolol Tartrate [Lopressor] 25 mg PO TID #0 04/13/16 [Rx] metHOTREXate sodium [Methotrexate] 25 mg PO FR 07/17/18 [History] DULoxetine HCL [Cymbalta] 60 mg PO HS 11/22/18 [History] Losartan [Cozaar] 50 mg PO DAILY 11/22/18 [History] Simvastatin [Zocor] 40 mg PO W/SUPPER 01/27/20 [History] Buprenorphine [Butrans 10 MCG/HOUR] 1 patch TRANSDERM TH 02/10/20 [History] Calcium Carbonate/Vitamin D3 [Calcium 600-D3 20Mcg(800 Unit)] 1 tab PO DAILY 02/10/20 [History] Denosumab [Prolia] 60 mg SQ Q180D 02/10/20 [History] Folic Acid 1 mg PO DAILY 02/10/20 [History] L.acidoph,Paracasei, B.lactis [Probiotic] 1 cap PO DAILY 02/10/20 [History] Multivitamins, Thera [Multivitamin (formulary)] 1 tab PO DAILY 02/10/20 [History] Nitroglycerin Sl Tabs [Nitrostat] 0.4 mg SUBLINGUAL Q5M PRN 02/10/20 [History] Ondansetron Odt [Zofran ODT] 4 mg PO Q4H PRN 02/27/20 [History] Triamcinolone 0.1% Cream [Kenalog 0.1% Cream] 1 applicatio TOPICAL BID PRN 02/27/20 [History] Chlorthalidone 25 mg PO DAILY #30 tab 03/04/20 [Rx] Cholecalciferol [Vitamin D3 (25 Mcg = 1000 Iu)] 1,000 unit PO DAILY #30 tab 03/04/20 [Rx] Diclofenac Sodium Gel [Voltaren Gel] 4 gm TOPICAL QID #1 tub 03/04/20 [Rx] Melatonin 3 mg PO HS #30 tablet 03/04/20 [Rx] Warfarin [Coumadin] 2.5 mg PO DAILY #0 03/04/20 [Rx] Zinc Sulfate [Orazinc] 220 mg PO DAILY #30 cap 03/04/20 [Rx] Follow up Appointment(s)/Referral(s): Chalo Cm DO [Primary Care Provider] - 03/05/20 1:45 pm (The office pipe call tomorrow at given time for telehealth) Accredited [facility], [REFERRING] - Patient Instructions/Handouts: Viral Pneumonia (DC) Activity/Diet/Wound Care/Special Instructions: cbc/bmp/inr - 5 days hold methotrexate till cleared by pcp edgardo instructiuomelvi Discharge Disposition: HOME SELF-CARE
--- NOTE | 2020-03-05 07:43 | P.PN ---
Subjective Progress Note Date: 03/04/20 HISTORY OF PRESENT ILLNESS This is an 84-year-old female admitted to hospital for COVID- 19 vomi ting and diarrhea. Patient has not developed any respiratory symptoms no respiratory distress. Diarrhea has completely resolved. No abdominal pain. She states she has occasional cough, no chest pain, no shortness of breath. Lungs are clear to auscultation. Patient has been afebrile, heart rate 67, blood pressure 152/91, pulse ox 98% on room air. PHYSICAL EXAMINATION Gen: This is an 84-year-old female. She is resting in bed appears to be comfortable and in no acute distress. HEENT: Head is atraumatic, normocephalic. Pupils equal, round. Sclerae is anicteric. NECK: Supple. No JVD. No lymphadenopathy. No thyromegaly. LUNGS: Clear to auscultation. No wheezes or rhonchi. No intercostal retractions. HEART: Regular rate and rhythm. No murmur. ABDOMEN: Soft. Bowel sounds are present. No masses. No tenderness. EXTREMITIES: No pedal edema. No calf tenderness. NEUROLOGICAL: Patient is awake, alert and oriented x3. Cranial nerves 2 through 12 are grossly intact. ASSESSMENT Covid 19 infection with GI symptoms Diarrhea resolved PLAN Questran can be discontinued Patient may be continued on zinc, vitamin D after discharge Patient is cleared for discharge from infectious disease The above dictated assessment and findings were discussed with Dr. Salas. The impression and plan of care have been directed as dictated. Alta Elder nurse practitioner acting as scribe for Dr. Salas. Objective - Vital Signs Vital signs: Vital Signs Temp 97.8 F 03/04/20 10:00 Pulse 67 03/04/20 10:00 Resp 18 03/04/20 10:00 BP 152/91 03/04/20 10:00 Pulse Ox 98 03/04/20 10:00 Intake & Output 03/03/20 03/04/20 03/04/20 18:59 06:59 18:59 Intake Total 1200 900 Output Total 300 Balance 900 900 Intake: Oral 1200 900 Output: Urine 300 Other: # Voids 1 1 - Labs CBC & Chem 7: 03/04/20 05:59 03/04/20 05:59 Labs: Abnormal Lab Results - Last 24 Hours (Table) 1103/04/20 03/04/20 Range/Units 20:59 05:59 05:59 Lymphocytes # 0.9 L (1.0-4.8) k/uL PT (9.9-11.9) sec INR (0.90-1.11) BUN 29.0 H (9.0-27.0) mg/dL BUN/Creatinine Ratio 36.25 H (12.00-20.00) Ratio Glucose 111 H (70-110) mg/dL POC Glucose (mg/dL) 105 H (75-99) mg/dL 03/04/20 03/04/20 Range/Units 05:59 07:10 Lymphocytes # (1.0-4.8) k/uL PT 14.0 H (9.9-11.9) sec INR 1.32 H (0.90-1.11) BUN (9.0-27.0) mg/dL BUN/Creatinine Ratio (12.00-20.00) Ratio Glucose (70-110) mg/dL POC Glucose (mg/dL) 109 H (75-99) mg/dL Microbiology - Last 24 Hours (Table) 02/27/20 15:06 Blood Culture - Preliminary Blood No Growth after 120 hours
== END 2020-03-04 14:14 | disposition home or self-care (01) | DRG 177 ==
LOC: EC 13:42 → 5NMEDONC 17:33 → 4SSUR 02-28 03:06
PROVIDERS: ADMIT Hospitalist; ATTEND Hospitalist
DX: U07.1 COVID-19 (principal); N17.0 Acute kidney failure with tubular necrosis; I82.509 Chronic embolism and thrombosis of unspecified deep veins of unspecified lower extremity; M19.91 Primary osteoarthritis, unspecified site; K57.30 Diverticulosis of large intestine without perforation or abscess without bleeding; E78.5 Hyperlipidemia, unspecified; E66.9 Obesity, unspecified; E83.42 Hypomagnesemia; E86.0 Dehydration; I10 Essential (primary) hypertension; K59.00 Constipation, unspecified; R04.0 Epistaxis; R79.1 Abnormal coagulation profile; T45.515A Adverse effect of anticoagulants, initial encounter; M10.9 Gout, unspecified; J44.9 Chronic obstructive pulmonary disease, unspecified; M81.0 Age-related osteoporosis without current pathological fracture; Z96.651 Presence of right artificial knee joint; Z79.01 Long term (current) use of anticoagulants; Z79.899 Other long term (current) drug therapy; Z88.5 Allergy status to narcotic agent; Z88.8 Allergy status to other drugs, medicaments and biological substances; Z91.09 Other allergy status, other than to drugs and biological substances; Z80.8 Family history of malignant neoplasm of other organs or systems; Z87.891 Personal history of nicotine dependence; Z90.49 Acquired absence of other specified parts of digestive tract; Z95.0 Presence of cardiac pacemaker; Z68.33 Body mass index [BMI] 33.0-33.9, adult; Z90.89 Acquired absence of other organs; Z98.51 Tubal ligation status; Z98.42 Cataract extraction status, left eye; Z98.41 Cataract extraction status, right eye; Z98.890 Other specified postprocedural states; Z83.6 Family history of other diseases of the respiratory system
CPT/HCPCS: 36415; 71045; 74176; 80048; 80053; 81003; 82728; 83605; 83615; 83735; 84484; 84550; 85025; 85379; 85610; 85730; 86140; 87040; 87635; 93005; 94640; 96365; 96366; 96375; 99285

== ENCOUNTER 2020-03-07 11:34 | Inpatient (IN) | payer MEDICARE ==
[2020-03-07] MEDS ORDERED: SODIUM CHLORIDE 0.9% 1,000 ML IV STA (13:02)
--- NOTE | 2020-03-07 13:10 | XR ---
EXAMINATION TYPE: XR chest 1V portable DATE OF EXAM: 03/07/2020 COMPARISON: Chest x-ray March 02, 2020 and older studies. HISTORY: Weakness and shortness of breath. TECHNIQUE: Single frontal view of the chest is obtained. FINDINGS: There is chronic parenchymal changes bilaterally with increased opacities in the periphery of the lower lungs left greater than right redemonstrated. The cardiac silhouette size remains mild ly enlarged with dual lead pacemaker. Cholecystectomy clips are redemonstrated. The osseous structur es remain demineralized. IMPRESSION: Chronic parenchymal changes and mild cardiomegaly with suggestion of developing peripher al acute infiltrates in the mid to lower lungs left greater than right suspicious for covid 19 infect ion.
[2020-03-07 13:14] LABS: INR 1.5 (<1.2); Partial Thromboplastin Time 26.6 sec (22.0-30.0); Prothrombin Time 14.6 sec (9.0-12.0)
--- NOTE | 2020-03-07 13:18 | ED ---
General Adult HPI - General Chief complaint: Weakness Stated complaint: fall/weakness-revisit COVID+ Time Seen by Provider: 03/07/20 11:56 Source: patient Mode of arrival: wheelchair Limitations: no limitations - History of Present Illness Initial comments: 84-year-old female with history of A. fib and currently on Coumadin presenting to the emergency department with chief complaint of weakness and shortness of breath. Patient states she was discharged 3 days ago from the hospital after being admitted for covid-19d pneumonia. Patient states she continues to feel weak. States she currently lives alone in an apartment and has no help. States that she can't stand long enough to make food for herself. Patient states that she continues to feel short of breath and that has actually increased in severity over since she was discharged. She does report having chills but denies any fevers at home. States that she doesn't have anybody to help her. States he had a home health nurse come to see her today and she fell on the way down as she walked to the door. Patient states that her "knees crumbled" because she so weak. She denies any nausea vomiting diarrhea. She states that the nurse call the primary care physician who advised them to come to the emergency department for admission. - Related Data Home Medications Medication Instructions Recorded Confirmed Bimatoprost [Lumigan .01% Ophth 1 drop BOTH EYES HS 11/07/13 03/07/20 Soln] Gabapentin [Neurontin] 600 mg PO BID 11/07/13 03/07/20 Isosorbide Mononitrate [Imdur] 60 mg PO DAILY 11/07/13 03/07/20 Montelukast [Singulair] 10 mg PO HS 11/07/13 03/07/20 allopurinoL [Zyloprim] 100 mg PO BID 07/09/14 03/07/20 Budesonide [Pulmicort] 0.5 mg INHALATION RT-BID 03/29/16 03/07/20 Omeprazole 20 mg PO BID 03/29/16 03/07/20 metHOTREXate sodium [Methotrexate] 25 mg PO FR 07/17/18 03/07/20 DULoxetine HCL [Cymbalta] 60 mg PO HS 11/22/18 03/07/20 Losartan [Cozaar] 50 mg PO DAILY 11/22/18 03/07/20 Simvastatin [Zocor] 40 mg PO W/SUPPER 01/27/20 03/07/20 Buprenorphine [Butrans 10 MCG/HOUR] 1 patch TRANSDERM TH 02/10/20 03/07/20 Calcium Carbonate/Vitamin D3 1 tab PO DAILY 02/10/20 03/07/20 [Calcium 600-D3 20Mcg(800 Unit)] Denosumab [Prolia] 60 mg SQ Q180D 02/10/20 03/07/20 Folic Acid 1 mg PO DAILY 02/10/20 03/07/20 L.acidoph,Paracasei, B.lactis 1 cap PO DAILY 02/10/20 03/07/20 [Probiotic] Multivitamins, Thera [Multivitamin 1 tab PO DAILY 02/10/20 03/07/20 (formulary)] Nitroglycerin Sl Tabs [Nitrostat] 0.4 mg SUBLINGUAL Q5M PRN 02/10/20 03/07/20 Ondansetron Odt [Zofran ODT] 4 mg PO Q4H PRN 02/27/20 03/07/20 Triamcinolone 0.1% Cream [Kenalog 1 applicatio TOPICAL BID PRN 02/27/20 03/07/20 0.1% Cream] ALPRAZolam [Xanax] 0.25 mg PO DAILY PRN 03/07/20 03/07/20 Warfarin [Coumadin] 2.5 mg PO HS 03/07/20 03/07/20 Previous Rx's Medication Instructions Recorded Metoprolol Tartrate [Lopressor] 25 mg PO TID #0 04/13/16 Chlorthalidone 25 mg PO DAILY #30 tab 03/04/20 Cholecalciferol [Vitamin D3 (25 1,000 unit PO DAILY #30 tab 03/04/20 Mcg = 1000 Iu)] Diclofenac Sodium Gel [Voltaren 4 gm TOPICAL QID #1 tub 03/04/20 Gel] Melatonin 3 mg PO HS #30 tablet 03/04/20 Zinc Sulfate [Orazinc] 220 mg PO DAILY #30 cap 03/04/20 Allergies Allergy/AdvReac Type Severity Reaction Status Date / Time LUNA Inhibitors AdvReac Cough Verified 03/07/20 13:46 codeine AdvReac Nausea Verified 03/07/20 13:46 tape Allergy Unknown Uncoded 02/27/20 13:54 Review of Systems ROS Statement: Those systems with pertinent positive or pertinent negative responses have been documented in the HPI. ROS Other: All systems not noted in ROS Statement are negative. Past Medical History Past Medical History: Asthma, COPD, Deep Vein Thrombosis (DVT), Hyperlipidemia, Hypertension, Osteoarthritis (OA), Skin Disorder Additional Past Medical History / Comment(s): Hx. gout, osteoporosis, RA, DVT L upper arm, dermatitis, bilateral glaucoma, bradycardia- pacemaker, degenerative disc disease, cervical and back pain History of Any Multi-Drug Resistant Organisms: None Reported Past Surgical History: Adenoidectomy, Appendectomy, Cholecystectomy, Hernia Repair, Orthopedic Surgery, Pacemaker, Tonsillectomy, Tubal Ligation Additional Past Surgical History / Comment(s): Hx throat nodule removed, mole left eyelid, D&C, bilat cataracts removed . RIGHT KNEE REPLACEMENT X 2., shoulder surgeries , hiatal hernia repair, I&D L inguinal abscess. Past Anesthesia/Blood Transfusion Reactions: No Reported Reaction Type of Cardiac Device: Permanent Pacemaker Device Placement Date:: October 2012 Past Psychological History: No Psychological Hx Reported Smoking Status: Former smoker Past Alcohol Use History: None Reported Past Drug Use History: None Reported - Past Family History Father Additional Family Medical History / Comment(s): Father pulmonary fibrosis Mother Family Medical History: Cancer Sister(s) Additional Family Medical History / Comment(s): melanoma General Exam Limitations: no limitations General appearance: alert, in no apparent distress Head exam: Present: atraumatic, normocephalic, normal inspection Eye exam: Present: normal appearance, PERRL, EOMI Pupils: Present: normal accommodation ENT exam: Present: normal exam, normal oropharynx, mucous membranes moist, TM's normal bilaterally, normal external ear exam Neck exam: Present: normal inspection, full ROM. Absent: tenderness Respiratory exam: Present: normal lung sounds bilaterally. Absent: respiratory distress, wheezes, rales, rhonchi, stridor Cardiovascular Exam: Present: regular rate, normal rhythm, normal heart sounds. Absent: systolic murmur, diastolic murmur GI/Abdominal exam: Present: soft. Absent: distended, tenderness, guarding, rebound Extremities exam: Present: normal inspection, full ROM, normal capillary refill. Absent: tenderness, pedal edema, joint swelling, calf tenderness Back exam: Present: normal inspection, full ROM. Absent: tenderness, CVA tenderness (R), CVA tenderness (L) Neurological exam: Present: alert, oriented X3, normal gait Psychiatric exam: Present: normal affect, normal mood Skin exam: Present: warm, dry, intact, normal color Course Vital Signs 03/07/20 03/07/20 03/07/20 11:41 13:03 13:15 Temperature 98.9 F Pulse Rate 76 78 Respiratory 18 20 Rate Blood Pressure 103/45 86/43 O2 Sat by Pulse 95 Oximetry 03/07/20 03/07/20 13:52 15:14 Temperature 98.1 F Pulse Rate 69 72 Respiratory 18 20 Rate Blood Pressure 105/57 118/89 O2 Sat by Pulse 98 98 Oximetry Medical Decision Making - Medical Decision Making 84-year-old female presenting to emergency Department with a chief complaint of shortness of breath and weakness. On physical examination, patient is visibly short of breath. She cannot finish a full sentence. Although, she has oxygen saturation of 98 percent on room air. CBC reveals leukocytosis 16.5 which was not present 3 days ago when she was discharged. Patient also had a positive dimer which was not elevated during her inpatient admission. CT reveals nonspecific diffuse infiltrates. Patient has stable vitals. Patient is not safe to go home due to weakness and no one being able to help her. Patient will be admitted for further medical management. Initial troponin is negative. Elevated INR due to Coumadin. Case discussed with Admitting is Dr Kitchen Social work on consult - Lab Data Result diagrams: 03/07/20 12:27 03/07/20 13:10 Lab Results 03/07/20 03/07/20 03/07/20 Range/Units 12:27 12: 12: WBC 16.1 H (3.8-10.6) k/uL RBC 4.28 (3.80-5.40) m/uL Hgb 13.3 (11.4-16.0) gm/dL Hct 41.5 (34.0-46.0) % MCV 96.9 (80.0-100.0) fL MCH 31.0 (25.0-35.0) pg MCHC 32.0 (31.0-37.0) g/dL RDW 15.9 H (11.5-15.5) % Plt Count 406 (150-450) k/uL MPV 8.0 Neutrophils % 80 % Lymphocytes % 8 % Monocytes % 10 % Eosinophils % 1 % Basophils % 0 % Neutrophils # 12.9 H (1.3-7.7) k/uL Lymphocytes # 1.3 (1.0-4.8) k/uL Monocytes # 1.5 H (0-1.0) k/uL Eosinophils # 0.2 (0-0.7) k/uL Basophils # 0.1 (0-0.2) k/uL PT 14.6 H (9.0-12.0) sec INR 1.5 H (<1.2) APTT 26.6 (22.0-30.0) sec D-Dimer 1.01 H (<0.60) mg/L FEU Sodium (137-145) mmol/L Potassium (3.5-5.1) mmol/L Chloride (98-107) mmol/L Carbon Dioxide (22-30) mmol/L Anion Gap mmol/L BUN (7-17) mg/dL Creatinine (0.52-1.04) mg/dL Est GFR (CKD-EPI)AfAm (>60 ml/min/1.73 sqM) Est GFR (CKD-EPI)NonAf (>60 ml/min/1.73 sqM) Glucose (74-99) mg/dL Lactic Ac Sepsis Rflx Plasma Lactic Acid Lalit 2.4 H* (0.7-2.0) mmol/L Calcium (8.4-10.2) mg/dL Magnesium (1.6-2.3) mg/dL Total Bilirubin (0.2-1.3) mg/dL AST (14-36) U/L ALT (4-34) U/L Alkaline Phosphatase (38-126) U/L Lactate Dehydrogenase (313-618) U/L Troponin I (0.000-0.034) ng/mL C-Reactive Protein (<10.0) mg/L Total Protein (6.3-8.2) g/dL Albumin (3.5-5.0) g/dL 03/07/20 03/07/20 03/07/20 Range/Units 13:10 13:10 13:14 WBC (3.8-10.6) k/uL RBC (3.80-5.40) m/uL Hgb (11.4-16.0) gm/dL Hct (34.0-46.0) % MCV (80.0-100.0) fL MCH (25.0-35.0) pg MCHC (31.0-37.0) g/dL RDW (11.5-15.5) % Plt Count (150-450) k/uL MPV Neutrophils % % Lymphocytes % % Monocytes % % Eosinophils % % Basophils % % Neutrophils # (1.3-7.7) k/uL Lymphocytes # (1.0-4.8) k/uL Monocytes # (0-1.0) k/uL Eosinophils # (0-0.7) k/uL Basophils # (0-0.2) k/uL PT (9.0-12.0) sec INR (<1.2) APTT (22.0-30.0) sec D-Dimer (<0.60) mg/L FEU Sodium 135 L (137-145) mmol/L Potassium 4.1 (3.5-5.1) mmol/L Chloride 104 (98-107) mmol/L Carbon Dioxide 26 (22-30) mmol/L Anion Gap 5 mmol/L BUN 28 H (7-17) mg/dL Creatinine 1.00 (0.52-1.04) mg/dL Est GFR (CKD-EPI)AfAm 61 (>60 ml/min/1.73 sqM) Est GFR (CKD-EPI)NonAf 53 (>60 ml/min/1.73 sqM) Glucose 102 H (74-99) mg/dL Lactic Ac Sepsis Rflx Y Plasma Lactic Acid Lalit (0.7-2.0) mmol/L Calcium 9.5 (8.4-10.2) mg/dL Magnesium 1.4 L (1.6-2.3) mg/dL Total Bilirubin 0.7 (0.2-1.3) mg/dL AST 27 (14-36) U/L ALT 37 H (4-34) U/L Alkaline Phosphatase 100 (38-126) U/L Lactate Dehydrogenase 557 (313-618) U/L Troponin I <0.012 (0.000-0.034) ng/mL C-Reactive Protein 16.0 H (<10.0) mg/L Total Protein 5.7 L (6.3-8.2) g/dL Albumin 3.0 L (3.5-5.0) g/dL Disposition Clinical Impression: Weakness, Hypomagnesemia, Shortness of breath Disposition: ADMITTED IP TO THIS [facility] Condition: Fair Is patient prescribed a controlled substance at d/c from ED?: No Referrals: Chalo Cm DO [Primary Care Provider] - 1-2 days Time of Disposition: 16:13
[2020-03-07 13:22] LABS: Basophils # (A) 0.1 k/uL (0-0.2); Basophils % (A) 0 %; Eosinophils # (A) 0.2 k/uL (0-0.7); Eosinophils % (A) 1 %; HCT 41.5 % (34.0-46.0); HGB 13.3 gm/dL (11.4-16.0); Lymphocytes # (A) 1.3 k/uL (1.0-4.8); Lymphocytes % (A) 8 %; MCV 96.9 fL (80.0-100.0); Monocytes # (A) 1.5 k/uL (0-1.0); Monocytes % (A) 10 %; Neutrophils # (A) 12.9 k/uL (1.3-7.7); Neutrophils % (A) 80 %; Platelet Count 406 k/uL (150-450); RBC 4.28 m/uL (3.80-5.40); RDW 15.9 % (11.5-15.5); WBC 16.1 k/uL (3.8-10.6)
[2020-03-07 13:25] LABS: D-Dimer 1.01 mg/L FEU (<0.60)
[2020-03-07] MEDS ORDERED: cefTRIAXone IN SWFI 1,000 MG/10 ML SYRINGE IVP STA (13:28)
[2020-03-07 13:49] LABS: Calcium 9.5 mg/dL (8.4-10.2); Magnesium 1.4 mg/dL (1.6-2.3); Potassium 4.1 mmol/L (3.5-5.1); Total Bilirubin 0.7 mg/dL (0.2-1.3); Total Protein 5.7 g/dL (6.3-8.2)
[2020-03-07] MEDS ORDERED: MAGNESIUM SULFATE-D5W PMX 1 GM in DEXTROSE/WATER 1 100ML.BAG IVPB ONE (15:07)
--- NOTE | 2020-03-07 15:33 | CT ---
CT CHEST FOR PULMONARY EMBOLISM. EXAMINATION TYPE: CT chest angio for PE DATE OF EXAM: 03/07/2020 INDICATION: Shortness of breath and weakness CT DLP: 519.5 mGycm, Automated exposure control for dose reduction was used. CONTRAST: Patient injected with 100 mL of Isovue 370. COMPARISON: None TECHNIQUE: CT of the chest is performed on a spiral scan at 2 mm thick sections. Study is performed with intravenous contrast timed for evaluation for pulmonary embolism. This will limit additional po rtions of the evaluation. 3-D MIP images reconstructed by the technologist are reviewed on the compu ter in the coronal and sagittal planes. FINDINGS: No persistent filling defects are evident to suggest an acute pulmonary embolism. No mediastinal or hilar adenopathy enlarged by CT criteria is evident. The ascending aorta diameter at the level of the main pulmonary artery is 3.5 cm. The main pulmonary artery diameter at the bifur cation is 2.5 cm. There is some vague opacity in the periphery of the left upper lung field. Series 406 image 43. Mild groundglass opacities are in the perihilar region slightly greater on the right and posterior right l ower lobe. There may be some minimal compressive atelectasis within the posterior right lung base. Limited CT section through the upper abdomen are unremarkable. IMPRESSIONS: 1. No acute pulmonary embolism. 2. Scattered mild infiltrates which are nonspecific. Consider atypical pneumonia.
[2020-03-07] MEDS ORDERED: ACETAMINOPHEN TAB 325 MG TAB PO PRN (16:08)
[2020-03-07] MEDS ORDERED: LORazepam 2 MG/ML INJ IV PRN (16:08)
[2020-03-07] MEDS ORDERED: MORPHINE SULFATE 4 MG/ML SYRINGE IV PRN (16:08)
[2020-03-07] MEDS ORDERED: NALOXONE 0.4 MG/ML 1 ML VIAL IV PRN (16:08)
[2020-03-07] MEDS ORDERED: SODIUM CHLORIDE 0.9% 1,000 ML IV SCH (16:15)
[2020-03-07] MEDS ORDERED: ALPRAZolam 0.25 MG TAB PO PRN (21:33)
[2020-03-07] MEDS ORDERED: ONDANSETRON ODT 4 MG TAB PO PRN (21:33)
[2020-03-07] MEDS ORDERED: TRIAMCINOLONE 0.1% CREAM 80 GM TUBE TOPICAL PRN (21:33)
[2020-03-07] MEDS ORDERED: NITROGLYCERIN SL TABS 0.4 MG TAB SUBLINGUAL PRN (21:33)
[2020-03-07] MEDS ORDERED: WARFARIN 2.5 MG TAB PO SCH (21:45)
[2020-03-08] MEDS: DULoxetine HCL 60 MG CAPSULE.DR PO SCH ×2 (00:03→20:56)
[2020-03-08] MEDS: SODIUM CHLORIDE 0.9% 1,000 ML IV SCH ×4 (00:03→23:10)
[2020-03-08] MEDS: GABAPENTIN 300 MG CAP PO SCH ×3 (00:03→20:56)
[2020-03-08] MEDS: allopurinoL 100 MG TAB PO SCH ×3 (00:04→20:56)
[2020-03-08 01:37] LABS: Ferritin 295.7 ng/mL (10.0-291.0)
[2020-03-08] MEDS: LATANOPROST 0.005% OPHTH DROPS 2.5 ML BTL BOTH EYES SCH ×2 (05:12→20:57)
[2020-03-08] MEDS: DICLOFENAC SODIUM GEL 100 GM TUBE TOPICAL SCH ×5 (05:12→20:56)
[2020-03-08] MEDS: MULTIVITAMINS, THERA 1 EACH TAB PO SCH (08:23)
[2020-03-08] MEDS: ISOSORBIDE MONONITRATE ER 60 MG TAB.ER.24H PO SCH (08:23)
[2020-03-08] MEDS: LACTOBACILLUS ACIDOPH & BULGAR 1 EACH PACKET PO SCH (08:23)
[2020-03-08] MEDS: PANTOPRAZOLE 40 MG TABLET PO SCH (08:23)
[2020-03-08] MEDS: FOLIC ACID 1 MG TAB PO SCH (08:23)
[2020-03-08] MEDS: CHOLECALCIFEROL 1,000 UNIT TAB PO SCH (08:23)
[2020-03-08] MEDS: CALCIUM CARB-VIT D 500MG-200UN 1 EACH TAB PO SCH (08:23)
[2020-03-08] MEDS: BUDESONIDE 0.5 MG/2 ML NEBU INHALATION SCH ×3 (11:33→19:31)
[2020-03-08] MEDS ORDERED: methylPREDNISolone SOD SUCCI 125 MG/2 ML VIAL IV STA (11:46)
[2020-03-08] MEDS ORDERED: FAMOTIDINE 20 MG TAB PO SCH (12:00)
[2020-03-08] MEDS: FAMOTIDINE 20 MG TAB PO SCH (13:25)
[2020-03-08] MEDS: ASCORBIC ACID 500 MG TAB PO SCH (13:25)
[2020-03-08] MEDS: methylPREDNISolone SOD SUCCI 40 MG/ML 1 ML VIAL IV SCH ×2 (16:40→23:09)
[2020-03-08] MEDS: ATORVASTATIN 20 MG TAB PO SCH (17:18)
[2020-03-08] MEDS: ZINC SULFATE 220 MG CAP PO SCH (17:18)
[2020-03-08] MEDS ORDERED: WARFARIN 5 MG TAB PO ONE (18:00)
[2020-03-08] MEDS: MELATONIN 1 MG TAB PO SCH (20:55)
[2020-03-08] MEDS: MONTELUKAST 10 MG TAB PO SCH (20:56)
--- NOTE | 2020-03-08 22:51 | P.HPIM ---
History of Present Illness H&P Date: 03/08/20 Chief Complaint: Weakness History of presenting complaint: Ms. Hanley is an 84-year-old female with a past medical history of COPD,, DVT, hypertension, hyperlipidemia, atrial fibrillation, osteoarthritis, degenerative joint disease, bradycardia status post pacemaker placement, . Recently discharged from the hospital on February 14 with acute diverticulitis. Readmitted on February 26 through March 04 with weakness and tiredness. Has some diarrhea. Diverticulitis.. Patient tested positive for COVID without any respiratory symptoms. Diarrhea improved. Patient now presents with decreased appetite. No diarrhea. No fever no chills. No loss of smell or taste. Tired rundown. Does use a walker. To go to the bathroom. Lives alone. 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 Recent COVID 19 diagnosis. Gout, osteoporosis. Glaucoma. 7) back pain. Social history: Patient smoked for 30 years. Stopped in 1989. Lives alone. Uses a walker. Physical examination: VITAL SIGNS: 98.1, 69, 18, 105/57, 98% on 2 L GENERAL: BMI 33.9, laying in bed, tired appearing awake comfortable. EYES: Pupils equal. Conjunctiva normal. HEENT: External appearance of nose and ears normal, oral cavity grossly normal. NECK: JVD not raised; masses not palpable. HEART: First and second heart sounds are normal; no edema. LUNGS: Respiratory rate increased, decreased breath sounds. ABDOMEN: Soft, nontender, liver spleen not palpable, no masses palpable. PSYCH: Alert and oriented x3; mood and affect anxiousl. MUSCULAR skeletal: Evidence of OA NEUROLOGICAL: Cranial nerves grossly intact; no facial asymmetry, power and sensation grossly intact. LYMPHATICS: No lymph nodes palpable in the axilla and neck Investigations: White count 16.1 hemoglobin 13.3 neutrophils 12.9 potassium 4.1 creatinine 1.0 Lactic acid 2.4 CRP 16 pro-calcitonin 0.12 EKG tracing personally reviewed by me-atrial fibrillation rate 92 CC chest angina for PE-no PE. Scattered minor infiltrates Assessment: -Acute post COVID 19 syndrome This patient recently a diagnosis of COVID 19. Had diarrhea. No respiratory symptoms. Presents now with weakness tiredness. Does not have any fever or chills. Limited history symptoms if any. This includes asthenia, loss of appetite -Metabolic myopathy: From recent COVID 19 infection. An medical debility -Sigmoid diverticulosis -Some COPD exacerbation in an ex-smoker Continue with Pulmicort. Add IV Solu-Medrol -Essential hypertension Continue with Lopressor, Cozaar --hyperlipidemia Continue with Zocor -Primary osteoarthritis Continue pain medications as necessary and Voltaren gel -Pacemaker for bradycardia -Chronic DVT: for which patient is on Coumadin -Persistent atrial fibrillation Continue with Coumadin -Chronic gait dysfunction: Continue using a walker -Acute medical debility from recent episode of diverticulitis and COVID 19 PT OT consulted -Disposition: analytical research program managermanager agency worker to be consulted. Discussion: This was done with the patient. Plan was discussed. Questions were answered. Patient did at least 2 nights stay in the hospital given the, co- morbidities. I do not see the patient to be safe to return home at this point. Past Medical History Past Medical History: Asthma, COPD, Deep Vein Thrombosis (DVT), Hyperlipidemia, Hypertension, Osteoarthritis (OA), Skin Disorder Additional Past Medical History / Comment(s): Hx. gout, osteoporosis, RA, DVT L upper arm, dermatitis, bilateral glaucoma, bradycardia- pacemaker, degenerative disc disease, cervical and back pain History of Any Multi-Drug Resistant Organisms: None Reported Past Surgical History: Adenoidectomy, Appendectomy, Cholecystectomy, Hernia Repair, Orthopedic Surgery, Pacemaker, Tonsillectomy, Tubal Ligation Additional Past Surgical History / Comment(s): Hx throat nodule removed, mole left eyelid, D&C, bilat cataracts removed . RIGHT KNEE REPLACEMENT X 2., shoulder surgeries , hiatal hernia repair, I&D L inguinal abscess. Past Anesthesia/Blood Transfusion Reactions: No Reported Reaction Type of Cardiac Device: Permanent Pacemaker Device Placement Date:: October 2012 Past Psychological History: No Psychological Hx Reported Smoking Status: Former smoker Past Alcohol Use History: None Reported Additional Past Alcohol Use History / Comment(s): Pt states she started smoking in her teens and quit in 1989 Past Drug Use History: None Reported - Past Family History Father Additional Family Medical History / Comment(s): Father pulmonary fibrosis Mother Family Medical History: Cancer Sister(s) Additional Family Medical History / Comment(s): melanoma Medications and Allergies Home Medications Medication Instructions Recorded Confirmed Type Bimatoprost [Lumigan .01% Ophth 1 drop BOTH EYES HS 11/07/13 03/07/20 History Soln] Gabapentin [Neurontin] 600 mg PO BID 11/07/13 03/07/20 History Isosorbide Mononitrate [Imdur] 60 mg PO DAILY 11/07/13 03/07/20 History Montelukast [Singulair] 10 mg PO HS 11/07/13 03/07/20 History allopurinoL [Zyloprim] 100 mg PO BID 07/09/14 03/07/20 History Budesonide [Pulmicort] 0.5 mg INHALATION RT-BID 03/29/16 03/07/20 History Omeprazole 20 mg PO BID 03/29/16 03/07/20 History Metoprolol Tartrate [Lopressor] 25 mg PO TID #0 04/13/16 03/07/20 Rx metHOTREXate sodium [Methotrexate] 25 mg PO FR 07/17/18 03/07/20 History DULoxetine HCL [Cymbalta] 60 mg PO HS 11/22/18 03/07/20 History Losartan [Cozaar] 50 mg PO DAILY 11/22/18 03/07/20 History Simvastatin [Zocor] 40 mg PO W/SUPPER 01/27/20 03/07/20 History Buprenorphine [Butrans 10 MCG/HOUR] 1 patch TRANSDERM TH 02/10/20 03/07/20 History Calcium Carbonate/Vitamin D3 1 tab PO DAILY 02/10/20 03/07/20 History [Calcium 600-D3 20Mcg(800 Unit)] Denosumab [Prolia] 60 mg SQ Q180D 02/10/20 03/07/20 History Folic Acid 1 mg PO DAILY 02/10/20 03/07/20 History L.acidoph,Paracasei, B.lactis 1 cap PO DAILY 02/10/20 03/07/20 History [Probiotic] Multivitamins, Thera [Multivitamin 1 tab PO DAILY 02/10/20 03/07/20 History (formulary)] Nitroglycerin Sl Tabs [Nitrostat] 0.4 mg SUBLINGUAL Q5M PRN 02/10/20 03/07/20 History Ondansetron Odt [Zofran ODT] 4 mg PO Q4H PRN 02/27/20 03/07/20 History Triamcinolone 0.1% Cream [Kenalog 1 applicatio TOPICAL BID PRN 02/27/20 03/07/20 History 0.1% Cream] Chlorthalidone 25 mg PO DAILY #30 tab 03/04/20 03/07/20 Rx Cholecalciferol [Vitamin D3 (25 1,000 unit PO DAILY #30 tab 03/04/20 03/07/20 Rx Mcg = 1000 Iu)] Diclofenac Sodium Gel [Voltaren 4 gm TOPICAL QID #1 tub 03/04/20 03/07/20 Rx Gel] Melatonin 3 mg PO HS #30 tablet 03/04/20 03/07/20 Rx Zinc Sulfate [Orazinc] 220 mg PO DAILY #30 cap 03/04/20 03/07/20 Rx ALPRAZolam [Xanax] 0.25 mg PO DAILY PRN 03/07/20 03/07/20 History Warfarin [Coumadin] 2.5 mg PO HS 03/07/20 03/07/20 History Allergies Allergy/AdvReac Type Severity Reaction Status Date / Time LUNA Inhibitors AdvReac Cough Verified 03/07/20 13:46 codeine AdvReac Nausea Verified 03/07/20 13:46 tape Allergy Unknown Uncoded 02/27/20 13:54 Physical Exam Vitals: Vital Signs Temp Pulse Pulse Resp BP BP Pulse Ox 03/08/20 08:00 97.7 F 93 20 72/50 97 03/08/20 05:50 97.6 F 90 17 103/54 96 03/08/20 02:20 97.6 F 107 H 18 86/53 93 L 03/07/20 22:15 97.9 F 105 H 19 96/52 94 L 03/07/20 20:34 89 19 03/07/20 20:02 97.7 F 89 19 102/53 97 03/07/20 20:00 97.9 F 91 18 106/67 98 03/07/20 16:12 98.2 F 84 18 128/69 98 03/07/20 15:14 72 20 118/89 98 03/07/20 13:52 98.1 F 69 18 105/57 98 03/07/20 13:15 78 20 03/07/20 13:03 86/43 03/07/20 11:41 98.9 F 76 18 103/45 95 Intake and Output 03/07/20 03/08/20 03/08/20 22:59 06:59 14:59 Intake Total 1200 1300 200 Balance 1200 1300 200 Intake: Amount of Fluid Infused ( 1200 ml) Intake, IV Titration 1000 Amount Sodium Chloride 0.9% 1, 1000 000 ml @ 100 mls/hr IV . Q10H [facility]BHASH Rx#:[id number] Oral 300 200 Other: # Voids 1 Weight 95.254 kg Results CBC & Chem 7: 03/07/20 12:27 03/07/20 13:10 Labs: Abnormal Lab Results - Last 24 Hours (Table) 03/07/20 03/07/20 03/07/20 Range/Units 12:27 12:27 12:27 WBC 16.1 H (3.8-10.6) k/uL RDW 15.9 H (11.5-15.5) % Neutrophils # 12.9 H (1.3-7.7) k/uL Monocytes # 1.5 H (0-1.0) k/uL PT 14.6 H (9.0-12.0) sec INR 1.5 H (<1.2) D-Dimer 1.01 H (<0.60) mg/L FEU Sodium (137-145) mmol/L BUN (7-17) mg/dL Glucose (74-99) mg/dL Plasma Lactic Acid Lalit 2.4 H* (0.7-2.0) mmol/L Magnesium (1.6-2.3) mg/dL Ferritin (10.0-291.0) ng/mL ALT (4-34) U/L C-Reactive Protein (<10.0) mg/L Total Protein (6.3-8.2) g/dL Albumin (3.5-5.0) g/dL Procalcitonin (0.02-0.09) ng/mL 03/07/20 03/07/20 Range/Units 13:10 13:10 WBC (3.8-10.6) k/uL RDW (11.5-15.5) % Neutrophils # (1.3-7.7) k/uL Monocytes # (0-1.0) k/uL PT (9.0-12.0) sec INR (<1.2) D-Dimer (<0.60) mg/L FEU Sodium 135 L (137-145) mmol/L BUN 28 H (7-17) mg/dL Glucose 102 H (74-99) mg/dL Plasma Lactic Acid Lalit (0.7-2.0) mmol/L Magnesium 1.4 L (1.6-2.3) mg/dL Ferritin 295.7 H (10.0-291.0) ng/mL ALT 37 H (4-34) U/L C-Reactive Protein 16.0 H (<10.0) mg/L Total Protein 5.7 L (6.3-8.2) g/dL Albumin 3.0 L (3.5-5.0) g/dL Procalcitonin 0.12 H (0.02-0.09) ng/mL Thrombosis Risk Factor Assmnt - Choose All That Apply Each Risk Factor Represents 3 Points: Age 75 years or older Thrombosis Risk Factor Assessment Total Risk Factor Score: 3 Thrombosis Risk Factor Assessment Level: Moderate Risk
[2020-03-09] MEDS: BUDESONIDE 0.5 MG/2 ML NEBU INHALATION SCH ×2 (08:00→19:36)
[2020-03-09] MEDS: CALCIUM CARB-VIT D 500MG-200UN 1 EACH TAB PO SCH (08:30)
[2020-03-09] MEDS: methylPREDNISolone SOD SUCCI 40 MG/ML 1 ML VIAL IV SCH ×2 (08:30→16:10)
[2020-03-09] MEDS: CHOLECALCIFEROL 1,000 UNIT TAB PO SCH (08:31)
[2020-03-09] MEDS: allopurinoL 100 MG TAB PO SCH ×2 (08:31→21:30)
[2020-03-09] MEDS: MULTIVITAMINS, THERA 1 EACH TAB PO SCH (08:31)
[2020-03-09] MEDS: DICLOFENAC SODIUM GEL 100 GM TUBE TOPICAL SCH ×4 (08:31→21:40)
[2020-03-09] MEDS: ISOSORBIDE MONONITRATE ER 60 MG TAB.ER.24H PO SCH (08:31)
[2020-03-09] MEDS: FOLIC ACID 1 MG TAB PO SCH (08:31)
[2020-03-09] MEDS: LACTOBACILLUS ACIDOPH & BULGAR 1 EACH PACKET PO SCH (08:31)
[2020-03-09] MEDS: GABAPENTIN 300 MG CAP PO SCH ×2 (08:31→21:30)
[2020-03-09] MEDS: FAMOTIDINE 20 MG TAB PO SCH (08:31)
[2020-03-09] MEDS: ASCORBIC ACID 500 MG TAB PO SCH (08:31)
[2020-03-09] MEDS: PANTOPRAZOLE 40 MG TABLET PO SCH (08:32)
[2020-03-09 12:01] LABS: INR 1.33 (0.90-1.11); Prothrombin Time 14.1 sec (9.9-11.9)
[2020-03-09] MEDS: SODIUM CHLORIDE 0.9% 1,000 ML IV SCH ×2 (13:00→21:40)
[2020-03-09] MEDS: ZINC SULFATE 220 MG CAP PO SCH (16:10)
[2020-03-09] MEDS: ATORVASTATIN 20 MG TAB PO SCH (16:10)
[2020-03-09] MEDS ORDERED: WARFARIN 5 MG TAB PO ONE (18:00)
[2020-03-09] MEDS: DULoxetine HCL 60 MG CAPSULE.DR PO SCH (21:30)
[2020-03-09] MEDS: MONTELUKAST 10 MG TAB PO SCH (21:30)
[2020-03-09] MEDS: MELATONIN 1 MG TAB PO SCH (21:30)
[2020-03-09] MEDS: LATANOPROST 0.005% OPHTH DROPS 2.5 ML BTL BOTH EYES SCH (21:31)
--- NOTE | 2020-03-10 00:38 | P.PN ---
Progress Note - Text Progress Note Date: 03/10/20 Chief Complaint: Weakness History of presenting complaint: Ms. Hanley is an 84-year-old female with a past medical history of COPD,, DVT, hypertension, hyperlipidemia, atrial fibrillation, osteoarthritis, degenerative joint disease, bradycardia status post pacemaker placement, . Recently discharged from the hospital on February 14 with acute diverticulitis. Readmitted on February 26 through March 04 with weakness and tiredness. Has some diarrhea. Diverticulitis.. Patient tested positive for COVID without any respiratory symptoms. Diarrhea improved. Patient now presents with decreased appetite. No diarrhea. No fever no chills. No loss of smell or taste. Tired rundown. Does use a walker. To go to the bathroom. Lives alone. Admitted with post COVID 19 syndrome. Weakness tiredness rundown. Looking to go to inpatient rehab. Today-feeling better. Eating most of her meals. Discussed with the patient. No new issues. Review of systems: Was done for constitutional, cardiovascular, GI, pulmonary. relevant finding as above Active Medications Acetaminophen (Acetaminophen Tab 325 Mg Tab) 650 mg PO Q6HR PRN PRN Reason: Mild Pain or Fever > 100.5 Allopurinol (Allopurinol 100 Mg Tab) 100 mg PO BID [facility] Last Admin: 03/09/20 21:30 Dose: 100 mg Documented by: Alprazolam (Alprazolam 0.25 Mg Tab) 0.25 mg PO DAILY PRN PRN Reason: Anxiety Last Admin: 03/08/20 00:04 Dose: 0.25 mg Documented by: Ascorbic Acid (Ascorbic Acid 500 Mg Tab) 500 mg PO DAILY [facility] Last Admin: 03/09/20 08:31 Dose: 500 mg Documented by: Atorvastatin Calcium (Atorvastatin 20 Mg Tab) 20 mg PO W/SUPPER [facility] Last Admin: 03/09/20 16:10 Dose: 20 mg Documented by: Budesonide (Budesonide 0.5 Mg/2 Ml Nebu) 0.5 mg INHALATION RT-BID [facility] Last Admin: 03/09/20 19:36 Dose: 0.5 mg Documented by: Calcium Carbonate (Calcium Carb-Vit D 500mg-200un 1 Each Tab) 1 each PO DAILY [facility] Last Admin: 03/09/20 08:30 Dose: 1 each Documented by: Cholecalciferol (Cholecalciferol 1,000 Unit Tab) 1,000 unit PO DAILY [facility] Last Admin: 03/09/20 08:31 Dose: 1,000 unit Documented by: Diclofenac Sodium (Diclofenac Sodium Gel 100 Gm Tube) 4 gm TOPICAL QID [facility] Last Admin: 03/09/20 21:40 Dose: Not Given Documented by: Duloxetine HCl (Duloxetine Hcl 60 Mg Capsule.Dr) 60 mg PO [facility] Last Admin: 03/09/20 21:30 Dose: 60 mg Documented by: Famotidine (Famotidine 20 Mg Tab) 20 mg PO DAILY [facility] Last Admin: 03/09/20 08:31 Dose: 20 mg Documented by: Folic Acid (Folic Acid 1 Mg Tab) 1 mg PO DAILY [facility] Last Admin: 03/09/20 08:31 Dose: 1 mg Documented by: Gabapentin (Gabapentin 300 Mg Cap) 600 mg PO BID [facility] Last Admin: 03/09/20 21:30 Dose: 600 mg Documented by: Sodium Chloride (Saline 0.9%) 1,000 mls @ 100 mls/hr IV .Q10H [facility] Last Admin: 03/09/20 21:40 Dose: Not Given Documented by: Isosorbide Mononitrate (Isosorbide Mononitrate Er 60 Mg Tab.Er.24h) 60 mg PO DAILY [facility] Last Admin: 03/09/20 08:31 Dose: 60 mg Documented by: Lactobacillus Acidoph/Bulgaricus (Lactobacillus Acidoph & Bulgar 1 Each Packet) 1 each PO W/BRKFST [facility] Last Admin: 03/09/20 08:31 Dose: 1 each Documented by: Latanoprost (Latanoprost 0.005% Ophth Drops 2.5 Ml Btl) 1 drops BOTH EYES [facility] Last Admin: 03/09/20 21:31 Dose: 1 drops Documented by: Melatonin (Melatonin 1 Mg Tab) 3 mg PO [facility] Last Admin: 03/09/20 21:30 Dose: 3 mg Documented by: Methylprednisolone Sodium Succinate (Methylprednisolone Sod Succi 40 Mg/Ml 1 Ml Vial) 40 mg IV Q8HR [facility] Last Admin: 03/09/20 16:10 Dose: 40 mg Documented by: Miscellaneous Information (Warfarin Per Pharmacy) 0 each MISCELLANE DIRECTED PRN PRN Reason: PHARMACY DOSING WARFARIN Montelukast Sodium (Montelukast 10 Mg Tab) 10 mg PO [facility] Last Admin: 03/09/20 21:30 Dose: 10 mg Documented by: Multivitamins (Multivitamins, Thera 1 Each Tab) 1 each PO DAILY [facility] Last Admin: 03/09/20 08:31 Dose: 1 each Documented by: Naloxone HCl (Naloxone 0.4 Mg/Ml 1 Ml Vial) 0.2 mg IV Q2M PRN PRN Reason: Opioid Reversal Nitroglycerin (Nitroglycerin Sl Tabs 0.4 Mg Tab) 0.4 mg SUBLINGUAL Q5M PRN PRN Reason: Chest Pain Non-Formulary Medication (Buprenorphine [Butrans 10 Mcg/Hour]) 1 patch TOPICAL TH [facility] Ondansetron HCl (Ondansetron Odt 4 Mg Tab) 4 mg PO Q4H PRN PRN Reason: Nausea Pantoprazole Sodium (Pantoprazole 40 Mg Tablet) 40 mg PO DAILY [facility] Last Admin: 03/09/20 08:32 Dose: 40 mg Documented by: Triamcinolone Acetonide (Triamcinolone 0.1% Cream 80 Gm Tube) 1 applic TOPICAL BID PRN PRN Reason: Rash Zinc Sulfate (Zinc Sulfate 220 Mg Cap) 220 mg PO W/SUPPER [facility] Last Admin: 03/09/20 16:10 Dose: 220 mg Documented by: Physical examination: VITAL SIGNS: 97.4, 92, 20, 125/75, 97% on 3 L GENERAL: BMI 33.9, laying in bed, awake comfortable. EYES: Pupils equal. Conjunctiva normal. NECK: JVD not raised; masses not palpable. HEART: First and second heart sounds are normal; no edema. LUNGS: Respiratory rate increased, decreased breath sounds. ABDOMEN: Soft, nontender, liver spleen not palpable, no masses palpable. PSYCH: Alert and oriented x3; mood and affect anxiousl. MUSCULAR skeletal: Evidence of OA Investigations: White count 16.1 hemoglobin 13.3 neutrophils 12.9 potassium 4.1 creatinine 1.0 Lactic acid 2.4 CRP 16 pro-calcitonin 0.12 EKG tracing personally reviewed by me-atrial fibrillation rate 92 CC chest angina for PE-no PE. Scattered minor infiltrates Assessment: -Acute post COVID 19 syndrome This patient recently a diagnosis of COVID 19. Had diarrhea. No respiratory symptoms. Presents now with weakness tiredness. Does not have any fever or chills. Limited history symptoms if any. This includes asthenia, loss of appetite. No appetite improving. -Metabolic myopathy: From recent COVID 19 infection. An medical debility -Sigmoid diverticulosis -Some COPD exacerbation in an ex-smoker Continue with Pulmicort. Add IV Solu-Medrol -Essential hypertension Continue with Lopressor, Cozaar --hyperlipidemia Continue with Zocor -Primary osteoarthritis Continue pain medications as necessary and Voltaren gel -Pacemaker for bradycardia -Chronic DVT: for which patient is on Coumadin -Persistent atrial fibrillation Continue with Coumadin -Chronic gait dysfunction: Continue using a walker -Acute medical debility from recent episode of diverticulitis and COVID 19 PT OT consulted -Disposition: transport company managermanager party worker to be consulted. Discussion: Current diagnoses Solu-Medrol. Other medications to continue. Await PTOT determination to see patient can go to PT rehab
[2020-03-10] MEDS: methylPREDNISolone SOD SUCCI 40 MG/ML 1 ML VIAL IV SCH ×3 (03:18→21:36)
[2020-03-10 08:37] LABS: INR 1.9 (<1.2); Prothrombin Time 18.2 sec (9.0-12.0)
[2020-03-10] MEDS: ASCORBIC ACID 500 MG TAB PO SCH (08:44)
[2020-03-10] MEDS: allopurinoL 100 MG TAB PO SCH ×2 (08:44→21:36)
[2020-03-10] MEDS: PANTOPRAZOLE 40 MG TABLET PO SCH (08:44)
[2020-03-10] MEDS: FAMOTIDINE 20 MG TAB PO SCH (08:44)
[2020-03-10] MEDS: CHOLECALCIFEROL 1,000 UNIT TAB PO SCH (08:44)
[2020-03-10] MEDS: CALCIUM CARB-VIT D 500MG-200UN 1 EACH TAB PO SCH (08:44)
[2020-03-10] MEDS: LACTOBACILLUS ACIDOPH & BULGAR 1 EACH PACKET PO SCH (08:44)
[2020-03-10] MEDS: MULTIVITAMINS, THERA 1 EACH TAB PO SCH (08:44)
[2020-03-10] MEDS: GABAPENTIN 300 MG CAP PO SCH ×2 (08:44→21:35)
[2020-03-10] MEDS: ISOSORBIDE MONONITRATE ER 60 MG TAB.ER.24H PO SCH (08:44)
[2020-03-10] MEDS: FOLIC ACID 1 MG TAB PO SCH (08:44)
[2020-03-10] MEDS: DICLOFENAC SODIUM GEL 100 GM TUBE TOPICAL SCH ×4 (08:45→21:48)
[2020-03-10] MEDS: BUDESONIDE 0.5 MG/2 ML NEBU INHALATION SCH (09:08)
[2020-03-10] MEDS: FLUTICASONE 110 MCG INHALER INHALATION SCH ×2 (09:25→20:59)
[2020-03-10] MEDS: ZINC SULFATE 220 MG CAP PO SCH (17:22)
[2020-03-10] MEDS: ATORVASTATIN 20 MG TAB PO SCH (17:22)
[2020-03-10] MEDS ORDERED: WARFARIN 2 MG TAB PO ONE (18:00)
[2020-03-10] MEDS: DULoxetine HCL 60 MG CAPSULE.DR PO SCH (21:35)
[2020-03-10] MEDS: MELATONIN 1 MG TAB PO SCH (21:36)
[2020-03-10] MEDS: MONTELUKAST 10 MG TAB PO SCH (21:36)
[2020-03-10] MEDS: LATANOPROST 0.005% OPHTH DROPS 2.5 ML BTL BOTH EYES SCH (21:37)
[2020-03-10] MEDS: SODIUM CHLORIDE 0.9% 1,000 ML IV SCH ×2 (21:37→21:48)
--- NOTE | 2020-03-10 23:32 | P.PN ---
Progress Note - Text Progress Note Date: 03/10/20 Chief Complaint: Weakness History of presenting complaint: Ms. Hanley is an 84-year-old female with a past medical history of COPD,, DVT, hypertension, hyperlipidemia, atrial fibrillation, osteoarthritis, degenerative joint disease, bradycardia status post pacemaker placement, . Recently discharged from the hospital on February 14 with acute diverticulitis. Readmitted on February 26 through March 04 with weakness and tiredness. Has some diarrhea. Diverticulitis.. Patient tested positive for COVID without any respiratory symptoms. Diarrhea improved. Patient now presents with decreased appetite. No diarrhea. No fever no chills. No loss of smell or taste. Tired rundown. Does use a walker. To go to the bathroom. Lives alone. Admitted with post COVID 19 syndrome. Weakness tiredness rundown. Looking to go to inpatient rehab. Today-tolerating diet. Sitting up. No new issues. Working with PT OT. Review of systems: Was done for constitutional, cardiovascular, GI, pulmonary. relevant finding as above Active Medications Acetaminophen (Acetaminophen Tab 325 Mg Tab) 650 mg PO Q6HR PRN PRN Reason: Mild Pain or Fever > 100.5 Allopurinol (Allopurinol 100 Mg Tab) 100 mg PO BID [facility] Last Admin: 03/10/20 21:36 Dose: 100 mg Documented by: Alprazolam (Alprazolam 0.25 Mg Tab) 0.25 mg PO DAILY PRN PRN Reason: Anxiety Last Admin: 03/08/20 00:04 Dose: 0.25 mg Documented by: Ascorbic Acid (Ascorbic Acid 500 Mg Tab) 500 mg PO DAILY [facility] Last Admin: 03/10/20 08:44 Dose: 500 mg Documented by: Atorvastatin Calcium (Atorvastatin 20 Mg Tab) 20 mg PO W/SUPPER [facility] Last Admin: 03/10/20 17:22 Dose: 20 mg Documented by: Calcium Carbonate (Calcium Carb-Vit D 500mg-200un 1 Each Tab) 1 each PO DAILY [facility] Last Admin: 03/10/20 08:44 Dose: 1 each Documented by: Cholecalciferol (Cholecalciferol 1,000 Unit Tab) 1,000 unit PO DAILY [facility] Last Admin: 03/10/20 08:44 Dose: 1,000 unit Documented by: Diclofenac Sodium (Diclofenac Sodium Gel 100 Gm Tube) 4 gm TOPICAL QID [facility] Last Admin: 03/10/20 21:48 Dose: Not Given Documented by: Duloxetine HCl (Duloxetine Hcl 60 Mg Capsule.Dr) [address] [facility] Last Admin: 03/10/20 21:35 Dose: 60 mg Documented by: Famotidine (Famotidine 20 Mg Tab) 20 mg PO DAILY [facility] Last Admin: 03/10/20 08:44 Dose: 20 mg Documented by: Fluticasone Propionate (Fluticasone 110 Mcg Inhaler) 2 puff INHALATION RT-BID [facility] Last Admin: 03/10/20 20:59 Dose: 2 puff Documented by: Folic Acid (Folic Acid 1 Mg Tab) 1 mg PO DAILY [facility] Last Admin: 03/10/20 08:44 Dose: 1 mg Documented by: Gabapentin (Gabapentin 300 Mg Cap) 600 mg PO BID [facility] Last Admin: 03/10/20 21:35 Dose: 600 mg Documented by: Sodium Chloride (Saline 0.9%) 1,000 mls @ 100 mls/hr IV .Q10H [facility] Last Admin: 03/10/20 21:48 Dose: Not Given Documented by: Isosorbide Mononitrate (Isosorbide Mononitrate Er 60 Mg Tab.Er.24h) 60 mg PO DAILY [facility] Last Admin: 03/10/20 08:44 Dose: 60 mg Documented by: Lactobacillus Acidoph/Bulgaricus (Lactobacillus Acidoph & Bulgar 1 Each Packet) 1 each PO W/BRKFST [facility] Last Admin: 03/10/20 08:44 Dose: 1 each Documented by: Latanoprost (Latanoprost 0.005% Ophth Drops 2.5 Ml Btl) [address] [facility] Last Admin: 03/10/20 21:37 Dose: 1 drops Documented by: Melatonin (Melatonin 1 Mg Tab) [address] [facility] Last Admin: 03/10/20 21:36 Dose: 3 mg Documented by: Methylprednisolone Sodium Succinate (Methylprednisolone Sod Succi 40 Mg/Ml 1 Ml Vial) 40 mg IV BID [facility] Last Admin: 03/10/20 21:36 Dose: 40 mg Documented by: Miscellaneous Information (Warfarin Per Pharmacy) 0 each MISCELLANE DIRECTED PRN PRN Reason: PHARMACY DOSING WARFARIN Montelukast Sodium (Montelukast 10 Mg Tab) [address] [facility] Last Admin: 03/10/20 21:36 Dose: 10 mg Documented by: Multivitamins (Multivitamins, Thera 1 Each Tab) 1 each PO DAILY [facility] Last Admin: 03/10/20 08:44 Dose: 1 each Documented by: Naloxone HCl (Naloxone 0.4 Mg/Ml 1 Ml Vial) 0.2 mg IV Q2M PRN PRN Reason: Opioid Reversal Nitroglycerin (Nitroglycerin Sl Tabs 0.4 Mg Tab) 0.4 mg SUBLINGUAL Q5M PRN PRN Reason: Chest Pain Non-Formulary Medication (Buprenorphine [Butrans 10 Mcg/Hour]) 1 patch TOPICAL TH [facility] Ondansetron HCl (Ondansetron Odt 4 Mg Tab) 4 mg PO Q4H PRN PRN Reason: Nausea Pantoprazole Sodium (Pantoprazole 40 Mg Tablet) 40 mg PO DAILY [facility] Last Admin: 03/10/20 08:44 Dose: 40 mg Documented by: Triamcinolone Acetonide (Triamcinolone 0.1% Cream 80 Gm Tube) 1 applic TOPICAL BID PRN PRN Reason: Rash Zinc Sulfate (Zinc Sulfate 220 Mg Cap) 220 mg PO W/SUPPER [facility] Last Admin: 03/10/20 17:22 Dose: 220 mg Documented by: Physical examination: VITAL SIGNS: 97.9, 96, 18, 151/89, 100% on 3 L GENERAL: BMI 33.9, sitting up in a chair, eating, comfortable EYES: Pupils equal. Conjunctiva normal. NECK: JVD not raised; masses not palpable. HEART: First and second heart sounds are normal; no edema. LUNGS: Respiratory rate increased, decreased breath sounds. ABDOMEN: Soft, nontender, liver spleen not palpable, no masses palpable. PSYCH: Alert and oriented x3; mood and affect anxiousl. MUSCULAR skeletal: Evidence of OA Investigations: March 10: INR 1.9 White count 16.1 hemoglobin 13.3 neutrophils 12.9 potassium 4.1 creatinine 1.0 Lactic acid 2.4 CRP 16 pro-calcitonin 0.12 EKG tracing personally reviewed by me-atrial fibrillation rate 92 CC chest angina for PE-no PE. Scattered minor infiltrates Assessment: -Acute post COVID 19 syndrome This patient recently a diagnosis of COVID 19. Had diarrhea. No respiratory symptoms. Presents now with weakness tiredness. Does not have any fever or chills. Limited history symptoms if any. This includes asthenia, loss of appetite. appetite is improved -Metabolic myopathy: From recent COVID 19 infection. An medical debility -Sigmoid diverticulosis -Some COPD exacerbation in an ex-smoker Continue with Pulmicort. Add IV Solu-Medrol. Cutback dose -Essential hypertension Continue with Lopressor, Cozaar --hyperlipidemia Continue with Zocor -Primary osteoarthritis Continue pain medications as necessary and Voltaren gel -Pacemaker for bradycardia -Chronic DVT: for which patient is on Coumadin -Persistent atrial fibrillation Continue with Coumadin -Chronic gait dysfunction: Continue using a walker -Acute medical debility from recent episode of diverticulitis and COVID 19 PT OT consulted -Disposition: games managerdistrict branch manager worker to be consulted. Discussion: decrease Solu-Medrol. Other medications to continue. await determination of placement.
[2020-03-11] MEDS ORDERED: predniSONE 20 MG TAB PO SCH (09:00)
[2020-03-11] MEDS: ISOSORBIDE MONONITRATE ER 60 MG TAB.ER.24H PO SCH (09:20)
[2020-03-11] MEDS: allopurinoL 100 MG TAB PO SCH (09:20)
[2020-03-11] MEDS: ASCORBIC ACID 500 MG TAB PO SCH (09:20)
[2020-03-11] MEDS: MULTIVITAMINS, THERA 1 EACH TAB PO SCH (09:20)
[2020-03-11] MEDS: FOLIC ACID 1 MG TAB PO SCH (09:20)
[2020-03-11] MEDS: CALCIUM CARB-VIT D 500MG-200UN 1 EACH TAB PO SCH (09:20)
[2020-03-11] MEDS: GABAPENTIN 300 MG CAP PO SCH (09:20)
[2020-03-11] MEDS: PANTOPRAZOLE 40 MG TABLET PO SCH (09:20)
[2020-03-11] MEDS: FAMOTIDINE 20 MG TAB PO SCH (09:21)
[2020-03-11] MEDS: CHOLECALCIFEROL 1,000 UNIT TAB PO SCH (09:21)
[2020-03-11] MEDS: LACTOBACILLUS ACIDOPH & BULGAR 1 EACH PACKET PO SCH (09:21)
[2020-03-11] MEDS: DICLOFENAC SODIUM GEL 100 GM TUBE TOPICAL SCH ×3 (09:21→17:28)
[2020-03-11] MEDS: FLUTICASONE 110 MCG INHALER INHALATION SCH (09:37)
[2020-03-11 10:09] LABS: INR 2.09 (0.90-1.11); Prothrombin Time 21.4 sec (9.9-11.9)
[2020-03-11 10:57] VITALS: RESP 16
[2020-03-11] MEDS ORDERED: METOPROLOL TARTRATE 25 MG TAB PO SCH (12:00)
--- NOTE | 2020-03-11 14:21 | P.DS ---
Providers Date of admission: 03/07/20 16:26 Expected date of discharge: 03/11/20 Attending physician: Ozzy Kitchen Primary care physician: Chalo Toi [facility] Course: Chief Complaint: Weakness History of presenting complaint: Ms. Hanley is an 84-year-old female with a past medical history of COPD,, DVT, hypertension, hyperlipidemia, atrial fibrillation, osteoarthritis, degenerative joint disease, bradycardia status post pacemaker placement, . Recently discharged from the hospital on February 14 with acute diverticulitis. Readmitted on February 26 through March 04 with weakness and tiredness. Has some diarrhea. Diverticulitis.. Patient tested positive for COVID without any respiratory symptoms. Diarrhea improved. Patient now presents with decreased appetite. No diarrhea. No fever no chills. No loss of smell or taste. Tired rundown. Does use a walker. To go to the bathroom. Lives alone. Admitted with post COVID 19 syndrome. Acute COPD exacerbation. Weakness tiredness rundown. Looking to go to inpatient rehab. Today-seen by PT OT. Feeling better. Steroids being tapered down. Eating well Physical examination: VITAL SIGNS: 98.2, 72, 20, 1 33 x 32, 98% on 2 L GENERAL: BMI 33.9, sitting up in a chair, eating, comfortable EYES: Pupils equal. Conjunctiva normal. NECK: JVD not raised; masses not palpable. HEART: First and second heart sounds are normal; no edema. LUNGS: Respiratory rate increased, decreased breath sounds. ABDOMEN: Soft, nontender, liver spleen not palpable, no masses palpable. PSYCH: Alert and oriented x3; mood and affect anxiousl. MUSCULAR skeletal: Evidence of OA Investigations: March 11: INR 2.09 March 10: INR 1.9 White count 16.1 hemoglobin 13.3 neutrophils 12.9 potassium 4.1 creatinine 1.0 Lactic acid 2.4 CRP 16 pro-calcitonin 0.12 EKG tracing personally reviewed by me-atrial fibrillation rate 92 CC chest angina for PE-no PE. Scattered minor infiltrates Assessment: -Acute post COVID 19 syndrome This patient recently a diagnosis of COVID 19. Had diarrhea. No respiratory symptoms. Presents now with weakness tiredness. Does not have any fever or chills. Limited history symptoms if any. This includes asthenia, loss of appetite. appetite is improved -Metabolic myopathy: From recent COVID 19 infection. medical debility -Sigmoid diverticulosis -Some COPD exacerbation in an ex-smoker Continue with Pulmicort. Add IV Solu-Medrol. Cutback dose -Essential hypertension Continue with Lopressor, Cozaar --hyperlipidemia Continue with Zocor -Primary osteoarthritis Continue pain medications as necessary and Voltaren gel -Pacemaker for bradycardia -Chronic DVT: for which patient is on Coumadin -Persistent atrial fibrillation Continue with Coumadin -Chronic gait dysfunction: Continue using a walker -Acute medical debility from recent episode of diverticulitis and COVID 19 PT OT Disposition: [facility] Patient Condition at Discharge: Stable Plan - Discharge Summary Discharge Rx Participant: No New Discharge Prescriptions: New Atorvastatin [Lipitor] 20 mg PO W/SUPPER tab Famotidine [Pepcid] 20 mg PO DAILY tab Acetaminophen Tab [Tylenol] 650 mg PO Q6HR PRN tab PRN Reason: Mild Pain Or Fever > 100.5 Ascorbic Acid [Vitamin C] 500 mg PO DAILY tab predniSONE 10 mg PO DAILY #30 tab Continue Isosorbide Mononitrate [Imdur] 60 mg PO DAILY Bimatoprost [Lumigan .01% Ophth Soln] 1 drop BOTH EYES HS Montelukast [Singulair] 10 mg PO HS allopurinoL [Zyloprim] 100 mg PO BID Omeprazole 20 mg PO BID Budesonide [Pulmicort] 0.5 mg INHALATION RT-BID DULoxetine HCL [Cymbalta] 60 mg PO HS Losartan [Cozaar] 50 mg PO DAILY Buprenorphine [Butrans 10 MCG/HOUR] 1 patch TRANSDERM TH Nitroglycerin Sl Tabs [Nitrostat] 0.4 mg SUBLINGUAL Q5M PRN PRN Reason: Chest Pain Denosumab [Prolia] 60 mg SQ Q180D Multivitamins, Thera [Multivitamin (formulary)] 1 tab PO DAILY L.acidoph,Paracasei, B.lactis [Probiotic] 1 cap PO DAILY Folic Acid 1 mg PO DAILY Calcium Carbonate/Vitamin D3 [Calcium 600-D3 20Mcg(800 Unit)] 1 tab PO DAILY Triamcinolone 0.1% Cream [Kenalog 0.1% Cream] 1 applicatio TOPICAL BID PRN PRN Reason: Rash Ondansetron Odt [Zofran ODT] 4 mg PO Q4H PRN PRN Reason: Nausea Melatonin 3 mg PO HS #30 tablet Zinc Sulfate [Orazinc] 220 mg PO DAILY #30 cap Cholecalciferol [Vitamin D3 (25 Mcg = 1000 Iu)] 1,000 unit PO DAILY #30 tab Diclofenac Sodium Gel [Voltaren Gel] 4 gm TOPICAL QID #1 tub Chlorthalidone 25 mg PO DAILY #30 tab Warfarin [Coumadin] 2.5 mg PO HS Gabapentin [Neurontin] 600 mg PO BID #6 tab ALPRAZolam [Xanax] 0.25 mg PO DAILY PRN #3 tab PRN Reason: Anxiety Changed Metoprolol Tartrate [Lopressor] 25 mg PO BID #0 Discontinued metHOTREXate sodium [Methotrexate] 25 mg PO FR Simvastatin [Zocor] 40 mg PO W/SUPPER Discharge Medication List Bimatoprost [Lumigan .01% Ophth Soln] 1 drop BOTH EYES HS 11/07/13 [History] Isosorbide Mononitrate [Imdur] 60 mg PO DAILY 11/07/13 [History] Montelukast [Singulair] 10 mg PO HS 11/07/13 [History] allopurinoL [Zyloprim] 100 mg PO BID 07/09/14 [History] Budesonide [Pulmicort] 0.5 mg INHALATION RT-BID 03/29/16 [History] Omeprazole 20 mg PO BID 03/29/16 [History] DULoxetine HCL [Cymbalta] 60 mg PO HS 11/22/18 [History] Losartan [Cozaar] 50 mg PO DAILY 11/22/18 [History] Buprenorphine [Butrans 10 MCG/HOUR] 1 patch TRANSDERM TH 02/10/20 [History] Calcium Carbonate/Vitamin D3 [Calcium 600-D3 20Mcg(800 Unit)] 1 tab PO DAILY 02/10/20 [History] Denosumab [Prolia] 60 mg SQ Q180D 02/10/20 [History] Folic Acid 1 mg PO DAILY 02/10/20 [History] L.acidoph,Paracasei, B.lactis [Probiotic] 1 cap PO DAILY 02/10/20 [History] Multivitamins, Thera [Multivitamin (formulary)] 1 tab PO DAILY 02/10/20 [History] Nitroglycerin Sl Tabs [Nitrostat] 0.4 mg SUBLINGUAL Q5M PRN 02/10/20 [History] Ondansetron Odt [Zofran ODT] 4 mg PO Q4H PRN 02/27/20 [History] Triamcinolone 0.1% Cream [Kenalog 0.1% Cream] 1 applicatio TOPICAL BID PRN 02/27/20 [History] Chlorthalidone 25 mg PO DAILY #30 tab 03/04/20 [Rx] Cholecalciferol [Vitamin D3 (25 Mcg = 1000 Iu)] 1,000 unit PO DAILY #30 tab 03/04/20 [Rx] Diclofenac Sodium Gel [Voltaren Gel] 4 gm TOPICAL QID #1 tub 03/04/20 [Rx] Melatonin 3 mg PO HS #30 tablet 03/04/20 [Rx] Zinc Sulfate [Orazinc] 220 mg PO DAILY #30 cap 03/04/20 [Rx] Warfarin [Coumadin] 2.5 mg PO HS 03/07/20 [History] ALPRAZolam [Xanax] 0.25 mg PO DAILY PRN #3 tab 03/11/20 [Rx] Acetaminophen Tab [Tylenol] 650 mg PO Q6HR PRN tab 03/11/20 [Rx] Ascorbic Acid [Vitamin C] 500 mg PO DAILY tab 03/11/20 [Rx] Atorvastatin [Lipitor] 20 mg PO W/SUPPER tab 03/11/20 [Rx] Famotidine [Pepcid] 20 mg PO DAILY tab 03/11/20 [Rx] Gabapentin [Neurontin] 600 mg PO BID #6 tab 03/11/20 [Rx] Metoprolol Tartrate [Lopressor] 25 mg PO BID #0 03/11/20 [Rx] predniSONE 10 mg PO DAILY #30 tab 03/11/20 [Rx] Follow up Appointment(s)/Referral(s): Royer Rayo DO [STAFF PHYSICIAN] - 1-2 Days Melissa Barrera [NON-STAFF] - As Needed Chalo Cm DO [Primary Care Provider] - As Needed
[2020-03-11 15:21] VITALS: BP 159/98; PULSE 94; TEMP 98.5
[2020-03-11] MEDS: ZINC SULFATE 220 MG CAP PO SCH (17:27)
[2020-03-11] MEDS: ATORVASTATIN 20 MG TAB PO SCH (17:27)
[2020-03-11] MEDS ORDERED: WARFARIN 2.5 MG TAB PO ONE (18:00)
[2020-03-13] MEDS ORDERED: BUPRENORPHINE TOPICAL SCH (09:00)
== END 2020-03-11 18:17 | DRG 92 ==
LOC: EC 11:34 → 6NMEDSUR 16:26 → 4SSUR 19:38
PROVIDERS: ADMIT Hospitalist; ATTEND Hospitalist
DX: G72.89 Other specified myopathies (principal); J44.1 Chronic obstructive pulmonary disease with (acute) exacerbation; I48.19 Other persistent atrial fibrillation; K57.30 Diverticulosis of large intestine without perforation or abscess without bleeding; I10 Essential (primary) hypertension; E78.5 Hyperlipidemia, unspecified; R26.9 Unspecified abnormalities of gait and mobility; M81.0 Age-related osteoporosis without current pathological fracture; M10.9 Gout, unspecified; M06.9 Rheumatoid arthritis, unspecified; H40.9 Unspecified glaucoma; D72.829 Elevated white blood cell count, unspecified; E83.42 Hypomagnesemia; R53.1 Weakness; R63.0 Anorexia; M19.91 Primary osteoarthritis, unspecified site; R53.81 Other malaise; Z79.01 Long term (current) use of anticoagulants; Z71.3 Dietary counseling and surveillance; Z79.899 Other long term (current) drug therapy; Z95.0 Presence of cardiac pacemaker; Z86.718 Personal history of other venous thrombosis and embolism; Z90.49 Acquired absence of other specified parts of digestive tract; Z87.19 Personal history of other diseases of the digestive system; Z98.890 Other specified postprocedural states; Z98.51 Tubal ligation status; Z98.42 Cataract extraction status, left eye; Z98.41 Cataract extraction status, right eye; Z96.651 Presence of right artificial knee joint; Z86.19 Personal history of other infectious and parasitic diseases; Z87.01 Personal history of pneumonia (recurrent); Z87.891 Personal history of nicotine dependence; Z80.8 Family history of malignant neoplasm of other organs or systems; Z83.6 Family history of other diseases of the respiratory system
CPT/HCPCS: 36415; 71045; 71275; 80053; 82728; 83605; 83615; 83735; 84145; 84484; 85025; 85379; 85610; 85730; 86140; 87040; 93005; 94640; 96361; 96365; 96366; 96375; 99285

== ENCOUNTER → 2020-06-25 | Outpatient (CLI) | payer MEDICARE ==
[~2020-06-25] MED LIST changes: -DENOSUMAB 60 MG/ML 1 ML SYRINGE SQ ONE
[2020-06-25 10:42] VITALS: BP 122/78; PULSE 77; RESP 16; TEMP 98
== END ==
LOC: PROCWHC3 10:20
PROVIDERS: ATTEND Family Medicine
DX: M81.0 Age-related osteoporosis without current pathological fracture (principal)
CPT/HCPCS: 96372; J0897

== ENCOUNTER 2020-08-31 12:30 | Inpatient (IN) | payer MEDICARE ==
[2020-08-31] MEDS ORDERED: SODIUM CHLORIDE 0.9% 1,000 ML IV STA (12:49)
[2020-08-31] MEDS ORDERED: MORPHINE SULFATE 4 MG/ML SYRINGE IV STA (12:49)
[2020-08-31] MEDS ORDERED: PANTOPRAZOLE 40 MG/10 ML VIAL IVP STA (12:49)
--- NOTE | 2020-08-31 12:53 | ED ---
General Adult HPI - General Chief complaint: Abdominal Pain Stated complaint: Abd Pain Time Seen by Provider: 08/31/20 12:38 Source: patient, RN notes reviewed Mode of arrival: ambulatory Limitations: no limitations - History of Present Illness Initial comments: Patient is a pleasant 85-year-old female presenting to the emergency Department with complaints of abdominal discomfort. Onset of symptoms was a couple of days ago. Patient has lower abdominal discomfort similar to previous diverticulitis. No nausea vomiting. No change in appetite. Patient has had some mixed constipation or diarrhea. No fevers. Discomfort is moderate. - Related Data Home Medications Medication Instructions Recorded Confirmed Bimatoprost [Lumigan .01% Ophth 1 drop BOTH EYES HS 11/07/13 06/25/20 Soln] Isosorbide Mononitrate [Imdur] 60 mg PO DAILY 11/07/13 06/25/20 Montelukast [Singulair] 10 mg PO HS 11/07/13 06/25/20 allopurinoL [Zyloprim] 100 mg PO BID 07/09/14 06/25/20 Budesonide [Pulmicort] 0.5 mg INHALATION RT-BID 03/29/16 06/25/20 Omeprazole 20 mg PO BID 03/29/16 06/25/20 DULoxetine HCL [Cymbalta] 60 mg PO HS 11/22/18 06/25/20 Losartan [Cozaar] 50 mg PO DAILY 11/22/18 06/25/20 Buprenorphine [Butrans 10 MCG/HOUR] 1 patch TRANSDERM TH 02/10/20 06/25/20 Calcium Carbonate/Vitamin D3 1 tab PO DAILY 02/10/20 06/25/20 [Calcium 600-D3 20 mcg (800 Unit)] Denosumab [Prolia] 60 mg SQ Q180D 02/10/20 06/25/20 Folic Acid 1 mg PO DAILY 02/10/20 06/25/20 L.acidoph,Paracasei, B.lactis 1 cap PO DAILY 02/10/20 06/25/20 [Probiotic] Multivitamins, Thera [Multivitamin 1 tab PO DAILY 02/10/20 06/25/20 (formulary)] Nitroglycerin Sl Tabs [Nitrostat] 0.4 mg SUBLINGUAL Q5M PRN 02/10/20 06/25/20 Ondansetron Odt [Zofran ODT] 4 mg PO Q4H PRN 02/27/20 06/25/20 Triamcinolone 0.1% Cream [Kenalog 1 applicatio TOPICAL BID PRN 02/27/20 06/25/20 0.1% Cream] Warfarin [Coumadin] 2.5 mg PO HS 03/07/20 06/25/20 Previous Rx's Medication Instructions Recorded Chlorthalidone 25 mg PO DAILY #30 tab 03/04/20 Cholecalciferol [Vitamin D3 (25 1,000 unit PO DAILY #30 tab 03/04/20 Mcg = 1000 Iu)] Diclofenac Sodium Gel [Voltaren 4 gm TOPICAL QID #1 tub 03/04/20 Gel] Melatonin 3 mg PO HS #30 tablet 03/04/20 Zinc Sulfate [Orazinc] 220 mg PO DAILY #30 cap 03/04/20 ALPRAZolam [Xanax] 0.25 mg PO DAILY PRN #3 tab 03/11/20 Acetaminophen Tab [Tylenol] 650 mg PO Q6HR PRN tab 03/11/20 Ascorbic Acid [Vitamin C] 500 mg PO DAILY tab 03/11/20 Atorvastatin [Lipitor] 20 mg PO W/SUPPER tab 03/11/20 Famotidine [Pepcid] 20 mg PO DAILY tab 03/11/20 Gabapentin [Neurontin] 600 mg PO BID #6 tab 03/11/20 Metoprolol Tartrate [Lopressor] 25 mg PO BID #0 03/11/20 predniSONE 10 mg PO DAILY #30 tab 03/11/20 Allergies Allergy/AdvReac Type Severity Reaction Status Date / Time LUNA Inhibitors AdvReac Cough Verified 06/25/20 10:23 codeine AdvReac Nausea Verified 06/25/20 10:23 tape Allergy Unknown Uncoded 06/25/20 10:23 Review of Systems ROS Statement: Those systems with pertinent positive or pertinent negative responses have been documented in the HPI. ROS Other: All systems not noted in ROS Statement are negative. Constitutional: Denies: fever Eyes: Denies: eye pain ENT: Denies: ear pain Respiratory: Denies: cough Cardiovascular: Denies: chest pain Endocrine: Denies: fatigue Gastrointestinal: Reports: as per HPI, abdominal pain, diarrhea, constipation Genitourinary: Denies: dysuria Musculoskeletal: Denies: back pain Skin: Denies: rash Neurological: Denies: weakness Past Medical History Past Medical History: Asthma, COPD, Deep Vein Thrombosis (DVT), Hyperlipidemia, Hypertension, Osteoarthritis (OA), Skin Disorder Additional Past Medical History / Comment(s): Hx. gout, osteoporosis, RA, DVT L upper arm, dermatitis, bilateral glaucoma, bradycardia- pacemaker, degenerative disc disease, cervical and back pain History of Any Multi-Drug Resistant Organisms: None Reported Past Surgical History: Adenoidectomy, Appendectomy, Cholecystectomy, Hernia Repair, Orthopedic Surgery, Pacemaker, Tonsillectomy, Tubal Ligation Additional Past Surgical History / Comment(s): Hx throat nodule removed, mole left eyelid, D&C, bilat cataracts removed . RIGHT KNEE REPLACEMENT X 2., shoulder surgeries , hiatal hernia repair, I&D L inguinal abscess. Past Anesthesia/Blood Transfusion Reactions: No Reported Reaction Type of Cardiac Device: Permanent Pacemaker Device Placement Date:: October 2012 Past Psychological History: No Psychological Hx Reported Smoking Status: Former smoker Past Alcohol Use History: None Reported Past Drug Use History: None Reported - Past Family History Father Additional Family Medical History / Comment(s): Father pulmonary fibrosis Mother Family Medical History: Cancer Sister(s) Additional Family Medical History / Comment(s): melanoma General Exam Limitations: no limitations General appearance: alert, in no apparent distress Head exam: Present: normocephalic Eye exam: Present: normal appearance Neck exam: Present: normal inspection Respiratory exam: Present: normal lung sounds bilaterally Cardiovascular Exam: Present: regular rate, normal rhythm Expanded Peripheral pulses: 2+: Dorsalis Pedis (R), Dorsalis Pedis (L) GI/Abdominal exam: Present: soft, tenderness (Moderate lower abdominal tenderness to palpate), normal bowel sounds. Absent: distended, guarding, rebound, rigid, pulsatile mass Extremities exam: Present: normal inspection Neurological exam: Present: alert Psychiatric exam: Present: normal affect, normal mood Skin exam: Present: abrasion (Left lower leg) Course Vital Signs 08/31/20 12:31 Temperature 98.6 F Pulse Rate 92 Respiratory 16 Rate Blood Pressure 111/70 O2 Sat by Pulse 97 Oximetry Medical Decision Making - Medical Decision Making Patient reevaluated and updated. Patient is still having some discomfort of the lower abdomen. Patient would prefer seeing hospital. Case was discussed with Dr. Vasquez, covering for Dr. Cm, who will admit. - Lab Data Result diagrams: 08/31/20 13:11 08/31/20 13:11 Lab Results 08/31/20 08/31/20 08/31/20 Range/Units 13:11 13:11 13:11 WBC 10.5 (3.8-10.6) k/uL RBC 3.66 L (3.80-5.40) m/uL Hgb 10.9 L (11.4-16.0) gm/dL Hct 34.6 (34.0-46.0) % MCV 94.7 (80.0-100.0) fL MCH 29.8 (25.0-35.0) pg MCHC 31.4 (31.0-37.0) g/dL RDW 18.0 H (11.5-15.5) % Plt Count 348 (150-450) k/uL MPV 7.3 Neutrophils % 78 % Lymphocytes % 14 % Monocytes % 5 % Eosinophils % 1 % Basophils % 0 % Neutrophils # 8.3 H (1.3-7.7) k/uL Lymphocytes # 1.4 (1.0-4.8) k/uL Monocytes # 0.5 (0-1.0) k/uL Eosinophils # 0.1 (0-0.7) k/uL Basophils # 0.0 (0-0.2) k/uL Hypochromasia Slight Anisocytosis Slight Macrocytosis Slight PT 22.9 H (9.0-12.0) sec INR 2.4 H (<1.2) APTT 38.7 H (22.0-30.0) sec Sodium (137-145) mmol/L Potassium (3.5-5.1) mmol/L Chloride (98-107) mmol/L Carbon Dioxide (22-30) mmol/L Anion Gap mmol/L BUN (7-17) mg/dL Creatinine (0.52-1.04) mg/dL Est GFR (CKD-EPI)AfAm (>60 ml/min/1.73 sqM) Est GFR (CKD-EPI)NonAf (>60 ml/min/1.73 sqM) Glucose (74-99) mg/dL Calcium (8.4-10.2) mg/dL Total Bilirubin (0.2-1.3) mg/dL AST (14-36) U/L ALT (4-34) U/L Alkaline Phosphatase (38-126) U/L Total Protein (6.3-8.2) g/dL Albumin (3.5-5.0) g/dL Amylase (30-110) U/L Lipase (23-300) U/L Urine Color Yellow Urine Appearance Clear (Clear) Urine pH 6.0 (5.0-8.0) Ur Specific [place] 1.017 (1.001-1.035) Urine Protein Trace H (Negative) Urine Glucose (UA) Negative (Negative) Urine Ketones Negative (Negative) Urine Blood Small H (Negative) Urine Nitrite Negative (Negative) Urine Bilirubin Negative (Negative) Urine Urobilinogen <2.0 (<2.0) mg/dL Ur Leukocyte Esterase Trace H (Negative) Urine RBC <1 (0-5) /hpf Urine WBC 1 (0-5) /hpf Ur Squamous Epith Cells <1 (0-4) /hpf Urine Bacteria Rare H (None) /hpf Urine Mucus Rare H (None) /hpf 08/31/20 Range/Units 13:11 WBC (3.8-10.6) k/uL RBC (3.80-5.40) m/uL Hgb (11.4-16.0) gm/dL Hct (34.0-46.0) % MCV (80.0-100.0) fL MCH (25.0-35.0) pg MCHC (31.0-37.0) g/dL RDW (11.5-15.5) % Plt Count (150-450) k/uL MPV Neutrophils % % Lymphocytes % % Monocytes % % Eosinophils % % Basophils % % Neutrophils # (1.3-7.7) k/uL Lymphocytes # (1.0-4.8) k/uL Monocytes # (0-1.0) k/uL Eosinophils # (0-0.7) k/uL Basophils # (0-0.2) k/uL Hypochromasia Anisocytosis Macrocytosis PT (9.0-12.0) sec INR (<1.2) APTT (22.0-30.0) sec Sodium 135 L (137-145) mmol/L Potassium 4.0 (3.5-5.1) mmol/L Chloride 102 (98-107) mmol/L Carbon Dioxide 27 (22-30) mmol/L Anion Gap 6 mmol/L BUN 21 H (7-17) mg/dL Creatinine 0.72 (0.52-1.04) mg/dL Est GFR (CKD-EPI)AfAm >90 (>60 ml/min/1.73 sqM) Est GFR (CKD-EPI)NonAf 78 (>60 ml/min/1.73 sqM) Glucose 93 (74-99) mg/dL Calcium 9.2 (8.4-10.2) mg/dL Total Bilirubin 0.5 (0.2-1.3) mg/dL AST 40 H (14-36) U/L ALT 23 (4-34) U/L Alkaline Phosphatase 107 (38-126) U/L Total Protein 6.1 L (6.3-8.2) g/dL Albumin 3.4 L (3.5-5.0) g/dL Amylase 67 (30-110) U/L Lipase 67 (23-300) U/L Urine Color Urine Appearance (Clear) Urine pH (5.0-8.0) Ur Specific [place] (1.001-1.035) Urine Protein (Negative) Urine Glucose (UA) (Negative) Urine Ketones (Negative) Urine Blood (Negative) Urine Nitrite (Negative) Urine Bilirubin (Negative) Urine Urobilinogen (<2.0) mg/dL Ur Leukocyte Esterase (Negative) Urine RBC (0-5) /hpf Urine WBC (0-5) /hpf Ur Squamous Epith Cells (0-4) /hpf Urine Bacteria (None) /hpf Urine Mucus (None) /hpf - Radiology Data Radiology results: report reviewed (Computed tomography scan abdomen pelvis concerning for diverticulitis. Mild fluid.) Disposition Clinical Impression: Diverticulitis Disposition: ADMITTED IP TO THIS HOSP Is patient prescribed a controlled substance at d/c from ED?: No Referrals: Chalo Cm DO [Primary Care Provider] - 1-2 days Decision Time: 15:42
[2020-08-31 13:36] LABS: ALT 23 U/L (4-34); AST 40 U/L (14-36); African American GFR (CKD) >90 (>60 ml/min/1.73 sqM); Albumin 3.4 g/dL (3.5-5.0); Alkaline Phosphatase 107 U/L (38-126); Amylase 67 U/L (30-110); Anion Gap 6 mmol/L; Blood Urea Nitrogen 21 mg/dL (7-17); Calcium 9.2 mg/dL (8.4-10.2); Carbon Dioxide 27 mmol/L (22-30); Chloride 102 mmol/L (98-107); Glucose 93 mg/dL (74-99); Lipase 67 U/L (23-300); Non-African American GFR(CKD) 78 (>60 ml/min/1.73 sqM); Sodium 135 mmol/L (137-145); Total Bilirubin 0.5 mg/dL (0.2-1.3); Total Protein 6.1 g/dL (6.3-8.2)
[2020-08-31 13:39] LABS: INR 2.4 (<1.2); Partial Thromboplastin Time 38.7 sec (22.0-30.0); Prothrombin Time 22.9 sec (9.0-12.0)
[2020-08-31 13:50] LABS: Appearance,Urine Clear (Clear); Bacteria,Urine Rare /hpf; Bilirubin,Urine Negative (Negative); Blood,Urine Small (Negative); Color,Urine Yellow; Glucose,Urine (UA) Negative (Negative); Ketones,Urine Negative (Negative); Leukocyte Esterase,Urine Trace (Negative); Mucus,Urine Rare /hpf; Nitrite,Urine Negative (Negative); Protein,Urine Trace (Negative); RBC,Urine <1 /hpf (0-5); Specific Gravity,Urine 1.017 (1.001-1.035); Squamous Epithelial Cell,Urine <1 /hpf (0-4); Urobilinogen,Urine <2.0 mg/dL (<2.0); WBC,Urine 1 /hpf (0-5)
[2020-08-31 13:51] LABS: Anisocytosis Slight; Basophils % (A) 0 %; Eosinophils # (A) 0.1 k/uL (0-0.7); Eosinophils % (A) 1 %; HCT 34.6 % (34.0-46.0); HGB 10.9 gm/dL (11.4-16.0); Hypochromasia Slight; Lymphocytes # (A) 1.4 k/uL (1.0-4.8); Lymphocytes % (A) 14 %; MCH 29.8 pg (25.0-35.0); MCHC 31.4 g/dL (31.0-37.0); MCV 94.7 fL (80.0-100.0); Macrocytosis Slight; Mean Platelet Volume 7.3; Monocytes # (A) 0.5 k/uL (0-1.0); Monocytes % (A) 5 %; Neutrophils # (A) 8.3 k/uL (1.3-7.7); Neutrophils % (A) 78 %; Platelet Count 348 k/uL (150-450); RBC 3.66 m/uL (3.80-5.40); WBC 10.5 k/uL (3.8-10.6)
--- NOTE | 2020-08-31 15:05 | CT ---
EXAMINATION TYPE: CT abdomen pelvis w con DATE OF EXAM: 08/31/2020 COMPARISON: 02/27/2020 HISTORY: Lower abdominal pain. CT DLP: 1407.4 mGycm Automated exposure control for dose reduction was used. CONTRAST: Performed with IV Contrast, patient injected with 100 mL of Isovue 300. Images obtained from the diaphragm to the floor the pelvis with IV contrast. There is some mild interstitial density at the lung bases consistent with scarring and subsegmental a telectasis. There is no pleural effusion. Heart is slightly enlarged. There are surgical clips at the gastroesophageal junction. There are clips from cholecystectomy. Liver spleen stomach pancreas appear intact. The bile ducts are not dilated. There is no adrenal mass. There is 3 cm cortical cyst medial upper pole left kidney. De layed images show fairly normal renal excretion. There is no hydronephrosis. There is no retroperiton eal adenopathy. Abdominal aorta is atheromatous. There is thinning of the anterior abdominal wall. There is small amount of free fluid in the pelvis. Bladder distends smoothly. There is no inguinal he rnia. There is fat stranding around the mid sigmoid colon with multiple diverticula. There is wall thickeni ng. Appendix is not seen. There is no sign of thickened appendix. There is mild lumbar levoscoliosis. The re is multilevel degenerative disc space narrowing. There is no compression fracture. There is a mini mal first-degree degenerative L5-S1 spondylolisthesis. The hip joints are intact. IMPRESSION: Sigmoid diverticulitis. Mild free fluid in the pelvis. Cardiomegaly. Fibrotic changes and subsegmental atelectasis at the lung bases. Lung disease not significantly different than old exam. There is clearing of the diverticulitis of the proximal sigmoid colon compared to old exam. Diverticu litis in the mid sigmoid colon is new compared to old exam.
[2020-08-31] MEDS ORDERED: PIPERACILLIN-TAZOBACTAM 3.375 GM in SODIUM CHLORIDE 0.9% 100 ML IVPB STA (15:47)
[2020-08-31] MEDS ORDERED: NALOXONE 0.4 MG/ML 1 ML VIAL IV PRN (15:48)
[2020-08-31] MEDS: SODIUM CHLORIDE 0.9% 1,000 ML IV SCH ×2 (16:27→20:17)
[2020-08-31] MEDS: MORPHINE SULFATE 4 MG/ML SYRINGE IV PRN (16:45)
--- NOTE | 2020-08-31 21:24 | P.HPIM ---
History of Present Illness H&P Date: 08/31/20 Chief Complaint: Abdominal pain 85-year-old female, history of COPD/asthma, hypertension, hyperlipidemia and DVT; presenting to the emergency Department with complaints of abdominal discomfort. Onset of symptoms was a couple of days ago. Patient has lower abdominal discomfort similar to previous diverticulitis. No nausea vomiting. No change in appetite. Patient has had some mixed constipation or diarrhea. No fevers. Discomfort is moderate. Patient was worked up in ED with a CT of the abdomen which was positive for acute diverticulitis; lab work was done and revealed the WBC of 10.5, hemoglobin of 10.9 and platelet count of 348; chemical profile so shows sodium of 135, potassium 4.0, BUN of 21 with creatinine of 0.7 to Review of Systems REVIEW OF SYSTEMS: CONSTITUTIONAL: No fever, no malaise, no fatigue. HEENT: No recent visual problems or hearing problems. Denied any sore throat. CARDIOVASCULAR: No chest pain, orthopnea, PND, no palpitations, no syncope. PULMONARY: No shortness of breath, no cough, no hemoptysis. GASTROINTESTINAL: No diarrhea, no nausea, no vomiting, no abdominal pain. NEUROLOGICAL: No headaches, no weakness, no numbness. HEMATOLOGICAL: Denies any bleeding or petechiae. GENITOURINARY: Denies any burning micturition, frequency, or urgency. MUSCULOSKELETAL/RHEUMATOLOGICAL: Denies any joint pain, swelling, or any muscle pain. ENDOCRINE: Denies any polyuria or polydipsia. The rest of the 14-point review of systems is negative. Past Medical History Past Medical History: Asthma, COPD, Deep Vein Thrombosis (DVT), Hyperlipidemia, Hypertension, Osteoarthritis (OA), Rheumatoid Arthritis (RA), Skin Disorder Additional Past Medical History / Comment(s): Hx. gout, DVT L upper arm, dermatitis, bilateral glaucoma, bradycardia- pacemaker, degenerative disc disease, cervical and back pain History of Any Multi-Drug Resistant Organisms: None Reported Past Surgical History: Adenoidectomy, Appendectomy, Cholecystectomy, Hernia Repair, Orthopedic Surgery, Pacemaker, Tonsillectomy, Tubal Ligation Additional Past Surgical History / Comment(s): Hx throat nodule removed, mole left eyelid, D&C, bilat cataracts removed . RIGHT KNEE REPLACEMENT X 2., shoulder surgeries , hiatal hernia repair, I&D L inguinal abscess, right wrist surgery Past Anesthesia/Blood Transfusion Reactions: No Reported Reaction Type of Cardiac Device: Permanent Pacemaker Device Placement Date:: October 2012 Past Psychological History: No Psychological Hx Reported Smoking Status: Former smoker Past Alcohol Use History: None Reported Past Drug Use History: None Reported - Past Family History Father Additional Family Medical History / Comment(s): Father pulmonary fibrosis Mother Family Medical History: Cancer Sister(s) Additional Family Medical History / Comment(s): melanoma Medications and Allergies Home Medications Medication Instructions Recorded Confirmed Type Bimatoprost [Lumigan .01% Ophth 1 drop BOTH EYES HS 11/07/13 08/31/20 History Soln] Isosorbide Mononitrate [Imdur] 60 mg PO DAILY 11/07/13 08/31/20 History Montelukast [Singulair] 10 mg PO HS 11/07/13 08/31/20 History allopurinoL [Zyloprim] 100 mg PO BID 07/09/14 08/31/20 History Budesonide [Pulmicort] 0.5 mg INHALATION RT-BID 03/29/16 08/31/20 History Omeprazole 20 mg PO BID 03/29/16 08/31/20 History DULoxetine HCL [Cymbalta] 60 mg PO HS 11/22/18 08/31/20 History Denosumab [Prolia] 60 mg SQ Q180D 02/10/20 08/31/20 History Folic Acid 1 mg PO DAILY 02/10/20 08/31/20 History Multivitamins, Thera [Multivitamin 1 tab PO DAILY 02/10/20 08/31/20 History (formulary)] Nitroglycerin Sl Tabs [Nitrostat] 0.4 mg SUBLINGUAL Q5M PRN 02/10/20 08/31/20 History Warfarin [Coumadin] 2.5 mg PO FR@1800 03/07/20 08/31/20 History Famotidine [Pepcid] 20 mg PO DAILY tab 03/11/20 08/31/20 Rx Gabapentin [Neurontin] 600 mg PO BID #6 tab 03/11/20 08/31/20 Rx Atorvastatin [Lipitor] 20 mg PO HS 08/31/20 08/31/20 History Calcium Carbonate [Calcium] 600 mg PO DAILY 08/31/20 08/31/20 History Cholecalciferol [Vitamin D3 (25 25 mcg PO DAILY 08/31/20 08/31/20 History Mcg = 1000 Iu)] Metoprolol Tartrate [Lopressor] 25 mg PO TID 08/31/20 08/31/20 History Sucralfate [Carafate] 1 gm PO DAILY 08/31/20 08/31/20 History Warfarin [Coumadin] 5 mg PO SUMOTUWETHSA@1800 08/31/20 08/31/20 History hydroCHLOROthiazide 25 mg PO DAILY 08/31/20 08/31/20 History metHOTREXate sodium [Methotrexate] 25 mg PO FR 08/31/20 08/31/20 History Allergies Allergy/AdvReac Type Severity Reaction Status Date / Time LUNA Inhibitors AdvReac Cough Verified 08/31/20 17:50 tape Allergy Unknown Uncoded 08/31/20 17:50 Physical Exam Vitals: Vital Signs Temp Pulse Pulse Resp BP BP Pulse Ox 08/31/20 19:57 18 08/31/20 19:50 98.1 F 79 18 95/53 98 08/31/20 17:45 97.7 F 88 18 129/67 99 08/31/20 16:37 97.8 F 78 18 122/66 99 08/31/20 15:00 98.1 F 93 16 128/84 99 08/31/20 12:31 98.6 F 92 16 111/70 97 Intake and Output 08/31/20 08/31/20 08/31/20 06:59 14:59 22:59 Other: Voiding Method Toilet # Voids 1 Weight 89.811 kg 90.718 kg - Constitutional General appearance: Present: average body habitus, cooperative, no acute distre ss - EENT Eyes: Present: anicteric sclerae, EOMI, PERRLA, normal appearance ENT: Present: hearing grossly normal, normal oropharynx Ears: bilateral: normal - Neck Neck: Present: normal ROM. Absent: lymphadenopathy, rigidity, thyromegaly Carotids: negative: bruit present Thyroid: bilateral: normal size, negative: enlarged, nodule - Respiratory Respiratory: bilateral: CTA, negative: rales, rhonchi, wheezing - Cardiovascular Rhythm: regular Heart sounds: normal: S1, S2 Abnormal Heart Sounds: Absent: systolic murmur, diastolic murmur - Gastrointestinal General gastrointestinal: Present: normal bowel sounds, soft. Absent: distended, organomegaly, tenderness - Genitourinary Genitourinary Comment(s): deferred - Integumentary Integumentary: Present: normal turgor. Absent: jaundiced, rash, ulcer - Neurologic Neurologic: Present: CNII-XII intact. Absent: focal deficits - Musculoskeletal Musculoskeletal: Present: gait normal, strength equal bilaterally - Psychiatric Psychiatric: Present: A&O x's 3, appropriate affect, intact judgment & insight Results CBC & Chem 7: 08/31/20 13:11 08/31/20 13:11 Labs: Abnormal Lab Results - Last 24 Hours (Table) 08/31/20 08/31/20 08/31/20 Range/Units 13:11 13:11 13:11 RBC 3.66 L (3.80-5.40) m/uL Hgb 10.9 L (11.4-16.0) gm/dL RDW 18.0 H (11.5-15.5) % Neutrophils # 8.3 H (1.3-7.7) k/uL PT 22.9 H (9.0-12.0) sec INR 2.4 H (<1.2) APTT 38.7 H (22.0-30.0) sec Sodium (137-145) mmol/L BUN (7-17) mg/dL AST (14-36) U/L Total Protein (6.3-8.2) g/dL Albumin (3.5-5.0) g/dL Urine Protein Trace H (Negative) Urine Blood Small H (Negative) Ur Leukocyte Esterase Trace H (Negative) Urine Bacteria Rare H (None) /hpf Urine Mucus Rare H (None) /hpf 08/31/20 Range/Units 13:11 RBC (3.80-5.40) m/uL Hgb (11.4-16.0) gm/dL RDW (11.5-15.5) % Neutrophils # (1.3-7.7) k/uL PT (9.0-12.0) sec INR (<1.2) APTT (22.0-30.0) sec Sodium 135 L (137-145) mmol/L BUN 21 H (7-17) mg/dL AST 40 H (14-36) U/L Total Protein 6.1 L (6.3-8.2) g/dL Albumin 3.4 L (3.5-5.0) g/dL Urine Protein (Negative) Urine Blood (Negative) Ur Leukocyte Esterase (Negative) Urine Bacteria (None) /hpf Urine Mucus (None) /hpf Thrombosis Risk Factor Assmnt - Choose All That Apply Any of the Below Risk Factors Present?: Yes Each Factor Represents 1 point: Abnormal pulmonary function (COPD), Obesity (BMI >25) Other Risk Factors: Yes Each Risk Factor Represents 3 Points: Age 75 years or older, History of DVT/PE Thrombosis Risk Factor Assessment Total Risk Factor Score: 8 Thrombosis Risk Factor Assessment Level: High Risk Assessment and Plan Assessment: 1. Acute diverticulitis - Patient is started on IV Zosyn at 3.375 g IV every 12 hours; IV fluid hydration with normal saline at a rate of 75 mL an hour - Pain controlled with morphine for gram IV every 4 hours when necessary - Patient is to start on Protonix 40 mg daily 2. Anemia; not short of baseline hemoglobin; we will monitor CBC closely; stool occult blood; iron studies 3. Mild renal injury/dehydration; IV fluid hydration with normal saline as indicated above; monitor strict SADIE's, daily weights, renal function and electrolytes; avoid nephrotoxins and hypotension 4. Hyperlipidemia; Lipitor 40 mg by mouth daily at bedtime 5. Hypertension; continue with home dose of metoprolol 25 mg 3 times a day, Imdur 60 mg daily; hold hydrochlorothiazide 6. COPD/asthma; continue with home inhaler regimen 7. Depression; Cymbalta 60 mg by mouth daily at bedtime DVT prophylaxis; SCDs/subcu heparin CODE STATUS; full code
[2020-08-31] MEDS ORDERED: WARFARIN 2.5 MG TAB PO SCH (22:00)
[2020-08-31] MEDS: METOPROLOL TARTRATE 25 MG TAB PO SCH (22:30)
[2020-09-01] MEDS: PIPERACILLIN-TAZOBACTAM 3.375 GM in SODIUM CHLORIDE 0.9% 100 ML IVPB SCH ×2 (05:47→18:12)
[2020-09-01 07:13] LABS: Anisocytosis Slight; Basophils # (A) 0.1 k/uL (0-0.2); Basophils % (A) 1 %; Eosinophils # (A) 0.2 k/uL (0-0.7); Eosinophils % (A) 2 %; HCT 32.2 % (34.0-46.0); HGB 10.4 gm/dL (11.4-16.0); Hypochromasia Slight; Lymphocytes # (A) 1.4 k/uL (1.0-4.8); Lymphocytes % (A) 17 %; MCH 30.9 pg (25.0-35.0); MCHC 32.4 g/dL (31.0-37.0); MCV 95.4 fL (80.0-100.0); Macrocytosis Slight; Mean Platelet Volume 7.5; Monocytes # (A) 0.6 k/uL (0-1.0); Monocytes % (A) 7 %; Neutrophils % (A) 71 %; Platelet Count 317 k/uL (150-450); RBC 3.38 m/uL (3.80-5.40); RDW 17.5 % (11.5-15.5); WBC 8.5 k/uL (3.8-10.6)
[2020-09-01 07:29] LABS: African American GFR (CKD) >90 (>60 ml/min/1.73 sqM); Anion Gap 5 mmol/L; Blood Urea Nitrogen 16 mg/dL (7-17); Calcium 8.6 mg/dL (8.4-10.2); Carbon Dioxide 27 mmol/L (22-30); Chloride 104 mmol/L (98-107); Glucose 87 mg/dL (74-99); Non-African American GFR(CKD) 78 (>60 ml/min/1.73 sqM); Potassium 3.8 mmol/L (3.5-5.1); Sodium 136 mmol/L (137-145)
[2020-09-01] MEDS: MORPHINE SULFATE 4 MG/ML SYRINGE IV PRN (08:30)
[2020-09-01] MEDS: BUDESONIDE 0.5 MG/2 ML NEBU INHALATION SCH ×2 (08:42→20:58)
[2020-09-01] MEDS: PANTOPRAZOLE 40 MG/10 ML VIAL IV SCH (09:43)
[2020-09-01] MEDS: SODIUM CHLORIDE 0.9% 1,000 ML IV SCH (09:44)
[2020-09-01] MEDS: GABAPENTIN 300 MG CAP PO SCH ×2 (09:45→21:21)
[2020-09-01] MEDS: SUCRALFATE 1 GM TAB PO SCH (09:45)
[2020-09-01] MEDS: METOPROLOL TARTRATE 25 MG TAB PO SCH ×3 (09:45→21:20)
[2020-09-01] MEDS: ISOSORBIDE MONONITRATE ER 60 MG TAB.ER.24H PO SCH (09:45)
[2020-09-01 11:13] LABS: INR 2.4 (<1.2)
[2020-09-01] MEDS ORDERED: WARFARIN 5 MG TAB PO SCH (18:00)
[2020-09-01] MEDS: LATANOPROST 0.005% OPHTH DROPS 2.5 ML BTL BOTH EYES SCH (21:00)
[2020-09-01] MEDS: DULoxetine HCL 60 MG CAPSULE.DR PO SCH (21:20)
[2020-09-01] MEDS: MONTELUKAST 10 MG TAB PO SCH (21:21)
--- NOTE | 2020-09-01 22:28 | P.PN ---
Subjective 85-year-old female, history of COPD/asthma, hypertension, hyperlipidemia and DVT; presenting to the emergency Department with complaints of abdominal discomfort. Onset of symptoms was a couple of days ago. Patient has lower abdominal discomfort similar to previous diverticulitis. No nausea vomiting. No change in appetite. Patient has had some mixed constipation or diarrhea. No fevers. Discomfort is moderate. Patient was worked up in ED with a CT of the abdomen which was positive for acute diverticulitis; lab work was done and revealed the WBC of 10.5, hemoglobin of 10.9 and platelet count of 348; chemical profile so shows sodium of 135, potassium 4.0, BUN of 21 with creatinine of 0.7 to 09/01/2020 Patient still complaining from left lower quadrant pain and tenderness, no rebound tenderness, she says her pain is improving slightly. She is hemodynamically stable and left showing no leukocytosis and patient is already covered with Zosyn. We going to consult surgical team Also patient has a wound in her left anterior cowart with some purulent discharge. Patient is already covered with Zosyn and normal saline at 75 mL/h. We will send for wound culture and ask for a wound consult The patient is on warfarin for her history of A. fib and her INR therapeutic at 2.4 Objective - Vital Signs Vital signs: Vital Signs Temp 97.8 F 09/01/20 01:50 Pulse 78 09/01/20 09:10 Resp 16 09/01/20 09:10 BP 122/74 09/01/20 09:10 Pulse Ox 97 09/01/20 09:10 Intake & Output 08/31/20 09/01/20 09/01/20 18:59 06:59 18:59 Weight 90.718 kg Other: Voiding Method Toilet # Voids 1 1 1 - Exam GENERAL: The patient is alert and oriented x3, not in any acute distress. Well developed, well nourished. HEENT: Pupils are round and equally reacting to light. EOMI. No scleral icterus. No conjunctival pallor. Normocephalic, atraumatic. No pharyngeal erythema. No thyromegaly. CARDIOVASCULAR: S1 and S2 present. No murmurs, rubs, or gallops. PULMONARY: Chest is clear to auscultation, no wheezing or crackles. -ABDOMEN: Soft, LLQ tenderness, no rebound tenderness ended, normoactive bowel sounds. No palpable organomegaly. MUSCULOSKELETAL: No joint swelling or deformity. -EXTREMITIES: No cyanosis, clubbing, or pedal edema. Left leg superficial ulcer about 2 inches in diameter and 1 inch in width. With some yellow purulent discharge at the base and no surrounding cellulitis NEUROLOGICAL: Gross neurological examination did not reveal any focal deficits. SKIN: No rashes. no petechiae. - Labs CBC & Chem 7: 09/01/20 06:12 09/01/20 06:12 Labs: Abnormal Lab Results - Last 24 Hours (Table) 08/31/20 08/31/20 08/31/20 Range/Units 13:11 13:11 13:11 RBC 3.66 L (3.80-5.40) m/uL Hgb 10.9 L (11.4-16.0) gm/dL Hct (34.0-46.0) % RDW 18.0 H (11.5-15.5) % Neutrophils # 8.3 H (1.3-7.7) k/uL PT 22.9 H (9.0-12.0) sec INR 2.4 H (<1.2) APTT 38.7 H (22.0-30.0) sec Sodium (137-145) mmol/L BUN (7-17) mg/dL AST (14-36) U/L C-Reactive Protein (<1.0) mg/dL Total Protein (6.3-8.2) g/dL Albumin (3.5-5.0) g/dL Urine Protein Trace H (Negative) Urine Blood Small H (Negative) Ur Leukocyte Esterase Trace H (Negative) Urine Bacteria Rare H (None) /hpf Urine Mucus Rare H (None) /hpf 08/31/20 09/01/20 09/01/20 Range/Units 13:11 06:12 06:12 RBC 3.38 L (3.80-5.40) m/uL Hgb 10.4 L (11.4-16.0) gm/dL Hct 32.2 L (34.0-46.0) % RDW 17.5 H (11.5-15.5) % Neutrophils # (1.3-7.7) k/uL PT (9.0-12.0) sec INR (<1.2) APTT (22.0-30.0) sec Sodium 135 L 136 L (137-145) mmol/L BUN 21 H (7-17) mg/dL AST 40 H (14-36) U/L C-Reactive Protein 8.0 H (<1.0) mg/dL Total Protein 6.1 L (6.3-8.2) g/dL Albumin 3.4 L (3.5-5.0) g/dL Urine Protein (Negative) Urine Blood (Negative) Ur Leukocyte Esterase (Negative) Urine Bacteria (None) /hpf Urine Mucus (None) /hpf Assessment and Plan Assessment: 1. Acute diverticulitis - Patient is started on IV Zosyn at 3.375 g IV every 12 hours; IV fluid hydration with normal saline at a rate of 75 mL an hour - Pain controlled with morphine for gram IV every 4 hours when necessary - Patient is to start on Protonix 40 mg daily - Surgical team consult 2. Anemia; not short of baseline hemoglobin; we will monitor CBC closely; stool occult blood; iron studies 3. Mild renal injury/dehydration; IV fluid hydration with normal saline as indicated above; monitor strict SADIE's, daily weights, renal function and electrolytes; avoid nephrotoxins and hypotension 4. Hyperlipidemia; Lipitor 40 mg by mouth daily at bedtime 5. Hypertension; continue with home dose of metoprolol 25 mg 3 times a day, Imdur 60 mg daily; hold hydrochlorothiazide 6. COPD/asthma; continue with home inhaler regimen 7. Depression; Cymbalta 60 mg by mouth daily at bedtime 8. Left leg wound, sent for wound culture, wound consult DVT prophylaxis; SCDs/subcu heparin CODE STATUS; full code
[2020-09-02] MEDS: PIPERACILLIN-TAZOBACTAM 3.375 GM in SODIUM CHLORIDE 0.9% 100 ML IVPB SCH ×2 (05:43→18:09)
[2020-09-02 07:55] LABS: Anisocytosis Slight; Basophils % (A) 0 %; Eosinophils # (A) 0.2 k/uL (0-0.7); Eosinophils % (A) 3 %; HCT 35.5 % (34.0-46.0); HGB 11.1 gm/dL (11.4-16.0); Hypochromasia Slight; Lymphocytes # (A) 1.4 k/uL (1.0-4.8); Lymphocytes % (A) 14 %; MCH 30.1 pg (25.0-35.0); MCHC 31.4 g/dL (31.0-37.0); Macrocytosis Slight; Mean Platelet Volume 7.5; Monocytes # (A) 0.7 k/uL (0-1.0); Monocytes % (A) 7 %; Neutrophils # (A) 7.3 k/uL (1.3-7.7); Neutrophils % (A) 74 %; Platelet Count 398 k/uL (150-450); RDW 17.9 % (11.5-15.5); WBC 9.8 k/uL (3.8-10.6)
[2020-09-02 08:12] LABS: INR 2.9 (<1.2)
[2020-09-02 08:29] LABS: African American GFR (CKD) >90 (>60 ml/min/1.73 sqM); Anion Gap 6 mmol/L; Blood Urea Nitrogen 10 mg/dL (7-17); Calcium 8.5 mg/dL (8.4-10.2); Carbon Dioxide 28 mmol/L (22-30); Chloride 103 mmol/L (98-107); Glucose 105 mg/dL (74-99); Magnesium 1.2 mg/dL (1.6-2.3); Non-African American GFR(CKD) 81 (>60 ml/min/1.73 sqM); Potassium 3.6 mmol/L (3.5-5.1); Sodium 137 mmol/L (137-145)
[2020-09-02] MEDS: MORPHINE SULFATE 4 MG/ML SYRINGE IV PRN ×2 (08:35→13:57)
[2020-09-02] MEDS: PANTOPRAZOLE 40 MG/10 ML VIAL IV SCH (08:36)
[2020-09-02] MEDS: GABAPENTIN 300 MG CAP PO SCH ×2 (08:36→20:18)
[2020-09-02] MEDS: METOPROLOL TARTRATE 25 MG TAB PO SCH ×3 (08:37→21:14)
[2020-09-02] MEDS: ISOSORBIDE MONONITRATE ER 60 MG TAB.ER.24H PO SCH (08:37)
[2020-09-02] MEDS: SUCRALFATE 1 GM TAB PO SCH (08:37)
[2020-09-02] MEDS: BUDESONIDE 0.5 MG/2 ML NEBU INHALATION SCH ×2 (09:24→19:38)
[2020-09-02 10:03] VITALS: BMI 32.3
--- NOTE | 2020-09-02 10:29 | P.CONS ---
History of Present Illness - Reason for Consult Consult date: 09/02/20 wound care - History of Present Illness This is an 85-year-old pleasant female being seen on [facility] for nonhealing ulceration to the left anterior lower extremity. Patient states that the ulceration started last Tuesday. She ran into the edge of her hospital bed at home creating a ulceration. Patient states that she has only put on triple antibiotic ointment and a dressing to the site. Ulceration measures approximately 3 x 1.5 x 0.1 cm with significant amount of slough throughout the wound bed and no granulation seen. Patient has minimal serous drainage. Noted to have ecchymosis to the periwound. Patient's past medical history significant for asthma, COPD, DVT, hyperlipidemia, hypertension, DVT to the left upper arm, and a former smoker quit in 1989. Review Of Systems: Constitutional: No fever, no chills, no night sweats. No weight change. No weakness, fatigue or lethargy. No daytime sleepiness. Integumentary:reports wounds, no lesions. No rash or pruritus. No unusual bruising. No change in hair or nails. Physical exam: General Appearance: Alert, cooperative, no distress, appears stated age. Skin: See HPI all other Skin color, texture, tugor normal, no rashes or lesions. Neurologic: Alert oriented x3 Assessment: 1. Nonhealing nonpressure ulcerations that layer exposure to the left anterior lower extremity 2. Laceration resulting from trauma no foreign body Plan: 1. Apply honey alginate, saline moistened gauze, dry gauze, rolled gauze secured paper tape. Change Tuesday. Patient is more than welcome to follow-up in the wound care center for continued wound treatment we will be happy to see her. Thank you for the consultation any questions please contact the wound care center DNP note has been reviewed and discussed with Dr. Rucker and the impression and plan of care has been directed as dictated. Past Medical History Past Medical History: Asthma, COPD, Deep Vein Thrombosis (DVT), Hyperlipidemia, Hypertension, Osteoarthritis (OA), Rheumatoid Arthritis (RA), Skin Disorder Additional Past Medical History / Comment(s): Hx. gout, DVT L upper arm, dermatitis, bilateral glaucoma, bradycardia- pacemaker, degenerative disc disease, cervical and back pain History of Any Multi-Drug Resistant Organisms: None Reported Past Surgical History: Adenoidectomy, Appendectomy, Cholecystectomy, Hernia Repair, Orthopedic Surgery, Pacemaker, Tonsillectomy, Tubal Ligation Additional Past Surgical History / Comment(s): Hx throat nodule removed, mole left eyelid, D&C, bilat cataracts removed . RIGHT KNEE REPLACEMENT X 2., shoulder surgeries , hiatal hernia repair, I&D L inguinal abscess, right wrist surgery Past Anesthesia/Blood Transfusion Reactions: No Reported Reaction Type of Cardiac Device: Permanent Pacemaker Device Placement Date:: October 2012 Past Psychological History: No Psychological Hx Reported Smoking Status: Former smoker Past Alcohol Use History: None Reported Past Drug Use History: None Reported - Past Family History Father Additional Family Medical History / Comment(s): Father pulmonary fibrosis Mother Family Medical History: Cancer Sister(s) Additional Family Medical History / Comment(s): melanoma Medications and Allergies Home Medications Medication Instructions Recorded Confirmed Type Bimatoprost [Lumigan .01% Ophth 1 drop BOTH EYES HS 11/07/13 08/31/20 History Soln] Isosorbide Mononitrate [Imdur] 60 mg PO DAILY 11/07/13 08/31/20 History Montelukast [Singulair] 10 mg PO HS 11/07/13 08/31/20 History allopurinoL [Zyloprim] 100 mg PO BID 07/09/14 08/31/20 History Budesonide [Pulmicort] 0.5 mg INHALATION RT-BID 03/29/16 08/31/20 History Omeprazole 20 mg PO BID 03/29/16 08/31/20 History DULoxetine HCL [Cymbalta] 60 mg PO HS 11/22/18 08/31/20 History Denosumab [Prolia] 60 mg SQ Q180D 02/10/20 08/31/20 History Folic Acid 1 mg PO DAILY 02/10/20 08/31/20 History Multivitamins, Thera [Multivitamin 1 tab PO DAILY 02/10/20 08/31/20 History (formulary)] Nitroglycerin Sl Tabs [Nitrostat] 0.4 mg SUBLINGUAL Q5M PRN 02/10/20 08/31/20 History Warfarin [Coumadin] 2.5 mg PO FR@1800 03/07/20 08/31/20 History Famotidine [Pepcid] 20 mg PO DAILY tab 12/08/20 05/30/21 Rx Gabapentin [Neurontin] 600 mg PO BID #6 tab 03/11/20 08/31/20 Rx Atorvastatin [Lipitor] 20 mg PO HS 08/31/20 08/31/20 History Calcium Carbonate [Calcium] 600 mg PO DAILY 08/31/20 08/31/20 History Cholecalciferol [Vitamin D3 (25 25 mcg PO DAILY 08/31/20 08/31/20 History Mcg = 1000 Iu)] Metoprolol Tartrate [Lopressor] 25 mg PO TID 08/31/20 08/31/20 History Sucralfate [Carafate] 1 gm PO DAILY 08/31/20 08/31/20 History Warfarin [Coumadin] 5 mg PO SUMOTUWETHSA@1800 08/31/20 08/31/20 History hydroCHLOROthiazide 25 mg PO DAILY 08/31/20 08/31/20 History metHOTREXate sodium [Methotrexate] 25 mg PO FR 08/31/20 08/31/20 History Allergies Allergy/AdvReac Type Severity Reaction Status Date / Time LUNA Inhibitors AdvReac Cough Verified 08/31/20 17:50 tape Allergy Unknown Uncoded 08/31/20 17:50 Physical Exam Vitals: Vital Signs Temp Pulse Pulse Resp BP Pulse Ox 09/02/20 09:38 85 09/02/20 09:25 89 09/02/20 08:00 97.9 F 94 18 124/58 98 09/02/20 00:52 97.7 F 98 20 127/66 96 09/01/20 21:09 82 09/01/20 20:58 80 09/01/20 19:20 97.8 F 73 18 148/78 96 09/01/20 16:35 97.9 F 65 16 138/70 97 Intake and Output 09/01/20 09/02/20 09/02/20 22:59 06:59 14:59 Other: Voiding Method Toilet # Voids 1 1 Weight 90.718 kg Results CBC & Chem 7: 09/02/20 07:36 09/02/20 07:36 Labs: Abnormal Lab Results - Last 24 Hours (Table) 09/01/20 09/02/20 09/02/20 Range/Units 10:44 07:36 07:36 RBC 3.70 L (3.80-5.40) m/uL Hgb 11.1 L (11.4-16.0) gm/dL RDW 17.9 H (11.5-15.5) % PT 23.0 H 28.0 H (9.0-12.0) sec INR 2.4 H 2.9 H (<1.2) Glucose (74-99) mg/dL Magnesium (1.6-2.3) mg/dL 09/02/20 Range/Units 07:36 RBC (3.80-5.40) m/uL Hgb (11.4-16.0) gm/dL RDW (11.5-15.5) % PT (9.0-12.0) sec INR (<1.2) Glucose 105 H (74-99) mg/dL Magnesium 1.2 L (1.6-2.3) mg/dL Microbiology - Last 24 Hours (Table) 09/01/20 12:25 Gram Stain - Preliminary Leg - Left Wound Culture - Preliminary Presumptive Staph aureus 09/01/20 12:25 Anaerobic Culture - Preliminary Leg - Left Assessment and Plan (1) Nonhealing ulcer of left lower extremity with fat layer exposed Current Visit: Yes Status: Acute Code(s): L97.922 - NON-PRS CHR ULC UNSP PRT OF L LOW LEG W FAT LAYER EXPOSED SNOMED Code(s): 25625162 (2) Laceration of left lower leg without foreign body Current Visit: Yes Status: Acute Code(s): S81.812A - LACERATION WITHOUT FOREIGN BODY, LEFT LOWER LEG, INIT ENCNTR SNOMED Code(s): 476199211
--- NOTE | 2020-09-02 11:02 | P.GSCN ---
<Avani Travis - Last Filed: 09/02/20 10:49> History of Present Illness Consult date: 09/02/20 History of present illness: CHIEF COMPLAINT: Abdominal pain HISTORY OF PRESENT ILLNESS: This is a 85-year-old female with a known past medical history of diverticulitis, atrial fibrillation in which she is anticoagulated with Coumadin, pacemaker, hypertension and hyperlipidemia. She has a past surgical history of repair of large hiatal hernia with mesh, appendectomy and cholecystectomy. Patient presents to the hospital with complaints of mid lower abdominal pain and left lower quadrant abdominal pain that started on Tuesday. Eyes she reports the pain across the lower abdomen and is now located in the left lower quadrant. Her pain was severe she rated it 10 out of 10. She felt that this was similar to her prior diverticulitis flareup. This is her second episode of diverticulitis in which she recently required hospitalization. She denies any fever chills or sweats. Denies any nausea or vomiting. Denies any blood in her stools. She did have 2 bowel movements this morning 1 was normal the other loose. Her pain has greatly improved since being hospitalized. However, she does report pain after having the bowel movements this morning. She is currently on clear liquid diet. She had a computed tomography scan of the abdomen and pelvis showing sigmoid diverticulitis. Mild free fluid in the pelvis. There is clearing of the diverticulitis of the proximal sigmoid colon compared to old exam. Diverticulitis in the mid sigmoid colon is new compared to old exam. Patient reports that she is due for a colonoscopy but was unable to have it completed due to her having Covid in March. PAST MEDICAL HISTORY: See list. PAST SURGICAL HISTORY: See list. MEDICATIONS: See list. ALLERGIES: See list. SOCIAL HISTORY: No illicit drug use. REVIEW OF SYSTEMS: CONSTITUTIONAL: Denies fever or chills. HEENT: Denies blurred vision, vision changes, or eye pain. Denies hemoptysis CARDIOVASCULAR: Denies chest pain or pressure. RESPIRATORY: No shortness of breath. GASTROINTESTINAL: See HPI for pertinent findings HEMATOLOGIC: Denies bleeding disorders. GENITOURINARY: Denies any blood in urine or increased urinary frequency. SKIN: Denies pruitis. Denies rash. PHYSICAL EXAM: VITAL SIGNS: Reviewed GENERAL: Well-developed in no acute distress. HEENT: No sclera icterus. Extraocular movements grossly intact. Moist buccal mucosa. Head is atraumatic, normocephalic. No nasal drainage. ABDOMEN: Soft. Nondistended. Tenderness with palpation of the left lower quad rant NEUROLOGIC: Alert and oriented. Cranial nerves II through XII grossly intact. LABORATORY DATA: WBC 9.8 hemoglobin 11.1 platelets 398 INR 2.9 sodium 137 potassium 3.6 BUN 10 creatinine 0.68 magnesium 1.2 IMAGING: computed tomography scan of the abdomen and pelvis showing sigmoid diverticulit is. Mild free fluid in the pelvis. There is clearing of the diverticulitis of the proximal sigmoid colon compared to old exam. Diverticulitis in the mid sigmoid colon is new compared to old exam. ASSESSMENT: 1. Acute diverticulitis of the mid sigmoid colon 2. Prior diverticulitis infection in February 3. Atrial fibrillation anticoagulated with Coumadin 4. Hypomagnesemia PLAN: -Continue supportive care -Continue IV antibiotics -Continue pain medication as needed -Continue clear liquid diet -Replace magnesium -Further recommendations forthcoming per surgeon Thank you for this consultation Physician [facility] Administrator note has been reviewed by physician. Signing provider agrees with the documented findings, assessment, and plan of care. Past Medical History Past Medical History: Asthma, COPD, Deep Vein Thrombosis (DVT), Hyperlipidemia, Hypertension, Osteoarthritis (OA), Rheumatoid Arthritis (RA), Skin Disorder Additional Past Medical History / Comment(s): Hx. gout, DVT L upper arm, dermatitis, bilateral glaucoma, bradycardia- pacemaker, degenerative disc disease, cervical and back pain History of Any Multi-Drug Resistant Organisms: None Reported Past Surgical History: Adenoidectomy, Appendectomy, Cholecystectomy, Hernia Repair, Orthopedic Surgery, Pacemaker, Tonsillectomy, Tubal Ligation Additional Past Surgical History / Comment(s): Hx throat nodule removed, mole left eyelid, D&C, bilat cataracts removed . RIGHT KNEE REPLACEMENT X 2., shoulder surgeries , hiatal hernia repair, I&D L inguinal abscess, right wrist surgery Past Anesthesia/Blood Transfusion Reactions: No Reported Reaction Type of Cardiac Device: Permanent Pacemaker Device Placement Date:: October 2012 Past Psychological History: No Psychological Hx Reported Smoking Status: Former smoker Past Alcohol Use History: None Reported Past Drug Use History: None Reported - Past Family History Father Additional Family Medical History / Comment(s): Father pulmonary fibrosis Mother Family Medical History: Cancer Sister(s) Additional Family Medical History / Comment(s): melanoma Medications and Allergies Home Medications Medication Instructions Recorded Confirmed Type Bimatoprost [Lumigan .01% Ophth 1 drop BOTH EYES HS 11/07/13 08/31/20 History Soln] Isosorbide Mononitrate [Imdur] 60 mg PO DAILY 11/07/13 08/31/20 History Montelukast [Singulair] 10 mg PO HS 11/07/13 08/31/20 History allopurinoL [Zyloprim] 100 mg PO BID 07/09/14 08/31/20 History Budesonide [Pulmicort] 0.5 mg INHALATION RT-BID 03/29/16 08/31/20 History Omeprazole 20 mg PO BID 03/29/16 08/31/20 History DULoxetine HCL [Cymbalta] 60 mg PO HS 11/22/18 08/31/20 History Denosumab [Prolia] 60 mg SQ Q180D 02/10/20 08/31/20 History Folic Acid 1 mg PO DAILY 02/10/20 08/31/20 History Multivitamins, Thera [Multivitamin 1 tab PO DAILY 02/10/20 08/31/20 History (formulary)] Nitroglycerin Sl Tabs [Nitrostat] 0.4 mg SUBLINGUAL Q5M PRN 02/10/20 08/31/20 History Warfarin [Coumadin] 2.5 mg PO FR@1800 03/07/20 08/31/20 History Famotidine [Pepcid] 20 mg PO DAILY tab 03/11/20 08/31/20 Rx Gabapentin [Neurontin] 600 mg PO BID #6 tab 03/11/20 08/31/20 Rx Atorvastatin [Lipitor] 20 mg PO HS 08/31/20 08/31/20 History Calcium Carbonate [Calcium] 600 mg PO DAILY 08/31/20 08/31/20 History Cholecalciferol [Vitamin D3 (25 25 mcg PO DAILY 08/31/20 08/31/20 History Mcg = 1000 Iu)] Metoprolol Tartrate [Lopressor] 25 mg PO TID 08/31/20 08/31/20 History Sucralfate [Carafate] 1 gm PO DAILY 08/31/20 08/31/20 History Warfarin [Coumadin] 5 mg PO SUMOTUWETHSA@1800 08/31/20 08/31/20 History hydroCHLOROthiazide 25 mg PO DAILY 08/31/20 08/31/20 History metHOTREXate sodium [Methotrexate] 25 mg PO FR 08/31/20 08/31/20 History Allergies Allergy/AdvReac Type Severity Reaction Status Date / Time LUNA Inhibitors AdvReac Cough Verified 08/31/20 17:50 tape Allergy Unknown Uncoded 08/31/20 17:50 Surgical - Exam Vital Signs Temp Pulse Resp BP Pulse Ox 98.6 F 92 16 111/70 97 08/31/20 12:31 08/31/20 12:31 08/31/20 12:31 08/31/20 12:31 08/31/20 12:31 Results - Labs 09/02/20 07:36 09/02/20 07:36 Abnormal Lab Results - Last 24 Hours (Table) 09/01/20 09/02/20 09/02/20 Range/Units 10:44 07:36 07:36 RBC 3.70 L (3.80-5.40) m/uL Hgb 11.1 L (11.4-16.0) gm/dL RDW 17.9 H (11.5-15.5) % PT 23.0 H 28.0 H (9.0-12.0) sec INR 2.4 H 2.9 H (<1.2) Glucose (74-99) mg/dL Magnesium (1.6-2.3) mg/dL 09/02/20 Range/Units 07:36 RBC (3.80-5.40) m/uL Hgb (11.4-16.0) gm/dL RDW (11.5-15.5) % PT (9.0-12.0) sec INR (<1.2) Glucose 105 H (74-99) mg/dL Magnesium 1.2 L (1.6-2.3) mg/dL Microbiology - Last 24 Hours (Table) 09/01/20 12:25 Gram Stain - Preliminary Leg - Left Wound Culture - Preliminary Presumptive Staph aureus 09/01/20 12:25 Anaerobic Culture - Preliminary Leg - Left Diabetes panel 09/02/20 Range/Units 07:36 Sodium 137 (137-145) mmol/L Potassium 3.6 (3.5-5.1) mmol/L Chloride 103 (98-107) mmol/L Carbon Dioxide 28 (22-30) mmol/L BUN 10 (7-17) mg/dL Creatinine 0.68 (0.52-1.04) mg/dL Glucose 105 H (74-99) mg/dL Calcium 8.5 (8.4-10.2) mg/dL Calcium panel 09/02/20 Range/Units 07:36 Calcium 8.5 (8.4-10.2) mg/dL Pituitary panel 09/02/20 Range/Units 07:36 Sodium 137 (137-145) mmol/L Potassium 3.6 (3.5-5.1) mmol/L Chloride 103 (98-107) mmol/L Carbon Dioxide 28 (22-30) mmol/L BUN 10 (7-17) mg/dL Creatinine 0.68 (0.52-1.04) mg/dL Glucose 105 H (74-99) mg/dL Calcium 8.5 (8.4-10.2) mg/dL Adrenal panel 09/02/20 Range/Units 07:36 Sodium 137 (137-145) mmol/L Potassium 3.6 (3.5-5.1) mmol/L Chloride 103 (98-107) mmol/L Carbon Dioxide 28 (22-30) mmol/L BUN 10 (7-17) mg/dL Creatinine 0.68 (0.52-1.04) mg/dL Glucose 105 H (74-99) mg/dL Calcium 8.5 (8.4-10.2) mg/dL <Edgardo Mancuso - Last Filed: 09/02/20 12:19> History of Present Illness History of present illness: As above. Patient with 2-3 day history of lower quadrant abdominal pain. CAT scan reviewed. Mild diverticulitis noted. Continue IV antibiotics. Increase diet to full liquids. Will follow. Surgical - Exam Vital Signs Temp Pulse Resp BP Pulse Ox 98.6 F 92 16 111/70 97 08/31/20 12:31 08/31/20 12:31 08/31/20 12:31 08/31/20 12:31 08/31/20 12:31 Results - Labs 09/02/20 07:36 09/02/20 07:36 Abnormal Lab Results - Last 24 Hours (Table) 09/02/20 09/02/20 09/02/20 Range/Units 07:36 07:36 07:36 RBC 3.70 L (3.80-5.40) m/uL Hgb 11.1 L (11.4-16.0) gm/dL RDW 17.9 H (11.5-15.5) % PT 28.0 H (9.0-12.0) sec INR 2.9 H (<1.2) Glucose 105 H (74-99) mg/dL Magnesium 1.2 L (1.6-2.3) mg/dL Microbiology - Last 24 Hours (Table) 09/01/20 12:25 Gram Stain - Preliminary Leg - Left Wound Culture - Preliminary Presumptive Staph aureus 09/01/20 12:25 Anaerobic Culture - Preliminary Leg - Left Diabetes panel 09/02/20 Range/Units 07:36 Sodium 137 (137-145) mmol/L Potassium 3.6 (3.5-5.1) mmol/L Chloride 103 (98-107) mmol/L Carbon Dioxide 28 (22-30) mmol/L BUN 10 (7-17) mg/dL Creatinine 0.68 (0.52-1.04) mg/dL Glucose 105 H (74-99) mg/dL Calcium 8.5 (8.4-10.2) mg/dL Calcium panel 09/02/20 Range/Units 07:36 Calcium 8.5 (8.4-10.2) mg/dL Pituitary panel 09/02/20 Range/Units 07:36 Sodium 137 (137-145) mmol/L Potassium 3.6 (3.5-5.1) mmol/L Chloride 103 (98-107) mmol/L Carbon Dioxide 28 (22-30) mmol/L BUN 10 (7-17) mg/dL Creatinine 0.68 (0.52-1.04) mg/dL Glucose 105 H (74-99) mg/dL Calcium 8.5 (8.4-10.2) mg/dL Adrenal panel 09/02/20 Range/Units 07:36 Sodium 137 (137-145) mmol/L Potassium 3.6 (3.5-5.1) mmol/L Chloride 103 (98-107) mmol/L Carbon Dioxide 28 (22-30) mmol/L BUN 10 (7-17) mg/dL Creatinine 0.68 (0.52-1.04) mg/dL Glucose 105 H (74-99) mg/dL Calcium 8.5 (8.4-10.2) mg/dL
[2020-09-02] MEDS: SODIUM CHLORIDE 0.9% 1,000 ML IV SCH ×2 (14:54→21:07)
[2020-09-02] MEDS: MAGNESIUM SULFATE-D5W PMX 1 GM in DEXTROSE/WATER 1 100ML.BAG IVPB SCH ×2 (14:57→16:04)
[2020-09-02] MEDS ORDERED: WARFARIN 2 MG TAB PO ONE (18:00)
[2020-09-02] MEDS ORDERED: POTASSIUM CHLORIDE ER 20 MEQ TAB.ER PO STA (20:16)
[2020-09-02] MEDS: DULoxetine HCL 60 MG CAPSULE.DR PO SCH (20:18)
[2020-09-02] MEDS: LATANOPROST 0.005% OPHTH DROPS 2.5 ML BTL BOTH EYES SCH (20:18)
[2020-09-02] MEDS: MONTELUKAST 10 MG TAB PO SCH (20:18)
[2020-09-02] MEDS ORDERED: Magnesium Replacement Protocol 1 EACH MISC MISCELLANE PRN (20:20)
[2020-09-02] MEDS ORDERED: Potassium Replacement Protocol 1 EACH MISC MISCELLANE PRN (20:20)
--- NOTE | 2020-09-02 20:21 | P.PN ---
Subjective 85-year-old female, history of COPD/asthma, hypertension, hyperlipidemia and DVT; presenting to the emergency Department with complaints of abdominal discomfort. Onset of symptoms was a couple of days ago. Patient has lower abdominal discomfort similar to previous diverticulitis. No nausea vomiting. No change in appetite. Patient has had some mixed constipation or diarrhea. No fevers. Discomfort is moderate. Patient was worked up in ED with a CT of the abdomen which was positive for acute diverticulitis; lab work was done and revealed the WBC of 10.5, hemoglobin of 10.9 and platelet count of 348; chemical profile so shows sodium of 135, potassium 4.0, BUN of 21 with creatinine of 0.7 to 09/01/2020 Patient still complaining from left lower quadrant pain and tenderness, no rebound tenderness, she says her pain is improving slightly. She is hemodynamically stable and left showing no leukocytosis and patient is already covered with Zosyn. We going to consult surgical team Also patient has a wound in her left anterior cowart with some purulent discharge. Patient is already covered with Zosyn and normal saline at 75 mL/h. We will send for wound culture and ask for a wound consult The patient is on warfarin for her history of A. fib and her INR therapeutic at 2.4 09/02/2020 Patient improving left lower quadrant abdominal pain down from 7/10 down to 0/10 TODAY. NO NAUSEA VOMITING. PATIENT HAD 2 BOWEL MOVEMENTS ONE OF THEM IS FORMED AND THE SECOND ONE IS LOOSE. pt is with left leg wound growing staph, rule out MRSA react patient is currently on Zosyn for her diverticulitis. Consult appreciated. Surgery team recommended conservative treatment Patient currently is maintained on Zosyn and normal sinus at 75 and warfarin pharmacy to dose with INR today is 2.9 Objective - Vital Signs Vital signs: Vital Signs Temp 98.1 F 09/02/20 19:37 Pulse 82 09/02/20 19:48 Resp 18 09/02/20 19:37 BP 135/72 09/02/20 19:37 Pulse Ox 97 09/02/20 19:37 Intake & Output 09/02/20 09/02/20 09/03/20 06:59 18:59 06:59 Weight 90.718 kg Other: Voiding Method Toilet Toilet # Voids 1 1 1 # Bowel Movements 1 - Exam GENERAL: The patient is alert and oriented x3, not in any acute distress. Well developed, well nourished. HEENT: Pupils are round and equally reacting to light. EOMI. No scleral icterus. No conjunctival pallor. Normocephalic, atraumatic. No pharyngeal erythema. No thyromegaly. CARDIOVASCULAR: S1 and S2 present. No murmurs, rubs, or gallops. PULMONARY: Chest is clear to auscultation, no wheezing or crackles. -ABDOMEN: Soft, LLQ tenderness, no rebound tenderness ended, normoactive bowel sounds. No palpable organomegaly. MUSCULOSKELETAL: No joint swelling or deformity. -EXTREMITIES: No cyanosis, clubbing, or pedal edema. Left leg superficial ulcer about 2 inches in diameter and 1 inch in width. With some yellow purulent discharge at the base and no surrounding cellulitis NEUROLOGICAL: Gross neurological examination did not reveal any focal deficits. SKIN: No rashes. no petechiae. - Labs CBC & Chem 7: 09/02/20 07:36 09/02/20 07:36 Labs: Abnormal Lab Results - Last 24 Hours (Table) 09/02/20 09/02/20 09/02/20 Range/Units 07:36 07:36 07:36 RBC 3.70 L (3.80-5.40) m/uL Hgb 11.1 L (11.4-16.0) gm/dL RDW 17.9 H (11.5-15.5) % PT 28.0 H (9.0-12.0) sec INR 2.9 H (<1.2) Glucose 105 H (74-99) mg/dL Magnesium 1.2 L (1.6-2.3) mg/dL Microbiology - Last 24 Hours (Table) 09/01/20 12:25 Gram Stain - Preliminary Leg - Left Wound Culture - Preliminary Presumptive Staph aureus 09/01/20 12:25 Anaerobic Culture - Preliminary Leg - Left Assessment and Plan Assessment: 1. Acute diverticulitis - Patient is started on IV Zosyn at 3.375 g IV every 12 hours; IV fluid hydration with normal saline at a rate of 75 mL an hour - Pain controlled with morphine for gram IV every 4 hours when necessary - Patient is to start on Protonix 40 mg daily - Surgical team consult 2. Anemia; not short of baseline hemoglobin; we will monitor CBC closely; stool occult blood; iron studies 3. Mild renal injury/dehydration; IV fluid hydration with normal saline as indicated above; monitor strict SADIE's, daily weights, renal function and electrolytes; avoid nephrotoxins and hypotension 4. Hyperlipidemia; Lipitor 40 mg by mouth daily at bedtime 5. Hypertension; continue with home dose of metoprolol 25 mg 3 times a day, Imdur 60 mg daily; hold hydrochlorothiazide 6. COPD/asthma; continue with home inhaler regimen 7. Depression; Cymbalta 60 mg by mouth daily at bedtime 8. Left leg wound, sent for wound culture, wound consult DVT prophylaxis; SCDs/subcu heparin CODE STATUS; full code
[2020-09-02] MEDS ORDERED: MAGNESIUM SULFATE-D5W PMX 1 GM in DEXTROSE/WATER 1 100ML.BAG IVPB ONE (21:00)
[2020-09-02] MEDS: AMPICILLIN-SULBACTAM 3 GM in SODIUM CHLORIDE 0.9% 100 ML IVPB SCH (23:20)
[2020-09-03] MEDS: AMPICILLIN-SULBACTAM 3 GM in SODIUM CHLORIDE 0.9% 100 ML IVPB SCH ×4 (05:13→23:38)
--- NOTE | 2020-09-03 05:22 | CONS ---
CONSULTATION DATE OF SERVICE: 09/02/2020 REASON FOR CONSULTATION: 1. Left leg wound positive culture with Staph aureus. 2. Diverticulitis. HISTORY OF PRESENT ILLNESS: The patient is an 85-year-old female with multiple comorbidities, presented to the [facility] ER 2 days ago for evaluation of abdominal pain. The patient said it has been going on for a few days before presentation to hospital. The patient's pain has been mostly lower abdomina area, described to be more of a dull aching times quality. Intensity 6 to 7/10 and no radiation with associated nausea but no vomiting. Did have some constipation mixed with the diarrhea. With these symptoms the patient was evaluated by the ER physician. On arrival to the ER, the patient was afebrile and no fever has been recorded subsequently. The patient did have a normal white count. The patient did have a CT of abdomen and pelvis completed with evidence of diverticulitis in the sigmoid colon compared to old exam. The patient was admitted to the hospital and started on Zosyn. The patient also noticed to have a wound to the left leg with apparently started about a week ago when the patient did injure her left leg with the side of the bed with laceration. The patient has been complaining of pain to the left leg wound area to be more of a dull aching, 3 to 4/10, no radiation. Local culture now showing Staph aureus and has prompted this infectious disease consultation. REVIEW OF SYSTEMS: Positive points have been mentioned in HPI. Other systems are negative. PAST MEDICAL HISTORY: Asthma, COPD, DVT, hyperlipidemia, hypertension, osteoarthritis, gout, osteoporosis, diverticulitis. PAST SURGICAL HISTORY: Adenoidectomy, appendectomy, cholecystectomy, hernia repair, ( ), tonsillectomy tubal ligation. SOCIAL HISTORY: Remote history of smoking. No drinking or drug use. FAMILY HISTORY: Father with history of pulmonary fibrosis. ALLERGIES: LUNA INHIBITOR. MEDICATIONS: Currently the patient is on Tylenol, Pulmicort, Cymbalta, Neurontin, Lopressor, Coumadin, Singulair, morphine sulfate, Xanax, Protonix, Zosyn and IV fluid. PHYSICAL EXAMINATION: Blood pressure 110/62 with a pulse of 93, temperature 97.9. She is 98% on room air. General description is an elderly female lying in bed in no distress. No tachypnea or accessory muscles of respiration use. HEENT examination shows slight pallor. No scleral icterus. Oral mucous membrane is dry. NECK: Trachea is central, no thyromegaly. LUNGS: Unlabored breathing, clear to auscultation anteriorly. HEART: S1, S2. Regular rate and rhythm. ABDOMEN: Soft with mild tenderness in the ( ). No guarding, no rigidity. EXTREMITIES: Left leg did have a wound with soft tissue surrounding redness. No foul- smelling drainage. NEUROLOGIC: Patient is awake, alert, oriented. Mood and affect normal. LABS: Hemoglobin is 11.1, white count 9.8. BUN of 10, creatinine 0.68. Coronavirus PCR is negative. Left leg is showing Staph aureus. DIAGNOSTIC IMPRESSION AND PLAN: 1. Patient with left leg wound infected started as a laceration with evidence of Staph aureus, possible MSSA. 2. Patient with acute diverticulitis. No evidence of any abscess. PLAN: 1. Discontinue Zosyn. 2. Start the patient on Unasyn 3 g q.6h. This should cover the diverticulitis as well as left leg cellulitis. 3. Armand the area of the redness on left leg. 4. Local wound care with Medihoney followed by moist dressing. 5. We will follow on clinical condition and culture to further adjust medication if needed. Thank you for this consultation, will follow this patient along with you. MMODL / IJN: [id number] /
[2020-09-03 06:36] LABS: Anisocytosis Slight; Basophils # (A) 0.1 k/uL (0-0.2); Basophils % (A) 1 %; Eosinophils # (A) 0.2 k/uL (0-0.7); Eosinophils % (A) 3 %; HGB 9.9 gm/dL (11.4-16.0); Hypochromasia Slight; Lymphocytes # (A) 1.2 k/uL (1.0-4.8); Lymphocytes % (A) 16 %; MCH 30.6 pg (25.0-35.0); MCV 95.5 fL (80.0-100.0); Macrocytosis Slight; Mean Platelet Volume 7.5; Monocytes # (A) 0.7 k/uL (0-1.0); Monocytes % (A) 10 %; Neutrophils % (A) 69 %; Platelet Count 332 k/uL (150-450); RBC 3.25 m/uL (3.80-5.40); RDW 17.8 % (11.5-15.5); WBC 7.3 k/uL (3.8-10.6)
[2020-09-03 06:44] LABS: INR 3.7 (<1.2); Prothrombin Time 35.7 sec (9.0-12.0)
[2020-09-03 06:49] LABS: African American GFR (CKD) >90 (>60 ml/min/1.73 sqM); Anion Gap 4 mmol/L; Blood Urea Nitrogen 8 mg/dL (7-17); Calcium 7.8 mg/dL (8.4-10.2); Carbon Dioxide 25 mmol/L (22-30); Chloride 106 mmol/L (98-107); Glucose 101 mg/dL (74-99); Non-African American GFR(CKD) 85 (>60 ml/min/1.73 sqM); Potassium 3.8 mmol/L (3.5-5.1); Sodium 135 mmol/L (137-145)
[2020-09-03] MEDS: BUDESONIDE 0.5 MG/2 ML NEBU INHALATION SCH ×2 (08:57→19:03)
[2020-09-03] MEDS: PANTOPRAZOLE 40 MG TABLET PO SCH (09:14)
[2020-09-03] MEDS: GABAPENTIN 300 MG CAP PO SCH ×2 (09:14→21:24)
[2020-09-03] MEDS: ISOSORBIDE MONONITRATE ER 60 MG TAB.ER.24H PO SCH (09:14)
[2020-09-03] MEDS: METOPROLOL TARTRATE 25 MG TAB PO SCH ×3 (09:14→21:25)
[2020-09-03] MEDS: SUCRALFATE 1 GM TAB PO SCH (09:14)
--- NOTE | 2020-09-03 11:35 | P.PN ---
<MyavilmaAvani - Last Filed: 09/03/20 11:29> Subjective Progress Note Date: 09/03/20 CHIEF COMPLAINT: Abdominal pain HISTORY OF PRESENT ILLNESS: Surgical services following in regards to patient's diverticulitis. Patient reports that the left lower quadrant pain has resolved. She is tolerating a full liquid diet. She is having bowel movements without pain. She denies any blood in her stools. She is hungry and asking for transfer out of her diet. She's afebrile. WBC 7.3 hemoglobin is down from 11.1 to 9.9, INR 3.7 magnesium 2.0 PHYSICAL EXAM: VITAL SIGNS: Reviewed. GENERAL: Well-developed in no acute distress. HEENT: No sclera icterus. Extraocular movements grossly intact. Moist buccal mucosa. Head is atraumatic, normocephalic. ABDOMEN: Soft. Nondistended. Nontender. NEUROLOGIC: Alert and oriented. Cranial nerves II through XII grossly intact. ASSESSMENT: 1. Acute diverticulitis of the mid sigmoid colon improving 2. Prior diverticulitis infection in February 3. Atrial fibrillation anticoagulated with Coumadin 4. Hypomagnesemia improved with supplement PLAN: -Continue conservative management -Advance diet to low fiber -Continue antibiotics Physician Face Man note has been reviewed by physician. Signing provider agrees with the documented findings, assessment, and plan of care. Objective - Vital Signs Vital signs: Vital Signs Temp 97.5 F L 09/03/20 01:34 Pulse 86 09/03/20 09:03 Resp 18 09/03/20 08:45 BP 114/84 09/03/20 08:45 Pulse Ox 98 09/03/20 08:45 Intake & Output 09/02/20 09/03/20 09/03/20 18:59 06:59 18:59 Weight 90.718 kg Other: Voiding Method Toilet # Voids 1 1 # Bowel Movements 1 1 - Labs CBC & Chem 7: 09/03/20 06:02 09/03/20 06:02 Labs: Abnormal Lab Results - Last 24 Hours (Table) 09/03/20 09/03/20 09/03/20 Range/Units 06:02 06:02 06:02 RBC 3.25 L (3.80-5.40) m/uL Hgb 9.9 L (11.4-16.0) gm/dL Hct 31.0 L (34.0-46.0) % RDW 17.8 H (11.5-15.5) % PT 35.7 H (9.0-12.0) sec INR 3.7 H (<1.2) Sodium 135 L (137-145) mmol/L Glucose 101 H (74-99) mg/dL Calcium 7.8 L (8.4-10.2) mg/dL Microbiology - Last 24 Hours (Table) 09/01/20 12:25 Gram Stain - Preliminary Leg - Left Wound Culture - Preliminary Presumptive Staph aureus <Edgardo Mancuso - Last Filed: 09/03/20 12:21> Subjective As above. Patient doing well. Denies pain. Agree with advancing diet. May discharge tolerates. 1 week course of antibiotics postdischarge. Objective - Vital Signs Vital signs: Vital Signs Temp 97.5 F L 09/03/20 01:34 Pulse 86 09/03/20 09:03 Resp 18 09/03/20 08:45 BP 114/84 09/03/20 08:45 Pulse Ox 98 09/03/20 08:45 Intake & Output 09/02/20 09/03/20 09/03/20 18:59 06:59 18:59 Weight 90.718 kg Other: Voiding Method Toilet # Voids 1 1 # Bowel Movements 1 1 - Labs CBC & Chem 7: 09/03/20 06:02 09/03/20 06:02 Labs: Abnormal Lab Results - Last 24 Hours (Table) 09/03/20 09/03/20 09/03/20 Range/Units 06:02 06:02 06:02 RBC 3.25 L (3.80-5.40) m/uL Hgb 9.9 L (11.4-16.0) gm/dL Hct 31.0 L (34.0-46.0) % RDW 17.8 H (11.5-15.5) % PT 35.7 H (9.0-12.0) sec INR 3.7 H (<1.2) Sodium 135 L (137-145) mmol/L Glucose 101 H (74-99) mg/dL Calcium 7.8 L (8.4-10.2) mg/dL
[2020-09-03] MEDS: SODIUM CHLORIDE 0.9% 1,000 ML IV SCH (12:09)
--- NOTE | 2020-09-03 13:15 | PN ---
PROGRESS NOTE DATE OF SERVICE: 09/03/2020 REASON FOR FOLLOWUP: 1. Acute diverticulitis. 2. Left leg wound with secondary cellulitis. INTERVAL HISTORY: The patient is currently afebrile. The patient is breathing comfortably. Denies having any chest pain. No shortness of breath or cough. No nausea, vomiting. Abdominal pain is improved and pain to the left leg has decreased in intensity. PHYSICAL EXAMINATION: Blood pressure 114/84, pulse of 85. Temperature is 97.5. She is 98% on room air. General description: The patient is an elderly female up in the in no distress. Respiratory system: Unlabored breathing, clear to auscultation anteriorly. Heart S1, S2. Regular rate and rhythm. Abdomen soft, no tenderness. Left leg wound is currently dressed. No obvious drainage on the dressing. LABS: Hemoglobin is 9.1, white count 9.2, BUN of 8, creatinine 0.59. Left leg with presumptive Staph aureus. Sensitivities pending. DIAGNOSTIC IMPRESSION AND PLAN: 1. Patient admitted to the hospital with diverticulitis. No evidence of any abscess, on Unasyn to continue. 2. Left leg wound culture with Staph aureus, possible MSSA to continue with Unasyn. 3. Discharge antibiotics medications depend upon the culture report. 4. Continue supportive care. MMODL / IJN: [id number] /
--- NOTE | 2020-09-03 13:34 | P.PN ---
Subjective 85-year-old female, history of COPD/asthma, hypertension, hyperlipidemia and DVT; presenting to the emergency Department with complaints of abdominal discomfort. Onset of symptoms was a couple of days ago. Patient has lower abdominal discomfort similar to previous diverticulitis. No nausea vomiting. No change in appetite. Patient has had some mixed constipation or diarrhea. No fevers. Discomfort is moderate. Patient was worked up in ED with a CT of the abdomen which was positive for acute diverticulitis; lab work was done and revealed the WBC of 10.5, hemoglobin of 10.9 and platelet count of 348; chemical profile so shows sodium of 135, potassium 4.0, BUN of 21 with creatinine of 0.7 to 09/01/2020 Patient still complaining from left lower quadrant pain and tenderness, no rebound tenderness, she says her pain is improving slightly. She is hemodynamically stable and left showing no leukocytosis and patient is already covered with Zosyn. We going to consult surgical team Also patient has a wound in her left anterior cowart with some purulent discharge. Patient is already covered with Zosyn and normal saline at 75 mL/h. We will send for wound culture and ask for a wound consult The patient is on warfarin for her history of A. fib and her INR therapeutic at 2.4 09/02/2020 Patient improving left lower quadrant abdominal pain down from 7/10 down to 0/10 TODAY. NO NAUSEA VOMITING. PATIENT HAD 2 BOWEL MOVEMENTS ONE OF THEM IS FORMED AND THE SECOND ONE IS LOOSE. pt is with left leg wound growing staph, rule out MRSA react patient is currently on Zosyn for her diverticulitis. Consult appreciated. Surgery team recommended conservative treatment Patient currently is maintained on Zosyn and normal sinus at 75 and warfarin pharmacy to dose with INR today is 2.9 09/03/2020 Patient with no abdominal pain today as 0/10, no left lower quadrant tenderness. She has 2 loose bowel movement and her diet been advised today to regular diet. Left leg culture came back as MSSA, patient is currently on Unasyn Also she has left upper extremity redness and swelling around the elbow, most likely superficial thrombophlebitis, check Doppler and ultrasound. Also we'll do left elbow x-ray hemodynamically stable, labs including CBC and BMP are unremarkable and low magnesium corrected up to 2.0 today. Her INR is 3.7. Hold Coumadin tonight and check INR tomorrow. Objective - Vital Signs Vital signs: Vital Signs Temp 97.5 F L 09/03/20 01:34 Pulse 86 09/03/20 09:03 Resp 18 09/03/20 08:45 BP 114/84 09/03/20 08:45 Pulse Ox 98 09/03/20 08:45 Intake & Output 09/02/20 09/03/20 09/03/20 18:59 06:59 18:59 Weight 90.718 kg Other: Voiding Method Toilet # Voids 1 1 # Bowel Movements 1 1 - Exam GENERAL: The patient is alert and oriented x3, not in any acute distress. Well developed, well nourished. HEENT: Pupils are round and equally reacting to light. EOMI. No scleral icterus. No conjunctival pallor. Normocephalic, atraumatic. No pharyngeal erythema. No thyromegaly. CARDIOVASCULAR: S1 and S2 present. No murmurs, rubs, or gallops. PULMONARY: Chest is clear to auscultation, no wheezing or crackles. -ABDOMEN: Soft, LLQ tenderness, no rebound tenderness ended, normoactive bowel sounds. No palpable organomegaly. MUSCULOSKELETAL: No joint swelling or deformity. -EXTREMITIES: No cyanosis, clubbing, or pedal edema. Left leg superficial ulcer about 2 inches in diameter and 1 inch in width. With some yellow purulent discharge at the base and no surrounding cellulitis NEUROLOGICAL: Gross neurological examination did not reveal any focal deficits. SKIN: No rashes. no petechiae. - Labs CBC & Chem 7: 09/03/20 06:02 09/03/20 06:02 Labs: Abnormal Lab Results - Last 24 Hours (Table) 09/03/20 09/03/20 09/03/20 Range/Units 06:02 06:02 06:02 RBC 3.25 L (3.80-5.40) m/uL Hgb 9.9 L (11.4-16.0) gm/dL Hct 31.0 L (34.0-46.0) % RDW 17.8 H (11.5-15.5) % PT 35.7 H (9.0-12.0) sec INR 3.7 H (<1.2) Sodium 135 L (137-145) mmol/L Glucose 101 H (74-99) mg/dL Calcium 7.8 L (8.4-10.2) mg/dL Microbiology - Last 24 Hours (Table) 09/01/20 12:25 Gram Stain - Final Leg - Left Wound Culture - Final Staphylococcus aureus Assessment and Plan Assessment: 1. Acute diverticulitis - Change antibiotics to Unasyn - Pain controlled with morphine for gram IV every 4 hours when necessary - Patient is to start on Protonix 40 mg daily - Surgical team consult 2. Anemia; not short of baseline hemoglobin; we will monitor CBC closely; stool occult blood; iron studies 3. Mild renal injury/dehydration; IV fluid hydration with normal saline as indicated above; monitor strict SADIE's, daily weights, renal function and electrolytes; avoid nephrotoxins and hypotension 4. Hyperlipidemia; Lipitor 40 mg by mouth daily at bedtime 5. Hypertension; continue with home dose of metoprolol 25 mg 3 times a day, Imdur 60 mg daily; hold hydrochlorothiazide 6. COPD/asthma; continue with home inhaler regimen 7. Depression; Cymbalta 60 mg by mouth daily at bedtime 8. Left leg wound, sent for wound culture, wound consult . Unasyn 9. Left arm swelling and tenderness. Check ultrasound and x-ray DVT prophylaxis; SCDs/subcu heparin CODE STATUS; full code
--- NOTE | 2020-09-03 14:14 | US ---
EXAMINATION TYPE: US venous doppler duplex UE LT DATE OF EXAM: 09/03/2020 COMPARISON: NONE CLINICAL HISTORY: ultrasound of left arm (soft tissue) erythema/edema. edema and redness left arm. re cent IV left arm. Patient on coumadin - AFIB SIDE PERFORMED: left Left Arm: no evidence of DVT as visualized Grayscale, color doppler, spectral doppler imaging performed of the deep veins of the left upper extr emity. There is normal flow, compressibility and vascular waveforms. IMPRESSION: No ultrasound evidence for acute deep or superficial venous thrombosis in the left upper extremity and images saved.
--- NOTE | 2020-09-03 16:53 | XR ---
EXAMINATION TYPE: XR elbow limited LT DATE OF EXAM: 09/03/2020 CLINICAL HISTORY: Redness and swelling around the joint. TECHNIQUE: Frontal, lateral and oblique images of the left elbow are obtained. COMPARISON: None FINDINGS: There is no acute fracture/dislocation evident in the left elbow. There is an elevated ant erior fat pad. No radial head fracture is seen; however an occult fracture cannot be excluded. Altern atively this may represent joint effusion due to infectious/inflammatory process, such as infectious process of the joint. IMPRESSION: 1. Elevated anterior fat pad. An occult fracture of the radial head is not excluded. No discrete frac ture is seen. Joint effusion due to Underlying joint infection is not excluded.
[2020-09-03] MEDS: MORPHINE SULFATE 4 MG/ML SYRINGE IV PRN ×2 (17:48→22:44)
[2020-09-03] MEDS ORDERED: WARFARIN 0.5 MG TAB PO ONE (18:00)
[2020-09-03] MEDS: MONTELUKAST 10 MG TAB PO SCH (21:24)
[2020-09-03] MEDS: DULoxetine HCL 60 MG CAPSULE.DR PO SCH (21:25)
[2020-09-03] MEDS: ACETAMINOPHEN TAB 325 MG TAB PO PRN (21:25)
[2020-09-03] MEDS: LATANOPROST 0.005% OPHTH DROPS 2.5 ML BTL BOTH EYES SCH (21:34)
[2020-09-04] MEDS ORDERED: MORPHINE SULFATE 2 MG/ML SYRINGE IVP STA (01:13)
[2020-09-04] MEDS: SODIUM CHLORIDE 0.9% 1,000 ML IV SCH ×2 (01:20→13:08)
[2020-09-04] MEDS: ACETAMINOPHEN TAB 325 MG TAB PO PRN (03:42)
[2020-09-04] MEDS: AMPICILLIN-SULBACTAM 3 GM in SODIUM CHLORIDE 0.9% 100 ML IVPB SCH ×4 (05:27→23:04)
[2020-09-04] MEDS: oxyCODONE-APAP 10-325MG 1 EACH TAB PO PRN ×3 (06:55→17:56)
[2020-09-04] MEDS: BUDESONIDE 0.5 MG/2 ML NEBU INHALATION SCH ×2 (07:15→19:17)
--- NOTE | 2020-09-04 07:47 | US ---
EXAMINATION TYPE: US extremity nonvascular ltd LT DATE OF EXAM: 09/04/2020 COMPARISON: NONE CLINICAL HISTORY: Edema and pain. Venous doppler done yesterday was negative for DVT, still having sw elling near antecubital fossa and hand Soft tissue scan of antecubital fossa as well at patients hand showed edema with no focal fluid colle ction or abnormality noted. IMPRESSION: 1. There is subcutaneous soft tissue edema within the left hand and the left antecubital fossa. No di screte fluid collection identified on sonography to suggest abscess.
[2020-09-04 08:11] LABS: INR 3.3 (<1.2); Prothrombin Time 32.2 sec (9.0-12.0)
[2020-09-04] MEDS: ISOSORBIDE MONONITRATE ER 60 MG TAB.ER.24H PO SCH (09:31)
[2020-09-04] MEDS: METOPROLOL TARTRATE 25 MG TAB PO SCH ×3 (09:31→21:32)
[2020-09-04] MEDS: SUCRALFATE 1 GM TAB PO SCH (09:32)
[2020-09-04] MEDS: PANTOPRAZOLE 40 MG TABLET PO SCH (09:32)
[2020-09-04] MEDS: GABAPENTIN 300 MG CAP PO SCH ×2 (09:32→21:32)
[2020-09-04] MEDS: MORPHINE SULFATE 4 MG/ML SYRINGE IV PRN (09:42)
--- NOTE | 2020-09-04 10:05 | P.CNOR ---
History of Present Illness - [facility] Consult date: 09/04/20 Consult reason: other (Left upper extremity pain and swelling) History of present illness: Patient is a very pleasant 85-year-old female who was admitted to the hospital. Days ago in regards to her diverticulitis. She has been managing that with medicine service and surgical service and has been making some improvement. However last night she started having problems in her left upper extremity wrist hand and elbow. She denies any specific accident. She denies any prior trauma. She is right-hand dominant. She says she has history of rheumatoid arthritis but this does not feel the same. She has no incident or trauma or fall. She says it hurts when she moves her wrist and hand. She's been trying to keep it elevated with ice but it is not settling down. She denies any new fevers or chills. She denies any chest pain or shortness of breath. She underwent ultrasound of her left upper extremity which was negative for any DVT. Her uric acid was 4. Review of Systems She feels her Carlos pain is improving. She is continue management for her diverticulitis. Her left upper extremity has pain particularly at her wrist. She has difficulty with moving her wrist and with supination and pronation. She is able to move her fingers. She denies any fevers. She denies any significant pain at her elbow or shoulder. She is right-hand dominant. She is his rheumatoid arthritis. Past Medical History Past Medical History: Asthma, COPD, Deep Vein Thrombosis (DVT), Hyperlipidemia, Hypertension, Osteoarthritis (OA), Rheumatoid Arthritis (RA), Skin Disorder Additional Past Medical History / Comment(s): Hx. gout, DVT L upper arm, dermatitis, bilateral glaucoma, bradycardia- pacemaker, degenerative disc disease, cervical and back pain History of Any Multi-Drug Resistant Organisms: None Reported Past Surgical History: Adenoidectomy, Appendectomy, Cholecystectomy, Hernia Repair, Orthopedic Surgery, Pacemaker, Tonsillectomy, Tubal Ligation Additional Past Surgical History / Comment(s): Hx throat nodule removed, mole left eyelid, D&C, bilat cataracts removed . RIGHT KNEE REPLACEMENT X 2., shoulder surgeries , hiatal hernia repair, I&D L inguinal abscess, right wrist surgery Past Anesthesia/Blood Transfusion Reactions: No Reported Reaction Type of Cardiac Device: Permanent Pacemaker Device Placement Date:: October 2012 Past Psychological History: No Psychological Hx Reported Smoking Status: Former smoker Past Alcohol Use History: None Reported Past Drug Use History: None Reported - Past Family History Father Additional Family Medical History / Comment(s): Father pulmonary fibrosis Mother Family Medical History: Cancer Sister(s) Additional Family Medical History / Comment(s): melanoma Medications and Allergies Home Medications Medication Instructions Recorded Confirmed Type Bimatoprost [Lumigan .01% Ophth 1 drop BOTH EYES HS 11/07/13 08/31/20 History Soln] Isosorbide Mononitrate [Imdur] 60 mg PO DAILY 11/07/13 08/31/20 History Montelukast [Singulair] 10 mg PO HS 11/07/13 08/31/20 History allopurinoL [Zyloprim] 100 mg PO BID 07/09/14 08/31/20 History Budesonide [Pulmicort] 0.5 mg INHALATION RT-BID 03/29/16 08/31/20 History Omeprazole 20 mg PO BID 03/29/16 08/31/20 History DULoxetine HCL [Cymbalta] 60 mg PO HS 11/22/18 08/31/20 History Denosumab [Prolia] 60 mg SQ Q180D 02/10/20 08/31/20 History Folic Acid 1 mg PO DAILY 02/10/20 08/31/20 History Multivitamins, Thera [Multivitamin 1 tab PO DAILY 02/10/20 08/31/20 History (formulary)] Nitroglycerin Sl Tabs [Nitrostat] 0.4 mg SUBLINGUAL Q5M PRN 02/10/20 08/31/20 History Warfarin [Coumadin] 2.5 mg PO FR@1800 03/07/20 08/31/20 History Famotidine [Pepcid] 20 mg PO DAILY tab 03/11/20 08/31/20 Rx Gabapentin [Neurontin] 600 mg PO BID #6 tab 03/11/20 08/31/20 Rx Atorvastatin [Lipitor] 20 mg PO HS 08/31/20 08/31/20 History Calcium Carbonate [Calcium] 600 mg PO DAILY 08/31/20 08/31/20 History Cholecalciferol [Vitamin D3 (25 25 mcg PO DAILY 08/31/20 08/31/20 History Mcg = 1000 Iu)] Metoprolol Tartrate [Lopressor] 25 mg PO TID 08/31/20 08/31/20 History Sucralfate [Carafate] 1 gm PO DAILY 08/31/20 08/31/20 History Warfarin [Coumadin] 5 mg PO SUMOTUWETHSA@1800 08/31/20 08/31/20 History hydroCHLOROthiazide 25 mg PO DAILY 08/31/20 08/31/20 History metHOTREXate sodium [Methotrexate] 25 mg PO FR 08/31/20 08/31/20 History Allergies Allergy/AdvReac Type Severity Reaction Status Date / Time LUNA Inhibitors AdvReac Cough Verified 08/31/20 17:50 tape Allergy Unknown Uncoded 08/31/20 17:50 Physical Examination Osteopathic Statement: *. No significant issues noted on an osteopathic structural exam other than those noted in the History and Physical/Consult. - Wrist & Hand left Location of pain: dorsal wrist (There is diffuse swelling of her hand and wrist. There is no specific erythema. There is no streaking. Her compartments are soft. She is able to wiggle her fingers though she has pain at her hand with this. There is no evidence of pain out of proportion with passive range of motion at her finge), volar wrist (There is some diffuse swelling around her wrist and carpus. She does not have pain with passive stretch. Her compartments are soft. There is no streaking. She has significant tenderness with palpation over her styloid.), radial wrist (Significant pain with palpation of her radial styloid. There is no crepitus. She has positive pain at her basal joint of her thumb. Pain with flexion and extension and supination pronation no significant pain at her elbow. Her elbow is nontender. Her forearm is nontender. Compartments are soft) Wrist pain modifiers: with motion Thumb pain modifiers: with motion Symptoms: wrist swelling, dorsal hand swelling, palmar hand swelling Tenderness with palpation: radial wrist Results - Labs Labs: Abnormal Lab Results - Last 24 Hours (Table) 09/04/20 Range/Units 06:22 PT 32.2 H (9.0-12.0) sec INR 3.3 H (<1.2) Microbiology - Last 24 Hours (Table) 09/01/20 12:25 Anaerobic Culture - Preliminary Leg - Left 09/01/20 12:25 Gram Stain - Final Leg - Left Wound Culture - Final Staphylococcus aureus H & H 08/31/20 09/01/20 09/02/20 Range/Units 13:11 06:12 07:36 Hgb 10.9 L 10.4 L 11.1 L (11.4-16.0) gm/dL Hct 34.6 32.2 L 35.5 (34.0-46.0) % 09/03/20 Range/Units 06:02 Hgb 9.9 L (11.4-16.0) gm/dL Hct 31.0 L (34.0-46.0) % Coagulation 08/31/20 09/01/20 09/02/20 Range/Units 13:11 10:44 07:36 INR 2.4 H 2.4 H 2.9 H (<1.2) 09/03/20 09/04/20 Range/Units 06:02 06:22 INR 3.7 H 3.3 H (<1.2) Result Diagrams: 09/03/20 06:02 09/03/20 06:02 - Diagnostic results Wrist/Hand x-ray: report reviewed (We do not yet have an official report for her wrist and hand x-rays. Elbow x-ray shows no evidence of fracture. There is some soft tissue swelling. There seems to be lucent line at her distal radius across her radial styloid with minimal displacement.), image reviewed (Imaging elbow wrist and hand are reviewed. There is severe arthritis at the CMC joint of her thumb. There is a SLAC widening at her scapholunate. There is a lucent line across her distal radius involving her radial styloid. There is no displacement but there appears to be a fracture line. ) Assessment and Plan Assessment: Left distal radius pain. Left wrist pain. Left hand and wrist swelling. Uncertain etiology without any specific trauma Negative duplex Doppler ultrasound of upper extremity Plan: Left distal radius pain. Left wrist pain. Left hand and wrist swelling. Uncertain etiology without any specific trauma Negative duplex Doppler ultrasound of upper extremity Is difficult to fully determine the etiology the patient's symptoms. She denies any specific trauma or injury but there appears to be a fracture line at her distal radius. She has pain with motion and I think that she can do well with splinting. We will order a splint for her. I think that she should be treated as a distal radius fracture at this point to try to give her some comfort. I do see a small lucent line at her distal radius which correlates well with her pain and symptoms on exam. I would plan to treat this as a fracture and plan to treat this conservatively. There is no specific abscess or streaking or indication of infectious process at this point. Her compartments are soft and she is able to move her fingers. She does not appear to have a neurologic deficit. Her ultrasound was negative for DVT and I do not see any specific evidence for a clot. Her elbow appears to be stable. We will start with conservative treatment with a wrist splint for her and follow her closely with you. She is continuing her management in regards her diverticulitis. Time with Patient: Greater than 30
--- NOTE | 2020-09-04 10:06 | XR ---
EXAMINATION TYPE: XR hand complete LT, XR wrist complete LT DATE OF EXAM: 09/04/2020 CLINICAL HISTORY: Idiopathic swelling of the hand and arm no known injury. History of her osteoarthri tis. TECHNIQUE: Frontal, lateral and oblique images of the left hand are obtained. COMPARISON: 04/28/2017 FINDINGS: Left hand: There is a nondisplaced fracture through the proximal portion of the distal phalanx of the first digit. This extends into the DIP joint. Severe bony demineralization limits evaluation for acu te fracture. There is narrowing of the radiocarpal joint space. Mild widening of the scapholunate int erval. Narrowing of the carpometacarpal joint space of the first digit suggestive of osteoporosis. Na rrowing of the DIP joint suggestive of osteoarthritis. Findings have significantly progressed since t hat 04/28/2017 study. Distal radius and ulna appear intact. Mild prominence of the overlying soft tiss ues. Left wrist: No evidence of fracture or dislocation of the left wrist. Severe bony demineralization li mits evaluation for acute fractures. There is narrowing of the radiocarpal joint space with widening of the scapholunate interval. Degenerative narrowing of the base of the carpometacarpal joint space o f the first digit suggestive of osteoarthritis. Mild prominence of the overlying soft tissues. IMPRESSION: 1. Left hand: Nondisplaced fracture through the proximal portion (base) views of the distal phalanx o f the first digit extending into the DIP joint. 2. Severe bony demineralization of the left hand and left wrist, the suboptimal evaluation for acute fracture. No evidence of fracture or dislocation of left wrist. 3. Findings are suggestive of severe osteoarthritis of the DIP joints and carpometacarpal joint space of the first digit. 4. Widening of the scapholunate interval suggestive of scapholunate dislocation.
[2020-09-04] MEDS: CALCIUM CARB-VIT D 500 MG-5 MCG TAB PO SCH ×2 (12:27→17:56)
--- NOTE | 2020-09-04 12:36 | P.PN ---
<Avani Travis - Last Filed: 09/04/20 12:29> Subjective Progress Note Date: 09/04/20 CHIEF COMPLAINT: Abdominal pain HISTORY OF PRESENT ILLNESS: Surgical services following in regards to patient's diverticulitis. Patient denies any abdominal pain. Denies any nausea or vomiting. She did have a loose bowel movement without pain. No evidence of blood in the stools. She is tolerating low fiber diet. She is complaining of left wrist pain and swelling. She's been evaluated by orthopedics. Afebrile. INR 3.3 PHYSICAL EXAM: VITAL SIGNS: Reviewed. GENERAL: Well-developed in no acute distress. HEENT: No sclera icterus. Extraocular movements grossly intact. Moist buccal mucosa. Head is atraumatic, normocephalic. ABDOMEN: Soft. Nondistended. Nontender. NEUROLOGIC: Alert and oriented. Cranial nerves II through XII grossly intact. ASSESSMENT: 1. Acute diverticulitis of the mid sigmoid colon. Improved 2. Prior diverticulitis infection in February 3. Atrial fibrillation anticoagulated with Coumadin 4. Hypomagnesemia improved with supplement PLAN: -Continue conservative management -Continue low fiber diet -Continue antibiotics per ID -Orthopedics following patient's left wrist pain and swelling Physician Wrinkle Chaser note has been reviewed by physician. Signing provider agrees with the documented findings, assessment, and plan of care. Objective - Vital Signs Vital signs: Vital Signs Temp 98.4 F 09/04/20 08:24 Pulse 89 09/04/20 10:22 Resp 16 09/04/20 10:22 BP 153/85 09/04/20 08:24 Pulse Ox 96 09/04/20 10:22 Intake & Output 09/03/20 09/04/20 09/04/20 18:59 06:59 18:59 Intake Total 900 600 Balance 900 600 Intake: Intake, IV Titration 600 Amount Sodium Chloride 0.9% 1, 600 000 ml @ 75 mls/hr IV . [id number] [facility] Rx#:[id number] Oral 900 Other: # Voids 3 1 # Bowel Movements 2 - Labs CBC & Chem 7: 09/03/20 06:02 09/03/20 06:02 Labs: Abnormal Lab Results - Last 24 Hours (Table) 09/04/20 Range/Units 06:22 PT 32.2 H (9.0-12.0) sec INR 3.3 H (<1.2) Microbiology - Last 24 Hours (Table) 09/01/20 12:25 Anaerobic Culture - Preliminary Leg - Left 09/01/20 12:25 Gram Stain - Final Leg - Left Wound Culture - Final Staphylococcus aureus <dEgardo Mancuso - Last Filed: 09/04/20 16:06> Subjective As above. Patient doing well today. Denies abdominal pain. Tolerating diet. Patient having left wrist swelling being investigated. Objective - Vital Signs Vital signs: Vital Signs Temp 97.3 F L 09/04/20 14:16 Pulse 91 09/04/20 14:16 Resp 18 09/04/20 14:16 BP 143/84 09/04/20 14:16 Pulse Ox 96 09/04/20 14:16 Intake & Output 09/03/20 09/04/20 09/04/20 18:59 06:59 18:59 Intake Total 900 600 Balance 900 600 Weight 90.718 kg Intake: Intake, IV Titration 600 Amount Sodium Chloride 0.9% 1, 600 000 ml @ 75 mls/hr IV . [id number] [facility] Rx#:[id number] Oral 900 Other: # Voids 3 1 # Bowel Movements 2 - Labs CBC & Chem 7: 09/03/20 06:02 09/03/20 06:02 Labs: Abnormal Lab Results - Last 24 Hours (Table) 09/04/20 Range/Units 06:22 PT 32.2 H (9.0-12.0) sec INR 3.3 H (<1.2) Microbiology - Last 24 Hours (Table) 09/01/20 12:25 Anaerobic Culture - Preliminary Leg - Left 09/01/20 12:25 Gram Stain - Final Leg - Left Wound Culture - Final Staphylococcus aureus
--- NOTE | 2020-09-04 14:30 | PN ---
PROGRESS NOTE DATE OF SERVICE: 09/04/2020 REASON FOR FOLLOWUP: Diverticulitis and left leg wound with secondary cellulitis. INTERVAL HISTORY: The patient is afebrile. The patient is breathing comfortably. She has been complaining of more pain to the left hand area previous IV site. The patient denies any chest pain. No shortness of breath or cough. No abdominal pain or diarrhea. PHYSICAL EXAMINATION: Blood pressure 153/85, pulse of 89, temperature 98.4. She is 96% on room air. General description: The patient is an elderly female up in the bed in no distress. Respiratory system: Unlabored breathing, clear to auscultation anteriorly. Heart S1, S2. Regular rate and rhythm. Abdomen soft, no tenderness. Left leg wound is currently dressed. No drainage on the dressing. LABS: White count is normal. Wound culture with MSSA. DIAGNOSTIC IMPRESSION AND PLAN: Patient with MSSA left leg wound with secondary cellulitis in this patient admitted to the hospital with diverticulitis. Covered with Unasyn to continue. Finish therapy with oral Augmentin and close outpatient followup. MMODL / IJN: [id number] /
--- NOTE | 2020-09-04 15:17 | P.PN ---
Subjective 85-year-old female, history of COPD/asthma, hypertension, hyperlipidemia and DVT; presenting to the emergency Department with complaints of abdominal discomfort. Onset of symptoms was a couple of days ago. Patient has lower abdominal discomfort similar to previous diverticulitis. No nausea vomiting. No change in appetite. Patient has had some mixed constipation or diarrhea. No fevers. Discomfort is moderate. Patient was worked up in ED with a CT of the abdomen which was positive for acute diverticulitis; lab work was done and revealed the WBC of 10.5, hemoglobin of 10.9 and platelet count of 348; chemical profile so shows sodium of 135, potassium 4.0, BUN of 21 with creatinine of 0.7 to 09/01/2020 Patient still complaining from left lower quadrant pain and tenderness, no rebound tenderness, she says her pain is improving slightly. She is hemodynamically stable and left showing no leukocytosis and patient is already covered with Zosyn. We going to consult surgical team Also patient has a wound in her left anterior cowart with some purulent discharge. Patient is already covered with Zosyn and normal saline at 75 mL/h. We will send for wound culture and ask for a wound consult The patient is on warfarin for her history of A. fib and her INR therapeutic at 2.4 09/02/2020 Patient improving left lower quadrant abdominal pain down from 7/10 down to 0/10 TODAY. NO NAUSEA VOMITING. PATIENT HAD 2 BOWEL MOVEMENTS ONE OF THEM IS FORMED AND THE SECOND ONE IS LOOSE. pt is with left leg wound growing staph, rule out MRSA react patient is currently on Zosyn for her diverticulitis. Consult appreciated. Surgery team recommended conservative treatment Patient currently is maintained on Zosyn and normal sinus at 75 and warfarin pharmacy to dose with INR today is 2.9 09/03/2020 Patient with no abdominal pain today as 0/10, no left lower quadrant tenderness. She has 2 loose bowel movement and her diet been advised today to regular diet. Left leg culture came back as MSSA, patient is currently on Unasyn Also she has left upper extremity redness and swelling around the elbow, most likely superficial thrombophlebitis, check Doppler and ultrasound. Also we'll do left elbow x-ray hemodynamically stable, labs including CBC and BMP are unremarkable and low magnesium corrected up to 2.0 today. Her INR is 3.7. Hold Coumadin tonight and check INR tomorrow. 09/04/2020 Patient today developed swelling and tenderness in her left wrist, also yesterday she had swelling around the left elbow : Elevated anterior fat pad. An occult fracture of the radial head is not excluded. No discrete Fracture is seen. Joint effusion due to underlying joint infection is not excluded. Left wrist and hand x-ray: Nondisplaced fracture through the proximal portion of the distal phalanx of the first digit extending into the DIP joint, severe bone tomorrow Physician, severe osteoarthritis of the DIP joints, widening of the scapholunate interval suggestive of scapholunate dislocation. orthopedic team consult was obtained and the recommend to treat the fracture conservatively with splint. Ultrasound of the soft tissue of the left upper extremity: No abscess Patient is started with Percocet for pain management as she was refusing IV morphine because she feels sick with it. Her diverticulitis and left leg cellulitis are improving CONSTITUTIONAL: No fever, no malaise, no fatigue. HEENT: No recent visual problems or hearing problems. Denied any sore throat. CARDIOVASCULAR: No orthopnea, PND, no palpitations, no syncope. PULMONARY: No shortness of breath, no cough, no hemoptysis. GASTROINTESTINAL: No diarrhea, no nausea, no vomiting, no abdominal pain. Normoactive bowel sounds. NEUROLOGICAL: No headaches, no weakness, no numbness. Active Medications Generic Name Dose Route Start Last Admin Trade Name Freq PRN Reason Stop Dose Admin Acetaminophen 650 mg 08/31/20 15:48 09/04/20 03:42 Acetaminophen Tab 325 Mg Tab PO 650 mg Q6HR PRN Administration Mild Pain or Fever > 100.5 Budesonide 0.5 mg 09/01/20 08:00 09/04/20 07:15 Budesonide 0.5 Mg/2 Ml Nebu INHALATION Not Given RT-BID [facility] Calcium Carbonate 1 each 09/04/20 12:30 09/04/20 12:27 Calcium Carb-Vit D 500 Mg-5 Mcg Tab PO 1 each TID-W/MEALS SUBH[facility] Administration Duloxetine HCl 60 mg 09/01/20 21:00 09/03/20 21:25 Duloxetine Hcl 60 Mg Capsule.Dr PO 60 mg HS SUBHASH Administration Gabapentin 600 mg 09/01/20 09:00 09/04/20 09:32 Gabapentin 300 Mg Cap PO 600 mg BID SUBHASH Administration Sodium Chloride 1,000 mls @ 75 mls/hr 08/31/20 16:00 09/04/20 13:08 Saline 0.9% IV 75 mls/hr .[id number] SU[facility] Administration Ampicillin Sodium/Sulbactam 100 mls @ 200 mls/hr 09/03/20 00:00 09/04/20 12:27 Sodium 3 gm/ Sodium Chloride IVPB 200 mls/hr Q6HR [facility] Administration Isosorbide Mononitrate 60 mg 09/01/20 09:00 09/04/20 09:31 Isosorbide Mononitrate Er 60 Mg Tab.Er.24h PO 60 mg DAILY [facility] Administration Latanoprost 1 drops 09/01/20 21:00 09/03/20 21:34 Latanoprost 0.005% Ophth Drops 2.5 Ml Btl BOTH EYES 1 drops HS SU[facility] Administration Metoprolol Tartrate 25 mg 08/31/20 22:00 09/04/20 09:31 Metoprolol Tartrate 25 Mg Tab PO 25 mg TID [facility] Administration Miscellaneous Information 1 each 08/31/20 21:27 Warfarin Per Pharmacy MISCELLANE DIRECTED PRN Per Protocol Protocol Miscellaneous Information 1 each 09/02/20 20:20 Magnesium Replacement Protocol 1 Each Mis MISCELLANE DAILY PRN Per Protocol Protocol Miscellaneous Information 1 each 09/02/20 20:20 Potassium Replacement Protocol 1 Each [facility] MISCELLANE DAILY PRN Per Protocol Protocol Montelukast Sodium 10 mg 09/01/20 21:00 09/03/20 21:24 Montelukast 10 Mg Tab PO 10 mg HS SUBHASH Administration Morphine Sulfate 4 mg 08/31/20 15:48 09/04/20 09:42 Morphine Sulfate 4 Mg/Ml Syringe IV 4 mg Q4HR PRN Administration Severe Pain Naloxone HCl 0.2 mg 08/31/20 15:48 Naloxone 0.4 Mg/Ml 1 Ml Vial IV Q2M PRN Opioid Reversal Oxycodone/Acetaminophen 1 each 09/04/20 06:32 09/04/20 12:29 Oxycodone-Apap 10-325mg 1 Each Tab PO 1 each Q6H PRN Administration Pain Pantoprazole Sodium 40 mg 09/03/20 09:00 09/04/20 09:32 Pantoprazole 40 Mg Tablet PO 40 mg DAILY SU[facility]ASH Administration Sucralfate 1 gm 09/01/20 09:00 09/04/20 09:32 Sucralfate 1 Gm Tab PO 1 gm DAILY SU[facility]ASH Administration Warfarin Sodium 1 mg 09/04/20 18:00 Warfarin 1 Mg Tab PO 09/04/20 18:01 ONCE@1800 ONE Objective - Vital Signs Vital signs: Vital Signs Temp 97.3 F L 09/04/20 14:16 Pulse 91 09/04/20 14:16 Resp 18 09/04/20 14:16 BP 143/84 09/04/20 14:16 Pulse Ox 96 09/04/20 14:16 Intake & Output 09/03/20 09/04/20 09/04/20 18:59 06:59 18:59 Intake Total 900 600 Balance 900 600 Weight 90.718 kg Intake: Intake, IV Titration 600 Amount Sodium Chloride 0.9% 1, 600 000 ml @ 75 mls/hr IV . [id number] [facility] Rx#:[id number] Oral 900 Other: # Voids 3 1 # Bowel Movements 2 - Exam GENERAL: The patient is alert and oriented x3, not in any acute distress. Well developed, well nourished. HEENT: Pupils are round and equally reacting to light. EOMI. No scleral icterus. No conjunctival pallor. Normocephalic, atraumatic. No pharyngeal erythema. No thyromegaly. CARDIOVASCULAR: S1 and S2 present. No murmurs, rubs, or gallops. PULMONARY: Chest is clear to auscultation, no wheezing or crackles. -ABDOMEN: Soft, LLQ tenderness, no rebound tenderness ended, normoactive bowel sounds. No palpable organomegaly. MUSCULOSKELETAL: No joint swelling or deformity. -EXTREMITIES: No cyanosis, clubbing, or pedal edema. Left leg superficial ulcer about 2 inches in diameter and 1 inch in width. With some yellow purulent discharge at the base and no surrounding cellulitis NEUROLOGICAL: Gross neurological examination did not reveal any focal deficits. SKIN: No rashes. no petechiae. - Labs CBC & Chem 7: 09/03/20 06:02 09/03/20 06:02 Labs: Abnormal Lab Results - Last 24 Hours (Table) 09/04/20 Range/Units 06:22 PT 32.2 H (9.0-12.0) sec INR 3.3 H (<1.2) Microbiology - Last 24 Hours (Table) 09/01/20 12:25 Anaerobic Culture - Preliminary Leg - Left 09/01/20 12:25 Gram Stain - Final Leg - Left Wound Culture - Final Staphylococcus aureus Assessment and Plan Assessment: 1. Acute diverticulitis - Change antibiotics to Unasyn - Pain controlled with Percocet - Patient is to start on Protonix 40 mg daily - Surgical team consult 2. Anemia; not short of baseline hemoglobin; we will monitor CBC closely; stool occult blood; iron studies 3. Mild renal injury/dehydration; IV fluid hydration with normal saline as indicated above; monitor strict SADIE's, daily weights, renal function and elect rolytes; avoid nephrotoxins and hypotension 4. Hyperlipidemia; Lipitor 40 mg by mouth daily at bedtime 5. Hypertension; continue with home dose of metoprolol 25 mg 3 times a day, Imdur 60 mg daily; hold hydrochlorothiazide 6. COPD/asthma; continue with home inhaler regimen 7. Depression; Cymbalta 60 mg by mouth daily at bedtime 8. Left leg wound, sent for wound culture, wound consult . Unasyn 9. Left arm swelling and tenderness. Check ultrasound and x-ray 10.New spontaneous Distal radius fracture, no trauma. And clear etiology DVT prophylaxis; SCDs/subcu heparin CODE STATUS; full code
[2020-09-04] MEDS ORDERED: WARFARIN 1 MG TAB PO ONE (18:00)
[2020-09-04] MEDS: LATANOPROST 0.005% OPHTH DROPS 2.5 ML BTL BOTH EYES SCH (21:32)
[2020-09-04] MEDS: DULoxetine HCL 60 MG CAPSULE.DR PO SCH (21:32)
[2020-09-04] MEDS: MONTELUKAST 10 MG TAB PO SCH (21:33)
[2020-09-05] MEDS: oxyCODONE-APAP 10-325MG 1 EACH TAB PO PRN ×2 (03:13→09:06)
[2020-09-05] MEDS: SODIUM CHLORIDE 0.9% 1,000 ML IV SCH (03:58)
[2020-09-05] MEDS: AMPICILLIN-SULBACTAM 3 GM in SODIUM CHLORIDE 0.9% 100 ML IVPB SCH ×2 (05:56→11:39)
[2020-09-05 06:27] LABS: Prothrombin Time 29.1 sec (9.0-12.0)
[2020-09-05] MEDS: BUDESONIDE 0.5 MG/2 ML NEBU INHALATION SCH (08:07)
[2020-09-05] MEDS: GABAPENTIN 300 MG CAP PO SCH (09:01)
[2020-09-05] MEDS: ISOSORBIDE MONONITRATE ER 60 MG TAB.ER.24H PO SCH (09:02)
[2020-09-05] MEDS: METOPROLOL TARTRATE 25 MG TAB PO SCH ×2 (09:02→14:54)
[2020-09-05] MEDS: SUCRALFATE 1 GM TAB PO SCH (09:02)
[2020-09-05] MEDS: PANTOPRAZOLE 40 MG TABLET PO SCH (09:02)
[2020-09-05] MEDS: CALCIUM CARB-VIT D 500 MG-5 MCG TAB PO SCH ×2 (09:02→11:39)
--- NOTE | 2020-09-05 10:30 | P.PN ---
<Avani Travis - Last Filed: 09/05/20 10:26> Subjective Progress Note Date: 09/05/20 CHIEF COMPLAINT: Abdominal pain HISTORY OF PRESENT ILLNESS: Surgical services following in regards to patient's diverticulitis. Patient denies any abdominal pain. Denies any nausea or vomiting. Patient is complaining that her stools are becoming more small and hard since she started the Percocets. She is requesting a stool softener. No evidence of blood in the stools. She is tolerating low fiber diet. Orthopedics have placed her left wrist in a splint. Afebrile. INR 3.0 PHYSICAL EXAM: VITAL SIGNS: Reviewed. GENERAL: Well-developed in no acute distress. HEENT: No sclera icterus. Extraocular movements grossly intact. Moist buccal mucosa. Head is atraumatic, normocephalic. ABDOMEN: Soft. Nondistended. Nontender. NEUROLOGIC: Alert and oriented. Cranial nerves II through XII grossly intact. ASSESSMENT: 1. Acute diverticulitis of the mid sigmoid colon. Improved 2. Prior diverticulitis infection in February 3. Atrial fibrillation anticoagulated with Coumadin 4. Hypomagnesemia improved with supplement PLAN: -Continue conservative management -Continue low fiber diet -Continue antibiotics per ID -Add Colace 100 mg twice a day -From surgical standpoint patient is stable for discharge when medically cleared -Orthopedics following patient's left wrist pain and swelling Physician Transportation Officer note has been reviewed by physician. Signing provider agrees with the documented findings, assessment, and plan of care. Objective - Vital Signs Vital signs: Vital Signs Temp 97.7 F 09/05/20 01:04 Pulse 102 H 09/05/20 09:07 Resp 20 09/05/20 09:07 BP 120/75 09/05/20 09:07 Pulse Ox 98 09/05/20 09:07 Intake & Output 09/04/20 09/05/20 09/05/20 18:59 06:59 18:59 Intake Total 950 Balance 950 Weight 90.718 kg Intake: Intake, IV Titration 950 Amount Ampicillin-Sulbactam 3 gm 200 In Sodium Chloride 0.9% 100 ml @ 200 mls/hr IVPB Q6HR [facility] Rx#:[id number] Sodium Chloride 0.9% 1, 750 000 ml @ 75 mls/hr IV . [id number] [facility] Rx#:[id number] Other: Voiding Method Toilet # Voids 4 1 # Bowel Movements 1 - Labs CBC & Chem 7: 09/03/20 06:02 09/03/20 06:02 Labs: Abnormal Lab Results - Last 24 Hours (Table) 09/05/20 Range/Units 05:48 PT 29.1 H (9.0-12.0) sec INR 3.0 H (<1.2) <Edgardo Mancuso - Last Filed: 09/05/20 12:57> Subjective As above. Patient's diverticulitis is continue to improve. No surgical intervention at this point. Continue stool softeners and antibiotics. We'll sign off at this point. Follow-up in office as needed Objective - Vital Signs Vital signs: Vital Signs Temp 97.7 F 09/05/20 01:04 Pulse 102 H 09/05/20 09:07 Resp 20 09/05/20 10:25 BP 120/75 09/05/20 09:07 Pulse Ox 98 09/05/20 09:07 Intake & Output 09/04/20 09/05/20 09/05/20 18:59 06:59 18:59 Intake Total 950 Balance 950 Weight 90.718 kg Intake: Intake, IV Titration 950 Amount Ampicillin-Sulbactam 3 gm 200 In Sodium Chloride 0.9% 100 ml @ 200 mls/hr IVPB Q6HR [facility] Rx#:[id number] Sodium Chloride 0.9% 1, 750 000 ml @ 75 mls/hr IV . [id number] [facility] Rx#:[id number] Other: Voiding Method Toilet # Voids 4 1 # Bowel Movements 1 - Labs CBC & Chem 7: 09/03/20 06:02 09/03/20 06:02 Labs: Abnormal Lab Results - Last 24 Hours (Table) 09/05/20 Range/Units 05:48 PT 29.1 H (9.0-12.0) sec INR 3.0 H (<1.2)
[2020-09-05] MEDS ORDERED: DOCUSATE 100 MG CAP PO SCH (10:45)
--- NOTE | 2020-09-05 12:34 | P.PN ---
Progress Note - Text Progress Note Date: 09/05/20 Orthopedics: History of present illness: Patient is a very pleasant 85-year-old female who is seen and examined at the bedside in regards to her left upper extremity. Patient originally presented to the emergency department on 08/31/2020 for abdominal pain and was diagnosed with diverticulitis. She has continued with further treatment evaluation since that time. Her diverticulitis has continued to improve. Since her admission she did start experiencing some left upper extremity pain and swelling. Multiple imaging modalities were taken of her left upper extremity including x-ray and ultrasound. Ultrasound was negative for DVT or fluid collection. She was diagnosed with a possible left distal radius fracture. Radiology did not specifically see evidence of distal radius fracture but states they see evidence of a left distal thumb fracture. She does have significant degenerative changes at her left wrist. Patient was fitted with a splint for the left upper extremity yesterday. Since that time she feels her pain is much better co ntrolled. She has less swelling at the left upper extremity. She was having swelling at the left elbow and extending through the hand and fingers. She has significantly less swelling at her left forearm. She does not have specific pinpoint pain today at her left upper extremity. She states she has generalized pain about her left wrist and all of the MCP joints of the left hand. She is not complaining of any distal thumb pain but does have some pain at the base of her left thumb. She does have a history of rheumatoid arthritis. She underwent significant workout without specific findings. She feels her pain is and we controlled until she could manage at home. She does admit to recent surgical intervention at her right wrist performed by Dr. Arturo Birch and has continued to improve in that regard. She states again at the bedside today she has not sustained any injuries to her left upper extremity during her admission to the hospital. She continues to avoid excessive activities with the left upper extremity. Patient's other medical diagnoses include anemia, hyperlipidemia, hypertension, COPD, depression, and left lower extremity leg wound. Patient is currently on Unasyn. Physical Exam: Patient is awake, alert, and oriented 3 Vital signs stable Good chest excursion with deep inspiration and expiration Splint over the left upper extremity is intact; splint is removed and reapplied during physical examination Mild general swelling around the left elbow Patient is able to perform active flexion and extension of the left elbow without difficulty No significant swelling over the left forearm Continued swelling over the left hand and fingers most significant at the metacarpal phalangeal joints Mild generalized pain with palpation at the left wrist, base of the left thumb, and over the metacarpal phalangeal joints Neurovascularly intact left upper extremity Patient is able perform active range of motion of all fingers of the left hand w ithout difficulty No specific pain with palpation at the proximal portion of the distal phalanx of the left thumb Patient is able to perform active range of motion of the left thumb without difficulty No streaking Compartments are soft Patient is able to perform some active range of motion of the left wrist without significant difficulty Pertinent studies: X-rays of the left wrist and hand taken on 09/04/2020: Apparent nondisplaced fracture through the base of the distal phalanx of the thumb; severe bony demineralization of the left hand and left wrist with suboptimal evaluation for acute fracture; suggestive of severe osteoarthritis at the DIP joints and carpometacarpal joint space of the thumb; widening at the scapholunate interval Assessment: Acute left wrist and hand pain and swelling Possible left distal radius fracture with lucency involving the radial styloid without displacement Severe arthritis of the carpometacarpal joint of the left thumb Apparent nondisplaced fractures through the base of the distal phalanx of the thumb Scapholunate widening Severe osteoarthritic to the DIP joints Severe bone demineralization of the left hand and wrist Left upper extremity swelling at the hand and wrist Left upper extremity swelling and pain of uncertain etiology without trauma Anemia Hyperlipidemia Hypertension COPD Depression Left lower extremity leg wound currently on antibiotics Plan: 1. Patient has continued to improve during her admission in regards to diverticulitis. Since her admission she has started to experience some left upper extremity swelling and pain without injury. She has had ultrasound and x- ray imaging performed of the left upper extremity. No evidence of DVT was found. She was found to have generalized swelling and edema of the left wrist, hand, and upper extremity without fluid collection. X-ray imaging shows possible left distal radius fracture with lucency involving the radial styloid without displacement, severe arthritis of the carpometacarpal joint of the left thumb, possible nondisplaced fractures through the base of the distal phalanx of the thumb, scapholunate widening, severe osteoarthritic to the DIP joints, and severe bone demineralization of the left hand and wrist. She was fitted with a splint for the left upper extremity at the wrist yesterday and since that time her pain has improved. She has less swelling of the left upper extremity. Is very difficult to determine the cause of her increased swelling and pain in her left wrist and hand. She was experiencing distal radius pain yesterday but does not have significant distal radius pain today but has generalized pain about her left wrist. X-ray also shows evidence of apparent nondisplaced fracture to the base of the distal phalanx of the thumb but the patient is not currently experiencing any pain at this part of her thumb and is able to perform active range of motion without any significant difficulty. Most significantly she has pain over her metacarpal phalangeal joints of the left hand and at the carpometacarpal joint at the left thumb. She is able to perform active range of motion of the fingers of the left hand without significant difficulty today. She is happy with her progress as compared to yesterday. Nursing states the swelling has improved today as compared to yesterday as well. Patient feels her symptoms are currently well controlled and she could manage at home. She has continued to improve in regards her diverticulitis and feels she'll be ready for discharge home today. We discussed all her imaging including x-ray imaging and ultrasound in regards to her left upper extremity. Given her significant degenerative changes along with lack of trauma and along with imaging showing some evidence of fracture, it is difficult to determine the cause of the acute onset of her symptoms. We discussed we are currently planning to continue conservative treatment. She will continue with bracing for the left wrist. We discussed she could perform light activities with the fingers of her left hand but should avoid any heavy lifting with the left upper extremity. Patient feels this is a good plan of care. Medicine may be planning to discharge the patient home today. We did discuss we'll plan to have the patient follow-up this coming 09/08/2020, or 09/09/2020, for further evaluation with Dileep Park PA-C or Dr. Jose Eduardo Oliveira at [facility]. We did discuss if she has any significant exacerbation of her symptoms regards to her left wrist, hand, or upper extremity she is advised to call the office to discuss her symptoms and/or return to the emergency department for further evaluation. 2. Patient will continue with further treatment and evaluation by medicine for other medical diagnoses diverticulitis and left lower extremity leg wound
[2020-09-05] MEDS ORDERED: oxyCODONE-APAP 5-325MG 1 EACH TAB PO PRN (13:46)
[2020-09-05 14:43] VITALS: BP 124/67; PULSE 90; RESP 18; TEMP 98.4
--- NOTE | 2020-09-05 17:47 | PN ---
PROGRESS NOTE DATE OF SERVICE: 09/05/2020 REASON FOR FOLLOWUP: 1. Diverticulitis. 2. Left leg wound with MSSA infection. INTERVAL HISTORY: Patient is currently afebrile. The patient is breathing comfortably. The patient denies having any chest pain. No shortness breath or cough. No nausea, vomiting. Abdominal pain is currently controlled. No pain to the left lower extremity or any diarrhea. PHYSICAL EXAMINATION: Blood pressure 124/67, pulse of 90, temperature 98.4. She is 99% on room air. General description is an elderly female up in the bed in no distress. HEENT: Examination shows no pallor or scleral icterus. LUNGS: Unlabored breathing. Clear to auscultation anteriorly. HEART: S1, S2. Regular rate and rhythm. ABDOMEN: Soft. No tenderness. Left leg is currently dressed up. No obvious drainage on the dressing. LAB: DIAGNOSTIC IMPRESSION AND PLAN: Patient admitted to the hospital with acute diverticulitis with evidence of left leg wound traumatic and secondary cellulitis culture positive for MSSA and she did well on Unasyn, finishing therapy. Finish therapy with oral Augmentin 1 week. Local wound care with dry Aquacel dressing. Follow up in the [facility] in 1 week. MMODL / IJN: [id number] /
[2020-09-05] MEDS ORDERED: WARFARIN 5 MG TAB PO SCH (18:00)
[2020-09-05] MEDS ORDERED: WARFARIN 1.5 MG TAB PO ONE (18:00)
[2020-09-05] MEDS ORDERED: WARFARIN 2.5 MG TAB PO ONE (18:00)
[2020-09-05] MEDS ORDERED: WARFARIN 2.5 MG TAB PO SCH (18:00)
--- NOTE | 2020-09-05 22:59 | P.DS ---
Providers Date of admission: 08/31/20 15:48 Attending physician: Lary Dang MD Consults: 09/01/20 22:24 Consult Physician Routine Consulting Provider: Edgardo Mancuso Consult Reason/Comments: diverticulitis Do you want consulting provider notified?: Yes, Notify in am 09/02/20 09:01 Consult Physician Urgent Consulting Provider: Flower Salas Consult Reason/Comments: staph in wound culture Do you want consulting provider notified?: Yes 09/04/20 06:29 Consult Physician Urgent Consulting Provider: Monique Oliveira Consult Reason/Comments: Joint swelling Do you want consulting provider notified?: Yes Primary care physician: Chalo Cm [place] [facility] Course: Diagnoses: Acute diverticulitis, completely resolved and cleared by surgeon for discharge Left leg wound secondary to MSSA, and discharged on antibiotics and cleared by infectious disease team Possible left wrist fracture, placed on splint, cleared by orthopedic team for discharge with close outpatient follow-up Chronic A. fib on Coumadin with therapeutic INR. Rate is controlled Hypertension Hyperlipidemia History of depression, not an active issue Hospital course: 85-year-old female, history of COPD/asthma, hypertension, hyperlipidemia and DVT, history of A. fib on Coumadin. presenting to the emergency Department with complaints of abdominal discomfort. On to have acute diverticulitis. CT of the abdomen and pelvis, she was treated with antibiotics with surgical team consult with her surgeon Dr. Mancuso patient showed interval improvement in her abdominal pain completely resolved for the last 2 days, tolerating diet and having regular bowel movements. Left leg wound grew MSSA, patient transported to antibiotic with Zosyn and Unasyn for both diverticulitis and left leg infection . Patient was discharge on oral antibiotic Augmentin for 10 days Patient was on well until 2 days ago suddenly developed left wrist pain and swelling without history of trauma, and twisting or any similar event, it happened spontaneously. Left wrist and hand x-ray: Nondisplaced fracture through the proximal portion of the distal phalanx of the first digit extending into the DIP joint, severe bony demineralization, severe osteoarthritis of the DIP joints, widening of the scapholunate interval suggestive of scapholunate dislocation. orthopedic team consult was obtained and the recommend to treat the fracture conservatively with splint. On the day of discharge and symptoms improved except for left wrist swelling and tenderness however it was stabilized and it was improving as well with less swelling and tenderness compelled to when day earlier. Patient was eager to be discharged home today. Patient was adamant not to go to rehab, and she said she agrees to go home with home health care. Risks including but not limited to fall and bleeding while on Coumadin are explained to her she verbalized understanding, but she still wants to go home Patient INR today was 3, she supposed to take Coumadin 2.5 mg today however it was lowered to 1.5 mg, patient was instructed to resume her home dose of Coumadin tomorrow, she verbalized understanding and acceptance, she told me she has her on INR machine and she agrees to check it every 2 days as instructed, she told me usually she follows up with Dr. Trotter about her Coumadin dose adjustment. Patient was instructed to hold Coumadin if more than 3 or signs of bleeding and she agrees. Patient was cleared for discharge by all consultants including surgery, infectious disease and orthopedic team's Problems and management plan were discussed with the patient and he verbalized understanding and acceptance Patient was found stable and can be discharged home in guarded prognosis however he needs follow-up as an outpatient. Patient was instructed to follow up with PCP Dr. Cm within one week and patient agrees with appointment made with her on 09/10. Also patient agrees with appointment made for her with KEITH Falk on 09/08. And with Dr. Cantu her surgeon on 09/17, with Dr. Muñoz on 09/16 and states she will follow up Physical exam Gen: patient is a AAOx3, no distress CVS: S1-S2, RRR, no murmur Lungs: B/L CTA, no wheezing Abdomen: soft, no distention, no tenderness, positive bowel sounds Extremity: no leg edema or induration. Left wrist swelling and tenderness, improving. Splint is in a Place. Left leg wound and cellulitis improving significantly, dressing is in place Time spent more than 35 minutes Patient Condition at Discharge: Good Plan - Discharge Summary Discharge Rx Participant: No New Discharge Prescriptions: New Amoxicillin/Potassium Clav [Augmentin 875-125 Tablet] 1 tab PO Q12HR 10 Days #20 tab Calcium Carb-Vit D 500Mg-5Mcg [Oscal 500+D 5 Mcg (200 Iu)] 1 each PO TID- W/MEALS 30 Days #90 tab oxyCODONE-APAP 5-325MG [Percocet 5-325 mg] 1 each PO Q6HR PRN 3 Days #12 tab PRN Reason: Pain Docusate [Colace] 100 mg PO BID #60 cap Continue Isosorbide Mononitrate [Imdur] 60 mg PO DAILY Bimatoprost [Lumigan .01% Ophth Soln] 1 drop BOTH EYES HS Montelukast [Singulair] 10 mg PO HS allopurinoL [Zyloprim] 100 mg PO BID Omeprazole 20 mg PO BID Budesonide [Pulmicort] 0.5 mg INHALATION RT-BID DULoxetine HCL [Cymbalta] 60 mg PO HS Nitroglycerin Sl Tabs [Nitrostat] 0.4 mg SUBLINGUAL Q5M PRN PRN Reason: Chest Pain Denosumab [Prolia] 60 mg SQ Q180D Multivitamins, Thera [Multivitamin (formulary)] 1 tab PO DAILY Folic Acid 1 mg PO DAILY Warfarin [Coumadin] 2.5 mg PO FR@1800 Famotidine [Pepcid] 20 mg PO DAILY tab Gabapentin [Neurontin] 600 mg PO BID #6 tab Sucralfate [Carafate] 1 gm PO DAILY Cholecalciferol [Vitamin D3 (25 Mcg = 1000 Iu)] 25 mcg PO DAILY Metoprolol Tartrate [Lopressor] 25 mg PO TID metHOTREXate sodium [Methotrexate] 25 mg PO FR Warfarin [Coumadin] 5 mg PO SUMOTUWETHSA@1800 Atorvastatin [Lipitor] 20 mg PO HS Discontinued hydroCHLOROthiazide 25 mg PO DAILY Calcium Carbonate [Calcium] 600 mg PO DAILY Discharge Medication List Bimatoprost [Lumigan .01% Ophth Soln] 1 drop BOTH EYES HS 11/07/13 [History] Isosorbide Mononitrate [Imdur] 60 mg PO DAILY 11/07/13 [History] Montelukast [Singulair] 10 mg PO HS 11/07/13 [History] allopurinoL [Zyloprim] 100 mg PO BID 07/09/14 [History] Budesonide [Pulmicort] 0.5 mg INHALATION RT-BID 03/29/16 [History] Omeprazole 20 mg PO BID 03/29/16 [History] DULoxetine HCL [Cymbalta] 60 mg PO HS 11/22/18 [History] Denosumab [Prolia] 60 mg SQ Q180D 02/10/20 [History] Folic Acid 1 mg PO DAILY 02/10/20 [History] Multivitamins, Thera [Multivitamin (formulary)] 1 tab PO DAILY 02/10/20 [History] Nitroglycerin Sl Tabs [Nitrostat] 0.4 mg SUBLINGUAL Q5M PRN 02/10/20 [History] Warfarin [Coumadin] 2.5 mg PO FR@1800 03/07/20 [History] Famotidine [Pepcid] 20 mg PO DAILY tab 03/11/20 [Rx] Gabapentin [Neurontin] 600 mg PO BID #6 tab 03/11/20 [Rx] Atorvastatin [Lipitor] 20 mg PO HS 08/31/20 [History] Cholecalciferol [Vitamin D3 (25 Mcg = 1000 Iu)] 25 mcg PO DAILY 08/31/20 [History] Metoprolol Tartrate [Lopressor] 25 mg PO TID 08/31/20 [History] Sucralfate [Carafate] 1 gm PO DAILY 08/31/20 [History] Warfarin [Coumadin] 5 mg PO SUMOTUWETHSA@1800 08/31/20 [History] metHOTREXate sodium [Methotrexate] 25 mg PO FR 08/31/20 [History] Amoxicillin/Potassium Clav [Augmentin 875-125 Tablet] 1 tab PO Q12HR 10 Days #20 tab 09/05/20 [Rx] Calcium Carb-Vit D 500Mg-5Mcg [Oscal 500+D 5 Mcg (200 Iu)] 1 each PO TID-W/MEALS 30 Days #90 tab 09/05/20 [Rx] Docusate [Colace] 100 mg PO BID #60 cap 09/05/20 [Rx] oxyCODONE-APAP 5-325MG [Percocet 5-325 mg] 1 each PO Q6HR PRN 3 Days #12 tab 09/05/20 [Rx] Follow up Appointment(s)/Referral(s): Edgardo Mancuso MD [Medical Doctor] - 09/17/20 2:45 pm Enzo Trotter MD [STAFF PHYSICIAN] - 09/16/20 1:15 pm (Appointment at [facility] [place]. ) Dileep Park PAC [PHYSICIAN DIRECTOR EHS] - 09/08/20 2:45 pm (Patient may follow-up with Dileep Park PA-C or Dr. Jose Eduardo Oliveira at [facility] on 09/08/2020, or 09/09/2020, following discharge. ) Chalo Cm DO [Primary Care Provider] - 09/10/20 2:[address] [facility], [REFERRING] - 1 Week Flower Salas MD [STAFF PHYSICIAN] - 1 Week Bob Avina [NON-STAFF] - Activity/Diet/Wound Care/Special Instructions: Continue diet as tolerated. fluids are encouraged. continue medications as directed. Follow up with physicians as directed. Appointments have been made for you. Call physicians with any questions comments concerns worsening returning symptoms, fever, not tolerating diet or fluids, pain not controlled by medications prescribed to you. Follow directions from orthopaedics for the wrist and hand. Do not drive on narcotic pain medications. See wound center on Tuesday to change dressing. If you do not hear from them Call them on Tuesday. Call physician with any questions comments concerns worsening returning or worsening symptoms, fever 101 or higher, not tolerating diet or fluids, pain not controlled by the medications prescribed, worsening wound, worsening left arm. 1. Keep splint for the left upper extremity intact; splint may be removed for bathing 2. Elevate the left upper extremity for comfort and support and to help with swelling 3. Patient may apply ice over the left upper extremity for comfort support as needed 4. Patient may perform light activities with her left wrist and hand 5. No excessive lifting with the left upper extremity We recommend if you has any significant exacerbation of your symptoms regards to your left wrist, hand, or upper extremity, you are advised to call the office to discuss your symptoms and/or return to the emergency department for further evaluation. Orders from [facility] (wound center) Apply Honey alginate, saline moistened gauze, dry gauze, rolled gauze secured with paper tape. Change Tuesday, Tuesday, Tuesday. Last changed 09/05/2020 Discharge Disposition: HOME SELF-CARE
== END 2020-09-05 16:38 | disposition home or self-care (01) | DRG 392 ==
LOC: EC 12:30 → 5NMEDONC 15:48 → 6PED 16:11
PROVIDERS: ADMIT Internal Medicine; ATTEND Internal Medicine
PROC: 2W39X1Z Immobilization of Left Upper Extremity using Splint (ICD-10-PCS; principal; 2020-08-31)
DX: K57.32 Diverticulitis of large intestine without perforation or abscess without bleeding (principal); S52.509A Unspecified fracture of the lower end of unspecified radius, initial encounter for closed fracture; L03.116 Cellulitis of left lower limb; L97.922 Non-pressure chronic ulcer of unspecified part of left lower leg with fat layer exposed; I48.20 Chronic atrial fibrillation, unspecified; I80.9 Phlebitis and thrombophlebitis of unspecified site; J44.9 Chronic obstructive pulmonary disease, unspecified; K59.00 Constipation, unspecified; M06.9 Rheumatoid arthritis, unspecified; B95.61 Methicillin susceptible Staphylococcus aureus infection as the cause of diseases classified elsewhere; D64.9 Anemia, unspecified; E78.5 Hyperlipidemia, unspecified; E83.42 Hypomagnesemia; E86.0 Dehydration; F32.9 Major depressive disorder, single episode, unspecified; I10 Essential (primary) hypertension; Z79.01 Long term (current) use of anticoagulants; M19.90 Unspecified osteoarthritis, unspecified site; M81.0 Age-related osteoporosis without current pathological fracture; H40.9 Unspecified glaucoma; S62.523A Displaced fracture of distal phalanx of unspecified thumb, initial encounter for closed fracture; S81.812A Laceration without foreign body, left lower leg, initial encounter; Z79.899 Other long term (current) drug therapy; M10.9 Gout, unspecified; Z20.822 Contact with and (suspected) exposure to COVID-19; Z80.8 Family history of malignant neoplasm of other organs or systems; Z86.16 Personal history of COVID-19; Z86.718 Personal history of other venous thrombosis and embolism; Z87.891 Personal history of nicotine dependence; Z96.651 Presence of right artificial knee joint; Z90.49 Acquired absence of other specified parts of digestive tract; Z90.89 Acquired absence of other organs; Z98.51 Tubal ligation status; M50.30 Other cervical disc degeneration, unspecified cervical region; Z98.42 Cataract extraction status, left eye; Z98.41 Cataract extraction status, right eye; Z79.82 Long term (current) use of aspirin; Z80.7 Family history of other malignant neoplasms of lymphoid, hematopoietic and related tissues; Z80.9 Family history of malignant neoplasm, unspecified; Z79.51 Long term (current) use of inhaled steroids; Z88.8 Allergy status to other drugs, medicaments and biological substances
CPT/HCPCS: 36410; 36415; 74177; 76937; 80048; 80053; 81001; 82150; 83690; 83735; 84550; 85025; 85610; 85730; 86140; 87070; 87075; 87077; 87186; 87205; 87324; 87635; 94640; 96374; 96375; 99285

== ENCOUNTER 2021-08-25 08:26 | Inpatient (IN) | payer MEDICARE ==
--- NOTE | 2021-08-25 08:51 | ED ---
General Adult HPI - General Chief complaint: GI Bleed Stated complaint: abd pain, rectal bleed Time Seen by Provider: 08/25/21 08:35 Source: patient, EMS, RN notes reviewed, old records reviewed Mode of arrival: EMS Limitations: no limitations - History of Present Illness Initial comments: 86-year-old female presenting from the longterm with suspected gastrointestinal bleeding. Patient is at the longterm for rehabilitation after recent coronavirus infection and pneumonia. Patient is currently on Coumadin and staff had noted significant bleeding in the patient's brief period patient herself does report lower abdominal pain. Staff had reported blood clots noted. - Related Data Home Medications Medication Instructions Recorded Confirmed Bimatoprost [Lumigan 0.01% Ophth 1 drop BOTH EYES HS@199911/07/13 08/25/21 Soln] Montelukast [Singulair] 10 mg PO HS@199911/07/13 08/25/21 allopurinoL [Zyloprim] 100 mg PO BID@0800,199907/09/14 08/25/21 Omeprazole 20 mg PO BID@0800,169903/29/16 08/25/21 DULoxetine HCL [Cymbalta] 60 mg PO HS@199911/22/18 08/25/21 Folic Acid 1 mg PO DAILY@79902/10/20 08/25/21 Multivitamins, Thera [Multivitamin 1 tab PO DAILY@169902/10/20 08/25/21 (formulary)] Nitroglycerin Sl Tabs [Nitrostat] 0.4 mg SUBLINGUAL Q5M PRN 02/10/20 08/25/21 Atorvastatin [Lipitor] 20 mg PO DAILY@169908/31/20 08/25/21 Metoprolol Tartrate [Lopressor] 25 mg PO BID@0800,169908/31/20 08/25/21 Acyclovir 400 mg PO BID@799,199908/03/21 08/25/21 Calcium Carbonate/Vitamin D3 1 cap PO DAILY@169908/03/21 08/25/21 [Calcium 600 mg-D3 10 Mcg (400 Iu)] Docusate [Colace] 100 mg PO DAILY@79908/03/21 08/25/21 Famotidine [Pepcid] 20 mg PO DAILY@0808/03/21 08/25/21 Potassium Chloride ER [K-Dur 10] 10 meq PO DAILY@79908/03/21 08/25/21 Psyllium Husk 100% [Metamucil 6 gm PO DAILY@79908/03/21 08/25/21 Packet] ondansetron HCL [Zofran] 8 mg PO Q6H PRN 08/03/21 08/25/21 Ascorbic Acid [Vitamin C] 1,000 mg PO DAILY@169908/25/21 08/25/21 Budesonide-Formot 160-4.5 Mcg 2 puff INHALATION RT-BID@0800,169908/25/21 08/25/21 [Symbicort 160-4.5 Mcg Inhaler] Cholecalciferol [Vitamin D3 (125 125 mcg PO DAILY@169908/25/21 08/25/21 Mcg = 5000 Iu)] Enoxaparin [Lovenox] 150 mg SQ DAILY@169908/25/21 08/25/21 Furosemide [Lasix] 60 mg PO DAILY@79908/25/21 08/25/21 Gabapentin [Neurontin] 400 mg PO BID@0800,209908/25/21 08/25/21 HYDROcodone/APAP 5-325MG [[place] 1 tab PO Q6H PRN 08/25/21 08/25/21 5-325] Magnesium Hydroxide [Milk of 2,400 mg PO Q48H PRN 08/25/21 08/25/21 Magnesia] Na Phos,M-B/Na Phos,Di-Ba [Fleet 133 ml RECTAL DAILY PRN 08/25/21 08/25/21 Adult] Sodium Bicarbonate Tab 650 mg PO BID@0800,169908/25/21 08/25/21 Tiotropium 2.5 Mcg/Puff [Spiriva 2 puff INHALATION RT-DAILY@79908/25/21 08/25/21 Respimat 2.5 Mcg] Warfarin [Coumadin] 2.5 mg PO HS@209908/25/21 08/25/21 Zinc Gluconate [Zinc] 50 mg PO DAILY@169908/25/21 08/25/21 bisacodyL [Dulcolax] 10 mg RECTAL DAILY PRN 08/25/21 08/25/21 predniSONE See Taper PO DAILY 08/25/21 08/25/21 Previous Rx's Medication Instructions Recorded Acetaminophen Tab [Tylenol] 650 mg PO Q6HR PRN tab 08/19/21 Albuterol Inhaler [Ventolin Hfa 2 puff INHALATION RT-Q2H PRN gm 08/19/21 Inhaler] Albuterol Inhaler [Ventolin Hfa 2 puff INHALATION RT-QID gm 08/19/21 Inhaler] guaiFENesin-DM 100-10MG/5ML 10 ml PO Q6HR PRN ml 08/19/21 [Robitussin DM] hydrALAZINE HCL [Apresoline] 25 mg PO QID PRN tab 08/19/21 Allergies Allergy/AdvReac Type Severity Reaction Status Date / Time LUNA Inhibitors AdvReac Cough Verified 08/25/21 08:54 IV STEROIDS Allergy Itching Uncoded 08/25/21 08:36 tape Allergy Unknown Uncoded 08/25/21 08:36 Review of Systems ROS Statement: Those systems with pertinent positive or pertinent negative responses have been documented in the HPI. ROS Other: All systems not noted in ROS Statement are negative. Past Medical History Past Medical History: Asthma, Cancer, COPD, Deep Vein Thrombosis (DVT), Hyperlipidemia, Hypertension, Osteoarthritis (OA), Rheumatoid Arthritis (RA), Skin Disorder Additional Past Medical History / Comment(s): Hx. 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 RIGHT KNEE REPLACEMENT X 2., shoulder surgeries , hiatal hernia repair, I&D L inguinal abscess, right wrist surgery Past Anesthesia/Blood Transfusion Reactions: No Reported Reaction Type of Cardiac Device: Permanent Pacemaker Device Placement Date:: October 2012 Past Psychological History: No Psychological Hx Reported Smoking Status: Former smoker Past Alcohol Use History: None Reported Past Drug Use History: None Reported - Past Family History Father Additional Family Medical History / Comment(s): Father pulmonary fibrosis Mother Family Medical History: Cancer Sister(s) Additional Family Medical History / Comment(s): melanoma General Exam Limitations: no limitations General appearance: alert, in no apparent distress Head exam: Present: atraumatic, normocephalic Eye exam: Present: normal appearance, PERRL ENT exam: Present: mucous membranes dry Neck exam: Present: normal inspection. Absent: tenderness, meningismus Respiratory exam: Present: respiratory distress, rhonchi, decreased breath sounds Cardiovascular Exam: Present: regular rate, normal rhythm GI/Abdominal exam: Present: soft, distended, tenderness (Suprapubic tenderness to palpation). Absent: guarding Rectal exam: Present: normal inspection, normal rectal tone. Absent: black stool, bloody stool Speculum exam: Present: vaginal bleeding (External exam does reveal some dried blood. ) Neurological exam: Present: alert. Absent: motor sensory deficit Skin exam: Present: warm, dry, intact. Absent: cyanosis, diaphoretic Course Vital Signs 08/25/21 08:28 Temperature 98.0 F Pulse Rate 98 Respiratory 18 Rate Blood Pressure 113/83 O2 Sat by Pulse 99 Oximetry EKG Findings - EKG Comments: EKG Findings:: EKG: H fibrillation with bundle-branch block, rate of 94, QRS duration 157, QTC [address] segment elevation. Medical Decision Making - Medical Decision Making 86-year-old female presenting for evaluation of increased abdominal pain and what was initially thought to be rectal bleeding. There was dried blood within the labia. The rectal exam was showing brown stool with no rectal bleeding. She did have significant lower abdominal tenderness. Ultrasound of the pelvic organs was ordered however this was unable to visualize the uterus secondary to abdominal wall hematoma. CT was repeated which did show a large pelvic and abdominal wall hematoma which has likely rebleeding. Her INR is 2.3. She has anemia however this hemoglobin does seem stable from prior. Hemodynamics remained stable in the emergency department. She will be admitted to EMS. Dr. Leal is available to evaluate the patient emergency department he is familiar with this patient from her recent admission I will place general surgery on consult who is also familiar with this patient, Dr. Mancuso who is aware of patient. - Lab Data Result diagrams: 08/25/21 08:50 08/25/21 08:50 Lab Results 08/25/21 08/25/21 08/25/21 Range/Units 08:50 08:50 08:50 WBC 16.5 H (3.8-10.6) k/uL RBC 2.66 L (3.80-5.40) m/uL Hgb 8.2 L D (11.4-16.0) gm/dL Hct 25.8 L (34.0-46.0) % MCV 97.1 (80.0-100.0) fL MCH 30.9 (25.0-35.0) pg MCHC 31.8 (31.0-37.0) g/dL RDW 20.1 H (11.5-15.5) % Plt Count 214 (150-450) k/uL MPV 8.2 Neutrophils % 91 % Lymphocytes % 5 % Monocytes % 3 % Eosinophils % 1 % Basophils % 0 % Neutrophils # 15.1 H (1.3-7.7) k/uL Lymphocytes # 0.8 L (1.0-4.8) k/uL Monocytes # 0.5 (0-1.0) k/uL Eosinophils # 0.1 (0-0.7) k/uL Basophils # 0.0 (0-0.2) k/uL Hypochromasia Moderate Poikilocytosis Slight Anisocytosis Moderate Macrocytosis Slight PT 23.0 H (9.0-12.0) sec INR 2.3 H (<1.2) APTT 32.3 H (22.0-30.0) sec Sodium 135 L (137-145) mmol/L Potassium 3.6 (3.5-5.1) mmol/L Chloride 101 (98-107) mmol/L Carbon Dioxide 31 H (22-30) mmol/L Anion Gap 3 mmol/L BUN 27 H (7-17) mg/dL Creatinine 0.85 (0.52-1.04) mg/dL Est GFR (CKD-EPI)AfAm 73 (>60 ml/min/1.73 sqM) Est GFR (CKD-EPI)NonAf 63 (>60 ml/min/1.73 sqM) Glucose 104 H (74-99) mg/dL Plasma Lactic Acid Lalit (0.7-2.0) mmol/L Calcium 9.3 (8.4-10.2) mg/dL Magnesium 1.5 L (1.6-2.3) mg/dL Total Bilirubin 1.1 (0.2-1.3) mg/dL AST 36 (14-36) U/L ALT 28 (4-34) U/L Alkaline Phosphatase 101 (38-126) U/L Total Protein 5.4 L (6.3-8.2) g/dL Albumin 3.0 L (3.5-5.0) g/dL Blood Type Blood Type Recheck Bld Type Recheck Status Antibody Screen Spec Expiration Date 08/25/21 08/25/21 Range/Units 08:50 09:26 WBC (3.8-10.6) k/uL RBC (3.80-5.40) m/uL Hgb (11.4-16.0) gm/dL Hct (34.0-46.0) % MCV (80.0-100.0) fL MCH (25.0-35.0) pg MCHC (31.0-37.0) g/dL RDW (11.5-15.5) % Plt Count (150-450) k/uL MPV Neutrophils % % Lymphocytes % % Monocytes % % Eosinophils % % Basophils % % Neutrophils # (1.3-7.7) k/uL Lymphocytes # (1.0-4.8) k/uL Monocytes # (0-1.0) k/uL Eosinophils # (0-0.7) k/uL Basophils # (0-0.2) k/uL Hypochromasia Poikilocytosis Anisocytosis Macrocytosis PT (9.0-12.0) sec INR (<1.2) APTT (22.0-30.0) sec Sodium (137-145) mmol/L Potassium (3.5-5.1) mmol/L Chloride (98-107) mmol/L Carbon Dioxide (22-30) mmol/L Anion Gap mmol/L BUN (7-17) mg/dL Creatinine (0.52-1.04) mg/dL Est GFR (CKD-EPI)AfAm (>60 ml/min/1.73 sqM) Est GFR (CKD-EPI)NonAf (>60 ml/min/1.73 sqM) Glucose (74-99) mg/dL Plasma Lactic Acid Lalit 1.7 (0.7-2.0) mmol/L Calcium (8.4-10.2) mg/dL Magnesium (1.6-2.3) mg/dL Total Bilirubin (0.2-1.3) mg/dL AST (14-36) U/L ALT (4-34) U/L Alkaline Phosphatase (38-126) U/L Total Protein (6.3-8.2) g/dL Albumin (3.5-5.0) g/dL Blood Type O Positive Blood Type Recheck O Pos Bld Type Recheck Status No Antibody Screen NEGATIVE Spec Expiration Date 08/28/20212349 Disposition Clinical Impression: Abdominal wall hematoma, Acute hemorrhage Disposition: ADMITTED IP TO THIS HOSP Condition: Stable Is patient prescribed a controlled substance at d/c from ED?: No Time of Disposition: 11:47
[2021-08-25] MEDS ORDERED: fentaNYL (PF) 50 MCG/ML 2 ML AMP IVP STA (08:56)
--- NOTE | 2021-08-25 09:49 | US ---
EXAMINATION TYPE: US pelvic complete DATE OF EXAM: 08/25/2021 COMPARISON: NONE CLINICAL HISTORY: 86-year-old female Vaginal bleeding. Diamond Saw Operator notes: The patient has rectus contreras th hematoma and bleeding but unknown if blood if from rectum versus vaginal. Patient in pain and any pelvic questions had answers of "I don't know." TECHNIQUE: Transabdominal sonographic images of the pelvis were acquired. TV imaging could not be done, patient declined, she is in too much pain and would not be able to get in position for TV exam Date of LMP: 30* years ago FINDINGS: Diamond Saw Operator notes: On recent CT, large hematomas were seen compressing on pelvic organs. US was unable to distinguish an y pelvic anatomy due to large hematomas. Patient could not tolerate TV approach. IMPRESSION: Unable to assess pelvic anatomy due to large abdominal wall hematomas. Patient declined transvaginal scanning due to pain.
[2021-08-25] MEDS ORDERED: HYDROmorphone 0.5 MG/0.5 ML SYRINGE IVP STA (09:57)
[2021-08-25 10:07] LABS: Anisocytosis Moderate; Basophils % (A) 0 %; Eosinophils # (A) 0.1 k/uL (0-0.7); Eosinophils % (A) 1 %; HCT 25.8 % (34.0-46.0); HGB 8.2 gm/dL (11.4-16.0); Hypochromasia Moderate; Lymphocytes # (A) 0.8 k/uL (1.0-4.8); Lymphocytes % (A) 5 %; MCH 30.9 pg (25.0-35.0); MCHC 31.8 g/dL (31.0-37.0); MCV 97.1 fL (80.0-100.0); Macrocytosis Slight; Mean Platelet Volume 8.2; Monocytes # (A) 0.5 k/uL (0-1.0); Monocytes % (A) 3 %; Neutrophils # (A) 15.1 k/uL (1.3-7.7); Neutrophils % (A) 91 %; Platelet Count 214 k/uL (150-450); Poikilocytosis Slight; RBC 2.66 m/uL (3.80-5.40); RDW 20.1 % (11.5-15.5); WBC 16.5 k/uL (3.8-10.6)
[2021-08-25 10:11] LABS: Calcium 9.3 mg/dL (8.4-10.2); Magnesium 1.5 mg/dL (1.6-2.3); Potassium 3.6 mmol/L (3.5-5.1); Total Bilirubin 1.1 mg/dL (0.2-1.3); Total Protein 5.4 g/dL (6.3-8.2)
[2021-08-25 10:56] LABS: INR 2.3 (<1.2); Partial Thromboplastin Time 32.3 sec (22.0-30.0)
--- NOTE | 2021-08-25 11:12 | CT ---
EXAMINATION TYPE: CT abdomen pelvis w con DATE OF EXAM: 08/25/2021 COMPARISON: CT dated 08/12/2021 HISTORY: Abd pain CT DLP: 2223.4 mGycm Automated exposure control for dose reduction was used. TECHNIQUE: Helical acquisition of images was performed from the lung bases through the pelvis. CONTRAST: Performed without Oral Contrast and with IV Contrast, patient injected with 100 mL of Isovue 300. FINDINGS: LUNG BASES: Mild pulmonary fibrotic changes and small left pleural effusion. Cardiomegaly with powers ry and arterial atherosclerotic calcifications. LIVER/GB: No definite hepatic focal lesion. Previous cholecystectomy. PANCREAS: Newly seen heterogeneous area along the anterior aspect of the first/second part of the duo denum measuring 2.1 x 3.2 x 3.8 cm, not well appreciated previously. This is seen along the lateral a spect of the pancreatic head, incompletely characterized and could represent a diverticulum that was not appreciated previously however other underlying abnormality at that location including contained perforation of a duodenal ulcer or focal inflammatory/infectious process cannot be excluded. Neoplast ic lesion is unlikely considering the relatively short interval. Grossly unremarkable remainder of th e pancreas. SPLEEN: No significant abnormality is seen. ADRENALS: No significant abnormality is seen. KIDNEYS: Bilateral renal hypodensities likely representing renal cysts. No hydroureter or hydronephro sis. FREE AIR: No free air is visualized. RETROPERITONEAL ADENOPATHY: None visualized REPRODUCTIVE ORGANS: No gross uterine or adnexal mass. URINARY BLADDER: Redemonstration of the previously seen heterogenous densities along the left side o f the lower anterior abdominal wall as well as in the right side of the pelvis, previously described as hematomas. The left-sided hematoma measures 16.5 cm compared to 14.9 cm previously. The right pelv ic hematoma measures 11.8 cm compared to 15.6 cm previously. Suspected right pelvic fluid/hematoma in separable from the right ovary. It is not possible to exclude underlying lesion at the sites of the h ematoma. Persistent compression of the urinary bladder by the right pelvic hematoma. A urinary bladde r wall hematoma cannot be excluded. Recommend correlation with urinalysis results. PELVIC ADENOPATHY: No pathologically enlarged pelvic lymph nodes. OSSEOUS STRUCTURES: Stable chronic fractures of the left superior and inferior pubic bones. Degenera tive changes of the lower thoracic and lumbar spine. BOWEL: Unremarkable stomach, and remainder of the duodenum and small bowel with no evidence of bowel obstruction. Uncomplicated colonic diverticulosis. No evidence of colonic obstruction. OTHER: Scattered arterial atherosclerotic calcifications. Right anterior abdominal wall subcutaneous air bubbles, please correlate for recent subcutaneous injections injection. IMPRESSION: 1. Apparently larger left anterior abdominal wall inferior hematoma suggestive of interval rebleeding , please correlate clinically. Slightly smaller right pelvic hematoma with still persistent heterogen eous texture, interval rebleeding cannot be excluded. Please note that underlying lesion in the descr ibed hematomas cannot be excluded. Persistent mass effect of the right pelvic hematoma on the urinary bladder. Recommend correlation with urinalysis results including cytology. 2. Newly seen heterogeneous area along the anterior aspect of the first/second part of the duodenum a s described above, not appreciated previously. This is nonspecific and could be related to duodenal d iverticulum that was not well appreciated previously however underlying contained perforation of a du odenal ulcer or other acute inflammatory/infectious process at that location cannot be excluded. Jeevan mmend clinical correlation and further workup. Other interval changes and incidental findings as desc ribed above.
[2021-08-25] MEDS ORDERED: NALOXONE 0.4 MG/ML 1 ML VIAL IV PRN (11:25)
[2021-08-25] MEDS ORDERED: PHYTONADIONE 5 MG in SODIUM CHLORIDE 0.9% 50 ML IVPB STA (11:25)
[2021-08-25] MEDS: SODIUM CHLORIDE 0.9% 1,000 ML IV SCH (11:58)
[2021-08-25 12:27] LABS: RBC,Urine >182 /hpf (0-5); Squamous Epithelial Cell,Urine 4 /hpf (0-4); WBC,Urine >182 /hpf (0-5)
[2021-08-25 12:28] LABS: Appearance,Urine Bloody (Clear)
[2021-08-25 12:29] LABS: Color,Urine Red
[2021-08-25] MEDS: HYDROmorphone 0.5 MG/0.5 ML SYRINGE IVP PRN ×3 (13:01→22:02)
[2021-08-25 16:15] LABS: Anisocytosis Moderate; Basophils % (A) 0 %; Eosinophils # (A) 0.2 k/uL (0-0.7); Eosinophils % (A) 2 %; HCT 24.4 % (34.0-46.0); HGB 7.5 gm/dL (11.4-16.0); Hypochromasia Marked; Lymphocytes # (A) 0.7 k/uL (1.0-4.8); Lymphocytes % (A) 4 %; MCH 30.7 pg (25.0-35.0); MCHC 30.8 g/dL (31.0-37.0); MCV 99.8 fL (80.0-100.0); Macrocytosis Moderate; Mean Platelet Volume 8.1; Monocytes # (A) 0.4 k/uL (0-1.0); Monocytes % (A) 2 %; Neutrophils # (A) 14.7 k/uL (1.3-7.7); Neutrophils % (A) 91 %; Platelet Count 187 k/uL (150-450); Poikilocytosis Slight; RBC 2.44 m/uL (3.80-5.40); RDW 20.6 % (11.5-15.5); WBC 16.1 k/uL (3.8-10.6)
[2021-08-25] MEDS ORDERED: ALBUTEROL NEBULIZED 2.5 MG/3 ML INHALATION PRN (21:59)
--- NOTE | 2021-08-25 22:40 | P.HPIM ---
History of Present Illness This is a pleasant 85 years old female with past medical history of deep venous thrombosis, rheumatoid arthritis that she follow-up with clinical documentation consultant, hyperlipidemia, hypertension, osteoarthritis, COPD. she was recently discharged from hospital after a prolonged stay Patient is fully awake and oriented in looks calm, little anxious, she states she has some blood in her underwear his parents this morning, she does not know how much and where was coming from and she was sent to the hospital from her ECF Patient also complained of from increasing left abdominal wall swelling and tenderness, it looks bigger than last admission. She denies any other specific symptoms, no dizziness, no chest pain or shortness of breath. No abdominal pain, no nausea vomiting or diarrhea, no vaginal complaints, no urinary complaints. Patient vitals stable, systolic blood pressure is 120 to 130s. She is a slightly tachycardic more than 90s. She has chronic leukocytosis, obesity is 16.1, hemoglobin 8.2, down to 7.5, hemoglobin dropped last admission was entered between 8-9. Platelet count is normal at 187. INR is 2.3 BMP is unremarkable, BUN is 27, creatinine 0.8. Magnesium 1.8. Urinalysis showing hematuria more than 182 and WBC more than 182. CT of the abdomen and pelvis with contrast showing heterogenous area of the first and second part of the duodenum 2.1 x 3.2 x 3.8 cm. Also there is increased pelvic and left abdominal wall hematoma 14.9 up to 16.5 and 11.8 up to 15.6 cm respectively. Also a possible urinary bladder hematoma. On admission she started on IV fluid, vitamin K 5 mg and pain medication. ER team also ordered blood Review of Systems CONSTITUTIONAL: No fever, no malaise, no fatigue. HEENT: No recent visual problems or hearing problems. Denied any sore throat. CARDIOVASCULAR: No orthopnea, PND, no palpitations, no syncope. PULMONARY: No shortness of breath, no cough, no hemoptysis. GASTROINTESTINAL: No diarrhea, no nausea, no vomiting. Normoactive bowel sounds. NEUROLOGICAL: No headaches, no weakness, no numbness. HEMATOLOGICAL: Denies any bleeding or petechiae. GENITOURINARY: Denies any burning micturition, frequency, or urgency. MUSCULOSKELETAL/RHEUMATOLOGICAL: Denies any joint pain, swelling, or any muscle pain. ENDOCRINE: Denies any polyuria or polydipsia. Past Medical History Past Medical History: Asthma, Cancer, COPD, Deep Vein Thrombosis (DVT), Hyperlipidemia, Hypertension, Osteoarthritis (OA), Rheumatoid Arthritis (RA), Skin Disorder Additional Past Medical History / Comment(s): Hx. 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 RIGHT KNEE REPLACEMENT X 2., jennifer ulder surgeries , hiatal hernia repair, I&D L inguinal abscess, right wrist surgery Past Anesthesia/Blood Transfusion Reactions: No Reported Reaction Type of Cardiac Device: Permanent Pacemaker Device Placement Date:: October 2012 Past Psychological History: No Psychological Hx Reported Smoking Status: Former smoker Past Alcohol Use History: None Reported Past Drug Use History: None Reported - Past Family History Father Additional Family Medical History / Comment(s): Father pulmonary fibrosis Mother Family Medical History: Cancer Sister(s) Additional Family Medical History / Comment(s): melanoma Medications and Allergies Home Medications Medication Instructions Recorded Confirmed Type Bimatoprost [Lumigan 0.01% Ophth 1 drop BOTH EYES HS@199911/07/13 08/25/21 History Soln] Montelukast [Singulair] 10 mg PO HS@199911/07/13 08/25/21 History allopurinoL [Zyloprim] 100 mg PO BID@080007/09/14 08/25/21 History Omeprazole 20 mg PO BID@0800,1700 03/29/16 08/25/21 History DULoxetine HCL [Cymbalta] 60 mg PO HS@199911/22/18 08/25/21 History Folic Acid 1 mg PO DAILY@0800 02/10/20 08/25/21 History Multivitamins, Thera [Multivitamin 1 tab PO DAILY@1700 02/10/20 08/25/21 History (formulary)] Nitroglycerin Sl Tabs [Nitrostat] 0.4 mg SUBLINGUAL Q5M PRN 02/10/20 08/25/21 History Atorvastatin [Lipitor] 20 mg PO DAILY@169908/31/20 08/25/21 History Metoprolol Tartrate [Lopressor] 25 mg PO BID@0800,169908/31/20 08/25/21 History Acyclovir 400 mg PO BID@0800,199908/03/21 08/25/21 History Calcium Carbonate/Vitamin D3 1 cap PO DAILY@169908/03/21 08/25/21 History [Calcium 600 mg-D3 10 Mcg (400 Iu)] Docusate [Colace] 100 mg PO DAILY@0808/03/21 08/25/21 History Famotidine [Pepcid] 20 mg PO DAILY@79908/03/21 08/25/21 History Potassium Chloride ER [K-Dur 10] 10 meq PO DAILY@79908/03/21 08/25/21 History Psyllium Husk 100% [Metamucil 6 gm PO DAILY@79908/03/21 08/25/21 History Packet] ondansetron HCL [Zofran] 8 mg PO Q6H PRN 08/03/21 08/25/21 History Acetaminophen Tab [Tylenol] 650 mg PO Q6HR PRN tab 08/19/21 08/25/21 Rx Albuterol Inhaler [Ventolin Hfa 2 puff INHALATION RT-Q2H PRN gm 08/19/21 08/25/21 Rx Inhaler] Albuterol Inhaler [Ventolin Hfa 2 puff INHALATION RT-QID gm 08/19/21 08/25/21 Rx Inhaler] guaiFENesin-DM 100-10MG/5ML 10 ml PO Q6HR PRN ml 08/19/21 08/25/21 Rx [Robitussin DM] hydrALAZINE HCL [Apresoline] 25 mg PO QID PRN tab 08/19/21 08/25/21 Rx Ascorbic Acid [Vitamin C] 1,000 mg PO DAILY@169908/25/21 08/25/21 History Budesonide-Formot 160-4.5 Mcg 2 puff INHALATION RT-BID@0800,1700 08/25/21 08/25/21 History [Symbicort 160-4.5 Mcg Inhaler] Cholecalciferol [Vitamin D3 (125 125 mcg PO DAILY@1700 08/25/21 08/25/21 History Mcg = 5000 Iu)] Enoxaparin [Lovenox] 150 mg SQ DAILY@1700 08/25/21 08/25/21 History Furosemide [Lasix] 60 mg PO DAILY@0800 08/25/21 08/25/21 History Gabapentin [Neurontin] 400 mg PO BID@0800,2100 08/25/21 08/25/21 History HYDROcodone/APAP 5-325MG [[place]xton 1 tab PO Q6H PRN 08/25/21 08/25/21 History 5-325] Magnesium Hydroxide [Milk of 2,400 mg PO Q48H PRN 08/25/21 08/25/21 History Magnesia] Na Phos,M-B/Na Phos,Di-Ba [Fleet 133 ml RECTAL DAILY PRN 08/25/21 08/25/21 History Adult] Sodium Bicarbonate Tab 650 mg PO BID@0800,1700 08/25/21 08/25/21 History Tiotropium 2.5 Mcg/Puff [Spiriva 2 puff INHALATION RT-DAILY@0808/25/21 08/25/21 History Respimat 2.5 Mcg] Warfarin [Coumadin] 2.5 mg PO HS@209908/25/21 08/25/21 History Zinc Gluconate [Zinc] 50 mg PO DAILY@0 08/25/21 08/25/21 History bisacodyL [Dulcolax] 10 mg RECTAL DAILY PRN 08/25/21 08/25/21 History predniSONE See Taper PO DAILY 08/25/21 08/25/21 History Allergies Allergy/AdvReac Type Severity Reaction Status Date / Time LUNA Inhibitors AdvReac Cough Verified 08/25/21 08:54 IV STEROIDS Allergy Itching Uncoded 08/25/21 08:36 tape Allergy Unknown Uncoded 08/25/21 08:36 Physical Exam Vitals: Vital Signs Temp Pulse Resp BP Pulse Ox 08/25/21 20:27 95 18 136/60 96 08/25/21 19:30 100 18 126/57 95 08/25/21 18:55 98.0 F 105 H 16 126/64 98 08/25/21 18:25 98.0 F 98 16 124/62 96 08/25/21 18:15 97.8 F 98 16 119/53 98 08/25/21 18:00 97.8 F 112 H 16 119/53 08/25/21 16:41 113 H 136/67 08/25/21 16:00 98 16 112/65 97 08/25/21 15:00 98 16 121/59 97 08/25/21 14:00 88 16 117/66 98 08/25/21 13:00 80 16 108/55 97 08/25/21 12:45 90 18 128/75 98 08/25/21 08:28 98.0 F 98 18 113/83 99 Intake and Output 08/25/21 08/25/21 08/25/21 06:59 14:59 22:59 Intake Total 310 Balance 310 Intake: Blood Product 310 Rc As-1 Unit 310 [id number] Other: Weight 95.254 kg -GENERAL: The patient is alert and oriented x3, not in any acute distress. Well developed, well nourished. Generally weak. Obese HEENT: Pupils are round and equally reacting to light. EOMI. No scleral icterus. No conjunctival pallor. Normocephalic, atraumatic. No pharyngeal erythema. No thyromegaly. CARDIOVASCULAR: S1 and S2 present. No murmurs, rubs, or gallops. PULMONARY: Chest is clear to auscultation, no wheezing or crackles. -ABDOMEN: Soft, nontender, nondistended, normoactive bowel sounds. No palpable organomegaly. Large fluctuant Left abdominal wall swelling MUSCULOSKELETAL: No joint swelling or deformity. EXTREMITIES: No cyanosis, clubbing, or pedal edema. NEUROLOGICAL: Gross neurological examination did not reveal any focal deficits. SKIN: No rashes. No petechiae Results CBC & Chem 7: 08/25/21 16:02 08/25/21 08:50 Labs: Abnormal Lab Results - Last 24 Hours (Table) 08/25/21 08/25/21 08/25/21 Range/Units 08:50 08:50 08:50 WBC 16.5 H (3.8-10.6) k/uL RBC 2.66 L (3.80-5.40) m/uL Hgb 8.2 L D (11.4-16.0) gm/dL Hct 25.8 L (34.0-46.0) % MCHC (31.0-37.0) g/dL RDW 20.1 H (11.5-15.5) % Neutrophils # 15.1 H (1.3-7.7) k/uL Lymphocytes # 0.8 L (1.0-4.8) k/uL PT 23.0 H (9.0-12.0) sec INR 2.3 H (<1.2) APTT 32.3 H (22.0-30.0) sec Sodium 135 L (137-145) mmol/L Carbon Dioxide 31 H (22-30) mmol/L BUN 27 H (7-17) mg/dL Glucose 104 H (74-99) mg/dL Magnesium 1.5 L (1.6-2.3) mg/dL Total Protein 5.4 L (6.3-8.2) g/dL Albumin 3.0 L (3.5-5.0) g/dL Urine Appearance (Clear) Urine RBC (0-5) /hpf Urine WBC (0-5) /hpf Crossmatch 08/25/21 08/25/21 08/25/21 Range/Units 09:26 12:00 16:02 WBC 16.1 H (3.8-10.6) k/uL RBC 2.44 L (3.80-5.40) m/uL Hgb 7.5 L (11.4-16.0) gm/dL Hct 24.4 L (34.0-46.0) % MCHC 30.8 L (31.0-37.0) g/dL RDW 20.6 H (11.5-15.5) % Neutrophils # 14.7 H (1.3-7.7) k/uL Lymphocytes # 0.7 L (1.0-4.8) k/uL PT (9.0-12.0) sec INR (<1.2) APTT (22.0-30.0) sec Sodium (137-145) mmol/L Carbon Dioxide (22-30) mmol/L BUN (7-17) mg/dL Glucose (74-99) mg/dL Magnesium (1.6-2.3) mg/dL Total Protein (6.3-8.2) g/dL Albumin (3.5-5.0) g/dL Urine Appearance Bloody H (Clear) Urine RBC >182 H (0-5) /hpf Urine WBC >182 H (0-5) /hpf Crossmatch See Detail Microbiology - Last 24 Hours (Table) 08/25/21 12:00 Urine Culture - Preliminary Urine,Clean Catch Assessment and Plan Assessment: Worsening acute abdominal wall and pelvic hematoma and possible urinary bladder hematoma Acute blood loss anemia, secondary to above. Heterogeneous area of the first and second part of the duodenum 2.1 x 3.2 x 3.8 cm Recent history of covid Pneumonia COPD, no acute exacerbation History of DVT on warfarin (on hold) History of atrial fibrillation on warfarin with rate controlled Multiple myeloma, she follows up with Dr. Beatty. Last treatment was one week prior to admission to last hospital Chronic leukocytosis Plan: This is a pleasant 86 his old female who presents with multiple hematomas, duodenal lesion Continue with monitoring hemoglobin Hold Lovenox and warfarin, status post vitamin K. Monitor vitals Surgical team consult Also we will consult cardiology and hematology/oncology teams Labs and medication were reviewed.. Continue same treatment. Continue with symptomatic treatment. Resume home medication. Monitor lytes and vitals. DVT and GI prophylaxis. Further recommendations depends on the clinical course of the patient DVT prophylaxis: No anticoagulation in view of hematoma and bleeding GI Prophylaxis: Protonix PT/OT: From ECF Prognosis is guarded
[2021-08-26] MEDS: PANTOPRAZOLE 40 MG/10 ML VIAL IVP SCH ×3 (00:18→22:18)
[2021-08-26 00:41] LABS: Anisocytosis Slight; Basophils % (A) 0 %; Eosinophils # (A) 0.1 k/uL (0-0.7); Eosinophils % (A) 1 %; HCT 29.2 % (34.0-46.0); Hypochromasia Moderate; Lymphocytes # (A) 0.5 k/uL (1.0-4.8); Lymphocytes % (A) 3 %; MCH 31.6 pg (25.0-35.0); MCHC 31.8 g/dL (31.0-37.0); MCV 99.6 fL (80.0-100.0); Macrocytosis Moderate; Mean Platelet Volume 8.8; Monocytes # (A) 0.6 k/uL (0-1.0); Monocytes % (A) 4 %; Neutrophils # (A) 14.5 k/uL (1.3-7.7); Neutrophils % (A) 92 %; Platelet Count 167 k/uL (150-450); Poikilocytosis Slight; RBC 2.94 m/uL (3.80-5.40); WBC 15.7 k/uL (3.8-10.6)
[2021-08-26 01:22] LABS: HGB 9.3 gm/dL (11.4-16.0)
[2021-08-26] MEDS: SODIUM CHLORIDE 0.9% 1,000 ML IV SCH ×3 (04:18→22:59)
[2021-08-26] MEDS: HYDROmorphone 0.5 MG/0.5 ML SYRINGE IVP PRN ×7 (04:18→23:27)
[2021-08-26] MEDS: METOPROLOL TARTRATE 25 MG TAB PO SCH ×2 (05:46→17:57)
[2021-08-26 06:24] LABS: Anisocytosis Slight; Basophils % (A) 0 %; Eosinophils # (A) 0.1 k/uL (0-0.7); Eosinophils % (A) 0 %; HCT 28.4 % (34.0-46.0); HGB 9.1 gm/dL (11.4-16.0); Hypochromasia Moderate; Lymphocytes # (A) 0.7 k/uL (1.0-4.8); Lymphocytes % (A) 5 %; MCH 31.2 pg (25.0-35.0); MCV 97.7 fL (80.0-100.0); Macrocytosis Moderate; Mean Platelet Volume 8.6; Monocytes # (A) 0.6 k/uL (0-1.0); Monocytes % (A) 4 %; Neutrophils % (A) 91 %; Platelet Count 162 k/uL (150-450); Poikilocytosis Moderate; RBC 2.91 m/uL (3.80-5.40); RDW 19.2 % (11.5-15.5); WBC 15.4 k/uL (3.8-10.6)
[2021-08-26 06:37] LABS: INR 1.1 (<1.2)
[2021-08-26 06:47] LABS: Albumin 2.7 g/dL (3.5-5.0); Calcium 9.1 mg/dL (8.4-10.2); Magnesium 1.6 mg/dL (1.6-2.3); Potassium 3.3 mmol/L (3.5-5.1); Total Bilirubin 1.1 mg/dL (0.2-1.3)
[2021-08-26] MEDS: ALBUTEROL NEBULIZED 2.5 MG/3 ML INHALATION SCH ×4 (07:05→21:25)
[2021-08-26] MEDS: SYMBICORT 160-4.5 MCG INHALER INHALATION SCH ×2 (07:05→21:25)
[2021-08-26] MEDS ORDERED: FAMOTIDINE 20 MG TAB PO SCH (09:00)
[2021-08-26] MEDS ORDERED: bisacodyL 10 MG SUPP RECTAL PRN (09:00)
[2021-08-26] MEDS: FUROSEMIDE 20 MG TAB PO SCH (09:58)
[2021-08-26] MEDS: DOCUSATE 100 MG CAP PO SCH (09:58)
[2021-08-26] MEDS: ACYCLOVIR 200 MG CAP PO SCH ×2 (09:58→22:17)
[2021-08-26] MEDS: GABAPENTIN 400 MG CAP PO SCH ×2 (09:58→22:18)
[2021-08-26] MEDS: IOPAMIDOL CONTRAST (ORAL USE) VIAL PO PRN ×2 (11:00→12:30)
--- NOTE | 2021-08-26 13:03 | P.GSCN ---
History of Present Illness Consult date: 08/26/21 History of present illness: CHIEF COMPLAINT: Abdominal pain HISTORY OF PRESENT ILLNESS: This is a 86-year-old female with recent hospitalization earlier in August for Covid pneumonia and Spontaneous rectus sheath hematoma. Patient takes Coumadin for her atrial fibrillation. Coumadin was restarted at the end of her last hospitalization and she was discharged to rehab on Coumadin. Patient is confused and is poor historian. She was able to say she had increase in abdominal pain. She is not sure why she was brought back in to the emergency room. Per ER report there was some blood noted in the brief period not sure if it came from the rectum area. Patient had a computed tomography scan of the abdomen and pelvis with IV contrast that had shown larger left anterior abdominal wall inferior hematoma suggestive of interval rebleeding. Slightly smaller right pelvic hematoma interval rebleeding cannot be excluded. And a newly seen heterogenous area along the anterior aspect of the first/second part of the duodenum which was not appreciated previously. This is nonspecific and could be related to a duodenal diverticulum that was not well appreciated previously however underlying contained perforation of the duodenal ulcer or other acute inflammatory/infectious process at that location cannot be excluded. Patient does complain of diffuse abdominal pain. She is more distended. She denies any nausea or vomiting. Denies any fever. Hemoglobin 8.2 on admission did drop to 7.5. She required 1 unit of blood. Repeat hemoglobin 9.3. Patient has been mildly tachycardic as well as elevated white count. Patient did receive vitamin K in the ER. PAST MEDICAL HISTORY: See list. PAST SURGICAL HISTORY: See list. MEDICATIONS: See list. ALLERGIES: See list. SOCIAL HISTORY: No illicit drug use. REVIEW OF SYSTEMS: CONSTITUTIONAL: Denies fever or chills. HEENT: Denies blurred vision, vision changes, or eye pain. Denies hemoptysis CARDIOVASCULAR: Denies chest pain or pressure. RESPIRATORY: No shortness of breath. GASTROINTESTINAL: See HPI for pertinent findings HEMATOLOGIC: Denies bleeding disorders. GENITOURINARY: Denies any blood in urine or increased urinary frequency. SKIN: Denies pruitis. Denies rash. PHYSICAL EXAM: VITAL SIGNS: Reviewed GENERAL: Well-developed in no acute distress. HEENT: No sclera icterus. Extraocular movements grossly intact. Moist buccal mucosa. Head is atraumatic, normocephalic. No nasal drainage. ABDOMEN: Soft. Diffuse tenderness. However more tender in the upper abdomen left lower and right lower abdomen. She does have ecchymosis noted right lower abdomen NEUROLOGIC: Confused LABORATORY DATA: WBC 16.5 on admission down to 15.4 hemoglobin 8.2 down to 7.5 now at 9.1 Platelets 162 INR 2.3 down to 1.1 Sodium 139 potassium 3.3 creatinine 0.86 Urinalysis bloody in appearance IMAGING: Computed tomography scan abdomen and pelvis with IV contrast that had shown larger left anterior abdominal wall inferior hematoma suggestive of interval rebleeding. Slightly smaller right pelvic hematoma interval rebleeding cannot be excluded. Left sided hematoma measures 16.5 cm compared to 14.9 cm previously right pelvic hematoma measures 11.8 cm compared to 15.6 cm previously Please note the underlying lesion in the described hematomas cannot be excluded. Persistent mass effect of the right pelvic hematoma on the urinary bladder. And a newly seen heterogenous area along the anterior aspect of the first/second part of the duodenum which was not appreciated previously. This is nonspecific and could be related to a duodenal diverticulum that was not well appreciated previously however underlying contained perforation of the duodenal ulcer or other acute inflammatory/infectious process at that location cannot be excluded. ASSESSMENT: 1. Large left anterior abdominal wall inferior hematoma with interval rebleeding and slightly smaller right pelvic hematoma with possible interval rebleeding on CAT scan. 2. Heterogeneous area along the aspect of the first and second part of the duodenum. Could be related to a duodenal diverticulum. However, underlying contained perforation of duodenal ulcer or acute inflammatory/infectious process not excluded on CAT scan 3. Anemia with acute blood loss anemia 4. History of A. fib anticoagulated with Coumadin PLAN: -Computed tomography scan of abdomen and pelvis ordered with oral contrast for further evaluation of patient's abdominal pain -Further recommendations forthcoming per surgeon -Keep patient nothing by mouth -Continue to hold Coumadin -Continue to monitor hemoglobin -Continue to monitor for any signs or symptoms of bleeding Thank you for this consultation Physician Watch Commander note has been reviewed by physician. Signing provider agrees with the documented findings, assessment, and plan of care. I have personally seen and examined the patient, reviewed the CHECK AIRMAN /PAs history, exam and MDM and agree with the assessment and plan as written. Based on total visit time, I have performed more than 50% of the visit. As above: Patient well known to our service. Patient re-presents to the hospital with possible GI bleed. Per the ER staff this was felt to possibly represent vaginal bleeding. The patient had a CAT scan performed showing an abnormality near the sweep of the duodenum and perforation was included in the differential diagnosis. The patient has been having lower abdominal pain she states since discharge but seems to have increased somewhat recently. Because of the abnormality adjacent to the duodenum a repeat CAT scan was ordered by myself earlier today. CAT scan was performed with oral contrast. The abnormality in the periduodenal region persists but no obvious perforation was evident. Etiology unclear but could represent focal pancreatitis, pancreatic neoplasm, or other etiology. The patient's hematomas were included in the field of view. The left retroperitoneal hematoma seemed to be slightly larger and active bleeding was not excluded per radiology. The patient's suprapubic preperitoneal hematoma now has contrast within it. There appears to be a fistulous communication to the bladder at this time. Once I saw the results of this on the computer I consulted urology and spoke to Dr. Vale by phone. I also consulted Dr. Bagley and spoke to her by phone. Bagley catheter will be placed. Cystogram has been ordered. Continue to hold anticoagulation indefinitely. Will order pancreatic enzymes. Will follow. Past Medical History Past Medical History: Asthma, Cancer, COPD, Deep Vein Thrombosis (DVT), Hyperlipidemia, Hypertension, Osteoarthritis (OA), Rheumatoid Arthritis (RA), Skin Disorder Additional Past Medical History / Comment(s): Hx. 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 RIGHT KNEE REPLACEMENT X 2., shoulder surgeries , hiatal hernia repair, I&D L inguinal abscess, right wrist surgery Past Anesthesia/Blood Transfusion Reactions: No Reported Reaction Type of Cardiac Device: Permanent Pacemaker Device Placement Date:: October 2012 Past Psychological History: No Psychological Hx Reported Smoking Status: Former smoker Past Alcohol Use History: None Reported Past Drug Use History: None Reported - Past Family History Father Additional Family Medical History / Comment(s): Father pulmonary fibrosis Mother Family Medical History: Cancer Sister(s) Additional Family Medical History / Comment(s): melanoma Medications and Allergies Home Medications Medication Instructions Recorded Confirmed Type Bimatoprost [Lumigan 0.01% Ophth 1 drop BOTH EYES HS@199911/07/13 08/25/21 History Soln] Montelukast [Singulair] 10 mg PO HS@199911/07/13 08/25/21 History allopurinoL [Zyloprim] 100 mg PO BID@0800,199907/09/14 08/25/21 History Omeprazole 20 mg PO BID@0800,169903/29/16 08/25/21 History DULoxetine HCL [Cymbalta] 60 mg PO HS@199911/22/18 08/25/21 History Folic Acid 1 mg PO DAILY@0802/10/20 08/25/21 History Multivitamins, Thera [Multivitamin 1 tab PO DAILY@169902/10/20 08/25/21 History (formulary)] Nitroglycerin Sl Tabs [Nitrostat] 0.4 mg SUBLINGUAL Q5M PRN 02/10/20 08/25/21 History Atorvastatin [Lipitor] 20 mg PO DAILY@169908/31/20 08/25/21 History Metoprolol Tartrate [Lopressor] 25 mg PO BID@0800,169908/31/20 08/25/21 History Acyclovir 400 mg PO BID@08,199908/03/21 08/25/21 History Calcium Carbonate/Vitamin D3 1 cap PO DAILY@169908/03/21 08/25/21 History [Calcium 600 mg-D3 10 Mcg (400 Iu)] Docusate [Colace] 100 mg PO DAILY@79908/03/21 08/25/21 History Famotidine [Pepcid] 20 mg PO DAILY@79908/03/21 08/25/21 History Potassium Chloride ER [K-Dur 10] 10 meq PO DAILY@79908/03/21 08/25/21 History Psyllium Husk 100% [Metamucil 6 gm PO DAILY@79908/03/21 08/25/21 History Packet] ondansetron HCL [Zofran] 8 mg PO Q6H PRN 08/03/21 08/25/21 History Acetaminophen Tab [Tylenol] 650 mg PO Q6HR PRN tab 08/19/21 08/25/21 Rx Albuterol Inhaler [Ventolin Hfa 2 puff INHALATION RT-Q2H PRN gm 08/19/21 08/25/21 Rx Inhaler] Albuterol Inhaler [Ventolin Hfa 2 puff INHALATION RT-QID gm 08/19/21 08/25/21 Rx Inhaler] guaiFENesin-DM 100-10MG/5ML 10 ml PO Q6HR PRN ml 08/19/21 08/25/21 Rx [Robitussin DM] hydrALAZINE HCL [Apresoline] 25 mg PO QID PRN tab 08/19/21 08/25/21 Rx Ascorbic Acid [Vitamin C] 1,000 mg PO DAILY@1700 08/25/21 08/25/21 History Budesonide-Formot 160-4.5 Mcg 2 puff INHALATION RT-BID@0800,1700 08/25/21 08/25/21 History [Symbicort 160-4.5 Mcg Inhaler] Cholecalciferol [Vitamin D3 (125 125 mcg PO DAILY@0 08/25/21 08/25/21 History Mcg = 5000 Iu)] Enoxaparin [Lovenox] 150 mg SQ DAILY@1700 08/25/21 08/25/21 History Furosemide [Lasix] 60 mg PO DAILY@0800 08/25/21 08/25/21 History Gabapentin [Neurontin] 400 mg PO BID@0800,2100 08/25/21 08/25/21 History HYDROcodone/APAP 5-325MG [[place] 1 tab PO Q6H PRN 08/25/21 08/25/21 History 5-325] Magnesium Hydroxide [Milk of 2,400 mg PO Q48H PRN 08/25/21 08/25/21 History Magnesia] Na Phos,M-B/Na Phos,Di-Ba [Fleet 133 ml RECTAL DAILY PRN 08/25/21 08/25/21 History Adult] Sodium Bicarbonate Tab 650 mg PO BID@0800,1700 08/25/21 08/25/21 History Tiotropium 2.5 Mcg/Puff [Spiriva 2 puff INHALATION RT-DAILY@0800 08/25/21 08/25/21 History Respimat 2.5 Mcg] Warfarin [Coumadin] 2.5 mg PO HS@2100 08/25/21 08/25/21 History Zinc Gluconate [Zinc] 50 mg PO DAILY@1700 08/25/21 08/25/21 History bisacodyL [Dulcolax] 10 mg RECTAL DAILY PRN 08/25/21 08/25/21 History predniSONE See Taper PO DAILY 08/25/21 08/25/21 History Allergies Allergy/AdvReac Type Severity Reaction Status Date / Time LUNA Inhibitors AdvReac Cough Verified 08/25/21 08:54 IV STEROIDS Allergy Itching Uncoded 08/25/21 08:36 tape Allergy Unknown Uncoded 08/25/21 08:36 Surgical - Exam Vital Signs Temp Pulse Resp BP Pulse Ox 98.0 F 98 18 113/83 99 08/25/21 08:28 08/25/21 08:28 08/25/21 08:28 08/25/21 08:28 08/25/21 08:28 Results - Labs 08/26/21 06:01 08/26/21 06:01 Abnormal Lab Results - Last 24 Hours (Table) 08/25/21 08/25/21 08/25/21 Range/Units 08:50 08:50 08:50 WBC 16.5 H (3.8-10.6) k/uL RBC 2.66 L (3.80-5.40) m/uL Hgb 8.2 L D (11.4-16.0) gm/dL Hct 25.8 L (34.0-46.0) % MCHC (31.0-37.0) g/dL RDW 20.1 H (11.5-15.5) % Neutrophils # 15.1 H (1.3-7.7) k/uL Lymphocytes # 0.8 L (1.0-4.8) k/uL PT 23.0 H (9.0-12.0) sec INR 2.3 H (<1.2) APTT 32.3 H (22.0-30.0) sec Sodium 135 L (137-145) mmol/L Potassium (3.5-5.1) mmol/L Carbon Dioxide 31 H (22-30) mmol/L BUN 27 H (7-17) mg/dL Glucose 104 H (74-99) mg/dL Magnesium 1.5 L (1.6-2.3) mg/dL AST (14-36) U/L Total Protein 5.4 L (6.3-8.2) g/dL Albumin 3.0 L (3.5-5.0) g/dL Urine Appearance (Clear) Urine RBC (0-5) /hpf Urine WBC (0-5) /hpf Crossmatch 08/25/21 08/25/21 08/25/21 Range/Units 09:26 12:00 16:02 WBC 16.1 H (3.8-10.6) k/uL RBC 2.44 L (3.80-5.40) m/uL Hgb 7.5 L (11.4-16.0) gm/dL Hct 24.4 L (34.0-46.0) % MCHC 30.8 L (31.0-37.0) g/dL RDW 20.6 H (11.5-15.5) % Neutrophils # 14.7 H (1.3-7.7) k/uL Lymphocytes # 0.7 L (1.0-4.8) k/uL PT (9.0-12.0) sec INR (<1.2) APTT (22.0-30.0) sec Sodium (137-145) mmol/L Potassium (3.5-5.1) mmol/L Carbon Dioxide (22-30) mmol/L BUN (7-17) mg/dL Glucose (74-99) mg/dL Magnesium (1.6-2.3) mg/dL AST (14-36) U/L Total Protein (6.3-8.2) g/dL Albumin (3.5-5.0) g/dL Urine Appearance Bloody H (Clear) Urine RBC >182 H (0-5) /hpf Urine WBC >182 H (0-5) /hpf Crossmatch See Detail 08/25/21 08/26/21 08/26/21 Range/Units 23:44 06:01 06:01 WBC 15.7 H 15.4 H (3.8-10.6) k/uL RBC 2.94 L 2.91 L (3.80-5.40) m/uL Hgb 9.3 L D 9.1 L (11.4-16.0) gm/dL Hct 29.2 L 28.4 L (34.0-46.0) % MCHC (31.0-37.0) g/dL RDW 19.0 H 19.2 H (11.5-15.5) % Neutrophils # 14.5 H 14.0 H (1.3-7.7) k/uL Lymphocytes # 0.5 L 0.7 L (1.0-4.8) k/uL PT (9.0-12.0) sec INR (<1.2) APTT (22.0-30.0) sec Sodium (137-145) mmol/L Potassium 3.3 L (3.5-5.1) mmol/L Carbon Dioxide (22-30) mmol/L BUN 30 H (7-17) mg/dL Glucose 107 H (74-99) mg/dL Magnesium (1.6-2.3) mg/dL AST 38 H (14-36) U/L Total Protein 5.0 L (6.3-8.2) g/dL Albumin 2.7 L (3.5-5.0) g/dL Urine Appearance (Clear) Urine RBC (0-5) /hpf Urine WBC (0-5) /hpf Crossmatch Microbiology - Last 24 Hours (Table) 08/25/21 12:00 Urine Culture - Preliminary Urine,Clean Catch Diabetes panel 08/25/21 08/26/21 Range/Units 08:50 06:01 Sodium 135 L 139 (137-145) mmol/L Potassium 3.6 3.3 L (3.5-5.1) mmol/L Chloride 101 106 (98-107) mmol/L Carbon Dioxide 31 H 30 (22-30) mmol/L BUN 27 H 30 H (7-17) mg/dL Creatinine 0.85 0.86 (0.52-1.04) mg/dL Glucose 104 H 107 H (74-99) mg/dL Calcium 9.3 9.1 (8.4-10.2) mg/dL AST 36 38 H (14-36) U/L ALT 28 29 (4-34) U/L Alkaline Phosphatase 101 98 (38-126) U/L Total Protein 5.4 L 5.0 L (6.3-8.2) g/dL Albumin 3.0 L 2.7 L (3.5-5.0) g/dL Calcium panel 08/25/21 08/26/21 Range/Units 08:50 06:01 Calcium 9.3 9.1 (8.4-10.2) mg/dL Albumin 3.0 L 2.7 L (3.5-5.0) g/dL Pituitary panel 08/25/21 08/26/21 Range/Units 08:50 06:01 Sodium 135 L 139 (137-145) mmol/L Potassium 3.6 3.3 L (3.5-5.1) mmol/L Chloride 101 106 (98-107) mmol/L Carbon Dioxide 31 H 30 (22-30) mmol/L BUN 27 H 30 H (7-17) mg/dL Creatinine 0.85 0.86 (0.52-1.04) mg/dL Glucose 104 H 107 H (74-99) mg/dL Calcium 9.3 9.1 (8.4-10.2) mg/dL Adrenal panel 08/25/21 08/26/21 Range/Units 08:50 06:01 Sodium 135 L 139 (137-145) mmol/L Potassium 3.6 3.3 L (3.5-5.1) mmol/L Chloride 101 106 (98-107) mmol/L Carbon Dioxide 31 H 30 (22-30) mmol/L BUN 27 H 30 H (7-17) mg/dL Creatinine 0.85 0.86 (0.52-1.04) mg/dL Glucose 104 H 107 H (74-99) mg/dL Calcium 9.3 9.1 (8.4-10.2) mg/dL Total Bilirubin 1.1 1.1 (0.2-1.3) mg/dL AST 36 38 H (14-36) U/L ALT 28 29 (4-34) U/L Alkaline Phosphatase 101 98 (38-126) U/L Total Protein 5.4 L 5.0 L (6.3-8.2) g/dL Albumin 3.0 L 2.7 L (3.5-5.0) g/dL
[2021-08-26] MEDS ORDERED: POTASSIUM CHLORIDE 20 MEQ in WATER FOR INJECTION 1 100ML.BAG IVPB STA (13:09)
--- NOTE | 2021-08-26 13:20 | P.CONS ---
History of Present Illness - Reason for Consult Consult date: 08/26/21 hematoma Requesting physician: Leonel Gallo - History of Present Illness Ms. Hanley is a pleasant female pt of Dr. Beatty seen in consult at [facility] on 05/23/13, presented with progressive swelling of her LUE, found to have a left subclavian and axillary DVT, superficial thrombus in the left basilic vein. 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 however, she had stopped coumadin for hiatal hernia repair. She fell and hurt her left wrist area before the planned surgery and had a partial cast and sling. The surgery was cancelled, and coumadin restarted. However careful review of her INR 's subsequent to that, revealed subtherapeutic levels at multiple times. Her INR on hospital admisssion was 1.9 so, not a coumadin failure so she was restarted. Hypercoagulable w/u was ordered as an outpatient. Results double heterozygous MTHFR gene mutation, per current guidelines, this is no longer associated with increased risk. In any case, the patient was on Coumadin chronically, and was advised to continue with the same. Pt was referred back in 07/20 for a new issue. She had been referred to Rheumatology, Dr. Potter, due to increased pain and swelling involving the wrists and hands. She has known extensive DJD. She had a full autoimmune workup, with labs on 05/24/17 revealing a 0.4 g/dL IgG lambda monoclonal protein. In addition free lambda light chain was elevated at 215.9 mg/L, with A light chain also elevated at 33.7 mg/L. however lambda light chain elevation was relatively much more prominent, with a ratio low at 0.16. Other notable f eatures of her labs included FELICITY positivity at 1:320, normal CBC, mildly elevated creatinine at 1.25, as well as mild increase in calcium at 10.2. There was nonspecific lupus anticoagulant positivity, with DRVVT screen negative and hexagonal phase confirmation weakly positive. Additional work up revealed a biclonal IgG lambda M protein ( 0.5 + 0.3 gm/dl), and lambda light chain of 253, with ratio of 0.13. Bone survey and and 24 hr urine were negative. Cr was 0.98, with Ca ++ normal. As she was asymptomatic, with no major lab abnormalities, she was placed on observation. 08/2019 labs showed progression of her lambda light chain as well as drop in ratio. She therefore had repeat labs in 10/21, along with urine studies, and bone survey. Bone survey and urine studies were negative. Total lambda light chains were increased, but ratio was the same at 0.05. She cont on obs and even though her labs did not show abnormalities in terms of her calcium/blood counts/renal function, at her visit in 04/24 she did report a definite drop in energy. She cont with f/u, and 05/26 further progression noted, she started on treatment with Velcade and Decadron and is status post 3 cycles. Pt was recently admitted with covid infection, c/o cough, weakness, SOB persistent over last 4 days. She reports being fully vaccinated She was found to have refractory anemia and abdominal hematoma. This had resolved and she was discharged. She now represented to hospital with increased abdominal pain Review of Systems All systems: negative Constitutional: Reports as per HPI Past Medical History Past Medical History: Asthma, Cancer, COPD, Deep Vein Thrombosis (DVT), Hyperlipidemia, Hypertension, Osteoarthritis (OA), Rheumatoid Arthritis (RA), Skin Disorder Additional Past Medical History / Comment(s): Hx. 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 RIGHT KNEE REPLACEMENT X 2., shoulder surgeries , hiatal hernia repair, I&D L inguinal abscess, right wrist surgery Past Anesthesia/Blood Transfusion Reactions: No Reported Reaction Type of Cardiac Device: Permanent Pacemaker Device Placement Date:: October 2012 Past Psychological History: No Psychological Hx Reported Smoking Status: Former smoker Past Alcohol Use History: None Reported Past Drug Use History: None Reported - Past Family History Father Additional Family Medical History / Comment(s): Father pulmonary fibrosis Mother Family Medical History: Cancer Sister(s) Additional Family Medical History / Comment(s): melanoma Medications and Allergies Home Medications Medication Instructions Recorded Confirmed Type Bimatoprost [Lumigan 0.01% Ophth 1 drop BOTH EYES HS@199911/07/13 08/25/21 History Soln] Montelukast [Singulair] 10 mg PO HS@199911/07/13 08/25/21 History allopurinoL [Zyloprim] 100 mg PO BID@08,199907/09/14 08/25/21 History Omeprazole 20 mg PO BID@0800,169903/29/16 08/25/21 History DULoxetine HCL [Cymbalta] 60 mg PO HS@199911/22/18 08/25/21 History Folic Acid 1 mg PO DAILY@79902/10/20 08/25/21 History Multivitamins, Thera [Multivitamin 1 tab PO DAILY@169902/10/20 08/25/21 History (formulary)] Nitroglycerin Sl Tabs [Nitrostat] 0.4 mg SUBLINGUAL Q5M PRN 02/10/20 08/25/21 History Atorvastatin [Lipitor] 20 mg PO DAILY@169908/31/20 08/25/21 History Metoprolol Tartrate [Lopressor] 25 mg PO BID@0800,169908/31/20 08/25/21 History Acyclovir 400 mg PO BID@799,199908/03/21 08/25/21 History Calcium Carbonate/Vitamin D3 1 cap PO DAILY@169908/03/21 08/25/21 History [Calcium 600 mg-D3 10 Mcg (400 Iu)] Docusate [Colace] 100 mg PO DAILY@79908/03/21 08/25/21 History Famotidine [Pepcid] 20 mg PO DAILY@79908/03/21 08/25/21 History Potassium Chloride ER [K-Dur 10] 10 meq PO DAILY@79908/03/21 08/25/21 History Psyllium Husk 100% [Metamucil 6 gm PO DAILY@79908/03/21 08/25/21 History Packet] ondansetron HCL [Zofran] 8 mg PO Q6H PRN 08/03/21 08/25/21 History Acetaminophen Tab [Tylenol] 650 mg PO Q6HR PRN tab 08/19/21 08/25/21 Rx Albuterol Inhaler [Ventolin Hfa 2 puff INHALATION RT-Q2H PRN gm 08/19/21 08/25/21 Rx Inhaler] Albuterol Inhaler [Ventolin Hfa 2 puff INHALATION RT-QID gm 08/19/21 08/25/21 Rx Inhaler] guaiFENesin-DM 100-10MG/5ML 10 ml PO Q6HR PRN ml 08/19/21 08/25/21 Rx [Robitussin DM] hydrALAZINE HCL [Apresoline] 25 mg PO QID PRN tab 08/19/21 08/25/21 Rx Ascorbic Acid [Vitamin C] 1,000 mg PO DAILY@169908/25/21 08/25/21 History Budesonide-Formot 160-4.5 Mcg 2 puff INHALATION RT-BID@0800,169908/25/21 08/25/21 History [Symbicort 160-4.5 Mcg Inhaler] Cholecalciferol [Vitamin D3 (125 125 mcg PO DAILY@169908/25/21 08/25/21 History Mcg = 5000 Iu)] Enoxaparin [Lovenox] 150 mg SQ DAILY@0 08/25/21 08/25/21 History Furosemide [Lasix] 60 mg PO DAILY@0808/25/21 08/25/21 History Gabapentin [Neurontin] 400 mg PO BID@0800,209908/25/21 08/25/21 History HYDROcodone/APAP 5-325MG [[place] 1 tab PO Q6H PRN 08/25/21 08/25/21 History 5-325] Magnesium Hydroxide [Milk of 2,400 mg PO Q48H PRN 08/25/21 08/25/21 History Magnesia] Na Phos,M-B/Na Phos,Di-Ba [Fleet 133 ml RECTAL DAILY PRN 08/25/21 08/25/21 History Adult] Sodium Bicarbonate Tab 650 mg PO BID@0800,1700 08/25/21 08/25/21 History Tiotropium 2.5 Mcg/Puff [Spiriva 2 puff INHALATION RT-DAILY@0800 08/25/21 08/25/21 History Respimat 2.5 Mcg] Warfarin [Coumadin] 2.5 mg PO HS@2100 08/25/21 08/25/21 History Zinc Gluconate [Zinc] 50 mg PO DAILY@1700 08/25/21 08/25/21 History bisacodyL [Dulcolax] 10 mg RECTAL DAILY PRN 08/25/21 08/25/21 History predniSONE See Taper PO DAILY 08/25/21 08/25/21 History Allergies Allergy/AdvReac Type Severity Reaction Status Date / Time LUNA Inhibitors AdvReac Cough Verified 08/25/21 08:54 IV STEROIDS Allergy Itching Uncoded 08/25/21 08:36 tape Allergy Unknown Uncoded 08/25/21 08:36 Physical Exam Vitals: Vital Signs Temp Pulse Resp BP Pulse Ox 08/26/21 11:42 103 H 18 139/77 98 08/26/21 11:10 109 H 08/26/21 11:00 107 H 08/26/21 07:21 110 H 08/26/21 07:06 111 H 08/26/21 05:49 98.1 F 115 H 18 161/77 96 08/26/21 02:04 100 18 123/80 96 08/26/21 00:00 97 18 136/75 97 08/25/21 20:27 95 18 136/60 96 08/25/21 19:30 100 18 126/57 95 08/25/21 18:55 98.0 F 105 H 16 126/64 98 08/25/21 18:25 98.0 F 98 16 124/62 96 08/25/21 18:15 97.8 F 98 16 119/53 98 08/25/21 18:00 97.8 F 112 H 16 119/53 08/25/21 16:41 113 H 136/67 08/25/21 16:00 98 16 112/65 97 08/25/21 15:00 98 16 121/59 97 08/25/21 14:00 88 16 117/66 98 Intake and Output 08/25/21 08/26/21 08/26/21 22:59 06:59 14:59 Intake Total 310 Balance 310 Intake: Blood Product 310 Rc As-1 Unit 310 [id number] Alert and oriented NAD Lungs DIinished Abdomen with Left abdominal hernia Mid epigastric and LUQ tenderness to palpation Ext: Edema Results CBC & Chem 7: 08/26/21 06:01 08/26/21 06:01 Labs: Abnormal Lab Results - Last 24 Hours (Table) 08/25/21 08/25/21 08/25/21 Range/Units 09:26 16:02 23:44 WBC 16.1 H 15.7 H (3.8-10.6) k/uL RBC 2.44 L 2.94 L (3.80-5.40) m/uL Hgb 7.5 L 9.3 L D (11.4-16.0) gm/dL Hct 24.4 L 29.2 L (34.0-46.0) % MCHC 30.8 L (31.0-37.0) g/dL RDW 20.6 H 19.0 H (11.5-15.5) % Neutrophils # 14.7 H 14.5 H (1.3-7.7) k/uL Lymphocytes # 0.7 L 0.5 L (1.0-4.8) k/uL Potassium (3.5-5.1) mmol/L BUN (7-17) mg/dL Glucose (74-99) mg/dL AST (14-36) U/L Total Protein (6.3-8.2) g/dL Albumin (3.5-5.0) g/dL Procalcitonin (0.02-0.09) ng/mL Crossmatch See Detail 08/26/21 08/26/21 08/26/21 Range/Units 06:01 06:01 06:01 WBC 15.4 H (3.8-10.6) k/uL RBC 2.91 L (3.80-5.40) m/uL Hgb 9.1 L (11.4-16.0) gm/dL Hct 28.4 L (34.0-46.0) % MCHC (31.0-37.0) g/dL RDW 19.2 H (11.5-15.5) % Neutrophils # 14.0 H (1.3-7.7) k/uL Lymphocytes # 0.7 L (1.0-4.8) k/uL Potassium 3.3 L (3.5-5.1) mmol/L BUN 30 H (7-17) mg/dL Glucose 107 H (74-99) mg/dL AST 38 H (14-36) U/L Total Protein 5.0 L (6.3-8.2) g/dL Albumin 2.7 L (3.5-5.0) g/dL Procalcitonin 0.40 H (0.02-0.09) ng/mL Crossmatch Microbiology - Last 24 Hours (Table) 08/25/21 12:00 Urine Culture - Preliminary Urine,Clean Catch Assessment and Plan Plan: Acute hemorrhage Current Visit: Yes Status: Acute Priority: High Code(s): R58 - HEMORRHAGE, NOT ELSEWHERE CLASSIFIED SNOMED Code(s): 280868246 (2) COVID-19 Current Visit: Yes Status: Acute Priority: High Code(s): U07.1 - COVID-19 SNOMED Code(s): 981681586 (3) Multiple myeloma Current Visit: No Status: Chronic Priority: Medium Code(s): C90.00 - MULTIPLE MYELOMA NOT HAVING ACHIEVED REMISSION SNOMED Code(s): 175427390 Plan: NPO with Ice chips and med to confirm no perforation surgical consult placed Monitor daily labs and close CBC Dr. Davis: I have completed the full history and physical and developed the above impression and plan, agree with dictation, dictated as a scribe.
--- NOTE | 2021-08-26 13:36 | CT ---
EXAMINATION TYPE: CT abdomen pelvis wo con DATE OF EXAM: 08/26/2021 COMPARISON: CT dated 08/25/2021 HISTORY: abdominal pain, anemia CT DLP: 1200.4 mGycm Automated exposure control for dose reduction was used. TECHNIQUE: Helical acquisition of images was performed from the lung bases through the pelvis. FINDINGS: Progressive enlargement of the left retroperitoneal hematoma inseparable from the left psoas muscle a s compared to yesterday's CT scan, demonstrating hyperdensity within concerning for progressive activ e bleeding. Persistent large hematoma along the inferior aspect of the left anterior abdominal wall. Large right pelvic hematoma/collection demonstrating dense contrast within, with obvious communicatio n with the urinary bladder (best appreciated in image #89, series 201 and image #77, series 203). Und erlying lesion in the right pelvic hematoma can't be excluded. Again noted is the incompletely characterized heterogeneous area along the anterior aspect of the sec ond part of duodenum measuring 2.9 x 3.5 cm compared to 2.1 x 3.2 cm previously. No other significant interval change appreciated. IMPRESSION: Progressive left retroperitoneal hematoma with hyperdensity within concerning for ongoing active blee ding. Recommend correlation with hemoglobin level and vascular surgery/vascular intervention consulta tion. Right pelvic hematoma demonstrating definite communication with the urinary bladder as described abov e, for urology consultation. Other interval changes as described above.
--- NOTE | 2021-08-26 16:12 | P.CRDCN ---
History of Present Illness Consult date: 08/26/21 History of present illness: This is a 86-year-old female with history of chronic atrial fibrillation, deep venous thrombosis, rheumatoid arthritis, hypertension, hyperlipidemia and COPD who was discharged home recently after prolonged stay. She was sent home on Coumadin. Patient is now readmitted to the hospital with abdominal discomfort and swelling. She was noted to have a temporal hematoma, both on the right and left side signs of active bleeding. This is documented by computed tomography scan of the abdomen and pelvis apparently that may be communication with hematoma to the bladder. She's been seen by surgical team and monitoring her carefully. There is also some lesion near the duodenum. Her main complaints into the abdominal pain. Denies any chest pain or shortness of breath. Patient was anemic on admission and has received blood transfusion. Her Coumadin is held and patient was given vitamin K. We consulted to see the patient regarding atrial fibrillation management. Currently, her heart rate is not high. She is going to be off Coumadin at this time. Review of Systems As per the chart Past Medical History Past Medical History: Asthma, Cancer, COPD, Deep Vein Thrombosis (DVT), Hyperlipidemia, Hypertension, Osteoarthritis (OA), Rheumatoid Arthritis (RA), Skin Disorder Additional Past Medical History / Comment(s): Hx. 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 RIGHT KNEE REPLACEMENT X 2., shoulder surgeries , hiatal hernia repair, I&D L inguinal abscess, right wrist surgery Past Anesthesia/Blood Transfusion Reactions: No Reported Reaction Type of Cardiac Device: Permanent Pacemaker Device Placement Date:: October 2012 Past Psychological History: No Psychological Hx Reported Smoking Status: Former smoker Past Alcohol Use History: None Reported Past Drug Use History: None Reported - Past Family History Father Additional Family Medical History / Comment(s): Father pulmonary fibrosis Mother Family Medical History: Cancer Sister(s) Additional Family Medical History / Comment(s): melanoma Medications and Allergies Home Medications Medication Instructions Recorded Confirmed Type Bimatoprost [Lumigan 0.01% Ophth 1 drop BOTH EYES HS@199911/07/13 08/25/21 History Soln] Montelukast [Singulair] 10 mg PO HS@199911/07/13 08/25/21 History allopurinoL [Zyloprim] 100 mg PO BID@08,199907/09/14 08/25/21 History Omeprazole 20 mg PO BID@0800,169903/29/16 08/25/21 History DULoxetine HCL [Cymbalta] 60 mg PO HS@199911/22/18 08/25/21 History Folic Acid 1 mg PO DAILY@79902/10/20 08/25/21 History Multivitamins, Thera [Multivitamin 1 tab PO DAILY@169902/10/20 08/25/21 History (formulary)] Nitroglycerin Sl Tabs [Nitrostat] 0.4 mg SUBLINGUAL Q5M PRN 02/10/20 08/25/21 History Atorvastatin [Lipitor] 20 mg PO DAILY@169908/31/20 08/25/21 History Metoprolol Tartrate [Lopressor] 25 mg PO BID@0800,169908/31/20 08/25/21 History Acyclovir 400 mg PO BID@799,199908/03/21 08/25/21 History Calcium Carbonate/Vitamin D3 1 cap PO DAILY@169908/03/21 08/25/21 History [Calcium 600 mg-D3 10 Mcg (400 Iu)] Docusate [Colace] 100 mg PO DAILY@79908/03/21 08/25/21 History Famotidine [Pepcid] 20 mg PO DAILY@79908/03/21 08/25/21 History Potassium Chloride ER [K-Dur 10] 10 meq PO DAILY@79908/03/21 08/25/21 History Psyllium Husk 100% [Metamucil 6 gm PO DAILY@79908/03/21 08/25/21 History Packet] ondansetron HCL [Zofran] 8 mg PO Q6H PRN 08/03/21 08/25/21 History Acetaminophen Tab [Tylenol] 650 mg PO Q6HR PRN tab 08/19/21 08/25/21 Rx Albuterol Inhaler [Ventolin Hfa 2 puff INHALATION RT-Q2H PRN gm 08/19/21 08/25/21 Rx Inhaler] Albuterol Inhaler [Ventolin Hfa 2 puff INHALATION RT-QID gm 08/19/21 08/25/21 Rx Inhaler] guaiFENesin-DM 100-10MG/5ML 10 ml PO Q6HR PRN ml 08/19/21 08/25/21 Rx [Robitussin DM] hydrALAZINE HCL [Apresoline] 25 mg PO QID PRN tab 08/19/21 08/25/21 Rx Ascorbic Acid [Vitamin C] 1,000 mg PO DAILY@169908/25/21 08/25/21 History Budesonide-Formot 160-4.5 Mcg 2 puff INHALATION RT-BID@0800,169908/25/21 08/25/21 History [Symbicort 160-4.5 Mcg Inhaler] Cholecalciferol [Vitamin D3 (125 125 mcg PO DAILY@169908/25/21 08/25/21 History Mcg = 5000 Iu)] Enoxaparin [Lovenox] 150 mg SQ DAILY@169908/25/21 08/25/21 History Furosemide [Lasix] 60 mg PO DAILY@0808/25/21 08/25/21 History Gabapentin [Neurontin] 400 mg PO BID@0800,209908/25/21 08/25/21 History HYDROcodone/APAP 5-325MG [[place] 1 tab PO Q6H PRN 08/25/21 08/25/21 History 5-325] Magnesium Hydroxide [Milk of 2,400 mg PO Q48H PRN 08/25/21 08/25/21 History Magnesia] Na Phos,M-B/Na Phos,Di-Ba [Fleet 133 ml RECTAL DAILY PRN 08/25/21 08/25/21 History Adult] Sodium Bicarbonate Tab 650 mg PO BID@0800,1700 08/25/21 08/25/21 History Tiotropium 2.5 Mcg/Puff [Spiriva 2 puff INHALATION RT-DAILY@0800 08/25/21 08/25/21 History Respimat 2.5 Mcg] Warfarin [Coumadin] 2.5 mg PO HS@209908/25/2108/25/22 History Zinc Gluconate [Zinc] 50 mg PO DAILY@1700 08/25/21 08/25/21 History bisacodyL [Dulcolax] 10 mg RECTAL DAILY PRN 08/25/21 08/25/21 History predniSONE See Taper PO DAILY 08/25/21 08/25/21 History Allergies Allergy/AdvReac Type Severity Reaction Status Date / Time LUNA Inhibitors AdvReac Cough Verified 08/25/21 08:54 IV STEROIDS Allergy Itching Uncoded 08/25/21 08:36 tape Allergy Unknown Uncoded 08/25/21 08:36 Physical Exam Vitals: Vital Signs Temp Pulse Resp BP Pulse Ox 08/26/21 16:04 97.8 F 93 18 164/68 95 08/26/21 15:39 106 H 08/26/21 15:28 102 H 08/26/21 14:36 82 18 160/65 96 08/26/21 11:42 103 H 18 139/77 98 08/26/21 11:10 109 H 08/26/21 11:00 107 H 08/26/21 07:21 110 H 08/26/21 07:06 111 H 08/26/21 05:49 98.1 F 115 H 18 161/77 96 08/26/21 02:04 100 18 123/80 96 08/26/21 00:00 97 18 136/75 97 08/25/21 20:27 95 18 136/60 96 08/25/21 19:30 100 18 126/57 95 08/25/21 18:55 98.0 F 105 H 16 126/64 98 08/25/21 18:25 98.0 F 98 16 124/62 96 08/25/21 18:15 97.8 F 98 16 119/53 98 08/25/21 18:00 97.8 F 112 H 16 119/53 08/25/21 16:41 113 H 136/67 GENERAL EXAM: Patient is alert and oriented and doesn't appear to be in moderate distress HEENT: Normocephalic. NECK: No masses, no nuchal rigidity. CHEST: No chest wall deformity. LUNGS: Diminished air exchange HEART: S1 and S2 normal , irregular heart sounds ABDOMEN: Distended with tenderness SKIN: No rashes CENTRAL NERVOUS SYSTEM: No focal deficits. EXTREMITIES: No cyanosis, clubbing or edema. Results 08/26/21 06:01 08/26/21 06:01 Cardiac Enzymes 08/26/21 Range/Units 06:01 AST 38 H (14-36) U/L Coagulation 08/26/21 Range/Units 06:01 PT 12.0 (9.0-12.0) sec CBC 08/25/21 08/25/21 08/26/21 Range/Units 16:02 23:44 06:01 WBC 16.1 H 15.7 H 15.4 H (3.8-10.6) k/uL RBC 2.44 L 2.94 L 2.91 L (3.80-5.40) m/uL Hgb 7.5 L 9.3 L D 9.1 L (11.4-16.0) gm/dL Hct 24.4 L 29.2 L 28.4 L (34.0-46.0) % Plt Count 187 167 162 (150-450) k/uL Comprehensive Metabolic Panel 08/26/21 Range/Units 06:01 Sodium 139 (137-145) mmol/L Potassium 3.3 L (3.5-5.1) mmol/L Chloride 106 (98-107) mmol/L Carbon Dioxide 30 (22-30) mmol/L BUN 30 H (7-17) mg/dL Creatinine 0.86 (0.52-1.04) mg/dL Glucose 107 H (74-99) mg/dL Calcium 9.1 (8.4-10.2) mg/dL AST 38 H (14-36) U/L ALT 29 (4-34) U/L Alkaline Phosphatase 98 (38-126) U/L Total Protein 5.0 L (6.3-8.2) g/dL Albumin 2.7 L (3.5-5.0) g/dL Current Medications Generic Name Dose Route Start Last Admin Trade Name Freq PRN Reason Stop Dose Admin Acetaminophen 650 mg 08/25/21 21:59 Acetaminophen Tab 325 Mg Tab PO Q6HR PRN Mild Pain or Fever > 100.5 Hydrocodone Bitart/Acetaminophen 1 each 08/25/21 21:59 Hydrocodone/Apap 5-325mg 1 Each Tab PO Q6H PRN Moderate Pain Acyclovir 400 mg 08/26/21 08:00 08/26/21 09:58 Acyclovir 200 Mg Cap PO 400 mg BID@0800,1999 [facility] Administration Albuterol Sulfate 2.5 mg 08/25/21 21:59 Albuterol Nebulized 2.5 Mg/3 Ml INHALATION RT-Q2H PRN Shortness Of Breath Or Wheezing Albuterol Sulfate 2.5 mg 08/26/21 08:00 08/26/21 15:28 Albuterol Nebulized 2.5 Mg/3 Ml INHALATION 2.5 mg RT-QID SUBHASH Administration Atorvastatin Calcium 20 mg 08/26/21 17:00 Atorvastatin 20 Mg Tab PO DAILY@1700 [facility] Bisacodyl 10 mg 08/26/21 09:00 Bisacodyl 10 Mg Supp RECTAL DAILY PRN Constipation Budesonide/Formoterol Fumarate 2 puff 08/26/21 08:00 08/26/21 07:05 Symbicort 160-4.5 Mcg Inhaler INHALATION 2 puff RT-BID@0800,1700 [facility] Administration Calcium Carbonate 1 each 08/26/21 17:00 Calcium Carb-Vit D 500 Mg-5 Mcg Tab PO DAILY@1700 [facility] Cholecalciferol 125 mcg 08/26/21 17:00 Cholecalciferol 125 Mcg (5000 Iu) Tablet PO DAILY@1700 [facility] Docusate Sodium 100 mg 08/26/21 08:00 08/26/21 09:58 Docusate 100 Mg Cap PO 100 mg DAILY@0800 [facility] Administration Duloxetine HCl 60 mg 08/26/21 20:00 Duloxetine Hcl 60 Mg Capsule. PO HS@1999 [facility] Furosemide 60 mg 08/26/21 08:00 08/26/21 09:58 Furosemide 20 Mg Tab PO 60 mg DAILY@0800 [facility] Administration Gabapentin 400 mg 08/26/21 08:00 08/26/21 09:58 Gabapentin 400 Mg Cap PO 400 mg BID@0800,2100 [facility] Administration Hydromorphone HCl 0.5 mg 08/25/21 12:58 08/26/21 15:46 Hydromorphone 0.5 Mg/0.5 Ml Syringe IVP 0.5 mg Q3HR PRN Administration Pain Sodium Chloride 1,000 mls @ 100 mls/hr 08/25/21 11:30 08/26/21 10:09 Saline 0.9% IV 100 mls/hr .Q10H SUBHASH Administration Latanoprost 1 drops 08/26/21 20:00 Latanoprost 0.005% Ophth Drops 2.5 Ml Btl BOTH EYES HS@2000 [facility] Metoprolol Tartrate 25 mg 08/26/21 08:00 08/26/21 05:46 Metoprolol Tartrate 25 Mg Tab PO 25 mg BID@0800,1700 SUBAHSH Administration Montelukast Sodium 10 mg 08/26/21 20:00 Montelukast 10 Mg Tab PO HS@2000 [facility] Naloxone HCl 0.2 mg 08/25/21 11:25 Naloxone 0.4 Mg/Ml 1 Ml Vial IV Q2M PRN Opioid Reversal Pantoprazole Sodium 40 mg 08/25/21 22:15 08/26/21 10:00 Pantoprazole 40 Mg/10 Ml Vial IVP Not Given BID [facility] 08/26/21 06:01 08/26/21 06:01 EKG Interpretations (text) Atrial fibrillation with controlled ventricular response Assessment and Plan (1) Retroperitoneal hematoma Current Visit: Yes Status: Acute Code(s): K66.1 - HEMOPERITONEUM SNOMED Code(s): 937816979 (2) Abdominal wall hematoma Current Visit: Yes Status: Acute Code(s): S30.1XXA - CONTUSION OF ABDOMINAL WALL, INITIAL ENCOUNTER SNOMED Code(s): 650284214 (3) Chronic atrial fibrillation Current Visit: Yes Status: Acute Code(s): I48.20 - CHRONIC ATRIAL FIBRILL ATION, UNSPECIFIED SNOMED Code(s): 510040964 (4) Congestive heart failure (CHF) Current Visit: No Status: Acute Code(s): I50.9 - HEART FAILURE, UNSPECIFIED SNOMED Code(s): 27237631 (5) Hypertension Current Visit: No Status: Acute Code(s): I10 - ESSENTIAL (PRIMARY) HYPERTENSION SNOMED Code(s): 79554877 Plan: Continue to hold Coumadin. Monitor PT and INR. Heart rate is fairly controlled. Continue beta ganesh. If necessary, IV beta blockers could be given. Close follow-up regarding her retroperitoneal hematoma and active bleeding. Surgical team is on board. Prognosis is guarded
[2021-08-26] MEDS: CALCIUM CARB-VIT D 500 MG-5 MCG TAB PO SCH (17:57)
[2021-08-26] MEDS: ATORVASTATIN 20 MG TAB PO SCH (17:57)
[2021-08-26] MEDS: CHOLECALCIFEROL 125 MCG (5000 IU) TABLET PO SCH (17:57)
[2021-08-26] MEDS: HYDROcodone/APAP 5-325MG 1 EACH TAB PO PRN (17:58)
--- NOTE | 2021-08-26 20:57 | P.PN ---
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 she was recently discharged from hospital after a prolonged stay Patient is fully awake and oriented in looks calm, little anxious, she states she has some blood in her underwear his parents this morning, she does not know how much and where was coming from and she was sent to the hospital from her ECF Patient also complained of from increasing left abdominal wall swelling and tenderness, it looks bigger than last admission. She denies any other specific symptoms, no dizziness, no chest pain or shortness of breath. No abdominal pain, no nausea vomiting or diarrhea, no vaginal complaints, no urinary complaints. Patient vitals stable, systolic blood pressure is 120 to 130s. She is a slightly tachycardic more than 90s. She has chronic leukocytosis, obesity is 16.1, hemoglobin 8.2, down to 7.5, hemoglobin dropped last admission was entered between 8-9. Platelet count is normal at 187. INR is 2.3 BMP is unremarkable, BUN is 27, creatinine 0.8. Magnesium 1.8. Urinalysis showing hematuria more than 182 and WBC more than 182. CT of the abdomen and pelvis with contrast showing heterogenous area of the first and second part of the duodenum 2.1 x 3.2 x 3.8 cm. Also there is increased pelvic and left abdominal wall hematoma 14.9 up to 16.5 and 11.8 up to 15.6 cm respectively. Also a possible urinary bladder hematoma. On admission she started on IV fluid, vitamin K 5 mg and pain medication. ER team also ordered blood 08/26/2021 Patient is fully awake and oriented, lying in bed in mild to moderate distress due to pain, she is receiving Dilaudid for pain control. Patient also made nothing by mouth for her intra-abdominal hematoma and duodenal lesion with suspected perforation, CT of the abdomen and pelvis without contrast repeated and showed progressive left retroperitoneal hematoma concerning for active bleeding but hemoglobin is stable today at 9.1 compared to 7.5 yesterday. Also she has right pelvic hematoma, indicating with urinary bladder. Urine culture is actually going to euro cocci, group D and patient with tachycardia could be related to infection and bleeding and leukocytosis concerning for sepsis. Patient continued on normal saline at 100 mL per hour, Unasyn is added. Proton discussed started elevated 0.4. WBCs 15.4. INR is back to normal at 1.1. Several consultants on the case Patient was to be DO NOT RESUSCITATE today and she was considering comfort care. As per staff granddaughter is at bedside and aware of patient plan for more conservative uncomfortable measures. Review of systems CONSTITUTIONAL: No fever, no malaise, no fatigue. HEENT: No recent visual problems or hearing problems. Denied any sore throat. CARDIOVASCULAR: No orthopnea, PND, no palpitations, no syncope. PULMONARY: No shortness of breath, no cough, no hemoptysis. NEUROLOGICAL: No headaches, no weakness, no numbness. Active Medications Generic Name Dose Route Start Last Admin Trade Name Freq PRN Reason Stop Dose Admin Acetaminophen 650 mg 08/25/21 21:59 Acetaminophen Tab 325 Mg Tab PO Q6HR PRN Mild Pain or Fever > 100.5 Hydrocodone Bitart/Acetaminophen 1 each 08/25/21 21:59 08/26/21 17:58 Hydrocodone/Apap 5-325mg 1 Each Tab PO 1 each Q6H PRN Administration Moderate Pain Acyclovir 400 mg 08/26/21 08:00 08/26/21 09:58 Acyclovir 200 Mg Cap PO 400 mg BID@0800,2000 [facility] Administration Albuterol Sulfate 2.5 mg 08/25/21 21:59 Albuterol Nebulized 2.5 Mg/3 Ml INHALATION RT-Q2H PRN Shortness Of Breath Or Wheezing Albuterol Sulfate 2.5 mg 08/26/21 08:00 08/26/21 15:28 Albuterol Nebulized 2.5 Mg/3 Ml INHALATION 2.5 mg RT-QID [facility] Administration Alprazolam 0.25 mg 08/26/21 20:53 Alprazolam 0.25 Mg Tab PO BID PRN Anxiety Atorvastatin Calcium 20 mg 08/26/21 17:00 08/26/21 17:57 Atorvastatin 20 Mg Tab PO 20 mg DAILY@1700 [facility] Administration Bisacodyl 10 mg 08/26/21 09:00 Bisacodyl 10 Mg Supp RECTAL DAILY PRN Constipation Budesonide/Formoterol Fumarate 2 puff 08/26/21 08:00 08/26/21 07:05 Symbicort 160-4.5 Mcg Inhaler INHALATION 2 puff RT-BID@0800,1700 [facility] Administration Calcium Carbonate 1 each 08/26/21 17:00 08/26/21 17:57 Calcium Carb-Vit D 500 Mg-5 Mcg Tab PO 1 each DAILY@1700 [facility] Administration Cholecalciferol 125 mcg 08/26/21 17:00 08/26/21 17:57 Cholecalciferol 125 Mcg (5000 Iu) Tablet PO 125 mcg DAILY@1700 [facility] Administration Docusate Sodium 100 mg 08/26/21 08:00 08/26/21 09:58 Docusate 100 Mg Cap PO 100 mg DAILY@0800 [facility] Administration Duloxetine HCl 60 mg 08/26/21 20:00 Duloxetine Hcl 60 Mg Capsule.Dr PO HS@1999 [facility] Furosemide 60 mg 08/26/21 08:00 08/26/21 09:58 Furosemide 20 Mg Tab PO 60 mg DAILY@0800 [facility] Administration Gabapentin 400 mg 08/26/21 08:00 08/26/21 09:58 Gabapentin 400 Mg Cap PO 400 mg BID@08,2099 [facility] Administration Hydromorphone HCl 0.5 mg 08/25/21 12:58 08/26/21 19:56 Hydromorphone 0.5 Mg/0.5 Ml Syringe IVP 0.5 mg Q3HR PRN Administration Pain Sodium Chloride 1,000 mls @ 100 mls/hr 08/25/21 11:30 08/26/21 10:09 Saline 0.9% IV 100 mls/hr .Q10H [facility] Administration Ampicillin Sodium/Sulbactam 100 mls @ 200 mls/hr 08/26/21 21:00 Sodium 3 gm/ Sodium Chloride IVPB Q6H [facility] Protocol Latanoprost 1 drops 08/26/21 20:00 Latanoprost 0.005% Ophth Drops 2.5 Ml Btl BOTH EYES HS@2000 [facility] Metoprolol Tartrate 25 mg 08/26/21 08:00 08/26/21 17:57 Metoprolol Tartrate 25 Mg Tab PO 25 mg BID@0800,1700 [facility] Administration Montelukast Sodium 10 mg 08/26/21 20:00 Montelukast 10 Mg Tab PO HS@1999 [facility] Naloxone HCl 0.2 mg 08/25/21 11:25 Naloxone 0.4 Mg/Ml 1 Ml Vial IV Q2M PRN Opioid Reversal Pantoprazole Sodium 40 mg 08/25/21 22:15 08/26/21 10:00 Pantoprazole 40 Mg/10 Ml Vial IVP Not Given BID [facility] Objective - Vital Signs Vital signs: Vital Signs Temp 98.1 F 08/26/21 05:49 Pulse 103 H 08/26/21 11:42 Resp 18 08/26/21 11:42 BP 139/77 08/26/21 11:42 Pulse Ox 98 08/26/21 11:42 FiO2 Intake & Output 08/25/21 08/26/21 08/26/21 18:59 06:59 18:59 Intake Total 0 310 Balance 0 310 Weight 95.254 kg Intake: Blood Product 0 310 Rc As-1 Unit 0 310 [id number] - Exam -GENERAL: The patient is alert and oriented x3, not in any acute distress. Well developed, well nourished. Generally weak. Obese HEENT: Pupils are round and equally reacting to light. EOMI. No scleral icterus. No conjunctival pallor. Normocephalic, atraumatic. No pharyngeal erythema. No thyromegaly. CARDIOVASCULAR: S1 and S2 present. No murmurs, rubs, or gallops. PULMONARY: Chest is clear to auscultation, no wheezing or crackles. -ABDOMEN: Soft, nontender, nondistended, normoactive bowel sounds. No palpable organomegaly. Large fluctuant Left abdominal wall swelling MUSCULOSKELETAL: No joint swelling or deformity. EXTREMITIES: No cyanosis, clubbing, or pedal edema. NEUROLOGICAL: Gross neurological examination did not reveal any focal deficits. SKIN: No rashes. No petechiae - Labs CBC & Chem 7: 08/26/21 06:01 08/26/21 06:01 Labs: Abnormal Lab Results - Last 24 Hours (Table) 08/25/21 08/25/21 08/25/21 Range/Units 09:26 16:02 23:44 WBC 16.1 H 15.7 H (3.8-10.6) k/uL RBC 2.44 L 2.94 L (3.80-5.40) m/uL Hgb 7.5 L 9.3 L D (11.4-16.0) gm/dL Hct 24.4 L 29.2 L (34.0-46.0) % MCHC 30.8 L (31.0-37.0) g/dL RDW 20.6 H 19.0 H (11.5-15.5) % Neutrophils # 14.7 H 14.5 H (1.3-7.7) k/uL Lymphocytes # 0.7 L 0.5 L (1.0-4.8) k/uL Potassium (3.5-5.1) mmol/L BUN (7-17) mg/dL Glucose (74-99) mg/dL AST (14-36) U/L Total Protein (6.3-8.2) g/dL Albumin (3.5-5.0) g/dL Procalcitonin (0.02-0.09) ng/mL Crossmatch See Detail 08/26/21 08/26/21 08/26/21 Range/Units 06:01 06:01 06:01 WBC 15.4 H (3.8-10.6) k/uL RBC 2.91 L (3.80-5.40) m/uL Hgb 9.1 L (11.4-16.0) gm/dL Hct 28.4 L (34.0-46.0) % MCHC (31.0-37.0) g/dL RDW 19.2 H (11.5-15.5) % Neutrophils # 14.0 H (1.3-7.7) k/uL Lymphocytes # 0.7 L (1.0-4.8) k/uL Potassium 3.3 L (3.5-5.1) mmol/L BUN 30 H (7-17) mg/dL Glucose 107 H (74-99) mg/dL AST 38 H (14-36) U/L Total Protein 5.0 L (6.3-8.2) g/dL Albumin 2.7 L (3.5-5.0) g/dL Procalcitonin 0.40 H (0.02-0.09) ng/mL Crossmatch Microbiology - Last 24 Hours (Table) 08/25/21 12:00 Urine Culture - Preliminary Urine,Clean Catch Assessment and Plan Assessment: Acute urinary tract infection with enterococcus, group D Possible sepsis with leukocytosis and tachycardia Worsening acute abdominal wall and pelvic hematoma and possible urinary bladder hematoma Right pelvic hematoma indicating with urinary bladder Acute blood loss anemia, secondary to above. Heterogeneous area of the first and second part of the duodenum 2.1 x 3.2 x 3.8 cm Recent history of covid Pneumonia COPD, no acute exacerbation History of DVT on warfarin (on hold) History of atrial fibrillation on warfarin with rate controlled Multiple myeloma, she follows up with Dr. Beatty. Last treatment was one week prior to admission to last hospital Chronic leukocytosis Plan: This is a pleasant 86 his old female who presents with multiple hematomas, duodenal lesion Continue with monitoring hemoglobin Hold Lovenox and warfarin, Surgical team consult Starting is seen and continue with normal saline, follow-up urine culture. Also we will consult cardiology and hematology/oncology teams Patient is considering more comfort measures Labs and medication were reviewed.. Continue same treatment. Continue with symptomatic treatment. Resume home medication. Monitor lytes and vitals. DVT and GI prophylaxis. Further recommendations depends on the clinical course of the patient DVT prophylaxis: No anticoagulation in view of hematoma and bleeding GI Prophylaxis: Protonix PT/OT: From ECF Prognosis is guarded
[2021-08-26 21:14] LABS: Amylase 121 U/L (30-110); Lipase 187 U/L (23-300)
[2021-08-26] MEDS: DULoxetine HCL 60 MG CAPSULE.DR PO SCH (22:17)
[2021-08-26] MEDS: MONTELUKAST 10 MG TAB PO SCH (22:17)
[2021-08-26] MEDS: LATANOPROST 0.005% OPHTH DROPS 2.5 ML BTL BOTH EYES SCH (22:17)
[2021-08-26] MEDS: AMPICILLIN-SULBACTAM 3 GM in SODIUM CHLORIDE 0.9% 100 ML IVPB SCH (22:24)
[2021-08-27] MEDS ORDERED: PIPERACILLIN-TAZOBACTAM 3.375 GM in SODIUM CHLORIDE 0.9% 100 ML IVPB SCH ×2
[2021-08-27] MEDS: ALPRAZolam 0.25 MG TAB PO PRN (00:11)
[2021-08-27] MEDS: HYDROcodone/APAP 5-325MG 1 EACH TAB PO PRN ×2 (02:37→17:21)
[2021-08-27] MEDS: AMPICILLIN-SULBACTAM 3 GM in SODIUM CHLORIDE 0.9% 100 ML IVPB SCH ×4 (02:37→20:33)
[2021-08-27] MEDS: HYDROmorphone 0.5 MG/0.5 ML SYRINGE IVP PRN ×2 (04:05→09:07)
[2021-08-27] MEDS: ALBUTEROL NEBULIZED 2.5 MG/3 ML INHALATION SCH ×4 (08:25→21:31)
[2021-08-27] MEDS: SYMBICORT 160-4.5 MCG INHALER INHALATION SCH ×2 (08:28→21:31)
[2021-08-27] MEDS: METOPROLOL TARTRATE 25 MG TAB PO SCH ×2 (09:14→17:21)
[2021-08-27] MEDS: FUROSEMIDE 20 MG TAB PO SCH (09:14)
[2021-08-27] MEDS: GABAPENTIN 400 MG CAP PO SCH ×2 (09:15→20:32)
[2021-08-27] MEDS: DOCUSATE 100 MG CAP PO SCH (09:15)
[2021-08-27] MEDS: PANTOPRAZOLE 40 MG/10 ML VIAL IVP SCH ×2 (09:17→20:32)
--- NOTE | 2021-08-27 09:28 | P.GSCN ---
History of Present Illness Consult date: 08/27/21 Reason for Consult: Retroperitoneal hematoma Requesting physician: Edgardo Mancuso History of present illness: This is an 86-year-old female with past medical history of DVT, rheumatoid arthritis, hyperlipidemia, hypertension, COPD, chronic anemia, and recent hospitalization for Covid pneumonia who was discharged to rehab after prolonged stay. Two days ago she was sent in from [facility] with concerns of possible GI bleed. They noted that she had blood in her brief with clots. Upon evaluation in the emergency department was noted that their was old blood on the labia none near the rectum. Bowel movements were brown. Patient has a history of chronic anemia and presented with a hemoglobin of 7.5. At that time she was transfused 1 unit of PRBC transfusion. Patient has been reporting increased lower abdominal pain. She states she is unsure where the bleeding was coming from. During her last admission she underwent CT of the abdomen and pelvis on 08/12/2021 that showed interval enlargement of left anterior abdominal wall inferior hematoma as well as right anterior pelvic hematoma. With apparent complete collapse of urinary bladder likely due to mass effect by the anterior pelvic hematoma. Hematoma within the urinary bladder cannot be excluded. During this admission she underwent a pelvic ultrasound that showed hematoma, followed by an abdominal pelvis CT with contrast that showed progressive enlar gement of left inferior retroperitoneal hematoma inseparable from left psoas muscle with subtle tiny linear hypodensities within concerning for active bleeding. There was newly seen heterogeneous area along the anterior aspect of first/second part of the duodenum. Gen. surgery was consulted and had ordered another CT of the abdomen and pelvis that was completed yesterday 08/26/2021 that showed progressive left retroperitoneal hematoma with hyperdensity concerning for ongoing active bleeding. Recommend correlation with hemoglobin level vascular surgery vascular intervention consultation. Right pelvic hematoma demonstrating definite communication with the urinary bladder as described. Vascular surgery was put on consult for evaluation of retroperitoneal hematoma. Patient is denying any shortness of breath or chest pain. States she does have some abdominal pain. She is also stating she has done she does not want any further intervention. WBC 15.4 hemoglobin 9.1 hematocrit 28 platelet count 162,000 INR 1.1. Review of Systems A 14 point review systems was completed all pertinent positives and negatives as stated in the HPI. Past Medical History Past Medical History: Asthma, Cancer, COPD, Deep Vein Thrombosis (DVT), Hyperlipidemia, Hypertension, Osteoarthritis (OA), Rheumatoid Arthritis (RA), Skin Disorder Additional Past Medical History / Comment(s): Hx. 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 RIGHT KNEE REPLACEMENT X 2., should er surgeries , hiatal hernia repair, I&D L inguinal abscess, right wrist surgery Past Anesthesia/Blood Transfusion Reactions: No Reported Reaction Type of Cardiac Device: Permanent Pacemaker Device Placement Date:: October 2012 Past Psychological History: No Psychological Hx Reported Smoking Status: Former smoker Past Alcohol Use History: None Reported Past Drug Use History: None Reported - Past Family History Father Additional Family Medical History / Comment(s): Father pulmonary fibrosis Mother Family Medical History: Cancer Sister(s) Additional Family Medical History / Comment(s): melanoma Medications and Allergies Home Medications Medication Instructions Recorded Confirmed Type Bimatoprost [Lumigan 0.01% Ophth 1 drop BOTH EYES HS@199911/07/13 08/25/21 History Soln] Montelukast [Singulair] 10 mg PO HS@199911/07/13 08/25/21 History allopurinoL [Zyloprim] 100 mg PO BID@0800,199907/09/14 08/25/21 History Omeprazole 20 mg PO BID@0800,1700 03/29/16 08/25/21 History DULoxetine HCL [Cymbalta] 60 mg PO HS@199911/22/18 08/25/21 History Folic Acid 1 mg PO DAILY@0800 02/10/20 08/25/21 History Multivitamins, Thera [Multivitamin 1 tab PO DAILY@169902/10/20 08/25/21 History (formulary)] Nitroglycerin Sl Tabs [Nitrostat] 0.4 mg SUBLINGUAL Q5M PRN 02/10/20 08/25/21 History Atorvastatin [Lipitor] 20 mg PO DAILY@169908/31/20 08/25/21 History Metoprolol Tartrate [Lopressor] 25 mg PO BID@08,169908/31/20 08/25/21 History Acyclovir 400 mg PO BID@799,199908/03/21 08/25/21 History Calcium Carbonate/Vitamin D3 1 cap PO DAILY@169908/03/21 08/25/21 History [Calcium 600 mg-D3 10 Mcg (400 Iu)] Docusate [Colace] 100 mg PO DAILY@79908/03/21 08/25/21 History Famotidine [Pepcid] 20 mg PO DAILY@79908/03/21 08/25/21 History Potassium Chloride ER [K-Dur 10] 10 meq PO DAILY@79908/03/21 08/25/21 History Psyllium Husk 100% [Metamucil 6 gm PO DAILY@79908/03/21 08/25/21 History Packet] ondansetron HCL [Zofran] 8 mg PO Q6H PRN 08/03/21 08/25/21 History Acetaminophen Tab [Tylenol] 650 mg PO Q6HR PRN tab 08/19/21 08/25/21 Rx Albuterol Inhaler [Ventolin Hfa 2 puff INHALATION RT-Q2H PRN gm 08/19/21 08/25/21 Rx Inhaler] Albuterol Inhaler [Ventolin Hfa 2 puff INHALATION RT-QID 08/19/21 08/25/21 Rx Inhaler] guaiFENesin-DM 100-10MG/5ML 10 ml PO Q6HR PRN ml 08/19/21 08/25/21 Rx [Robitussin DM] hydrALAZINE HCL [Apresoline] 25 mg PO QID PRN tab 08/19/21 08/25/21 Rx Ascorbic Acid [Vitamin C] 1,000 mg PO DAILY@169908/25/21 08/25/21 History Budesonide-Formot 160-4.5 Mcg 2 puff INHALATION RT-BID@0800,169908/25/21 08/25/21 History [Symbicort 160-4.5 Mcg Inhaler] Cholecalciferol [Vitamin D3 (125 125 mcg PO DAILY@169908/25/21 08/25/21 History Mcg = 5000 Iu)] Enoxaparin [Lovenox] 150 mg SQ DAILY@1700 08/25/21 08/25/21 History Furosemide [Lasix] 60 mg PO DAILY@0800 08/25/21 08/25/21 History Gabapentin [Neurontin] 400 mg PO BID@0800,2100 08/25/21 08/25/21 History HYDROcodone/APAP 5-325MG [Buena 1 tab PO Q6H PRN 08/25/21 08/25/21 History 5-325] Magnesium Hydroxide [Milk of 2,400 mg PO Q48H PRN 08/25/21 08/25/21 History Magnesia] Na Phos,M-B/Na Phos,Di-Ba [Fleet 133 ml RECTAL DAILY PRN 08/25/21 08/25/21 History Adult] Sodium Bicarbonate Tab 650 mg PO BID@0800,1700 08/25/21 08/25/21 History Tiotropium 2.5 Mcg/Puff [Spiriva 2 puff INHALATION RT-DAILY@0808/25/21 08/25/21 History Respimat 2.5 Mcg] Warfarin [Coumadin] 2.5 mg PO HS@209908/25/21 08/25/21 History Zinc Gluconate [Zinc] 50 mg PO DAILY@17008/25/21 08/25/21 History bisacodyL [Dulcolax] 10 mg RECTAL DAILY PRN 08/25/21 08/25/21 History predniSONE See Taper PO DAILY 08/25/21 08/25/21 History Allergies Allergy/AdvReac Type Severity Reaction Status Date / Time LUNA Inhibitors AdvReac Cough Verified 08/25/21 08:54 IV STEROIDS Allergy Itching Uncoded 08/25/21 08:36 tape Allergy Unknown Uncoded 08/25/21 08:36 Surgical - Exam Vital Signs Temp Pulse Resp BP Pulse Ox 98.0 F 98 18 113/83 99 08/25/21 08:28 08/25/21 08:28 08/25/21 08:28 08/25/21 08:28 08/25/21 08:28 General appearance: The patient is alert, oriented, appears in no acute distress. HET: Head is normocephalic and atraumatic. Pupils are equal and reactive. Neck: Supple without lymphadenopathy. Trachea midline. Heart: S1 S2. Irregularly irregular rate and rhythm. Lungs: Diminished. Abdomen: Soft, tender in lower abdominal region, nondistended. Extremities: Normal skin color and turgor. Neurological: No focal deficits. Results - Labs 08/26/21 06:01 08/26/21 06:01 Abnormal Lab Results - Last 24 Hours (Table) 08/26/21 08/26/21 Range/Units 06:01 20:30 Amylase 121 H (30-110) U/L Procalcitonin 0.40 H (0.02-0.09) ng/mL Microbiology - Last 24 Hours (Table) 08/25/21 12:00 Urine Culture - Preliminary Urine,Clean Catch Group D Enterococcus - Imaging Comments: CT abdomen and pelvis with contrast 08/26/2021: showed progressive left retroperitoneal hematoma with hyperdensity concerning for ongoing active bleeding. Recommend correlation with hemoglobin level vascular surgery vascular intervention consultation. Right pelvic hematoma demonstrating definite com munication with the urinary bladder as described. Vascular surgery was put on consult for evaluation of retroperitoneal hematoma. CT abdomen pelvis with contrast 08/25/2021: Progressive enlargement of the left inferior retroperitoneal hematoma inseparable from the left psoas muscle with subtle tiny linear hypodensities within concerning for active bleeding. Recommend correlation with hemoglobin level vascular surgery/vascular intervention consultation. Newly seen heterogeneous area along the anterior aspect of the first/second part of the duodenum as described above, not appreciated previously. There is nonspecific and could be related to duodenal diverticulum that was not well appreciated previously however underlying contained perforation of a duodenal ulcer or other acute inflammatory/infectious process at that location cannot be excluded. Recommend clinical correlation further workup. Pelvic ultrasound: Unable to assess pelvic anatomy due to large abdominal wall hematomas. Assessment and Plan Assessment: 1. Large left anterior abdominal wall inferior hematoma 2. Right pelvic hematoma 3. Atrial fibrillation on Coumadin. Currently on hold 4. COPD 5. Chronic anemia with acute blood loss anemia 6. Hypertension 7. Hyperlipidemia 8. Rheumatoid arthritis Plan: 1. Continue symptomatic and supportive care 2. Hold anticoagulation indefinitely 3. Await recommendations from urology 4. Continue with conservative management, no plans at this time for any vascular surgical intervention 5. Await primary medicine team to discuss possible palliative/hospice care with patient as patient is voicing that she no longer wants intervention 6. Daily CBC, transfuse off per protocol Thank you for this consultation, we will continue to follow. The impression and plan of care has been dictated as directed. Dr. Cortez I performed a history and examination of this patient, discussed the same with the dictator. I agree with the dictator's note ,documented as a scribe. Any a dditional findings or plans will be noted.
[2021-08-27] MEDS ORDERED: SODIUM CHLORIDE 0.9% 500 ML 500 ML IV ONE (10:25)
[2021-08-27 10:55] LABS: Calcium 8.4 mg/dL (8.4-10.2); Potassium 3.3 mmol/L (3.5-5.1)
[2021-08-27] MEDS ORDERED: ACYCLOVIR 200 MG CAP ONE (12:00)
[2021-08-27] MEDS ORDERED: ALBUTEROL NEBULIZED 2.5 MG/3 ML INHALATION ONE (12:00)
[2021-08-27] MEDS ORDERED: HYDROcodone/APAP 5-325MG 1 EACH TAB ONE (12:00)
[2021-08-27] MEDS ORDERED: HYDROmorphone 0.5 MG/0.5 ML SYRINGE ONE (12:00)
[2021-08-27 14:42] LABS: Anisocytosis Slight; HCT 25.4 % (34.0-46.0); HGB 7.8 gm/dL (11.4-16.0); Hypochromasia Marked; MCH 31.8 pg (25.0-35.0); MCHC 30.6 g/dL (31.0-37.0); Macrocytosis Marked; Mean Platelet Volume 9.7; Platelet Count 134 k/uL (150-450); Poikilocytosis Slight; RBC 2.44 m/uL (3.80-5.40); RDW 19.7 % (11.5-15.5); WBC 10.3 k/uL (3.8-10.6)
--- NOTE | 2021-08-27 14:42 | P.PN ---
Subjective Progress Note Date: 08/27/21 HISTORY OF PRESENT ILLNESS: This is a 86-year-old female with history of chronic atrial fibrillation, deep venous thrombosis, rheumatoid arthritis, hypertension, hyperlipidemia and COPD who was discharged home recently after prolonged stay. She was sent home on Coumadin. Patient is now readmitted to the hospital with abdominal discomfort and swelling. She was noted to have a temporal hematoma, both on the right and left side signs of active bleeding. This is documented by computed tomography scan of the abdomen and pelvis apparently that may be communication with hematom a to the bladder. She's been seen by surgical team and monitoring her carefully. There is also some lesion near the duodenum. Her main complaints into the abdominal pain. Denies any chest pain or shortness of breath. Patient was anemic on admission and has received blood transfusion. Her Coumadin is held and patient was given vitamin K. We consulted to see the patient regarding atrial fibrillation management. Currently, her heart rate is not high. She is going to be off Coumadin at this time. 08/27/2021 Patient examined this morning at the bedside. Patient denies chest pain or pressure. She denies shortness of breath. Patient does report having mild abdominal discomfort. Her anticoagulation has been placed on hold. PHYSICAL EXAM: VITAL SIGNS: Reviewed. GENERAL: Well-developed in no acute distress. NECK: Supple. No JVD or thyromegaly LUNGS: Respirations even and unlabored. Lungs essentially clear to auscultation bilaterally. HEART: Irregular rate and rhythm. S1 and S2 heard. EXTREMITIES: Normal range of motion. No clubbing or cyanosis. Peripheral pulses intact. No lower extremity edema ASSESSMENT: Large left anterior abdominal wall inferior hematoma Right pelvic hematoma Chronic atrial fibrillation on Coumadin Chronic anemia with acute blood loss anemia COPD Hypertension Hyperlipidemia PLAN: Continue to hold anticoagulation Continue additional cardiac medications Further recommendations pending patient course Nurse practitioner note has been reviewed by physician. Signing provider agrees with the documented findings, assessment, and plan of care. Objective - Vital Signs Vital signs: Vital Signs Temp 98.9 F 08/26/21 19:55 Pulse 97 08/27/21 02:50 Resp 18 08/27/21 02:50 BP 102/63 08/27/21 02:50 Pulse Ox 99 08/27/21 02:50 FiO2 Intake & Output 08/26/21 08/27/21 08/27/21 18:59 06:59 18:59 Output Total 150 350 Balance -150 -350 Weight 95.254 kg 97 kg Output: Urine 150 350 Other: # Voids 1 - Labs CBC & Chem 7: 08/26/21 06:01 08/27/21 09:12 Labs: Abnormal Lab Results - Last 24 Hours (Table) 08/26/21 08/27/21 Range/Units 20:30 09:12 Potassium 3.3 L (3.5-5.1) mmol/L BUN 26 H (7-17) mg/dL Glucose 71 L (74-99) mg/dL Amylase 121 H (30-110) U/L Microbiology - Last 24 Hours (Table) 08/25/21 12:00 Urine Culture - Preliminary Urine,Clean Catch Group D Enterococcus
--- NOTE | 2021-08-27 14:42 | P.PN ---
Subjective Progress Note Date: 08/27/21 CHIEF COMPLAINT: Abdominal pain and possible GI bleed HISTORY OF PRESENT ILLNESS: Patient continues to have abdominal pain. Also reporting lower back pain. Has evidence of hematuria. Patient has most comfort with laying on her left side. She was requesting pain medication. Patient also stating "I don't want anything else done." Patient seen by vascular surgery no intervention recommended. Urology consult pending. Afebrile. Mild tachycardia during the evening. Heart rate currently 97. CBC pending. Sodium 137 potassium is 3.3 creatinine 0.72 lipase 63 amylase 76 PHYSICAL EXAM: VITAL SIGNS: Reviewed. GENERAL: Well-developed in no acute distress. HEENT: No sclera icterus. Extraocular movements grossly intact. Moist buccal mucosa. Head is atraumatic, normocephalic. ABDOMEN: Soft. Diffuse tenderness. Bruising noted on the right lower abdomen NEUROLOGIC: Alert and oriented. Cranial nerves II through XII grossly intact. ASSESSMENT: 1. Abnormality in periduodenal region. No obvious perforation noted on repeat computed tomography scan with contrast per Dr. Mancuso 2. Left retroperitoneal hematoma with possible rebleeding 3. Suprapubic hematoma with concerns for fistula communication to the bladder 4. Anemia with acute blood loss anemia 5. History of atrial fibrillation. Coumadin on hold PLAN: -Continue supportive care -Awaiting urology evaluation. Cystogram has been ordered. -Continue pain medication as needed -Hold Coumadin indefinitely -Continue to monitor hemoglobin Physician Global President note has been reviewed by physician. Signing provider agrees with the documented findings, assessment, and plan of care. I have personally seen and examined the patient, reviewed the [employer]AC[employer]ER /PAs history, exam and MDM and agree with the assessment and plan as written. Based on total visit time, I have performed more than 50% of the visit. As above: Patient still complaining of pain. Says it is not much improved from yesterday. Medical scenario again discussed with the patient and today her 2 granddaughters are present at the bedside. Discussed the situation as it has progressed over the last 2 weeks. Patient is now no code. They were discussing possible comfort care measures but at least at this time plan is for continued medical conservative therapy. We'll try to improve analgesic pain control at this time. Continue antibiotics. Will follow. Objective - Vital Signs Vital signs: Vital Signs Temp 98.9 F 08/26/21 19:55 Pulse 97 08/27/21 02:50 Resp 18 08/27/21 02:50 BP 102/63 08/27/21 02:50 Pulse Ox 99 08/27/21 02:50 FiO2 Intake & Output 08/26/21 08/27/21 08/27/21 18:59 06:59 18:59 Output Total 150 350 Balance -150 -350 Weight 95.254 kg 97 kg Output: Urine 150 350 Other: # Voids 1 - Labs CBC & Chem 7: 08/26/21 06:01 08/27/21 09:12 Labs: Abnormal Lab Results - Last 24 Hours (Table) 08/26/21 08/27/21 Range/Units 20:30 09:12 Potassium 3.3 L (3.5-5.1) mmol/L BUN 26 H (7-17) mg/dL Glucose 71 L (74-99) mg/dL Amylase 121 H (30-110) U/L Microbiology - Last 24 Hours (Table) 08/25/21 12:00 Urine Culture - Preliminary Urine,Clean Catch Group D Enterococcus
[2021-08-27 14:52] LABS: Glucose,Whole Blood 89 mg/dL (75-99)
[2021-08-27 16:38] LABS: MCV 103.9 fL (80.0-100.0)
[2021-08-27] MEDS: ACYCLOVIR 200 MG CAP PO SCH ×2 (17:13→22:15)
[2021-08-27] MEDS: ATORVASTATIN 20 MG TAB PO SCH (17:20)
[2021-08-27] MEDS: CHOLECALCIFEROL 125 MCG (5000 IU) TABLET PO SCH (17:21)
[2021-08-27] MEDS: CALCIUM CARB-VIT D 500 MG-5 MCG TAB PO SCH (17:21)
--- NOTE | 2021-08-27 18:18 | P.PN ---
Subjective This is a pleasant 85 years old female with past medical history of deep venous thrombosis, rheumatoid arthritis that she follow-up with obstetrics nurse practitioner, hyperlipidemia, hypertension, osteoarthritis, COPD. she was recently discharged from hospital after a prolonged stay Patient is fully awake and oriented in looks calm, little anxious, she states she has some blood in her underwear his parents this morning, she does not know how much and where was coming from and she was sent to the hospital from her ECF Patient also complained of from increasing left abdominal wall swelling and tenderness, it looks bigger than last admission. She denies any other specific symptoms, no dizziness, no chest pain or shortness of breath. No abdominal pain, no nausea vomiting or diarrhea, no vaginal complaints, no urinary complaints. Patient vitals stable, systolic blood pressure is 120 to 130s. She is a slightly tachycardic more than 90s. She has chronic leukocytosis, obesity is 16.1, hemoglobin 8.2, down to 7.5, hemoglobin dropped last admission was entered between 8-9. Platelet count is normal at 187. INR is 2.3 BMP is unremarkable, BUN is 27, creatinine 0.8. Magnesium 1.8. Urinalysis showing hematuria more than 182 and WBC more than 182. CT of the abdomen and pelvis with contrast showing heterogenous area of the first and second part of the duodenum 2.1 x 3.2 x 3.8 cm. Also there is increased pelvic and left abdominal wall hematoma 14.9 up to 16.5 and 11.8 up to 15.6 cm respectively. Also a possible urinary bladder hematoma. On admission she started on IV fluid, vitamin K 5 mg and pain medication. ER team also ordered blood 08/26/2021 Patient is fully awake and oriented, lying in bed in mild to moderate distress due to pain, she is receiving Dilaudid for pain control. Patient also made nothing by mouth for her intra-abdominal hematoma and duodenal lesion with suspected perforation, CT of the abdomen and pelvis without contrast repeated and showed progressive left retroperitoneal hematoma concerning for active bleeding but hemoglobin is stable today at 9.1 compared to 7.5 yesterday. Also she has right pelvic hematoma, indicating with urinary bladder. Urine culture is actually going to euro cocci, group D and patient with tachycardia could be related to infection and bleeding and leukocytosis concerning for sepsis. Patient continued on normal saline at 100 mL per hour, Unasyn is added. Proton discussed started elevated 0.4. WBCs 15.4. INR is back to normal at 1.1. Several consultants on the case Patient was to be DO NOT RESUSCITATE today and she was considering comfort care. As per staff granddaughter is at bedside and aware of patient plan for more conservative uncomfortable measures. 08/27/2021 Patient remains awake and still have uncontrolled pain, heart Dilaudid increased to 1 mg every 2 hours. Blood pressure is borderline and therefore a bolus of 500 mL is a provided. She remains on Unasyn and normal saline 100 mL per hour. Coumadine is a stopped and recommended to discontinue it even on discharge, this is the second episode of severe bleeding within short period of time. I discussed with the patient her wishes for comfort measures, she wants to wait now and discussed with Dr. Cantu. I discussed the case with Dr. Cantu myself, I would recommend to continue with medical management for 2-3 days to see patient response to treatment. Patient has continuous oozing of blood per urethral orifice Urology team has been evaluated for possible pelvic hematoma connected to the urinary bladder. However patient is a very poor surgical candidate. Prognosis remains guarded Objective - Vital Signs Vital signs: Vital Signs Temp 98.9 F 08/26/21 19:55 Pulse 97 08/27/21 11:37 Resp 18 08/27/21 02:50 BP 102/63 08/27/21 02:50 Pulse Ox 99 08/27/21 02:50 FiO2 Intake & Output 08/26/21 08/27/21 08/27/21 18:59 06:59 18:59 Output Total 150 350 Balance -150 -350 Weight 95.254 kg 97 kg Output: Urine 150 350 Other: # Voids 1 - Exam -GENERAL: The patient is alert and oriented x3, not in any acute distress. Well developed, well nourished. Generally weak. Obese HEENT: Pupils are round and equally reacting to light. EOMI. No scleral icterus. No conjunctival pallor. Normocephalic, atraumatic. No pharyngeal erythema. No thyromegaly. CARDIOVASCULAR: S1 and S2 present. No murmurs, rubs, or gallops. PULMONARY: Chest is clear to auscultation, no wheezing or crackles. -ABDOMEN: Soft, nontender, nondistended, normoactive bowel sounds. No palpable organomegaly. Large fluctuant Left abdominal wall swelling MUSCULOSKELETAL: No joint swelling or deformity. EXTREMITIES: No cyanosis, clubbing, or pedal edema. NEUROLOGICAL: Gross neurological examination did not reveal any focal deficits. SKIN: No rashes. No petechiae - Labs CBC & Chem 7: 08/27/21 09:12 08/27/21 09:12 Labs: Abnormal Lab Results - Last 24 Hours (Table) 08/26/21 08/27/21 Range/Units 20:30 09:12 Potassium 3.3 L (3.5-5.1) mmol/L BUN 26 H (7-17) mg/dL Glucose 71 L (74-99) mg/dL Amylase 121 H (30-110) U/L Microbiology - Last 24 Hours (Table) 08/25/21 12:00 Urine Culture - Preliminary Urine,Clean Catch Group D Enterococcus Assessment and Plan Assessment: Acute urinary tract infection with enterococcus, group D Possible sepsis with leukocytosis and tachycardia Worsening acute abdominal wall and pelvic hematoma and possible urinary bladder hematoma Right pelvic hematoma indicating with urinary bladder Acute blood loss anemia, secondary to above. Heterogeneous area of the first and second part of the duodenum 2.1 x 3.2 x 3.8 cm Recent history of covid Pneumonia COPD, no acute exacerbation History of DVT on warfarin (on hold) History of atrial fibrillation on warfarin with rate controlled Multiple myeloma, she follows up with Dr. Beatty. Last treatment was one week prior to admission to last hospital Chronic leukocytosis Plan: This is a pleasant 86 his old female who presents with multiple hematomas, duodenal lesion Continue with monitoring hemoglobin Hold Lovenox and warfarin, Surgical team consult Starting is seen and continue with normal saline, follow-up urine culture. Also we will consult cardiology and hematology/oncology teams Labs and medication were reviewed.. Continue same treatment. Continue with symptomatic treatment. Resume home medication. Monitor lytes and vitals. DVT and GI prophylaxis. Further recommendations depends on the clinical course of the patient DVT prophylaxis: No anticoagulation in view of hematoma and bleeding GI Prophylaxis: Protonix PT/OT: From ECF prognosis remains guarded Patient has DO NOT RESUSCITATE order based upon her wishes
[2021-08-27] MEDS: HYDROmorphone 1 MG/ML 1 ML SYRINGE IVP PRN (20:32)
[2021-08-27] MEDS: DULoxetine HCL 60 MG CAPSULE.DR PO SCH (20:32)
[2021-08-27] MEDS: MONTELUKAST 10 MG TAB PO SCH (20:32)
[2021-08-27] MEDS: LATANOPROST 0.005% OPHTH DROPS 2.5 ML BTL BOTH EYES SCH (20:33)
--- NOTE | 2021-08-27 21:48 | P.GSCN ---
History of Present Illness Consult date: 08/27/21 Reason for Consult: Pelvic hematoma, possible bladder perforation Requesting physician: Edgardo Mancuso History of present illness: The patient is an 86-year-old white female hospitalized earlier this month with Covid pneumonia. She was found at that time to have a spontaneous rectus sheath hematoma, perhaps related to the Coumadin she takes for atrial fibrillation. She has experienced increased lower abdominal pain. She has noted blood in her brief, and it now appears that this is the result of hematuria. A repeat CT scan with contrast has shown an increase in the size of the abdominal wall hematoma, as well as a smaller right-sided pelvic hematoma. Contrast was seen within the pelvic hematoma, suggesting the possibility of a bladder perforation. Her urologic history is unremarkable. Review of Systems - Constitutional Denies chills, Denies fever - Gastrointestinal Reports abdominal pain - Genitourinary Genitourinary: Reports as per HPI Past Medical History Past Medical History: Asthma, Cancer, COPD, Deep Vein Thrombosis (DVT), Hyperlipidemia, Hypertension, Osteoarthritis (OA), Rheumatoid Arthritis (RA), Skin Disorder Additional Past Medical History / Comment(s): Hx. gout, DVT L upper arm, dermatitis, bilateral glaucoma, bradycardia- pacemaker, degenerative disc disease, cervical and back pain, MULTIMYLOMA LAST TX THURS History of Any Multi-Drug Resistant Organisms: None Reported Past Surgical History: Adenoidectomy, Appendectomy, Cholecystectomy, Hernia R epair, Orthopedic Surgery, Pacemaker, Tonsillectomy, Tubal Ligation Additional Past Surgical History / Comment(s): Hx throat nodule removed, mole left eyelid, D&C, bilat cataracts removed . RIGHT KNEE REPLACEMENT X 2., shoulder surgeries , hiatal hernia repair, I&D L inguinal abscess, right wrist surgery Past Anesthesia/Blood Transfusion Reactions: No Reported Reaction Type of Cardiac Device: Permanent Pacemaker Device Placement Date:: October 2012 Past Psychological History: No Psychological Hx Reported Smoking Status: Former smoker Past Alcohol Use History: None Reported Past Drug Use History: None Reported - Past Family History Father Additional Family Medical History / Comment(s): Father pulmonary fibrosis Mother Family Medical History: Cancer Sister(s) Additional Family Medical History / Comment(s): melanoma Medications and Allergies Home Medications Medication Instructions Recorded Confirmed Type Bimatoprost [Lumigan 0.01% Ophth 1 drop BOTH EYES HS@199911/07/13 08/25/21 History Soln] Montelukast [Singulair] 10 mg PO HS@199911/07/13 08/25/21 History allopurinoL [Zyloprim] 100 mg PO BID@08,199907/09/14 08/25/21 History Omeprazole 20 mg PO BID@0800,1700 03/29/16 08/25/21 History DULoxetine HCL [Cymbalta] 60 mg PO HS@199911/22/18 08/25/21 History Folic Acid 1 mg PO DAILY@0802/10/20 08/25/21 History Multivitamins, Thera [Multivitamin 1 tab PO DAILY@169902/10/20 08/25/21 History (formulary)] Nitroglycerin Sl Tabs [Nitrostat] 0.4 mg SUBLINGUAL Q5M PRN 02/10/20 08/25/21 History Atorvastatin [Lipitor] 20 mg PO DAILY@169908/31/20 08/25/21 History Metoprolol Tartrate [Lopressor] 25 mg PO BID@0800,17008/31/20 08/25/21 History Acyclovir 400 mg PO BID@0800,199908/03/21 08/25/21 History Calcium Carbonate/Vitamin D3 1 cap PO DAILY@169908/03/21 08/25/21 History [Calcium 600 mg-D3 10 Mcg (400 Iu)] Docusate [Colace] 100 mg PO DAILY@0808/03/21 08/25/21 History Famotidine [Pepcid] 20 mg PO DAILY@79908/03/21 08/25/21 History Potassium Chloride ER [K-Dur 10] 10 meq PO DAILY@79908/03/21 08/25/21 History Psyllium Husk 100% [Metamucil 6 gm PO DAILY@79908/03/21 08/25/21 History Packet] ondansetron HCL [Zofran] 8 mg PO Q6H PRN 08/03/21 08/25/21 History Acetaminophen Tab [Tylenol] 650 mg PO Q6HR PRN tab 08/19/21 08/25/21 Rx Albuterol Inhaler [Ventolin Hfa 2 puff INHALATION RT-Q2H PRN gm 08/19/21 08/25/21 Rx Inhaler] Albuterol Inhaler [Ventolin Hfa 2 puff INHALATION RT-QID gm 08/19/21 08/25/21 Rx Inhaler] guaiFENesin-DM 100-10MG/5ML 10 ml PO Q6HR PRN ml 08/19/21 08/25/21 Rx [Robitussin DM] hydrALAZINE HCL [Apresoline] 25 mg PO QID PRN tab 08/19/21 08/25/21 Rx Ascorbic Acid [Vitamin C] 1,000 mg PO DAILY@169908/25/21 08/25/21 History Budesonide-Formot 160-4.5 Mcg 2 puff INHALATION RT-BID@0800,169908/25/21 08/25/21 History [Symbicort 160-4.5 Mcg Inhaler] Cholecalciferol [Vitamin D3 (125 125 mcg PO DAILY@169908/25/21 08/25/21 History Mcg = 5000 Iu)] Enoxaparin [Lovenox] 150 mg SQ DAILY@169908/25/21 08/25/21 History Furosemide [Lasix] 60 mg PO DAILY@0808/25/21 08/25/21 History Gabapentin [Neurontin] 400 mg PO BID@0800,209908/25/21 08/25/21 History HYDROcodone/APAP 5-325MG [[place] 1 tab PO Q6H PRN 08/25/21 08/25/21 History 5-325] Magnesium Hydroxide [Milk of 2,400 mg PO Q48H PRN 08/25/21 08/25/21 History Magnesia] Na Phos,M-B/Na Phos,Di-Ba [Fleet 133 ml RECTAL DAILY PRN 08/25/21 08/25/21 History Adult] Sodium Bicarbonate Tab 650 mg PO BID@0800,1700 08/25/21 08/25/21 History Tiotropium 2.5 Mcg/Puff [Spiriva 2 puff INHALATION RT-DAILY@0808/25/21 08/25/21 History Respimat 2.5 Mcg] Warfarin [Coumadin] 2.5 mg PO HS@209908/25/21 08/25/21 History Zinc Gluconate [Zinc] 50 mg PO DAILY@169908/25/21 08/25/21 History bisacodyL [Dulcolax] 10 mg RECTAL DAILY PRN 08/25/21 08/25/21 History predniSONE See Taper PO DAILY 08/25/21 08/25/21 History Allergies Allergy/AdvReac Type Severity Reaction Status Date / Time LUNA Inhibitors AdvReac Cough Verified 08/25/21 08:54 IV STEROIDS Allergy Itching Uncoded 08/25/21 08:36 tape Allergy Unknown Uncoded 08/25/21 08:36 Surgical - Exam Vital Signs Temp Pulse Resp BP Pulse Ox 98.0 F 98 18 113/83 99 08/25/21 08:28 08/25/21 08:28 08/25/21 08:28 08/25/21 08:28 08/25/21 08:28 - General well developed, well nourished, no distress - Respiratory normal respiratory effort - Abdomen Soft, non-distended. Lower abdominal tenderness to palpation is noted, without guarding or rebound. - Psychiatric oriented to time, oriented to person, oriented to place, speech is normal, memory intact Results - Labs 08/27/21 09:12 08/27/21 09:12 Abnormal Lab Results - Last 24 Hours (Table) 08/26/21 08/26/21 08/26/21 Range/Units 06:01 06:01 20:30 Potassium 3.3 L (3.5-5.1) mmol/L BUN 30 H (7-17) mg/dL Glucose 107 H (74-99) mg/dL AST 38 H (14-36) U/L Total Protein 5.0 L (6.3-8.2) g/dL Albumin 2.7 L (3.5-5.0) g/dL Amylase 121 H (30-110) U/L Procalcitonin 0.40 H (0.02-0.09) ng/mL Microbiology - Last 24 Hours (Table) 08/25/21 12:00 Urine Culture - Preliminary Urine,Clean Catch Group D Enterococcus Diabetes panel 08/26/21 Range/Units 06:01 Sodium 139 (137-145) mmol/L Potassium 3.3 L (3.5-5.1) mmol/L Chloride 106 (98-107) mmol/L Carbon Dioxide 30 (22-30) mmol/L BUN 30 H (7-17) mg/dL Creatinine 0.86 (0.52-1.04) mg/dL Glucose 107 H (74-99) mg/dL Calcium 9.1 (8.4-10.2) mg/dL AST 38 H (14-36) U/L ALT 29 (4-34) U/L Alkaline Phosphatase 98 (38-126) U/L Total Protein 5.0 L (6.3-8.2) g/dL Albumin 2.7 L (3.5-5.0) g/dL Calcium panel 08/26/21 Range/Units 06:01 Calcium 9.1 (8.4-10.2) mg/dL Albumin 2.7 L (3.5-5.0) g/dL Pituitary panel 08/26/21 Range/Units 06:01 Sodium 139 (137-145) mmol/L Potassium 3.3 L (3.5-5.1) mmol/L Chloride 106 (98-107) mmol/L Carbon Dioxide 30 (22-30) mmol/L BUN 30 H (7-17) mg/dL Creatinine 0.86 (0.52-1.04) mg/dL Glucose 107 H (74-99) mg/dL Calcium 9.1 (8.4-10.2) mg/dL Adrenal panel 08/26/21 Range/Units 06:01 Sodium 139 (137-145) mmol/L Potassium 3.3 L (3.5-5.1) mmol/L Chloride 106 (98-107) mmol/L Carbon Dioxide 30 (22-30) mmol/L BUN 30 H (7-17) mg/dL Creatinine 0.86 (0.52-1.04) mg/dL Glucose 107 H (74-99) mg/dL Calcium 9.1 (8.4-10.2) mg/dL Total Bilirubin 1.1 (0.2-1.3) mg/dL AST 38 H (14-36) U/L ALT 29 (4-34) U/L Alkaline Phosphatase 98 (38-126) U/L Total Protein 5.0 L (6.3-8.2) g/dL Albumin 2.7 L (3.5-5.0) g/dL - Imaging CT scan - pelvis: report reviewed, image reviewed Assessment and Plan (1) Gross hematuria Current Visit: Yes Status: Acute Code(s): R31.0 - GROSS HEMATURIA SNOMED Code(s): 444753571 Plan: The patient indicated earlier today to Dr. Mancuso that she is not interested in undergoing any further evaluation or treatment. However, a cystogram had already been ordered and after I explained what this consists of she wishes to proceed with it. I am hopeful that this can be performed tomorrow. Time with Patient: Greater than 30
[2021-08-27] MEDS: SODIUM CHLORIDE 0.9% 1,000 ML IV SCH ×2 (22:16→22:18)
[2021-08-28] MEDS: AMPICILLIN-SULBACTAM 3 GM in SODIUM CHLORIDE 0.9% 100 ML IVPB SCH ×4 (03:42→20:37)
[2021-08-28] MEDS: SODIUM CHLORIDE 0.9% 1,000 ML IV SCH (05:05)
[2021-08-28] MEDS: HYDROmorphone 1 MG/ML 1 ML SYRINGE IVP PRN ×3 (06:14→21:44)
[2021-08-28] MEDS: ALBUTEROL NEBULIZED 2.5 MG/3 ML INHALATION SCH ×4 (07:30→21:06)
[2021-08-28] MEDS: SYMBICORT 160-4.5 MCG INHALER INHALATION SCH ×2 (07:31→21:05)
[2021-08-28] MEDS: GABAPENTIN 400 MG CAP PO SCH ×2 (08:35→20:37)
[2021-08-28] MEDS: ACYCLOVIR 200 MG CAP PO SCH ×2 (08:35→20:37)
[2021-08-28] MEDS: PANTOPRAZOLE 40 MG/10 ML VIAL IVP SCH ×2 (08:35→20:37)
[2021-08-28] MEDS: FUROSEMIDE 20 MG TAB PO SCH (08:35)
[2021-08-28] MEDS: DOCUSATE 100 MG CAP PO SCH (08:35)
[2021-08-28] MEDS: HYDROcodone/APAP 5-325MG 1 EACH TAB PO PRN (08:36)
[2021-08-28] MEDS: METOPROLOL TARTRATE 25 MG TAB PO SCH ×2 (08:36→17:44)
[2021-08-28 09:38] LABS: Anisocytosis Slight; Basophils % (A) 0 %; Eosinophils # (A) 0.2 k/uL (0-0.7); Eosinophils % (A) 3 %; HCT 25.5 % (34.0-46.0); HGB 7.8 gm/dL (11.4-16.0); Hypochromasia Marked; Lymphocytes # (A) 0.6 k/uL (1.0-4.8); Lymphocytes % (A) 8 %; MCHC 30.4 g/dL (31.0-37.0); MCV 101.9 fL (80.0-100.0); Macrocytosis Moderate; Mean Platelet Volume 8.7; Monocytes # (A) 0.3 k/uL (0-1.0); Monocytes % (A) 5 %; Neutrophils # (A) 5.8 k/uL (1.3-7.7); Neutrophils % (A) 83 %; Platelet Count 135 k/uL (150-450); Poikilocytosis Slight; RDW 19.8 % (11.5-15.5); WBC 6.9 k/uL (3.8-10.6)
--- NOTE | 2021-08-28 09:44 | P.PN ---
Subjective Progress Note Date: 08/28/21 HISTORY OF PRESENT ILLNESS: This is a 86-year-old female with history of chronic atrial fibrillation, deep venous thrombosis, rheumatoid arthritis, hypertension, hyperlipidemia and COPD who was discharged home recently after prolonged stay. She was sent home on Coumadin. Patient is now readmitted to the hospital with abdominal discomfort and swelling. She was noted to have a temporal hematoma, both on the right and left side signs of active bleeding. This is documented by computed tomography scan of the abdomen and pelvis apparently that may be communication with hematom a to the bladder. She's been seen by surgical team and monitoring her carefully. There is also some lesion near the duodenum. Her main complaints into the abdominal pain. Denies any chest pain or shortness of breath. Patient was anemic on admission and has received blood transfusion. Her Coumadin is held and patient was given vitamin K. We consulted to see the patient regarding atrial fibrillation management. Currently, her heart rate is not high. She is going to be off Coumadin at this time. 08/27/2021 Patient examined this morning at the bedside. Patient denies chest pain or pressure. She denies shortness of breath. Patient does report having mild abdominal discomfort. Her anticoagulation has been placed on hold. 08/28/2021 Patient examined this morning at the bedside. Patient denies chest pain or pressure. She denies shortness of breath. Patient does report having mild abdominal discomfort. Her anticoagulation has been placed on hold. PHYSICAL EXAM: VITAL SIGNS: Reviewed. GENERAL: Well-developed in no acute distress. NECK: Supple. No JVD or thyromegaly LUNGS: Respirations even and unlabored. Lungs essentially clear to auscultation bilaterally. HEART: Irregular rate and rhythm. S1 and S2 heard. EXTREMITIES: Normal range of motion. No clubbing or cyanosis. Peripheral pulses intact. No lower extremity edema ASSESSMENT: Large left anterior abdominal wall inferior hematoma Right pelvic hematoma Chronic atrial fibrillation on Coumadin Chronic anemia with acute blood loss anemia COPD Hypertension Hyperlipidemia PLAN: Continue to hold anticoagulation Continue additional cardiac medications No further inpatient recommendations from a cardiac standpoint We will sign off. Please reconsult if needed Nurse practitioner note has been reviewed by physician. Signing provider agrees with the documented findings, assessment, and plan of care. Objective - Vital Signs Vital signs: Vital Signs Temp 98.1 F 08/28/21 03:45 Pulse 95 08/28/21 07:41 Resp 18 05/27/22 03:45 BP 121/67 08/28/21 03:45 Pulse Ox 95 08/28/21 03:45 FiO2 Intake & Output 08/27/21 08/28/21 08/28/21 18:59 06:59 18:59 Output Total 1150 700 Balance -1150 -700 Output: Urine 1150 700 Other: Voiding Method External Catheter External Catheter - Labs CBC & Chem 7: 08/28/21 09:01 08/27/21 09:12 Labs: Abnormal Lab Results - Last 24 Hours (Table) 08/27/21 08/27/21 08/28/21 Range/Units 09:12 09:12 09:01 RBC 2.44 L 2.50 L (3.80-5.40) m/uL Hgb 7.8 L 7.8 L (11.4-16.0) gm/dL Hct 25.4 L 25.5 L (34.0-46.0) % MCV 103.9 H D 101.9 H (80.0-100.0) fL MCHC 30.6 L 30.4 L (31.0-37.0) g/dL RDW 19.7 H 19.8 H (11.5-15.5) % Plt Count 134 L 135 L (150-450) k/uL Lymphocytes # 0.6 L (1.0-4.8) k/uL Macrocytosis Marked A Potassium 3.3 L (3.5-5.1) mmol/L BUN 26 H (7-17) mg/dL Glucose 71 L (74-99) mg/dL Microbiology - Last 24 Hours (Table) 08/25/21 12:00 Urine Culture - Final Urine,Clean Catch Enterococcus faecalis
[2021-08-28 09:56] LABS: African American GFR (CKD) >90 (>60 ml/min/1.73 sqM); Anion Gap 6 mmol/L; Blood Urea Nitrogen 22 mg/dL (7-17); Calcium 8.1 mg/dL (8.4-10.2); Carbon Dioxide 26 mmol/L (22-30); Chloride 109 mmol/L (98-107); Glucose 62 mg/dL (74-99); Magnesium 1.4 mg/dL (1.6-2.3); Non-African American GFR(CKD) 80 (>60 ml/min/1.73 sqM); Potassium 3.4 mmol/L (3.5-5.1); Sodium 141 mmol/L (137-145)
[2021-08-28 10:27] LABS: Glucose,Whole Blood 70 mg/dL (75-99)
--- NOTE | 2021-08-28 10:29 | P.PN ---
Subjective Progress Note Date: 08/28/21 Patient seen and examined. Resting comfortably. Denies any significant pain, does have mild discomfort in her abdomen. No significant changes overall. Objective - Vital Signs Vital signs: Vital Signs Temp 98.1 F 08/28/21 03:45 Pulse 95 08/28/21 07:41 Resp 18 08/28/21 03:45 BP 121/67 08/28/21 03:45 Pulse Ox 95 08/28/21 03:45 FiO2 Intake & Output 08/27/21 08/28/21 08/28/21 18:59 06:59 18:59 Output Total 1150 700 Balance -1150 -700 Output: Urine 1150 700 Other: Voiding Method External Catheter External Catheter - Exam General appearance: The patient is alert, oriented, appears in no acute distress. HET: Head is normocephalic and atraumatic. Pupils are equal and reactive. Neck: Supple without lymphadenopathy. Trachea midline. Heart: S1 S2. Irregularly irregular rate and rhythm. Lungs: Diminished. Abdomen: Soft, tender in lower abdominal region, nondistended. Extremities: Normal skin color and turgor. Neurological: No focal deficits. - Labs CBC & Chem 7: 08/28/21 09:01 08/28/21 09:01 Labs: Abnormal Lab Results - Last 24 Hours (Table) 08/27/21 08/27/21 08/28/21 Range/Units 09:12 09:12 09:01 RBC 2.44 L 2.50 L (3.80-5.40) m/uL Hgb 7.8 L 7.8 L (11.4-16.0) gm/dL Hct 25.4 L 25.5 L (34.0-46.0) % MCV 103.9 H D 101.9 H (80.0-100.0) fL MCHC 30.6 L 30.4 L (31.0-37.0) g/dL RDW 19.7 H 19.8 H (11.5-15.5) % Plt Count 134 L 135 L (150-450) k/uL Lymphocytes # 0.6 L (1.0-4.8) k/uL Macrocytosis Marked A Potassium 3.3 L (3.5-5.1) mmol/L Chloride (98-107) mmol/L BUN 26 H (7-17) mg/dL Glucose 71 L (74-99) mg/dL Calcium (8.4-10.2) mg/dL Magnesium (1.6-2.3) mg/dL 08/28/21 Range/Units 09:01 RBC (3.80-5.40) m/uL Hgb (11.4-16.0) gm/dL Hct (34.0-46.0) % MCV (80.0-100.0) fL MCHC (31.0-37.0) g/dL RDW (11.5-15.5) % Plt Count (150-450) k/uL Lymphocytes # (1.0-4.8) k/uL Macrocytosis Potassium 3.4 L (3.5-5.1) mmol/L Chloride 109 H (98-107) mmol/L BUN 22 H (7-17) mg/dL Glucose 62 L (74-99) mg/dL Calcium 8.1 L (8.4-10.2) mg/dL Magnesium 1.4 L (1.6-2.3) mg/dL Microbiology - Last 24 Hours (Table) 08/25/21 12:00 Urine Culture - Final Urine,Clean Catch Enterococcus faecalis Assessment and Plan Assessment: 1. Large left anterior abdominal wall inferior hematoma 2. Right pelvic hematoma 3. Atrial fibrillation on Coumadin. Currently on hold 4. COPD 5. Chronic anemia with acute blood loss anemia 6. Hypertension 7. Hyperlipidemia 8. Rheumatoid arthritis Plan: Continue symptomatic and supportive care, hold anticoagulation indefinitely Await recommendations from urology Continue with conservative management, no plans at this time for any vascular surgical intervention, hemoglobin has remained stable after the 1 transfusion previously at 7.8. Continue to monitor. Await primary medicine team to discuss possible palliative/hospice care with patient as patient is voicing that she no longer wants intervention. We will sign off at this time, if further assistance is needed, please let us know.
[2021-08-28] MEDS ORDERED: Magnesium Replacement Protocol 1 EACH MISC MISCELLANE PRN (10:44)
[2021-08-28] MEDS ORDERED: Potassium Replacement Protocol 1 EACH MISC MISCELLANE PRN (10:46)
[2021-08-28] MEDS: DEXTROSE 5%-0.9% NACL 1,000 ML IV SCH (11:00)
[2021-08-28 12:11] LABS: Glucose,Whole Blood 78 mg/dL (75-99)
--- NOTE | 2021-08-28 12:32 | P.PN ---
Subjective Progress Note Date: 08/28/21 CHIEF COMPLAINT: Abdominal pain HISTORY OF PRESENT ILLNESS: Patient reports her pain is better controlled today. Her urine is more pinkish in color. Denies any nausea vomiting. Lying in bed. Patient continues to have abdominal pain. Awaiting for the urology recommendations. There was discussion about possible cystogram. Afebrile. WBC is 6.9 hemoglobin 7.8 platelets 135 sodium 141 potassium is 3.4 creatinine 0.69 magnesium 1.4 PHYSICAL EXAM: VITAL SIGNS: Reviewed. GENERAL: Well-developed in no acute distress. HEENT: No sclera icterus. Extraocular movements grossly intact. Moist buccal mucosa. Head is atraumatic, normocephalic. ABDOMEN: Soft. Diffuse tenderness. Bruising noted on the right lower abdomen NEUROLOGIC: Alert and oriented. Cranial nerves II through XII grossly intact. ASSESSMENT: 1. Abnormality in periduodenal region. No obvious perforation noted on repeat computed tomography scan with contrast per Dr. Mancuso 2. Left retroperitoneal hematoma with possible rebleeding 3. Suprapubic hematoma with concerns for fistula communication to the bladder 4. Anemia with acute blood loss anemia 5. History of atrial fibrillation. Coumadin on hold PLAN: -Continue medical conservative therapy. There has been discussion about possible comfort care measures and awaiting families decision -Magnesium and potassium are being replaced -Continue pain management -Continue supportive care -Hold Coumadin indefinitely -Continue to monitor hemoglobin -CODE STATUS no code Physician Orange Picking Supervisor note has been reviewed by physician. Signing provider agrees with the documented findings, assessment, and plan of care. I have personally seen and examined the patient, reviewed the HAM STRINGER /PAs history, exam and MDM and agree with the assessment and plan as written. Based on total visit time, I have performed more than 50% of the visit. As above: Patient says her pain is improved today. Cystogram was not performed yet apparently. Labs noted. Tolerating diet. No fevers. Await further evaluation by urology. Objective - Vital Signs Vital signs: Vital Signs Temp 97.9 F 08/28/21 08:00 Pulse 88 08/28/21 11:21 Resp 18 08/28/21 08:00 BP 121/60 08/28/21 08:00 Pulse Ox 95 08/28/21 08:00 FiO2 Intake & Output 08/27/21 08/28/21 08/28/21 18:59 06:59 18:59 Output Total 1150 700 Balance -1150 -700 Output: Urine 1150 700 Other: Voiding Method External Catheter External Catheter External Catheter - Labs CBC & Chem 7: 08/28/21 09:01 08/28/21 09:01 Labs: Abnormal Lab Results - Last 24 Hours (Table) 08/27/21 08/28/21 08/28/21 Range/Units 09:12 09:01 09:01 RBC 2.44 L 2.50 L (3.80-5.40) m/uL Hgb 7.8 L 7.8 L (11.4-16.0) gm/dL Hct 25.4 L 25.5 L (34.0-46.0) % MCV 103.9 H D 101.9 H (80.0-100.0) fL MCHC 30.6 L 30.4 L (31.0-37.0) g/dL RDW 19.7 H 19.8 H (11.5-15.5) % Plt Count 134 L 135 L (150-450) k/uL Lymphocytes # 0.6 L (1.0-4.8) k/uL Macrocytosis Marked A Potassium 3.4 L (3.5-5.1) mmol/L Chloride 109 H (98-107) mmol/L BUN 22 H (7-17) mg/dL Glucose 62 L (74-99) mg/dL POC Glucose (mg/dL) (75-99) mg/dL Calcium 8.1 L (8.4-10.2) mg/dL Magnesium 1.4 L (1.6-2.3) mg/dL 08/28/21 Range/Units 10:26 RBC (3.80-5.40) m/uL Hgb (11.4-16.0) gm/dL Hct (34.0-46.0) % MCV (80.0-100.0) fL MCHC (31.0-37.0) g/dL RDW (11.5-15.5) % Plt Count (150-450) k/uL Lymphocytes # (1.0-4.8) k/uL Macrocytosis Potassium (3.5-5.1) mmol/L Chloride (98-107) mmol/L BUN (7-17) mg/dL Glucose (74-99) mg/dL POC Glucose (mg/dL) 70 L (75-99) mg/dL Calcium (8.4-10.2) mg/dL Magnesium (1.6-2.3) mg/dL Microbiology - Last 24 Hours (Table) 08/25/21 12:00 Urine Culture - Final Urine,Clean Catch Enterococcus faecalis
--- NOTE | 2021-08-28 13:08 | P.PN ---
Subjective Progress Note Date: 08/28/21 Principal diagnosis: Recurrent and prog Bleeding CT on 08.26.21 reveal progressive hematoma and bleeding communicating with bladder. Warfarin has been held indefinitely by vascular and gen surg is following. She went for cystoscopy today without significant abnormality. Objective - Vital Signs Vital signs: Vital Signs Temp 97.9 F 08/28/21 08:00 Pulse 88 08/28/21 11:21 Resp 18 08/28/21 08:00 BP 121/60 08/28/21 08:00 Pulse Ox 95 08/28/21 08:00 FiO2 Intake & Output 08/27/21 08/28/21 08/28/21 18:59 06:59 18:59 Output Total 1150 700 Balance -1150 -700 Output: Urine 1150 700 Other: Voiding Method External Catheter External Catheter External Catheter - Exam Alert and oriented NAD Lungs DIinished Abdomen with Left abdominal hernia Mid epigastric and LUQ tenderness to palpation Ext: Edema - Labs CBC & Chem 7: 08/28/21 09:01 08/28/21 09:01 Labs: Abnormal Lab Results - Last 24 Hours (Table) 08/27/21 08/28/21 08/28/21 Range/Units 09:12 09:01 09:01 RBC 2.44 L 2.50 L (3.80-5.40) m/uL Hgb 7.8 L 7.8 L (11.4-16.0) gm/dL Hct 25.4 L 25.5 L (34.0-46.0) % MCV 103.9 H D 101.9 H (80.0-100.0) fL MCHC 30.6 L 30.4 L (31.0-37.0) g/dL RDW 19.7 H 19.8 H (11.5-15.5) % Plt Count 134 L 135 L (150-450) k/uL Lymphocytes # 0.6 L (1.0-4.8) k/uL Macrocytosis Marked A Potassium 3.4 L (3.5-5.1) mmol/L Chloride 109 H (98-107) mmol/L BUN 22 H (7-17) mg/dL Glucose 62 L (74-99) mg/dL POC Glucose (mg/dL) (75-99) mg/dL Calcium 8.1 L (8.4-10.2) mg/dL Magnesium 1.4 L (1.6-2.3) mg/dL 08/28/21 Range/Units 10:26 RBC (3.80-5.40) m/uL Hgb (11.4-16.0) gm/dL Hct (34.0-46.0) % MCV (80.0-100.0) fL MCHC (31.0-37.0) g/dL RDW (11.5-15.5) % Plt Count (150-450) k/uL Lymphocytes # (1.0-4.8) k/uL Macrocytosis Potassium (3.5-5.1) mmol/L Chloride (98-107) mmol/L BUN (7-17) mg/dL Glucose (74-99) mg/dL POC Glucose (mg/dL) 70 L (75-99) mg/dL Calcium (8.4-10.2) mg/dL Magnesium (1.6-2.3) mg/dL Microbiology - Last 24 Hours (Table) 08/25/21 12:00 Urine Culture - Final Urine,Clean Catch Enterococcus faecalis Assessment and Plan Plan: Acute hemorrhage Current Visit: Yes Status: Acute Priority: High Code(s): R58 - HEMORRHAGE, NOT ELSEWHERE CLASSIFIED SNOMED Code(s): 945621777 (2) COVID-19 Current Visit: Yes Status: Acute Priority: High Code(s): U07.1 - COVID-19 SNOMED Code(s): 184072607 (3) Multiple myeloma Current Visit: No Status: Chronic Priority: Medium Code(s): C90.00 - MULTIPLE MYELOMA NOT HAVING ACHIEVED REMISSION SNOMED Code(s): 900320803 Plan: AC therapy discontinued indefinetly per vascular Gen surg following CLose serial CBC monitoring Urology eval Iron studies for parental iron Coags rechecked Recheck Myeloma panel, inflammatory sapnas Dr. Davis: I have completed the full history and physical and developed the above impression and plan, agree with dictation, dictated as a scribe.
[2021-08-28] MEDS: POTASSIUM CHLORIDE 10 MEQ in WATER FOR INJECTION 1 100ML.BAG IVPB SCH ×4 (15:09→20:36)
[2021-08-28] MEDS: MAGNESIUM SULFATE-D5W PMX 1 GM in DEXTROSE/WATER 1 100ML.BAG IVPB SCH ×3 (15:10→18:32)
[2021-08-28 16:34] LABS: Reticulocyte % 8.4 % (0.5-2.0)
[2021-08-28 17:32] LABS: INR 1.1 (<1.2); Partial Thromboplastin Time 26.5 sec (22.0-30.0); Prothrombin Time 11.8 sec (9.0-12.0)
[2021-08-28] MEDS: HYDROmorphone 0.5 MG/0.5 ML SYRINGE IVP PRN (17:44)
[2021-08-28] MEDS: CHOLECALCIFEROL 125 MCG (5000 IU) TABLET PO SCH (17:45)
[2021-08-28] MEDS: CALCIUM CARB-VIT D 500 MG-5 MCG TAB PO SCH (17:45)
--- NOTE | 2021-08-28 18:14 | FL ---
Cystogram HISTORY: Bladder perforation, hematoma 3 minutes 56 seconds fluoroscopy time. 12 images were obtained Correlation CT scan same day The Senior Cost Analyst image shows contrast within the rectosigmoid colon. Patient was filled in a retrograde caballero er through the indwelling Bagley with 300 cc of Cystografin. Sequential images show bladder filling. There is no definitive bladder leak. Crescentic focus of cont rast to the right of the bladder may be related to extrinsic compression, incomplete bowel distention . Postprocedure CT scan was performed for confirmation. IMPRESSION: No definitive bladder leak identified. Case discussed with Dr. Vale at the time of dict ation.
[2021-08-28] MEDS: ATORVASTATIN 20 MG TAB PO SCH (18:34)
--- NOTE | 2021-08-28 19:01 | P.PN ---
Progress Note - Text Progress Note Date: 08/28/21 The patient states that she is feeling better today. A Bagley catheter was placed, showing evidence of mild hematuria without clots. A cystogram was obtained this afternoon. 300 mL of contrast was instilled into the bladder. The right lateral bladder wall showed some deformity due to extrinsic compression of the known pelvic hematoma. There was no definite evidence of contrast extravasation, though it is somewhat difficult to say with certainty as there is retained contrast within the pelvis from the recent CT scans. I intend to leave the Bagley catheter in place and repeat the cystogram in 1 week.
--- NOTE | 2021-08-28 19:28 | CT ---
EXAMINATION TYPE: CT pelvis wo con DATE OF EXAM: 08/28/2021 COMPARISON: 08/26/2021 HISTORY: bladder leak CT DLP: 672 mGycm Automated exposure control for dose reduction was used. Images obtained with no contrast from the iliac crest to the subtrochanteric femurs. There is a large mixed density mass involving the left anterior abdominal wall and extending into the abdomen. This appears to be extraperitoneal and consistent with acute and chronic hemorrhage. Mass m easures 15 x 9 cm. There is also high attenuation along the left psoas muscle measuring 4 cm in thick ness consistent with acute on chronic hemorrhage. The superior extent of the Tamika density is not e valuated. There is high attenuation anterior to the urinary bladder that could be hemorrhage in the b ladder or extraperitoneal hemorrhage. This measures 10 cm. There is contrast in the urinary bladder w ith Bagley catheter noted. No free fluid in the pelvis. There are sigmoid diverticula. No evidence of free air. There is anterior abdominal wall ventral hernia containing fat. The bony pelvis is intact. The hip joints are intact. There is some mild arthritic change in the hip joints. Sacroiliac joints are intact. IMPRESSION: Large multi loculated extraperitoneal acute and chronic hemorrhage extending from the anterior urinar y bladder to the left psoas muscle and left anterior abdominal wall. The size is not significantly di fferent than exam 2 days ago. No sign of any new hemorrhage.
[2021-08-28 20:25] LABS: Glucose,Whole Blood 91 mg/dL (75-99)
[2021-08-28] MEDS: DULoxetine HCL 60 MG CAPSULE.DR PO SCH (20:37)
[2021-08-28] MEDS: MONTELUKAST 10 MG TAB PO SCH (20:37)
[2021-08-28] MEDS: LATANOPROST 0.005% OPHTH DROPS 2.5 ML BTL BOTH EYES SCH (21:44)
[2021-08-28 23:32] LABS: % Iron Saturation 16.15 (12.00-45.00)
[2021-08-29] MEDS: DEXTROSE 5%-0.9% NACL 1,000 ML IV SCH ×2 (00:58→17:48)
[2021-08-29] MEDS: AMPICILLIN-SULBACTAM 3 GM in SODIUM CHLORIDE 0.9% 100 ML IVPB SCH ×4 (03:46→20:26)
[2021-08-29] MEDS: HYDROmorphone 1 MG/ML 1 ML SYRINGE IVP PRN ×3 (03:59→12:00)
[2021-08-29 06:20] LABS: Glucose,Whole Blood 131 mg/dL (75-99)
[2021-08-29] MEDS: METOPROLOL TARTRATE 25 MG TAB PO SCH ×2 (08:49→17:44)
[2021-08-29] MEDS: DOCUSATE 100 MG CAP PO SCH (08:49)
[2021-08-29] MEDS: ALPRAZolam 0.25 MG TAB PO PRN (08:49)
[2021-08-29] MEDS: FUROSEMIDE 20 MG TAB PO SCH (08:49)
[2021-08-29] MEDS: PANTOPRAZOLE 40 MG/10 ML VIAL IVP SCH ×2 (08:49→20:26)
[2021-08-29] MEDS: GABAPENTIN 400 MG CAP PO SCH ×2 (08:49→20:27)
[2021-08-29] MEDS: ACYCLOVIR 200 MG CAP PO SCH ×2 (08:49→21:10)
[2021-08-29] MEDS: SYMBICORT 160-4.5 MCG INHALER INHALATION SCH ×2 (09:01→20:28)
[2021-08-29] MEDS: ALBUTEROL NEBULIZED 2.5 MG/3 ML INHALATION SCH ×4 (09:01→20:28)
[2021-08-29 09:05] LABS: Anisocytosis Slight; Basophils % (A) 0 %; Eosinophils # (A) 0.2 k/uL (0-0.7); Eosinophils % (A) 3 %; HGB 7.9 gm/dL (11.4-16.0); Hypochromasia Marked; Lymphocytes # (A) 0.5 k/uL (1.0-4.8); Lymphocytes % (A) 9 %; MCH 30.8 pg (25.0-35.0); MCHC 30.3 g/dL (31.0-37.0); MCV 101.5 fL (80.0-100.0); Macrocytosis Moderate; Mean Platelet Volume 8.8; Monocytes # (A) 0.2 k/uL (0-1.0); Monocytes % (A) 4 %; Neutrophils # (A) 4.9 k/uL (1.3-7.7); Neutrophils % (A) 83 %; Platelet Count 159 k/uL (150-450); Poikilocytosis Slight; RBC 2.56 m/uL (3.80-5.40); RDW 19.9 % (11.5-15.5); WBC 5.8 k/uL (3.8-10.6)
[2021-08-29 09:21] LABS: ALT 24 U/L (4-34); AST 29 U/L (14-36); African American GFR (CKD) >90 (>60 ml/min/1.73 sqM); Albumin 2.3 g/dL (3.5-5.0); Alkaline Phosphatase 124 U/L (38-126); Anion Gap 4 mmol/L; Blood Urea Nitrogen 16 mg/dL (7-17); Calcium 7.8 mg/dL (8.4-10.2); Carbon Dioxide 27 mmol/L (22-30); Chloride 107 mmol/L (98-107); Glucose 110 mg/dL (74-99); Magnesium 1.7 mg/dL (1.6-2.3); Non-African American GFR(CKD) 81 (>60 ml/min/1.73 sqM); Potassium 2.8 mmol/L (3.5-5.1); Sodium 138 mmol/L (137-145); Total Bilirubin 0.8 mg/dL (0.2-1.3); Total Protein 4.7 g/dL (6.3-8.2)
[2021-08-29 11:12] LABS: Erythrocyte Sedimentation Rate 79 mm/hr (0-20)
[2021-08-29] MEDS: POTASSIUM CHLORIDE ER 20 MEQ TAB.ER PO SCH ×3 (12:04→17:44)
[2021-08-29] MEDS: MAGNESIUM SULFATE-D5W PMX 1 GM in DEXTROSE/WATER 1 100ML.BAG IVPB SCH ×2 (12:04→13:51)
[2021-08-29 12:07] LABS: Immunoglobulin M 34.4 mg/dL (40.0-280.0)
--- NOTE | 2021-08-29 12:36 | P.PN ---
Progress Note - Text Progress Note Date: 08/29/21 The patient is afebrile with stable vital signs. Her hemoglobin level this morning is 7.9, stable for 48 hours. She denies abdominal pain, but does report left lower back discomfort. A Bagley catheter is in place, currently draining clear yellow urine. Although the etiology of her spontaneous bleed is unclear, she appears to be stable. I do not believe she has a bladder perforation but the Bagley catheter will remain in place as a precaution.
[2021-08-29] MEDS: HYDROcodone/APAP 5-325MG 1 EACH TAB PO PRN ×2 (13:51→20:26)
--- NOTE | 2021-08-29 16:39 | P.PN ---
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 she was recently discharged from hospital after a prolonged stay Patient is fully awake and oriented in looks calm, little anxious, she states she has some blood in her underwear his parents this morning, she does not know how much and where was coming from and she was sent to the hospital from her ECF Patient also complained of from increasing left abdominal wall swelling and tenderness, it looks bigger than last admission. She denies any other specific symptoms, no dizziness, no chest pain or shortness of breath. No abdominal pain, no nausea vomiting or diarrhea, no vaginal complaints, no urinary complaints. She has chronic leukocytosis, obesity is 16.1, hemoglobin 8.2, down to 7.5, hemoglobin dropped last admission was entered between 8-9. Platelet count is normal at 187; INR is 2.3; BUN is 27, creatinine 0.8; Magnesium 1.8. Urinalysis showing hematuria more than 182 and WBC more than 182. CT of the abdomen and pelvis with contrast showing heterogenous area of the first and second part of the duodenum 2.1 x 3.2 x 3.8 cm. Also there is increased pelvic and left abdominal wall hematoma 14.9 up to 16.5 and 11.8 up to 15.6 cm respectively. Also a possible urinary bladder hematoma. On admission she started on IV fluid, vitamin K 5 mg and pain medication. ER team also ordered blood Objective - Vital Signs Vital signs: Vital Signs Temp 98.1 F 08/28/21 03:45 Pulse 95 08/28/21 07:41 Resp 18 08/28/21 03:45 BP 121/67 08/28/21 03:45 Pulse Ox 95 08/28/21 03:45 FiO2 Intake & Output 08/27/21 08/28/21 08/28/21 18:59 06:59 18:59 Output Total 1150 700 Balance -1150 -700 Output: Urine 1150 700 Other: Voiding Method External Catheter External Catheter - Exam -GENERAL: The patient is alert and oriented x3, not in any acute distress. Well developed, well nourished. Generally weak. Obese HEENT: Pupils are round and equally reacting to light. EOMI. No scleral icterus. No conjunctival pallor. Normocephalic, atraumatic. No pharyngeal erythema. No thyromegaly. CARDIOVASCULAR: S1 and S2 present. No murmurs, rubs, or gallops. PULMONARY: Chest is clear to auscultation, no wheezing or crackles. -ABDOMEN: Soft, nontender, nondistended, normoactive bowel sounds. No palpable organomegaly. Large fluctuant Left abdominal wall swelling MUSCULOSKELETAL: No joint swelling or deformity. EXTREMITIES: No cyanosis, clubbing, or pedal edema. NEUROLOGICAL: Gross neurological examination did not reveal any focal deficits. SKIN: No rashes. No petechiae - Labs CBC & Chem 7: 08/29/21 08:20 08/29/21 08:20 Labs: Abnormal Lab Results - Last 24 Hours (Table) 08/27/21 08/27/21 08/28/21 Range/Units 09:12 09:12 09:01 RBC 2.44 L 2.50 L (3.80-5.40) m/uL Hgb 7.8 L 7.8 L (11.4-16.0) gm/dL Hct 25.4 L 25.5 L (34.0-46.0) % MCV 103.9 H D 101.9 H (80.0-100.0) fL MCHC 30.6 L 30.4 L (31.0-37.0) g/dL RDW 19.7 H 19.8 H (11.5-15.5) % Plt Count 134 L 135 L (150-450) k/uL Lymphocytes # 0.6 L (1.0-4.8) k/uL Macrocytosis Marked A Potassium 3.3 L (3.5-5.1) mmol/L Chloride (98-107) mmol/L BUN 26 H (7-17) mg/dL Glucose 71 L (74-99) mg/dL POC Glucose (mg/dL) (75-99) mg/dL Calcium (8.4-10.2) mg/dL Magnesium (1.6-2.3) mg/dL 08/28/21 08/28/21 Range/Units 09:01 10:26 RBC (3.80-5.40) m/uL Hgb (11.4-16.0) gm/dL Hct (34.0-46.0) % MCV (80.0-100.0) fL MCHC (31.0-37.0) g/dL RDW (11.5-15.5) % Plt Count (150-450) k/uL Lymphocytes # (1.0-4.8) k/uL Macrocytosis Potassium 3.4 L (3.5-5.1) mmol/L Chloride 109 H (98-107) mmol/L BUN 22 H (7-17) mg/dL Glucose 62 L (74-99) mg/dL POC Glucose (mg/dL) 70 L (75-99) mg/dL Calcium 8.1 L (8.4-10.2) mg/dL Magnesium 1.4 L (1.6-2.3) mg/dL Microbiology - Last 24 Hours (Table) 08/25/21 12:00 Urine Culture - Final Urine,Clean Catch Enterococcus faecalis Assessment and Plan Assessment: Acute urinary tract infection with enterococcus, group D Possible sepsis with leukocytosis and tachycardia Worsening acute abdominal wall and pelvic hematoma and possible urinary bladder hematoma Right pelvic hematoma indicating with urinary bladder Acute blood loss anemia, secondary to above. Heterogeneous area of the first and second part of the duodenum 2.1 x 3.2 x 3.8 cm Recent history of covid Pneumonia COPD, no acute exacerbation History of DVT on warfarin (on hold) History of atrial fibrillation on warfarin with rate controlled Multiple myeloma, she follows up with Dr. Beatty. Last treatment was one week prior to admission to last hospital Chronic leukocytosis Continue with monitoring hemoglobin Hold Lovenox and warfarin, Surgical team consult Starting is seen and continue with normal saline, follow-up urine culture. Also we will consult cardiology and hematology/oncology teams Labs and medication were reviewed.. Continue same treatment. Continue with symptomatic treatment. Resume home medication. Monitor lytes and vitals. DVT and GI prophylaxis. Further recommendations depends on the clinical course of the patient DVT prophylaxis: No anticoagulation in view of hematoma and bleeding GI Prophylaxis: Protonix PT/OT: From ECF prognosis remains guarded Patient has DO NOT RESUSCITATE order based upon her wishes
--- NOTE | 2021-08-29 17:00 | P.PN ---
Subjective Progress Note Date: 08/29/21 Principal diagnosis: Acute urinary tract infection with enterococcus, group D Possible sepsis with leukocytosis and tachycardia Worsening acute abdominal wall and pelvic hematoma and possible urinary bladder hematoma Right pelvic hematoma indicating with urinary bladder Acute blood loss anemia 85 years old female with past medical history of deep venous thrombosis, rheumatoid arthritis that she follow-up with lokie engineer, hyperlipidemia, hypertension, osteoarthritis, COPD. she was recently discharged from hospital after a prolonged stay Patient is fully awake and oriented in looks calm, little anxious, she states she has some blood in her underwear his parents this morning, she does not know how much and where was coming from and she was sent to the hospital from her ECF Patient also complained of from increasing left abdominal wall swelling and tenderness, it looks bigger than last admission. She denies any other specific symptoms, no dizziness, no chest pain or shortness of breath. No abdominal pain, no nausea vomiting or diarrhea, no vaginal complaints, no urinary complaints. She has chronic leukocytosis, obesity is 16.1, hemoglobin 8.2, down to 7.5, hemoglobin dropped last admission was entered between 8-9. Platelet count is normal at 187; INR is 2.3; BUN is 27, creatinine 0.8; Magnesium 1.8. Urinalysis showing hematuria more than 182 and WBC more than 182. CT of the abdomen and pelvis with contrast showing heterogenous area of the first and second part of the duodenum 2.1 x 3.2 x 3.8 cm. Also there is increased pelvic and left abdominal wall hematoma 14.9 up to 16.5 and 11.8 up to 15.6 cm respectively. Also a possible urinary bladder hematoma. On admission she started on IV fluid, vitamin K 5 mg and pain medication. ER team also ordered blood 08/29/2021 85-year-old female patient admitted with UTI/sepsis with abdominal wall and pelvic hematoma with possible extension to urinary bladder; concerns about urinary retention; urology evaluated patient and Bagley catheter was placed which did not show any evidence of clots with mild hematuria; right lacunar bladder wall didn't reveal some deformity likely related to extrinsic compression from pelvic hematoma; urology recommending to continue with Bagley catheter with plans to repeat cystogram in one week to make further recommendations, possibly no bladder perforation Objective - Vital Signs Vital signs: Vital Signs Temp 97.9 F 08/29/21 12:00 Pulse 82 08/29/21 16:47 Resp 20 08/29/21 14:00 BP 111/69 08/29/21 12:00 Pulse Ox 97 08/29/21 12:00 FiO2 Intake & Output 08/28/21 08/29/21 08/29/21 18:59 06:59 18:59 Output Total 500 Balance -500 Output: Urine 500 Other: Voiding Method External Catheter Indwelling Catheter Indwelling Catheter - Exam -GENERAL: The patient is alert and oriented x3, not in any acute distress. Well developed, well nourished. Generally weak. Obese HEENT: Pupils are round and equally reacting to light. EOMI. No scleral icterus. No conjunctival pallor. Normocephalic, atraumatic. No pharyngeal erythema. No thyromegaly. CARDIOVASCULAR: S1 and S2 present. No murmurs, rubs, or gallops. PULMONARY: Chest is clear to auscultation, no wheezing or crackles. -ABDOMEN: Soft, nontender, nondistended, normoactive bowel sounds. No palpable organomegaly. Large fluctuant Left abdominal wall swelling MUSCULOSKELETAL: No joint swelling or deformity. EXTREMITIES: No cyanosis, clubbing, or pedal edema. NEUROLOGICAL: Gross neurological examination did not reveal any focal deficits. SKIN: No rashes. No petechiae - Labs CBC & Chem 7: 08/29/21 08:20 08/29/21 08:20 Labs: Abnormal Lab Results - Last 24 Hours (Table) 08/28/21 08/28/21 08/29/21 Range/Units 15:57 15:57 06:08 RBC (3.80-5.40) m/uL Hgb (11.4-16.0) gm/dL Hct (34.0-46.0) % MCV (80.0-100.0) fL MCHC (31.0-37.0) g/dL RDW (11.5-15.5) % Lymphocytes # (1.0-4.8) k/uL ESR (0-20) mm/hr Retic Count 8.4 H (0.5-2.0) % Potassium (3.5-5.1) mmol/L Glucose (74-99) mg/dL POC Glucose (mg/dL) 131 H (75-99) mg/dL Calcium (8.4-10.2) mg/dL Iron 41 L (50-170) ug/dL Transferrin 180.0 L (204.0-354.0) mg/dL Ferritin 732.0 H (10.0-291.0) ng/mL Total Protein (6.3-8.2) g/dL Albumin (3.5-5.0) g/dL Vitamin B12 1029.0 H (200.0-944.0) pg/mL IgM (40.0-280.0) mg/dL 08/29/21 08/29/21 08/29/21 Range/Units 08:20 08:20 08:20 RBC 2.56 L (3.80-5.40) m/uL Hgb 7.9 L (11.4-16.0) gm/dL Hct 26.0 L (34.0-46.0) % MCV 101.5 H (80.0-100.0) fL MCHC 30.3 L (31.0-37.0) g/dL RDW 19.9 H (11.5-15.5) % Lymphocytes # 0.5 L (1.0-4.8) k/uL ESR 79 H (0-20) mm/hr Retic Count (0.5-2.0) % Potassium 2.8 L (3.5-5.1) mmol/L Glucose 110 H (74-99) mg/dL POC Glucose (mg/dL) (75-99) mg/dL Calcium 7.8 L (8.4-10.2) mg/dL Iron (50-170) ug/dL Transferrin (204.0-354.0) mg/dL Ferritin (10.0-291.0) ng/mL Total Protein 4.7 L (6.3-8.2) g/dL Albumin 2.3 L (3.5-5.0) g/dL Vitamin B12 (200.0-944.0) pg/mL IgM 34.4 L (40.0-280.0) mg/dL Assessment and Plan Assessment: Acute urinary tract infection with enterococcus, group D Possible sepsis with leukocytosis and tachycardia Worsening acute abdominal wall and pelvic hematoma and possible urinary bladder hematoma Right pelvic hematoma indicating with urinary bladder Acute blood loss anemia, secondary to above. Heterogeneous area of the first and second part of the duodenum 2.1 x 3.2 x 3.8 cm Recent history of covid Pneumonia COPD, no acute exacerbation History of DVT on warfarin (on hold) History of atrial fibrillation on warfarin with rate controlled Multiple myeloma, she follows up with Dr. Beatty. Last treatment was one week prior to admission to last hospital Chronic leukocytosis Continue with monitoring hemoglobin Hold Lovenox and warfarin, Surgical team consult Starting is seen and continue with normal saline, follow-up urine culture. Also we will consult cardiology and hematology/oncology teams Labs and medication were reviewed.. Continue same treatment. Continue with symptomatic treatment. Resume home medication. Monitor lytes and vitals. DVT and GI prophylaxis. Further recommendations depends on the clinical course of the patient DVT prophylaxis: No anticoagulation in view of hematoma and bleeding GI Prophylaxis: Protonix PT/OT: From ECF prognosis remains guarded Patient has DO NOT RESUSCITATE order based upon her wishes
[2021-08-29] MEDS: CALCIUM CARB-VIT D 500 MG-5 MCG TAB PO SCH (17:43)
[2021-08-29] MEDS: CHOLECALCIFEROL 125 MCG (5000 IU) TABLET PO SCH (17:43)
[2021-08-29] MEDS: ATORVASTATIN 20 MG TAB PO SCH (17:44)
--- NOTE | 2021-08-29 18:35 | P.PN ---
Subjective Progress Note Date: 08/29/21 CHIEF COMPLAINT: Pelvic hematomas HISTORY OF PRESENT ILLNESS: The patient is a 86-year-old female admitted with pelvic and abdominal wall hematomas from chronic anticoagulant use. She is resting comfortably. No new issues overnight. Bagley catheter present. ROS: No reports of nausea and vomiting. No bowel movements. No fevers or chills. No new chest pain. No productive sputum PHYSICAL EXAM: VITAL SIGNS: Reviewed CONSTITUTIONAL: Well developed and in no acute distress. EYES: Conjuctivae without sclera icterus. Extraocular movements grossly intact. HEAD, EARS, NOSE, THROAT: Moist buccal mucosa. Head is atraumatic, normocephalic. Hears conversational speech. No nasal drainage. RESPIRATORY: Non-labored respirations and equal bilateral excursions. CARDIOVASCULAR: Palpable 2+ radial pulses. ABDOMEN: No peritonitis. MUSCULOSKELETAL: No gross deformity of the lower extremities noted. No clubbing. No cyanosis. SKIN: Good skin turgor. Well perfused. NEUROLOGIC: Cranial nerves II through XII grossly intact. No focal or lateralizing signs. PSYCH: Lethargic CLINICAL LABS: Reviewed. Hemoglobin stable 7.9. ASSESSMENT: 1. Abdominal wall and pelvic hematomas PLAN: 1. No acute surgical intervention. 2. Monitor hemoglobin Objective - Vital Signs Vital signs: Vital Signs Temp 97.7 F 08/29/21 16:00 Pulse 82 08/29/21 16:47 Resp 18 08/29/21 16:00 BP 109/67 08/29/21 16:00 Pulse Ox 99 08/29/21 16:00 FiO2 Intake & Output 08/28/21 08/29/21 08/29/21 18:59 06:59 18:59 Output Total 500 1350 Balance -500 -1350 Output: Urine 500 1350 Other: Voiding Method External Catheter Indwelling Catheter Indwelling Catheter - Labs CBC & Chem 7: 08/29/21 08:20 08/29/21 08:20 Labs: Abnormal Lab Results - Last 24 Hours (Table) 08/28/21 08/29/21 08/29/21 Range/Units 15:57 06:08 08:20 RBC (3.80-5.40) m/uL Hgb (11.4-16.0) gm/dL Hct (34.0-46.0) % MCV (80.0-100.0) fL MCHC (31.0-37.0) g/dL RDW (11.5-15.5) % Lymphocytes # (1.0-4.8) k/uL ESR (0-20) mm/hr Potassium (3.5-5.1) mmol/L Glucose (74-99) mg/dL POC Glucose (mg/dL) 131 H (75-99) mg/dL Calcium (8.4-10.2) mg/dL Iron 41 L (50-170) ug/dL Transferrin 180.0 L (204.0-354.0) mg/dL Ferritin 732.0 H (10.0-291.0) ng/mL Total Protein (6.3-8.2) g/dL Albumin (3.5-5.0) g/dL Vitamin B12 1029.0 H (200.0-944.0) pg/mL IgM 34.4 L (40.0-280.0) mg/dL 08/29/21 08/29/21 Range/Units 08:20 08:20 RBC 2.56 L (3.80-5.40) m/uL Hgb 7.9 L (11.4-16.0) gm/dL Hct 26.0 L (34.0-46.0) % MCV 101.5 H (80.0-100.0) fL MCHC 30.3 L (31.0-37.0) g/dL RDW 19.9 H (11.5-15.5) % Lymphocytes # 0.5 L (1.0-4.8) k/uL ESR 79 H (0-20) mm/hr Potassium 2.8 L (3.5-5.1) mmol/L Glucose 110 H (74-99) mg/dL POC Glucose (mg/dL) (75-99) mg/dL Calcium 7.8 L (8.4-10.2) mg/dL Iron (50-170) ug/dL Transferrin (204.0-354.0) mg/dL Ferritin (10.0-291.0) ng/mL Total Protein 4.7 L (6.3-8.2) g/dL Albumin 2.3 L (3.5-5.0) g/dL Vitamin B12 (200.0-944.0) pg/mL IgM (40.0-280.0) mg/dL
[2021-08-29] MEDS: DULoxetine HCL 60 MG CAPSULE.DR PO SCH (20:26)
[2021-08-29] MEDS: MONTELUKAST 10 MG TAB PO SCH (20:27)
[2021-08-29] MEDS: LATANOPROST 0.005% OPHTH DROPS 2.5 ML BTL BOTH EYES SCH (21:10)
[2021-08-29 23:13] LABS: Rheumatoid Factor, Qnt <10 IU/mL (0-15)
[2021-08-30] MEDS: DEXTROSE 5%-0.9% NACL 1,000 ML IV SCH ×4 (01:07→20:02)
[2021-08-30] MEDS: HYDROmorphone 1 MG/ML 1 ML SYRINGE IVP PRN ×2 (01:30→07:53)
[2021-08-30] MEDS: AMPICILLIN-SULBACTAM 3 GM in SODIUM CHLORIDE 0.9% 100 ML IVPB SCH ×4 (03:44→20:00)
[2021-08-30] MEDS: SYMBICORT 160-4.5 MCG INHALER INHALATION SCH ×2 (08:50→20:55)
[2021-08-30] MEDS: ALBUTEROL NEBULIZED 2.5 MG/3 ML INHALATION SCH ×4 (08:51→20:54)
[2021-08-30 08:59] LABS: Anisocytosis Slight; Basophils % (A) 0 %; Eosinophils # (A) 0.2 k/uL (0-0.7); Eosinophils % (A) 4 %; HCT 26.2 % (34.0-46.0); Hypochromasia Marked; Lymphocytes # (A) 0.5 k/uL (1.0-4.8); Lymphocytes % (A) 12 %; MCH 31.1 pg (25.0-35.0); MCHC 30.3 g/dL (31.0-37.0); MCV 102.5 fL (80.0-100.0); Macrocytosis Moderate; Mean Platelet Volume 8.7; Monocytes # (A) 0.2 k/uL (0-1.0); Monocytes % (A) 4 %; Neutrophils # (A) 3.6 k/uL (1.3-7.7); Neutrophils % (A) 78 %; Platelet Count 164 k/uL (150-450); Poikilocytosis Slight; RBC 2.56 m/uL (3.80-5.40); RDW 19.1 % (11.5-15.5); WBC 4.6 k/uL (3.8-10.6)
[2021-08-30 09:21] LABS: African American GFR (CKD) >90 (>60 ml/min/1.73 sqM); Anion Gap 1 mmol/L; Blood Urea Nitrogen 11 mg/dL (7-17); Calcium 7.7 mg/dL (8.4-10.2); Carbon Dioxide 30 mmol/L (22-30); Chloride 106 mmol/L (98-107); Glucose 111 mg/dL (74-99); Magnesium 1.6 mg/dL (1.6-2.3); Non-African American GFR(CKD) 83 (>60 ml/min/1.73 sqM); Potassium 3.2 mmol/L (3.5-5.1); Sodium 137 mmol/L (137-145)
[2021-08-30] MEDS: PANTOPRAZOLE 40 MG/10 ML VIAL IVP SCH ×2 (09:59→20:01)
[2021-08-30] MEDS: DOCUSATE 100 MG CAP PO SCH (10:00)
[2021-08-30] MEDS: METOPROLOL TARTRATE 25 MG TAB PO SCH ×2 (10:00→17:36)
[2021-08-30] MEDS: FUROSEMIDE 20 MG TAB PO SCH (10:00)
[2021-08-30] MEDS: GABAPENTIN 400 MG CAP PO SCH ×2 (10:00→20:01)
[2021-08-30] MEDS: ACYCLOVIR 200 MG CAP PO SCH ×2 (10:00→20:00)
--- NOTE | 2021-08-30 10:31 | P.PN ---
Progress Note - Text Progress Note Date: 08/30/21 The patient reports pain with movement. The Bagley catheter is draining urine which alternates between clear and mildly bloody. She passed one clot through the catheter yesterday. Her hemoglobin level is stable. I intend to repeat the cystogram late this week, and the catheter will remain in place until that time. The presence of a pelvic/abdominal wall hematoma does not explain the hematuria, so she will require cystoscopy at some point to rule out intravesical pathology.
[2021-08-30] MEDS: HYDROcodone/APAP 5-325MG 1 EACH TAB PO PRN ×2 (12:46→20:10)
--- NOTE | 2021-08-30 16:59 | P.PN ---
Subjective Progress Note Date: 08/30/21 CHIEF COMPLAINT: Pelvic hematomas HISTORY OF PRESENT ILLNESS: The patient is a 86-year-old female admitted with pelvic and abdominal wall hematomas from chronic anticoagulant use. She has a Bagley catheter with hematuria. No reports of abdominal pain. "I do not want surgery." She is tolerating diet. ROS: No reports of nausea and vomiting. No bowel movements. No fevers or chills. No new chest pain. No productive sputum PHYSICAL EXAM: VITAL SIGNS: Reviewed CONSTITUTIONAL: Well developed and in no acute distress. EYES: Conjuctivae without sclera icterus. Extraocular movements grossly intact. HEAD, EARS, NOSE, THROAT: Moist buccal mucosa. Head is atraumatic, normocephalic. Hears conversational speech. No nasal drainage. RESPIRATORY: Non-labored respirations and equal bilateral excursions. CARDIOVASCULAR: Palpable 2+ radial pulses. ABDOMEN: Nontender. MUSCULOSKELETAL: No gross deformity of the lower extremities noted. No clubbing. No cyanosis. SKIN: Good skin turgor. Well perfused. NEUROLOGIC: Cranial nerves II through XII grossly intact. No focal or lateralizing signs. PSYCH: Appropriate affect. Alert to person place time. : Bagley catheter with hematuria CLINICAL LABS: Reviewed. Hemoglobin stable 7.9 up to 8.0 ASSESSMENT: 1. Abdominal wall and pelvic hematomas PLAN: 1. Hemoglobin is stable 2. No acute surgical intervention Objective - Vital Signs Vital signs: Vital Signs Temp 97.7 F 08/30/21 08:00 Pulse 85 08/30/21 14:00 Resp 18 08/30/21 14:00 BP 107/70 08/30/21 12:00 Pulse Ox 97 08/30/21 12:00 FiO2 Intake & Output 08/29/21 08/30/21 08/30/21 18:59 06:59 18:59 Output Total 1350 1400 Balance -1350 -1400 Output: Urine 1350 1400 Other: Voiding Method Indwelling Catheter Indwelling Catheter Indwelling Catheter - Labs CBC & Chem 7: 08/30/21 08:08 08/30/21 08:08 Labs: Abnormal Lab Results - Last 24 Hours (Table) 08/30/21 08/30/21 Range/Units 08:08 08:08 RBC 2.56 L (3.80-5.40) m/uL Hgb 8.0 L (11.4-16.0) gm/dL Hct 26.2 L (34.0-46.0) % MCV 102.5 H (80.0-100.0) fL MCHC 30.3 L (31.0-37.0) g/dL RDW 19.1 H (11.5-15.5) % Lymphocytes # 0.5 L (1.0-4.8) k/uL Potassium 3.2 L (3.5-5.1) mmol/L Glucose 111 H (74-99) mg/dL Calcium 7.7 L (8.4-10.2) mg/dL
[2021-08-30] MEDS: CHOLECALCIFEROL 125 MCG (5000 IU) TABLET PO SCH (17:36)
[2021-08-30] MEDS: CALCIUM CARB-VIT D 500 MG-5 MCG TAB PO SCH (17:36)
[2021-08-30] MEDS: ATORVASTATIN 20 MG TAB PO SCH (17:36)
--- NOTE | 2021-08-30 17:58 | P.PN ---
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 she was recently discharged from hospital after a prolonged stay Patient is fully awake and oriented in looks calm, little anxious, she states she has some blood in her underwear his parents this morning, she does not know how much and where was coming from and she was sent to the hospital from her ECF Patient also complained of from increasing left abdominal wall swelling and tenderness, it looks bigger than last admission. She denies any other specific symptoms, no dizziness, no chest pain or shortness of breath. No abdominal pain, no nausea vomiting or diarrhea, no vaginal complaints, no urinary complaints. She has chronic leukocytosis, obesity is 16.1, hemoglobin 8.2, down to 7.5, hemoglobin dropped last admission was entered between 8-9. Platelet count is normal at 187; INR is 2.3; BUN is 27, creatinine 0.8; Magnesium 1.8. Urinalysis showing hematuria more than 182 and WBC more than 182. CT of the abdomen and pelvis with contrast showing heterogenous area of the first and second part of the duodenum 2.1 x 3.2 x 3.8 cm. Also there is increased pelvic and left abdominal wall hematoma 14.9 up to 16.5 and 11.8 up to 15.6 cm respectively. Also a possible urinary bladder hematoma. On admission she started on IV fluid, vitamin K 5 mg and pain medication. ER team also ordered blood 08/29/2021 85-year-old female patient admitted with UTI/sepsis with abdominal wall and pelvic hematoma with possible extension to urinary bladder; concerns about urinary retention; urology evaluated patient and Bagley catheter was placed which did not show any evidence of clots with mild hematuria; right lacunar bladder wall didn't reveal some deformity likely related to extrinsic compression from pelvic hematoma; urology recommending to continue with Bagley catheter with plans to repeat cystogram in one week to make further recommendations, possibly no bladder perforation 08/30/2021 Patient continues to report pain with minimal activity; patient continues to have the catheter in place which is occasionally mildly bloody; urology on board and recommending to continue with Bagley catheter with plan to repeat cystogram later in the week for further evaluation of hematuria which cannot be explained with presence of pelvic/abdominal wall hematoma We will continue to monitor hemoglobin closely which has remained stable Objective - Vital Signs Vital signs: Vital Signs Temp 98.4 F 08/29/21 20:20 Pulse 90 08/30/21 03:45 Resp 17 08/30/21 03:45 BP 100/62 08/30/21 03:45 Pulse Ox 96 08/30/21 03:45 FiO2 Intake & Output 08/29/21 08/30/21 08/30/21 18:59 06:59 18:59 Output Total 1350 1400 Balance -1350 -1400 Output: Urine 1350 1400 Other: Voiding Method Indwelling Catheter Indwelling Catheter - Exam -GENERAL: The patient is alert and oriented x3, not in any acute distress. Well developed, well nourished. Generally weak. Obese HEENT: Pupils are round and equally reacting to light. EOMI. No scleral icterus. No conjunctival pallor. Normocephalic, atraumatic. No pharyngeal erythema. No thyromegaly. CARDIOVASCULAR: S1 and S2 present. No murmurs, rubs, or gallops. PULMONARY: Chest is clear to auscultation, no wheezing or crackles. -ABDOMEN: Soft, nontender, nondistended, normoactive bowel sounds. No palpable organomegaly. Large fluctuant Left abdominal wall swelling MUSCULOSKELETAL: No joint swelling or deformity. EXTREMITIES: No cyanosis, clubbing, or pedal edema. NEUROLOGICAL: Gross neurological examination did not reveal any focal deficits. SKIN: No rashes. No petechiae - Labs CBC & Chem 7: 08/30/21 08:08 08/30/21 08:08 Labs: Abnormal Lab Results - Last 24 Hours (Table) 08/30/21 08/30/21 Range/Units 08:08 08:08 RBC 2.56 L (3.80-5.40) m/uL Hgb 8.0 L (11.4-16.0) gm/dL Hct 26.2 L (34.0-46.0) % MCV 102.5 H (80.0-100.0) fL MCHC 30.3 L (31.0-37.0) g/dL RDW 19.1 H (11.5-15.5) % Lymphocytes # 0.5 L (1.0-4.8) k/uL Potassium 3.2 L (3.5-5.1) mmol/L Glucose 111 H (74-99) mg/dL Calcium 7.7 L (8.4-10.2) mg/dL Assessment and Plan Assessment: Acute urinary tract infection with enterococcus, group D Possible sepsis with leukocytosis and tachycardia Worsening acute abdominal wall and pelvic hematoma and possible urinary bladder hematoma Right pelvic hematoma indicating with urinary bladder Acute blood loss anemia, secondary to above. Heterogeneous area of the first and second part of the duodenum 2.1 x 3.2 x 3.8 cm Recent history of covid Pneumonia COPD, no acute exacerbation History of DVT on warfarin (on hold) History of atrial fibrillation on warfarin with rate controlled Multiple myeloma, she follows up with Dr. Beatty. Last treatment was one week prior to admission to last hospital Chronic leukocytosis Continue with monitoring hemoglobin Hold Lovenox and warfarin, Surgical team consult Starting is seen and continue with normal saline, follow-up urine culture. Also we will consult cardiology and hematology/oncology teams Labs and medication were reviewed.. Continue same treatment. Continue with symptomatic treatment. Resume home medication. Monitor lytes and vitals. DVT and GI prophylaxis. Further recommendations depends on the clinical course of the patient DVT prophylaxis: No anticoagulation in view of hematoma and bleeding GI Prophylaxis: Protonix PT/OT: From ECF prognosis remains guarded Patient has DO NOT RESUSCITATE order based upon her wishes
[2021-08-30 18:35] LABS: Protein, Total 4.6 g/dL (6.2-8.2)
[2021-08-30] MEDS: POTASSIUM CHLORIDE ER 20 MEQ TAB.ER PO SCH ×2 (20:01→20:58)
[2021-08-30] MEDS: DULoxetine HCL 60 MG CAPSULE.DR PO SCH (20:01)
[2021-08-30] MEDS: MONTELUKAST 10 MG TAB PO SCH (20:01)
[2021-08-30] MEDS: LATANOPROST 0.005% OPHTH DROPS 2.5 ML BTL BOTH EYES SCH (20:58)
[2021-08-30] MEDS: MAGNESIUM SULFATE-D5W PMX 1 GM in DEXTROSE/WATER 1 100ML.BAG IVPB SCH ×2 (20:58→22:12)
[2021-08-31] MEDS: HYDROcodone/APAP 5-325MG 1 EACH TAB PO PRN ×2 (01:55→17:14)
[2021-08-31] MEDS: AMPICILLIN-SULBACTAM 3 GM in SODIUM CHLORIDE 0.9% 100 ML IVPB SCH ×4 (02:57→21:01)
[2021-08-31] MEDS: HYDROmorphone 0.5 MG/0.5 ML SYRINGE IVP PRN (06:16)
[2021-08-31 08:25] LABS: African American GFR (CKD) >90 (>60 ml/min/1.73 sqM); Anion Gap 4 mmol/L; Blood Urea Nitrogen 10 mg/dL (7-17); Calcium 7.8 mg/dL (8.4-10.2); Carbon Dioxide 27 mmol/L (22-30); Chloride 106 mmol/L (98-107); Glucose 114 mg/dL (74-99); Magnesium 1.7 mg/dL (1.6-2.3); Non-African American GFR(CKD) 87 (>60 ml/min/1.73 sqM); Potassium 3.2 mmol/L (3.5-5.1); Sodium 137 mmol/L (137-145)
[2021-08-31] MEDS: ALBUTEROL NEBULIZED 2.5 MG/3 ML INHALATION SCH ×4 (08:43→20:00)
[2021-08-31] MEDS: SYMBICORT 160-4.5 MCG INHALER INHALATION SCH ×2 (08:45→20:00)
[2021-08-31] MEDS ORDERED: POTASSIUM CHLORIDE ER 20 MEQ TAB.ER PO STA (09:38)
[2021-08-31] MEDS: DOCUSATE 100 MG CAP PO SCH (09:48)
[2021-08-31] MEDS: CALCIUM CARB-VIT D 500 MG-5 MCG TAB PO SCH (09:53)
[2021-08-31] MEDS: GABAPENTIN 400 MG CAP PO SCH ×2 (09:53→21:01)
[2021-08-31] MEDS: METOPROLOL TARTRATE 25 MG TAB PO SCH ×2 (09:53→17:14)
[2021-08-31] MEDS: FUROSEMIDE 20 MG TAB PO SCH (09:53)
[2021-08-31] MEDS: CHOLECALCIFEROL 125 MCG (5000 IU) TABLET PO SCH (09:54)
[2021-08-31] MEDS: PANTOPRAZOLE 40 MG/10 ML VIAL IVP SCH ×2 (09:54→21:00)
[2021-08-31] MEDS: ACYCLOVIR 200 MG CAP PO SCH ×2 (09:54→21:04)
[2021-08-31] MEDS: DEXTROSE 5%-0.9% NACL 1,000 ML IV SCH (09:54)
[2021-08-31] MEDS: ATORVASTATIN 20 MG TAB PO SCH (09:54)
[2021-08-31 09:56] LABS: Anisocytosis Slight; HCT 27.4 % (34.0-46.0); HGB 8.2 gm/dL (11.4-16.0); Hypochromasia Marked; MCH 30.8 pg (25.0-35.0); MCHC 29.9 g/dL (31.0-37.0); MCV 102.8 fL (80.0-100.0); Macrocytosis Moderate; Mean Platelet Volume 9.4; Platelet Count 176 k/uL (150-450); Poikilocytosis Slight; RBC 2.66 m/uL (3.80-5.40); RDW 18.7 % (11.5-15.5); WBC 4.8 k/uL (3.8-10.6)
[2021-08-31] MEDS: HYDROmorphone 1 MG/ML 1 ML SYRINGE IVP PRN (10:03)
--- NOTE | 2021-08-31 10:40 | P.PN ---
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 she was recently discharged from hospital after a prolonged stay Patient is fully awake and oriented in looks calm, little anxious, she states she has some blood in her underwear his parents this morning, she does not know how much and where was coming from and she was sent to the hospital from her ECF Patient also complained of from increasing left abdominal wall swelling and tenderness, it looks bigger than last admission. She denies any other specific symptoms, no dizziness, no chest pain or shortness of breath. No abdominal pain, no nausea vomiting or diarrhea, no vaginal complaints, no urinary complaints. Patient vitals stable, systolic blood pressure is 120 to 130s. She is a slightly tachycardic more than 90s. She has chronic leukocytosis, obesity is 16.1, hemoglobin 8.2, down to 7.5, hemoglobin dropped last admission was entered between 8-9. Platelet count is normal at 187. INR is 2.3 BMP is unremarkable, BUN is 27, creatinine 0.8. Magnesium 1.8. Urinalysis showing hematuria more than 182 and WBC more than 182. CT of the abdomen and pelvis with contrast showing heterogenous area of the first and second part of the duodenum 2.1 x 3.2 x 3.8 cm. Also there is increased pelvic and left abdominal wall hematoma 14.9 up to 16.5 and 11.8 up to 15.6 cm respectively. Also a possible urinary bladder hematoma. On admission she started on IV fluid, vitamin K 5 mg and pain medication. ER team also ordered blood 08/26/2021 Patient is fully awake and oriented, lying in bed in mild to moderate distress due to pain, she is receiving Dilaudid for pain control. Patient also made nothing by mouth for her intra-abdominal hematoma and duodenal lesion with suspected perforation, CT of the abdomen and pelvis without contrast repeated and showed progressive left retroperitoneal hematoma concerning for active bleeding but hemoglobin is stable today at 9.1 compared to 7.5 yesterday. Also she has right pelvic hematoma, indicating with urinary bladder. Urine culture is actually going to euro cocci, group D and patient with tachycardia could be related to infection and bleeding and leukocytosis concerning for sepsis. Patient continued on normal saline at 100 mL per hour, Unasyn is added. Proton discussed started elevated 0.4. WBCs 15.4. INR is back to normal at 1.1. Several consultants on the case Patient was to be DO NOT RESUSCITATE today and she was considering comfort care. As per staff granddaughter is at bedside and aware of patient plan for more conservative uncomfortable measures. 08/27/2021 Patient remains awake and still have uncontrolled pain, heart Dilaudid increased to 1 mg every 2 hours. Blood pressure is borderline and therefore a bolus of 500 mL is a provided. She remains on Unasyn and normal saline 100 mL per hour. Coumadine is a stopped and recommended to discontinue it even on discharge, this is the second episode of severe bleeding within short period of time. I discussed with the patient her wishes for comfort measures, she wants to wait now and discussed with Dr. Cantu. I discussed the case with Dr. Cantu myself, I would recommend to continue with medical management for 2-3 days to see patient response to treatment. Patient has continuous oozing of blood per urethral orifice Urology team has been evaluated for possible pelvic hematoma connected to the urinary bladder. However patient is a very poor surgical candidate. Prognosis remains guarded 08/31/2021, this is the first day I started taking care of the patient , again Today patient is lying in bed in mild distress due to her abdominal pain which she rated at 7/10 in severity but it looks less severe compared to last week. No more evidence of active bleeding and actually her hemoglobin has been stable at 8.2. Patient improved 110/65 this morning and therefore I will lower her D5 normal saline done to 50 mL per hour. Also patient On Unasyn. Tasneem Lovenox were discontinued and patient informed and agrees. Risks and benefits are explained. Still hesitant about how aggressive she wants to proceed with the treatment, she: Me she does not want more test but she agrees to blood work. However she states she is not ready for hospice and she was discussed with her family first. Bid side nurse page is informed Objective - Vital Signs Vital signs: Vital Signs Temp 98.5 F 08/31/21 09:40 Pulse 91 08/31/21 09:40 Resp 16 08/31/21 09:40 BP 110/65 08/31/21 09:40 Pulse Ox 98 08/31/21 09:40 FiO2 Intake & Output 08/30/21 08/31/21 08/31/21 18:59 06:59 18:59 Intake Total 480 118 Output Total 2150 Balance -1670 118 Intake: Oral 480 118 Output: Urine 2150 Other: Voiding Method Indwelling Catheter Indwelling Catheter Indwelling Catheter # Bowel Movements 1 - Exam -GENERAL: The patient is alert and oriented x3, not in any acute distress. Well developed, well nourished. Generally weak. Obese HEENT: Pupils are round and equally reacting to light. EOMI. No scleral icterus. No conjunctival pallor. Normocephalic, atraumatic. No pharyngeal erythema. No thyromegaly. CARDIOVASCULAR: S1 and S2 present. No murmurs, rubs, or gallops. PULMONARY: Chest is clear to auscultation, no wheezing or crackles. -ABDOMEN: Soft, nontender, nondistended, normoactive bowel sounds. No palpable organomegaly. Large fluctuant Left abdominal wall swelling MUSCULOSKELETAL: No joint swelling or deformity. EXTREMITIES: No cyanosis, clubbing, or pedal edema. NEUROLOGICAL: Gross neurological examination did not reveal any focal deficits. SKIN: No rashes. No petechiae - Labs CBC & Chem 7: 08/31/21 07:28 08/31/21 07:28 Labs: Abnormal Lab Results - Last 24 Hours (Table) 08/29/21 08/31/21 08/31/21 Range/Units 08:20 07:28 07:28 RBC 2.66 L (3.80-5.40) m/uL Hgb 8.2 L (11.4-16.0) gm/dL Hct 27.4 L (34.0-46.0) % MCV 102.8 H (80.0-100.0) fL MCHC 29.9 L (31.0-37.0) g/dL RDW 18.7 H (11.5-15.5) % Potassium 3.2 L (3.5-5.1) mmol/L Glucose 114 H (74-99) mg/dL Calcium 7.8 L (8.4-10.2) mg/dL Total Protein (PEP) 4.6 L (6.2-8.2) g/dL Assessment and Plan Assessment: Acute urinary tract infection with enterococcus, group D Possible sepsis with leukocytosis and tachycardia Worsening acute abdominal wall and pelvic hematoma and possible urinary bladder hematoma Right pelvic hematoma indicating with urinary bladder Acute blood loss anemia, secondary to above. Heterogeneous area of the first and second part of the duodenum 2.1 x 3.2 x 3.8 cm Recent history of covid Pneumonia COPD, no acute exacerbation History of DVT on warfarin (on hold) History of atrial fibrillation on warfarin with rate controlled Multiple myeloma, she follows up with Dr. Beatty. Last treatment was one week prior to admission to last hospital Chronic leukocytosis Plan: This is a pleasant 86 his old female who presents with multiple hematomas, duodenal lesion Continue with monitoring hemoglobin Discontinue Lovenox and warfarin Surgical team consult Lower normal saline to 50 mL per hour Continue with Unasyn Also we will consult cardiology and hematology/oncology teams Labs and medication were reviewed.. Continue same treatment. Continue with symptomatic treatment. Resume home medication. Monitor lytes and vitals. DVT and GI prophylaxis. Further recommendations depends on the clinical course of the patient DVT prophylaxis: No anticoagulation in view of hematoma and bleeding GI Prophylaxis: Protonix PT/OT: From ECF prognosis remains guarded Patient has DO NOT RESUSCITATE order based upon her wishes
[2021-08-31] MEDS: MONTELUKAST 10 MG TAB PO SCH (21:00)
[2021-08-31] MEDS: DULoxetine HCL 60 MG CAPSULE.DR PO SCH (21:01)
[2021-08-31] MEDS: LATANOPROST 0.005% OPHTH DROPS 2.5 ML BTL BOTH EYES SCH (21:03)
[2021-08-31] MEDS: ACETAMINOPHEN TAB 325 MG TAB PO PRN (21:12)
[2021-09-01] MEDS: AMPICILLIN-SULBACTAM 3 GM in SODIUM CHLORIDE 0.9% 100 ML IVPB SCH ×4 (03:50→20:14)
[2021-09-01] MEDS: HYDROcodone/APAP 5-325MG 1 EACH TAB PO PRN ×2 (05:25→17:15)
--- NOTE | 2021-09-01 05:52 | P.PN ---
Subjective Progress Note Date: 08/31/21 CHIEF COMPLAINT: Pelvic hematoma HISTORY OF PRESENT ILLNESS: The patient is a 86-year-old female admitted with pelvic and abdominal wall hematomas from chronic anticoagulant use. She denies abdominal pain. She is now on regular diet. She reports low appetite. "I want to get up and dangle my feet." ROS: No reports of nausea and vomiting. No fevers or chills. No new chest pain. PHYSICAL EXAM: VITAL SIGNS: Reviewed CONSTITUTIONAL: Well developed and in no acute distress. EYES: Conjuctivae without sclera icterus. Extraocular movements grossly intact. HEAD, EARS, NOSE, THROAT: Moist buccal mucosa. Head is atraumatic, normocephalic. Hears conversational speech. No nasal drainage. RESPIRATORY: Non-labored respirations and equal bilateral excursions. CARDIOVASCULAR: Palpable 2+ radial pulses. ABDOMEN: Nontender. Obese MUSCULOSKELETAL: No clubbing. No cyanosis. SKIN: Good skin turgor. Well perfused. NEUROLOGIC: Cranial nerves II through XII grossly intact. No focal or laterali zing signs. PSYCH: Appropriate affect. Alert to person place time. : Bagley catheter with hematuria CLINICAL LABS: Reviewed. Hemoglobin stable 7.9 up to 8.0, now 8.2 ASSESSMENT: 1. Abdominal wall and pelvic hematomas PLAN: 1. Diet as tolerated 2. Physical therapy assessment advised. Objective - Vital Signs Vital signs: Vital Signs Temp 98.1 F 09/01/21 03:58 Pulse 79 09/01/21 03:58 Resp 17 09/01/21 03:58 BP 120/70 09/01/21 03:58 Pulse Ox 98 09/01/21 03:58 FiO2 Intake & Output 08/31/21 08/31/21 09/01/21 06:59 18:59 06:59 Intake Total 480 1976 Output Total 2150 550 700 Balance -1670 1426 -700 Intake: IV 900 Ampicillin-Sulbactam 3 gm 300 In Sodium Chloride 0.9% 100 ml @ 200 mls/hr IVPB Q6H [facility] Rx#:[id number] Dextrose 5%-0.9% NaCl 1, 600 000 ml @ 50 mls/hr IV . Q20H [facility] Rx#:[id number] Oral 480 1076 Output: Urine 2150 550 700 Uretheral (Bagley) 550 Other: Voiding Method Indwelling Catheter Indwelling Catheter Indwelling Catheter # Bowel Movements 1 - Labs CBC & Chem 7: 08/31/21 07:28 08/31/21 07:28 Labs: Abnormal Lab Results - Last 24 Hours (Table) 08/31/21 08/31/21 Range/Units 07:28 07:28 RBC 2.66 L (3.80-5.40) m/uL Hgb 8.2 L (11.4-16.0) gm/dL Hct 27.4 L (34.0-46.0) % MCV 102.8 H (80.0-100.0) fL MCHC 29.9 L (31.0-37.0) g/dL RDW 18.7 H (11.5-15.5) % Potassium 3.2 L (3.5-5.1) mmol/L Glucose 114 H (74-99) mg/dL Calcium 7.8 L (8.4-10.2) mg/dL
[2021-09-01] MEDS: ALBUTEROL NEBULIZED 2.5 MG/3 ML INHALATION SCH ×4 (07:38→19:32)
[2021-09-01] MEDS: SYMBICORT 160-4.5 MCG INHALER INHALATION SCH ×2 (07:38→19:32)
[2021-09-01 07:49] LABS: Anisocytosis Slight; Basophils % (A) 0 %; Eosinophils # (A) 0.1 k/uL (0-0.7); Eosinophils % (A) 3 %; HCT 26.4 % (34.0-46.0); HGB 8.2 gm/dL (11.4-16.0); Hypochromasia Marked; Lymphocytes # (A) 0.7 k/uL (1.0-4.8); Lymphocytes % (A) 17 %; MCH 31.6 pg (25.0-35.0); MCHC 31.1 g/dL (31.0-37.0); MCV 101.6 fL (80.0-100.0); Macrocytosis Moderate; Mean Platelet Volume 8.9; Monocytes # (A) 0.2 k/uL (0-1.0); Monocytes % (A) 6 %; Neutrophils # (A) 2.8 k/uL (1.3-7.7); Neutrophils % (A) 71 %; Platelet Count 206 k/uL (150-450); Poikilocytosis Slight; RDW 18.9 % (11.5-15.5)
[2021-09-01 08:23] LABS: African American GFR (CKD) >90 (>60 ml/min/1.73 sqM); Anion Gap 2 mmol/L; Blood Urea Nitrogen 11 mg/dL (7-17); Calcium 7.6 mg/dL (8.4-10.2); Carbon Dioxide 26 mmol/L (22-30); Chloride 108 mmol/L (98-107); Glucose 97 mg/dL (74-99); Magnesium 1.4 mg/dL (1.6-2.3); Non-African American GFR(CKD) 83 (>60 ml/min/1.73 sqM); Potassium 3.3 mmol/L (3.5-5.1); Sodium 136 mmol/L (137-145)
[2021-09-01] MEDS: DEXTROSE 5%-0.9% NACL 1,000 ML IV SCH ×2 (10:12→10:24)
[2021-09-01] MEDS: GABAPENTIN 400 MG CAP PO SCH ×2 (10:31→20:13)
[2021-09-01] MEDS: DOCUSATE 100 MG CAP PO SCH (10:31)
[2021-09-01] MEDS: ACYCLOVIR 200 MG CAP PO SCH ×2 (10:31→20:14)
[2021-09-01] MEDS: PANTOPRAZOLE 40 MG/10 ML VIAL IVP SCH ×2 (10:31→20:13)
[2021-09-01] MEDS: METOPROLOL TARTRATE 25 MG TAB PO SCH ×2 (10:32→17:17)
[2021-09-01] MEDS: FUROSEMIDE 20 MG TAB PO SCH (10:32)
--- NOTE | 2021-09-01 11:34 | P.PN ---
Subjective Progress Note Date: 09/01/21 CHIEF COMPLAINT: Abdominal pain HISTORY OF PRESENT ILLNESS: patient reports decrease in her abdominal pain since admission. Reports her pain is mostly in the lower abdomen. She is having flatus. Denies any nausea or vomiting. She still having hematuria. Bagley catheter in place. She is followed by urology. The planning to repeat cystogram. Also patient may require cystoscopy. Afebrile. WBC is 4.0 hemoglobin 8.2 plates 206 sodium 136 potassium 3.3 creatinine 0.62 magnesium 1.4 PHYSICAL EXAM: VITAL SIGNS: Reviewed. GENERAL: Well-developed in no acute distress. HEENT: No sclera icterus. Extraocular movements grossly intact. Moist buccal mucosa. Head is atraumatic, normocephalic. ABDOMEN: Soft. Diffuse tenderness. Bruising noted on the right lower abdomen NEUROLOGIC: Alert and oriented. Cranial nerves II through XII grossly intact. ASSESSMENT: 1. Abdominal pain 2. Left retroperitoneal hematoma with possible rebleeding 3. Suprapubic hematoma 4. Anemia with acute blood loss anemia PLAN: -Continue medical conservative treatment -No Surgical intervention planned -Continue to replace magnesium and potassium -Continue pain management -Continue supportive care -Hold Coumadin indefinitely -Continue to monitor hemoglobin -CODE STATUS no code Physician Forming Roll Operator Heavy Duty note has been reviewed by physician. Signing provider agrees with the documented findings, assessment, and plan of care. I have personally seen and examined the patient, reviewed the COMMISSARY AGENT /PAs history, exam and MDM and agree with the assessment and plan as written. Based on total visit time, I have performed more than 50% of the visit. As above: Patient doing well. Pain is improving. Continue urologic workup. Will follow. Objective - Vital Signs Vital signs: Vital Signs Temp 98.1 F 09/01/21 03:58 Pulse 79 09/01/21 03:58 Resp 17 09/01/21 03:58 BP 120/70 09/01/21 03:58 Pulse Ox 98 09/01/21 03:58 FiO2 Intake & Output 08/31/21 09/01/21 09/01/21 18:59 06:59 18:59 Intake Total 1976 180 Output Total 550 700 Balance 1426 -700 180 Intake: IV 900 Ampicillin-Sulbactam 3 gm 300 In Sodium Chloride 0.9% 100 ml @ 200 mls/hr IVPB Q6H [facility] Rx#:[id number] Dextrose 5%-0.9% NaCl 1, 600 000 ml @ 50 mls/hr IV . Q20H [facility] Rx#:[id number] Oral 1076 180 Output: Urine 550 700 Uretheral (Bagley) 550 Other: Voiding Method Indwelling Catheter Indwelling Catheter - Labs CBC & Chem 7: 09/01/21 06:27 09/01/21 06:27 Labs: Abnormal Lab Results - Last 24 Hours (Table) 09/01/21 09/01/21 Range/Units 06:27 06:27 RBC 2.60 L (3.80-5.40) m/uL Hgb 8.2 L (11.4-16.0) gm/dL Hct 26.4 L (34.0-46.0) % MCV 101.6 H (80.0-100.0) fL RDW 18.9 H (11.5-15.5) % Lymphocytes # 0.7 L (1.0-4.8) k/uL Sodium 136 L (137-145) mmol/L Potassium 3.3 L (3.5-5.1) mmol/L Chloride 108 H (98-107) mmol/L Calcium 7.6 L (8.4-10.2) mg/dL Magnesium 1.4 L (1.6-2.3) mg/dL
[2021-09-01] MEDS: MAGNESIUM SULFATE-D5W PMX 1 GM in DEXTROSE/WATER 1 100ML.BAG IVPB SCH ×3 (11:54→18:20)
[2021-09-01 13:00] VITALS: BMI 34.4
[2021-09-01 13:30] LABS: Albumin 2.24 g/dL (3.80-4.90); Gamma Globulin 0.73 g/dL (0.70-1.50)
[2021-09-01] MEDS ORDERED: POTASSIUM BICARBONATE/CIT AC 20 MEQ TABLET.EFF PO ONE (14:17)
[2021-09-01] MEDS: CALCIUM CARB-VIT D 500 MG-5 MCG TAB PO SCH (17:17)
[2021-09-01] MEDS: CHOLECALCIFEROL 125 MCG (5000 IU) TABLET PO SCH (17:17)
[2021-09-01] MEDS: ATORVASTATIN 20 MG TAB PO SCH (17:17)
[2021-09-01] MEDS: ACETAMINOPHEN TAB 325 MG TAB PO PRN (20:13)
[2021-09-01] MEDS: DULoxetine HCL 60 MG CAPSULE.DR PO SCH (20:13)
[2021-09-01] MEDS: MONTELUKAST 10 MG TAB PO SCH (20:14)
[2021-09-01] MEDS: LATANOPROST 0.005% OPHTH DROPS 2.5 ML BTL BOTH EYES SCH (20:15)
[2021-09-01] MEDS ORDERED: MAGNESIUM SULFATE-D5W PMX 1 GM in DEXTROSE/WATER 1 100ML.BAG IVPB ONE (22:51)
[2021-09-01] MEDS ORDERED: POTASSIUM CHLORIDE ER 20 MEQ TAB.ER PO STA (22:51)
--- NOTE | 2021-09-01 22:57 | P.PN ---
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 she was recently discharged from hospital after a prolonged stay Patient is fully awake and oriented in looks calm, little anxious, she states she has some blood in her underwear his parents this morning, she does not know how much and where was coming from and she was sent to the hospital from her ECF Patient also complained of from increasing left abdominal wall swelling and tenderness, it looks bigger than last admission. She denies any other specific symptoms, no dizziness, no chest pain or shortness of breath. No abdominal pain, no nausea vomiting or diarrhea, no vaginal complaints, no urinary complaints. Patient vitals stable, systolic blood pressure is 120 to 130s. She is a slightly tachycardic more than 90s. She has chronic leukocytosis, obesity is 16.1, hemoglobin 8.2, down to 7.5, hemoglobin dropped last admission was entered between 8-9. Platelet count is normal at 187. INR is 2.3 BMP is unremarkable, BUN is 27, creatinine 0.8. Magnesium 1.8. Urinalysis showing hematuria more than 182 and WBC more than 182. CT of the abdomen and pelvis with contrast showing heterogenous area of the first and second part of the duodenum 2.1 x 3.2 x 3.8 cm. Also there is increased pelvic and left abdominal wall hematoma 14.9 up to 16.5 and 11.8 up to 15.6 cm respectively. Also a possible urinary bladder hematoma. On admission she started on IV fluid, vitamin K 5 mg and pain medication. ER team also ordered blood 08/26/2021 Patient is fully awake and oriented, lying in bed in mild to moderate distress due to pain, she is receiving Dilaudid for pain control. Patient also made nothing by mouth for her intra-abdominal hematoma and duodenal lesion with suspected perforation, CT of the abdomen and pelvis without contrast repeated and showed progressive left retroperitoneal hematoma concerning for active bleeding but hemoglobin is stable today at 9.1 compared to 7.5 yesterday. Also she has right pelvic hematoma, indicating with urinary bladder. Urine culture is actually going to euro cocci, group D and patient with tachycardia could be related to infection and bleeding and leukocytosis concerning for sepsis. Patient continued on normal saline at 100 mL per hour, Unasyn is added. Proton discussed started elevated 0.4. WBCs 15.4. INR is back to normal at 1.1. Several consultants on the case Patient was to be DO NOT RESUSCITATE today and she was considering comfort care. As per staff granddaughter is at bedside and aware of patient plan for more conservative uncomfortable measures. 08/27/2021 Patient remains awake and still have uncontrolled pain, heart Dilaudid increased to 1 mg every 2 hours. Blood pressure is borderline and therefore a bolus of 500 mL is a provided. She remains on Unasyn and normal saline 100 mL per hour. Coumadine is a stopped and recommended to discontinue it even on discharge, this is the second episode of severe bleeding within short period of time. I discussed with the patient her wishes for comfort measures, she wants to wait now and discussed with Dr. Cantu. I discussed the case with Dr. Cantu myself, I would recommend to continue with medical management for 2-3 days to see patient response to treatment. Patient has continuous oozing of blood per urethral orifice Urology team has been evaluated for possible pelvic hematoma connected to the urinary bladder. However patient is a very poor surgical candidate. Prognosis remains guarded 08/31/2021, this is the first day I started taking care of the patient , again Today patient is lying in bed in mild distress due to her abdominal pain which she rated at 7/10 in severity but it looks less severe compared to last week. No more evidence of active bleeding and actually her hemoglobin has been stable at 8.2. Patient improved 110/65 this morning and therefore I will lower her D5 normal saline done to 50 mL per hour. Also patient On Unasyn. Tasneem Lovenox were discontinued and patient informed and agrees. Risks and benefits are explained. Still hesitant about how aggressive she wants to proceed with the treatment, she: Me she does not want more test but she agrees to blood work. However she states she is not ready for hospice and she was discussed with her family first. Bid side nurse page is informed 09/01/2021 Patient today is awake and alert, looks less distract, although she is little bit anxious. She was able to sit in the chair today for the first time and she feels satisfied with that. Her abdominal pain yesterday about 7/10, she has mild leg edema and basal crepitation, IV fluid was discontinued, her vitals are stable and creatinine normal at patient appetite is improving. Bagley catheter in a Place Hemoglobin stable at 8.2. Low potassium and magnesium were replaced Continue to hold anticoagulation Discussed with patient, she does not want hospice but she agreeable for palliative consult as an outpatient. Discussed with the bedside nurse Objective - Vital Signs Vital signs: Vital Signs Temp 97.9 F 09/01/21 20:00 Pulse 88 09/01/21 20:00 Resp 16 09/01/21 20:00 BP 103/63 09/01/21 20:00 Pulse Ox 94 L 09/01/21 20:00 FiO2 Intake & Output 09/01/21 09/01/21 09/02/21 06:59 18:59 06:59 Intake Total 360 Output Total 700 475 Balance -700 -115 Weight 97 kg Intake: Oral 360 Output: Urine 700 475 Other: Voiding Method Indwelling Catheter Indwelling Catheter Indwelling Catheter # Bowel Movements 1 - Exam -GENERAL: The patient is alert and oriented x3, not in any acute distress. Well developed, well nourished. Generally weak. Obese HEENT: Pupils are round and equally reacting to light. EOMI. No scleral icterus. No conjunctival pallor. Normocephalic, atraumatic. No pharyngeal erythema. No thyromegaly. CARDIOVASCULAR: S1 and S2 present. No murmurs, rubs, or gallops. PULMONARY: Chest is clear to auscultation, no wheezing or crackles. -ABDOMEN: Soft, nontender, nondistended, normoactive bowel sounds. No palpable organomegaly. Large fluctuant Left abdominal wall swelling MUSCULOSKELETAL: No joint swelling or deformity. EXTREMITIES: No cyanosis, clubbing, or pedal edema. NEUROLOGICAL: Gross neurological examination did not reveal any focal deficits. SKIN: No rashes. No petechiae - Labs CBC & Chem 7: 09/01/21 06:27 09/01/21 06:27 Labs: Abnormal Lab Results - Last 24 Hours (Table) 08/29/21 09/01/21 09/01/21 Range/Units 08:20 06:27 06:27 RBC 2.60 L (3.80-5.40) m/uL Hgb 8.2 L (11.4-16.0) gm/dL Hct 26.4 L (34.0-46.0) % MCV 101.6 H (80.0-100.0) fL RDW 18.9 H (11.5-15.5) % Lymphocytes # 0.7 L (1.0-4.8) k/uL Sodium 136 L (137-145) mmol/L Potassium 3.3 L (3.5-5.1) mmol/L Chloride 108 H (98-107) mmol/L Calcium 7.6 L (8.4-10.2) mg/dL Magnesium 1.4 L (1.6-2.3) mg/dL Albumin (PEP) 2.24 L (3.80-4.90) g/dL [id number] 0.47 H (0.10-0.40) g/dL Beta Globulins 0.55 L (0.60-1.30) g/dL Assessment and Plan Assessment: Acute urinary tract infection with enterococcus, group D Possible sepsis with leukocytosis and tachycardia Worsening acute abdominal wall and pelvic hematoma and possible urinary bladder hematoma Right pelvic hematoma indicating with urinary bladder Acute blood loss anemia, secondary to above. Heterogeneous area of the first and second part of the duodenum 2.1 x 3.2 x 3.8 cm Recent history of covid Pneumonia COPD, no acute exacerbation History of DVT on warfarin (on hold) History of atrial fibrillation on warfarin with rate controlled Multiple myeloma, she follows up with Dr. Beatty. Last treatment was one week prior to admission to last hospital Chronic leukocytosis Plan: This is a pleasant 86 his old female who presents with multiple hematomas, duodenal lesion Continue with monitoring hemoglobin Discontinue Lovenox and warfarin Surgical team consult Lower normal saline to 50 mL per hour Continue with Unasyn Also we will consult cardiology and hematology/oncology teams Labs and medication were reviewed.. Continue same treatment. Continue with symptomatic treatment. Resume home medication. Monitor lytes and vitals. DVT and GI prophylaxis. Further recommendations depends on the clinical course of the patient DVT prophylaxis: No anticoagulation in view of hematoma and bleeding GI Prophylaxis: Protonix PT/OT: From ECF prognosis remains guarded Patient has DO NOT RESUSCITATE order based upon her wishes
[2021-09-02 00:14] LABS: Magnesium 1.9 mg/dL (1.6-2.3); Potassium 3.2 mmol/L (3.5-5.1)
[2021-09-02] MEDS: HYDROcodone/APAP 5-325MG 1 EACH TAB PO PRN ×3 (02:16→20:29)
[2021-09-02] MEDS: AMPICILLIN-SULBACTAM 3 GM in SODIUM CHLORIDE 0.9% 100 ML IVPB SCH ×4 (03:58→23:18)
[2021-09-02] MEDS: ACETAMINOPHEN TAB 325 MG TAB PO PRN (04:38)
[2021-09-02] MEDS: ALBUTEROL NEBULIZED 2.5 MG/3 ML INHALATION SCH ×4 (08:57→21:12)
[2021-09-02] MEDS: SYMBICORT 160-4.5 MCG INHALER INHALATION SCH ×2 (08:57→16:29)
[2021-09-02] MEDS ORDERED: LIDOCAINE 5% PATCH TOPICAL ONE (09:48)
[2021-09-02] MEDS ORDERED: FUROSEMIDE 10 MG/ML 4 ML VIAL IV STA ×2 (09:50→18:23)
[2021-09-02] MEDS: METOPROLOL TARTRATE 25 MG TAB PO SCH ×2 (10:00→17:05)
[2021-09-02] MEDS: PANTOPRAZOLE 40 MG/10 ML VIAL IVP SCH ×2 (10:04→19:28)
[2021-09-02] MEDS: GABAPENTIN 400 MG CAP PO SCH ×2 (10:06→19:27)
[2021-09-02] MEDS: DOCUSATE 100 MG CAP PO SCH (10:06)
[2021-09-02] MEDS: ACYCLOVIR 200 MG CAP PO SCH ×2 (10:07→19:27)
[2021-09-02 10:26] LABS: Anisocytosis Slight; Basophils % (A) 1 %; Eosinophils # (A) 0.1 k/uL (0-0.7); Eosinophils % (A) 3 %; HGB 8.6 gm/dL (11.4-16.0); Hypochromasia Marked; Lymphocytes # (A) 1.1 k/uL (1.0-4.8); Lymphocytes % (A) 23 %; MCH 31.6 pg (25.0-35.0); MCHC 30.5 g/dL (31.0-37.0); MCV 103.5 fL (80.0-100.0); Macrocytosis Marked; Mean Platelet Volume 8.9; Monocytes # (A) 0.2 k/uL (0-1.0); Monocytes % (A) 4 %; Neutrophils % (A) 66 %; Platelet Count 244 k/uL (150-450); Poikilocytosis Slight; RBC 2.71 m/uL (3.80-5.40); RDW 18.9 % (11.5-15.5); WBC 4.5 k/uL (3.8-10.6)
[2021-09-02 10:38] LABS: African American GFR (CKD) >90 (>60 ml/min/1.73 sqM); Anion Gap 7 mmol/L; Blood Urea Nitrogen 12 mg/dL (7-17); Calcium 8.2 mg/dL (8.4-10.2); Carbon Dioxide 24 mmol/L (22-30); Chloride 104 mmol/L (98-107); Glucose 110 mg/dL (74-99); Magnesium 1.9 mg/dL (1.6-2.3); Non-African American GFR(CKD) 84 (>60 ml/min/1.73 sqM); Potassium 3.3 mmol/L (3.5-5.1); Sodium 135 mmol/L (137-145)
--- NOTE | 2021-09-02 11:58 | P.PN ---
Subjective Progress Note Date: 09/02/21 CHIEF COMPLAINT: Abdominal pain HISTORY OF PRESENT ILLNESS: Patient sitting at bedside chair. She reports her abdominal pain controlled. Still having hematuria noted in the Bagley catheter bag. Patient does complain of lower extremity edema. Medicine service has ordered a dose of IV Lasix. She denies any shortness of breath. Afebrile WBC 4.5 hemoglobin 8.6 points to 44 sodium 135 potassium 3.3 magnesium 1.9 PHYSICAL EXAM: VITAL SIGNS: Reviewed. GENERAL: Well-developed in no acute distress. HEENT: No sclera icterus. Extraocular movements grossly intact. Moist buccal mucosa. Head is atraumatic, normocephalic. ABDOMEN: Soft. Diffuse tenderness. NEUROLOGIC: Alert and oriented. Cranial nerves II through XII grossly intact. ASSESSMENT: 1. Abdominal pain 2. Left retroperitoneal hematoma with possible rebleeding 3. Suprapubic hematoma 4. Anemia with acute blood loss anemia PLAN: -Continue urology workup -Continue medical conservative treatment -No Surgical intervention planned -Continue to replace magnesium and potassium -Continue pain management -Continue supportive care -Hold Coumadin indefinitely -Continue to monitor hemoglobin -CODE STATUS no code Physician Event Promoter note has been reviewed by physician. Signing provider agrees with the documented findings, assessment, and plan of care. I have personally seen and examined the patient, reviewed the CHILDCARE AIDE /PAs history, exam and MDM and agree with the assessment and plan as written. Based on total visit time, I have performed more than 50% of the visit. As above: Patient says her pain is improved. Bagley catheter with a small amount of blood. Continue to hold anticoagulation. Continue diet as tolerated. We'll sign off. Please call if general surgery input needed. Objective - Vital Signs Vital signs: Vital Signs Temp 98 F 09/02/21 04:00 Pulse 81 09/02/21 09:07 Resp 18 09/02/21 04:00 BP 98/51 09/02/21 04:00 Pulse Ox 95 09/02/21 04:00 FiO2 Intake & Output 09/01/21 09/02/21 09/02/21 18:59 06:59 18:59 Intake Total 360 240 Output Total 475 450 Balance -115 -450 240 Weight 97 kg Intake: Oral 360 240 Output: Urine 475 450 Other: Voiding Method Indwelling Catheter Indwelling Catheter # Bowel Movements 1 - Labs CBC & Chem 7: 09/02/21 09:52 09/02/21 09:52 Labs: Abnormal Lab Results - Last 24 Hours (Table) 08/29/21 09/01/21 09/02/21 Range/Units 08:20 23:34 09:52 RBC (3.80-5.40) m/uL Hgb (11.4-16.0) gm/dL Hct (34.0-46.0) % MCV (80.0-100.0) fL MCHC (31.0-37.0) g/dL RDW (11.5-15.5) % Macrocytosis Sodium 135 L (137-145) mmol/L Potassium 3.2 L 3.3 L (3.5-5.1) mmol/L Glucose 110 H (74-99) mg/dL Calcium 8.2 L (8.4-10.2) mg/dL Albumin (PEP) 2.24 L (3.80-4.90) g/dL Wwbao-3-[id number] 0.47 H (0.10-0.40) g/dL Beta Globulins 0.55 L (0.60-1.30) g/dL 09/02/21 Range/Units 09:52 RBC 2.71 L (3.80-5.40) m/uL Hgb 8.6 L (11.4-16.0) gm/dL Hct 28.0 L (34.0-46.0) % MCV 103.5 H (80.0-100.0) fL MCHC 30.5 L (31.0-37.0) g/dL RDW 18.9 H (11.5-15.5) % Macrocytosis Marked A Sodium (137-145) mmol/L Potassium (3.5-5.1) mmol/L Glucose (74-99) mg/dL Calcium (8.4-10.2) mg/dL Albumin (PEP) (3.80-4.90) g/dL Knjor-7-Tfagzdhmr (0.10-0.40) g/dL Beta Globulins (0.60-1.30) g/dL
[2021-09-02] MEDS: FUROSEMIDE 20 MG TAB PO SCH (12:34)
[2021-09-02 13:25] LABS: Free Kappa Lt Chain Qnt, Serum 4.86 mg/dL (0.33-1.94)
[2021-09-02] MEDS: CHOLECALCIFEROL 125 MCG (5000 IU) TABLET PO SCH (17:16)
[2021-09-02] MEDS: ATORVASTATIN 20 MG TAB PO SCH (17:16)
[2021-09-02] MEDS: CALCIUM CARB-VIT D 500 MG-5 MCG TAB PO SCH (17:16)
--- NOTE | 2021-09-02 18:31 | P.PN ---
Subjective This is a pleasant 85 years old female with past medical history of deep venous thrombosis, rheumatoid arthritis that she follow-up with jail officer, hyperlipidemia, hypertension, osteoarthritis, COPD. she was recently discharged from hospital after a prolonged stay Patient is fully awake and oriented in looks calm, little anxious, she states she has some blood in her underwear his parents this morning, she does not know how much and where was coming from and she was sent to the hospital from her ECF Patient also complained of from increasing left abdominal wall swelling and tenderness, it looks bigger than last admission. She denies any other specific symptoms, no dizziness, no chest pain or shortness of breath. No abdominal pain, no nausea vomiting or diarrhea, no vaginal complaints, no urinary complaints. Patient vitals stable, systolic blood pressure is 120 to 130s. She is a slightly tachycardic more than 90s. She has chronic leukocytosis, obesity is 16.1, hemoglobin 8.2, down to 7.5, hemoglobin dropped last admission was entered between 8-9. Platelet count is normal at 187. INR is 2.3 BMP is unremarkable, BUN is 27, creatinine 0.8. Magnesium 1.8. Urinalysis showing hematuria more than 182 and WBC more than 182. CT of the abdomen and pelvis with contrast showing heterogenous area of the first and second part of the duodenum 2.1 x 3.2 x 3.8 cm. Also there is increased pelvic and left abdominal wall hematoma 14.9 up to 16.5 and 11.8 up to 15.6 cm respectively. Also a possible urinary bladder hematoma. On admission she started on IV fluid, vitamin K 5 mg and pain medication. ER team also ordered blood 08/26/2021 Patient is fully awake and oriented, lying in bed in mild to moderate distress due to pain, she is receiving Dilaudid for pain control. Patient also made nothing by mouth for her intra-abdominal hematoma and duodenal lesion with suspected perforation, CT of the abdomen and pelvis without contrast repeated and showed progressive left retroperitoneal hematoma concerning for active bleeding but hemoglobin is stable today at 9.1 compared to 7.5 yesterday. Also she has right pelvic hematoma, indicating with urinary bladder. Urine culture is actually going to euro cocci, group D and patient with tachycardia could be related to infection and bleeding and leukocytosis concerning for sepsis. Patient continued on normal saline at 100 mL per hour, Unasyn is added. Proton discussed started elevated 0.4. WBCs 15.4. INR is back to normal at 1.1. Several consultants on the case Patient was to be DO NOT RESUSCITATE today and she was considering comfort care. As per staff granddaughter is at bedside and aware of patient plan for more conservative uncomfortable measures. 08/27/2021 Patient remains awake and still have uncontrolled pain, heart Dilaudid increased to 1 mg every 2 hours. Blood pressure is borderline and therefore a bolus of 500 mL is a provided. She remains on Unasyn and normal saline 100 mL per hour. Coumadine is a stopped and recommended to discontinue it even on discharge, this is the second episode of severe bleeding within short period of time. I discussed with the patient her wishes for comfort measures, she wants to wait now and discussed with Dr. Cantu. I discussed the case with Dr. Cantu myself, I would recommend to continue with medical management for 2-3 days to see patient response to treatment. Patient has continuous oozing of blood per urethral orifice Urology team has been evaluated for possible pelvic hematoma connected to the urinary bladder. However patient is a very poor surgical candidate. Prognosis remains guarded 08/31/2021, this is the first day I started taking care of the patient , again Today patient is lying in bed in mild distress due to her abdominal pain which she rated at 7/10 in severity but it looks less severe compared to last week. No more evidence of active bleeding and actually her hemoglobin has been stable at 8.2. Patient improved 110/65 this morning and therefore I will lower her D5 normal saline done to 50 mL per hour. Also patient On Unasyn. Tasneem Lovenox were discontinued and patient informed and agrees. Risks and benefits are explained. Still hesitant about how aggressive she wants to proceed with the treatment, she: Me she does not want more test but she agrees to blood work. However she states she is not ready for hospice and she was discussed with her family first. Bid side nurse page is informed 09/01/2021 Patient today is awake and alert, looks less distract, although she is little bit anxious. She was able to sit in the chair today for the first time and she feels satisfied with that. Her abdominal pain yesterday about 7/10, she has mild leg edema and basal crepitation, IV fluid was discontinued, her vitals are stable and creatinine normal at patient appetite is improving. Bagley catheter in a Place Hemoglobin stable at 8.2. Low potassium and magnesium were replaced Continue to hold anticoagulation Discussed with patient, she does not want hospice but she agreeable for palliative consult as an outpatient. Discussed with the bedside nurse 09/02/2021 Patient remains clinically stable, she is more awake and alert and comfortable but today's complaining from low back pain, her abdominal pain is 2-3/10 in severity, she wants Tylenol, lidocaine patch on Petros medication for her back pain. Hemoglobin is stable, coumadine and anticoagulation were held indefinitely, but is explained for the patient and she verbalized understanding and she is aware of the risk of stroke and she does not want anticoagulation either. Risk of bleeding is high as patient has 2 episodes of serious bleeding required ICU admission last time. She has bilateral leg swelling on oral Lasix 60 mg daily, will give extra doses of IV Lasix while holding oral Lasix today. Replace potassium and magnesium. Surgery team signed off Neurology team still on the case we will see the recommendation Possible discharge in 24 to 48-hour this patient remains clinically stable. Discussed the case with oncology team today as well, no further workup admitting the patient for discharge once medically clear pt wants palliative consult as outpt, cace kitchen manager was consulted Objective - Vital Signs Vital signs: Vital Signs Temp 98 F 09/02/21 04:00 Pulse 60 09/02/21 12:05 Resp 18 09/02/21 04:00 BP 98/51 09/02/21 04:00 Pulse Ox 95 09/02/21 04:00 FiO2 Intake & Output 09/01/21 09/02/21 09/02/21 18:59 06:59 18:59 Intake Total 360 240 Output Total 475 450 Balance -115 -450 240 Weight 97 kg Intake: Oral 360 240 Output: Urine 475 450 Other: Voiding Method Indwelling Catheter Indwelling Catheter # Bowel Movements 1 - Exam -GENERAL: The patient is alert and oriented x3, not in any acute distress. Well developed, well nourished. Generally weak. Obese HEENT: Pupils are round and equally reacting to light. EOMI. No scleral icterus. No conjunctival pallor. Normocephalic, atraumatic. No pharyngeal erythema. No th yromegaly. CARDIOVASCULAR: S1 and S2 present. No murmurs, rubs, or gallops. PULMONARY: Chest is clear to auscultation, no wheezing or crackles. -ABDOMEN: Soft, nontender, nondistended, normoactive bowel sounds. No palpable organomegaly. Large fluctuant Left abdominal wall swelling MUSCULOSKELETAL: No joint swelling or deformity. EXTREMITIES: No cyanosis, clubbing, or pedal edema. NEUROLOGICAL: Gross neurological examination did not reveal any focal deficits. SKIN: No rashes. No petechiae - Labs CBC & Chem 7: 09/02/21 09:52 09/02/21 09:52 Labs: Abnormal Lab Results - Last 24 Hours (Table) 08/29/21 09/01/21 09/02/21 Range/Units 08:20 23:34 09:52 RBC (3.80-5.40) m/uL Hgb (11.4-16.0) gm/dL Hct (34.0-46.0) % MCV (80.0-100.0) fL MCHC (31.0-37.0) g/dL RDW (11.5-15.5) % Macrocytosis Sodium 135 L (137-145) mmol/L Potassium 3.2 L 3.3 L (3.5-5.1) mmol/L Glucose 110 H (74-99) mg/dL Calcium 8.2 L (8.4-10.2) mg/dL Albumin (PEP) 2.24 L (3.80-4.90) g/dL Gcnyh-6-Rvclkposz 0.47 H (0.10-0.40) g/dL Beta Globulins 0.55 L (0.60-1.30) g/dL 09/02/21 Range/Units 09:52 RBC 2.71 L (3.80-5.40) m/uL Hgb 8.6 L (11.4-16.0) gm/dL Hct 28.0 L (34.0-46.0) % MCV 103.5 H (80.0-100.0) fL MCHC 30.5 L (31.0-37.0) g/dL RDW 18.9 H (11.5-15.5) % Macrocytosis Marked A Sodium (137-145) mmol/L Potassium (3.5-5.1) mmol/L Glucose (74-99) mg/dL Calcium (8.4-10.2) mg/dL Albumin (PEP) (3.80-4.90) g/dL Hwaia-0-Bczfzdrbb (0.10-0.40) g/dL Beta Globulins (0.60-1.30) g/dL Assessment and Plan Assessment: Acute urinary tract infection with enterococcus, group D Possible sepsis with leukocytosis and tachycardia Worsening acute abdominal wall and pelvic hematoma and possible urinary bladder hematoma Right pelvic hematoma indicating with urinary bladder Acute blood loss anemia, secondary to above. Heterogeneous area of the first and second part of the duodenum 2.1 x 3.2 x 3.8 cm Recent history of covid Pneumonia COPD, no acute exacerbation History of DVT on warfarin (on hold) History of atrial fibrillation on warfarin with rate controlled Multiple myeloma, she follows up with Dr. Beatty. Last treatment was one week prior to admission to last hospital Chronic leukocytosis Plan: This is a pleasant 86 his old female who presents with multiple hematomas, duodenal lesion Continue with monitoring hemoglobin Discontinue Lovenox and warfarin Surgical team consult Lower normal saline to 50 mL per hour Continue with Unasyn Also we will consult cardiology and hematology/oncology teams Labs and medication were reviewed.. Continue same treatment. Continue with symptomatic treatment. Resume home medication. Monitor lytes and vitals. DVT and GI prophylaxis. Further recommendations depends on the clinical course of the patient DVT prophylaxis: No anticoagulation in view of hematoma and bleeding GI Prophylaxis: Protonix PT/OT: From ECF prognosis remains guarded Patient has DO NOT RESUSCITATE order based upon her wishes
[2021-09-02] MEDS: DULoxetine HCL 60 MG CAPSULE.DR PO SCH (19:27)
[2021-09-02] MEDS: MONTELUKAST 10 MG TAB PO SCH (19:28)
[2021-09-02] MEDS: LATANOPROST 0.005% OPHTH DROPS 2.5 ML BTL BOTH EYES SCH (19:28)
[2021-09-03] MEDS: AMPICILLIN-SULBACTAM 3 GM in SODIUM CHLORIDE 0.9% 100 ML IVPB SCH ×4 (06:23→23:52)
[2021-09-03] MEDS: SYMBICORT 160-4.5 MCG INHALER INHALATION SCH ×2 (07:24→20:39)
[2021-09-03] MEDS: ALBUTEROL NEBULIZED 2.5 MG/3 ML INHALATION SCH ×4 (07:28→20:39)
[2021-09-03] MEDS: PANTOPRAZOLE 40 MG/10 ML VIAL IVP SCH ×2 (08:52→21:12)
[2021-09-03] MEDS: ACYCLOVIR 200 MG CAP PO SCH ×2 (08:52→21:12)
[2021-09-03] MEDS: DOCUSATE 100 MG CAP PO SCH (08:52)
[2021-09-03] MEDS: GABAPENTIN 400 MG CAP PO SCH ×2 (08:52→21:12)
[2021-09-03] MEDS: FUROSEMIDE 20 MG TAB PO SCH (08:52)
[2021-09-03] MEDS: HYDROcodone/APAP 5-325MG 1 EACH TAB PO PRN (08:53)
[2021-09-03 08:56] LABS: Anisocytosis Slight; Basophils % (A) 0 %; Eosinophils # (A) 0.1 k/uL (0-0.7); Eosinophils % (A) 2 %; HCT 27.7 % (34.0-46.0); HGB 8.3 gm/dL (11.4-16.0); Hypochromasia Marked; Lymphocytes % (A) 21 %; MCH 30.9 pg (25.0-35.0); Macrocytosis Moderate; Mean Platelet Volume 8.9; Monocytes # (A) 0.2 k/uL (0-1.0); Monocytes % (A) 5 %; Neutrophils # (A) 3.3 k/uL (1.3-7.7); Neutrophils % (A) 69 %; Platelet Count 291 k/uL (150-450); Poikilocytosis Slight; RBC 2.69 m/uL (3.80-5.40); WBC 4.8 k/uL (3.8-10.6)
[2021-09-03] MEDS: METOPROLOL TARTRATE 25 MG TAB PO SCH ×2 (08:57→16:38)
--- NOTE | 2021-09-03 10:57 | CDI ---
Documentation Clarification Form Date: 09/03/2021 10:24:38 AM From: Shannan Vasquez RN CCDS Admit Date: 08/25/2021 11:27:00 AM Patient Name: Fabby Hanley I Visit Number: [id number] Discharge Date: ATTENTION: The Clinical Documentation Specialists (CDI) and [facility] Coding Staff appreciate your assistance in clarifying documentation. Please respond to the clarification below the line at the bottom and electronically sign. The CDI & [facility] Coding staff will review the response and follow-up if needed. Please note: Queries are made part of the Legal Health Record. If you have any questions, please contact the author of this message via ITS. Dr. Gamboa E Sheet Your patient has the documented diagnosis of unspecified Heart Failure 08/28, Cardiology consult. Additional information regarding the type, acuity of CHF is requested. History/Risk Factors: 86-year-old female presents to the ED for suspected bleeding and abdominal. Medical history: HLD, HTN and bradycardia with pacemaker. ED note, 08/25. Clinical Indicators: VS/Pulse OX: 08/25 B/P 113/83; HR 98; Temp 98.0 F Oral; SpO2 99% room air Echocardiogram Results: 08/05/2021 EF 50-55% Severe right ventricular dilatation. Severe pulmonary hypertension. Moderate to severe mitral regurgitation. Trace to mild regurgitation Aortic regurgitation. Severe tricuspid regurgitation. Treatment: 08/26 - current Lopressor 25mg PO BID; 08/26 current Lasix 60mg PO Daily; 09/02 Lasix 40mg IV x 1; 09/02 Lasix 40mg IV x 1. In your professional opinion, can you please clarify the acuity and type of Heart Failure if known? [ ] Chronic Diastolic Heart Failure (preserved EF) [ ] Acute on Chronic Diastolic Heart Failure (preserved EF) [ ] Other, please specify [ ] Unable to determine (Template Last Revised: May 2020) Chronic Diastolic Heart Failure (preserved EF) MTDD
--- NOTE | 2021-09-03 14:05 | P.PN ---
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 she was recently discharged from hospital after a prolonged stay Patient is fully awake and oriented in looks calm, little anxious, she states she has some blood in her underwear his parents this morning, she does not know how much and where was coming from and she was sent to the hospital from her ECF Patient also complained of from increasing left abdominal wall swelling and tenderness, it looks bigger than last admission. She denies any other specific symptoms, no dizziness, no chest pain or shortness of breath. No abdominal pain, no nausea vomiting or diarrhea, no vaginal complaints, no urinary complaints. Patient vitals stable, systolic blood pressure is 120 to 130s. She is a slightly tachycardic more than 90s. She has chronic leukocytosis, obesity is 16.1, hemoglobin 8.2, down to 7.5, hemoglobin dropped last admission was entered between 8-9. Platelet count is normal at 187. INR is 2.3 BMP is unremarkable, BUN is 27, creatinine 0.8. Magnesium 1.8. Urinalysis showing hematuria more than 182 and WBC more than 182. CT of the abdomen and pelvis with contrast showing heterogenous area of the first and second part of the duodenum 2.1 x 3.2 x 3.8 cm. Also there is increased pelvic and left abdominal wall hematoma 14.9 up to 16.5 and 11.8 up to 15.6 cm respectively. Also a possible urinary bladder hematoma. On admission she started on IV fluid, vitamin K 5 mg and pain medication. ER team also ordered blood 08/26/2021 Patient is fully awake and oriented, lying in bed in mild to moderate distress due to pain, she is receiving Dilaudid for pain control. Patient also made nothing by mouth for her intra-abdominal hematoma and duodenal lesion with suspected perforation, CT of the abdomen and pelvis without contrast repeated and showed progressive left retroperitoneal hematoma concerning for active bleeding but hemoglobin is stable today at 9.1 compared to 7.5 yesterday. Also she has right pelvic hematoma, indicating with urinary bladder. Urine culture is actually going to euro cocci, group D and patient with tachycardia could be related to infection and bleeding and leukocytosis concerning for sepsis. Patient continued on normal saline at 100 mL per hour, Unasyn is added. Proton discussed started elevated 0.4. WBCs 15.4. INR is back to normal at 1.1. Several consultants on the case Patient was to be DO NOT RESUSCITATE today and she was considering comfort care. As per staff granddaughter is at bedside and aware of patient plan for more conservative uncomfortable measures. 08/27/2021 Patient remains awake and still have uncontrolled pain, heart Dilaudid increased to 1 mg every 2 hours. Blood pressure is borderline and therefore a bolus of 500 mL is a provided. She remains on Unasyn and normal saline 100 mL per hour. Coumadine is a stopped and recommended to discontinue it even on discharge, this is the second episode of severe bleeding within short period of time. I discussed with the patient her wishes for comfort measures, she wants to wait now and discussed with Dr. Cantu. I discussed the case with Dr. Cantu myself, I would recommend to continue with medical management for 2-3 days to see patient response to treatment. Patient has continuous oozing of blood per urethral orifice Urology team has been evaluated for possible pelvic hematoma connected to the urinary bladder. However patient is a very poor surgical candidate. Prognosis remains guarded 08/31/2021, this is the first day I started taking care of the patient , again Today patient is lying in bed in mild distress due to her abdominal pain which she rated at 7/10 in severity but it looks less severe compared to last week. No more evidence of active bleeding and actually her hemoglobin has been stable at 8.2. Patient improved 110/65 this morning and therefore I will lower her D5 normal saline done to 50 mL per hour. Also patient On Unasyn. Tasneem Lovenox were discontinued and patient informed and agrees. Risks and benefits are explained. Still hesitant about how aggressive she wants to proceed with the treatment, she: Me she does not want more test but she agrees to blood work. However she states she is not ready for hospice and she was discussed with her family first. Bid side nurse page is informed 09/01/2021 Patient today is awake and alert, looks less distract, although she is little bit anxious. She was able to sit in the chair today for the first time and she feels satisfied with that. Her abdominal pain yesterday about 7/10, she has mild leg edema and basal crepitation, IV fluid was discontinued, her vitals are stable and creatinine normal at patient appetite is improving. Bagley catheter in a Place Hemoglobin stable at 8.2. Low potassium and magnesium were replaced Continue to hold anticoagulation Discussed with patient, she does not want hospice but she agreeable for palliative consult as an outpatient. Discussed with the bedside nurse 09/02/2021 Patient remains clinically stable, she is more awake and alert and comfortable but today's complaining from low back pain, her abdominal pain is 2-3/10 in severity, she wants Tylenol, lidocaine patch on [place] medication for her back pain. Hemoglobin is stable, coumadine and anticoagulation were held indefinitely, but is explained for the patient and she verbalized understanding and she is aware of the risk of stroke and she does not want anticoagulation either. Risk of bleeding is high as patient has 2 episodes of serious bleeding required ICU admission last time. She has bilateral leg swelling on oral Lasix 60 mg daily, will give extra doses of IV Lasix while holding oral Lasix today. Replace potassium and magnesium. Surgery team signed off Neurology team still on the case we will see the recommendation Possible discharge in 24 to 48-hour this patient remains clinically stable. Discussed the case with oncology team today as well, no further workup admitting the patient for discharge once medically clear pt wants palliative consult as outpt, cace manager content was consulted 09/03/2021 Patient remains clinically stable and improving, her abdominal pain and back pain significantly improved and there are minimal. Patient denies chest pain or dyspnea. She mainly has bilateral leg swelling and she was kept on small dose of by mouth Lasix 60 mg daily. Also she is on fluid restriction. Discussed the case with nephrology team they going to order computed tomography scan of the renal system, she still on Bagley catheter with some tinge of blood in it. Surgery team already signed off. Plan of care is already discussed with the patient upon discharge, she agrees to stop all anticoagulation. She is aware of the risk of thrombosis and stroke. She is interested in palliative consult as an outpatient. Objective - Vital Signs Vital signs: Vital Signs Temp 99.1 F 09/03/21 08:45 Pulse 88 09/03/21 11:05 Resp 16 09/03/21 08:45 BP 119/56 09/03/21 08:45 Pulse Ox 98 09/03/21 08:45 FiO2 Intake & Output 0609/03/21 09/03/21 18:59 06:59 18:59 Intake Total 600 Output Total 500 1450 Balance 100 -1450 Intake: Oral 600 Output: Urine 500 1450 Other: Voiding Method Indwelling Catheter Indwelling Catheter Indwelling Catheter # Bowel Movements 1 - Exam -GENERAL: The patient is alert and oriented x3, not in any acute distress. Well developed, well nourished. Generally weak. Obese HEENT: Pupils are round and equally reacting to light. EOMI. No scleral icterus. No conjunctival pallor. Normocephalic, atraumatic. No pharyngeal erythema. No thyromegaly. CARDIOVASCULAR: S1 and S2 present. No murmurs, rubs, or gallops. PULMONARY: Chest is clear to auscultation, no wheezing or crackles. -ABDOMEN: Soft, nontender, nondistended, normoactive bowel sounds. No palpable organomegaly. Large fluctuant Left abdominal wall swelling MUSCULOSKELETAL: No joint swelling or deformity. EXTREMITIES: No cyanosis, clubbing, or pedal edema. NEUROLOGICAL: Gross neurological examination did not reveal any focal deficits. SKIN: No rashes. No petechiae - Labs CBC & Chem 7: 09/03/21 08:06 09/02/21 18:30 Labs: Abnormal Lab Results - Last 24 Hours (Table) 08/29/21 09/03/21 Range/Units 08:20 08:06 RBC 2.69 L (3.80-5.40) m/uL Hgb 8.3 L (11.4-16.0) gm/dL Hct 27.7 L (34.0-46.0) % MCV 103.0 H (80.0-100.0) fL MCHC 30.0 L (31.0-37.0) g/dL RDW 19.0 H (11.5-15.5) % Free [place] LC, Quant 4.86 H (0.33-1.94) mg/dL Free Lambda LC, Quant 3.70 H (0.57-2.63) mg/dL Assessment and Plan Assessment: Acute urinary tract infection with enterococcus, group D Possible sepsis with leukocytosis and tachycardia Worsening acute abdominal wall and pelvic hematoma and possible urinary bladder hematoma Right pelvic hematoma indicating with urinary bladder Acute blood loss anemia, secondary to above. Heterogeneous area of the first and second part of the duodenum 2.1 x 3.2 x 3.8 cm Recent history of covid Pneumonia COPD, no acute exacerbation History of DVT on warfarin (on hold) History of atrial fibrillation on warfarin with rate controlled Multiple myeloma, she follows up with Dr. Beatty. Last treatment was one week prior to admission to last hospital Chronic leukocytosis Plan: This is a pleasant 86 his old female who presents with multiple hematomas, duodenal lesion Continue with monitoring hemoglobin Discontinue Lovenox and warfarin Surgical team consult have signed off Discontinue IV fluids Continue with Unasyn Also we will consult cardiology and hematology/oncology teams Labs and medication were reviewed.. Continue same treatment. Continue with symptomatic treatment. Resume home medication. Monitor lytes and vitals. DVT and GI prophylaxis. Further recommendations depends on the clinical course of the patient DVT prophylaxis: No anticoagulation in view of hematoma and bleeding GI Prophylaxis: Protonix PT/OT: From ECF prognosis remains guarded Patient has DO NOT RESUSCITATE order based upon her wishes
--- NOTE | 2021-09-03 14:40 | CT ---
EXAMINATION TYPE: CT Cystogram DATE OF EXAM: 09/03/2021 COMPARISON: 08/28/2021 HISTORY: 86-year-old female assess bladder perforation, gross hematuria. TECHNIQUE: Contiguous axial scanning of the lower abdomen and pelvis without IV contrast. Coronal and sagittal reconstructions performed. 50 mL Isovue 300 was mixed with 500 mL saline. 200 mL was inject ed via the patient's Bagley catheter. 4 time points were scanned. CT DLP: 3139 mGycm Automated exposure control for dose reduction was used. FINDINGS: Bagley catheter balloon located within the partially distended bladder. Some air likely relates to the injection and instrumentation. Irregular and lobulated filling defect dependently within the bladder lumen likely blood clots. Slightly less mass effect on the bladder. Suspect a communication from the bladder along the anterior lower midline There is extravasation of injected bladder contrast into the right anterior extraperitoneal hematoma currently measuring 12.1 x 9.9 cm versus 12.1 x 7.4 cm, previously. Contiguous extraperitoneal communication left anterior abdominal wall hematoma. There is communicatio n of the injected contrast as well as hemorrhage. This collection measures 14.1 cm wide versus 15.2 c m, previously. Additional convincing q.d. to the left retroperitoneum and left psoas major measuring 11.1 cm wide (1 1.5 cm, previously. Mild generalized anasarca change. Presacral edema persists, slightly increased. Left-sided clonic diverticulosis. No pelvic free fluid seen. Bones: Baastrup's disease. Hypertrophic facet arthropathy throughout. Moderate to advanced degenerati ve disc disease throughout. IMPRESSION: 1. ONGOING EXTRAPERITONEAL BLADDER LEAK. SITE OF PERFORATION LIKELY ANTERIOR LOWER MIDLINE ASPECT OF THE BLADDER. JESSICA BLADDER CONTRAST EXTRAVASATION TO INTERMIX WITH THE ANTERIOR RIGHT PARAMEDIAN BILLY CHRISTOPHER AND LEFT LOWER QUADRANT ANTERIOR EXTRAPERITONEAL HEMATOMAS. 2. THE RIGHT ANTERIOR PARAMEDIAN HEMATOMA (12.1 CM) IS RELATIVELY STABLE THOUGH THE OVERALL MASS EFFE CT ONTO THE BLADDER IS SLIGHTLY DECREASED. CONTIGUOUS ANTERIOR LEFT MID TO LOWER ABDOMINAL EXTRAPERIT JAEGER HEMATOMA STABLE TO SLIGHTLY SMALLER AT 14.1 CM (VERSUS 14.8 CM, PREVIOUSLY). 3. ADDITIONAL CONTIGUOUS LEFT RETROPERITONEAL HEMATOMA EXTENDING UP TO THE LEVEL OF THE LEFT KIDNEY A ND CONTIGUOUS WITH THE LEFT PSOAS MAJOR RELATIVELY STABLE AT 11.2 CM WIDE.
[2021-09-03 15:03] LABS: Calcium 8.2 mg/dL (8.4-10.2); Potassium 3.3 mmol/L (3.5-5.1)
[2021-09-03] MEDS: CALCIUM CARB-VIT D 500 MG-5 MCG TAB PO SCH (16:37)
[2021-09-03] MEDS: ATORVASTATIN 20 MG TAB PO SCH (16:37)
[2021-09-03] MEDS: CHOLECALCIFEROL 125 MCG (5000 IU) TABLET PO SCH (16:38)
[2021-09-03] MEDS: MONTELUKAST 10 MG TAB PO SCH (21:12)
[2021-09-03] MEDS: DULoxetine HCL 60 MG CAPSULE.DR PO SCH (21:12)
[2021-09-03] MEDS: LATANOPROST 0.005% OPHTH DROPS 2.5 ML BTL BOTH EYES SCH (21:13)
--- NOTE | 2021-09-03 21:34 | P.PN ---
Subjective Progress Note Date: 09/03/21 Bernabe catheter with gross hematuria, hgb stable, catheter required irrigation overnight. CT cystogram showed evidence of extraperiotneal bladder rupture. Objective - Vital Signs Vital signs: Vital Signs Temp 98.3 F 09/03/21 16:20 Pulse 90 09/03/21 20:49 Resp 16 09/03/21 16:20 BP 100/65 09/03/21 16:20 Pulse Ox 96 09/03/21 16:20 FiO2 Intake & Output 09/03/21 09/03/21 09/04/21 06:59 18:59 06:59 Intake Total 180 Output Total 1450 1060 600 Balance -1450 -880 -600 Weight 97 kg Intake: Oral 180 Output: Urine 1450 1060 600 Uretheral (Bernabe) 735 Other: Voiding Method Indwelling Catheter Indwelling Catheter - Constitutional General appearance: Present: no acute distress - Gastrointestinal General gastrointestinal: Present: soft. Absent: distended, tenderness - Genitourinary Genitourinary Comment(s): [address] draining Dark red urine mainly consistent with old blood clots - Labs CBC & Chem 7: 09/03/21 08:06 09/03/21 14:15 Labs: Abnormal Lab Results - Last 24 Hours (Table) 09/03/21 09/03/21 Range/Units 08:06 14:15 RBC 2.69 L (3.80-5.40) m/uL Hgb 8.3 L (11.4-16.0) gm/dL Hct 27.7 L (34.0-46.0) % MCV 103.0 H (80.0-100.0) fL MCHC 30.0 L (31.0-37.0) g/dL RDW 19.0 H (11.5-15.5) % Sodium 134 L (137-145) mmol/L Potassium 3.3 L (3.5-5.1) mmol/L Carbon Dioxide 32 H (22-30) mmol/L Calcium 8.2 L (8.4-10.2) mg/dL Assessment and Plan Assessment: 86 year old admitted to the hospital with gross hematuria and abdominal hematoma, initial cystogram showed no evidence of bladder perforation. CT cystogram was performed today which showed evidence of extraperitoneal bladder perforation patient still has gross hematuria. But hemoglobin is stable. At this time the Bernabe catheter has been in place for approximately one week. Given that it's an extraperitoneal bladder rupture and catheter has only been in place for one week will continue with conservative management. Will keep the Bernabe catheter in place and plan on repeating cystogram in two weeks
[2021-09-03] MEDS: POTASSIUM CHLORIDE ER 20 MEQ TAB.ER PO SCH (23:52)
[2021-09-04] MEDS: POTASSIUM CHLORIDE ER 20 MEQ TAB.ER PO SCH (02:31)
[2021-09-04] MEDS: ALPRAZolam 0.25 MG TAB PO PRN (02:33)
[2021-09-04 05:23] VITALS: RESP 18
[2021-09-04] MEDS: AMPICILLIN-SULBACTAM 3 GM in SODIUM CHLORIDE 0.9% 100 ML IVPB SCH ×2 (05:33→12:36)
[2021-09-04 06:25] LABS: Anisocytosis Slight; HCT 27.2 % (34.0-46.0); HGB 8.5 gm/dL (11.4-16.0); Hypochromasia Marked; MCH 31.2 pg (25.0-35.0); MCHC 31.1 g/dL (31.0-37.0); MCV 100.4 fL (80.0-100.0); Macrocytosis Moderate; Mean Platelet Volume 8.6; Platelet Count 311 k/uL (150-450); Poikilocytosis Slight; RBC 2.71 m/uL (3.80-5.40); RDW 18.2 % (11.5-15.5); WBC 5.5 k/uL (3.8-10.6)
[2021-09-04 07:34] LABS: African American GFR (CKD) >90 (>60 ml/min/1.73 sqM); Anion Gap 0 mmol/L; Blood Urea Nitrogen 14 mg/dL (7-17); Calcium 8.1 mg/dL (8.4-10.2); Carbon Dioxide 31 mmol/L (22-30); Chloride 104 mmol/L (98-107); Glucose 83 mg/dL (74-99); Non-African American GFR(CKD) 80 (>60 ml/min/1.73 sqM); Potassium 3.4 mmol/L (3.5-5.1); Sodium 135 mmol/L (137-145)
[2021-09-04] MEDS: ALBUTEROL NEBULIZED 2.5 MG/3 ML INHALATION SCH ×3 (07:43→16:23)
[2021-09-04] MEDS: SYMBICORT 160-4.5 MCG INHALER INHALATION SCH ×2 (07:44→16:31)
[2021-09-04] MEDS: ACYCLOVIR 200 MG CAP PO SCH (09:08)
[2021-09-04] MEDS: GABAPENTIN 400 MG CAP PO SCH (09:09)
[2021-09-04] MEDS: DOCUSATE 100 MG CAP PO SCH (09:09)
[2021-09-04] MEDS: METOPROLOL TARTRATE 25 MG TAB PO SCH ×2 (09:09→15:58)
[2021-09-04] MEDS: PANTOPRAZOLE 40 MG/10 ML VIAL IVP SCH (09:10)
[2021-09-04] MEDS: FUROSEMIDE 20 MG TAB PO SCH (09:10)
--- NOTE | 2021-09-04 13:10 | P.DS ---
Providers Date of admission: 08/25/21 11:27 Attending physician: Cooper Leal MD Consults: 08/25/21 11:26 Consult Physician Routine Consulting Provider: Edgardo Mancuso Consult Reason/Comments: Abdominal and pelvic hematoma Do you want consulting provider notified?: Already Contacted 08/25/21 12:17 Consult Physician Urgent Consulting Provider: Guevara Beatty Consult Reason/Comments: bleeding Do you want consulting provider notified?: Yes 08/26/21 19:14 Consult Physician Routine Consulting Provider: Manjeet Vale Consult Reason/Comments: Pelvic hematoma Do you want consulting provider notified?: Yes 08/27/21 10:29 Consult Physician Urgent Consulting Provider: Jaime Genao Consult Reason/Comments: hematoma with urinary bladder connection, still bleeding Do you want consulting provider notified?: Yes Primary care physician: [facility] Course: Diagnoses -Severe bleeding and coagulopathy secondary to anticoagulation, second episode in 1-2 months -Worsening acute abdominal wall and pelvic hematoma and possible urinary bladder hematoma. CT showing bc bladder contrast extravasation suspicious for ruptured bladder but it is extra peritoneal bleed. Neurologist recommended to keep the Bagley catheter and repeat CAT scan in 2 weeks as an outpatient. No surgical intervention -Right pelvic hematoma indicating with urinary bladder -Acute blood loss anemia, secondary to above. -Acute urinary tract infection with enterococcus, group D -Possible sepsis with leukocytosis and tachycardia. Improved -Heterogeneous area of the first and second part of the duodenum 2.1 x 3.2 x 3.8 cm -Recent history of covid Pneumonia -COPD, no acute exacerbation -History of DVT on warfarin (on hold) -History of atrial fibrillation on warfarin with rate controlled -Multiple myeloma, she follows up with Dr. Beatty. Last treatment was one week prior to admission to last hospital -Chronic leukocytosis -Chronic diastolic heart failure with ejection fraction of 50-55% Hospital course: This is a pleasant 85 years old female with past medical history of deep venous thrombosis, rheumatoid arthritis that she follow-up with simplex operator, hyperlipidemia, hypertension, osteoarthritis, COPD. she was recently discharged from hospital after a prolonged stay. [facility] acute bleeding in her underwear's. Including urinary bleeder and abdominal wall hematoma. CT of the abdomen and pelvis with contrast showing heterogenous area of the first and second part of the duodenum 2.1 x 3.2 x 3.8 cm. Also there is increased pelvic and left abdominal wall hematoma 14.9 up to 16.5 and 11.8 up to 15.6 cm respectively. Also a possible urinary bladder hematoma. She was treated with vitamin K. Also she was treated with IV hydration. Her Coumadin and Lovenox were held indefinitely recommendation of consultants including vascular team consult and missile mechanic and surgeon teams. Her condition is stabilized over time and her bleeding stopped. Hemoglobin remained stable and on the day of discharge was 8.5. CAT scan done yesterday shows stable hematoma with no worsening, actually there is some elements of decreasing in size. No surgical intervention is warranted Also patient has evidence of Penterococcus UTI which is treated with Unasyn. Patient can be discharged a short course of Augmentin There was also evidence of urinary bladder perforation and extravasation of the contrast from the urinary bladder. She's been evaluated by urologist. Bagley catheter was placed. Attention was treated conservatively, no surgical intervention. Urologist wanted to keep the Bagley catheter in place and repeat CAT scan in 2 weeks if patient agrees. -Also patient evidence with fluid overload and heart failure on admission, therefore recommend to continue with oral Lasix and fluid restriction upon discharge. Please monitor BMP and magnesium in 2-3 days Today patient is fully awake and oriented, she looks more comfortable. She denies abdominal pain only 0-1/10 in severity. No back pain. No other complaints. Bagley catheter in place. Patient agreed to go to [facility] today. Patient was cleared for discharge by all consultants including general surgery, hematology oncology, vascular surgery, and urologist. Problems and management plan were discussed with the patient and he verbalized understanding and acceptance Patient was found stable and can be discharged to [facility]CF in regard to prognosisver he needs follow-up as an outpatient. Patient was instructed to follow up with PCP Dr. Rayo within one week and patient agrees Patient also was instructed to follow up with urologist Dr. robertson in 2 weeks, she was instructed she will need CAT scan of the abdomen and pelvis in 2 weeks, however patient is hesitant to do with. Risks and benefits are explained to her. Also patient is interested with outpatient palliative consult, psychotherapist social worker informed Also patient was instructed to follow up with Dr. Rosario in 2-3 weeks, Dr. Mancuso surgeon in [address] Maya fur matcher in 2 weeks Physical exam Gen: patient is a AAOx3, no distress CVS: S1-S2, RRR, no murmur -Lungs: B/L CTA, no wheezing. Mild basal crepitation -Abdomen: soft, no distention, no tenderness, positive bowel sounds. Left abdominal hematoma, improving and decreasing in size -Extremity: Mild bilateral pitting leg edema . No induration Time spent more than 35 minutes Patient Condition at Discharge: Stable Plan - Discharge Summary Discharge Rx Participant: No New Discharge Prescriptions: No Action RX: Bimatoprost [Lumigan 0.01% Ophth Soln] 1 drop BOTH EYES HS@1999 RX: Montelukast [Singulair] 10 mg PO HS@1999 RX: allopurinoL [Zyloprim] 100 mg PO BID@0800,1999 RX: Omeprazole 20 mg PO BID@0800,1700 RX: DULoxetine HCL [Cymbalta] 60 mg PO HS@1999 RX: Nitroglycerin Sl Tabs [Nitrostat] 0.4 mg SUBLINGUAL Q5M PRN PRN Reason: Chest Pain RX: Multivitamins, Thera [Multivitamin (formulary)] 1 tab PO DAILY@1700 RX: Folic Acid 1 mg PO DAILY@0800 RX: Metoprolol Tartrate [Lopressor] 25 mg PO BID@0800,1700 RX: Psyllium Husk 100% [Metamucil Packet] 6 gm PO DAILY@0800 RX: ondansetron HCL [Zofran] 8 mg PO Q6H PRN PRN Reason: Nausea RX: Famotidine [Pepcid] 20 mg PO DAILY@0800 RX: Acetaminophen Tab [Tylenol] 650 mg PO Q6HR PRN tab PRN Reason: Mild Pain Or Fever > 100.5 RX: Ascorbic Acid [Vitamin C] 1,000 mg PO DAILY@1700 bisacodyL [Dulcolax] 10 mg RECTAL DAILY PRN PRN Reason: Constipation RX: Cholecalciferol [Vitamin D3 (125 Mcg = 5000 Iu)] 125 mcg PO DAILY@1700 Furosemide [Lasix] 60 mg PO DAILY@0800 Magnesium Hydroxide [Milk of Magnesia] 2,400 mg PO Q48H PRN PRN Reason: Constipation RX: predniSONE See Taper PO DAILY RX: Sodium Bicarbonate Tab 650 mg PO BID@0800,1700 RX: Tiotropium 2.5 Mcg/Puff [Spiriva Respimat 2.5 Mcg] 2 puff INHALATION RT- DAILY@0800 Zinc Gluconate [Zinc] 50 mg PO DAILY@1700 RX: HYDROcodone/APAP 5-325MG [Horicon 5-325] 1 tab PO Q6H PRN PRN Reason: Moderate Pain RX: Atorvastatin [Lipitor] 20 mg PO DAILY@170 RX: Potassium Chloride ER [K-Dur 10] 10 meq PO DAILY@0800 RX: Acyclovir 400 mg PO BID@799,1999 RX: Docusate [Colace] 100 mg PO DAILY@0800 RX: Calcium Carbonate/Vitamin D3 [Calcium 600 mg-D3 10 Mcg (400 Iu)] 1 cap PO DAILY@170 RX: hydrALAZINE HCL [Apresoline] 25 mg PO QID PRN tab PRN Reason: Blood Pressure - High RX: guaiFENesin-DM 100-10MG/5ML [Robitussin DM] 10 ml PO Q6HR PRN ml PRN Reason: Cough RX: Albuterol Inhaler [Ventolin Hfa Inhaler] 2 puff INHALATION RT-QID gm RX: Albuterol Inhaler [Ventolin Hfa Inhaler] 2 puff INHALATION RT-Q2H PRN gm PRN Reason: Shortness Of Breath Or Wheezing RX: Budesonide-Formot 160-4.5 Mcg [Symbicort 160-4.5 Mcg Inhaler] 2 puff INHALATION RT-BID@0800,1700 RX: Enoxaparin [Lovenox] 150 mg SQ DAILY@1700 RX: Gabapentin [Neurontin] 400 mg PO BID@08,2099 Na Phos,M-B/Na Phos,Di-Ba [Fleet Adult] 133 ml RECTAL DAILY PRN PRN Reason: Constipation Warfarin [Coumadin] 2.5 mg PO HS@2100 Discharge Medication List RX: Bimatoprost [Lumigan 0.01% Ophth Soln] 1 drop BOTH EYES HS@199911/07/13 [History] RX: Montelukast [Singulair] 10 mg PO HS@199911/07/13 [History] RX: allopurinoL [Zyloprim] 100 mg PO BID@799,199907/09/14 [History] RX: DULoxetine HCL [Cymbalta] 60 mg PO HS@199911/22/18 [History] RX: Folic Acid 1 mg PO DAILY@0802/10/20 [History] RX: Multivitamins, Thera [Multivitamin (formulary)] 1 tab PO DAILY@169902/10/20 [History] RX: Nitroglycerin Sl Tabs [Nitrostat] 0.4 mg SUBLINGUAL Q5M PRN 02/10/20 [History] RX: Atorvastatin [Lipitor] 20 mg PO DAILY@169908/31/20 [History] RX: Metoprolol Tartrate [Lopressor] 25 mg PO BID@08,169908/31/20 [History] RX: Acyclovir 400 mg PO BID@799,199908/03/21 [History] RX: Calcium Carbonate/Vitamin D3 [Calcium 600 mg-D3 10 Mcg (400 Iu)] 1 cap PO DA ELBERT@169908/03/21 [History] RX: Docusate [Colace] 100 mg PO DAILY@79908/03/21 [History] RX: Potassium Chloride ER [K-Dur 10] 10 meq PO DAILY@79908/03/21 [History] RX: Psyllium Husk 100% [Metamucil Packet] 6 gm PO DAILY@79908/03/21 [History] RX: ondansetron HCL [Zofran] 8 mg PO Q6H PRN 08/03/21 [History] RX: Acetaminophen Tab [Tylenol] 650 mg PO Q6HR PRN tab 08/19/21 [Rx] RX: Albuterol Inhaler [Ventolin Hfa Inhaler] 2 puff INHALATION RT-Q2H PRN gm 08/19/21 [Rx] RX: Albuterol Inhaler [Ventolin Hfa Inhaler] 2 puff INHALATION RT-QID gm 08/19/21 [Rx] RX: guaiFENesin-DM 100-10MG/5ML [Robitussin DM] 10 ml PO Q6HR PRN ml 08/19/21 [Rx] Furosemide [Lasix] 60 mg PO DAILY@0808/25/21 [History] Magnesium Hydroxide [Milk of Magnesia] 2,400 mg PO Q48H PRN 08/25/21 [History] Na Phos,M-B/Na Phos,Di-Ba [Fleet Adult] 133 ml RECTAL DAILY PRN 08/25/21 [History] RX: Ascorbic Acid [Vitamin C] 1,000 mg PO DAILY@169908/25/21 [History] RX: Budesonide-Formot 160-4.5 Mcg [Symbicort 160-4.5 Mcg Inhaler] 2 puff INHALATION RT-BID@0800,17008/25/21 [History] RX: Cholecalciferol [Vitamin D3 (125 Mcg = 5000 Iu)] 125 mcg PO DAILY@169908/25/21 [History] RX: Gabapentin [Neurontin] 400 mg PO BID@0800,209908/25/21 [History] RX: Tiotropium 2.5 Mcg/Puff [Spiriva Respimat 2.5 Mcg] 2 puff INHALATION RT- DAILY@79908/25/21 [History] Zinc Gluconate [Zinc] 50 mg PO DAILY@169908/25/21 [History] bisacodyL [Dulcolax] 10 mg RECTAL DAILY PRN 08/25/21 [History] Amoxic-Pot Clav 500-125 mg [Augmentin 500-125 mg] 1 tab PO Q12HR 7 Days #14 tab 09/04/21 [Rx] Furosemide [Lasix] 40 mg PO HS #10 tablet 09/04/21 [Rx] Omeprazole [PriLOSEC] 20 mg PO AC-BID #60 cap 09/04/21 [Rx] RX: Gabapentin [Neurontin] 400 mg PO BID@0800,2100 #10 cap 09/04/21 [Rx] RX: HYDROcodone/APAP 5-325MG [Horicon 5-325] 1 tab PO Q12H PRN #8 tab 09/04/21 [Rx] Follow up Appointment(s)/Referral(s): Guevara Beatty MD [STAFF PHYSICIAN] - 1 Week Royer Rayo DO [Primary Care Provider] - 1-2 days Manjeet Vale MD [STAFF PHYSICIAN] - 2 Weeks (urologist )
--- NOTE | 2021-09-04 13:43 | P.PN ---
Subjective Bernabe catheter hgb stable, catheter required irrigation overnight. CT cystogram showed evidence of extraperiotneal bladder rupture Objective - Vital Signs Vital signs: Vital Signs Temp 97.7 F 09/04/21 12:30 Pulse 75 09/04/21 12:30 Resp 18 09/04/21 12:30 BP 110/68 09/04/21 12:30 Pulse Ox 100 09/04/21 12:30 FiO2 Intake & Output 09/03/21 09/04/21 09/04/21 18:59 06:59 18:59 Intake Total 180 100 810 Output Total 1060 1850 150 Balance -880 -1750 660 Weight 97 kg Intake: Intake, IV Titration 100 Amount Ampicillin-Sulbactam 3 gm 100 In Sodium Chloride 0.9% 100 ml @ 200 mls/hr IVPB Q6HR [facility] Rx#:[id number] Oral 180 810 Output: Urine 1060 1850 150 Uretheral (Bernabe) 735 850 150 Other: Voiding Method Indwelling Catheter Indwelling Catheter Indwelling Catheter - Constitutional General appearance: Present: no acute distress - Gastrointestinal General gastrointestinal: Present: soft. Absent: distended, tenderness - Genitourinary Genitourinary Comment(s): bernabe draining blood tinged urine - Psychiatric Psychiatric: Present: A&O x's 3 - Labs CBC & Chem 7: 09/04/21 06:12 09/04/21 06:12 Labs: Abnormal Lab Results - Last 24 Hours (Table) 09/03/21 09/04/21 09/04/21 Range/Units 14:15 06:12 06:12 RBC 2.71 L (3.80-5.40) m/uL Hgb 8.5 L (11.4-16.0) gm/dL Hct 27.2 L (34.0-46.0) % MCV 100.4 H (80.0-100.0) fL RDW 18.2 H (11.5-15.5) % Sodium 134 L 135 L (137-145) mmol/L Potassium 3.3 L 3.4 L (3.5-5.1) mmol/L Carbon Dioxide 32 H 31 H (22-30) mmol/L Calcium 8.2 L 8.1 L (8.4-10.2) mg/dL Assessment and Plan Assessment: 86 year old admitted to the hospital with gross hematuria and abdominal hematoma, initial cystogram showed no evidence of bladder perforation. CT cystogram was performed today which showed evidence of extraperitoneal bladder perforation patient still has gross hematuria. But hemoglobin is stable. At this time the Bernabe catheter has been in place for approximately one week. Given that it's an extraperitoneal bladder rupture and catheter has only been in place for one week will continue with conservative management. Will keep the Bernabe catheter in place and plan on repeating cystogram in two weeks -Well arrange for outpatient follow up in 2 weeks with cystogram prior to follow up
[2021-09-04] MEDS: CALCIUM CARB-VIT D 500 MG-5 MCG TAB PO SCH (15:58)
[2021-09-04] MEDS: CHOLECALCIFEROL 125 MCG (5000 IU) TABLET PO SCH (15:59)
[2021-09-04] MEDS: ATORVASTATIN 20 MG TAB PO SCH (15:59)
[2021-09-04 16:33] VITALS: BP 108/71; PULSE 89; TEMP 98.4
[2021-09-04] MEDS: HYDROcodone/APAP 5-325MG 1 EACH TAB PO PRN (18:01)
== END 2021-09-04 18:33 | DRG 813 ==
LOC: EC 08:26 → 3SCARD 11:27
PROVIDERS: ADMIT Internal Medicine; ATTEND Internal Medicine
PROC: 30233N1 Transfusion of Nonautologous Red Blood Cells into Peripheral Vein, Percutaneous Approach (ICD-10-PCS; principal; 2021-08-25)
DX: D68.32 Hemorrhagic disorder due to extrinsic circulating anticoagulants (principal); A41.81 Sepsis due to Enterococcus; K66.1 Hemoperitoneum; N39.0 Urinary tract infection, site not specified; D62 Acute posthemorrhagic anemia; I48.20 Chronic atrial fibrillation, unspecified; C90.00 Multiple myeloma not having achieved remission; S37.22XA Contusion of bladder, initial encounter; I50.32 Chronic diastolic (congestive) heart failure; S30.1XXA Contusion of abdominal wall, initial encounter; R58 Hemorrhage, not elsewhere classified; T45.515A Adverse effect of anticoagulants, initial encounter; B95.2 Enterococcus as the cause of diseases classified elsewhere; R31.0 Gross hematuria; J44.9 Chronic obstructive pulmonary disease, unspecified; Z79.01 Long term (current) use of anticoagulants; D72.829 Elevated white blood cell count, unspecified; D46.4 Refractory anemia, unspecified; E78.5 Hyperlipidemia, unspecified; I11.0 Hypertensive heart disease with heart failure; M06.9 Rheumatoid arthritis, unspecified; E66.9 Obesity, unspecified; Z68.34 Body mass index [BMI] 34.0-34.9, adult; M19.90 Unspecified osteoarthritis, unspecified site; N32.89 Other specified disorders of bladder; Z66 Do not resuscitate; M54.50 Low back pain, unspecified; K31.89 Other diseases of stomach and duodenum; Z96.651 Presence of right artificial knee joint; I45.4 Nonspecific intraventricular block; M10.9 Gout, unspecified; H40.9 Unspecified glaucoma; M54.2 Cervicalgia; M54.9 Dorsalgia, unspecified; Z86.16 Personal history of COVID-19; Z87.01 Personal history of pneumonia (recurrent); Z86.718 Personal history of other venous thrombosis and embolism; Z79.51 Long term (current) use of inhaled steroids; Z79.899 Other long term (current) drug therapy; Z87.891 Personal history of nicotine dependence; Z87.2 Personal history of diseases of the skin and subcutaneous tissue; Z95.0 Presence of cardiac pacemaker; Z90.49 Acquired absence of other specified parts of digestive tract; Z90.89 Acquired absence of other organs; Z98.890 Other specified postprocedural states; Z98.51 Tubal ligation status; Z98.42 Cataract extraction status, left eye; Z98.41 Cataract extraction status, right eye; Z88.8 Allergy status to other drugs, medicaments and biological substances; Z91.048 Other nonmedicinal substance allergy status; Z80.8 Family history of malignant neoplasm of other organs or systems; Z82.5 Family history of asthma and other chronic lower respiratory diseases
CPT/HCPCS: 36415; 51610; 72192; 74176; 74177; 74450; 76856; 80048; 80053; 81001; 82150; 82607; 82728; 82746; 82784; 83540; 83550; 83605; 83615; 83690; 83735; 83883; 84132; 84145; 84165; 85025; 85027; 85045; 85610; 85652; 85730; 86038; 86431; 86850; 86900; 86901; 86920; 87077; 87086; 87186; 93005; 94640; 96361; 96365; 96375; 96376; 99285

== ENCOUNTER 2021-09-18 17:30 | Inpatient (IN) | payer MEDICARE ==
--- NOTE | 2021-09-18 18:17 | ED ---
Female Urogenital HPI - General Chief complaint: Urogenital Stated complaint: Cath Issues Time Seen by Provider: 09/18/21 18:00 Source: patient, EMS, RN notes reviewed Mode of arrival: EMS Limitations: physical limitation - History of Present Illness Initial comments: This is a pleasant 86-year-old female with history of atrial fibrillation and recent COVID-19 infection. Patient was sent in by [facility] for nonfunctioning Bagley catheter. She states that this started malfunctioning earlier today. It is not draining urine. They tried to flush the catheter at the nursing facility and this was unsuccessful. Patient states she does feel some pressure in her bladder. Patient does admit that she has had some lower abdominal discomfort for the last 3 days. Although she is denying any significant pain.. She been eating and drinking normally. No fever or chills. Patient states she feels fine otherwise. No headache, no fever or chills, no changes in vision or hearing, no sore throat or difficulty with speech, no neck pain, no chest pain or shortness of breath, no abdominal pain, no nausea or vomiting, no changes in bowel movements, no numbness or tingling, no extremity pain, no skin rashes or lesions. - Related Data Home Medications Medication Instructions Recorded Confirmed Bimatoprost [Lumigan 0.01% Ophth 1 drop BOTH EYES HS@199911/07/13 09/18/21 Soln] Montelukast [Singulair] 10 mg PO HS@199911/07/13 09/18/21 allopurinoL [Zyloprim] 100 mg PO BID@0807/09/14 09/18/21 DULoxetine HCL [Cymbalta] 60 mg PO HS@199911/22/18 09/18/21 Folic Acid 1 mg PO DAILY@0800 02/10/20 09/18/21 Multivitamins, Thera [Multivitamin 1 tab PO DAILY@1700 02/10/20 09/18/21 (formulary)] Nitroglycerin Sl Tabs [Nitrostat] 0.4 mg SUBLINGUAL Q5M PRN 02/10/20 09/18/21 Atorvastatin [Lipitor] 20 mg PO DAILY@169908/31/20 09/18/21 Metoprolol Tartrate [Lopressor] 25 mg PO BID@0800,17008/31/20 06/17/22 Acyclovir [Zovirax] 400 mg PO BID@0800,199908/03/21 09/18/21 Calcium Carbonate/Vitamin D3 1 cap PO DAILY@169908/03/21 09/18/21 [Calcium 600 mg-D3 10 Mcg (400 Iu)] Docusate [Colace] 100 mg PO DAILY@79908/03/21 09/18/21 Psyllium Husk 100% [Metamucil 6 gm PO DAILY@79908/03/21 09/18/21 Packet] ondansetron HCL [Zofran] 8 mg PO Q6H PRN 08/03/21 09/18/21 Ascorbic Acid [Vitamin C] 1,000 mg PO DAILY@169908/25/21 09/18/21 Budesonide-Formot 160-4.5 Mcg 2 puff INHALATION RT-BID@0800,169908/25/21 09/18/21 [Symbicort 160-4.5 Mcg Inhaler] Cholecalciferol [Vitamin D3 (125 125 mcg PO DAILY@169908/25/21 09/18/21 Mcg = 5000 Iu)] Furosemide [Lasix] 60 mg PO DAILY@79908/25/21 09/18/21 Gabapentin [Neurontin] 400 mg PO BID@0800,209908/25/21 09/18/21 Na Phos,M-B/Na Phos,Di-Ba [Fleet 133 ml RECTAL DAILY PRN 08/25/21 09/18/21 Adult] Tiotropium 2.5 Mcg/Puff [Spiriva 2 puff INHALATION RT-DAILY@79908/25/21 09/18/21 Respimat 2.5 Mcg] Zinc Gluconate [Zinc] 50 mg PO DAILY@169908/25/21 09/18/21 bisacodyL [Dulcolax] 10 mg RECTAL DAILY PRN 08/25/21 09/18/21 ALPRAZolam [Xanax] 0.25 mg PO BID PRN 09/18/21 09/18/21 Albuterol Sulfate [Ventolin HFA] 2 puff INHALATION 09/18/21 09/18/21 RT-QID@08,,, HYDROcodone/APAP 5-325MG [[place] 1 tab PO Q8HR PRN 09/18/21 09/18/21 5-325] Loperamide [Imodium] 2 mg PO QID PRN 09/18/21 09/18/21 Magnesium Hydroxide [Milk of 7,200 mg PO DAILY PRN 09/18/21 09/18/21 Magnesia Concentrate] Omeprazole 20 mg PO BID@0800,1700 09/18/21 09/18/21 Potassium Chloride ER [K-Dur 20] 20 meq PO DAILY@1700 09/18/21 09/18/21 Previous Rx's Medication Instructions Recorded Acetaminophen Tab [Tylenol] 650 mg PO Q6HR PRN tab 08/19/21 Albuterol Inhaler [Ventolin Hfa 2 puff INHALATION RT-Q2H PRN gm 08/19/21 Inhaler] guaiFENesin-DM 100-10MG/5ML 10 ml PO Q6HR PRN ml 08/19/21 [Robitussin DM] Allergies Allergy/AdvReac Type Severity Reaction Status Date / Time LUNA Inhibitors AdvReac Cough Verified 09/18/21 21:25 IV STEROIDS Allergy Itching Uncoded 08/25/21 08:36 tape Allergy Unknown Uncoded 08/25/21 08:36 Review of Systems ROS Statement: Those systems with pertinent positive or pertinent negative responses have been documented in the HPI. ROS Other: All systems not noted in ROS Statement are negative. Past Medical History Past Medical History: Asthma, Cancer, COPD, Deep Vein Thrombosis (DVT), Hyperlipidemia, Hypertension, Osteoarthritis (OA), Rheumatoid Arthritis (RA), Skin Disorder Additional Past Medical History / Comment(s): Hx. 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 RIGHT KNEE REPLACEMENT X 2., shoulder surgeries , hiatal hernia repair, I&D L inguinal abscess, right wrist surgery Past Anesthesia/Blood Transfusion Reactions: No Reported Reaction Type of Cardiac Device: Permanent Pacemaker Device Placement Date:: October 2012 Past Psychological History: No Psychological Hx Reported Smoking Status: Former smoker Past Alcohol Use History: None Reported Past Drug Use History: None Reported - Past Family History Father Additional Family Medical History / Comment(s): Father pulmonary fibrosis Mother Family Medical History: Cancer Sister(s) Additional Family Medical History / Comment(s): melanoma General Exam - General Exam Comments Initial Comments: Elderly female does not appear to be ill or toxic. No acute distress. Appears to be adequately hydrated. Limitations: physical limitation General appearance: alert, in no apparent distress Head exam: Present: atraumatic, normocephalic, normal inspection Eye exam: Present: normal appearance, PERRL, EOMI. Absent: scleral icterus, conjunctival injection, periorbital swelling ENT exam: Present: normal exam, mucous membranes moist Neck exam: Present: normal inspection. Absent: tenderness, meningismus, lymp hadenopathy Respiratory exam: Present: normal lung sounds bilaterally. Absent: respiratory distress, wheezes, rales, rhonchi, stridor Cardiovascular Exam: Present: normal rhythm, irregular rhythm, systolic murmur. Absent: diastolic murmur, rubs, gallop, clicks GI/Abdominal exam: Present: soft, tenderness (Minimal tenderness in the suprapubic area with minimal distention.), normal bowel sounds. Absent: distended, guarding, rebound, rigid External exam: Present: other (Indwelling catheter noted) Extremities exam: Present: normal inspection, full ROM, normal capillary refill. Absent: tenderness, pedal edema, joint swelling, calf tenderness Back exam: Present: normal inspection Neurological exam: Present: alert, oriented X3, CN II-XII intact Psychiatric exam: Present: normal affect, normal mood Skin exam: Present: warm, dry, intact, normal color. Absent: rash Course Vital Signs 09/18/21 09/18/21 09/18/21 17:32 18:22 19:00 Temperature 99.2 F Pulse Rate 106 H 113 H 108 H Pulse Rate [ Pulse Oximetery ] Respiratory 19 Rate Blood Pressure 99/55 101/62 99/50 Blood Pressure [Right Arm] O2 Sat by Pulse 98 97 97 Oximetry 09/18/21 09/18/21 09/18/21 20:00 21:27 22:00 Temperature 97.6 F Pulse Rate 107 H Pulse Rate [ 97 Pulse Oximetery ] Respiratory 16 17 Rate Blood Pressure 106/64 100/66 Blood Pressure 95/59 [Right Arm] O2 Sat by Pulse 97 92 L 97 Oximetry - Reevaluation(s) Reevaluation #1: 09/18/21 19:38 Catheter was irrigated and is now functioning while draining yellow fluid. Reevaluation #2: 09/18/21 20:00 Medical record is reviewed Symptoms are improved here in the emergency department Patient is informed of results and questions answered Patient in no distress - Consultations Consultation #1: Case discussed with Dr. Kitchen from the hospitalist group. Since admission of the patient. Medical Decision Making - Medical Decision Making Patient presents with a nonfunctioning Bagley catheter. Attempted irrigation at [facility]. Does not appear to be ill or toxic. Patient states she's been feeling ill for the last 3 days. We'll send a urine culture. Septic workup.. We'll switch out the Abgley catheter. I do not feel any other workup is necessary at this time. We'll reevaluate the patient after Bagley catheter switch out. Patient meets criteria for sepsis as well as acute on chronic kidney injury. Patient admitted under Dr. Kitchen. The case was discussed in detail with ED attending physician. Presentation, findings, treatment plan discussed in detail. Supervising physicians Dr. Sanchez - Lab Data Result diagrams: 09/19/21 06:36 09/19/21 06:36 Lab Results 09/18/21 09/18/21 09/18/21 Range/Units 19:05 19:05 19:05 WBC 12.7 H (3.8-10.6) k/uL RBC 3.20 L (3.80-5.40) m/uL Hgb 10.1 L (11.4-16.0) gm/dL Hct 32.3 L (34.0-46.0) % MCV 100.8 H (80.0-100.0) fL MCH 31.6 (25.0-35.0) pg MCHC 31.4 (31.0-37.0) g/dL RDW 17.4 H (11.5-15.5) % Plt Count 472 H (150-450) k/uL MPV 7.9 Neutrophils % (Manual) 40 % Band Neuts % (Manual) 9 % Lymphocytes % (Manual) 35 % Monocytes % (Manual) 13 % Eosinophils % (Manual) 1 % Metamyelocytes % 2 % Neutrophils # (Manual) 6.20 (1.3-7.7) k/uL Lymphocytes # (Manual) 4.45 (1.0-4.8) k/uL Monocytes # (Manual) 1.65 H (0-1.0) k/uL Eosinophils # (Manual) 0.13 (0-0.7) k/uL Metamyelocytes # (Man) 0.25 H (0) k/uL Nucleated RBCs 0 (0-0) /100 WBC Manual Slide Review Performed Polychromasia Present Hypochromasia Moderate Anisocytosis Slight Macrocytosis Moderate PT 12.3 H (9.0-12.0) sec INR 1.2 H (<1.2) Sodium 128 L (137-145) mmol/L Potassium 4.3 (3.5-5.1) mmol/L Chloride 96 L (98-107) mmol/L Carbon Dioxide 26 (22-30) mmol/L Anion Gap 6 mmol/L BUN 30 H (7-17) mg/dL Creatinine 1.40 H (0.52-1.04) mg/dL Est GFR (CKD-EPI)AfAm 40 (>60 ml/min/1.73 sqM) Est GFR (CKD-EPI)NonAf 35 (>60 ml/min/1.73 sqM) Glucose 98 (74-99) mg/dL Plasma Lactic Acid Lalit (0.7-2.0) mmol/L Calcium 9.0 (8.4-10.2) mg/dL Total Bilirubin 0.4 (0.2-1.3) mg/dL AST 30 (14-36) U/L ALT 16 (4-34) U/L Alkaline Phosphatase 159 H (38-126) U/L Troponin I (0.000-0.034) ng/mL Total Protein 5.0 L (6.3-8.2) g/dL Albumin 2.3 L (3.5-5.0) g/dL Urine Color Urine Appearance (Clear) Urine RBC (0-5) /hpf Urine WBC (0-5) /hpf Urine WBC Clumps (None) /hpf Urine Bacteria (None) /hpf 09/18/21 09/18/2109/18/22 Range/Units 19:05 19:05 19:31 WBC (3.8-10.6) k/uL RBC (3.80-5.40) m/uL Hgb (11.4-16.0) gm/dL Hct (34.0-46.0) % MCV (80.0-100.0) fL MCH (25.0-35.0) pg MCHC (31.0-37.0) g/dL RDW (11.5-15.5) % Plt Count (150-450) k/uL MPV Neutrophils % (Manual) % Band Neuts % (Manual) % Lymphocytes % (Manual) % Monocytes % (Manual) % Eosinophils % (Manual) % Metamyelocytes % % Neutrophils # (Manual) (1.3-7.7) k/uL Lymphocytes # (Manual) (1.0-4.8) k/uL Monocytes # (Manual) (0-1.0) k/uL Eosinophils # (Manual) (0-0.7) k/uL Metamyelocytes # (Man) (0) k/uL Nucleated RBCs (0-0) /100 WBC Manual Slide Review Polychromasia Hypochromasia Anisocytosis Macrocytosis PT (9.0-12.0) sec INR (<1.2) Sodium (137-145) mmol/L Potassium (3.5-5.1) mmol/L Chloride (98-107) mmol/L Carbon Dioxide (22-30) mmol/L Anion Gap mmol/L BUN (7-17) mg/dL Creatinine (0.52-1.04) mg/dL Est GFR (CKD-EPI)AfAm (>60 ml/min/1.73 sqM) Est GFR (CKD-EPI)NonAf (>60 ml/min/1.73 sqM) Glucose (74-99) mg/dL Plasma Lactic Acid Lalit 1.7 (0.7-2.0) mmol/L Calcium (8.4-10.2) mg/dL Total Bilirubin (0.2-1.3) mg/dL AST (14-36) U/L ALT (4-34) U/L Alkaline Phosphatase (38-126) U/L Troponin I <0.012 (0.000-0.034) ng/mL Total Protein (6.3-8.2) g/dL Albumin (3.5-5.0) g/dL Urine Color Dark Red Urine Appearance Bloody H (Clear) Urine RBC >182 H (0-5) /hpf Urine WBC >182 H (0-5) /hpf Urine WBC Clumps Many H (None) /hpf Urine Bacteria Many H (None) /hpf - EKG Data -: EKG Interpreted by Me (As well as ED attending physician.) EKG Comments: Atrial fibrillation with rapid ventricular response, rate of 117. No evidence of acute changes when compared to the previous EKG. Normal intervals otherwise. No ST or T-wave changes. - Radiology Data Radiology results: report reviewed, image reviewed Critical Care Time Critical Care Time: Yes (35) Total Critical Care Time: 35 Critical Care Time: Sepsis, multiple diagnoses, reevaluation of patient. Evaluation of the patient's response to treatment. Disposition Clinical Impression: Acute renal injury, Urinary tract infection, Sepsis, Bagley catheter problem Disposition: ADMITTED IP TO THIS [facility] Condition: Fair Is patient prescribed a controlled substance at d/c from ED?: No Time of Disposition: 20:14 Decision to Admit Reason: Admit from EC Decision Time: 20:14
[2021-09-18] MEDS ORDERED: ACETAMINOPHEN TAB 500 MG TAB PO STA (18:22)
[2021-09-18] MEDS: SODIUM CHLORIDE 0.9% 1,000 ML IV SCH ×2 (18:55→20:49)
[2021-09-18 19:19] LABS: Albumin 2.3 g/dL (3.5-5.0); Potassium 4.3 mmol/L (3.5-5.1); Total Bilirubin 0.4 mg/dL (0.2-1.3)
[2021-09-18 19:20] LABS: Anisocytosis Slight; HCT 32.3 % (34.0-46.0); HGB 10.1 gm/dL (11.4-16.0); Hypochromasia Moderate; MCH 31.6 pg (25.0-35.0); MCHC 31.4 g/dL (31.0-37.0); MCV 100.8 fL (80.0-100.0); Macrocytosis Moderate; Mean Platelet Volume 7.9; Platelet Count 472 k/uL (150-450); RDW 17.4 % (11.5-15.5); WBC 12.7 k/uL (3.8-10.6)
[2021-09-18 19:26] LABS: INR 1.2 (<1.2); Prothrombin Time 12.3 sec (9.0-12.0)
[2021-09-18 19:34] LABS: Band Neutrophils % 9 %; Eosinophils # (M) 0.13 k/uL (0-0.7); Lymphocytes # (M) 4.45 k/uL (1.0-4.8); Metamyelocytes # (M) 0.25 k/uL (0); Metamyelocytes % 2 %; Monocytes # (M) 1.65 k/uL (0-1.0); Neutrophils % (M) 40 %; Nucleated Red Blood Cells 0 /100 WBC (0-0); Polychromasia Present; Total Cells Counted 100
[2021-09-18 19:42] LABS: Bacteria,Urine Many /hpf; Color,Urine Dark Red; RBC,Urine >182 /hpf (0-5); WBC,Urine >182 /hpf (0-5)
[2021-09-18 19:43] LABS: Appearance,Urine Bloody (Clear)
[2021-09-18] MEDS ORDERED: SODIUM CHLORIDE 0.9% 500 ML 500 ML IV ONE (20:06)
[2021-09-18] MEDS ORDERED: AMPICILLIN IV SCH (20:15)
[2021-09-18] MEDS ORDERED: SODIUM CHLORIDE 0.9% IV SCH (20:15)
[2021-09-18] MEDS ORDERED: AMPICILLIN 2,000 MG in SODIUM CHLORIDE 0.9% 100 ML IVPB ONE (20:45)
[2021-09-18] MEDS ORDERED: NALOXONE 0.4 MG/ML 1 ML VIAL IV PRN (21:02)
[2021-09-18] MEDS ORDERED: ONDANSETRON 4 MG/2 ML VIAL IVP PRN (21:02)
[2021-09-18] MEDS ORDERED: ACETAMINOPHEN TAB 325 MG TAB PO PRN (21:02)
[2021-09-18] MEDS ORDERED: MAGNESIUM HYDROXIDE 2,400 MG/10 ML CUP PO PRN (21:02)
[2021-09-18] MEDS ORDERED: NITROGLYCERIN SL TABS 0.4 MG TAB SUBLINGUAL PRN (21:06)
[2021-09-18] MEDS ORDERED: ALBUTEROL NEBULIZED 2.5 MG/3 ML INHALATION PRN (21:06)
[2021-09-18] MEDS ORDERED: HEPARIN SODIUM,PORCINE/PF 5,000 UNIT/0.5 ML SYRINGE SQ SCH (21:15)
[2021-09-18] MEDS: HYDROcodone/APAP 5-325MG 1 EACH TAB PO PRN (22:50)
[2021-09-19] MEDS: AMPICILLIN 1,000 MG in SODIUM CHLORIDE 0.9% 50 ML IVPB SCH ×4 (03:54→21:41)
[2021-09-19 07:03] LABS: Anisocytosis Slight; Basophils # (A) 0.1 k/uL (0-0.2); Basophils % (A) 1 %; Eosinophils # (A) 0.1 k/uL (0-0.7); Eosinophils % (A) 1 %; HCT 30.2 % (34.0-46.0); HGB 9.4 gm/dL (11.4-16.0); Hypochromasia Marked; Lymphocytes # (A) 2.1 k/uL (1.0-4.8); Lymphocytes % (A) 22 %; MCH 31.7 pg (25.0-35.0); MCV 102.5 fL (80.0-100.0); Macrocytosis Moderate; Mean Platelet Volume 7.5; Monocytes # (A) 0.8 k/uL (0-1.0); Monocytes % (A) 8 %; Neutrophils # (A) 6.5 k/uL (1.3-7.7); Neutrophils % (A) 67 %; Platelet Count 417 k/uL (150-450); RBC 2.95 m/uL (3.80-5.40); RDW 17.3 % (11.5-15.5); WBC 9.7 k/uL (3.8-10.6)
[2021-09-19 07:26] LABS: Albumin 1.9 g/dL (3.5-5.0); Calcium 8.6 mg/dL (8.4-10.2); Magnesium 1.2 mg/dL (1.6-2.3); Potassium 3.8 mmol/L (3.5-5.1); Total Bilirubin 0.3 mg/dL (0.2-1.3); Total Protein 4.4 g/dL (6.3-8.2)
[2021-09-19] MEDS: PANTOPRAZOLE 40 MG TABLET PO SCH (07:42)
[2021-09-19] MEDS: METOPROLOL TARTRATE 25 MG TAB PO SCH ×2 (07:42→21:41)
[2021-09-19] MEDS: POTASSIUM CHLORIDE ER 10 MEQ TAB.ER.PRT PO SCH (07:42)
[2021-09-19] MEDS: DOCUSATE 100 MG CAP PO SCH (07:42)
[2021-09-19] MEDS: ALBUTEROL NEBULIZED 2.5 MG/3 ML INHALATION SCH ×4 (08:49→20:20)
[2021-09-19] MEDS: SYMBICORT 160-4.5 MCG INHALER INHALATION SCH ×2 (08:49→20:20)
[2021-09-19] MEDS: IPRATROPIUM 0.5 MG/2.5 ML NEBU INHALATION SCH ×4 (08:50→20:20)
[2021-09-19] MEDS ORDERED: FUROSEMIDE 20 MG TAB PO SCH (09:00)
[2021-09-19] MEDS ORDERED: ALPRAZolam 0.25 MG TAB PO PRN (11:53)
[2021-09-19] MEDS ORDERED: LOPERAMIDE 2 MG CAP PO PRN (11:53)
[2021-09-19] MEDS: SODIUM CHLORIDE 0.9% 1,000 ML IV SCH (12:49)
--- NOTE | 2021-09-19 12:54 | P.GSCN ---
History of Present Illness Consult date: 09/19/21 Reason for Consult: Gross hematuria, bladder perforation History of present illness: This is an 86-year-old female with history of a pelvic hematoma, and evidence of extraperitoneal bladder perforation, currently being managed with a Bagley cat heter. She presented to the [facility] with abdominal pain, and minimal drainage from the catheter. Catheter was clogged, and required irrigation and subsequently has been draining without any issues. her Extraperitoneal bladder perforation was initially seen on a CT cystogram on September 03. She has been managed with a Bagley catheter since August 26, of note initial cystogram showed no obvious evidence of bladder perforation, but given her gross hematuria a repeat CT cystogram was performed to rule out bladder perforation.. She has been having intermittent gross hematuria since August 26, but since being discharged from the hospital September 04 has not had any issues with the catheter been clogged. She is currently scheduled for a CT cystogram on September 23 Review of Systems - Constitutional Denies fever, Denies weight loss - Cardiovascular Denies chest pain, Denies shortness of breath - Respiratory Denies cough, Denies 7 - Gastrointestinal Reports abdominal pain - Genitourinary Genitourinary: Reports hematuria - Neurological Denies headaches, Denies syncope Past Medical History Past Medical History: Asthma, Cancer, COPD, Deep Vein Thrombosis (DVT), Hyperlipidemia, Hypertension, Osteoarthritis (OA), Rheumatoid Arthritis (RA), Skin Disorder Additional Past Medical History / Comment(s): Hx. 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 RIGHT KNEE REPLACEMENT X 2., shoulder surgeries , hiatal hernia repair, I&D L inguinal abscess, right wrist surgery Past Anesthesia/Blood Transfusion Reactions: No Reported Reaction Type of Cardiac Device: Permanent Pacemaker Device Placement Date:: October 2012 Past Psychological History: No Psychological Hx Reported Additional Psychological History / Comment(s): . Smoking Status: Former smoker Past Alcohol Use History: None Reported Additional Past Alcohol Use History / Comment(s): Pt states she started smoking in her teens and quit in 1989 Past Drug Use History: None Reported - Past Family History Father Additional Family Medical History / Comment(s): Father pulmonary fibrosis Mother Family Medical History: Cancer Sister(s) Additional Family Medical History / Comment(s): melanoma Medications and Allergies Home Medications Medication Instructions Recorded Confirmed Type Bimatoprost [Lumigan 0.01% Ophth 1 drop BOTH EYES HS@199911/07/13 09/18/21 Hi story Soln] Montelukast [Singulair] 10 mg PO HS@199911/07/13 09/18/21 History allopurinoL [Zyloprim] 100 mg PO BID@08,199907/09/14 09/18/21 History DULoxetine HCL [Cymbalta] 60 mg PO HS@199911/22/18 09/18/21 History Folic Acid 1 mg PO DAILY@79902/10/20 09/18/21 History Multivitamins, Thera [Multivitamin 1 tab PO DAILY@169902/10/20 09/18/21 History (formulary)] Nitroglycerin Sl Tabs [Nitrostat] 0.4 mg SUBLINGUAL Q5M PRN 02/10/20 09/18/21 History Atorvastatin [Lipitor] 20 mg PO DAILY@169908/31/20 09/18/21 History Metoprolol Tartrate [Lopressor] 25 mg PO BID@0800,169908/31/20 09/18/21 History Acyclovir [Zovirax] 400 mg PO BID@799,199908/03/21 09/18/21 History Calcium Carbonate/Vitamin D3 1 cap PO DAILY@169908/03/21 09/18/21 History [Calcium 600 mg-D3 10 Mcg (400 Iu)] Docusate [Colace] 100 mg PO DAILY@79908/03/21 09/18/21 History Psyllium Husk 100% [Metamucil 6 gm PO DAILY@79908/03/21 09/18/21 History Packet] ondansetron HCL [Zofran] 8 mg PO Q6H PRN 08/03/21 09/18/21 History Acetaminophen Tab [Tylenol] 650 mg PO Q6HR PRN tab 08/19/21 09/18/21 Rx Albuterol Inhaler [Ventolin Hfa 2 puff INHALATION RT-Q2H PRN gm 08/19/21 09/18/21 Rx Inhaler] guaiFENesin-DM 100-10MG/5ML 10 ml PO Q6HR PRN ml 08/19/21 09/18/21 Rx [Robitussin DM] Ascorbic Acid [Vitamin C] 1,000 mg PO DAILY@1700 08/25/21 09/18/21 History Budesonide-Formot 160-4.5 Mcg 2 puff INHALATION RT-BID@0800,1700 08/25/21 09/18/21 History [Symbicort 160-4.5 Mcg Inhaler] Cholecalciferol [Vitamin D3 (125 125 mcg PO DAILY@169908/25/21 09/18/21 History Mcg = 5000 Iu)] Furosemide [Lasix] 60 mg PO DAILY@0800 08/25/21 09/18/21 History Gabapentin [Neurontin] 400 mg PO BID@0800,2100 08/25/21 09/18/21 History Na Phos,M-B/Na Phos,Di-Ba [Fleet 133 ml RECTAL DAILY PRN 08/25/21 09/18/21 History Adult] Tiotropium 2.5 Mcg/Puff [Spiriva 2 puff INHALATION RT-DAILY@0800 08/25/21 09/18/21 History Respimat 2.5 Mcg] Zinc Gluconate [Zinc] 50 mg PO DAILY@1700 08/25/21 09/18/21 History bisacodyL [Dulcolax] 10 mg RECTAL DAILY PRN 08/25/21 09/18/21 History ALPRAZolam [Xanax] 0.25 mg PO BID PRN 09/18/21 09/18/21 History Albuterol Sulfate [Ventolin HFA] 2 puff INHALATION 09/18/21 09/18/21 History RT-QID@,,, HYDROcodone/APAP 5-325MG [[place] 1 tab PO Q8HR PRN 09/18/21 09/18/21 History 5-325] Loperamide [Imodium] 2 mg PO QID PRN 09/18/21 09/18/21 History Magnesium Hydroxide [Milk of 7,200 mg PO DAILY PRN 09/18/21 09/18/21 History Magnesia Concentrate] Omeprazole 20 mg PO BID@0800,1700 09/18/21 09/18/21 History Potassium Chloride ER [K-Dur 20] 20 meq PO DAILY@1700 09/18/21 09/18/21 History Allergies Allergy/AdvReac Type Severity Reaction Status Date / Time LUNA Inhibitors AdvReac Cough Verified 09/18/21 21:25 IV STEROIDS Allergy Itching Uncoded 08/25/21 08:36 tape Allergy Unknown Uncoded 08/25/21 08:36 Surgical - Exam Vital Signs Temp Pulse Resp BP Pulse Ox 99.2 F 106 H 19 99/55 98 09/18/21 17:32 09/18/21 17:32 09/18/21 17:32 09/18/21 17:32 09/18/21 17:32 - General no distress, no pain - Eyes normal ocular movement, no pale - ENT normal nares, normal mucosa - Respiratory normal expansion, normal respiratory effort - Abdomen Abdomen: soft, tender (Along the left lower quadrant), no distended - Psychiatric oriented to time, oriented to person, oriented to place Results - Labs 09/19/21 06:36 09/19/21 06:36 Abnormal Lab Results - Last 24 Hours (Table) 09/18/21 09/18/21 09/18/21 Range/Units 19:05 19:05 19:05 WBC 12.7 H (3.8-10.6) k/uL RBC 3.20 L (3.80-5.40) m/uL Hgb 10.1 L (11.4-16.0) gm/dL Hct 32.3 L (34.0-46.0) % MCV 100.8 H (80.0-100.0) fL RDW 17.4 H (11.5-15.5) % Plt Count 472 H (150-450) k/uL Monocytes # (Manual) 1.65 H (0-1.0) k/uL Metamyelocytes # (Man) 0.25 H (0) k/uL PT 12.3 H (9.0-12.0) sec INR 1.2 H (<1.2) Sodium 128 L (137-145) mmol/L Chloride 96 L (98-107) mmol/L BUN 30 H (7-17) mg/dL Creatinine 1.40 H (0.52-1.04) mg/dL Magnesium (1.6-2.3) mg/dL Alkaline Phosphatase 159 H (38-126) U/L Total Protein 5.0 L (6.3-8.2) g/dL Albumin 2.3 L (3.5-5.0) g/dL Urine Appearance (Clear) Urine RBC (0-5) /hpf Urine WBC (0-5) /hpf Urine WBC Clumps (None) /hpf Urine Bacteria (None) /hpf 09/18/21 09/19/21 09/19/21 Range/Units 19:31 06:36 06:36 WBC (3.8-10.6) k/uL RBC 2.95 L (3.80-5.40) m/uL Hgb 9.4 L (11.4-16.0) gm/dL Hct 30.2 L (34.0-46.0) % MCV 102.5 H (80.0-100.0) fL RDW 17.3 H (11.5-15.5) % Plt Count (150-450) k/uL Monocytes # (Manual) (0-1.0) k/uL Metamyelocytes # (Man) (0) k/uL PT (9.0-12.0) sec INR (<1.2) Sodium 132 L (137-145) mmol/L Chloride (98-107) mmol/L BUN 27 H (7-17) mg/dL Creatinine 1.19 H (0.52-1.04) mg/dL Magnesium 1.2 L (1.6-2.3) mg/dL Alkaline Phosphatase 132 H (38-126) U/L Total Protein 4.4 L (6.3-8.2) g/dL Albumin 1.9 L (3.5-5.0) g/dL Urine Appearance Bloody H (Clear) Urine RBC >182 H (0-5) /hpf Urine WBC >182 H (0-5) /hpf Urine WBC Clumps Many H (None) /hpf Urine Bacteria Many H (None) /hpf Microbiology - Last 24 Hours (Table) 09/18/21 19:31 Urine Culture - Preliminary Urine,Voided Diabetes panel 09/18/21 09/19/21 Range/Units 19:05 06:36 Sodium 128 L 132 L (137-145) mmol/L Potassium 4.3 3.8 (3.5-5.1) mmol/L Chloride 96 L 101 (98-107) mmol/L Carbon Dioxide 26 26 (22-30) mmol/L BUN 30 H 27 H (7-17) mg/dL Creatinine 1.40 H 1.19 H (0.52-1.04) mg/dL Glucose 98 87 (74-99) mg/dL Calcium 9.0 8.6 (8.4-10.2) mg/dL AST 30 24 (14-36) U/L ALT 16 14 (4-34) U/L Alkaline Phosphatase 159 H 132 H (38-126) U/L Total Protein 5.0 L 4.4 L (6.3-8.2) g/dL Albumin 2.3 L 1.9 L (3.5-5.0) g/dL Calcium panel 09/18/21 09/19/21 Range/Units 19:05 06:36 Calcium 9.0 8.6 (8.4-10.2) mg/dL Albumin 2.3 L 1.9 L (3.5-5.0) g/dL Pituitary panel 09/18/21 09/19/21 Range/Units 19:05 06:36 Sodium 128 L 132 L (137-145) mmol/L Potassium 4.3 3.8 (3.5-5.1) mmol/L Chloride 96 L 101 (98-107) mmol/L Carbon Dioxide 26 26 (22-30) mmol/L BUN 30 H 27 H (7-17) mg/dL Creatinine 1.40 H 1.19 H (0.52-1.04) mg/dL Glucose 98 87 (74-99) mg/dL Calcium 9.0 8.6 (8.4-10.2) mg/dL Adrenal panel 09/18/21 09/19/21 Range/Units 19:05 06:36 Sodium 128 L 132 L (137-145) mmol/L Potassium 4.3 3.8 (3.5-5.1) mmol/L Chloride 96 L 101 (98-107) mmol/L Carbon Dioxide 26 26 (22-30) mmol/L BUN 30 H 27 H (7-17) mg/dL Creatinine 1.40 H 1.19 H (0.52-1.04) mg/dL Glucose 98 87 (74-99) mg/dL Calcium 9.0 8.6 (8.4-10.2) mg/dL Total Bilirubin 0.4 0.3 (0.2-1.3) mg/dL AST 30 24 (14-36) U/L ALT 16 14 (4-34) U/L Alkaline Phosphatase 159 H 132 H (38-126) U/L Total Protein 5.0 L 4.4 L (6.3-8.2) g/dL Albumin 2.3 L 1.9 L (3.5-5.0) g/dL Assessment and Plan Assessment: 86-year-old female with history of extra peritoneal bladder perforation currently being managed with a Bagley catheter. Admitted to the hospital with gross hematuria, and catheter clogging, requiring irrigation. A Bagley catheter has been draining now without any issues. She is scheduled for a CT cystogram on September 23, discussed that we'll keep that appointment . Discussed with her if does have persistent leak, and catheter continues to clogg then the next step would be a to conisder bladder repair. But discussed given her age and her hematoma to high risk surgery, this point she is refusing any surgical intervention for her bladder perforation at this point. -Keep appointment for CT cystogram on September 23, advised to keep follow-up with Dr. Vale on the -Irrigate Bagley when necessary
--- NOTE | 2021-09-19 13:21 | P.HPIM ---
History of Present Illness H&P Date: 09/19/21 Chief Complaint: Fever or chills This is a pleasant 86-year-old patient follows with Dr. Rayo at [facility]. Patient was discharged hospital 2 weeks ago. Patient denies severe bleeding and coagulopathy secondary to anticoagulation. Patient also had abdominal wall and pelvic hematoma and a urinary bladder hematoma. Computed tomography scan showed contrast extravasation suspicion for perforation of the bladder. Per urology patient is to give the Bagley catheter in. Repeat CAT scan in 2 weeks. Blood loss anemia. Also UTI from enterococcus group D. With sepsis. History of DVT and atrial fibrillation. Multiple myeloma. Chronic diastolic CHF. [facility] is able to stand with support. Decreased appetite. Having bowel movements. Has a chronic Bagley since last admission. Presented with fever or chills tired rundown. Patient was reported to have decreased urine output over the last 2 days. Urine became rather cloudy and follow ordered. UA was rather infected appearing. Started on IV Unasyn. Urology consulted. Review of systems: GEN.: Tired, decreased appetite, fever and chills EYES: None HEENT: None NECK: None RESPIRATORY: None CARDIOVASCULAR: None GASTROINTESTINAL: Bagley catheter GENITOURINARY: None MUSCULOSKELETAL: Joint pains LYMPHATICS: None HEMATOLOGICAL: None PSYCHIATRY: None NEUROLOGICAL: None Past medical history to include: COPD, DVT, hypertension, hyperlipidemia, osteoarthritis, rheumatoid arthritis, gout, DVT in the left upper arm, lung,, bradycardia with pacemaker, multiple myeloma Social history: Patient smoked for about 40 years. No alcohol. Currently at [facility]. Family history: Pelvic fibrosis. Cancer Physical examination: VITAL SIGNS: [97.6, 97, 16, 95/59, 92% room air] GENERAL: BMI 34.7, reclining in bed awake a bit tired. EYES: [Pupils equal. Conjunctiva marah]l. HEENT: [External appearance of nose and ears normal, oral cavity grossly normal]. NECK: [JVD not raised; masses not palpable]. HEART: [First and second heart sounds are normal; no edema]. LUNGS:[ Respiratory rate normal; decreased breath sounds. ABDOMEN: [Soft, nontender, liver spleen not palpable, no masses palpable]. PSYCH: [Alert and oriented x3; mood and affect marah]l. MUSCULOSKELETAL:No Clubbing/cyanosis;muscles-grossly intact. Evidence of OA NEUROLOGICAL: [Cranial nerves grossly intact; no facial asymmetry, power and sensation grossly intact]. LYMPHATICS: [No lymph nodes palpable in the axilla and neck]. Sacral decubitus possibly stage II INVESTIGATIONS, reviewed in the clinical context: White count 12.70 globin 10.1 platelets 472 sodium 128 potassium 4.3 BUN 30 creatinine 1.4 UA positive for WBC, bacteria EKG tracing personally reviewed by me-atrial fibrillation with a rate of 117. Right bundle branch block pattern. Previous labs: BUN 14 creatinine 0.69 on 09/04/2021 Assessment and plan: -Acute UTI with cystitis, secondary to Bagley catheter in a patient with recent bladder infection/perforation with hemorrhage. IV Unasyn. Urology consulted. -Obesity BMI 34.7 Weight loss measures -Chronic medical debility Patient just about able to stand with support. -COPD in a previous smoker Symbicort 167 4.52 puffs twice a day. Spiriva 2 puffs daily. -Hyperlipidemia Lipitor 20 mg a day -Depression Cymbalta 60 mg daily at bedtime -Acute kidney injury, possibly prerenal/ATN. Note creatinine is gone up from a baseline. Hold Lasix. IV fluids. -History of left upper arm DVT. Anticoagulation held because of repeated bleeding. -Rheumatoid arthritis -Essential hypertension Lopressor 25 mg twice a day -Persistent atrial fibrillation Lopressor 25 mg twice a day. No antibiotic medication because of prior history of severe bleeding. -Chronic gout Allopurinol -Macrocytic anemia. Recent significant hematoma and hematuria. Check B12. -DO NOT RESUSCITATE Consultation to urology. IV Unasyn. Home medications reviewed. Care was discussed with the patient and family at the bedside. Past Medical History Past Medical History: Asthma, Cancer, COPD, Deep Vein Thrombosis (DVT), Hyperlipidemia, Hypertension, Osteoarthritis (OA), Rheumatoid Arthritis (RA), Skin Disorder Additional Past Medical History / Comment(s): Hx. 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 RIGHT KNEE REPLACEMENT X 2., shoulder surgeries , hiatal hernia repair, I&D L inguinal abscess, right wrist surgery Past Anesthesia/Blood Transfusion Reactions: No Reported Reaction Type of Cardiac Device: Permanent Pacemaker Device Placement Date:: October 2012 Past Psychological History: No Psychological Hx Reported Additional Psychological History / Comment(s): . Smoking Status: Former smoker Past Alcohol Use History: None Reported Additional Past Alcohol Use History / Comment(s): Pt states she started smoking in her teens and quit in 1989 Past Drug Use History: None Reported - Past Family History Father Additional Family Medical History / Comment(s): Father pulmonary fibrosis Mother Family Medical History: Cancer Sister(s) Additional Family Medical History / Comment(s): melanoma Medications and Allergies Home Medications Medication Instructions Recorded Confirmed Type Bimatoprost [Lumigan 0.01% Ophth 1 drop BOTH EYES HS@199911/07/13 09/18/21 History Soln] Montelukast [Singulair] 10 mg PO HS@199911/07/13 09/18/21 History allopurinoL [Zyloprim] 100 mg PO BID@799,199907/09/14 09/18/21 History DULoxetine HCL [Cymbalta] 60 mg PO HS@199911/22/18 09/18/21 History Folic Acid 1 mg PO DAILY@0802/10/20 09/18/21 History Multivitamins, Thera [Multivitamin 1 tab PO DAILY@169902/10/20 09/18/21 History (formulary)] Nitroglycerin Sl Tabs [Nitrostat] 0.4 mg SUBLINGUAL Q5M PRN 02/10/20 09/18/21 History Atorvastatin [Lipitor] 20 mg PO DAILY@169908/31/20 09/18/21 History Metoprolol Tartrate [Lopressor] 25 mg PO BID@08,169908/31/20 09/18/21 History Acyclovir [Zovirax] 400 mg PO BID@799,199908/03/21 09/18/21 History Calcium Carbonate/Vitamin D3 1 cap PO DAILY@169908/03/21 09/18/21 History [Calcium 600 mg-D3 10 Mcg (400 Iu)] Docusate [Colace] 100 mg PO DAILY@00 08/03/21 09/18/21 History Psyllium Husk 100% [Metamucil 6 gm PO DAILY@0800 08/03/21 09/18/21 History Packet] ondansetron HCL [Zofran] 8 mg PO Q6H PRN 08/03/21 09/18/21 History Acetaminophen Tab [Tylenol] 650 mg PO Q6HR PRN tab 08/19/21 09/18/21 Rx Albuterol Inhaler [Ventolin Hfa 2 puff INHALATION RT-Q2H PRN gm 08/19/21 09/18/21 Rx Inhaler] guaiFENesin-DM 100-10MG/5ML 10 ml PO Q6HR PRN ml 08/19/21 09/18/21 Rx [Robitussin DM] Ascorbic Acid [Vitamin C] 1,000 mg PO DAILY@1700 08/25/21 09/18/21 History Budesonide-Formot 160-4.5 Mcg 2 puff INHALATION RT-BID@0800,1700 08/25/21 09/18/21 History [Symbicort 160-4.5 Mcg Inhaler] Cholecalciferol [Vitamin D3 (125 125 mcg PO DAILY@1700 08/25/21 09/18/21 History Mcg = 5000 Iu)] Furosemide [Lasix] 60 mg PO DAILY@0800 08/25/21 09/18/21 History Gabapentin [Neurontin] 400 mg PO BID@0800,2100 08/25/21 09/18/21 History Na Phos,M-B/Na Phos,Di-Ba [Fleet 133 ml RECTAL DAILY PRN 08/25/21 09/18/21 History Adult] Tiotropium 2.5 Mcg/Puff [Spiriva 2 puff INHALATION RT-DAILY@0800 08/25/21 09/18/21 History Respimat 2.5 Mcg] Zinc Gluconate [Zinc] 50 mg PO DAILY@1700 08/25/21 09/18/21 History bisacodyL [Dulcolax] 10 mg RECTAL DAILY PRN 08/25/21 09/18/21 History ALPRAZolam [Xanax] 0.25 mg PO BID PRN 09/18/21 09/18/21 History Albuterol Sulfate [Ventolin HFA] 2 puff INHALATION 09/18/21 09/18/21 History RT-QID@08,,, HYDROcodone/APAP 5-325MG [[place] 1 tab PO Q8HR PRN 09/18/21 09/18/21 History 5-325] Loperamide [Imodium] 2 mg PO QID PRN 09/18/21 09/18/21 History Magnesium Hydroxide [Milk of 7,200 mg PO DAILY PRN 09/18/21 09/18/21 History Magnesia Concentrate] Omeprazole 20 mg PO BID@0800,1700 09/18/21 09/18/21 History Potassium Chloride ER [K-Dur 20] 20 meq PO DAILY@1700 09/18/21 09/18/21 History Allergies Allergy/AdvReac Type Severity Reaction Status Date / Time LUNA Inhibitors AdvReac Cough Verified 09/18/21 21:25 IV STEROIDS Allergy Itching Uncoded 08/25/21 08:36 tape Allergy Unknown Uncoded 08/25/21 08:36 Physical Exam Vitals: Vital Signs Temp Pulse Pulse Resp BP BP Pulse Ox 09/19/21 08:59 78 16 09/19/21 08:50 78 16 98 09/19/21 07:48 98.6 F 59 L 18 102/65 95 09/19/21 01:56 97.6 F 89 16 90/56 97 09/18/21 22:00 107 H 17 100/66 97 09/18/21 21:27 97.6 F 97 16 95/59 92 L 09/18/21 20:00 106/64 97 09/18/21 19:00 108 H 99/50 97 09/18/21 18:22 113 H 101/62 97 09/18/21 17:32 99.2 F 106 H 19 99/55 98 Intake and Output 09/18/21 09/19/21 09/19/21 22:59 06:59 14:59 Intake Total 1190 Output Total 700 Balance 490 Intake: Intake, IV Titration 1010 Amount Ampicillin 2,000 mg In 100 Sodium Chloride 0.9% 100 ml @ 200 mls/hr IVPB ONCE ONE Rx#:[id number] Sodium Chloride 0.9% 500 910 ml 500 ml @ 999 mls/hr IV .Q31M ONE Rx#:[id number] Oral 180 Output: Urine 700 Other: Voiding Method Indwelling Catheter Weight 97.522 kg Results CBC & Chem 7: 09/19/21 06:36 09/19/21 06:36 Labs: Abnormal Lab Results - Last 24 Hours (Table) 09/18/21 09/18/21 09/18/21 Range/Units 19:05 19:05 19:05 WBC 12.7 H (3.8-10.6) k/uL RBC 3.20 L (3.80-5.40) m/uL Hgb 10.1 L (11.4-16.0) gm/dL Hct 32.3 L (34.0-46.0) % MCV 100.8 H (80.0-100.0) fL RDW 17.4 H (11.5-15.5) % Plt Count 472 H (150-450) k/uL Monocytes # (Manual) 1.65 H (0-1.0) k/uL Metamyelocytes # (Man) 0.25 H (0) k/uL PT 12.3 H (9.0-12.0) sec INR 1.2 H (<1.2) Sodium 128 L (137-145) mmol/L Chloride 96 L (98-107) mmol/L BUN 30 H (7-17) mg/dL Creatinine 1.40 H (0.52-1.04) mg/dL Magnesium (1.6-2.3) mg/dL Alkaline Phosphatase 159 H (38-126) U/L Total Protein 5.0 L (6.3-8.2) g/dL Albumin 2.3 L (3.5-5.0) g/dL Urine Appearance (Clear) Urine RBC (0-5) /hpf Urine WBC (0-5) /hpf Urine WBC Clumps (None) /hpf Urine Bacteria (None) /hpf 09/18/21 09/19/21 09/19/21 Range/Units 19:31 06:36 06:36 WBC (3.8-10.6) k/uL RBC 2.95 L (3.80-5.40) m/uL Hgb 9.4 L (11.4-16.0) gm/dL Hct 30.2 L (34.0-46.0) % MCV 102.5 H (80.0-100.0) fL RDW 17.3 H (11.5-15.5) % Plt Count (150-450) k/uL Monocytes # (Manual) (0-1.0) k/uL Metamyelocytes # (Man) (0) k/uL PT (9.0-12.0) sec INR (<1.2) Sodium 132 L (137-145) mmol/L Chloride (98-107) mmol/L BUN 27 H (7-17) mg/dL Creatinine 1.19 H (0.52-1.04) mg/dL Magnesium 1.2 L (1.6-2.3) mg/dL Alkaline Phosphatase 132 H (38-126) U/L Total Protein 4.4 L (6.3-8.2) g/dL Albumin 1.9 L (3.5-5.0) g/dL Urine Appearance Bloody H (Clear) Urine RBC >182 H (0-5) /hpf Urine WBC >182 H (0-5) /hpf Urine WBC Clumps Many H (None) /hpf Urine Bacteria Many H (None) /hpf Microbiology - Last 24 Hours (Table) 09/18/21 19:31 Urine Culture - Preliminary Urine,Voided Thrombosis Risk Factor Assmnt - Choose All That Apply Any of the Below Risk Factors Present?: No Each Risk Factor Represents 3 Points: Age 75 years or older Other congenital or acquired thrombophilia - If yes, enter type in comment: No Thrombosis Risk Factor Assessment Total Risk Factor Score: 3 Thrombosis Risk Factor Assessment Level: Moderate Risk
[2021-09-19] MEDS: SODIUM CHLORIDE 0.45% 1,000 ML IV SCH (14:46)
--- NOTE | 2021-09-19 14:47 | XR ---
EXAMINATION TYPE: XR chest 1V DATE OF EXAM: 09/19/2021 COMPARISON: 08/12/2021 HISTORY: Sepsis TECHNIQUE: Single view FINDINGS: Heart is normal. There is some coarse interstitial density at the lung bases. There is left axillary pacemaker. There are no hilar masses. Mediastinum is normal. IMPRESSION: There are some interstitial fibrotic changes and subsegmental atelectasis at the lung bas es similar to the old exam. No heart failure.
[2021-09-19] MEDS ORDERED: NON FORMULARY DRUG (Omeprazole [Omeprazole] 20 MG Capsule.Dr) PO SCH (17:00)
[2021-09-19] MEDS: allopurinoL 100 MG TAB PO SCH (19:34)
[2021-09-19] MEDS: ACYCLOVIR 200 MG CAP PO SCH (19:34)
[2021-09-19] MEDS ORDERED: GABAPENTIN 400 MG CAP PO SCH (21:00)
[2021-09-19] MEDS: DULoxetine HCL 60 MG CAPSULE.DR PO SCH (21:41)
[2021-09-19] MEDS: LATANOPROST 0.005% OPHTH DROPS 2.5 ML BTL BOTH EYES SCH (21:41)
[2021-09-19] MEDS: MONTELUKAST 10 MG TAB PO SCH (21:41)
[2021-09-20] MEDS ORDERED: MAGNESIUM OXIDE 400 MG TAB PO STA (02:33)
[2021-09-20] MEDS: AMPICILLIN 1,000 MG in SODIUM CHLORIDE 0.9% 50 ML IVPB SCH ×4 (02:53→21:37)
[2021-09-20] MEDS: SODIUM CHLORIDE 0.45% 1,000 ML IV SCH ×2 (03:17→15:52)
[2021-09-20 06:02] LABS: African American GFR (CKD) 82 (>60 ml/min/1.73 sqM); Anion Gap 5 mmol/L; Blood Urea Nitrogen 21 mg/dL (7-17); Calcium 8.5 mg/dL (8.4-10.2); Carbon Dioxide 23 mmol/L (22-30); Chloride 103 mmol/L (98-107); Glucose 83 mg/dL (74-99); Non-African American GFR(CKD) 71 (>60 ml/min/1.73 sqM); Potassium 3.8 mmol/L (3.5-5.1); Sodium 131 mmol/L (137-145)
[2021-09-20] MEDS: IPRATROPIUM 0.5 MG/2.5 ML NEBU INHALATION SCH ×4 (07:24→19:50)
[2021-09-20] MEDS: ALBUTEROL NEBULIZED 2.5 MG/3 ML INHALATION SCH ×4 (07:24→19:50)
[2021-09-20] MEDS: SYMBICORT 160-4.5 MCG INHALER INHALATION SCH ×2 (07:24→19:50)
[2021-09-20] MEDS: ACYCLOVIR 200 MG CAP PO SCH ×2 (09:10→19:16)
[2021-09-20] MEDS: allopurinoL 100 MG TAB PO SCH ×2 (09:10→19:15)
[2021-09-20] MEDS: DOCUSATE 100 MG CAP PO SCH ×2 (09:10→09:11)
[2021-09-20] MEDS: METOPROLOL TARTRATE 25 MG TAB PO SCH ×2 (09:10→21:23)
[2021-09-20] MEDS: PANTOPRAZOLE 40 MG TABLET PO SCH (09:10)
[2021-09-20] MEDS: POTASSIUM CHLORIDE ER 10 MEQ TAB.ER.PRT PO SCH (09:10)
[2021-09-20] MEDS: MAGNESIUM OXIDE 400 MG TAB PO SCH (09:11)
--- NOTE | 2021-09-20 11:51 | P.PN ---
Subjective No acute overnight events, urine is clearing up this morning. No issues with catheter being clogged Objective - Vital Signs Vital signs: Vital Signs Temp 97.9 F 09/20/21 07:52 Pulse 109 H 09/20/21 07:52 Resp 22 09/20/21 07:52 BP 96/58 09/20/21 07:52 Pulse Ox 95 09/20/21 07:52 FiO2 Intake & Output 09/19/21 09/20/21 09/20/21 18:59 06:59 18:59 Output Total 1620 1000 Balance -1620 -1000 Output: Urine 1620 1000 Other: Voiding Method Indwelling Catheter Indwelling Catheter - Constitutional General appearance: Present: no acute distress - Gastrointestinal General gastrointestinal: Present: soft, tenderness (Left lower quadrant). Absent: distended - Genitourinary Genitourinary Comment(s): Urine is blood-tinged - Labs CBC & Chem 7: 09/19/21 06:36 09/20/21 05:25 Labs: Abnormal Lab Results - Last 24 Hours (Table) 09/20/21 Range/Units 05:25 Sodium 131 L (137-145) mmol/L BUN 21 H (7-17) mg/dL Microbiology - Last 24 Hours (Table) 09/18/21 19:05 Blood Culture - Preliminary Blood No Growth after 24 hours 09/18/21 19:05 Blood Culture - Preliminary Blood No Growth after 24 hours Assessment and Plan Assessment: 86-year-old female with history of extra peritoneal bladder perforation currently being managed with a Bagley catheter. Admitted to the hospital with gross hematuria, and catheter clogging, requiring irrigation. A Bagley catheter has been draining now without any issues. She is scheduled for a CT cystogram on September 23, discussed that we'll keep that appointment . Discussed with her if does have persistent leak, and catheter continues to clogg then the next step would be a to conisder bladder repair. But discussed given her age and her hematoma to high risk surgery, this point she is refusing any surgical intervention for her bladder perforation at this point. -Keep appointment for CT cystogram on September 23, advised to keep follow-up with Dr. Vale on the -Irrigate Bagley when necessary, okay for discharge from urology standpoint
--- NOTE | 2021-09-20 16:29 | P.PN ---
Progress Note - Text Progress Note Date: 09/20/21 Chief Complaint: Fever or chills This is a pleasant 86-year-old patient follows with Dr. Rayo at [facility]. Patient was discharged hospital 2 weeks ago. Patient denies severe bleeding and coagulopathy secondary to anticoagulation. Patient also had abdominal wall and pelvic hematoma and a urinary bladder hematoma. Computed tomography scan showed contrast extravasation suspicion for perforation of the bladder. Per urology patient is to give the Bagley catheter in. Repeat CAT scan in 2 weeks. Blood loss anemia. Also UTI from enterococcus group D. With sepsis. History of DVT and atrial fibrillation. Multiple myeloma. Chronic diastolic CHF. At the [facility] patient is able to stand with support. Decreased appetite. Having bowel movements. Has a chronic Bagley since last admission. Presented with fever or chills tired rundown. Patient was reported to have decreased urine output over the last 2 days. Urine became rather cloudy and follow ordered. UA was rather infected appearing. Started on IV Unasyn. Urology consulted. September 20: Bagley catheter is functioning. Bagley catheter was apparently clogged up. Patient scheduled for CT cystogram on September 23-per Dr. johnson to keep the appointment. Bladder repair would be the next step if recurrent clogging. Patient has been declining any surgical intervention at this point. Return to [facility] tomorrow. Active Medications Acetaminophen (Acetaminophen Tab 325 Mg Tab) 650 mg PO Q6HR PRN PRN Reason: Mild Pain or Fever > 100.5 Hydrocodone Bitart/Acetaminophen (Hydrocodone/Apap 5-325mg 1 Each Tab) 1 each PO Q12H PRN PRN Reason: Moderate Pain Last Admin: 09/18/21 22:50 Dose: 1 each Acyclovir (Acyclovir 200 Mg Cap) 400 mg PO BID@ [facility] Last Admin: 09/20/21 09:10 Dose: 400 mg Albuterol Sulfate (Albuterol Nebulized 2.5 Mg/3 Ml) 2.5 mg INHALATION RT-Q2H PRN PRN Reason: Shortness Of Breath Or Wheezing Albuterol Sulfate (Albuterol Nebulized 2.5 Mg/3 Ml) 2.5 mg INHALATION RT-QID [facility] Last Admin: 09/20/21 10:37 Dose: Not Given Allopurinol (Allopurinol 100 Mg Tab) 100 mg PO BID@ [facility] Last Admin: 09/20/21 09:10 Dose: 100 mg Alprazolam (Alprazolam 0.25 Mg Tab) 0.25 mg PO BID PRN PRN Reason: Anxiety Budesonide/Formoterol Fumarate (Symbicort 160-4.5 Mcg Inhaler) 2 puff INHALATION RT-BID [facility] Last Admin: 09/20/21 07:24 Dose: Not Given Docusate Sodium (Docusate 100 Mg Cap) 100 mg PO DAILY@0900 [facility] Last Admin: 09/20/21 09:11 Dose: Not Given Duloxetine HCl (Duloxetine Hcl 60 Mg Capsule.Dr) 60 mg PO [facility] Last Admin: 09/19/21 21:41 Dose: 60 mg Gabapentin (Gabapentin 400 Mg Cap) 400 mg PO [facility] Ampicillin Sodium 1,000 mg/ (Sodium Chloride) 50 mls @ 100 mls/hr IVPB Q6H [facility] Last Admin: 09/20/21 14:08 Dose: 100 mls/hr Sodium Chloride (Saline 0.45%) 1,000 mls @ 75 mls/hr IV .[id number] [facility] Last Admin: 09/20/21 15:52 Dose: 75 mls/hr Ipratropium Scott (Ipratropium 0.5 Mg/2.5 Ml Nebu) 0.5 mg INHALATION RT-QID [facility] Last Admin: 09/20/21 10:37 Dose: Not Given Latanoprost (Latanoprost 0.005% Ophth Drops 2.5 Ml Btl) 1 drops BOTH EYES [facility] Last Admin: 09/19/21 21:41 Dose: 1 drops Loperamide HCl (Loperamide 2 Mg Cap) 2 mg PO QID PRN PRN Reason: LOOSE STOOLS Magnesium Hydroxide (Magnesium Hydroxide 2,400 Mg/10 Ml Cup) 2,400 mg PO DAILY PRN PRN Reason: Constipation Magnesium Oxide (Magnesium Oxide 400 Mg Tab) 200 mg PO DAILY [facility] Last Admin: 09/20/21 09:11 Dose: 200 mg Metoprolol Tartrate (Metoprolol Tartrate 25 Mg Tab) 25 mg PO BID [facility] Last Admin: 09/20/21 09:10 Dose: 25 mg Montelukast Sodium (Montelukast 10 Mg Tab) 10 mg PO [facility] Last Admin: 09/19/21 21:41 Dose: 10 mg Naloxone HCl (Naloxone 0.4 Mg/Ml 1 Ml Vial) 0.2 mg IV Q2M PRN PRN Reason: Opioid Reversal Nitroglycerin (Nitroglycerin Sl Tabs 0.4 Mg Tab) 0.4 mg SUBLINGUAL Q5M PRN PRN Reason: Chest Pain Ondansetron HCl (Ondansetron 4 Mg/2 Ml Vial) 4 mg IVP Q8HR PRN PRN Reason: Nausea And Vomiting Pantoprazole Sodium (Pantoprazole 40 Mg Tablet) 40 mg PO AC-BRKFST [facility] Last Admin: 09/20/21 09:10 Dose: 40 mg Potassium Chloride (Potassium Chloride Er 10 Meq Tab.Er.Prt) 10 meq PO DAILY [facility] Last Admin: 09/20/21 09:10 Dose: 10 meq Past medical history to include: COPD, DVT, hypertension, hyperlipidemia, osteoarthritis, rheumatoid arthritis, gout, DVT in the left upper arm, lung,, bradycardia with pacemaker, multiple myeloma Social history: Patient smoked for about 40 years. No alcohol. Currently at [facility]. Family history: Pelvic fibrosis. Cancer Physical examination: VITAL SIGNS: 98.3, 74, 19, 96/58, 95% on room air GENERAL:, reclining in bed awake a bit tired. EYES: Pupils equal. Conjunctiva normal. HEENT: External appearance of nose and ears normal, oral cavity grossly normal. NECK: JVD not raised; masses not palpable. HEART: First and second heart sounds are normal; no edema. LUNGS:[ Respiratory rate normal; decreased breath sounds. ABDOMEN: Soft, nontender, liver spleen not palpable, no masses palpable. Bagley catheter with dirty-appearing urine PSYCH: Alert and oriented x3; mood and affect normal. MUSCULOSKELETAL:No Clubbing/cyanosis;muscles-grossly intact. Evidence of OA Sacral decubitus possibly stage II INVESTIGATIONS, reviewed in the clinical context: September 20: Potassium 3.8 creatinine 0.77 sodium 131 White count 12.70 globin 10.1 platelets 472 sodium 128 potassium 4.3 BUN 30 creatinine 1.4 UA positive for WBC, bacteria EKG tracing personally reviewed by me-atrial fibrillation with a rate of 117. Right bundle branch block pattern. Previous labs: BUN 14 creatinine 0.69 on 09/04/2021 Assessment and plan: -Acute UTI with cystitis, secondary to Bagley catheter in a patient with recent bladder infection/perforation with hemorrhage. IV Unasyn. Urine culture pending. -Recent bladder perforation with bleeding. Patient due for a CT cystogram on September 23. At this point patient not keen for any surgical intervention/including bladder repair. Had Bagley catheter blockage on this admission now cleared -Obesity BMI 34.7 Weight loss measures -Chronic medical debility Patient just about able to stand with support. -COPD in a previous smoker Symbicort 167 4.52 puffs twice a day. Spiriva 2 puffs daily. -Hyperlipidemia Lipitor 20 mg a day -Depression Cymbalta 60 mg daily at bedtime -Acute kidney injury, possibly prerenal/ATN. Note creatinine is gone up from a baseline. : Better Hold Lasix. IV fluids-discontinue. -History of left upper arm DVT. Anticoagulation held because of repeated bleeding. -Rheumatoid arthritis -Essential hypertension Lopressor 25 mg twice a day -Persistent atrial fibrillation Lopressor 25 mg twice a day. No antibiotic medication because of prior history of severe bleeding. -Chronic gout Allopurinol -Macrocytic anemia. Recent significant hematoma and hematuria. Check B12. -Hyponatremia, better DC Lasix -DO NOT RESUSCITATE DC IV fluids. Discontinue Lasix. Patient to return to the [facility] tomorrow. Urine culture pending
[2021-09-20] MEDS ORDERED: GABAPENTIN 400 MG CAP PO SCH (21:00)
[2021-09-20] MEDS: DULoxetine HCL 60 MG CAPSULE.DR PO SCH (21:23)
[2021-09-20] MEDS: LATANOPROST 0.005% OPHTH DROPS 2.5 ML BTL BOTH EYES SCH (21:23)
[2021-09-20] MEDS: MONTELUKAST 10 MG TAB PO SCH (21:23)
[2021-09-21] MEDS: AMPICILLIN 1,000 MG in SODIUM CHLORIDE 0.9% 50 ML IVPB SCH ×3 (02:18→16:18)
[2021-09-21 07:32] VITALS: TEMP 98
[2021-09-21] MEDS: SYMBICORT 160-4.5 MCG INHALER INHALATION SCH (07:35)
[2021-09-21] MEDS: IPRATROPIUM 0.5 MG/2.5 ML NEBU INHALATION SCH ×3 (07:35→15:18)
[2021-09-21] MEDS: ALBUTEROL NEBULIZED 2.5 MG/3 ML INHALATION SCH ×3 (07:35→15:18)
[2021-09-21] MEDS: DOCUSATE 100 MG CAP PO SCH (09:41)
[2021-09-21] MEDS: METOPROLOL TARTRATE 25 MG TAB PO SCH (09:41)
[2021-09-21] MEDS: allopurinoL 100 MG TAB PO SCH (09:41)
[2021-09-21] MEDS: ACYCLOVIR 200 MG CAP PO SCH (09:41)
[2021-09-21] MEDS: POTASSIUM CHLORIDE ER 10 MEQ TAB.ER.PRT PO SCH (09:42)
[2021-09-21] MEDS: MAGNESIUM OXIDE 400 MG TAB PO SCH (09:42)
[2021-09-21] MEDS: PANTOPRAZOLE 40 MG TABLET PO SCH (09:42)
[2021-09-21] MEDS ORDERED: LEVOFLOXACIN 500 MG TAB PO STA (10:52)
--- NOTE | 2021-09-21 13:42 | P.DS ---
Providers Date of admission: 09/18/21 21:02 Expected date of discharge: 09/21/21 Attending physician: Ozzy Kitchen Consults: 09/18/21 21:02 Consult Physician Urgent Consulting Provider: Manjeet Vale Consult Reason/Comments: Urinary tract infection, Bagley catheter problem Do you want consulting provider notified?: Yes Primary care physician: Royer Rayo [facility] Course: Chief Complaint: Fever or chills This is a pleasant 86-year-old patient follows with Dr. Rayo at [facility]. Patient was discharged hospital 2 weeks ago. Patient denies severe bleeding and coagulopathy secondary to anticoagulation. Patient also had abdominal wall and pelvic hematoma and a urinary bladder hematoma. Computed tomography scan showed contrast extravasation suspicion for perforation of the bladder. Per urology patient is to give the Bagley catheter in. Repeat CAT scan in 2 weeks. Blood loss anemia. Also UTI from enterococcus group D. With sepsis. History of DVT and atrial fibrillation. Multiple myeloma. Chronic diastolic CHF. At the F patient is able to stand with support. Decreased appetite. Having bowel movements. Has a chronic Bagley since last admission. Presented with fever or chills tired rundown. Patient was reported to have decreased urine output over the last 2 days. Urine became rather cloudy and follow ordered. UA was rather infected appearing. Started on IV Unasyn. Urology consulted. September 20: Bagley catheter is functioning. Bagley catheter was apparently clogged up. Patient scheduled for CT cystogram on September 23-per Dr. johnson to keep the appointment. Bladder repair would be the next step if recurrent clogging. Patient has been declining any surgical intervention at this point. Return to [facility] tomorrow. September 21: Urine culture came back showing Enterobacter cloacae. Antibiotic changed to Levaquin. We will give for one week. Patient scheduled to have a CT cystogram on September 23 and a follow-up with Dr. vale on September 24. Discussed with patient. Return to [facility]. Lasix has been discontinued. Acute kidney injury resolved. Discussion and discharge planning more than 35 minutes Past medical history to include: COPD, DVT, hypertension, hyperlipidemia, osteoarthritis, rheumatoid arthritis, gout, DVT in the left upper arm, lung,, bradycardia with pacemaker, multiple myeloma Social history: Patient smoked for about 40 years. No alcohol. Currently at [facility]. Family history: Pelvic fibrosis. Cancer Physical examination: VITAL SIGNS: 98, 95, 17, 99/67, 95% room air. GENERAL:, reclining in bed awake , comfortable tired. EYES: Pupils equal. Conjunctiva normal. HEENT: External appearance of nose and ears normal, oral cavity grossly normal. NECK: JVD not raised; masses not palpable. HEART: First and second heart sounds are normal; no edema. LUNGS:[ Respiratory rate normal; decreased breath sounds. ABDOMEN: Soft, nontender, liver spleen not palpable, no masses palpable. Bagley catheter with dirty-appearing urine PSYCH: Alert and oriented x3; mood and affect normal. MUSCULOSKELETAL:No Clubbing/cyanosis;muscles-grossly intact. Evidence of OA Sacral decubitus possibly stage II INVESTIGATIONS, reviewed in the clinical context: Urine culture:Enterobacter cloacae. September 20: Potassium 3.8 creatinine 0.77 sodium 131 White count 12.70 globin 10.1 platelets 472 sodium 128 potassium 4.3 BUN 30 creatinine 1.4 UA positive for WBC, bacteria EKG tracing personally reviewed by me-atrial fibrillation with a rate of 117. Right bundle branch block pattern. Previous labs: BUN 14 creatinine 0.69 on 09/04/2021 Assessment and plan: -Acute UTI with cystitis, secondary to Bagley catheter in a patient with recent bladder infection/perforation with hemorrhage. With culture positive for Enterobacter cloacae. Started Levaquin. Complete 7 days. -Recent bladder perforation with bleeding. Patient due for a CT cystogram on September 23. At this point patient not keen for any surgical intervention/including bladder repair. Had Bagley catheter blockage on this admission now cleared We'll follow with Dr. vale on October 24. -Obesity BMI 34.7 Weight loss measures -Chronic medical debility Patient just about able to stand with support. -COPD in a previous smoker Symbicort 167 4.52 puffs twice a day. Spiriva 2 puffs daily. -Hyperlipidemia Lipitor 20 mg a day -Depression Cymbalta 60 mg daily at bedtime -Acute kidney injury, possibly prerenal/ATN. Note creatinine is gone up from a baseline. : Lasix discontinued. Creatinine improved from 1.4 down to 0.77 -History of left upper arm DVT. Anticoagulation held because of repeated bleeding. -Rheumatoid arthritis -Essential hypertension Lopressor 25 mg twice a day -Persistent atrial fibrillation Lopressor 25 mg twice a day. No antibiotic medication because of prior history of severe bleeding. -Chronic gout Allopurinol -Macrocytic anemia. Recent significant hematoma and hematuria. Check B12. -Hyponatremia, better DC Lasix -DO NOT RESUSCITATE Disposition: [place] Plan - Discharge Summary Discharge Rx Participant: No New Discharge Prescriptions: New Levofloxacin [Levaquin] 500 mg PO DAILY #7 tab Continue Bimatoprost [Lumigan 0.01% Ophth Soln] 1 drop BOTH EYES HS@1999 Montelukast [Singulair] 10 mg PO HS@1999 allopurinoL [Zyloprim] 100 mg PO BID@0800,1999 DULoxetine HCL [Cymbalta] 60 mg PO HS@1999 Nitroglycerin Sl Tabs [Nitrostat] 0.4 mg SUBLINGUAL Q5M PRN PRN Reason: Chest Pain Multivitamins, Thera [Multivitamin (formulary)] 1 tab PO DAILY@1700 Folic Acid 1 mg PO DAILY@0800 Metoprolol Tartrate [Lopressor] 25 mg PO BID@0800,1700 Psyllium Husk 100% [Metamucil Packet] 6 gm PO DAILY@0800 ondansetron HCL [Zofran] 8 mg PO Q6H PRN PRN Reason: Nausea Acetaminophen Tab [Tylenol] 650 mg PO Q6HR PRN tab PRN Reason: Mild Pain Or Fever > 100.5 Ascorbic Acid [Vitamin C] 1,000 mg PO DAILY@1700 bisacodyL [Dulcolax] 10 mg RECTAL DAILY PRN PRN Reason: Constipation Cholecalciferol [Vitamin D3 (125 Mcg = 5000 Iu)] 125 mcg PO DAILY@1700 Tiotropium 2.5 Mcg/Puff [Spiriva Respimat 2.5 Mcg] 2 puff INHALATION RT- DAILY@0800 Zinc Gluconate [Zinc] 50 mg PO DAILY@1700 Magnesium Hydroxide [Milk of Magnesia Concentrate] 7,200 mg PO DAILY PRN PRN Reason: Constipation Loperamide [Imodium] 2 mg PO QID PRN PRN Reason: LOOSE STOOLS Gabapentin [Neurontin] 400 mg PO BID@0800,2100 #6 cap HYDROcodone/APAP 5-325MG [[place] 5-325] 1 tab PO Q8HR PRN #9 tab PRN Reason: Pain Atorvastatin [Lipitor] 20 mg PO DAILY@1700 Acyclovir [Zovirax] 400 mg PO BID@08,1999 Docusate [Colace] 100 mg PO DAILY@0800 Calcium Carbonate/Vitamin D3 [Calcium 600 mg-D3 10 Mcg (400 Iu)] 1 cap PO DAILY@170 guaiFENesin-DM 100-10MG/5ML [Robitussin DM] 10 ml PO Q6HR PRN ml PRN Reason: Cough Albuterol Inhaler [Ventolin Hfa Inhaler] 2 puff INHALATION RT-Q2H PRN gm PRN Reason: Shortness Of Breath Or Wheezing Budesonide-Formot 160-4.5 Mcg [Symbicort 160-4.5 Mcg Inhaler] 2 puff INHALATION RT-BID@0800,1700 Na Phos,M-B/Na Phos,Di-Ba [Fleet Adult] 133 ml RECTAL DAILY PRN PRN Reason: Constipation Albuterol Sulfate [Ventolin HFA] 2 puff INHALATION RT-QID@,,, Omeprazole 20 mg PO BID@0800,170 ALPRAZolam [Xanax] 0.25 mg PO BID PRN #6 tab PRN Reason: Anxiety Discontinued Furosemide [Lasix] 60 mg PO DAILY@0800 Potassium Chloride ER [K-Dur 20] 20 meq PO DAILY@170 Discharge Medication List Bimatoprost [Lumigan 0.01% Oph Soln] 1 drop BOTH EYES HS@199911/07/13 [History] Montelukast [Singulair] 10 mg PO HS@199911/07/13 [History] allopurinoL [Zyloprim] 100 mg PO BID@08,199907/09/14 [History] DULoxetine HCL [Cymbalta] 60 mg PO HS@199911/22/18 [History] Folic Acid 1 mg PO DAILY@79902/10/20 [History] Multivitamins, Thera [Multivitamin (formulary)] 1 tab PO DAILY@169902/10/20 [History] Nitroglycerin Sl Tabs [Nitrostat] 0.4 mg SUBLINGUAL Q5M PRN 02/10/20 [History] Atorvastatin [Lipitor] 20 mg PO DAILY@169908/31/20 [History] Metoprolol Tartrate [Lopressor] 25 mg PO BID@0800,169908/31/20 [History] Acyclovir [Zovirax] 400 mg PO BID@08,199908/03/21 [History] Calcium Carbonate/Vitamin D3 [Calcium 600 mg-D3 10 Mcg (400 Iu)] 1 cap PO DAILY@169908/03/21 [History] Docusate [Colace] 100 mg PO DAILY@79908/03/21 [History] Psyllium Husk 100% [Metamucil Packet] 6 gm PO DAILY@79908/03/21 [History] ondansetron HCL [Zofran] 8 mg PO Q6H PRN 08/03/21 [History] Acetaminophen Tab [Tylenol] 650 mg PO Q6HR PRN tab 08/19/21 [Rx] Albuterol Inhaler [Ventolin Hfa Inhaler] 2 puff INHALATION RT-Q2H PRN gm 08/19/21 [Rx] guaiFENesin-DM 100-10MG/5ML [Robitussin DM] 10 ml PO Q6HR PRN ml 08/19/21 [Rx] Ascorbic Acid [Vitamin C] 1,000 mg PO DAILY@169908/25/21 [History] Budesonide-Formot 160-4.5 Mcg [Symbicort 160-4.5 Mcg Inhaler] 2 puff INHALATION RT-BID@0800,169908/25/21 [History] Cholecalciferol [Vitamin D3 (125 Mcg = 5000 Iu)] 125 mcg PO DAILY@169908/25/21 [History] Na Phos,M-B/Na Phos,Di-Ba [Fleet Adult] 133 ml RECTAL DAILY PRN 08/25/21 [History] Tiotropium 2.5 Mcg/Puff [Spiriva Respimat 2.5 Mcg] 2 puff INHALATION RT- DAILY@79908/25/21 [History] Zinc Gluconate [Zinc] 50 mg PO DAILY@169908/25/21 [History] bisacodyL [Dulcolax] 10 mg RECTAL DAILY PRN 08/25/21 [History] Albuterol Sulfate [Ventolin HFA] 2 puff INHALATION RT-QID@08,12,,09/18/21 [History] Loperamide [Imodium] 2 mg PO QID PRN 09/18/21 [History] Magnesium Hydroxide [Milk of Magnesia Concentrate] 7,200 mg PO DAILY PRN 09/18/21 [History] Omeprazole 20 mg PO BID@0800,1700 09/18/21 [History] ALPRAZolam [Xanax] 0.25 mg PO BID PRN #6 tab 09/21/21 [Rx] Gabapentin [Neurontin] 400 mg PO BID@0800,2100 #6 cap 09/21/21 [Rx] HYDROcodone/APAP 5-325MG [[place] 5-325] 1 tab PO Q8HR PRN #9 tab 09/21/21 [Rx] Levofloxacin [Levaquin] 500 mg PO DAILY #7 tab 09/21/21 [Rx] Follow up Appointment(s)/Referral(s): Aparna Vale [Pharmacist] - 09/24/21 Royer Rayo DO [Primary Care Provider] - 1-2 Days Activity/Diet/Wound Care/Special Instructions: Patient to keep CT cystogram appointment on September 23 Irrigate Bagley catheter when necessary
[2021-09-21] MEDS: HYDROcodone/APAP 5-325MG 1 EACH TAB PO PRN (14:24)
[2021-09-21 14:42] VITALS: BP 94/58; PULSE 97; RESP 18
== END 2021-09-21 17:15 | DRG 698 ==
LOC: EC 17:30 → 4SSUR 21:02
PROVIDERS: ADMIT Hospitalist; ATTEND Hospitalist
DX: T83.511A Infection and inflammatory reaction due to indwelling urethral catheter, initial encounter (principal); N17.0 Acute kidney failure with tubular necrosis; A41.9 Sepsis, unspecified organism; N30.00 Acute cystitis without hematuria; E87.1 Hypo-osmolality and hyponatremia; I48.19 Other persistent atrial fibrillation; C90.00 Multiple myeloma not having achieved remission; I50.32 Chronic diastolic (congestive) heart failure; T80.818A Extravasation of other vesicant agent, initial encounter; Z66 Do not resuscitate; Z20.822 Contact with and (suspected) exposure to COVID-19; J44.9 Chronic obstructive pulmonary disease, unspecified; I11.0 Hypertensive heart disease with heart failure; F17.210 Nicotine dependence, cigarettes, uncomplicated; E66.9 Obesity, unspecified; Z68.34 Body mass index [BMI] 34.0-34.9, adult; B95.2 Enterococcus as the cause of diseases classified elsewhere; B96.20 Unspecified Escherichia coli [E. coli] as the cause of diseases classified elsewhere; D50.0 Iron deficiency anemia secondary to blood loss (chronic); D53.9 Nutritional anemia, unspecified; L89.152 Pressure ulcer of sacral region, stage 2; E78.5 Hyperlipidemia, unspecified; J45.909 Unspecified asthma, uncomplicated; F32.A Depression, unspecified; F41.9 Anxiety disorder, unspecified; K59.00 Constipation, unspecified; M10.9 Gout, unspecified; M06.9 Rheumatoid arthritis, unspecified; M19.90 Unspecified osteoarthritis, unspecified site; M1A.9XX0 Chronic gout, unspecified, without tophus (tophi); N32.89 Other specified disorders of bladder; N94.89 Other specified conditions associated with female genital organs and menstrual cycle; R31.0 Gross hematuria; Z79.51 Long term (current) use of inhaled steroids; Z79.899 Other long term (current) drug therapy; Z80.8 Family history of malignant neoplasm of other organs or systems; Z86.16 Personal history of COVID-19; Z86.718 Personal history of other venous thrombosis and embolism; Z96.651 Presence of right artificial knee joint; Z88.8 Allergy status to other drugs, medicaments and biological substances; Z91.048 Other nonmedicinal substance allergy status; Z98.42 Cataract extraction status, left eye; Z98.41 Cataract extraction status, right eye; Z90.49 Acquired absence of other specified parts of digestive tract; Z87.19 Personal history of other diseases of the digestive system
CPT/HCPCS: 36415; 71045; 80048; 80053; 81001; 82607; 83605; 83735; 84484; 85025; 85027; 85610; 87040; 87077; 87086; 87186; 87324; 87635; 93005; 94640; 94760; 96365; 99291

== ENCOUNTER 2021-09-22 18:00 | Inpatient (IN) | payer MEDICARE ==
[2021-09-22] MEDS ORDERED: SODIUM CHLORIDE 0.9% 2,000 ML IV STA (18:31)
[2021-09-22] MEDS ORDERED: ACETAMINOPHEN TAB 500 MG TAB PO STA (18:32)
--- NOTE | 2021-09-22 18:35 | ED ---
Female Urogenital HPI - General Source: patient, EMS, RN notes reviewed Mode of arrival: EMS Limitations: no limitations - History of Present Illness MD Complaint: other (Hematuria) Patient : No <Jaimee Pena - Last Filed: 09/22/21 21:40> <Noe Pascal - Last Filed: 09/22/21 21:50> - General Chief complaint: Urogenital Stated complaint: infection Time Seen by Provider: 09/22/21 18:19 - History of Present Illness Initial comments: This is an 86-year-old female who presents to the emergency department with hematuria. Patient has a known bladder perforation and was discharged from this facility yesterday after a 3 day admission for sepsis, a UTI, and acute on chronic kidney injury. She was discharged on a course of Levaquin. Urine culture was positive for enterobactor cloacae and the bacteria was found to be sensitive to the Levaquin. Patient has been taking this as prescribed since discharge. She is still residing at [facility] and was found to have bc hematuria in the catheter this morning. She was also said to be hypotensive by the staff at [facility]. Patient is completely asymptomatic in terms of the hypotension, she complains of no dizziness or lightheadedness. Other than mild lower abdominal discomfort, she reports no symptoms at all. She is very emotional in the room regarding the situation. She is scheduled to have a cystogram with nephrology at this facility tomorrow. Also states that she occasionally uses oxygen at home but does not currently feel short of breath. Denies any fevers, chills, sore throat, cough, dyspnea, chest pain, palpitations, nausea, vomiting, diarrhea, back pain, or headaches. (Jaimee Pena) - Related Data Home Medications Medication Instructions Recorded Confirmed Bimatoprost [Lumigan 0.01% Ophth 1 drop BOTH EYES HS@199911/07/13 09/18/21 Soln] Montelukast [Singulair] 10 mg PO HS@199911/07/13 09/18/21 allopurinoL [Zyloprim] 100 mg PO BID@0800,199907/09/14 09/18/21 DULoxetine HCL [Cymbalta] 60 mg PO HS@199911/22/18 09/18/21 Folic Acid 1 mg PO DAILY@0800 02/09/20 06/17/22 Multivitamins, Thera [Multivitamin 1 tab PO DAILY@169902/10/20 09/18/21 (formulary)] Nitroglycerin Sl Tabs [Nitrostat] 0.4 mg SUBLINGUAL Q5M PRN 02/10/20 09/18/21 Atorvastatin [Lipitor] 20 mg PO DAILY@169908/31/20 09/18/21 Metoprolol Tartrate [Lopressor] 25 mg PO BID@08,169908/31/20 09/18/21 Acyclovir [Zovirax] 400 mg PO BID@08,199908/03/21 09/18/21 Calcium Carbonate/Vitamin D3 1 cap PO DAILY@169908/03/21 09/18/21 [Calcium 600 mg-D3 10 Mcg (400 Iu)] Docusate [Colace] 100 mg PO DAILY@79908/03/21 09/18/21 Psyllium Husk 100% [Metamucil 6 gm PO DAILY@79908/03/21 09/18/21 Packet] ondansetron HCL [Zofran] 8 mg PO Q6H PRN 08/03/21 09/18/21 Ascorbic Acid [Vitamin C] 1,000 mg PO DAILY@169908/25/21 09/18/21 Budesonide-Formot 160-4.5 Mcg 2 puff INHALATION RT-BID@08,169908/25/21 09/18/21 [Symbicort 160-4.5 Mcg Inhaler] Cholecalciferol [Vitamin D3 (125 125 mcg PO DAILY@169908/25/21 09/18/21 Mcg = 5000 Iu)] Na Phos,M-B/Na Phos,Di-Ba [Fleet 133 ml RECTAL DAILY PRN 08/25/21 09/18/21 Adult] Tiotropium 2.5 Mcg/Puff [Spiriva 2 puff INHALATION RT-DAILY@79908/25/21 09/18/21 Respimat 2.5 Mcg] Zinc Gluconate [Zinc] 50 mg PO DAILY@169908/25/21 09/18/21 bisacodyL [Dulcolax] 10 mg RECTAL DAILY PRN 08/25/21 09/18/21 Albuterol Sulfate [Ventolin HFA] 2 puff INHALATION 09/18/21 09/18/21 RT-QID@08,,, Loperamide [Imodium] 2 mg PO QID PRN 09/18/21 09/18/21 Magnesium Hydroxide [Milk of 7,200 mg PO DAILY PRN 09/18/21 09/18/21 Magnesia Concentrate] Omeprazole 20 mg PO BID@0800,1700 09/18/21 09/18/21 Previous Rx's Medication Instructions Recorded Acetaminophen Tab [Tylenol] 650 mg PO Q6HR PRN tab 08/19/21 Albuterol Inhaler [Ventolin Hfa 2 puff INHALATION RT-Q2H PRN gm 08/19/21 Inhaler] guaiFENesin-DM 100-10MG/5ML 10 ml PO Q6HR PRN ml 08/19/21 [Robitussin DM] ALPRAZolam [Xanax] 0.25 mg PO BID PRN #6 tab 09/21/21 Gabapentin [Neurontin] 400 mg PO BID@0800,2100 #6 cap 09/21/21 HYDROcodone/APAP 5-325MG [[place] 1 tab PO Q8HR PRN #9 tab 09/21/21 5-325] Levofloxacin [Levaquin] 500 mg PO DAILY #7 tab 09/21/21 Allergies Allergy/AdvReac Type Severity Reaction Status Date / Time LUNA Inhibitors AdvReac Cough Verified 09/22/21 18:19 IV STEROIDS Allergy Itching Uncoded 09/22/21 18:19 tape Allergy Unknown Uncoded 09/22/21 18:19 Review of Systems ROS Other: All systems not noted in ROS Statement are negative. <Jaimee Pena - Last Filed: 09/22/21 21:40> ROS Other: All systems not noted in ROS Statement are negative. <Noe Pascla - Last Filed: 09/22/21 21:50> ROS Statement: Those systems with pertinent positive or pertinent negative responses have been documented in the HPI. Past Medical History Past Medical History: Asthma, Cancer, COPD, Deep Vein Thrombosis (DVT), Hyperlipidemia, Hypertension, Osteoarthritis (OA), Rheumatoid Arthritis (RA), Skin Disorder Additional Past Medical History / Comment(s): Hx. gout, DVT L upper arm, dermatitis, bilateral glaucoma, bradycardia- pacemaker, degenerative disc di sease, cervical and back pain, MULTIMYLOMA LAST TX THURS, perforated bladder History of Any Multi-Drug Resistant Organisms: None Reported Past Surgical History: Adenoidectomy, Appendectomy, Cholecystectomy, Hernia Repair, Orthopedic Surgery, Pacemaker, Tonsillectomy, Tubal Ligation Additional Past Surgical History / Comment(s): Hx throat nodule removed, mole left eyelid, D&C, bilat cataracts removed . RIGHT KNEE REPLACEMENT X 2., shoulder surgeries , hiatal hernia repair, I&D L inguinal abscess, right wrist surgery Past Anesthesia/Blood Transfusion Reactions: No Reported Reaction Type of Cardiac Device: Permanent Pacemaker Device Placement Date:: October 2012 Past Psychological History: No Psychological Hx Reported Smoking Status: Former smoker Past Alcohol Use History: None Reported Past Drug Use History: None Reported - Past Family History Father Additional Family Medical History / Comment(s): Father pulmonary fibrosis Mother Family Medical History: Cancer Sister(s) Additional Family Medical History / Comment(s): melanoma <Jaimee Pena - Last Filed: 09/22/21 21:40> General Exam Limitations: no limitations General appearance: alert, other (Tearful) Head exam: Present: atraumatic, normocephalic, normal inspection Respiratory exam: Present: normal lung sounds bilaterally. Absent: respiratory distress, wheezes, rales, rhonchi, stridor Cardiovascular Exam: Present: tachycardia, irregular rhythm. Absent: systolic murmur, diastolic murmur, rubs, gallop, clicks Extremities exam: Present: other (2+ radial pulses bilaterally, 1+ dorsalis pedis and tibialis posterior pulses bilaterally. Capillary refill 1-2 seconds in the fingers and toes. ). Absent: pedal edema, joint swelling Neurological exam: Present: alert, oriented X3, CN II-XII intact Psychiatric exam: Present: depressed Skin exam: Present: warm, dry, intact, normal color. Absent: rash <Jaimee Pena - Last Filed: 09/22/21 21:40> Course Vital Signs 09/22/21 09/22/21 09/22/21 18:08 18:50 19:18 Temperature 99.0 F Pulse Rate 118 H 126 H 98 Respiratory 18 18 20 Rate Blood Pressure 78/46 72/48 85/46 O2 Sat by Pulse 93 L 97 99 Oximetry Procedures - Sepsis Sepsis Focused Exam #1 Time Sepsis Criteria Met: 20:03 Sepsis Focused Exam Date: 09/22/21 Sepsis Focused Exam Time: 20:05 Sepsis Focused Exam Complete: Yes Vital Signs & RN Notes Reviewed: Yes Capillary Refill: < 2 Seconds: Fingers, Toes Peripheral Pulses: Weak: Posterior Tibialis (R) (1+), Posterior Tibialis (L) (1+), Dorsalis Pedis (R) (1+), Dorsalis Pedis (L) (1+), Normal: Radial (R), Radial (L) Skin Color: Normal for Patient Respiratory Exam: normal lung sounds Cardiovascular Exam: tachycardia, irregular rhythm <Jaimee Pena - Last Filed: 09/22/21 21:40> Medical Decision Making - Lab Data Result diagrams: 09/22/21 18:18 09/22/21 18:18 <Jaimee Pena - Last Filed: 09/22/21 21:40> - Lab Data Result diagrams: 09/22/21 18:18 09/22/21 18:18 - EKG Data -: EKG Interpreted by Me (EKG is A. fib with RVR 118 QRS 157 QTc 400) <Noe Pascal - Last Filed: 09/22/21 21:50> - Medical Decision Making This is an 86-year-old female who presents to the emergency department for hematuria. The patient's elevated WBC, BP, and HR meat SIRS criteria and the known UTI due to Enterobacter cloacae meets Sepsis criteria. Patient received a bolus of 3 L normal saline. She continued to have hypotension following the fluid bolus and meets septic shock criteria at 20:03. Focused exam performed at 20:05. Blood cultures obtained and patient started on IV cefepime based on sensitivity from the urine culture. She was given Tylenol for her temperature and it was found to be 97.7 degrees F when rechecked. Case discussed with Dr. Pascal, he will follow the patient and determine if a central line for vasopressor administration is needed. In which case, patient will be admitted to the ICU. Will also see if patient can have cystogram during admission. Will also consult palliative care regarding the patient's multiple hospitalizations and emotional stress related to severe physical illness. (Jaimee Pena) - Lab Data Lab Results 09/22/21 09/22/21 09/22/21 Range/Units 18:18 18:18 18:18 WBC 20.9 H (3.8-10.6) k/uL RBC 3.46 L (3.80-5.40) m/uL Hgb 11.0 L (11.4-16.0) gm/dL Hct 35.4 (34.0-46.0) % MCV 102.3 H (80.0-100.0) fL MCH 31.8 (25.0-35.0) pg MCHC 31.1 (31.0-37.0) g/dL RDW 17.8 H (11.5-15.5) % Plt Count 516 H (150-450) k/uL MPV 7.8 Neutrophils % (Manual) 75 % Band Neuts % (Manual) 11 % Lymphocytes % (Manual) 8 % Monocytes % (Manual) 6 % Neutrophils # (Manual) 17.90 H (1.3-7.7) k/uL Lymphocytes # (Manual) 1.67 (1.0-4.8) k/uL Monocytes # (Manual) 1.25 H (0-1.0) k/uL Nucleated RBCs 0 (0-0) /100 WBC Manual Slide Review Performed Hypochromasia Marked Anisocytosis Slight Macrocytosis Moderate PT 13.8 H (9.0-12.0) sec INR 1.3 H (<1.2) Sodium 127 L (137-145) mmol/L Potassium 4.9 (3.5-5.1) mmol/L Chloride 99 (98-107) mmol/L Carbon Dioxide 20 L (22-30) mmol/L Anion Gap 8 mmol/L BUN 26 H (7-17) mg/dL Creatinine 1.68 H (0.52-1.04) mg/dL Est GFR (CKD-EPI)AfAm 32 (>60 ml/min/1.73 sqM) Est GFR (CKD-EPI)NonAf 28 (>60 ml/min/1.73 sqM) Glucose 96 (74-99) mg/dL Lactic Ac Sepsis Rflx Plasma Lactic Acid Lalit (0.7-2.0) mmol/L Calcium 8.7 (8.4-10.2) mg/dL Total Bilirubin 0.6 (0.2-1.3) mg/dL AST 28 (14-36) U/L ALT 16 (4-34) U/L Alkaline Phosphatase 137 H (38-126) U/L Troponin I (0.000-0.034) ng/mL Total Protein 4.6 L (6.3-8.2) g/dL Albumin 2.0 L (3.5-5.0) g/dL 09/22/21 09/22/21 09/22/21 Range/Units 18:18 18:18 19:15 WBC (3.8-10.6) k/uL RBC (3.80-5.40) m/uL Hgb (11.4-16.0) gm/dL Hct (34.0-46.0) % MCV (80.0-100.0) fL MCH (25.0-35.0) pg MCHC (31.0-37.0) g/dL RDW (11.5-15.5) % Plt Count (150-450) k/uL MPV Neutrophils % (Manual) % Band Neuts % (Manual) % Lymphocytes % (Manual) % Monocytes % (Manual) % Neutrophils # (Manual) (1.3-7.7) k/uL Lymphocytes # (Manual) (1.0-4.8) k/uL Monocytes # (Manual) (0-1.0) k/uL Nucleated RBCs (0-0) /100 WBC Manual Slide Review Hypochromasia Anisocytosis Macrocytosis PT (9.0-12.0) sec INR (<1.2) Sodium (137-145) mmol/L Potassium (3.5-5.1) mmol/L Chloride (98-107) mmol/L Carbon Dioxide (22-30) mmol/L Anion Gap mmol/L BUN (7-17) mg/dL Creatinine (0.52-1.04) mg/dL Est GFR (CKD-EPI)AfAm (>60 ml/min/1.73 sqM) Est GFR (CKD-EPI)NonAf (>60 ml/min/1.73 sqM) Glucose (74-99) mg/dL Lactic Ac Sepsis Rflx Y Plasma Lactic Acid Lalit 2.4 H* (0.7-2.0) mmol/L Calcium (8.4-10.2) mg/dL Total Bilirubin (0.2-1.3) mg/dL AST (14-36) U/L ALT (4-34) U/L Alkaline Phosphatase (38-126) U/L Troponin I <0.012 (0.000-0.034) ng/mL Total Protein (6.3-8.2) g/dL Albumin (3.5-5.0) g/dL A. fib with RVR, left axis deviation, right bundle branch block, ventricular rate 118 bpm, QRS duration 157 ms, QTC 400 ms. 09/22/21 19:38 (Jaimee Pena) Disposition <Jaimee Pena - Last Filed: 09/22/21 21:40> <Noe Pascal - Last Filed: 09/22/21 21:50> Clinical Impression: Hypotension, Atrial fibrillation with RVR, Septic shock Disposition: ADMITTED IP TO THIS HOSP Referrals: Royer Rayo DO [Primary Care Provider] - 1-2 days
[2021-09-22 18:44] LABS: Anisocytosis Slight; HCT 35.4 % (34.0-46.0); Hypochromasia Marked; MCH 31.8 pg (25.0-35.0); MCHC 31.1 g/dL (31.0-37.0); MCV 102.3 fL (80.0-100.0); Macrocytosis Moderate; Mean Platelet Volume 7.8; Platelet Count 516 k/uL (150-450); RBC 3.46 m/uL (3.80-5.40); RDW 17.8 % (11.5-15.5); WBC 20.9 k/uL (3.8-10.6)
[2021-09-22 18:55] LABS: Calcium 8.7 mg/dL (8.4-10.2); Total Bilirubin 0.6 mg/dL (0.2-1.3); Total Protein 4.6 g/dL (6.3-8.2)
[2021-09-22 19:01] LABS: INR 1.3 (<1.2); Prothrombin Time 13.8 sec (9.0-12.0)
[2021-09-22 19:13] LABS: Potassium 4.9 mmol/L (3.5-5.1)
[2021-09-22] MEDS ORDERED: CEFEPIME 2 GM in SODIUM CHLORIDE 0.9% 100 ML IVPB ONE (19:15)
[2021-09-22] MEDS ORDERED: SODIUM CHLORIDE 0.9% 1,000 ML IV STA ×2 (19:55→21:59)
[2021-09-22] MEDS: SODIUM CHLORIDE 0.9% 500 ML 500 ML IV SCH ×3 (20:15→21:45)
[2021-09-22 20:25] LABS: Band Neutrophils % 11 %; Lymphocytes # (M) 1.67 k/uL (1.0-4.8); Monocytes # (M) 1.25 k/uL (0-1.0); Neutrophils % (M) 75 %; Nucleated Red Blood Cells 0 /100 WBC (0-0); Total Cells Counted 100
--- NOTE | 2021-09-22 22:30 | XR ---
EXAMINATION TYPE: XR chest 1V portable DATE OF EXAM: 09/22/2021 COMPARISON: 09/19/2021 HISTORY: Effusion TECHNIQUE: Single view FINDINGS: There is some coarse interstitial density at the lung bases. There is left axillary pacemak er. Thoracic aorta is atheromatous. IMPRESSION: There is some interstitial infiltrate and atelectasis at the lung bases. This appears inc reased compared to old exam. No obvious heart failure.
[2021-09-22] MEDS ORDERED: NALOXONE 0.4 MG/ML 1 ML VIAL IV PRN (23:00)
[2021-09-22] MEDS ORDERED: ONDANSETRON 4 MG/2 ML VIAL IVP PRN (23:00)
[2021-09-22] MEDS ORDERED: IPRATROPIUM-ALBUTEROL 3 ML NEB INHALATION STA (23:44)
[2021-09-22] MEDS ORDERED: IPRATROPIUM-ALBUTEROL 3 ML NEB INHALATION PRN (23:44)
[2021-09-23] MEDS: SODIUM CHLORIDE 0.9% 1,000 ML IV SCH ×3 (01:38→12:00)
[2021-09-23] MEDS ORDERED: CEFEPIME 2 GM in SODIUM CHLORIDE 0.9% 100 ML IVPB SCH ×2 (04:00→08:30)
[2021-09-23 06:21] LABS: Anisocytosis Slight; HCT 32.3 % (34.0-46.0); HGB 9.9 gm/dL (11.4-16.0); Hypochromasia Marked; MCH 32.6 pg (25.0-35.0); MCHC 30.8 g/dL (31.0-37.0); MCV 105.7 fL (80.0-100.0); Macrocytosis Marked; Mean Platelet Volume 8.2; Platelet Count 339 k/uL (150-450); RBC 3.05 m/uL (3.80-5.40); RDW 17.4 % (11.5-15.5)
[2021-09-23 06:32] LABS: Albumin 1.7 g/dL (3.5-5.0); Calcium 8.1 mg/dL (8.4-10.2); Magnesium 1.2 mg/dL (1.6-2.3); Phosphorus 3.8 mg/dL (2.5-4.5); Potassium 4.5 mmol/L (3.5-5.1); Total Bilirubin 0.4 mg/dL (0.2-1.3); Total Protein 4.1 g/dL (6.3-8.2)
[2021-09-23 07:27] LABS: Band Neutrophils % 44 %; Lymphocytes # (M) 2.16 k/uL (1.0-4.8); Monocytes # (M) 0.18 k/uL (0-1.0); Neutrophils % (M) 43 %; Nucleated Red Blood Cells 0 /100 WBC (0-0); Total Cells Counted 200
[2021-09-23 07:31] LABS: Large Platelets Present
[2021-09-23 07:34] LABS: Crenated RBC Present; Poikilocytosis (M) Present
[2021-09-23 07:36] LABS: Toxic Vacuolation Present
[2021-09-23] MEDS ORDERED: ONDANSETRON 4 MG TAB PO PRN (10:39)
[2021-09-23] MEDS ORDERED: LOPERAMIDE 2 MG CAP PO PRN (10:39)
[2021-09-23] MEDS ORDERED: GABAPENTIN 400 MG CAP PO SCH (10:39)
[2021-09-23] MEDS ORDERED: ALPRAZolam 0.25 MG TAB PO PRN (10:39)
[2021-09-23] MEDS ORDERED: NA PHOS,M-B/NA PHOS,DI-BA 133 ML ENEMA RECTAL PRN (10:39)
[2021-09-23] MEDS ORDERED: NITROGLYCERIN SL TABS 0.4 MG TAB SUBLINGUAL PRN (10:39)
[2021-09-23] MEDS ORDERED: guaiFENesin-DM 100-10MG/5ML 10 ML CUP PO PRN (10:39)
[2021-09-23] MEDS ORDERED: ALBUTEROL NEBULIZED 2.5 MG/3 ML INHALATION PRN (10:39)
[2021-09-23] MEDS ORDERED: MAGNESIUM HYDROXIDE 2,400 MG/10 ML CUP PO PRN (10:39)
[2021-09-23] MEDS ORDERED: bisacodyL 10 MG SUPP RECTAL PRN (10:39)
[2021-09-23] MEDS: FOLIC ACID 1 MG TAB PO SCH (11:09)
[2021-09-23] MEDS: LEVOFLOXACIN 250 MG TAB PO SCH (11:10)
[2021-09-23] MEDS: PANTOPRAZOLE 40 MG TABLET PO SCH ×2 (11:19→17:34)
[2021-09-23] MEDS: METOPROLOL TARTRATE 25 MG TAB PO SCH ×5 (11:19→17:31)
[2021-09-23] MEDS: allopurinoL 100 MG TAB PO SCH ×2 (11:19→20:44)
[2021-09-23] MEDS: ENOXAPARIN 30 MG/0.3 ML SYRINGE SQ SCH (11:20)
[2021-09-23] MEDS ORDERED: ALBUTEROL NEBULIZED 2.5 MG/3 ML INHALATION SCH (12:00)
--- NOTE | 2021-09-23 13:45 | P.CONS ---
History of Present Illness - Reason for Consult Consult date: 09/23/21 Goals of care/emotional support Requesting physician: Jaimee Pena - Chief Complaint Hematuria - History of Present Illness This is an 86-year-old female with a pmh significant for CHF, COPD, Afib, multiple myeloma, and a DVT. She presented to the emergency department on 09/22/21 with hematuria. Patient has a known bladder perforation and was discharged from this facility yesterday after a 3 day admission for sepsis, a UTI, and acute on chronic kidney injury. She was discharged on a course of Levaquin. Urine culture was positive for enterobactor cloacae and the bacteria was found to be sensitive to the Levaquin. Patient has been taking this as prescribed since discharge. She is still residing at [facility] and was found to have bc hematuria in the catheter this morning. She was also said to be hypotensive by the staff at [facility] as well as in the ED. Blood cultures obtained and patient started on IV cefepime based on sensitivity from the urine culture. Review of Systems Review Of Systems: Constitutional: No fever, no chills, no night sweats. + Weakness and fatigue or lethargy. HEENT: No headache. No blurred vision or double vision, no loss of vision. No dizziness. + AFOGNAK Lungs: No shortness of breath, cough, no sputum production. No wheezing. Cardiovascular: No chest pain, no lower extremity edema. No palpitations. No lightheadedness or dizziness. Abdominal: + Abdominal tenderness. No nausea, vomiting. No diarrhea. No constipation. No bloody or tarry stools. Genitourinary: Chronic bernabe with hematuria Musculoskeletal: + Generalized weakness. No back pain. No neck pain. Integumentary: No wounds, no lesions. No rash or pruritus. No unusual bruising. Neurologic: No aphasia. No facial droop. No change in mentation. No head injury. No headache. No paralysis. No paresthesia. Psychiatric: No depression. +Anxiety. No mood swings. Past Medical History Past Medical History: Asthma, Cancer, COPD, Deep Vein Thrombosis (DVT), Hyper lipidemia, Hypertension, Osteoarthritis (OA), Rheumatoid Arthritis (RA), Skin Disorder Additional Past Medical History / Comment(s): Hx. gout, DVT L upper arm, dermatitis, bilateral glaucoma, bradycardia- pacemaker, degenerative disc disease, cervical and back pain, MULTIMYLOMA LAST TX THURS, perforated bladder History of Any Multi-Drug Resistant Organisms: None Reported Past Surgical History: Adenoidectomy, Appendectomy, Cholecystectomy, Hernia Repair, Orthopedic Surgery, Pacemaker, Tonsillectomy, Tubal Ligation Additional Past Surgical History / Comment(s): Hx throat nodule removed, mole le ft eyelid, D&C, bilat cataracts removed . RIGHT KNEE REPLACEMENT X 2., shoulder surgeries , hiatal hernia repair, I&D L inguinal abscess, right wrist surgery Past Anesthesia/Blood Transfusion Reactions: No Reported Reaction Type of Cardiac Device: Permanent Pacemaker Device Placement Date:: October 2012 Past Psychological History: No Psychological Hx Reported Smoking Status: Former smoker Past Alcohol Use History: None Reported Past Drug Use History: None Reported - Past Family History Father Additional Family Medical History / Comment(s): Father pulmonary fibrosis Mother Family Medical History: Cancer Sister(s) Additional Family Medical History / Comment(s): melanoma Medications and Allergies Home Medications Medication Instructions Recorded Confirmed Type Bimatoprost [Lumigan 0.01% Ophth 1 drop BOTH EYES HS@199911/07/13 09/22/21 History Soln] Montelukast [Singulair] 10 mg PO HS@199911/07/13 09/22/21 History allopurinoL [Zyloprim] 100 mg PO BID@799,199907/09/14 09/22/21 History DULoxetine HCL [Cymbalta] 60 mg PO HS@199911/22/18 09/22/21 History Folic Acid 1 mg PO DAILY@0800 02/10/20 09/22/21 History Multivitamins, Thera [Multivitamin 1 tab PO DAILY@169902/10/20 09/22/21 History (formulary)] Nitroglycerin Sl Tabs [Nitrostat] 0.4 mg SUBLINGUAL Q5M PRN 02/10/20 09/22/21 History Atorvastatin [Lipitor] 20 mg PO DAILY@169908/31/20 09/22/21 History Metoprolol Tartrate [Lopressor] 25 mg PO BID@0800,0 08/31/20 09/22/21 History Acyclovir [Zovirax] 400 mg PO BID@799,199908/03/21 09/22/21 History Calcium Carbonate/Vitamin D3 1 cap PO DAILY@169908/03/21 09/22/21 History [Calcium 600 mg-D3 10 Mcg (400 Iu)] Docusate [Colace] 100 mg PO DAILY@79908/03/21 09/22/21 History Psyllium Husk 100% [Metamucil 6 gm PO DAILY@79908/03/21 09/22/21 History Packet] ondansetron HCL [Zofran] 8 mg PO Q6H PRN 08/03/21 09/22/21 History Acetaminophen Tab [Tylenol] 650 mg PO Q6HR PRN tab 08/19/21 09/22/21 Rx Albuterol Inhaler [Ventolin Hfa 2 puff INHALATION RT-Q2H PRN gm 08/19/21 09/22/21 Rx Inhaler] guaiFENesin-DM 100-10MG/5ML 10 ml PO Q6HR PRN ml 08/19/21 09/22/21 Rx [Robitussin DM] Ascorbic Acid [Vitamin C] 1,000 mg PO DAILY@169908/25/21 09/22/21 History Budesonide-Formot 160-4.5 Mcg 2 puff INHALATION RT-BID@0800,169908/25/21 09/22/21 History [Symbicort 160-4.5 Mcg Inhaler] Cholecalciferol [Vitamin D3 (125 125 mcg PO DAILY@169908/25/21 09/22/21 History Mcg = 5000 Iu)] Na Phos,M-B/Na Phos,Di-Ba [Fleet 133 ml RECTAL DAILY PRN 08/25/21 09/22/21 Hist ory Adult] Tiotropium 2.5 Mcg/Puff [Spiriva 2 puff INHALATION RT-DAILY@79908/25/21 09/22/21 History Respimat 2.5 Mcg] Zinc Gluconate [Zinc] 50 mg PO DAILY@169908/25/21 09/22/21 History bisacodyL [Dulcolax] 10 mg RECTAL DAILY PRN 08/25/21 09/22/21 History Albuterol Sulfate [Ventolin HFA] 2 puff INHALATION 09/18/21 09/22/21 History RT-QID@,, Loperamide [Imodium] 2 mg PO QID PRN 09/18/21 09/22/21 History Magnesium Hydroxide [Milk of 7,200 mg PO DAILY PRN 09/18/21 09/22/21 History Magnesia Concentrate] Omeprazole 20 mg PO BID@0800,1700 09/18/21 09/22/21 History ALPRAZolam [Xanax] 0.25 mg PO BID PRN #6 tab 09/21/21 09/22/21 Rx Gabapentin [Neurontin] 400 mg PO BID@0800,2100 #6 cap 09/21/21 09/22/21 Rx HYDROcodone/APAP 5-325MG [Teasdale 1 tab PO Q8HR PRN #9 tab 09/21/21 09/22/21 Rx 5-325] Levofloxacin [Levaquin] 250 mg PO DAILY@0800 09/22/21 09/22/21 History Allergies Allergy/AdvReac Type Severity Reaction Status Date / Time LUNA Inhibitors AdvReac Cough Verified 09/22/21 22:30 IV STEROIDS Allergy Itching Uncoded 09/22/21 18:19 tape Allergy Unknown Uncoded 09/22/21 18:19 Physical Exam Vitals: Vital Signs Temp Pulse Resp BP Pulse Ox 09/23/21 10:30 101 H 18 80/50 09/23/21 08:13 97.7 F 99 20 71/54 97 09/23/21 06:00 103 H 16 73/44 100 09/23/21 05:00 98 16 88/62 100 09/23/21 04:00 99 23 71/42 98 09/23/21 03:00 103 H 16 80/43 100 09/23/21 02:00 103 H 24 75/41 100 09/23/21 01:00 105 H 16 77/44 97 09/23/21 00:55 105 H 18 80/48 99 09/23/21 00:40 104 H 09/23/21 00:29 101 H 09/22/21 19:18 98 20 85/46 99 09/22/21 18:50 126 H 18 72/48 97 09/22/21 18:08 99.0 F 118 H 18 78/46 93 L Intake and Output 09/22/21 09/23/21 09/23/21 22:59 06:59 14:59 Output Total 500 Balance -500 Output: Urine 500 Other: Weight 99.79 kg General: Patient awake alert and oriented x 3. No acute distress. HEENT: Head is atraumatic, normocephalic Neck is supple. Sclerae are clear. Pupils equal, round and reactive to light bilaterally. CV: Heart irregular in rate and rhythm positive S1 and S2. No clicks, rubs or murmurs. No JVD. Lungs: Diminished bases. No wheezes rales or rhonchi. Respirations even and nonlabored. No intercostal retractions. 2L NC Abdomen/GI: Soft. Bowel sounds present in all 4 quadrants. Bowel sounds normoactive. + abdominal tenderness. : Bernabe catheter with pinkish yellow urine Musculoskeletal/ Extremities: No tenderness on muscular exam. No ecchymosis. Vascular: Radial pulses equal. 2/4. Pedal pulses 1/4 Skin: Warm and dry, No rash. Neurologic: Awake, alert and oriented times 3. Psychiatric: Tearful/Emotional Results CBC & Chem 7: 09/23/21 05:49 09/23/21 05:49 Labs: Abnormal Lab Results - Last 24 Hours (Table) 09/22/21 09/22/21 09/22/21 Range/Units 18:18 18:18 18:18 WBC 20.9 H (3.8-10.6) k/uL RBC 3.46 L (3.80-5.40) m/uL Hgb 11.0 L (11.4-16.0) gm/dL Hct (34.0-46.0) % MCV 102.3 H (80.0-100.0) fL MCHC (31.0-37.0) g/dL RDW 17.8 H (11.5-15.5) % Plt Count 516 H (150-450) k/uL Neutrophils # (Manual) 17.90 H (1.3-7.7) k/uL Monocytes # (Manual) 1.25 H (0-1.0) k/uL Macrocytosis PT 13.8 H (9.0-12.0) sec INR 1.3 H (<1.2) Sodium 127 L (137-145) mmol/L Carbon Dioxide 20 L (22-30) mmol/L BUN 26 H (7-17) mg/dL Creatinine 1.68 H (0.52-1.04) mg/dL Plasma Lactic Acid Lalit (0.7-2.0) mmol/L Calcium (8.4-10.2) mg/dL Magnesium (1.6-2.3) mg/dL Alkaline Phosphatase 137 H (38-126) U/L Total Protein 4.6 L (6.3-8.2) g/dL Albumin 2.0 L (3.5-5.0) g/dL 09/22/21 09/23/21 09/23/21 Range/Units 18:18 05:49 05:49 WBC 18.0 H (3.8-10.6) k/uL RBC 3.05 L (3.80-5.40) m/uL Hgb 9.9 L (11.4-16.0) gm/dL Hct 32.3 L (34.0-46.0) % MCV 105.7 H (80.0-100.0) fL MCHC 30.8 L (31.0-37.0) g/dL RDW 17.4 H (11.5-15.5) % Plt Count (150-450) k/uL Neutrophils # (Manual) 15.60 H (1.3-7.7) k/uL Monocytes # (Manual) (0-1.0) k/uL Macrocytosis Marked A PT (9.0-12.0) sec INR (<1.2) Sodium 128 L (137-145) mmol/L Carbon Dioxide 17 L (22-30) mmol/L BUN 27 H (7-17) mg/dL Creatinine 1.62 H (0.52-1.04) mg/dL Plasma Lactic Acid Lalit 2.4 H* (0.7-2.0) mmol/L Calcium 8.1 L (8.4-10.2) mg/dL Magnesium 1.2 L (1.6-2.3) mg/dL Alkaline Phosphatase (38-126) U/L Total Protein 4.1 L (6.3-8.2) g/dL Albumin 1.7 L (3.5-5.0) g/dL Chest x-ray: report reviewed Assessment and Plan Assessment: Reason for consult - Goals of care/Emotional support Social * Occupation - Retired, pt reports having several various jobs throughout the years * Marital status - , passed approximately 20 years ago * Children/grandchildren - 2 adult sons, 6 grandchildren * Residence - Apartment, was recently sent to [facility] for rehab * Who do you reside with - Pt lives alone * ETOH - No * Tobacco - Former * Illicit drugs - No Spiritual/Cultural * A spiritual person - Yes * Druze - Hinduism * Belong to a particular protestant - [employer] Confucianism Religious * Beliefs a source of comfort and strength - Yes * Gnosticist or cultural practices restrictions - No * EOL considerations/rituals? No Functional Assessment * Able to walk independently - No, required assistance at [facility] * Assistive devices - Walker * Able to use the bathroom independently - No * Continent - Chronic Bernabe catheter, + continent of bowels * Require assistance bathing- Yes * Able to feed self - Yes * Who prepares meals - [facility] * How many meals a day eaten - 3 * What percentage of meals eaten daily - 50-75% * Able to clean house/do laundry - [facility] * Transportation - [facility] provides some transportation/her sons * Able to shop - No * Who manages medications - [facility] * Who manages finances - Patient and her son PPS score - 40% Psychological/Emotional * Dementia present - No * Insight and judgment - Intact * Depression - No * Suicidal thoughts - No * Good support system - Yes, family * Patients goals - Comfort * Frequent hospitalizations - Yes * Desire to keep coming back to the hospital for treatment - No Plan: Symptoms * Pain - 0/10, Continue Tylenol, Neurotin, Zyloprim, and Teasdale * Fatigue - Yes, + generalized weakness * SOB - No, Continue Duoneb, Albuterol, Atrovent, Symbicort, and Singular * Insomnia - Yes, occasionally * N/V - No, Continue Zofran prn * Anxiety - Yes, Continue Xanax prn * Depression - No, Continue Cymbalta * Confusion - No * Agitation - No * Hallucinations - No * Appetite/weight loss - Decreased appetite, no recent weight loss * Dysphagia -No * Constipation - No, Continue Metamucil and colace daily, continue Fleet enema, mom, and dulcolax prn * Incontinence - No, chronic bernabe * Itch - No Summary/Goals - The patient was seen in the emergency department. Palliative care philosophies and services explained to the patient. Education provided regarding the patient's sepsis/bladder perforation. The patient stated "I am do ne. I do not want any more testing or surgery". She was reminded that she was scheduled for a cystoscopy with urology at 2pm today. She asked if she could refuse the cystoscopy. She is "sick of all the poking and prodding". She stated that it was pointless to have a cystoscopy if she did not want any surgery or treatment anyway. She stated that she has been through too much, and so has her family. Her goals are to live with the best quality of life she can for her time remaining, and for comfort. She stated that she does not want to come back to the hospital again and will "refuse to get in the ambulance". She also stated she wanted to be a DNR. Advanced directives in the EMR confirm her wishes to be a DNR. Code status changed to DNR in the EMR. The patient indicated that her oldest son, Jose, was her DPOA. He and his were contacted via telephone. They report talking to the patient last night and are in agreement with a hospice informational meeting. Dr. Kitchen notified of patient's wishes to cancel her cystoscopy. He stated that he would like to talk to the patient and then would contact urology and update on the plan of care. Awaiting Dr. Kitchen's assessment, then will consult hospice. [place], updated as well. Recommendations - Hospice informational meeting, GIP appropriate Advanced Directives - Yes, available in EMR Code Status - The patient wishes to be a DNR Thank you for this consult Belgica Resendez [facility]- Palliative Care Spectralink [phone] Email: [email or web address] Time with Patient: Greater than 30
--- NOTE | 2021-09-23 13:53 | P.HPIM ---
History of Present Illness H&P Date: 09/23/21 Chief Complaint: Tired This is a pleasant 86-year-old patient follows with Dr. Rayo at [facility]. Patient was discharged hospital 09/07/2021.. Had severe bleeding and coagu lopathy secondary to anticoagulation. Also abdominal wall and pelvic hematoma and a urinary bladder hematoma. Computed tomography scan showed contrast extravasation suspicion for perforation of the bladder. Bagley catheter placed. Blood loss anemia. Also UTI from enterococcus group D. With sepsis. History of DVT and atrial fibrillation. Multiple myeloma. Chronic diastolic CHF. Patient admitted from 09/18 through 09/21/2021. Presented with decreased urine output Bagley catheter was clogged up. Patient says she does not want any surgical intervention. Seen by Dr. johnson-urology.Urine culture came back showing Enterobacter cloacae. Discharged on Levaquin. Patient also to acute kidney injury that resolved with IV fluids. Patient now presents feeling weak and tired. Patient's was found to be in atrial fibrillation with rapid ventricular rate. Blood pressure is running low. Also patient's found to be in acute kidney injury. Creatinine is gone up. No fever. Patient started IV fluids. Feels very dry mouth. Tired. Patient does not have a bladder cystogram that was scheduled for today. Review of systems: GEN.: Tired EYES: None HEENT: None NECK: None RESPIRATORY: None CARDIOVASCULAR: None GASTROINTESTINAL: None GENITOURINARY: Bagley catheter with continuous reviewed and MUSCULOSKELETAL: Joint pains LYMPHATICS: None HEMATOLOGICAL: None PSYCHIATRY: Anxious NEUROLOGICAL: None Past medical history to include: COPD, DVT, hypertension, hyperlipidemia, osteoarthritis, rheumatoid arthritis, gout, DVT in the left upper arm, lung,, bradycardia with pacemaker, multiple myeloma, possible bladder perforation Social history: Patient smoked for about 40 years. No alcohol. Currently at [facility]. Family history: Pelvic fibrosis. Cancer Physical examination: VITAL SIGNS: 98, 95, 17, 99/67, 95% room air GENERAL:, Laying in bed awake , comfortable tired. EYES: Pupils equal. Conjunctiva normal. HEENT: External appearance of nose and ears normal, oral cavity dry NECK: JVD not raised; masses not palpable. HEART: First and second heart sounds are normal; no edema. LUNGS:[ Respiratory rate normal; decreased breath sounds. ABDOMEN: Soft, nontender, liver spleen not palpable, no masses palpable. Bagley catheter with dirty-appearing urine PSYCH: Alert and oriented x3; mood and affect anxious MUSCULOSKELETAL:No Clubbing/cyanosis;muscles-grossly intact. Evidence of OA Sacral decubitus possibly stage II INVESTIGATIONS, reviewed in the clinical context: September 23: White count 18 hemoglobin 9.9 platelets 339 sodium 128 potassium 4.5 BUN 27 creatinine 1.6 to EKG tracing personally reviewed by me-heart rate 118. Atrial fibrillation Chest x-ray film personally reviewed by me-hyperinflation. Questionable infiltrate Admission labs: White count 20.0 hemoglobin 11 platelets 516 sodium 127 potassium 4.9 BUN 26 creatinine 1.68 albumin 2 Recent admission Urine culture:Enterobacter cloacae. September 20: Potassium 3.8 creatinine 0.77 sodium 131 Assessment and plan: -Acute kidney injury patient's creatinine was 0.77 on September 20. Currently 1.6 to D5.45. -Hypotension likely precipitated by combination of dehydration and A. fib with rapid ventricular rate IV fluids -Persistent atrial fibrillation with a rapid ventricular rate on presentation. Possibly precipitated by dehydration Continue Lopressor 25 mg twice a day. Consult currently. -Chronic UTI with cystitis, secondary to Bagley catheter in a patient with recent bladder infection/perforation with hemorrhage. Recent culture positive for Enterobacter cloacae. Continue Levaquin -Recent bladder perforation with bleeding. Patient was due for a urinary bladder cystogram today. Being followed by Dr. Sarmiento. Patient does not want any more testing. Will not do any further cystogram. -Obesity BMI 35.5 Weight loss measures -Chronic medical debility Patient just about able to stand with support. -COPD in a previous smoker Symbicort 167 4.52 puffs twice a day. DuoNeb 4 times a day -Hyperlipidemia Lipitor 20 mg a day -Depression Cymbalta 60 mg daily at bedtime -Acute kidney injury, possibly prerenal/ATN. Note creatinine is gone up from a baseline. : Creatinine was 0.77. Today 1.6. -History of left upper arm DVT. Anticoagulation held because of repeated bleeding. -Rheumatoid arthritis -Essential hypertension Lopressor 25 mg twice a day -Chronic gout Allopurinol -Macrocytic anemia. Recent significant hematoma and hematuria. -Hyponatremia, from decreased oral intake. Encourage by mouth intake. Follow labs -Lactic acid from acute kidney injury. No sepsis -DO NOT RESUSCITATE Care was discussed at length with the patient. Also spoke to the patient's son Jose over the phone. Patient does not want any active invasive testing. She does want to be comfortable. It was discussed with the patient and the son the importance of IV fluids in controlling the heart rate that'll improve symptomatic treatment. Patient does not want medication or treatment to be stopped. We'll continue with Levaquin. DC cefepime. Patient is a DO NOT RESUSCITATE. Cystogram has been canceled. Cardiology has been consulted. Will continue IV fluids. Questions were answered. If that is decline or change in clinical scenario in that case hospice will become appropriate. At that time. Patient wants to eat. Discussed at length with the nurse. Past Medical History Past Medical History: Asthma, Cancer, COPD, Deep Vein Thrombosis (DVT), Hyperlipidemia, Hypertension, Osteoarthritis (OA), Rheumatoid Arthritis (RA), Skin Disorder Additional Past Medical History / Comment(s): Hx. gout, DVT L upper arm, dermatitis, bilateral glaucoma, bradycardia- pacemaker, degenerative disc disease, cervical and back pain, MULTIMYLOMA LAST TX TH, perforated bladder History of Any Multi-Drug Resistant Organisms: None Reported Past Surgical History: Adenoidectomy, Appendectomy, Cholecystectomy, Hernia Repair, Orthopedic Surgery, Pacemaker, Tonsillectomy, Tubal Ligation Additional Past Surgical History / Comment(s): Hx throat nodule removed, mole left eyelid, D&C, bilat cataracts removed . RIGHT KNEE REPLACEMENT X 2., shoulder surgeries , hiatal hernia repair, I&D L inguinal abscess, right wrist surgery Past Anesthesia/Blood Transfusion Reactions: No Reported Reaction Type of Cardiac Device: Permanent Pacemaker Device Placement Date:: October 2012 Past Psychological History: No Psychological Hx Reported Smoking Status: Former smoker Past Alcohol Use History: None Reported Past Drug Use History: None Reported - Past Family History Father Additional Family Medical History / Comment(s): Father pulmonary fibrosis Mother Family Medical History: Cancer Sister(s) Additional Family Medical History / Comment(s): melanoma Medications and Allergies Home Medications Medication Instructions Recorded Confirmed Type Bimatoprost [Lumigan 0.01% Ophth 1 drop BOTH EYES HS@199911/07/13 09/22/21 History Soln] Montelukast [Singulair] 10 mg PO HS@199911/07/13 09/22/21 History allopurinoL [Zyloprim] 100 mg PO BID@799,199907/09/14 09/22/21 History DULoxetine HCL [Cymbalta] 60 mg PO HS@199911/22/18 09/22/21 History Folic Acid 1 mg PO DAILY@79902/10/20 09/22/21 History Multivitamins, Thera [Multivitamin 1 tab PO DAILY@169902/10/20 09/22/21 History (formulary)] Nitroglycerin Sl Tabs [Nitrostat] 0.4 mg SUBLINGUAL Q5M PRN 02/10/20 09/22/21 History Atorvastatin [Lipitor] 20 mg PO DAILY@169908/31/20 09/22/21 History Metoprolol Tartrate [Lopressor] 25 mg PO BID@799,169908/31/20 09/22/21 History Acyclovir [Zovirax] 400 mg PO BID@799,199908/03/21 09/22/21 History Calcium Carbonate/Vitamin D3 1 cap PO DAILY@169908/03/21 09/22/21 History [Calcium 600 mg-D3 10 Mcg (400 Iu)] Docusate [Colace] 100 mg PO DAILY@79908/03/21 09/22/21 History Psyllium Husk 100% [Metamucil 6 gm PO DAILY@79908/03/21 09/22/21 History Packet] ondansetron HCL [Zofran] 8 mg PO Q6H PRN 08/03/21 09/22/21 History Acetaminophen Tab [Tylenol] 650 mg PO Q6HR PRN tab 08/19/21 09/22/21 Rx Albuterol Inhaler [Ventolin Hfa 2 puff INHALATION RT-Q2H PRN gm 08/19/21 09/22/21 Rx Inhaler] guaiFENesin-DM 100-10MG/5ML 10 ml PO Q6HR PRN ml 08/19/21 09/22/21 Rx [Robitussin DM] Ascorbic Acid [Vitamin C] 1,000 mg PO DAILY@169908/25/21 09/22/21 History Budesonide-Formot 160-4.5 Mcg 2 puff INHALATION RT-BID@0800,169908/25/21 09/22/21 History [Symbicort 160-4.5 Mcg Inhaler] Cholecalciferol [Vitamin D3 (125 125 mcg PO DAILY@1700 08/25/21 09/22/21 History Mcg = 5000 Iu)] Na Phos,M-B/Na Phos,Di-Ba [Fleet 133 ml RECTAL DAILY PRN 08/25/21 09/22/21 History Adult] Tiotropium 2.5 Mcg/Puff [Spiriva 2 puff INHALATION RT-DAILY@0800 08/25/21 09/22/21 History Respimat 2.5 Mcg] Zinc Gluconate [Zinc] 50 mg PO DAILY@1700 08/25/21 09/22/21 History bisacodyL [Dulcolax] 10 mg RECTAL DAILY PRN 08/25/21 09/22/21 History Albuterol Sulfate [Ventolin HFA] 2 puff INHALATION 09/18/21 09/22/21 History RT-QID@,, Loperamide [Imodium] 2 mg PO QID PRN 09/18/21 09/22/21 History Magnesium Hydroxide [Milk of 7,200 mg PO DAILY PRN 09/18/21 09/22/21 History Magnesia Concentrate] Omeprazole 20 mg PO BID@0800,1700 09/18/21 09/22/21 History ALPRAZolam [Xanax] 0.25 mg PO BID PRN #6 tab 09/21/21 09/22/21 Rx Gabapentin [Neurontin] 400 mg PO BID@0800,2100 #6 cap 09/21/21 09/22/21 Rx HYDROcodone/APAP 5-325MG [Lowland 1 tab PO Q8HR PRN #9 tab 09/21/21 09/22/21 Rx 5-325] Levofloxacin [Levaquin] 250 mg PO DAILY@0800 09/22/21 09/22/21 History Allergies Allergy/AdvReac Type Severity Reaction Status Date / Time LUNA Inhibitors AdvReac Cough Verified 09/22/21 22:30 IV STEROIDS Allergy Itching Uncoded 09/22/21 18:19 tape Allergy Unknown Uncoded 09/22/21 18:19 Physical Exam Vitals: Vital Signs Temp Pulse Resp BP Pulse Ox 09/23/21 10:30 101 H 18 80/50 09/23/21 08:13 97.7 F 99 20 71/54 97 09/23/21 06:00 103 H 16 73/44 100 09/23/21 05:00 98 16 88/62 100 09/23/21 04:00 99 23 71/42 98 09/23/21 03:00 103 H 16 80/43 100 09/23/21 02:00 103 H 24 75/41 100 09/23/21 01:00 105 H 16 77/44 97 09/23/21 00:55 105 H 18 80/48 99 09/23/21 00:40 104 H 09/23/21 00:29 101 H 09/22/21 19:18 98 20 85/46 99 09/22/21 18:50 126 H 18 72/48 97 09/22/21 18:08 99.0 F 118 H 18 78/46 93 L Intake and Output 09/22/21 09/23/21 09/23/21 22:59 06:59 14:59 Output Total 500 200 Balance -500 -200 Output: Urine 500 200 Other: Weight 99.79 kg Results CBC & Chem 7: 09/23/21 05:49 09/23/21 05:49 Labs: Abnormal Lab Results - Last 24 Hours (Table) 09/22/21 09/22/21 09/22/21 Range/Units 18:18 18:18 18:18 WBC 20.9 H (3.8-10.6) k/uL RBC 3.46 L (3.80-5.40) m/uL Hgb 11.0 L (11.4-16.0) gm/dL Hct (34.0-46.0) % MCV 102.3 H (80.0-100.0) fL MCHC (31.0-37.0) g/dL RDW 17.8 H (11.5-15.5) % Plt Count 516 H (150-450) k/uL Neutrophils # (Manual) 17.90 H (1.3-7.7) k/uL Monocytes # (Manual) 1.25 H (0-1.0) k/uL Macrocytosis PT 13.8 H (9.0-12.0) sec INR 1.3 H (<1.2) Sodium 127 L (137-145) mmol/L Carbon Dioxide 20 L (22-30) mmol/L BUN 26 H (7-17) mg/dL Creatinine 1.68 H (0.52-1.04) mg/dL Plasma Lactic Acid Lalit (0.7-2.0) mmol/L Calcium (8.4-10.2) mg/dL Magnesium (1.6-2.3) mg/dL Alkaline Phosphatase 137 H (38-126) U/L Total Protein 4.6 L (6.3-8.2) g/dL Albumin 2.0 L (3.5-5.0) g/dL 09/22/21 09/23/21 09/23/21 Range/Units 18:18 05:49 05:49 WBC 18.0 H (3.8-10.6) k/uL RBC 3.05 L (3.80-5.40) m/uL Hgb 9.9 L (11.4-16.0) gm/dL Hct 32.3 L (34.0-46.0) % MCV 105.7 H (80.0-100.0) fL MCHC 30.8 L (31.0-37.0) g/dL RDW 17.4 H (11.5-15.5) % Plt Count (150-450) k/uL Neutrophils # (Manual) 15.60 H (1.3-7.7) k/uL Monocytes # (Manual) (0-1.0) k/uL Macrocytosis Marked A PT (9.0-12.0) sec INR (<1.2) Sodium 128 L (137-145) mmol/L Carbon Dioxide 17 L (22-30) mmol/L BUN 27 H (7-17) mg/dL Creatinine 1.62 H (0.52-1.04) mg/dL Plasma Lactic Acid Lalit 2.4 H* (0.7-2.0) mmol/L Calcium 8.1 L (8.4-10.2) mg/dL Magnesium 1.2 L (1.6-2.3) mg/dL Alkaline Phosphatase (38-126) U/L Total Protein 4.1 L (6.3-8.2) g/dL Albumin 1.7 L (3.5-5.0) g/dL
[2021-09-23] MEDS: DEXTROSE 5%-0.45% NACL 1,000 ML IV SCH ×2 (15:51→20:50)
[2021-09-23] MEDS: IPRATROPIUM 0.5 MG/2.5 ML NEBU INHALATION SCH ×2 (16:30→20:49)
[2021-09-23] MEDS: SYMBICORT 160-4.5 MCG INHALER INHALATION SCH ×2 (16:30→19:58)
[2021-09-23] MEDS: IPRATROPIUM-ALBUTEROL 3 ML NEB INHALATION SCH ×3 (16:31→19:58)
[2021-09-23] MEDS: CALCIUM CARB-VIT D 500 MG-5 MCG TAB PO SCH (17:34)
[2021-09-23] MEDS: ATORVASTATIN 20 MG TAB PO SCH (17:35)
[2021-09-23] MEDS: CHOLECALCIFEROL 125 MCG (5000 IU) TABLET PO SCH (17:35)
[2021-09-23] MEDS: ASCORBIC ACID 500 MG TAB PO SCH (17:35)
[2021-09-23] MEDS: MULTIVITAMINS, THERA 1 EACH TAB PO SCH (17:35)
[2021-09-23] MEDS: DULoxetine HCL 60 MG CAPSULE.DR PO SCH (20:43)
[2021-09-23] MEDS: MAGNESIUM OXIDE 400 MG TAB PO SCH (20:43)
[2021-09-23] MEDS: MONTELUKAST 10 MG TAB PO SCH (20:44)
[2021-09-23] MEDS: ACYCLOVIR 200 MG CAP PO SCH (20:44)
[2021-09-23] MEDS: ACETAMINOPHEN TAB 325 MG TAB PO PRN (20:44)
[2021-09-23] MEDS: LATANOPROST 0.005% OPHTH DROPS 2.5 ML BTL BOTH EYES SCH (20:45)
[2021-09-24] MEDS: DEXTROSE 5%-0.45% NACL 1,000 ML IV SCH (05:33)
[2021-09-24] MEDS: IPRATROPIUM-ALBUTEROL 3 ML NEB INHALATION SCH ×4 (09:02→20:07)
[2021-09-24] MEDS: SYMBICORT 160-4.5 MCG INHALER INHALATION SCH ×2 (09:02→20:07)
[2021-09-24] MEDS: FOLIC ACID 1 MG TAB PO SCH (09:33)
[2021-09-24] MEDS: PANTOPRAZOLE 40 MG TABLET PO SCH ×2 (09:33→18:13)
[2021-09-24] MEDS: METOPROLOL TARTRATE 25 MG TAB PO SCH ×2 (09:34→18:13)
[2021-09-24] MEDS: allopurinoL 100 MG TAB PO SCH ×2 (09:34→19:59)
[2021-09-24] MEDS: DOCUSATE 100 MG CAP PO SCH (09:34)
[2021-09-24] MEDS: HYDROcodone/APAP 5-325MG 1 EACH TAB PO PRN ×2 (09:35→21:30)
[2021-09-24] MEDS: ACYCLOVIR 200 MG CAP PO SCH ×2 (09:35→19:59)
[2021-09-24] MEDS: MAGNESIUM OXIDE 400 MG TAB PO SCH ×2 (09:35→19:59)
[2021-09-24] MEDS: ENOXAPARIN 30 MG/0.3 ML SYRINGE SQ SCH (09:36)
[2021-09-24] MEDS: PSYLLIUM HUSK 100% 6 GM PACKET PO SCH (09:37)
[2021-09-24 10:05] LABS: Anisocytosis Slight; HCT 31.2 % (34.0-46.0); HGB 9.5 gm/dL (11.4-16.0); Hypochromasia Marked; MCHC 30.5 g/dL (31.0-37.0); MCV 105.1 fL (80.0-100.0); Macrocytosis Marked; Mean Platelet Volume 8.1; Platelet Count 297 k/uL (150-450); RBC 2.97 m/uL (3.80-5.40); RDW 17.1 % (11.5-15.5); WBC 20.8 k/uL (3.8-10.6)
[2021-09-24 10:38] LABS: Albumin 1.5 g/dL (3.5-5.0); Magnesium 1.2 mg/dL (1.6-2.3); Potassium 4.1 mmol/L (3.5-5.1); Total Bilirubin 0.2 mg/dL (0.2-1.3); Total Protein 3.7 g/dL (6.3-8.2)
--- NOTE | 2021-09-24 11:56 | P.PN ---
Subjective Progress Note Date: 09/24/21 Principal diagnosis: UTI This is an 86-year-old female with a pmh significant for CHF, COPD, Afib, multiple myeloma, and a DVT. She presented to the emergency department on 09/22/21 with hematuria. Patient has a known bladder perforation and was discharged from this facility yesterday after a 3 day admission for sepsis, a UTI, and acute on chronic kidney injury. She was discharged on a course of Levaquin. Urine culture was positive for enterobactor cloacae and the bacteria was found to be sensitive to the Levaquin. Patient has been taking this as prescribed since discharge. She is still residing at [facility] and was found to have bc hematuria in the catheter this morning. She was also said to be hypotensive by the staff at [facility] as well as in the ED. Blood cultures obtained and patient started on IV cefepime based on sensitivity from the urine culture. 09/23 The patient was seen in the emergency department. Palliative care philosophies and services explained to the patient. Education provided regarding the patient's sepsis/bladder perforation. The patient stated "I am done. I do not want any more testing or surgery". She was reminded that she was scheduled for a cystoscopy with urology at 2pm today. She asked if she could refuse the cystoscopy. She is "sick of all the poking and prodding". She stated that it was pointless to have a cystoscopy if she did not want any surgery or treatment anyway. She stated that she has been through too much, and so has her family. Her goals are to live with the best quality of life she can for her time remaining, and for comfort. She stated that she does not want to come back to the hospital again and will "refuse to get in the ambulance". She also stated she wanted to be a DNR. Advanced directives in the EMR confirm her wishes to be a DNR. Code status changed to DNR in the EMR. The patient indicated that her oldest son, Jose, was her DPOA. He and his were contacted via telephone. They report talking to the patient last night and are in agreement with a hospice informational meeting. Dr. Kitchen notified of patient's wishes to cancel her cystoscopy. He stated that he would like to talk to the patient and then would contact urology and update on the plan of care. Awaiting Dr. Kitchen's assessment, then will consult hospice. [place], updated as well. Objective - Vital Signs Vital signs: Vital Signs Temp 97.5 F L 09/24/21 03:33 Pulse 95 09/24/21 09:17 Resp 14 09/24/21 03:33 BP 80/38 09/24/21 03:33 Pulse Ox 93 L 09/24/21 09:03 FiO2 Intake & Output 09/23/21 09/24/21 09/24/21 18:59 06:59 18:59 Intake Total 540 Output Total 200 420 Balance -200 120 Weight 99.79 kg Intake: Oral 540 Output: Urine 200 420 Other: Voiding Method Indwelling Catheter # Bowel Movements 1 - Exam General: Patient awake alert and oriented x 3. No acute distress. HEENT: Head is atraumatic, normocephalic Neck is supple. Sclerae are clear. Pupils equal, round and reactive to light bilaterally. CV: Heart irregular in rate and rhythm positive S1 and S2. No clicks, rubs or murmurs. No JVD. Lungs: Diminished bases. No wheezes rales or rhonchi. Respirations even and nonlabored. No intercostal retractions. 2L NC Abdomen/GI: Soft. Bowel sounds present in all 4 quadrants. Bowel sounds normoactive. + abdominal tenderness. : Bernabe catheter Musculoskeletal/ Extremities: No tenderness on muscular exam. No ecchymosis. + genrealized weakness Vascular: Radial pulses equal. 2/4. Pedal pulses 1/4 Skin: Warm and dry, No rash. Neurologic: Awake, alert and oriented times 3. Psychiatric: Tearful/Emotional - Labs CBC & Chem 7: 09/24/21 09:47 09/24/21 09:47 Labs: Microbiology - Last 24 Hours (Table) 09/22/21 21:04 Blood Culture - Preliminary Blood No Growth after 24 hours 09/22/21 21:09 Blood Culture - Preliminary Blood No Growth after 24 hours Assessment and Plan Assessment: Symptoms * Pain - 8/10 back pain, Continue Tylenol, Neurotin, Zyloprim, and Brunswick * Fatigue - Yes, + generalized weakness * SOB - No, Continue Duoneb, Albuterol, Atrovent, Symbicort, and Singular * Insomnia - Yes, occasionally * N/V - No, Continue Zofran prn * Anxiety - Yes, Continue Xanax prn * Depression - No, Continue Cymbalta * Confusion - No * Agitation - No * Hallucinations - No * Appetite/weight loss - Decreased appetite, no recent weight loss, continue chopped diet * Dysphagia -No * Constipation - No, Continue Metamucil and colace daily, continue Fleet enema, mom, and dulcolax prn, LBM 09/23 * Incontinence - No, bernabe * Itch - No Plan: Summary/Goals - The patient is resting in bed and is tearful stating her back is hurting terribly. RN notified that patient requesting a Brunswick and to be repositioned. The patient stated she is in too much pain and too tired to eat her breakfast. She remains hypotensive, 80/38, despite fluid resuscitation. monitor technician show A fib at 94 bpm. She also stated that she spoke to her sons again yesterday and nothing has changed. She still wants to remain a DNR. She does not want any more treatment or surgery. She also does not want to come back and forth to the hospital anymore. "I've been through too much". Attempted to call her son, Jose, but he did not answer. Left message, awaiting call back. Recommendations - Hospice informational meeting Advanced Directives - Yes, available in EMR Code Status - The patient wishes to be a DNR Thank you for this consult Belgica Resendez [facility] [id number] Email: [email or web address] Time with Patient: Less than 30
--- NOTE | 2021-09-24 11:59 | P.CRDCN ---
History of Present Illness Consult date: 09/24/21 History of present illness: HISTORY OF PRESENT ILLNESS: This is a 86 year female with a past medical history significant for paroxysmal atrial fibrillation, hypertension, hyperlipidemia, permanent pacemaker, COPD, and DVT. Patient follows in the office with Dr. Trotter. We have been asked to see the patient in consultation for atrial fibrillation. Patient examined at the bedside. Patient was brought to the hospital from [facility] secondary to dimple turia. The patient was recently hospitalized secondary to sepsis, UTI, and bladder perforation. The patient barely does not want any further procedures to be performed with urology. Patient denies any chest pain or pressure. She denies shortness of breath. She is hypotensive this morning. She does report dizziness at the time of examination. Telemetry reveals atrial fibrillation with controlled ventricular rate. * EKG reveals atrial fibrillation with mild RVR with a heart rate of 118. * Chest xray some interstitial infiltrates and atelectasis at the lung bases. This appears increased compared to old exam. No obvious heart failure. * Laboratory data: WBC 20.8. Hemoglobin 9.5. Platelet count 297. Sodium 127. Potassium 4.1. BUN 31. Creatinine 1.54. ProBNP 11,900. * Current home cardiac medications include Lipitor 20 mg daily, metoprolol tartrate 25 mg twice a day * Most recent echocardiogram obtained in August 2021 revealed ejection fraction 50- 55% with moderate to severe mitral regurgitation * Cardiac catheterization history: 2018 revealing minimal CAD. REVIEW OF SYSTEMS: At the time of my exam: CONSTITUTIONAL: Denies fever or chills. HEENT: Denies blurred vision, vision changes, or eye pain. Denies hemoptysis CARDIOVASCULAR: Denies chest pain. Denies orthopnea. Denies PND. Denies palpitations RESPIRATORY: Denies shortness of breath. GASTROINTESTINAL: Denies abdominal pain. Denies nausea or vomiting. HEMATOLOGIC: Denies bleeding disorders. GENITOURINARY: Denies any blood in urine. SKIN: Denies pruitis. Denies rash. PHYSICAL EXAM: VITAL SIGNS: Reviewed. GENERAL: Well-developed in no acute distress. HEENT: Head is normocephalic. Pupils are equal, round. Sclerae anicteric. Mucous membranes of the mouth are moist. Neck supple. No JVD or thyromegaly LUNGS: Respirations even and unlabored. Lungs essentially clear to auscultation bilaterally. HEART: Irregular rate and rhythm. S1 and S2 heard. Systolic murmur noted. ABDOMEN: Soft. Nondistended. Nontender. EXTREMITIES: Normal range of motion. No clubbing or cyanosis. Peripheral pulses intact. Trace lower extremity edema NEUROLOGIC: Awake and alert. Oriented x 3. ASSESSMENT: Hematuria with recent bladder perforation Hypotension Acute kidney injury Chronic UTI Paroxysmal atrial fibrillation with RVR, currently rate controlled, not on anticoagulation secondary to bleeding Recent hospitalization secondary to abdominal wall/pelvic hematoma Hypertension Hyperlipidemia History of pacemaker insertion COPD PLAN: No need to repeat echocardiogram as this was performed last month Continue current dose of metoprolol Continue telemetry monitoring Add Midodrine 5mg TID. Monitor blood pressure Further recommendations pending patient course Nurse practitioner note has been reviewed by physician. Signing provider agrees with the documented findings, assessment, and plan of care. Past Medical History Past Medical History: Asthma, Cancer, COPD, Deep Vein Thrombosis (DVT), Hyperlipidemia, Hypertension, Osteoarthritis (OA), Rheumatoid Arthritis (RA), Skin Disorder Additional Past Medical History / Comment(s): Hx. gout, DVT L upper arm, dermatitis, bilateral glaucoma, bradycardia- pacemaker, degenerative disc disease, cervical and back pain, MULTIMYLOMA LAST TX THURS, perforated bladder History of Any Multi-Drug Resistant Organisms: None Reported Past Surgical History: Adenoidectomy, Appendectomy, Cholecystectomy, Hernia Repair, Orthopedic Surgery, Pacemaker, Tonsillectomy, Tubal Ligation Additional Past Surgical History / Comment(s): Hx throat nodule removed, mole left eyelid, D&C, bilat cataracts removed . RIGHT KNEE REPLACEMENT X 2., shoulder surgeries , hiatal hernia repair, I&D L inguinal abscess, right wrist surgery Past Anesthesia/Blood Transfusion Reactions: No Reported Reaction Type of Cardiac Device: Permanent Pacemaker Device Placement Date:: October 2012 Past Psychological History: No Psychological Hx Reported Additional Psychological History / Comment(s): . Smoking Status: Former smoker Past Alcohol Use History: None Reported Additional Past Alcohol Use History / Comment(s): Pt states she started smoking in her teens and quit in 1989 Past Drug Use History: None Reported - Past Family History Father Additional Family Medical History / Comment(s): Father pulmonary fibrosis Mother Family Medical History: Cancer Sister(s) Additional Family Medical History / Comment(s): melanoma Medications and Allergies Home Medications Medication Instructions Recorded Confirmed Type Bimatoprost [Lumigan 0.01% Ophth 1 drop BOTH EYES HS@199911/07/13 09/22/21 History Soln] Montelukast [Singulair] 10 mg PO HS@199911/07/13 09/22/21 History allopurinoL [Zyloprim] 100 mg PO BID@08,199907/09/14 09/22/21 History DULoxetine HCL [Cymbalta] 60 mg PO HS@199911/22/18 09/22/21 History Folic Acid 1 mg PO DAILY@0802/10/20 09/22/21 History Multivitamins, Thera [Multivitamin 1 tab PO DAILY@169902/10/20 09/22/21 History (formulary)] Nitroglycerin Sl Tabs [Nitrostat] 0.4 mg SUBLINGUAL Q5M PRN 02/10/20 09/22/21 History Atorvastatin [Lipitor] 20 mg PO DAILY@169908/31/20 09/22/21 History Metoprolol Tartrate [Lopressor] 25 mg PO BID@0800,169908/31/20 09/22/21 History Acyclovir [Zovirax] 400 mg PO BID@08,199908/03/21 09/22/21 History Calcium Carbonate/Vitamin D3 1 cap PO DAILY@169908/03/21 09/22/21 History [Calcium 600 mg-D3 10 Mcg (400 Iu)] Docusate [Colace] 100 mg PO DAILY@79908/03/21 09/22/21 History Psyllium Husk 100% [Metamucil 6 gm PO DAILY@79908/03/21 09/22/21 History Packet] ondansetron HCL [Zofran] 8 mg PO Q6H PRN 08/03/21 09/22/21 History Acetaminophen Tab [Tylenol] 650 mg PO Q6HR PRN tab 08/19/21 09/22/21 Rx Albuterol Inhaler [Ventolin Hfa 2 puff INHALATION RT-Q2H PRN gm 08/19/21 09/22/21 Rx Inhaler] guaiFENesin-DM 100-10MG/5ML 10 ml PO Q6HR PRN ml 08/19/21 09/22/21 Rx [Robitussin DM] Ascorbic Acid [Vitamin C] 1,000 mg PO DAILY@1700 08/25/21 09/22/21 History Budesonide-Formot 160-4.5 Mcg 2 puff INHALATION RT-BID@0800,1700 08/25/21 09/22/21 History [Symbicort 160-4.5 Mcg Inhaler] Cholecalciferol [Vitamin D3 (125 125 mcg PO DAILY@1700 08/25/21 09/22/21 History Mcg = 5000 Iu)] Na Phos,M-B/Na Phos,Di-Ba [Fleet 133 ml RECTAL DAILY PRN 08/25/21 09/22/21 History Adult] Tiotropium 2.5 Mcg/Puff [Spiriva 2 puff INHALATION RT-DAILY@0800 08/25/21 09/22/21 History Respimat 2.5 Mcg] Zinc Gluconate [Zinc] 50 mg PO DAILY@0 08/25/21 09/22/21 History bisacodyL [Dulcolax] 10 mg RECTAL DAILY PRN 08/25/21 09/22/21 History Albuterol Sulfate [Ventolin HFA] 2 puff INHALATION 09/18/21 09/22/21 History RT-QID@ Loperamide [Imodium] 2 mg PO QID PRN 09/18/21 09/22/21 History Magnesium Hydroxide [Milk of 7,200 mg PO DAILY PRN 09/18/21 09/22/21 History Magnesia Concentrate] Omeprazole 20 mg PO BID@0800,1700 09/18/21 09/22/21 History ALPRAZolam [Xanax] 0.25 mg PO BID PRN #6 tab 09/21/21 09/22/21 Rx Gabapentin [Neurontin] 400 mg PO BID@0800,2100 #6 cap 09/21/21 09/22/21 Rx HYDROcodone/APAP 5-325MG [[place] 1 tab PO Q8HR PRN #9 tab 09/21/21 09/22/21 Rx 5-325] Levofloxacin [Levaquin] 250 mg PO DAILY@0800 09/22/21 09/22/21 History Allergies Allergy/AdvReac Type Severity Reaction Status Date / Time LUNA Inhibitors AdvReac Cough Verified 09/22/21 22:30 IV STEROIDS Allergy Itching Uncoded 09/22/21 18:19 tape Allergy Unknown Uncoded 09/22/21 18:19 Physical Exam Vitals: Vital Signs Temp Pulse Pulse Resp BP BP Pulse Ox 09/24/21 09:17 95 09/24/21 09:03 100 93 L 09/24/21 08:00 97.4 F L 90 16 94/60 98 09/24/21 03:33 97.5 F L 94 14 80/38 96 09/23/21 23:29 98.3 F 92 15 80/40 96 09/23/21 19:51 98.1 F 89 14 80/42 93 L 09/23/21 17:02 96 09/23/21 16:49 92 09/23/21 14:00 96 16 85/60 99 09/23/21 13:00 97 21 78/51 99 09/23/21 12:00 96 20 93/50 Intake and Output 09/23/21 09/24/21 09/24/21 22:59 06:59 14:59 Intake Total 540 180 Output Total 300 120 Balance 240 -120 180 Intake: Oral 540 180 Output: Urine 300 120 Other: Voiding Method Indwelling Catheter Indwelling Catheter Indwelling Catheter # Bowel Movements 1 Weight 99.79 kg Results 09/24/21 09:47 09/24/21 09:47 Cardiac Enzymes 09/24/21 Range/Units 09:47 AST 24 (14-36) U/L CBC 09/24/21 Range/Units 09:47 WBC 20.8 H (3.8-10.6) k/uL RBC 2.97 L (3.80-5.40) m/uL Hgb 9.5 L (11.4-16.0) gm/dL Hct 31.2 L (34.0-46.0) % Plt Count 297 (150-450) k/uL Comprehensive Metabolic Panel 09/24/21 Range/Units 09:47 Sodium 127 L (137-145) mmol/L Potassium 4.1 (3.5-5.1) mmol/L Chloride 105 (98-107) mmol/L Carbon Dioxide 15 L (22-30) mmol/L BUN 31 H (7-17) mg/dL Creatinine 1.54 H (0.52-1.04) mg/dL Glucose 121 H (74-99) mg/dL Calcium 8.0 L (8.4-10.2) mg/dL AST 24 (14-36) U/L ALT 14 (4-34) U/L Alkaline Phosphatase 125 (38-126) U/L Total Protein 3.7 L (6.3-8.2) g/dL Albumin 1.5 L (3.5-5.0) g/dL Current Medications Generic Name Dose Route Start Last Admin Trade Name Freq PRN Reason Stop Dose Admin Acetaminophen 650 mg 09/23/21 10:39 09/23/21 20:44 Acetaminophen Tab 325 Mg Tab PO 650 mg Q6HR PRN Administration Mild Pain or Fever > 100.5 Hydrocodone Bitart/Acetaminophen 1 each 09/23/21 10:39 09/24/21 09:35 Hydrocodone/Apap 5-325mg 1 Each Tab PO 1 each Q8HR PRN Administration Pain Acyclovir 400 mg 09/23/21 20:00 09/24/21 09:35 Acyclovir 200 Mg Cap PO 400 mg BID@0800,1999 [facility] Administration Albuterol/Ipratropium 3 ml 09/22/21 23:44 Ipratropium-Albuterol 3 Ml Neb INHALATION RT-QID PRN Shortness Of Breath Or Wheezing Albuterol/Ipratropium 3 ml 09/23/21 13:47 09/24/21 09:02 Ipratropium-Albuterol 3 Ml Neb INHALATION 3 ml RT-QID SUBHASH Administration Allopurinol 100 mg 09/23/21 10:39 09/24/21 09:34 Allopurinol 100 Mg Tab PO 100 mg BID@0800,1999 [facility] Administration Alprazolam 0.25 mg 09/23/21 10:39 Alprazolam 0.25 Mg Tab PO BID PRN Anxiety Ascorbic Acid 1,000 mg 09/23/21 17:00 09/23/21 17:35 Ascorbic Acid 500 Mg Tab PO 1,000 mg DAILY@1700 [facility] Administration Atorvastatin Calcium 20 mg 09/23/21 17:00 09/23/21 17:35 Atorvastatin 20 Mg Tab PO 20 mg DAILY@1700 [facility] Administration Bisacodyl 10 mg 09/23/21 10:39 Bisacodyl 10 Mg Supp RECTAL DAILY PRN Constipation Budesonide/Formoterol Fumarate 2 puff 09/23/21 10:39 09/24/21 09:02 Symbicort 160-4.5 Mcg Inhaler INHALATION 2 puff RT-BID@0800,1700 [facility] Administration Calcium Carbonate 1 each 09/23/21 17:00 09/23/21 17:34 Calcium Carb-Vit D 500 Mg-5 Mcg Tab PO 1 each DAILY@1700 [facility] Administration Cholecalciferol 125 mcg 09/23/21 17:00 09/23/21 17:35 Cholecalciferol 125 Mcg (5000 Iu) Tablet PO 125 mcg DAILY@1700 [facility] Administration Docusate Sodium 100 mg 09/24/21 08:00 09/24/21 09:34 Docusate 100 Mg Cap PO 100 mg DAILY@08 [facility] Administration Duloxetine HCl 60 mg 09/23/21 20:00 09/23/21 20:43 Duloxetine Hcl 60 Mg Capsule.Dr PO 60 mg HS@1999 [facility] Administration Enoxaparin Sodium 30 mg 09/23/21 10:45 09/24/21 09:36 Enoxaparin 30 Mg/0.3 Ml Syringe SQ 30 mg DAILY [facility] Administration Folic Acid 1 mg 09/23/21 08:00 09/24/21 09:33 Folic Acid 1 Mg Tab PO 1 mg DAILY@0800 [facility] Administration Gabapentin 400 mg 09/24/21 21:00 Gabapentin 400 Mg Cap PO [facility] Guaifenesin/Dextromethorphan 10 ml 09/23/21 10:39 Guaifenesin-Dm 100-10mg/5ml 10 Ml Cup PO Q6HR PRN Cough Dextrose/Sodium Chloride 1,000 mls @ 100 mls/hr 09/23/21 12:45 09/24/21 05:33 Dextrose 5%-1/2ns Iv Soln IV 100 mls/hr .Q10H [facility] Administration Latanoprost 1 drops 09/23/21 20:00 09/23/21 20:45 Latanoprost 0.005% Ophth Drops 2.5 Ml Btl BOTH EYES 1 drops HS@1999 [facility] Administration Levofloxacin 250 mg 09/23/21 08:00 09/23/21 11:10 Levofloxacin 250 Mg Tab PO Not Given DAILY@0800 [facility] Protocol Loperamide HCl 2 mg 09/23/21 10:39 Loperamide 2 Mg Cap PO QID PRN LOOSE STOOLS Magnesium Hydroxide 2,400 mg 09/23/21 10:39 Magnesium Hydroxide 2,400 Mg/10 Ml Cup PO DAILY PRN Constipation Magnesium Oxide 200 mg 09/23/21 21:00 09/24/21 09:35 Magnesium Oxide 400 Mg Tab PO 200 mg BID [facility] Administration Metoprolol Tartrate 25 mg 09/23/21 10:39 09/24/21 09:34 Metoprolol Tartrate 25 Mg Tab PO 25 mg BID@0800,1700 [facility] Administration Midodrine 5 mg 09/24/21 12:30 Midodrine 5 Mg Tab PO AC-TID [facility] Montelukast Sodium 10 mg 09/23/21 20:00 09/23/21 20:44 Montelukast 10 Mg Tab PO 10 mg HS@1999 [facility] Administration Multivitamins 1 each 09/23/21 17:00 09/23/21 17:35 Multivitamins, Thera 1 Each Tab PO 1 each DAILY@170 [facility] Administration Naloxone HCl 0.2 mg 09/22/21 23:00 Naloxone 0.4 Mg/Ml 1 Ml Vial IV Q2M PRN Opioid Reversal Nitroglycerin 0.4 mg 09/23/21 10:39 Nitroglycerin Sl Tabs 0.4 Mg Tab SUBLINGUAL Q5M PRN Chest Pain Ondansetron HCl 4 mg 09/22/21 23:00 Ondansetron 4 Mg/2 Ml Vial IVP Q8HR PRN Nausea And Vomiting Ondansetron HCl 8 mg 09/23/21 10:39 Ondansetron 4 Mg Tab PO Q6H PRN Nausea Pantoprazole Sodium 40 mg 09/23/21 10:39 09/24/21 09:33 Pantoprazole 40 Mg Tablet PO 40 mg BID@0800,1700 [facility] Administration Psyllium Hydrophilic Mucilloid 6 gm 09/24/21 08:00 09/24/21 09:37 Psyllium Husk 100% 6 Gm Packet PO Not Given DAILY@0800 [facility] Sodium Biphosphate/Sodium Phosphate 133 ml 09/23/21 10:39 Na Phos,M-B/Na Phos,Di-Ba 133 Ml Enema RECTAL DAILY PRN Constipation Intake and Output 09/23/21 09/24/21 09/24/21 22:59 06:59 14:59 Intake Total 540 180 Output Total 300 120 Balance 240 -120 180 Intake: Oral 540 180 Output: Urine 300 120 Other: Voiding Method Indwelling Catheter Indwelling Catheter Indwelling Catheter # Bowel Movements 1 Weight 99.79 kg 09/24/21 09:47 09/24/21 09:47
--- NOTE | 2021-09-24 12:10 | P.PN ---
Progress Note - Text Progress Note Date: 09/24/21 Chief Complaint: Tired This is a pleasant 86-year-old patient follows with Dr. Rayo at [facility]. Patient was discharged hospital 09/07/2021.. Had severe bleeding and coagulopathy secondary to anticoagulation. Also abdominal wall and pelvic hematoma and a urinary bladder hematoma. Computed tomography scan showed contrast extravasation suspicion for perforation of the bladder. Bagley catheter placed. Blood loss anemia. Also UTI from enterococcus group D. With sepsis. History of DVT and atrial fibrillation. Multiple myeloma. Chronic diastolic CHF. Patient admitted from 09/18 through 09/21/2021. Presented with decreased urine output Bagley catheter was clogged up. Patient says she does not want any surgical intervention. Seen by Dr. johnson-urology.Urine culture came back showing Enterobacter cloacae. Discharged on Levaquin. Patient also to acute kidney injury that resolved with IV fluids. Patient now presents feeling weak and tired. Patient's was found to be in atrial fibrillation with rapid ventricular rate. Blood pressure is running low. Also patient's found to be in acute kidney injury. Creatinine is gone up. No fever. Patient started IV fluids. Feels very dry mouth. Tired. Patient does not want to have a bladder cystogram that was scheduled for today. Admitted with acute kidney injury. Atrial fibrillation uncontrolled. Started IV fluids. Lopressor continued. September 24: Tired. Diet was discussed with the patient. We'll start the patient on a bicarbonate drip for metabolic acidosis. Discussed with patient. Did give the option of patient of the bladder cystogram in case she wants to Bagley catheter to be out as this was discussed with Dr. Sarmiento yesterday. Currently no further intervention. Active Medications Acetaminophen (Acetaminophen Tab 325 Mg Tab) 650 mg PO Q6HR PRN PRN Reason: Mild Pain or Fever > 100.5 Last Admin: 09/23/21 20:44 Dose: 650 mg Hydrocodone Bitart/Acetaminophen (Hydrocodone/Apap 5-325mg 1 Each Tab) 1 each PO Q8HR PRN PRN Reason: Pain Last Admin: 09/24/21 09:35 Dose: 1 each Acyclovir (Acyclovir 200 Mg Cap) 400 mg PO BID@0800,2000 [facility] Last Admin: 09/24/21 09:35 Dose: 400 mg Albuterol/Ipratropium (Ipratropium-Albuterol 3 Ml Neb) 3 ml INHALATION RT-QID PRN PRN Reason: Shortness Of Breath Or Wheezing Albuterol/Ipratropium (Ipratropium-Albuterol 3 Ml Neb) 3 ml INHALATION RT-QID [facility] Last Admin: 09/24/21 09:02 Dose: 3 ml Allopurinol (Allopurinol 100 Mg Tab) 100 mg PO BID@0800,1999 [facility] Last Admin: 09/24/21 09:34 Dose: 100 mg Alprazolam (Alprazolam 0.25 Mg Tab) 0.25 mg PO BID PRN PRN Reason: Anxiety Ascorbic Acid (Ascorbic Acid 500 Mg Tab) 1,000 mg PO DAILY@1699 [facility] Last Admin: 09/23/21 17:35 Dose: 1,000 mg Atorvastatin Calcium (Atorvastatin 20 Mg Tab) 20 mg PO DAILY@1699 [facility] Last Admin: 09/23/21 17:35 Dose: 20 mg Bisacodyl (Bisacodyl 10 Mg Supp) 10 mg RECTAL DAILY PRN PRN Reason: Constipation Budesonide/Formoterol Fumarate (Symbicort 160-4.5 Mcg Inhaler) 2 puff INHALATION RT-BID@0800,1700 [facility] Last Admin: 09/24/21 09:02 Dose: 2 puff Calcium Carbonate (Calcium Carb-Vit D 500 Mg-5 Mcg Tab) 1 each PO DAILY@1700 [facility] Last Admin: 09/23/21 17:34 Dose: 1 each Cholecalciferol (Cholecalciferol 125 Mcg (5000 Iu) Tablet) 125 mcg PO DAILY@1700 [facility] Last Admin: 09/23/21 17:35 Dose: 125 mcg Docusate Sodium (Docusate 100 Mg Cap) 100 mg PO DAILY@0800 [facility] Last Admin: 09/24/21 09:34 Dose: 100 mg Duloxetine HCl (Duloxetine Hcl 60 Mg Capsule.Dr) 60 mg PO HS@1999 [facility] Last Admin: 09/23/21 20:43 Dose: 60 mg Enoxaparin Sodium (Enoxaparin 30 Mg/0.3 Ml Syringe) 30 mg SQ DAILY [facility] Last Admin: 09/24/21 09:36 Dose: 30 mg Folic Acid (Folic Acid 1 Mg Tab) 1 mg PO DAILY@0800 [facility] Last Admin: 09/24/21 09:33 Dose: 1 mg Gabapentin (Gabapentin 400 Mg Cap) 400 mg PO [facility] Guaifenesin/Dextromethorphan (Guaifenesin-Dm 100-10mg/5ml 10 Ml Cup) 10 ml PO Q6HR PRN PRN Reason: Cough Sodium Bicarbonate 100 ml/ (Dextrose/Water) 1,100 mls @ 100 mls/hr IV .Q11H [facility] Latanoprost (Latanoprost 0.005% Ophth Drops 2.5 Ml Btl) 1 drops BOTH EYES HS@1999 [facility] Last Admin: 09/23/21 20:45 Dose: 1 drops Levofloxacin (Levofloxacin 250 Mg Tab) 250 mg PO DAILY@0800 [facility]; Protocol Last Admin: 09/23/21 11:10 Dose: Not Given Loperamide HCl (Loperamide 2 Mg Cap) 2 mg PO QID PRN PRN Reason: LOOSE STOOLS Magnesium Hydroxide (Magnesium Hydroxide 2,400 Mg/10 Ml Cup) 2,400 mg PO DAILY PRN PRN Reason: Constipation Magnesium Oxide (Magnesium Oxide 400 Mg Tab) 200 mg PO BID [facility] Last Admin: 09/24/21 09:35 Dose: 200 mg Metoprolol Tartrate (Metoprolol Tartrate 25 Mg Tab) 25 mg PO BID@0800,1700 [facility] Last Admin: 09/24/21 09:34 Dose: 25 mg Midodrine (Midodrine 5 Mg Tab) 5 mg PO AC-TID [facility] Montelukast Sodium (Montelukast 10 Mg Tab) 10 mg PO HS@1999 [facility] Last Admin: 09/23/21 20:44 Dose: 10 mg Multivitamins (Multivitamins, Thera 1 Each Tab) 1 each PO DAILY@1700 [facility] Last Admin: 09/23/21 17:35 Dose: 1 each Naloxone HCl (Naloxone 0.4 Mg/Ml 1 Ml Vial) 0.2 mg IV Q2M PRN PRN Reason: Opioid Reversal Nitroglycerin (Nitroglycerin Sl Tabs 0.4 Mg Tab) 0.4 mg SUBLINGUAL Q5M PRN PRN Reason: Chest Pain Ondansetron HCl (Ondansetron 4 Mg/2 Ml Vial) 4 mg IVP Q8HR PRN PRN Reason: Nausea And Vomiting Ondansetron HCl (Ondansetron 4 Mg Tab) 8 mg PO Q6H PRN PRN Reason: Nausea Pantoprazole Sodium (Pantoprazole 40 Mg Tablet) 40 mg PO BID@0800,1700 [facility] Last Admin: 09/24/21 09:33 Dose: 40 mg Psyllium Hydrophilic Mucilloid (Psyllium Husk 100% 6 Gm Packet) 6 gm PO DAILY@0800 [facility] Last Admin: 09/24/21 09:37 Dose: Not Given Sodium Biphosphate/Sodium Phosphate (Na Phos,M-B/Na Phos,Di-Ba 133 Ml Enema) 133 ml RECTAL DAILY PRN PRN Reason: Constipation Past medical history to include: COPD, DVT, hypertension, hyperlipidemia, osteoarthritis, rheumatoid arthritis, gout, DVT in the left upper arm, lung,, bradycardia with pacemaker, multiple myeloma, possible bladder perforation Social history: Patient smoked for about 40 years. No alcohol. Currently at [facility]. Family history: Pelvic fibrosis. Cancer Physical examination: VITAL SIGNS: 97, 95, 18, 81/51, 98% on 2 L GENERAL:, Laying in bed awake , tired. EYES: Pupils equal. Conjunctiva normal. HEENT: External appearance of nose and ears normal, oral cavity dry NECK: JVD not raised; masses not palpable. HEART: First and second heart sounds are normal; no edema. LUNGS:[ Respiratory rate normal; decreased breath sounds. ABDOMEN: Soft, nontender, liver spleen not palpable, no masses palpable. Bagley catheter with dirty-appearing urine PSYCH: Alert and oriented x3; mood and affect anxious MUSCULOSKELETAL:No Clubbing/cyanosis;muscles-grossly intact. Evidence of OA Sacral decubitus possibly stage II INVESTIGATIONS, reviewed in the clinical context: September 24: WBC 20.8 hemoglobin 9.5 sodium 127 potassium 4.1 BUN 31 and creatinine 1.5 for September 23: White count 18 hemoglobin 9.9 platelets 339 sodium 128 potassium 4.5 BUN 27 creatinine 1.6 to EKG tracing personally reviewed by me-heart rate 118. Atrial fibrillation Chest x-ray film personally reviewed by me-hyperinflation. Questionable infiltrate Admission labs: White count 20.0 hemoglobin 11 platelets 516 sodium 127 potassium 4.9 BUN 26 creatinine 1.68 albumin 2 Recent admission Urine culture:Enterobacter cloacae. September 20: Potassium 3.8 creatinine 0.77 sodium 131 Assessment and plan: -Acute kidney injury patient's creatinine was 0.77 on September 20. Currently 1.6 to: Slow to respond Continue IV fluids -Hypotension likely precipitated by combination of dehydration and A. fib with rapid ventricular rate IV fluids -Persistent atrial fibrillation with a rapid ventricular rate on presentation. Possibly precipitated by dehydration Continue Lopressor 25 mg twice a day. Being followed by cardiology -Chronic UTI with cystitis, secondary to Bagley catheter in a patient with recent bladder infection/perforation with hemorrhage. Recent culture positive for Enterobacter cloacae. Continue Levaquin -Recent bladder perforation with bleeding. Patient was due for a urinary bladder cystogram today. Being followed by Dr. Sarmiento. Patient does not want any more testing. Will not do any further cystogram. -Obesity BMI 35.5 Weight loss measures -Chronic medical debility Patient just about able to stand with support. -COPD in a previous smoker Symbicort 167 4.52 puffs twice a day. DuoNeb 4 times a day -Hyperlipidemia Lipitor 20 mg a day -Depression Cymbalta 60 mg daily at bedtime -Acute kidney injury, possibly prerenal/ATN. Note creatinine is gone up from a baseline. : Creatinine was 0.77. Today 1.6. -History of left upper arm DVT. Anticoagulation held because of repeated bleeding. -Rheumatoid arthritis -Essential hypertension Lopressor 25 mg twice a day -Chronic gout Allopurinol -Macrocytic anemia. Recent significant hematoma and hematuria. -Hyponatremia, from decreased oral intake.: Slow to respond Encourage by mouth intake. Follow labs -Lactic acid from acute kidney injury. No sepsis -DO NOT RESUSCITATE Midodrine added by Mai Stroud for low blood pressure. IV fluids changed to sodium bicarb drip for metabolic acidosis. Diet discussed with the patient.
[2021-09-24] MEDS: MIDODRINE 5 MG TAB PO SCH ×2 (12:29→18:13)
[2021-09-24] MEDS: LEVOFLOXACIN 250 MG TAB PO SCH (12:30)
[2021-09-24 12:49] VITALS: BMI 35.5
[2021-09-24] MEDS: DEXTROSE 5% IN WATER 1,000 ML with SODIUM BICARB (1 MEQ/ML) 100 ML IV SCH ×2 (13:04→21:47)
[2021-09-24] MEDS: ACETAMINOPHEN TAB 325 MG TAB PO PRN (13:14)
[2021-09-24] MEDS ORDERED: Magnesium Replacement Protocol 1 EACH MISC MISCELLANE PRN (13:35)
[2021-09-24] MEDS: MAGNESIUM SULFATE-D5W PMX 1 GM in DEXTROSE/WATER 1 100ML.BAG IVPB SCH ×3 (14:51→18:06)
[2021-09-24] MEDS ORDERED: SODIUM CHLORIDE 0.9% 500 ML 500 ML IV ONE (15:39)
[2021-09-24] MEDS: CHOLECALCIFEROL 125 MCG (5000 IU) TABLET PO SCH (18:13)
[2021-09-24] MEDS: CALCIUM CARB-VIT D 500 MG-5 MCG TAB PO SCH (18:14)
[2021-09-24] MEDS: ATORVASTATIN 20 MG TAB PO SCH (18:14)
[2021-09-24] MEDS: ASCORBIC ACID 500 MG TAB PO SCH (18:14)
[2021-09-24] MEDS: MULTIVITAMINS, THERA 1 EACH TAB PO SCH (18:14)
[2021-09-24] MEDS: GABAPENTIN 400 MG CAP PO SCH (19:58)
[2021-09-24] MEDS: DULoxetine HCL 60 MG CAPSULE.DR PO SCH (19:59)
[2021-09-24] MEDS: MONTELUKAST 10 MG TAB PO SCH (19:59)
[2021-09-24] MEDS: LATANOPROST 0.005% OPHTH DROPS 2.5 ML BTL BOTH EYES SCH (20:00)
[2021-09-25] MEDS: MIDODRINE 5 MG TAB PO SCH ×3 (06:47→18:37)
[2021-09-25] MEDS: DEXTROSE 5% IN WATER 1,000 ML with SODIUM BICARB (1 MEQ/ML) 100 ML IV SCH (07:07)
[2021-09-25] MEDS: SYMBICORT 160-4.5 MCG INHALER INHALATION SCH ×2 (08:06→19:37)
[2021-09-25] MEDS: IPRATROPIUM-ALBUTEROL 3 ML NEB INHALATION SCH ×4 (08:09→19:37)
[2021-09-25] MEDS ORDERED: FUROSEMIDE 10 MG/ML 4 ML VIAL IV STA (09:29)
[2021-09-25 10:00] LABS: Calcium 7.8 mg/dL (8.4-10.2); Potassium 3.8 mmol/L (3.5-5.1)
[2021-09-25] MEDS ORDERED: LORazepam 1 MG TAB PO PRN (10:40)
[2021-09-25] MEDS ORDERED: LORazepam 0.5 MG TAB PO PRN (10:40)
[2021-09-25] MEDS: MORPHINE SULFATE 2 MG/ML SYRINGE IVP PRN ×4 (11:17→23:35)
[2021-09-25] MEDS: LEVOFLOXACIN 250 MG TAB PO SCH (11:45)
[2021-09-25] MEDS: allopurinoL 100 MG TAB PO SCH ×2 (11:45→22:16)
[2021-09-25] MEDS: DOCUSATE 100 MG CAP PO SCH (11:45)
[2021-09-25] MEDS: METOPROLOL TARTRATE 25 MG TAB PO SCH ×2 (11:45→18:36)
[2021-09-25] MEDS: ACYCLOVIR 200 MG CAP PO SCH ×2 (11:45→22:16)
[2021-09-25] MEDS: FOLIC ACID 1 MG TAB PO SCH (11:45)
[2021-09-25] MEDS: PSYLLIUM HUSK 100% 6 GM PACKET PO SCH (11:46)
[2021-09-25] MEDS: MAGNESIUM OXIDE 400 MG TAB PO SCH ×2 (11:46→22:17)
[2021-09-25] MEDS: PANTOPRAZOLE 40 MG TABLET PO SCH ×2 (11:46→18:37)
[2021-09-25] MEDS: ENOXAPARIN 30 MG/0.3 ML SYRINGE SQ SCH (11:46)
--- NOTE | 2021-09-25 13:46 | P.PN ---
Subjective Progress Note Date: 09/25/21 HISTORY OF PRESENT ILLNESS: This is a 86 year female with a past medical history significant for paroxysmal atrial fibrillation, hypertension, hyperlipidemia, permanent pacemaker, COPD, and DVT. Patient follows in the office with Dr. Trotter. We have been asked to see the patient in consultation for atrial fibrillation. Patient examined at the bedside. Patient was brought to the hospital from [facility] secondary to hematuria. The patient was recently hospitalized secondary to sepsis, UTI, and bladder perforation. The patient barely does not want any further procedures to be performed with urology. Patient denies any chest pain or pressure. She denies shortness of breath. She is hypotensive this morning. She does report dizziness at the time of examination. Telemetry reveals atrial fibrillation with controlled ventricular rate. * EKG reveals atrial fibrillation with mild RVR with a heart rate of 118. * Chest xray some interstitial infiltrates and atelectasis at the lung bases. This appears increased compared to old exam. No obvious heart failure. * Laboratory data: WBC 20.8. Hemoglobin 9.5. Platelet count 297. Sodium 127. Potassium 4.1. BUN 31. Creatinine 1.54. ProBNP 11,900. * Current home cardiac medications include Lipitor 20 mg daily, metoprolol tartr ate 25 mg twice a day * Most recent echocardiogram obtained in August 2021 revealed ejection fraction 50- 55% with moderate to severe mitral regurgitation * Cardiac catheterization history: 2018 revealing minimal CAD. 09/25/2021 Patient examined this morning at the bedside. Patient appears more lethargic today compared to yesterday. Patient denies chest pain or pressure. She denies shortness of breath. Telemetry reveals atrial fibrillation with controlled ventricular rate. Patient is hypotensive this morning with a systolic blood pressure in the 70s. The patient is adament this morning that she is "done fighting" and wishes to . PHYSICAL EXAM: VITAL SIGNS: Reviewed. GENERAL: Well-developed in no acute distress. HEENT: Head is normocephalic. Pupils are equal, round. Sclerae anicteric. Mucous membranes of the mouth are moist. Neck supple. No JVD or thyromegaly LUNGS: Respirations even and unlabored. Lungs essentially clear to auscultation bilaterally. HEART: Irregular rate and rhythm. S1 and S2 heard. Systolic murmur noted. ABDOMEN: Soft. Nondistended. Nontender. EXTREMITIES: Normal range of motion. No clubbing or cyanosis. Peripheral pulses intact. Trace lower extremity edema NEUROLOGIC: Awake and alert. Oriented x 3. ASSESSMENT: Hematuria with recent bladder perforation Hypotension Acute kidney injury Chronic UTI Paroxysmal atrial fibrillation with RVR, currently rate controlled, not on anticoagulation secondary to bleeding Recent hospitalization secondary to abdominal wall/pelvic hematoma Hypertension Hyperlipidemia History of pacemaker insertion COPD PLAN: Continue current cardiac medications Treatment of hypotension per internal medicine No further inpatient recommendations from a cardiac standpoint Patient requesting to be made hospice this morning. Will defer this decision to internal medicine We will sign off. Please reconsult if needed. Nurse practitioner note has been reviewed by physician. Signing provider agrees with the documented findings, assessment, and plan of care. Objective - Vital Signs Vital signs: Vital Signs Temp 97.7 F 09/25/21 12:23 Pulse 105 H 09/25/21 12:23 Resp 20 09/25/21 12:23 BP 77/48 09/25/21 12:23 Pulse Ox 97 09/25/21 12:23 FiO2 Intake & Output 09/24/21 09/25/21 09/25/21 18:59 06:59 18:59 Intake Total 480 Output Total 100 270 Balance 380 -270 Weight 99.79 kg Intake: Oral 480 Output: Urine 100 270 Other: Voiding Method Indwelling Catheter Indwelling Catheter Indwelling Catheter - Labs CBC & Chem 7: 09/24/21 09:47 09/25/21 08:36 Labs: Abnormal Lab Results - Last 24 Hours (Table) 09/25/21 Range/Units 08:36 Sodium 124 L (137-145) mmol/L Carbon Dioxide 20 L (22-30) mmol/L BUN 35 H (7-17) mg/dL Creatinine 1.66 H (0.52-1.04) mg/dL Calcium 7.8 L (8.4-10.2) mg/dL Microbiology - Last 24 Hours (Table) 09/22/21 21:04 Blood Culture - Preliminary Blood No Growth after 48 hours 09/22/21 21:09 Blood Culture - Preliminary Blood No Growth after 48 hours
--- NOTE | 2021-09-25 14:29 | P.PN ---
Subjective Progress Note Date: 09/25/21 Principal diagnosis: UTI This is an 86-year-old female with a pmh significant for CHF, COPD, Afib, multiple myeloma, and a DVT. She presented to the emergency department on 09/22/21 with hematuria. Patient has a known bladder perforation and was discharged from this facility yesterday after a 3 day admission for sepsis, a UTI, and acute on chronic kidney injury. She was discharged on a course of Levaquin. Urine culture was positive for enterobactor cloacae and the bacteria was found to be sensitive to the Levaquin. Patient has been taking this as prescribed since discharge. She is still residing at [facility] and was found to have bc hematuria in the catheter this morning. She was also said to be hypotensive by the staff at [facility] as well as in the ED. Blood cultures obtained and patient started on IV cefepime based on sensitivity from the urine culture. 09/23 The patient was seen in the emergency department. Palliative care philosophies and services explained to the patient. Education provided regarding the patient's sepsis/bladder perforation. The patient stated "I am done. I do not want any more testing or surgery". She was reminded that she was scheduled for a cystoscopy with urology at 2pm today. She asked if she could refuse the cystoscopy. She is "sick of all the poking and prodding". She stated that it was pointless to have a cystoscopy if she did not want any surgery or treatment anyway. She stated that she has been through too much, and so has her family. Her goals are to live with the best quality of life she can for her time remaining, and for comfort. She stated that she does not want to come back to the hospital again and will "refuse to get in the ambulance". She also stated she wanted to be a DNR. Advanced directives in the EMR confirm her wishes to be a DNR. Code status changed to DNR in the EMR. The patient indicated that her oldest son, Jose, was her DPOA. He and his were contacted via telephone. They report talking to the patient last night and are in agreement with a hospice informational meeting. Dr. Kitchen notified of patient's wishes to cancel her cystoscopy. He stated that he would like to talk to the patient and then would contact urology and update on the plan of care. Awaiting Dr. Kitchen's assessment, then will consult hospice. RNR[place]a, updated as well. Objective - Vital Signs Vital signs: Vital Signs Temp 97.8 F 09/25/21 08:15 Pulse 83 09/25/21 08:15 Resp 20 09/25/21 08:15 BP 69/44 09/25/21 08:55 Pulse Ox 99 09/25/21 08:15 FiO2 Intake & Output 09/24/21 09/25/21 09/25/21 18:59 06:59 18:59 Intake Total 480 Output Total 100 270 Balance 380 -270 Weight 99.79 kg Intake: Oral 480 Output: Urine 100 270 Other: Voiding Method Indwelling Catheter Indwelling Catheter - Exam General: Patient awake lethargic and ill appearing HEENT: Head is atraumatic, normocephalic Neck is supple. Sclerae are clear. Pupils equal, round and reactive to light bilaterally. CV: Heart irregular in rate and rhythm positive S1 and S2. No clicks, rubs or murmurs. Lungs: Diminished with fine crackles to bilateral bases. No wheezes rales or rhonchi. Respirations labored. Abdomen/GI: Soft. Bowel sounds present in all 4 quadrants. Bowel sounds normoactive. + abdominal tenderness. : Bernabe catheter with cloudy yellow urine Musculoskeletal/ Extremities: No tenderness on muscular exam. No ecchymosis. + genrealized weakness Vascular: Radial pulses equal. 2/4. Pedal pulses 1/4. + 2 edema to bilateral LE Skin: Lower extremities weeping, No rash. Neurologic: Lethargic, confused, speech garbled. Opens eyes and follows commands. Psychiatric: Tearful/Emotional - Labs CBC & Chem 7: 09/24/21 09:47 09/25/21 08:36 Labs: Abnormal Lab Results - Last 24 Hours (Table) 09/24/21 09/24/21 Range/Units 09:47 09:47 WBC 20.8 H (3.8-10.6) k/uL RBC 2.97 L (3.80-5.40) m/uL Hgb 9.5 L (11.4-16.0) gm/dL Hct 31.2 L (34.0-46.0) % MCV 105.1 H (80.0-100.0) fL MCHC 30.5 L (31.0-37.0) g/dL RDW 17.1 H (11.5-15.5) % Macrocytosis Marked A Sodium 127 L (137-145) mmol/L Carbon Dioxide 15 L (22-30) mmol/L BUN 31 H (7-17) mg/dL Creatinine 1.54 H (0.52-1.04) mg/dL Glucose 121 H (74-99) mg/dL Calcium 8.0 L (8.4-10.2) mg/dL Magnesium 1.2 L (1.6-2.3) mg/dL Total Protein 3.7 L (6.3-8.2) g/dL Albumin 1.5 L (3.5-5.0) g/dL Microbiology - Last 24 Hours (Table) 09/22/21 21:04 Blood Culture - Preliminary Blood No Growth after 48 hours 09/22/21 21:09 Blood Culture - Preliminary Blood No Growth after 48 hours Assessment and Plan Assessment: Symptoms * Pain - 10 back pain, Continue Tylenol, Neurotin, Zyloprim, and Emery * Fatigue - Yes, + generalized weakness and fatigue * SOB - Yes, Continue Duoneb, Albuterol, Atrovent, Symbicort, and Singular * Insomnia - Yes, occasionally * N/V - No, Continue Zofran prn * Anxiety - Yes, Continue Xanax prn * Depression - No, Continue Cymbalta * Confusion - Yes, confused with garbled speech today * Agitation - No * Hallucinations - No * Appetite/weight loss - Decreased appetite, no recent weight loss, continue chopped diet * Dysphagia -No * Constipation - No, Continue Metamucil and colace daily, continue Fleet enema, mom, and dulcolax prn, LBM 09/23 * Incontinence - No, bernabe in place * Itch - No Plan: Summary/Goals - The patient was examined at bedside. She is lethargic, confused, and has garbled speech. She is hypotensive with a BP of 69/44. CARISSA Carrillo at bedside. She states the patient has had very low urine output for the last 17 hours. The patient's breathing is labored. She is asking for her family and stating "I am ready to meet Lane". The patient's son, Jose, and daught er-in-law, Aleena, was notified that she has taken a turn for the worse, is not doing well, and is asking for them. They stated they would come in right away and want to make her comfortable. Dr. Kitchen notified. He stated he was on his way in to see her now. The patient's IV fluids were stopped and a dose of IV lasix was given. The patient seems to be waking up a bit more. BP improved slightly. Urine output remains low. Dr. Kitchen at bedside to assess patient. He spoke with the patient's family and agreed to make her comfortable. Comfort meds were ordered. Emotional support and education provided to the patient and family. The patient is resting in bed surrounded by family. She appears comfortable and breathing less labored after receiving Morphine. Recommendations - Comfort measures Advanced Directives - Yes, available in EMR Code Status - The patient wishes to be a DNR Thank you for this consult Belgica Resendez [facility]- Palliative Care [facility] [id number] Email: [email or web address]
--- NOTE | 2021-09-25 18:07 | P.PN ---
Progress Note - Text Progress Note Date: 09/25/21 Chief Complaint: Tired This is a pleasant 86-year-old patient follows with Dr. Rayo at [facility]. Patient was discharged hospital 09/07/2021.. Had severe bleeding and coagulopathy secondary to anticoagulation. Also abdominal wall and pelvic hematoma and a urinary bladder hematoma. Computed tomography scan showed contrast extravasation suspicion for perforation of the bladder. Bagley catheter placed. Blood loss anemia. Also UTI from enterococcus group D. With sepsis. History of DVT and atrial fibrillation. Multiple myeloma. Chronic diastolic CHF. Patient admitted from 09/18 through 09/21/2021. Presented with decreased urine output Bagley catheter was clogged up. Patient says she does not want any surgical intervention. Seen by Dr. johnson-urology.Urine culture came back showing Enterobacter cloacae. Discharged on Levaquin. Patient also to acute kidney injury that resolved with IV fluids. Patient now presents feeling weak and tired. Patient's was found to be in atrial fibrillation with rapid ventricular rate. Blood pressure is running low. Also patient's found to be in acute kidney injury. Creatinine is gone up. No fever. Patient started IV fluids. Feels very dry mouth. Tired. Patient does not want to have a bladder cystogram that was scheduled for today. Admitted with acute kidney injury. Atrial fibrillation uncontrolled. Started IV fluids. Lopressor continued. September 24: Tired. Diet was discussed with the patient. We'll start the patient on a bicarbonate drip for metabolic acidosis. Discussed with patient. Did give the option of patient of the bladder cystogram in case she wants to Bagley catheter to be out as this was discussed with Dr. Sarmiento yesterday. Currently no further intervention. September 25: I was called by the nurses this morning. Patient blood pressure is running low. Significant edema. Patient does not want to take any medications. I ordered 1 dose of IV Lasix 40 mg. Hours unable to reach the floor and the nurse by phone as the hospital for system was down. I managed to speak to the palliative STREET[employer] DISPATCHER [place] who was with the patient. Patient's [id number] was the PoA was also present. I came down and met with the nurse the patient, the [id number], and the son Jose who is hard of hearing. Patient's pulse ox was 97% on 2 L. Able to lie flat. Very symptoms are discussed including pain. Patient has significant low back pain. Morphine was ordered. A very big component of anxiety. Ativan was ordered. Patient related soft and also had some ice cream. Patient does not want to take any other medications currently. Whole spectrum of care about symptom control/hospice/was responsible medications was discussed in detail. Late in the day patient smoked comfortable getting some morphine and Ativan. Laying down flat. Breathing comfortable. Was decided to see how the patient does and the next 24 hours. Patient not a candidate for IV morphine as of this afternoon. When necessary morphine 1-2 mg every 3 when necessary. [place] 5/500 was also added scheduled. Active Medications Acetaminophen (Acetaminophen Tab 325 Mg Tab) 650 mg PO Q6HR PRN PRN Reason: Mild Pain or Fever > 100.5 Last Admin: 09/24/21 13:14 Dose: 650 mg Hydrocodone Bitart/Acetaminophen (Hydrocodone/Apap 5-325mg 1 Each Tab) 1 each PO Q8HR PRN PRN Reason: BREAKTHROUGH Pain Last Admin: 09/24/21 21:30 Dose: 1 each Hydrocodone Bitart/Acetaminophen (Hydrocodone/Apap 5-325mg 1 Each Tab) 1 each PO Q6HR [facility] Acyclovir (Acyclovir 200 Mg Cap) 400 mg PO BID@ [facility] Last Admin: 09/25/21 11:45 Dose: Not Given Albuterol/Ipratropium (Ipratropium-Albuterol 3 Ml Neb) 3 ml INHALATION RT-QID PRN PRN Reason: Shortness Of Breath Or Wheezing Albuterol/Ipratropium (Ipratropium-Albuterol 3 Ml Neb) 3 ml INHALATION RT-QID [facility] Last Admin: 09/25/21 15:05 Dose: Not Given Allopurinol (Allopurinol 100 Mg Tab) 100 mg PO BID@ [facility] Last Admin: 09/25/21 11:45 Dose: Not Given Atorvastatin Calcium (Atorvastatin 20 Mg Tab) 20 mg PO DAILY@1700 [facility] Last Admin: 09/24/21 18:14 Dose: 20 mg Bisacodyl (Bisacodyl 10 Mg Supp) 10 mg RECTAL DAILY PRN PRN Reason: Constipation Budesonide/Formoterol Fumarate (Symbicort 160-4.5 Mcg Inhaler) 2 puff INHALA TION RT-BID@0800,1700 [facility] Last Admin: 09/25/21 08:06 Dose: Not Given Duloxetine HCl (Duloxetine Hcl 60 Mg Capsule.Dr) 60 mg PO HS@1999 [facility] Last Admin: 09/24/21 19:59 Dose: 60 mg Enoxaparin Sodium (Enoxaparin 30 Mg/0.3 Ml Syringe) 30 mg SQ DAILY [facility] Last Admin: 09/25/21 11:46 Dose: Not Given Gabapentin (Gabapentin 400 Mg Cap) 400 mg PO [facility] Last Admin: 09/24/21 19:58 Dose: 400 mg Latanoprost (Latanoprost 0.005% Ophth Drops 2.5 Ml Btl) 1 drops BOTH EYES HS@1999 [facility] Last Admin: 09/24/21 20:00 Dose: 1 drops Levofloxacin (Levofloxacin 250 Mg Tab) 250 mg PO DAILY@08 [facility]; Protocol Last Admin: 09/25/21 11:45 Dose: Not Given Loperamide HCl (Loperamide 2 Mg Cap) 2 mg PO QID PRN PRN Reason: LOOSE STOOLS Lorazepam (Lorazepam 0.5 Mg Tab) 0.5 mg PO Q4HR PRN PRN Reason: Moderate Anxiety Lorazepam (Lorazepam 1 Mg Tab) 1 mg PO Q4HR PRN PRN Reason: Severe Anxiety Last Admin: 09/25/21 14:05 Dose: 1 mg Lorazepam (Lorazepam 2 Mg/Ml Inj) 1 mg IV Q4HR PRN PRN Reason: Anxiety (ONLY IF NO PO) Lorazepam (Lorazepam 2 Mg/Ml Inj) 0.5 mg IV Q4HR PRN PRN Reason: Anxiety (ONLY IF NO PO) Magnesium Hydroxide (Magnesium Hydroxide 2,400 Mg/10 Ml Cup) 2,400 mg PO DAILY PRN PRN Reason: Constipation Magnesium Oxide (Magnesium Oxide 400 Mg Tab) 200 mg PO BID [facility] Last Admin: 09/25/21 11:46 Dose: Not Given Metoprolol Tartrate (Metoprolol Tartrate 25 Mg Tab) 25 mg PO BID@0800,1700 [facility] Last Admin: 09/25/21 11:45 Dose: Not Given Midodrine (Midodrine 5 Mg Tab) 5 mg PO AC-TID [facility] Last Admin: 09/25/21 14:19 Dose: Not Given Miscellaneous Information (Magnesium Replacement Protocol 1 Each Misc) 1 each MISCELLANE DAILY PRN; Protocol PRN Reason: Per Protocol Montelukast Sodium (Montelukast 10 Mg Tab) 10 mg PO HS@2000 [facility] Last Admin: 09/24/21 19:59 Dose: 10 mg Morphine Sulfate (Morphine Sulfate 2 Mg/Ml Syringe) 2 mg IVP Q3HR PRN PRN Reason: Pain/Discomfort Last Admin: 09/25/21 15:28 Dose: 2 mg Multivitamins (Multivitamins, Thera 1 Each Tab) 1 each PO DAILY@1700 [facility] Last Admin: 09/24/21 18:14 Dose: 1 each Naloxone HCl (Naloxone 0.4 Mg/Ml 1 Ml Vial) 0.2 mg IV Q2M PRN PRN Reason: Opioid Reversal Nitroglycerin (Nitroglycerin Sl Tabs 0.4 Mg Tab) 0.4 mg SUBLINGUAL Q5M PRN PRN Reason: Chest Pain Ondansetron HCl (Ondansetron 4 Mg/2 Ml Vial) 4 mg IVP Q8HR PRN PRN Reason: Nausea And Vomiting Ondansetron HCl (Ondansetron 4 Mg Tab) 8 mg PO Q6H PRN PRN Reason: Nausea Pantoprazole Sodium (Pantoprazole 40 Mg Tablet) 40 mg PO BID@0800,1700 [facility] Last Admin: 09/25/21 11:46 Dose: Not Given Psyllium Hydrophilic Mucilloid (Psyllium Husk 100% 6 Gm Packet) 6 gm PO DAILY@0800 [facility] Last Admin: 09/25/21 11:46 Dose: Not Given Sodium Biphosphate/Sodium Phosphate (Na Phos,M-B/Na Phos,Di-Ba 133 Ml Enema) 133 ml RECTAL DAILY PRN PRN Reason: Constipation Past medical history to include: COPD, DVT, hypertension, hyperlipidemia, osteoarthritis, rheumatoid arthritis, gout, DVT in the left upper arm, lung,, bradycardia with pacemaker, multiple myeloma, possible bladder perforation Social history: Patient smoked for about 40 years. No alcohol. Currently at [facility]. Family history: Pelvic fibrosis. Cancer Physical examination: VITAL SIGNS: 97.7, 105, 20, 77 x 48, 97% on 2 L GENERAL:, Laying in bed anxious EYES: Pupils equal. Conjunctiva normal. HEENT: External appearance of nose and ears normal, oral cavity dry NECK: JVD not raised; masses not palpable. HEART: First and second heart sounds are normal; significant edema LUNGS:[ Respiratory rate increased; fair air entry ABDOMEN: Soft, nontender, liver spleen not palpable, no masses palpable. Bagley catheter with dirty-appearing urine PSYCH: Tired but able to answer simple questions MUSCULOSKELETAL:No Clubbing/cyanosis;muscles-grossly intact. Evidence of OA Sacral decubitus possibly stage II INVESTIGATIONS, reviewed in the clinical context: September 25: Sodium 124 potassium 3.8 BUN 35 creatinine 1.66 September 24: WBC 20.8 hemoglobin 9.5 sodium 127 potassium 4.1 BUN 31 and creatinine 1.5 for September 23: White count 18 hemoglobin 9.9 platelets 339 sodium 128 potassium 4.5 BUN 27 creatinine 1.6 to EKG tracing personally reviewed by me-heart rate 118. Atrial fibrillation Chest x-ray film personally reviewed by me-hyperinflation. Questionable infiltrate Admission labs: White count 20.0 hemoglobin 11 platelets 516 sodium 127 potassium 4.9 BUN 26 cre atinine 1.68 albumin 2 Recent admission Urine culture:Enterobacter cloacae. September 20: Potassium 3.8 creatinine 0.77 sodium 131 Assessment and plan: -Acute kidney injury patient's creatinine was 0.77 on September 20. Currently 1.6 to: Slow to respond Received IV fluids -Hypotension likely precipitated by combination of dehydration and A. fib with rapid ventricular rate: Controlled IV fluids -Persistent atrial fibrillation with a rapid ventricular rate on presentation. Possibly precipitated by dehydration On Lopressor 25 mg twice a day. Being followed by cardiology -Chronic UTI with cystitis, secondary to Bagley catheter in a patient with recent bladder infection/perforation with hemorrhage. Recent culture positive for Enterobacter cloacae. Levaquin -Recent bladder perforation with bleeding. Patient was due for a urinary bladder cystogram today. Being followed by Dr. Sarmiento. Patient does not want any more testing. Will not do any further cystogram. -Obesity BMI 35.5 Weight loss measures -Chronic medical debility Before presentation Patient just about able to stand with support. -COPD in a previous smoker Symbicort 167 4.52 puffs twice a day. DuoNeb 4 times a day -Hyperlipidemia Lipitor 20 mg a day -Depression Cymbalta 60 mg daily at bedtime -Acute kidney injury, possibly prerenal/ATN. Note creatinine is gone up from a baseline. : Creatinine was 0.77. Today 1.6. -History of left upper arm DVT. Anticoagulation held because of repeated bleeding. -Rheumatoid arthritis -Essential hypertension Lopressor 25 mg twice a day -Chronic gout Allopurinol -Macrocytic anemia. Recent significant hematoma and hematuria. -Hyponatremia, from decreased oral intake.: Slow to respond Encourage by mouth intake. Follow labs -Lactic acid from acute kidney injury. No sepsis -DO NOT RESUSCITATE Patient does not want to take any other medications. Morphine every 3 hours when necessary. Ativan by mouth when necessary. IV Ativan not available in the hospital. Heating pad. Comfort food. Oxygen as tolerated. No need for any IV morphine. Advanced care planning: This was discussed at length with the patient patient is [id number] who is the POA, patient's son Jose at the bedside. Also present [place] [employer] DISPATCHER from palliative care and patient nurse. End-of-life care was discussed at length. Including different terminology including hospice, palliative care, comfort measures. Patient's main complaint appears to be pain and anxiety this point. Hence morphine and Ativan to be used. Patient's pulse ox of 97% on 2 L patient does not appear to be in respiratory distress. IV fluids have been discontinued. We'll continue with current treatment plan. No indication for IV morphine. Time spent for this about 30 minutes
[2021-09-25] MEDS: ATORVASTATIN 20 MG TAB PO SCH (18:36)
[2021-09-25] MEDS: MULTIVITAMINS, THERA 1 EACH TAB PO SCH (18:37)
[2021-09-25] MEDS: HYDROcodone/APAP 5-325MG 1 EACH TAB PO SCH (22:16)
[2021-09-25] MEDS: DULoxetine HCL 60 MG CAPSULE.DR PO SCH (22:16)
[2021-09-25] MEDS: GABAPENTIN 400 MG CAP PO SCH (22:17)
[2021-09-25] MEDS: LATANOPROST 0.005% OPHTH DROPS 2.5 ML BTL BOTH EYES SCH (22:17)
[2021-09-25] MEDS: MONTELUKAST 10 MG TAB PO SCH (22:17)
[2021-09-26] MEDS: HYDROcodone/APAP 5-325MG 1 EACH TAB PO SCH ×5 (00:53→23:03)
[2021-09-26] MEDS: MIDODRINE 5 MG TAB PO SCH ×3 (06:36→16:41)
[2021-09-26] MEDS: IPRATROPIUM-ALBUTEROL 3 ML NEB INHALATION SCH ×3 (08:38→19:56)
[2021-09-26] MEDS: SYMBICORT 160-4.5 MCG INHALER INHALATION SCH ×2 (08:38→19:56)
[2021-09-26] MEDS: MORPHINE SULFATE 2 MG/ML SYRINGE IVP PRN ×4 (09:28→20:14)
[2021-09-26] MEDS: ACYCLOVIR 200 MG CAP PO SCH ×2 (09:54→22:48)
[2021-09-26] MEDS: ENOXAPARIN 30 MG/0.3 ML SYRINGE SQ SCH (09:55)
[2021-09-26] MEDS: LEVOFLOXACIN 250 MG TAB PO SCH (09:55)
[2021-09-26] MEDS: METOPROLOL TARTRATE 25 MG TAB PO SCH ×2 (09:55→16:41)
[2021-09-26] MEDS: MAGNESIUM OXIDE 400 MG TAB PO SCH ×2 (09:55→22:48)
[2021-09-26] MEDS: PANTOPRAZOLE 40 MG TABLET PO SCH ×2 (09:55→16:41)
[2021-09-26] MEDS: allopurinoL 100 MG TAB PO SCH ×2 (09:55→22:48)
[2021-09-26] MEDS: PSYLLIUM HUSK 100% 6 GM PACKET PO SCH (09:55)
[2021-09-26] MEDS: LORazepam 2 MG/ML INJ IV PRN ×3 (10:39→23:12)
[2021-09-26] MEDS: ATORVASTATIN 20 MG TAB PO SCH (16:41)
[2021-09-26] MEDS: MULTIVITAMINS, THERA 1 EACH TAB PO SCH (16:41)
--- NOTE | 2021-09-26 21:52 | P.PN ---
Subjective Progress Note Date: 09/26/21 86-year-old patient follows with Dr. Rayo at [facility]. Patient was discharged hospital 09/07/2021.. Had severe bleeding and coagulopathy secondary to anticoagulation. Also abdominal wall and pelvic hematoma and a urinary bladder hematoma. Computed tomography scan showed contrast extravasation suspicion for perforation of the bladder. Bagley catheter placed. Blood loss anemia. Also UTI from enterococcus group D. With sepsis. History of DVT and atrial fibrillation. Multiple myeloma. Chronic diastolic CHF. Patient admitted from 09/18 through 09/21/2021. Presented with decreased urine output Bagley catheter was clogged up. Patient says she does not want any surgical intervention. Seen by Dr. johnson-urology.Urine culture came back showing Enterobacter cloacae. Discharged on Levaquin. Patient also to acute kidney injury that resolved with IV fluids. Patient now presents feeling weak and tired. Patient's was found to be in atrial fibrillation with rapid ventricular rate. Blood pressure is running low. Also patient's found to be in acute kidney injury. Creatinine is gone up. No fever. Patient started IV fluids. Feels very dry mouth. Tired. Patient does not want to have a bladder cystogram that was scheduled for today. Admitted with acute kidney injury. Atrial fibrillation uncontrolled. Started IV fluids. Lopressor continued. Objective - Vital Signs Vital signs: Vital Signs Temp 97.7 F 09/26/21 09:25 Pulse 100 09/26/21 09:25 Resp 14 09/26/21 12:00 BP 76/58 09/26/21 09:25 Pulse Ox 92 L 09/26/21 09:25 FiO2 Intake & Output 09/25/21 09/26/21 09/26/21 18:59 06:59 18:59 Intake Total 0 Output Total 180 150 Balance -180 -150 0 Intake: Oral 0 Output: Urine 180 150 Other: Voiding Method Indwelling Catheter Indwelling Catheter Indwelling Catheter # [place] 1 - Exam GENERAL:, Laying in bed anxious EYES: Pupils equal. Conjunctiva normal. HEENT: External appearance of nose and ears normal, oral cavity dry NECK: JVD not raised; masses not palpable. HEART: First and second heart sounds are normal; significant edema LUNGS:[ Respiratory rate increased; fair air entry ABDOMEN: Soft, nontender, liver spleen not palpable, no masses palpable. Bagley catheter with dirty-appearing urine PSYCH: Tired but able to answer simple questions MUSCULOSKELETAL:No Clubbing/cyanosis;muscles-grossly intact. Evidence of OA Sacral decubitus possibly stage II - Labs CBC & Chem 7: 09/24/21 09:47 09/25/21 08:36 Labs: Microbiology - Last 24 Hours (Table) 09/22/21 21:04 Blood Culture - Preliminary Blood No Growth after 72 hours 09/22/21 21:09 Blood Culture - Preliminary Blood No Growth after 72 hours Assessment and Plan Assessment: 1. Acute kidney injury patient's creatinine was 0.77 on September 20. Currently 1.6 to: Slow to respond Received IV fluids -Hypotension likely precipitated by combination of dehydration and A. fib with rapid ventricular rate: Controlled IV fluids 2. Persistent atrial fibrillation with a rapid ventricular rate on presentation. Possibly precipitated by dehydration On Lopressor 25 mg twice a day. Being followed by cardiology 3. Chronic UTI with cystitis, secondary to Bagley catheter in a patient with recent bladder infection/perforation with hemorrhage. Recent culture positive for Enterobacter cloacae. Levaquin 4. Recent bladder perforation with bleeding. Patient was due for a urinary bladder cystogram today. Being followed by Dr. Sarmiento. Patient does not want any more testing. Will not do any further cystogram. 5. COPD in a previous smoker Symbicort 167 4.52 puffs twice a day. DuoNeb 4 times a day 6. Hyperlipidemia Lipitor 20 mg a day 7. Depression Cymbalta 60 mg daily at bedtime 8. History of left upper arm DVT. Anticoagulation held because of repeated bleeding. 9. Essential hypertension Lopressor 25 mg twice a day 10. Chronic gout Allopurinol
[2021-09-26 22:07] VITALS: BP 68/45; TEMP 98.2
[2021-09-26] MEDS: GABAPENTIN 400 MG CAP PO SCH (22:48)
[2021-09-26] MEDS: LATANOPROST 0.005% OPHTH DROPS 2.5 ML BTL BOTH EYES SCH (22:48)
[2021-09-26] MEDS: DULoxetine HCL 60 MG CAPSULE.DR PO SCH (22:48)
[2021-09-26] MEDS: MONTELUKAST 10 MG TAB PO SCH (22:48)
[2021-09-27] MEDS: MORPHINE SULFATE 2 MG/ML SYRINGE IVP PRN ×7 (02:11→23:24)
[2021-09-27] MEDS: HYDROcodone/APAP 5-325MG 1 EACH TAB PO SCH ×2 (06:19→13:43)
[2021-09-27] MEDS: MIDODRINE 5 MG TAB PO SCH ×2 (08:59→13:44)
[2021-09-27] MEDS: METOPROLOL TARTRATE 25 MG TAB PO SCH (08:59)
[2021-09-27] MEDS: allopurinoL 100 MG TAB PO SCH (08:59)
[2021-09-27] MEDS: ACYCLOVIR 200 MG CAP PO SCH (08:59)
[2021-09-27] MEDS: PANTOPRAZOLE 40 MG TABLET PO SCH (08:59)
[2021-09-27] MEDS: LEVOFLOXACIN 250 MG TAB PO SCH (08:59)
[2021-09-27] MEDS: LORazepam 2 MG/ML INJ IV PRN (09:00)
[2021-09-27] MEDS: ENOXAPARIN 30 MG/0.3 ML SYRINGE SQ SCH (09:00)
[2021-09-27] MEDS: PSYLLIUM HUSK 100% 6 GM PACKET PO SCH (09:00)
[2021-09-27] MEDS: MAGNESIUM OXIDE 400 MG TAB PO SCH (09:01)
[2021-09-27] MEDS: IPRATROPIUM-ALBUTEROL 3 ML NEB INHALATION SCH ×2 (10:30→13:44)
[2021-09-27] MEDS: SYMBICORT 160-4.5 MCG INHALER INHALATION SCH (10:30)
--- NOTE | 2021-09-27 14:54 | P.PN ---
Subjective Progress Note Date: 09/27/21 Principal diagnosis: Acute kidney injury Persistent atrial fibrillation with a rapid ventricular rate Chronic UTI with cystitis 86-year-old patient follows with Dr. Rayo at [facility]. Patient was discharged hospital 09/07/2021.. Had severe bleeding and coagulopathy secondary to anticoagulation. Also abdominal wall and pelvic hematoma and a urinary bladder hematoma. Computed tomography scan showed contrast extravasation suspicion for perforation of the bladder. Bagley catheter placed. Blood loss anemia. Also UTI from enterococcus group D. With sepsis. History of DVT and atrial fibrillation. Multiple myeloma. Chronic diastolic CHF. Patient admitted from 09/18 through 09/21/2021. Presented with decreased urine output Bagley catheter w as clogged up. Patient says she does not want any surgical intervention. Seen by Dr. johnson-urology.Urine culture came back showing Enterobacter cloacae. Discharged on Levaquin. Patient also to acute kidney injury that resolved with IV fluids. Patient now presents feeling weak and tired. Patient's was found to be in atrial fibrillation with rapid ventricular rate. Blood pressure is running low. Also patient's found to be in acute kidney injury. Creatinine is gone up. No fever. Patient started IV fluids. Feels very dry mouth. Tired. Patient does not want to have a bladder cystogram that was scheduled for today. Admitted with acute kidney injury. Atrial fibrillation uncontrolled. Started IV fluids. Lopressor continued. 09/27/2021 Patient seen and evaluated in room at bedside; remains comfortable; breathing comfortably; remains unresponsive Multiple family members present in the room; patient's condition and further plan of care was discussed in great detail; family report like to continue with current comfort measures to able to talk to hospice in next 24-48 hours; he is also requesting to continue with inpatient hospice; requesting to continue current comfort care medications which seem to be working Objective - Vital Signs Vital signs: Vital Signs Temp 98.2 F 09/26/21 20:00 Pulse 112 H 09/27/21 09:00 Resp 10 L 09/27/21 12:00 BP 68/45 09/26/21 20:00 Pulse Ox 92 L 09/26/21 09:25 FiO2 Intake & Output 09/26/21 09/27/21 09/27/21 18:59 06:59 18:59 Intake Total 0 0 Output Total 225 400 Balance 0 -225 -400 Intake: Oral 0 0 Output: Urine 225 400 Other: Voiding Method Indwelling Catheter Indwelling Catheter Indwelling Catheter # Em[place] 1 - Exam GENERAL:, Laying in bed anxious EYES: Pupils equal. Conjunctiva normal. HEENT: External appearance of nose and ears normal, oral cavity dry NECK: JVD not raised; masses not palpable. HEART: First and second heart sounds are normal; significant edema LUNGS:[ Respiratory rate increased; fair air entry ABDOMEN: Soft, nontender, liver spleen not palpable, no masses palpable. Bagley catheter with dirty-appearing urine PSYCH: Tired but able to answer simple questions MUSCULOSKELETAL:No Clubbing/cyanosis;muscles-grossly intact. Evidence of OA Sacral decubitus possibly stage II - Labs CBC & Chem 7: 09/24/21 09:47 09/25/21 08:36 Labs: Microbiology - Last 24 Hours (Table) 09/22/21 21:04 Blood Culture - Preliminary Blood No Growth after 96 hours 09/22/21 21:09 Blood Culture - Preliminary Blood No Growth after 96 hours Assessment and Plan Assessment: 1. Acute kidney injury patient's creatinine was 0.77 on September 20. Currently 1.6 to: Slow to respond Received IV fluids -Hypotension likely precipitated by combination of dehydration and A. fib with rapid ventricular rate: Controlled IV fluids 2. Persistent atrial fibrillation with a rapid ventricular rate on presentation. Possibly precipitated by dehydration On Lopressor 25 mg twice a day. Being followed by cardiology 3. Chronic UTI with cystitis, secondary to Bagley catheter in a patient with recent bladder infection/perforation with hemorrhage. Recent culture positive for Enterobacter cloacae. Levaquin 4. Recent bladder perforation with bleeding. Patient was due for a urinary bladder cystogram today. Being followed by Dr. Sarmiento. Patient does not want any more testing. Will not do any further cystogram. 5. COPD in a previous smoker Symbicort 167 4.52 puffs twice a day. DuoNeb 4 times a day 6. Hyperlipidemia Lipitor 20 mg a day 7. Depression Cymbalta 60 mg daily at bedtime 8. History of left upper arm DVT. Anticoagulation held because of repeated bleeding. 9. Essential hypertension Lopressor 25 mg twice a day 10. Chronic gout Allopurinol
[2021-09-28] MEDS: MORPHINE SULFATE 2 MG/ML SYRINGE IVP PRN ×7 (02:24→21:27)
[2021-09-28] MEDS: LORazepam 2 MG/ML INJ IV PRN ×2 (07:08→20:27)
[2021-09-28] MEDS ORDERED: SCOPOLAMINE 1 MG/72 HR PATCH TRANSDERM SCH (10:00)
--- NOTE | 2021-09-28 10:20 | P.PN ---
Subjective Progress Note Date: 09/28/21 Principal diagnosis: UTI This is an 86-year-old female with a pmh significant for CHF, COPD, Afib, multiple myeloma, and a DVT. She presented to the emergency department on 09/22/21 with hematuria. Patient has a known bladder perforation and was discharged from this facility yesterday after a 3 day admission for sepsis, a UTI, and acute on chronic kidney injury. She was discharged on a course of Levaquin. Urine culture was positive for enterobactor cloacae and the bacteria was found to be sensitive to the Levaquin. Patient has been taking this as prescribed since discharge. She is still residing at [facility] and was found to have bc hematuria in the catheter this morning. She was also said to be hypotensive by the staff at [facility] as well as in the ED. Blood cultures obtained and patient started on IV cefepime based on sensitivity from the urine culture. 09/23 The patient was seen in the emergency department. Palliative care philosophies and services explained to the patient. Education provided regarding the patient's sepsis/bladder perforation. The patient stated "I am done. I do not want any more testing or surgery". She was reminded that she was scheduled for a cystoscopy with urology at 2pm today. She asked if she could refuse the cystoscopy. She is "sick of all the poking and prodding". She stated that it was pointless to have a cystoscopy if she did not want any surgery or treatment anyway. She stated that she has been through too much, and so has her family. Her goals are to live with the best quality of life she can for her time remaining, and for comfort. She stated that she does not want to come back to the hospital again and will "refuse to get in the ambulance". She also stated she wanted to be a DNR. Advanced directives in the EMR confirm her wishes to be a DNR. Code status changed to DNR in the EMR. The patient indicated that her oldest son, Jose, was her DPOA. He and his were contacted via telephone. They report talking to the patient last night and are in agreement with a hospice informational meeting. Dr. Kitchen notified of patient's wishes to cancel her cystoscopy. He stated that he would like to talk to the patient and then would contact urology and update on the plan of care. Awaiting Dr. Kitchen's assessment, then will consult hospice. RN, Roula, updated as well. 09/24 The patient is resting in bed and is tearful stating her back is hurting terribly. RN notified that patient requesting a [place] and to be repositioned. The patient stated she is in too much pain and too tired to eat her breakfast. She remains hypotensive, 80/38, despite fluid resuscitation. library monitor show A fib at 94 bpm. She also stated that she spoke to her sons again yesterday and nothing has changed. She still wants to remain a DNR. She does not want any more treatment or surgery. She also does not want to come back and forth to the hospital anymore. "I've been through too much". Attempted to call her son, Jose, but he did not answer. Left message, awaiting call back. 09/25 The patient was examined at bedside. She is lethargic, confused, and has garbled speech. She is hypotensive with a BP of 69/44. CARISSA Carrillo at bedside. She states the patient has had very low urine output for the last 17 hours. The patient's breathing is labored. She is asking for her family and stating "I am ready to meet Lane". The patient's son, Jose, and [id number]-aca, Aleena, was notified that she has taken a turn for the worse, is not doing well, and is asking for them. They stated they would come in right away and want to make her comfortable. Dr. Kitchen notified. He stated he was on his way in to see her now. The patient's IV fluids were stopped and a dose of IV lasix was given. The patient seems to be waking up a bit more. BP improved slightly. Urine output remains low. Dr. Kitchen at bedside to assess patient. He spoke with the patient's family and agreed to make her comfortable. Comfort meds were ordered. Emotional support and education provided to the patient and family. The patient is resting in bed surrounded by family. She appears comfortable and breathing less labored after receiving Morphine. Objective - Vital Signs Vital signs: Vital Signs Temp 98.2 F 09/26/21 20:00 Pulse 133 H 09/28/21 07:02 Resp 10 L 09/28/21 07:02 BP 68/45 09/26/21 20:00 Pulse Ox 92 L 09/26/21 09:25 FiO2 Intake & Output 09/27/21 09/28/21 09/28/21 18:59 06:59 18:59 Intake Total 0 Output Total 400 50 Balance -400 -50 Intake: Oral 0 Output: Urine 400 50 Other: Voiding Method Indwelling Catheter Indwelling Catheter # Voids 0 - Exam General: pt unresponsive, appears comfortable HEENT: Head is atraumatic, normocephalic CV: Heart irregular in rate and rhythm positive S1 and S2. Lungs: Scattered Rhonchi throughout, agonal respirations, and upper airway secretions Abdomen/GI: Soft. Bowel sounds present in all 4 quadrants. : Bagley catheter Musculoskeletal/ Extremities: No ecchymosis. + genrealized weakness Vascular: Radial pulses equal. 214. Pedal pulses 1/4. 2+weeping edema to bilateral upper and lower extremities Skin: Cool and dry No rash. Neurologic: unresponsive. Psychiatric: unable to assess - Labs CBC & Chem 7: 09/24/21 09:47 09/25/21 08:36 Labs: Microbiology - Last 24 Hours (Table) 09/22/21 21:04 Blood Culture - Preliminary Blood No Growth after 120 hours 09/22/21 21:09 Blood Culture - Preliminary Blood No Growth after 120 hours Assessment and Plan Assessment: Symptoms * Pain - CPOT 0, Continue Morphine prn * Fatigue - unresponsive * SOB - agonal breathing, continue Morphine prn, added scopolamine for secretions * Insomnia - unresponsive * N/V - continue Zofran prn * Anxiety/agitation - unresponsive, continue Ativan prn * Depression - unresponsive * Confusion - unresponsive * Hallucinations - unresponsive * Appetite/weight loss - NPO/unresponsive * Dysphagia - NPO * Constipation - No, Continue dulcolax prn, LBM 09/23 * Incontinence - Bagley in place Plan: Summary/Goals - The patient is unresponsive, but appears comfortable. The RN states she is unable to get a blood pressure on the patient. She has upper airway secreations she is unable to clear, a Scopolamine patch was ordered. Her daughter in law, Aleena, and 2 of the patient's nieces were at the bedside. They stated the patient has had multiple family members up to visit over the weekend to say goodbye. The patient's coat feller has also been to visit a couple of times. Emotional support provided to family. The family seems to be at peace. They are ready for her to "let go". Recommendations - Comfort measures Advanced Directives - Yes, available in EMR Code Status - DNR Thank you for this consult [facility]- Palliative Care [facility] [address] Email: [email or web address] Time with Patient: Greater than 30
--- NOTE | 2021-09-28 11:18 | CDI ---
Documentation Clarification Form Date: 09/28/2021 11:06:03 AM From: Simran Key CCS, CCDS Admit Date: 09/22/2021 11:01:00 PM Patient Name: Fabby Hanley I Visit Number: [id number] Discharge Date: ATTENTION: The Clinical Documentation Specialists (CDI) and [facility] Coding Staff appreciate your assistance in clarifying documentation. Please respond to the clarification below the line at the bottom and electronically sign. The CDI & [facility] Coding staff will review the response and follow-up if needed. Please note: Queries are made part of the Legal Health Record. If you have any questions, please contact the author of this message via ITS. Dr. Ozzy Kitchen: Acute on Chronic Kidney Injury is documented in the patient's History of Present Illness beginning in the 09/22 ED note and in subsequent Progress Notes. Nephrology is not consulted. Additional clarification regarding the stage of CKD is requested. History/Risk Factors per the 09/23 H/P: DVT, Atrial Fibrillation, Multiple Myeloma, Chronic Diastolic CHF, COPD, Hypertension, Hyperlipidemia, Osteoarthritis, Rheumatoid arthritis, Gout, Bradycardia with pacemaker. Clinical Indicators: Presented to the ED on 09/22 with Hematuria. Has a known bladder perforation, was discharged from this facility yesterday after a 3 day admission for Sepsis, UTI & JOSS on CKD, discharged home on Levaquin. Found to have bc hematuria in his catheter this am, hypotensive per shelter staff, asymptomatic. Admit with Hypotension, Atrial fibrillation with RVR, Septic Shock. LAB: 09/22 BUN: 26. 09/23: 27. 09/24: 31. 09/25: 35 09/22 Creatinine: 1.68. 09/23: 1.62. 09/24: 1.54. 09/25: 1.66 09/22 GFR: 28. 09/23: 29. 6: 31. 09/25: 28. Historical GFR: 02/28/2018: 53.2. 02/28/2020: 46.7. 07/28/2020: 59.5. 07/07/2021: 55.5 Treatment 09/22: Blood pressure monitoring, Telemetry, Consult to Palliative Care, Blood Culture x2, O2 2Lnc, IV Na Chl 2,000 mls @ 999 mls/hr q2H, IV Cefepime 100 mls @ 200 mls/hr x1, IV Na Chl 1,000 mls @ 130 mls/hr q7H, IV Na Chl 500 mls @ 1000 mls/hr q35M, IV Na Chl 1,000 mls @ 999 mls/hr q1H, IV Zofran 4 mg q8H, INH Duoneb 3 ml x1 Please clarify the stage of the CKD, if known: [ ] CKD Stage 3 (GFR 30-59) [ ] CKD Stage 3a (GFR 45-59) [ ] CKD Stage 3b (GFR 30-44) [ ] CKD Stage 4 (GFR 15-29) [ ] Other, please specify [ ] Unable to determine (Template Last revised: May 2020) MTDD
--- NOTE | 2021-09-28 11:30 | CDI ---
Documentation Clarification Form Date: 09/28/2021 11:21:00 AM From: Simran Key CCS, CCDS Admit Date: 09/22/2021 11:01:00 PM Patient Name: Fabby Hanley I Visit Number: [id number] Discharge Date: ATTENTION: The Clinical Documentation Specialists (CDI) and [facility] Coding Staff appreciate your assistance in clarifying documentation. Please respond to the clarification below the line at the bottom and electronically sign. The CDI & [facility] Coding staff will review the response and follow-up if needed. Please note: Queries are made part of the Legal Health Record. If you have any questions, please contact the author of this message via ITS. Dr. Ozzy Kitchen: The patient is readmitted with JOSS with ATN, Hypotension likely precipitated by a combination of Dehydration and Atrial Fibrillation w/RVR.. Has Chronic UTI with Cystitis secondary to Bagley catheter with history of recent Bladder Infection/Perforation with hemorrhage and recent positive culture for Enterobacter Cloacae. Additional clarification regarding possible shock is requested. History/Risk Factors per the 09/23 H/P: DVT, Atrial Fibrillation, Multiple Myeloma, Chronic Diastolic CHF, COPD, Hypertension, Hyperlipidemia, Osteoarthritis, Rheumatoid arthritis, Gout, Bradycardia with pacemaker. Clinical Indicators: Presented to the ED on 09/22 with Hematuria. Has a known bladder perforation, was discharged from this facility yesterday after a 3 day admission for Sepsis, UTI & JOSS on CKD, discharged home on Levaquin. Found to have bc hematuria in his catheter this am, hypotensive per halfway staff, asymptomatic. Admit with Hypotension, Atrial fibrillation with RVR, Septic Shock. Per the H/P: No Sepsis 09/22 VS: T 99.0, P 118, R 18, BP 78/46, PO 93 RA - 97 2Lnc, BMI: 35.5 09/22 LAB: WBC 20.9, RBC 3.46, Hgb 11.0, Plt Count 516, Neutrophils 17.90, Monocytes 1.25; PT 13.8, INR 1.3; Na 127, CO2 20, BUN 26, Creatinine 1.68, Lactic Acid 2.4^^, Alkaline Phosphatase 137, total Protein 4.6, Albumin 2.0 09/22 CXR: There is some interstitial infiltrate and atelectasis at the lung bases. This appears increased compared to old exam. No obvious heart failure. Treatment 09/22: Blood pressure monitoring, Telemetry, Consult to Palliative Care, Blood Culture x2, O2 2Lnc, IV Na Chl 2,000 mls @ 999 mls/hr q2H, IV Cefepime 100 mls @ 200 mls/hr x1, IV Na Chl 1,000 mls @ 130 mls/hr q7H, IV Na Chl 500 mls @ 1000 mls/hr q35M, IV Na Chl 1,000 mls @ 999 mls/hr q1H, IV Zofran 4 mg q8H, INH Duoneb 3 ml x1 Please clarify the type of shock, if known: [ ] Hypovolemic Shock [ ] Hemorrhagic Shock [ ] Other, please specify [ ] Unable to determine (Template Last Revised: June 2020) MTDD
--- NOTE | 2021-09-28 14:56 | P.PN ---
Subjective Progress Note Date: 09/28/21 Acute kidney injury Persistent atrial fibrillation with a rapid ventricular rate Chronic UTI with cystitis 86-year-old patient follows with Dr. Rayo at [facility]. Patient was discharged hospital 09/07/2021.. Had severe bleeding and coagulopathy secondary to anticoagulation. Also abdominal wall and pelvic hematoma and a urinary bladder hematoma. Computed tomography scan showed contrast extravasation suspicion for perforation of the bladder. Bagley catheter placed. Blood loss anemia. Also UTI from enterococcus group D. With sepsis. History of DVT and atrial fibrillation. Multiple myeloma. Chronic diastolic CHF. Patient admitted from 09/18 through 09/21/2021. Presented with decreased urine output Bagley catheter was clogged up. Patient says she does not want any surgical intervention. Seen by Dr. johnson-urology.Urine culture came back showing Enterobacter cloacae. Discharged on Levaquin. Patient also to acute kidney injury that resolved with IV fluids. Patient now presents feeling weak and tired. Patient's was found to be in atrial fibrillation with rapid ventricular rate. Blood pressure is running low. Also patient's found to be in acute kidney injury. Creatinine is gone up. No fever. Patient started IV fluids. Feels very dry mouth. Tired. Patient does not want to have a bladder cystogram that was scheduled for today. Admitted with acute kidney injury. Atrial fibrillation uncontrolled. Started IV fluids. Lopressor continued. 09/27/2021 Patient seen and evaluated in room at bedside; remains comfortable; breathing comfortably; remains unresponsive Multiple family members present in the room; patient's condition and further plan of care was discussed in great detail; family report like to continue with current comfort measures to able to talk to hospice in next 24-48 hours; he is also requesting to continue with inpatient hospice; requesting to continue current comfort care medications which seem to be working 09/28/2021 Patient is seen in follow-up this morning with multiple family members at the bedside. Patient continues on comfort measures. Apparently [facility] hospice with the family and patient was started on comfort measures and will not be flipping to GIP status with [facility] as patient is currently on comfort measures only per family request. Patient is maintained on IV push morphine along with scopolamine and Ativan as needed. Patient does have a pacemaker and family requesting a magnet be placed on the pacemaker and will discuss with nursing staff. Review of systems: Unable to obtain as patient is unresponsive Active Medications Bisacodyl (Bisacodyl 10 Mg Supp) 10 mg RECTAL DAILY PRN PRN Reason: Constipation Lorazepam (Lorazepam 0.5 Mg Tab) 0.5 mg PO Q4HR PRN PRN Reason: Moderate Anxiety Lorazepam (Lorazepam 1 Mg Tab) 1 mg PO Q4HR PRN PRN Reason: Severe Anxiety Last Admin: 09/25/21 14:05 Dose: 1 mg Lorazepam (Lorazepam 2 Mg/Ml Inj) 1 mg IV Q4HR PRN PRN Reason: Anxiety (ONLY IF NO PO) Last Admin: 09/26/21 23:12 Dose: 1 mg Lorazepam (Lorazepam 2 Mg/Ml Inj) 0.5 mg IV Q4HR PRN PRN Reason: Anxiety (ONLY IF NO PO) Last Admin: 09/28/21 07:08 Dose: 0.5 mg Morphine Sulfate (Morphine Sulfate 2 Mg/Ml Syringe) 2 mg IVP Q3HR PRN PRN Reason: Pain/Discomfort Last Admin: 09/28/21 14:36 Dose: 2 mg Ondansetron HCl (Ondansetron 4 Mg/2 Ml Vial) 4 mg IVP Q8HR PRN PRN Reason: Nausea And Vomiting Last Admin: 09/26/21 09:27 Dose: 4 mg Scopolamine (Scopolamine 1 Mg/72 Hr Patch) 1 patch TRANSDERM Q72H SUBHASH Last Admin: 09/28/21 10:35 Dose: 1 patch Physical exam: GENERAL: This is an 86-year-old female unresponsive, obese EYES: Pupils pinpoint. Conjunctiva normal. HEENT: External appearance of nose and ears normal, oral cavity dry mucous membranes. NECK: JVD not raised; masses not palpable. HEART: S1, S2 are muffled LUNGS: Diminished breath sounds bilaterally with scattered crackles noted ABDOMEN: Soft, obese, nontender, normal bowel sounds noted MUSCULOSKELETAL: Generalized edema noted of the lower extremities NEUROLOGICAL: Unable to assess as patient is unresponsive Skin: Sacral decubitus stage II ulcer Assessment: Acute kidney injury Hypotension possibly secondary to dehydration and A. fib with RVR Persistent atrial fibrillation with RVR Chronic UTI with cystitis, secondary to indwelling Bagley catheter, recent bladder infection with perforation with hemorrhage and cultures were positive for enterobacter cloacae Recent bladder perforation with bleeding and urology recommending cystogram although patient refusing any further testing and cystogram was canceled COPD, acute exacerbation Hyperlipidemia Depression History of left upper arm DVT with anticoagulation on hold due to bleeding Hypertension Chronic gout No code Plan: Recommend to continue with current comfort measures and patient is maintained on IV push morphine along with Ativan with multiple family members at the bedside. Patient does have a pacemaker and family inquiring about possibly placing a magnet over the pacemaker [facility] met with the family and continued on comfort measures per family request. Discussed with family patient appearing in more distress can change morphine to morphine drip Due to multiple convex medical issues, overall prognosis is extremely poor and guarded Will continue to follow along closely and continue with comfort measures only per family request. The impression and plan of care has been dictated by Verena Potter, Nurse Practitioner as directed. Dr. Diego MD I have performed a history and examination and MDM of this patient, discussed the same with the dictator, and agree with the dictator's assessment and plan as written ,documented as a scribe. Based on total visit time, I have performed more than 50% of the visit. Objective - Vital Signs Vital signs: Vital Signs Temp 98.2 F 09/26/21 20:00 Pulse 133 H 09/28/21 07:02 Resp 10 L 09/28/21 07:02 BP 68/45 09/26/21 20:00 Pulse Ox 92 L 09/26/21 09:25 FiO2 Intake & Output 09/27/21 09/28/21 09/28/21 18:59 06:59 18:59 Intake Total 0 Output Total 400 50 Balance -400 -50 Intake: Oral 0 Output: Urine 400 50 Other: Voiding Method Indwelling Catheter Indwelling Catheter # Voids 0 - Labs CBC & Chem 7: 09/24/21 09:47 09/25/21 08:36 Labs: Microbiology - Last 24 Hours (Table) 09/22/21 21:04 Blood Culture - Preliminary Blood No Growth after 120 hours 09/22/21 21:09 Blood Culture - Preliminary Blood No Growth after 120 hours
[2021-09-28] MEDS ORDERED: MORPHINE SULFATE (100 MG/2 ML) 100 MG in SODIUM CHLORIDE 0.9% 100 ML IV SCH (22:00)
[2021-09-28 22:49] VITALS: PULSE 150; RESP 19
--- NOTE | 2021-09-30 11:21 | P.DS ---
Providers Date of admission: 09/22/21 23:01 Expected date of discharge: 09/29/21 Attending physician: Ozzy Kitchen Consults: 09/22/21 19:30 Consult to Palliative Care Urgent Consulting Provider: Belgica Resendez Consult Reason/Comments: Severe emotional stress related to kidney disease and bladder perforation Do you want consulting provider notified?: Yes, Notify in am Primary care physician: [facility] Hospital Course: Preliminary cause of UTI with sepsis and recent bladder perforation Final diagnosis CKD stage IV Hypovolemic shock, present on admission Acute kidney injury UTI with sepsis, present on admission Hypotension possibly secondary to dehydration and A. fib with RVR Persistent atrial fibrillation with RVR Chronic UTI with cystitis, secondary to indwelling Bagley catheter, recent bladder infection with perforation with hemorrhage and cultures were positive for enterobacter cloacae Recent bladder perforation with bleeding and urology recommending cystogram although patient refusing any further testing and cystogram was canceled COPD, acute exacerbation Hyperlipidemia Depression History of left upper arm DVT with anticoagulation on hold due to bleeding Hypertension Chronic gout No code Discharge disposition Patient has . According to nursing documentation, time of was 2210 on 09/28/2021. Multiple family members at the bedside. Hospital course This is an 86-year-old female who is a resident at [facility] and recently discharged from the hospital the beginning of September patient continued to have bleeding along with an abdominal wall and pelvic hematoma and urinary bladder hematoma. Patient had a perforation of the bladder with continued bleeding and also known for chronic UTI with cystitis and cultures enterococcus group D with features of sepsis, present on admission. Patient with an extensive past medical history also found to be in atrial fibrillation with RVR and worsening kidney functions. Patient was initially scheduled to have a cystogram of the bladder and urology following although patient refused and canceled the procedure. Patient did not want to seek any further treatment. Patient and family requesting hospice and patient was placed on comfort measures. According to nursing documentation, the time of was 2210 with multiple family me mbers present. Patient was continued on comfort measures per family request. Please refer to previous dictations for further HPI The impression and plan of care has been dictated by Verena Potter, Nurse Practitioner as directed. Dr. Diego MD I have performed a history and examination and MDM of this patient, discussed the same with the dictator, and agree with the dictator's assessment and plan as written ,documented as a scribe. Based on total visit time, I have performed more than 50% of the visit. Patient Condition at Discharge: Poor Plan - Discharge Summary Discharge Rx Participant: No New Discharge Prescriptions: No Action Bimatoprost [Lumigan 0.01% Ophth Soln] 1 drop BOTH EYES HS@1999 Montelukast [Singulair] 10 mg PO HS@1999 allopurinoL [Zyloprim] 100 mg PO BID@0800,1999 DULoxetine HCL [Cymbalta] 60 mg PO HS@1999 Nitroglycerin Sl Tabs [Nitrostat] 0.4 mg SUBLINGUAL Q5M PRN PRN Reason: Chest Pain Multivitamins, Thera [Multivitamin (formulary)] 1 tab PO DAILY@1700 Folic Acid 1 mg PO DAILY@0800 Metoprolol Tartrate [Lopressor] 25 mg PO BID@0800,1700 Psyllium Husk 100% [Metamucil Packet] 6 gm PO DAILY@0800 ondansetron HCL [Zofran] 8 mg PO Q6H PRN PRN Reason: Nausea Acetaminophen Tab [Tylenol] 650 mg PO Q6HR PRN tab PRN Reason: Mild Pain Or Fever > 100.5 Ascorbic Acid [Vitamin C] 1,000 mg PO DAILY@1700 bisacodyL [Dulcolax] 10 mg RECTAL DAILY PRN PRN Reason: Constipation Cholecalciferol [Vitamin D3 (125 Mcg = 5000 Iu)] 125 mcg PO DAILY@1700 Tiotropium 2.5 Mcg/Puff [Spiriva Respimat 2.5 Mcg] 2 puff INHALATION RT- DAILY@0800 Zinc Gluconate [Zinc] 50 mg PO DAILY@1700 Magnesium Hydroxide [Milk of Magnesia Concentrate] 7,200 mg PO DAILY PRN PRN Reason: Constipation Loperamide [Imodium] 2 mg PO QID PRN PRN Reason: LOOSE STOOLS Gabapentin [Neurontin] 400 mg PO BID@0800,2100 #6 cap HYDROcodone/APAP 5-325MG [Gregory 5-325] 1 tab PO Q8HR PRN #9 tab PRN Reason: Pain Levofloxacin [Levaquin] 250 mg PO DAILY@0800 Atorvastatin [Lipitor] 20 mg PO DAILY@1700 Acyclovir [Zovirax] 400 mg PO BID@0800,1999 Docusate [Colace] 100 mg PO DAILY@0800 Calcium Carbonate/Vitamin D3 [Calcium 600 mg-D3 10 Mcg (400 Iu)] 1 cap PO DAILY@170 guaiFENesin-DM 100-10MG/5ML [Robitussin DM] 10 ml PO Q6HR PRN ml PRN Reason: Cough Albuterol Inhaler [Ventolin Hfa Inhaler] 2 puff INHALATION RT-Q2H PRN gm PRN Reason: Shortness Of Breath Or Wheezing Budesonide-Formot 160-4.5 Mcg [Symbicort 160-4.5 Mcg Inhaler] 2 puff INHALATION RT-BID@0800,1700 Na Phos,M-B/Na Phos,Di-Ba [Fleet Adult] 133 ml RECTAL DAILY PRN PRN Reason: Constipation Albuterol Sulfate [Ventolin HFA] 2 puff INHALATION RT-QID@,,, Omeprazole 20 mg PO BID@0800,170 ALPRAZolam [Xanax] 0.25 mg PO BID PRN #6 tab PRN Reason: Anxiety Discharge Medication List Bimatoprost [Lumigan 0.01% Ophth Soln] 1 drop BOTH EYES HS@199911/07/13 [History] Montelukast [Singulair] 10 mg PO HS@199911/07/13 [History] allopurinoL [Zyloprim] 100 mg PO BID@799,199907/09/14 [History] DULoxetine HCL [Cymbalta] 60 mg PO HS@199911/22/18 [History] Folic Acid 1 mg PO DAILY@0800 02/10/20 [History] Multivitamins, Thera [Multivitamin (formulary)] 1 tab PO DAILY@169902/10/20 [History] Nitroglycerin Sl Tabs [Nitrostat] 0.4 mg SUBLINGUAL Q5M PRN 02/10/20 [History] Atorvastatin [Lipitor] 20 mg PO DAILY@169908/31/20 [History] Metoprolol Tartrate [Lopressor] 25 mg PO BID@0800,169908/31/20 [History] Acyclovir [Zovirax] 400 mg PO BID@08,199908/03/21 [History] Calcium Carbonate/Vitamin D3 [Calcium 600 mg-D3 10 Mcg (400 Iu)] 1 cap PO DAILY@17008/03/21 [History] Docusate [Colace] 100 mg PO DAILY@0808/03/21 [History] Psyllium Husk 100% [Metamucil Packet] 6 gm PO DAILY@0800 08/03/21 [History] ondansetron HCL [Zofran] 8 mg PO Q6H PRN 08/03/21 [History] Acetaminophen Tab [Tylenol] 650 mg PO Q6HR PRN tab 08/19/21 [Rx] Albuterol Inhaler [Ventolin Hfa Inhaler] 2 puff INHALATION RT-Q2H PRN gm 08/19/21 [Rx] guaiFENesin-DM 100-10MG/5ML [Robitussin DM] 10 ml PO Q6HR PRN ml 08/19/21 [Rx] Ascorbic Acid [Vitamin C] 1,000 mg PO DAILY@169908/25/21 [History] Budesonide-Formot 160-4.5 Mcg [Symbicort 160-4.5 Mcg Inhaler] 2 puff INHALATION RT-BID@0800,17008/25/21 [History] Cholecalciferol [Vitamin D3 (125 Mcg = 5000 Iu)] 125 mcg PO DAILY@169908/25/21 [History] Na Phos,M-B/Na Phos,Di-Ba [Fleet Adult] 133 ml RECTAL DAILY PRN 08/25/21 [History] Tiotropium 2.5 Mcg/Puff [Spiriva Respimat 2.5 Mcg] 2 puff INHALATION RT- DAILY@0808/25/21 [History] Zinc Gluconate [Zinc] 50 mg PO DAILY@169908/25/21 [History] bisacodyL [Dulcolax] 10 mg RECTAL DAILY PRN 08/25/21 [History] Albuterol Sulfate [Ventolin HFA] 2 puff INHALATION RT-QID@08,12,17,09/18/21 [History] Loperamide [Imodium] 2 mg PO QID PRN 09/18/21 [History] Magnesium Hydroxide [Milk of Magnesia Concentrate] 7,200 mg PO DAILY PRN 09/18/21 [History] Omeprazole 20 mg PO BID@0800,1700 09/18/21 [History] ALPRAZolam [Xanax] 0.25 mg PO BID PRN #6 tab 09/21/21 [Rx] Gabapentin [Neurontin] 400 mg PO BID@0800,2100 #6 cap 09/21/21 [Rx] HYDROcodone/APAP 5-325MG [Gregory 5-325] 1 tab PO Q8HR PRN #9 tab 09/21/21 [Rx] Levofloxacin [Levaquin] 250 mg PO DAILY@0800 09/22/21 [History] Follow up Appointment(s)/Referral(s): Royer Rayo DO [Primary Care Provider] - 1-2 days Discharge Disposition: - Preliminary Cause of Preliminary Cause of : UTI with sepsis and recent bladder perforation
--- NOTE | 2021-09-30 16:23 | CDI ---
Documentation Clarification Form Date: 09/30/2021 03:29:46 PM From: Carla Trimble RN, CCDS Email: [email or web address] Admit Date: 09/22/2021 11:01:00 PM Patient Name: Fabby Hanley I Visit Number: [id number] Discharge Date: 09/28/2021 10:11:00 PM ATTENTION: The Clinical Documentation Specialists (CDI) and [facility] Coding Staff appreciate your assistance in clarifying documentation. Please respond to the clarification below the line at the bottom and electronically sign. The CDI & [facility] Coding staff will review the response and follow-up if needed. Please note: Queries are made part of the Legal Health Record. If you have any questions, please contact the author of this message via ITS. Dr. Justice Cortez Conflicting documentation has been found in the medical record. As attending physician, please provide clarification. "No sepsis" is documented in the progress notes 09/23-09/25. "Preliminary cause of : UTI with sepsis" is documented in the discharge summary. History/Risk Factors: recent admissions for UTI, JOSS, sepsis and bladder perforation. Hx of multiple myeloma and afib Clinical Indicators: ED note: The patient's elevated WBC, BP, and HR meat SIRS criteria and the known UTI due to Enterobacter cloacae meets Sepsis criteria. 09/23 H&P: presents feeling weak and tired. Patient was found to be in atrial fibrillation with rapid ventricular rate. Blood pressure is running low. Also patient's found to be in acute kidney injury. Creatinine is gone up. No fever. Patient started IV fluids. Feels very dry mouth. Tired. 09/25 Dr. Patrick: Patient has a known bladder perforation and was discharged from this facility yesterday after a 3 day admission for sepsis, a UTI, and acute on chronic kidney injury. Discharge summary: CKD stage IV, Hypovolemic shock present on admission, Acute kidney injury, UTI with sepsis present on admission. Admission labs: WBC 20.9, Cr 1.68, lactic acid 2.4 Admission vital signs: Temp 99.0, HR 118, BP 78/46, pox 93% Treatment: IV 0.9 NS 2L bolus on 09/22, IV Cefepime 100 mls on 09/22 and 09/23, IV 0.9 Na 1,000 mls @ 130 mls/hr Please clarify which diagnosis after work-up is most appropriate: [ ] Sepsis due to UTI from indwelling bernabe catheter [ ] No Sepsis [ ] Other (please specify) [ ] Unable to determine Sepsis due to UTI from indwelling bernabe catheter MTDD
== END 2021-09-28 22:11 | disposition expired | DRG 698 ==
LOC: EC 18:00 → 3SCARD 23:01 → 2SICU 09-23 04:53 → 3SCARD 09-23 15:25
PROVIDERS: ADMIT Hospitalist; ATTEND Hospitalist
DX: T83.511A Infection and inflammatory reaction due to indwelling urethral catheter, initial encounter (principal); A41.9 Sepsis, unspecified organism; N17.0 Acute kidney failure with tubular necrosis; C90.00 Multiple myeloma not having achieved remission; D68.9 Coagulation defect, unspecified; E87.1 Hypo-osmolality and hyponatremia; E87.2 Acidosis; I13.0 Hypertensive heart and chronic kidney disease with heart failure and stage 1 through stage 4 chronic kidney disease, or unspecified chronic kidney disease; I48.19 Other persistent atrial fibrillation; I50.32 Chronic diastolic (congestive) heart failure; J98.11 Atelectasis; T80.818A Extravasation of other vesicant agent, initial encounter; N18.4 Chronic kidney disease, stage 4 (severe); E66.9 Obesity, unspecified; R57.1 Hypovolemic shock; M06.9 Rheumatoid arthritis, unspecified; J44.9 Chronic obstructive pulmonary disease, unspecified; Z68.35 Body mass index [BMI] 35.0-35.9, adult; F32.A Depression, unspecified; Z86.718 Personal history of other venous thrombosis and embolism; Z66 Do not resuscitate; Z51.5 Encounter for palliative care; D50.0 Iron deficiency anemia secondary to blood loss (chronic); N30.21 Other chronic cystitis with hematuria; D53.9 Nutritional anemia, unspecified; B95.2 Enterococcus as the cause of diseases classified elsewhere; E86.0 Dehydration; E78.5 Hyperlipidemia, unspecified; K59.00 Constipation, unspecified; M19.90 Unspecified osteoarthritis, unspecified site; G47.00 Insomnia, unspecified; H91.90 Unspecified hearing loss, unspecified ear; M1A.9XX0 Chronic gout, unspecified, without tophus (tophi); F41.9 Anxiety disorder, unspecified; N32.89 Other specified disorders of bladder; R13.10 Dysphagia, unspecified; I25.10 Atherosclerotic heart disease of native coronary artery without angina pectoris; I34.0 Nonrheumatic mitral (valve) insufficiency; R31.0 Gross hematuria; Y84.6 Urinary catheterization as the cause of abnormal reaction of the patient, or of later complication, without mention of misadventure at the time of the procedure; Z79.51 Long term (current) use of inhaled steroids; Z79.899 Other long term (current) drug therapy; Z80.8 Family history of malignant neoplasm of other organs or systems; Z87.891 Personal history of nicotine dependence; Z95.0 Presence of cardiac pacemaker; Z96.651 Presence of right artificial knee joint; Z98.890 Other specified postprocedural states; H40.9 Unspecified glaucoma; L30.9 Dermatitis, unspecified; Z60.2 Problems related to living alone; Z87.440 Personal history of urinary (tract) infections; Z28.21 Immunization not carried out because of patient refusal; Z88.8 Allergy status to other drugs, medicaments and biological substances; M50.30 Other cervical disc degeneration, unspecified cervical region; Z90.89 Acquired absence of other organs; Z98.51 Tubal ligation status; Z98.42 Cataract extraction status, left eye; Z98.41 Cataract extraction status, right eye; Z80.9 Family history of malignant neoplasm, unspecified; Z90.49 Acquired absence of other specified parts of digestive tract; Z83.6 Family history of other diseases of the respiratory system
CPT/HCPCS: 36415; 71045; 80048; 80053; 83605; 83735; 83880; 84100; 84484; 85025; 85027; 85610; 87040; 93005; 94640; 94760; 96365; 96366; 96372; 99285